=== PATIENT | male | born 1965 | race Caucasian/White ===

== ENCOUNTER 2017-10-16 18:22 | Inpatient (IN) | END 2017-11-05 16:15 | disposition home or self-care (01) | DRG 854 ==

== ENCOUNTER 2018-02-13 14:26 | Emergency (ER) | END 2018-02-13 19:52 | disposition home or self-care (01) ==

== ENCOUNTER 2018-03-13 17:44 | Inpatient (IN) | END 2018-03-18 18:57 | disposition home health service (06) | DRG 617 ==

== ENCOUNTER 2018-07-03 15:40 | Inpatient (IN) | payer OTHER ==
[~2018-07-03] VITALS: Ht 162.6 cm; Wt 76.1 kg
[~2018-07-03 15:40] MED LIST: LINA5TAB PO; OXYC-438 PO
[2018-07-03] MEDS ORDERED: SOD CHLORIDE 0.9% 500 ML IV STA (21:02)
[2018-07-03] MEDS ORDERED: KETOROLAC 15 MG INJ IV STA (21:02)
--- NOTE | 2018-07-03 21:02 | ERD ---
ER Documentation Chief Complaint Chief Complaint R FOOT DIABETIC ULCER HPI 52-year-old man with a long history of diabetic foot ulcers, foot osteomyelitis, status post left fifth and fourth toe amputation presents with increasing pain, swelling, redness to both feet and purulent malodorous discharge from the sole of the left foot. He denies using antibiotics recently, he has had fever times 2 days, denies cough or sore throat, no abdominal pain, no vomiting or diarrhea, no chest pain or shortness of breath. ROS All systems reviewed and are negative except as per history of present illness. Medications Home Meds Active Scripts Linagliptin (TRADJENTA) 5 Mg Tablet, 5 MG PO DAILY for 30 Days, TAB Prov:GINA SUTTON MD 03/18/18 Oxycodone HCl/Acetaminophen (Oxycodone-Acetaminophen 5-325) 1 Each Tablet, 1 TAB PO Q4H PRN for MODERATE PAIN LEVEL 4-6 for 10 Days, TAB Prov:GINA SUTTON MD 03/18/18 Allergies Allergies: Coded Allergies: No Known Allergy (Unverified , 03/13/18) PMhx/Soc Diabetic foot ulcers, status post left fifth and fourth toe amputations, osteomyelitis of the feet, peripheral vascular disease, peripheral neuropathy, hypertension, chronic anemia, chronic kidney disease, history of foot gangrene History of Surgery: Yes (L 4th AND 5th toe amputation) Anesthesia Reaction: No Hx Neurological Disorder: No Hx Respiratory Disorders: No Hx Cardiac Disorders: No Hx Psychiatric Problems: No Hx Miscellaneous Medical Probl: Yes (DM, diabetic foot ulcers) Hx Alcohol Use: Yes (Former alcohol use) Hx Substance Use: No Hx Tobacco Use: No Smoking Status: Never smoker FmHx Family History: diabetes Physical Exam Vitals Vital Signs Date Temp Pulse Resp B/P (MAP) Pulse Ox O2 O2 Flow FiO2 Time Delivery Rate 07/03/18 98.0 101 18 192/93 99 15:54 (126) Physical Exam Const: No acute distress, afebrile HEENT: No jaundice, no icterus, normocephalic atraumatic Resp: Clear to auscultation bilaterally Cardio: Tachycardic and regular, no murmurs Abd: Soft, non tender, non distended. Normal bowel sounds Skin: No petechiae or rashes Back: No midline or flank tenderness Ext: No cyanosis, dry gangrenous ulcer to the sole of the right foot with skin induration and erythema to the dorsal aspects of both feet. There is ma lodorous purulent discharge from the sole of the left foot Neur: Awake and alert x3, no focal deficits or facial asymmetry, pupils equal round reactive to light Psych: Normal Mood and Affect Result Diagram: 07/03/18211807/03/182118 Results 24 hrs Laboratory Tests Test 07/03/18 21:19 White Blood Count 8.7 10^3/ul Red Blood Count 2.71 10^6/ul Hemoglobin 8.7 g/dl Hematocrit 24.7 % Mean Corpuscular Volume 91.1 fl Mean Corpuscular Hemoglobin 32.1 pg Mean Corpuscular Hemoglobin Concent 35.2 g/dl Red Cell Distribution Width 12.2 % Platelet Count 186 10^3/UL Mean Platelet Volume 9.3 fl Immature Granulocytes % 0.300 % Neutrophils % 69.0 % Lymphocytes % 19.3 % Monocytes % 9.2 % Eosinophils % 2.0 % Basophils % 0.2 % Nucleated Red Blood Cells % 0.0 /100WBC Immature Granulocytes # 0.030 10^3/ul Neutrophils # 6.0 10^3/ul Lymphocytes # 1.7 10^3/ul Monocytes # 0.8 10^3/ul Eosinophils # 0.2 10^3/ul Basophils # 0.0 10^3/ul Nucleated Red Blood Cells # 0.0 10^3/ul Prothrombin Time 14.0 Sec Prothrombin Time Ratio 1.1 INR International Normalized Ratio 1.07 Activated Partial Thromboplast Time 45.7 Sec Sodium Level 139 mmol/L Potassium Level 4.4 mmol/L Chloride Level 104 mmol/L Carbon Dioxide Level 25 mmol/L Anion Gap 10 Blood Urea Nitrogen 32 mg/dl Creatinine 1.79 mg/dl Est Glomerular Filtrat Rate mL/min 40 mL/min Glucose Level 171 mg/dl Calcium Level 9.0 mg/dl Total Bilirubin 1.0 mg/dl Direct Bilirubin 0.00 mg/dl Indirect Bilirubin 1.0 mg/dl Aspartate Amino Transf (AST/SGOT) 30 IU/L Alanine Aminotransferase (ALT/SGPT) 28 IU/L Alkaline Phosphatase 82 IU/L Ammonia 20 umol/l C-Reactive Protein 16.4 mg/dl Total Protein 6.9 g/dl Albumin 3.5 g/dl Globulin 3.40 g/dl Albumin/Globulin Ratio 1.02 Lipase 31 U/L Ethyl Alcohol Level < 10.0 mg/dl Current Medications Medications Dose Sig/Bridger Start Time Status Last (Trade) Ordered Route PRN Stop Time Admin Dose Reason Admin Sodium 500 ml @ Q1H STAT 07/03/18 DC 07/03/18 Chloride 500 mls/hr IV 21:02 07/03/18 21:34 22:01 Ketorolac 15 mg ONCE STAT 07/03/18 DC 07/03/18 Tromethamine IV 21:02 07/03/18 21:34 (Toradol) 21:07 Cefepime HCl 50 ml @ ONCE ONCE 07/03/18 DC 07/03/18 100 mls/hr IVPB 21:30 07/03/18 21:35 21:59 Vancomycin 250 ml @ ONCE ONCE 07/03/18 07/03/18 HCl 125 mls/hr IVPB 21:30 07/03/18 22:16 23:29 Procedures/MDM IV line was established patient was placed on wood miller rhythm strip revealed a sinus tachycardia at 100 Bpm with upright P and T waves. Patient was afebrile, blood and wound cultures were ordered results are pending I will follow-up. I administered 1 L normal saline IV, Toradol 15 mg IV, cefepime 1 g IV and vancomycin 1 g IV One AP view of the chest performed, read by me reveals no acute infiltrates, normal mediastinum, sharp costophrenic and cardiac borders, no air under the diaphragm. Otherwise unremarkable chest x-ray. X-ray left foot 3V Interpreted by me: Bones: Amputations of the left fifth and fourth phalanx Joints: No dislocation Foreign body: Vascular calcification X-ray right foot 3V Interpreted by me: Bones: No fracture Joints: No dislocation Foreign body: Vascular calcification CBC reveals anemia with hemoglobin of 8.7, electrolytes revealed dehydration with a BUN/creatinine of 32/1.8, C-reactive protein elevated at 16, liver function tests unremarkable, ethanol level negative Patient has gangrene, cellulitis, and infected diabetic foot ulcers. He will be admitted to [facility] for continued IV antibiotics as well as infectious disease and surgical consultations although this will be deferred to admitting team. Departure Diagnosis: Primary Impression: Open wound of left foot Encounter type: initial encounter Qualified Codes: S91.302A - Unspecified open wound, left foot, initial encounter Additional Impressions: Gangrene of right foot Cellulitis of foot Osteomyelitis Osteomyelitis type: unspecified type Osteomyelitis location: foot Laterality: right Qualified Codes: M86.9 - Osteomyelitis, unspecified Anemia Anemia type: unspecified type Qualified Codes: D64.9 - Anemia, unspecified Condition: Fair MARCO ANTONIO GARCIA MD Jul 03, 2018 21:02
[2018-07-03] MEDS ORDERED: VANCOMYCIN 1 GM (PMX) 250 ML IVPB ONE (21:30)
[2018-07-03] MEDS ORDERED: CEFEPIME 1GM/50 ML (PMX) 50 ML IVPB ONE (21:30)
[2018-07-04 00:05] VITALS: BP 172/92; PULSE 88; RESP 18
[2018-07-04 00:50] VITALS: Ht 162.6 cm; Wt 76.1 kg
[2018-07-04] MEDS ORDERED: HYDROCODONE/APAP (5/325) TAB PO PRN (01:30)
[2018-07-04 01:59] VITALS: BP 179/95; PULSE 97; RESP 18
[2018-07-04] MEDS ORDERED: GLUCOSE GEL 15 GRAM TUBE BUCCAL PRN (02:00)
[2018-07-04] MEDS ORDERED: PENDING SANTYL ORDER FOR WOUND CARE XX PRN (02:00)
[2018-07-04] MEDS ORDERED: GLUCAGON 1 MG INJ IM PRN (02:00)
[2018-07-04] MEDS ORDERED: DEXTROSE 50% 50 ML SYRINGE IV PRN ×2 (02:00)
[2018-07-04] MEDS ORDERED: GLUCOSE GEL 15 GRAM TUBE PO PRN ×2 (02:00)
[2018-07-04] MEDS: PANTOPRAZOLE (EC) 40 MG TAB PO SCH (06:04)
[2018-07-04 06:32] VITALS: BP 133/74; PULSE 73; RESP 16
[2018-07-04 08:00] VITALS: BP 126/68; PULSE 76; RESP 18
[2018-07-04] MEDS: CEFTRIAXONE 1 GM/50 ML (PMX) 50 ML IVPB SCH (08:14)
[2018-07-04] MEDS: ENOXAPARIN 40 MG/0.4 ML SYG SC SCH (08:20)
[2018-07-04] MEDS: INSULIN ASPART [NOVOLOG] 3 ML PEN SC SCH ×4 (08:23→21:26)
--- NOTE | 2018-07-04 13:19 | HP ---
Date/Time of Note Date/Time of Note DATE: 07/04/18 TIME: 13:16 Assessment/Plan VTE Prophylaxis Risk score (from Ns)>0 risk: 2 SCD applied (from [facility] [place]): No SCD contraindicated: other Pharmacological prophylaxis: LMWH Lines/Catheters IV Catheter Type (from [facility]): Saline Lock Urinary Cath still in place: No Assessment/Plan Hospital Course 1. Left foot cellulitis. Discoloration of 2 and 3 toes. S/p amputation of the left fourth digit and transmetatarsal amputation of the fifth digit. 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 On Xray soft tissue swelling. Vascular ca lcification consistent with atherosclerotic disease. 2. Anemia 3. Overweight 4. DANIELLE, creatinine 1.97. Pt creatinine was 1.73 in [facility] February 2018 and then return to normal 5. DM type II with diabetic neuropathy 6. Hypertension 7. Right foot sole wound 8. Peripheral vascular disease. On Duplex US 09/2017 Monophasic wave forms in bilateral posterior tibial arteries and dorsalis pedis arteries consistent with a significant bilateral infrapopliteal stenosis. Assessment/Plan -DVT prophylaxis Lovenox -GI prophylaxis Protonix -iron supplement BID -MRI left foot -ID consult dr Wolfe. aware -Podiatry consult dr Betancur. knows -wound care -repeat arterial US -Dr Vazquez consult, aware -gentle hydration Result Diagram: 07/04/18 0546 07/04/18 0546 Results 24hrs Laboratory Tests Test 07/03/18 21:19 07/04/18 00:29 07/04/18 05:46 07/04/18 08:13 White Blood Count 8.7 # 6.5 # Red Blood Count 2.71 L 2.27 L Hemoglobin 8.7 L 7.4 L Hematocrit 24.7 L 21.2 L Mean Corpuscular Volume 91.1 93.4 Mean Corpuscular 32.1 32.6 Hemoglobin Mean Corpuscular 35.2 34.9 Hemoglobin Concent Red Cell Distribution 12.2 11.9 Width Platelet Count 186 157 Mean Platelet Volume 9.3 10.1 Immature Granulocytes % 0.300 0.500 H Neutrophils % 69.0 70.1 Lymphocytes % 19.3 17.7 Monocytes % 9.2 9.1 Eosinophils % 2.0 2.3 Basophils % 0.2 0.3 Nucleated Red Blood 0.0 0.0 Cells % Immature Granulocytes # 0.030 0.030 Neutrophils # 6.0 4.5 Lymphocytes # 1.7 1.2 Monocytes # 0.8 0.6 Eosinophils # 0.2 0.2 Basophils # 0.0 0.0 Nucleated Red Blood 0.0 0.0 Cells # Prothrombin Time 14.0 Prothrombin Time Ratio 1.1 INR International 1.07 Normalized Ratio Activated 45.7 H Partial Thromboplast Time Sodium Level 139 142 Potassium Level 4.4 4.5 Chloride Level 104 109 Carbon Dioxide Level 25 27 Anion Gap 10 6 Blood Urea Nitrogen 32 H 32 H Creatinine 1.79 H 1.97 H Est Glomerular Filtrat 40 L 36 L Rate mL/min Glucose Level 171 174 Calcium Level 9.0 8.6 Total Bilirubin 1.0 1.1 Direct Bilirubin 0.00 0.00 Indirect Bilirubin 1.0 1.1 Aspartate Amino 30 21 Transf (AST/SGOT) Alanine 28 18 Aminotransferase (ALT/SG PT) Alkaline Phosphatase 82 68 Ammonia 20 C-Reactive Protein 16.4 H Total Protein 6.9 6.1 Albumin 3.5 2.9 L Globulin 3.40 H 3.20 Albumin/Globulin Ratio 1.02 0.90 Lipase 31 Ethyl Alcohol Level < 10.0 H Bedside Glucose 137 177 Test 07/04/18 12:19 Bedside Glucose 236 H HPI/ROS Admit Date/Time Admit Date/Time Jul 03, 2018 at 22:10 Hx of Present Illness 52-year-old man with a long history of diabetic foot ulcers, foot osteomyelitis, status post left fifth and fourth toe amputation presents to ER with increasing pain, swelling, redness to both feet and purulent malodorous discharge from the sole of the left foot. He denies using antibiotics recently, he has had fever for 2 days. Pt reported that he seeng dr Betancur regularly and following with medicaions daily. He said he checks his BS and it is normal. On admission, vital signs were stable. The patient had left lower extremity edema with warmth, left foot with ulceration discoloration, foul smelling, some purulence on the skin of the right foot. The patient was started on IV vancomycin in ER. Foot x-ray was done that showed cellulitis and atherosclerotic changes. Surgical history: s/p L 4th AND 5th toe amputation ROS Constitutional: chills, febrile; No no complaints, No improved, No diaphoresis, No disoriented, No fatigue, No nausea, No poor po, No weight change, No other Respiratory: pain, cough; No no complaints, No pleuritic pain, No shortness of breath, No sputum, No wheezing, No other Cardiovascular: chest pain, edema; No no complaints, No lightheadedness, No orthopenea, No palpitations, No paroxysmal nocturnal dyspnea, No other Gastrointestinal: blood, constipation; No no complaints, No pain, No decreased appetite, No diarrhea, No flatus, No nausea, No passing stool, No vomiting, No other Genitourinary: bleeding, dysuria, flank pain; No no complaints, No discharge, No hematuria, No other Musculoskeletal: swelling (toes left foot) PMH/Family/Social Past Medical History Medical History: diabetes, hypertension Medications Current Medications Insulin Aspart (Novolog Insulin Pen) NOVOLOG *MODERATE* ALGORITHM WITH MEALS BEDTIME SC Last administered on 07/04/18 12:21; Admin Dose 6 UNIT; Start 07/04/18 at 08:00 Acetaminophen/ Hydrocodone Bitart ([place] (5/325)) 1 tab Q4H PRN PO MODERATE PAIN LEVEL 4-6; Start 07/04/18 at 01:30 Enoxaparin Sodium (Lovenox) 40 mg DAILY SC Last administered on 07/04/18 08:20; Admin Dose 40 MG; Start 07/04/18 at 09:00 Pantoprazole (Protonix Tab) 40 mg DAILY@06 PO Last administered on 07/04/18 06:04; Admin Dose 40 MG; Start 07/04/18 at 06:00 Acetaminophen (Tylenol Tab) 650 mg Q6H PRN PO MILD PAIN(1-3)OR ELEVATED TEMP; Start 07/04/18 at 01:30 Clonidine (Catapres) 0.1 mg TID PO Last administered on 07/04/18 12:20; Admin Dose 0.1 MG; Start 07/04/18 at 09:00 Clonidine (Catapres) 0.1 mg Q6H PRN PO ELEVATED BLOOD PRESSURE Last administered on 07/04/18 01:47; Admin Dose 0.1 MG; Start 07/04/18 at 01:30 Ceftriaxone Sodium 50 ml @ 100 mls/hr Q24H IVPB Last administered on 3/9/19at 08:14; Admin Dose 100 MLS/HR; Start 07/04/18 at 09:00 Miscellaneous Information 1 ea NOTE XX ; Start 07/04/18 at 02:00 Glucose (Glutose) 15 gm Q15M PRN PO DECREASED GLUCOSE; Start 07/04/18 at 02:00 Glucose (Glutose) 22.5 gm Q15M PRN PO DECREASED GLUCOSE; Start 07/04/18 at 02:00 Dextrose (D50w Syringe) 25 ml Q15M PRN IV DECREASED GLUCOSE; Start 07/04/18 at 02:00 Dextrose (D50w Syringe) 50 ml Q15M PRN IV DECREASED GLUCOSE; Start 07/04/18 at 02:00 Glucagon (Glucagen) 1 mg Q15M PRN IM DECREASED GLUCOSE; Start 07/04/18 at 02:00 Glucose (Glutose) 15 gm Q15M PRN BUCCAL DECREASED GLUCOSE; Start 07/04/18 at 02:00 Bisacodyl (Dulcolax) 10 mg BID PRN PO CONSTIPATION; Start 07/04/18 at 01:30 [facility]isc[facility] This patient mora... PRN PRN XX WOUND CARE; Start 07/04/18 at 02:00 Coded Allergies: No Known Allergy (Unverified , 07/04/18) Past Surgical History Past Surgical Hx: other (Yes (L 4th AND 5th toe amputation)) Family History Significant Family History: diabetes Social History Alcohol Use: none Smoking Status: Never smoker Drug Use: none Exam/Review of Systems Vital Signs Vitals Vital Signs Date Temp Pulse Resp B/P (MAP) Pulse Ox O2 O2 Flow FiO2 Time Delivery Rate 07/04/18 98.4 76 18 126/68 99 Room Air 08:00 (87) Intake and Output 07/03/18 07/03/18 07/04/18 1515:00 23:00 07:00 IntakeIntake Total 250 ml BalanceBalance 250 ml Exam Constitutional: alert, oriented ENMT: nl external ears & nose Neck: supple Respiratory: clear to auscultation Cardiovascular: regular rate and rhythm Gastrointestinal: soft Genitourinary - Male: CVA tenderness; No nl penis, No nl scrotum, No discharge, No other Musculoskeletal: swelling (left foot 4, 5 amputation, 2. 3 toes discoloration, foul smelling. right foot sle ulcer) Extremities: edema; No normal pulses, No calf tenderness, No cyanosis, No clubbing, No pitting pedal edema, No palpable cord, No tenderness, No other Neurological: CAUSTIC LOADER II-XII intact Skin: other (wounds) TEODORO RIDER Jul 04, 2018 13:19
[2018-07-04 14:00] VITALS: BP 137/78; PULSE 79; RESP 18
[2018-07-04] MEDS ORDERED: VANCOMYCIN IV PER PHARMACY XX SCH (14:00)
--- NOTE | 2018-07-04 14:11 | CONS ---
Assessment/Plan Assessment/Plan Assessment/Plan (Daily) Peripheral vascular disease Status post amputation left fourth and fifth toe Patient now with gangrene of the right foot Chronic renal failure with a creatinine of 1.9 Doppler ultrasound from September 2017 shows monophasic flows in the lower extremity Will continue antibiotic Repeat Doppler ultrasound Will need an angiogram when cleared by nephrology Consultation Date/Type/Reason Admit Date/Time Jul 03, 2018 at 22:10 Date of Consultation: Jul 04, 2018 Type of Consult Vascular surgery Reason for Consultation Peripheral vascular disease Date/Time of Note DATE: 07/04/18 TIME: 14:09 Hx of Present Illness 52-year-old male with a history of hypertension diabetes peripheral vascular disease chronic renal failure creatinine of 1.9 status post amputation of left fourth and fifth toes now being admitted because of gangrene of the right foot currently being treated with antibiotics ENT: no complaints Respiratory: no complaints Cardiovascular: no complaints Gastrointestinal: no complaints Genitourinary: no complaints Musculoskeletal: no complaints Skin: no complaints Neurologic: no complaints Past Medical History Medical History: diabetes, hypertension Home Meds Active Scripts Linagliptin (TRADJENTA) 5 Mg Tablet, 5 MG PO DAILY for 30 Days, TAB Prov:GINA SUTTON MD 03/18/18 Discontinued Scripts Oxycodone HCl/Acetaminophen (Oxycodone-Acetaminophen 5-325) 1 Each Tablet, 1 TAB PO Q4H PRN for MODERATE PAIN LEVEL 4-6 for 10 Days, TAB Prov:GINA SUTTON MD 03/18/18 Medications Current Medications Insulin Aspart (Novolog Insulin Pen) NOVOLOG *MODERATE* ALGORITHM WITH MEALS BEDTIME SC Last administered on 07/04/18at 12:21; Admin Dose 6 UNIT; Start at 08:00 Acetaminophen/ Hydrocodone Bitart ([place] (5/325)) 1 tab Q4H PRN PO MODERATE PAIN LEVEL 4-6; Start 07/04/18 at 01:30 Enoxaparin Sodium (Lovenox) 40 mg DAILY SC Last administered on 07/04/18at 08:20; Admin Dose 40 MG; Start 07/04/18 at 09:00 Pantoprazole (Protonix Tab) 40 mg DAILY@06 PO Last administered on 07/04/18at 06:04; Admin Dose 40 MG; Start 07/04/18 at 06:00 Acetaminophen (Tylenol Tab) 650 mg Q6H PRN PO MILD PAIN(1-3)OR ELEVATED TEMP; Start 07/04/18 at 01:30 Clonidine (Catapres) 0.1 mg TID PO Last administered on 07/04/18at 12:20; Admin Dose 0.1 MG; Start 07/04/18 at 09:00 Clonidine (Catapres) 0.1 mg Q6H PRN PO ELEVATED BLOOD PRESSURE Last administered on 07/04/18at 01:47; Admin Dose 0.1 MG; Start 07/04/18 at 01:30 Ceftriaxone Sodium 50 ml @ 100 mls/hr Q24H IVPB Last administered on 07/04/18at 08:14; Admin Dose 100 MLS/HR; Start 07/04/18 at 09:00 Miscellaneous Information 1 ea NOTE XX ; Start 07/04/18 at 02:00 Glucose (Glutose) 15 gm Q15M PRN PO DECREASED GLUCOSE; Start 07/04/18 at 02:00 Glucose (Glutose) 22.5 gm Q15M PRN PO DECREASED GLUCOSE; Start 07/04/18 at 02:00 Dextrose (D50w Syringe) 25 ml Q15M PRN IV DECREASED GLUCOSE; Start 07/04/18 at 02:00 Dextrose (D50w Syringe) 50 ml Q15M PRN IV DECREASED GLUCOSE; Start 07/04/18 at 02:00 Glucagon (Glucagen) 1 mg Q15M PRN IM DECREASED GLUCOSE; Start 07/04/18 at 02:00 Glucose (Glutose) 15 gm Q15M PRN BUCCAL DECREASED GLUCOSE; Start 07/04/18 at 02:00 Bisacodyl (Dulcolax) 10 mg BID PRN PO CONSTIPATION; Start 07/04/18 at 01:30 Miscellaneous Information [facility] This patient mora... PRN PRN XX WOUND CARE; Start 07/04/18 at 02:00 Vancomycin HCl (Vanco Iv Per Pharmacy) VANCOMYCIN PER PHARMACY PER PROTOCOL XX ; Start 07/04/18 at 14:00 Pentoxifylline (Trental) 400 mg TID PO ; Start 07/04/18 at 21:00 Sodium Chloride 1,000 ml @ 40 mls/hr Q24H IV ; Start 07/04/18 at 14:00 Linagliptin (Tradjenta) 5 mg DAILY PO ; Start 07/04/18 at 14:00 Ferric Sodium Gluconate Complex 125 mg/Sodium Chloride 110 ml @ 110 mls/hr DAILY@1300 IVPB ; Start 07/05/18 at 13:00; Stop 07/09/18 at 13:59 Allergies: Coded Allergies: No Known Allergy (Unverified , 07/04/18) Past Surgical History Past Surgical Hx: other (Yes (L 4th AND 5th toe amputation)) Social History Alcohol Use: none Smoking Status: Never smoker Drug Use: none Exam/Review of Systems Exam Vitals Vital Signs Date Temp Pulse Resp B/P (MAP) Pulse Ox O2 O2 Flow FiO2 Time Delivery Rate 07/04/18 98.4 76 18 126/68 99 Room Air 08:00 (87) Intake and Output 07/03/18 07/03/18 07/04/18 1515:00 23:00 07:00 IntakeIntake Total 250 ml BalanceBalance 250 ml Head: normocephalic, atraumatic Eyes: nl conjunctiva, EOMI, nl lids, nl sclera, PERRL ENMT: nl external ears & nose, nl lips & teeth, nl nasal mucosa & septum Neck: supple, non-tender Respiratory: clear to auscultation, normal air movement Cardiovascular: regular rate and rhythm, nl pulses Gastrointestinal: soft, nl liver, spleen, non-tender Musculoskeletal: nl extremities to inspection, nl gait and stance Additional Comments There is palpable femoral pulses bilaterally I cannot palpate popliteal or pedal pulses but the feet are warm down to the mid foot with capillary refill which is about 2-3 seconds there is gangrene of the distal right foot left fourth and f ifth toes are amputated 1+ edema in the feet bilaterally Results Result Diagram: 07/04/18 0546 07/04/18 0546 Results 24hrs Laboratory Tests Test 07/03/18 21:19 07/04/18 00:29 07/04/18 05:46 07/04/18 08:13 White Blood Count 8.7 # 6.5 # Red Blood Count 2.71 L 2.27 L Hemoglobin 8.7 L 7.4 L Hematocrit 24.7 L 21.2 L Mean Corpuscular Volume 91.1 93.4 Mean Corpuscular 32.1 32.6 Hemoglobin Mean Corpuscular 35.2 34.9 Hemoglobin Concent Red Cell Distribution 12.2 11.9 Width Platelet Count 186 157 Mean Platelet Volume 9.3 10.1 Immature Granulocytes % 0.300 0.500 H Neutrophils % 69.0 70.1 Lymphocytes % 19.3 17.7 Monocytes % 9.2 9.1 Eosinophils % 2.0 2.3 Basophils % 0.2 0.3 Nucleated Red Blood 0.0 0.0 Cells % Immature Granulocytes # 0.030 0.030 Neutrophils # 6.0 4.5 Lymphocytes # 1.7 1.2 Monocytes # 0.8 0.6 Eosinophils # 0.2 0.2 Basophils # 0.0 0.0 Nucleated Red Blood 0.0 0.0 Cells # Prothrombin Time 14.0 Prothrombin Time Ratio 1.1 INR International 1.07 Normalized Ratio Activated 45.7 H Partial Thromboplast Time Sodium Level 139 142 Potassium Level 4.4 4.5 Chloride Level 104 109 Carbon Dioxide Level 25 27 Anion Gap 10 6 Blood Urea Nitrogen 32 H 32 H Creatinine 1.79 H 1.97 H Est Glomerular Filtrat 40 L 36 L Rate mL/min Glucose Level 171 174 Calcium Level 9.0 8.6 Total Bilirubin 1.0 1.1 Direct Bilirubin 0.00 0.00 Indirect Bilirubin 1.0 1.1 Aspartate Amino 30 21 Transf (AST/SGOT) Alanine 28 18 Aminotransferase (ALT/SG PT) Alkaline Phosphatase 82 68 Ammonia 20 C-Reactive Protein 16.4 H Total Protein 6.9 6.1 Albumin 3.5 2.9 L Globulin 3.40 H 3.20 Albumin/Globulin Ratio 1.02 0.90 Lipase 31 Ethyl Alcohol Level < 10.0 H Bedside Glucose 137 177 Test 07/04/18 12:19 Bedside Glucose 236 H Medications Medication Current Medications Insulin Aspart (Novolog Insulin Pen) NOVOLOG *MODERATE* ALGORITHM WITH MEALS BEDTIME SC Last administered on 07/04/18at 12:21; Admin Dose 6 UNIT; Start 07/04/18 at 08:00 Acetaminophen/ Hydrocodone Bitart ([place] (5/325)) 1 tab Q4H PRN PO MODERATE PAIN LEVEL 4-6; Start 07/04/18 at 01:30 Enoxaparin Sodium (Lovenox) 40 mg DAILY SC Last administered on 07/04/18at 08:20; Admin Dose 40 MG; Start 07/04/18 at 09:00 Pantoprazole (Protonix Tab) 40 mg DAILY@06 PO Last administered on 07/04/18at 06:04; Admin Dose 40 MG; Start 07/04/18 at 06:00 Acetaminophen (Tylenol Tab) 650 mg Q6H PRN PO MILD PAIN(1-3)OR ELEVATED TEMP; Start 07/04/18 at 01:30 Clonidine (Catapres) 0.1 mg TID PO Last administered on 07/04/18at 12:20; Admin Dose 0.1 MG; Start 07/04/18 at 09:00 Clonidine (Catapres) 0.1 mg Q6H PRN PO ELEVATED BLOOD PRESSURE Last adminis tered on 07/04/18at 01:47; Admin Dose 0.1 MG; Start 07/04/18 at 01:30 Ceftriaxone Sodium 50 ml @ 100 mls/hr Q24H IVPB Last administered on 07/04/18at 08:14; Admin Dose 100 MLS/HR; Start 07/04/18 at 09:00 Miscellaneous Information 1 ea NOTE XX ; Start 07/04/18 at 02:00 Glucose (Glutose) 15 gm Q15M PRN PO DECREASED GLUCOSE; Start 07/04/18 at 02:00 Glucose (Glutose) 22.5 gm Q15M PRN PO DECREASED GLUCOSE; Start 07/04/18 at 02:00 Dextrose (D50w Syringe) 25 ml Q15M PRN IV DECREASED GLUCOSE; Start 07/04/18 at 02:00 Dextrose (D50w Syringe) 50 ml Q15M PRN IV DECREASED GLUCOSE; Start 07/04/18 at 02:00 Glucagon (Glucagen) 1 mg Q15M PRN IM DECREASED GLUCOSE; Start 07/04/18 at 02:00 Glucose (Glutose) 15 gm Q15M PRN BUCCAL DECREASED GLUCOSE; Start 07/04/18 at 02:00 Bisacodyl (Dulcolax) 10 mg BID PRN PO CONSTIPATION; Start 07/04/18 at 01:30 Miscellaneous Information ([facility] This patient mora... PRN PRN XX WOUND CARE; Start 07/04/18 at 02:00 Vancomycin HCl (Vanco Iv Per Pharmacy) VANCOMYCIN PER PHARMACY PER PROTOCOL XX ; Start 07/04/18 at 14:00 Pentoxifylline (Trental) 400 mg TID PO ; Start 07/04/18 at 21:00 Sodium Chloride 1,000 ml @ 40 mls/hr Q24H IV ; Start 07/04/18 at 14:00 Linagliptin (Tradjenta) 5 mg DAILY PO ; Start 07/04/18 at 14:00 Ferric Sodium Gluconate Complex 125 mg/Sodium Chloride 110 ml @ 110 mls/hr DAILY@1300 IVPB ; Start 07/05/18 at 13:00; Stop 07/09/18 at 13:59 DONTRELL RODRIGUEZ MD Jul 04, 2018 14:11
[2018-07-04] MEDS: LINAGLIPTIN 5 MG TABLET PO SCH (14:27)
[2018-07-04] MEDS: SOD CHLORIDE 0.9% 1,000 ML IV SCH (14:28)
[2018-07-04] MEDS ORDERED: VANCOMYCIN 1 GM 250 ML IVPB SCH (16:00)
--- NOTE | 2018-07-04 16:07 | PN ---
DATE: 07/04/2018 TYPE OF CONSULTATION: Infectious disease consultation. REQUESTING PHYSICIAN: Dr. Shelton. HISTORY OF PRESENT ILLNESS: This is a 52-year-old man with a history of diabetic foot ulcers, osteom yelitis, status post previously left fifth and fourth toes amputation. The patient was previously see n by our service back in April. He was seen by Dr. Betancur at that time and had amputated infected toe and was discharged home. The patient came with a temperature of 98, pulse 101, respirations 18, blood pressure 192/93, saturation 99% on room air. WBC 8.7, H and H 8.7 and 24.7, platelets 186, no shift, no bands. BUN 32, creatinine 1.79, glucose 1 71. DIAGNOSTICS: Chest x-ray on admission revealed mild cardiomegaly. X-ray of right foot revealed exte nsive vascular calcifications consistent with atherosclerotic disease. X-ray of left foot revealed s tatus post amputation of the left 4th digit and transmetatarsal amputation of 5th digit, soft tissue swelling, no evidence of periosteal reaction. The patient was started on IV Rocephin, status post vancomycin dose. PAST MEDICAL HISTORY: As per history of present illness significant for diabetes, diabetic neuropath y, hypertension. SOCIAL HISTORY: The patient came from home. He is not a smoker. PHYSICAL EXAMINATION: GENERAL: Well-nourished, well-developed 52-year-old man who is awake, in no distress. HEENT: Head atraumatic, normocephalic. NECK: Supple. CHEST: Rise symmetrical. Breath sounds clear. HEART: S1, S2. ABDOMEN: Soft, bowel tones present. EXTREMITIES: Left foot erythema, edema and pressure sores on his third, second toe, right foot with plantar necrotic skin breakdown. DIAGNOSTIC IMPRESSION: This is a 52-year-old man with the above-mentioned symptoms, admitted with erma lulitis of left foot, currently on appropriate antibiotic regimen. We will continue him on vancomyci n and Rocephin, await for podiatry evaluation and consider MRI of the foot. Discussed with Dr. Karen Wolfe. Dictated By: ROXANNA SOMERS [employer]ST[employer]ER for JARVIS HOFF/JEFFREY Conf#: [id number] DID#: [id number] CC: KEMAL AZAR MD;*[facility]*
[2018-07-04 19:41] VITALS: BP 115/64; PULSE 75; RESP 20
[2018-07-04] MEDS: PENTOXIFYLLINE (SR) 400 MG TAB PO SCH (21:28)
[2018-07-04] MEDS: ACETAMINOPHEN 325 MG TAB PO PRN (21:28)
[2018-07-05 01:17] VITALS: BP 133/75; PULSE 72; RESP 20
[2018-07-05] MEDS: PANTOPRAZOLE (EC) 40 MG TAB PO SCH (05:46)
[2018-07-05 07:50] VITALS: BP 112/59; PULSE 83; RESP 20
[2018-07-05] MEDS: PENTOXIFYLLINE (SR) 400 MG TAB PO SCH ×3 (08:24→21:27)
[2018-07-05] MEDS: LINAGLIPTIN 5 MG TABLET PO SCH (08:24)
[2018-07-05] MEDS: INSULIN ASPART [NOVOLOG] 3 ML PEN SC SCH ×4 (08:26→21:00)
[2018-07-05] MEDS: ENOXAPARIN 40 MG/0.4 ML SYG SC SCH (08:26)
[2018-07-05] MEDS: CEFTRIAXONE 1 GM/50 ML (PMX) 50 ML IVPB SCH (10:01)
--- NOTE | 2018-07-05 12:24 | CONS ---
Consultation Date/Type/Reason Admit Date/Time Jul 03, 2018 at 22:10 Initial Consult Date SUBJECTIVE: Pt is awake, alert, afebrile. No acute distress. VS: stable. T: 98.0 LABS: Reviewed. WBC- 6.0 MICROBIOLOGY: WOUND CULTURE Preliminary Organism 1 STAPHYLOCOCCUS AUREUS QUANTITY 2+ DIAGNOSTICS: Chest x-ray on admission revealed mild cardiomegaly. X-ray of rig ht foot revealed extensive vascular calcifications consistent with atherosclerotic disease. X-ray of left foot revealed status post amputation of the left 4th digit and transmetatarsal amputation of 5th digit, soft tissue swelling, no evidence of periosteal reaction. ANTBX: Vancomycin and Rocephin PHYSICAL EXAMINATION: GENERAL: Well-nourished, well-developed 52-year-old man who is awake, in no distress. HEENT: Head atraumatic, normocephalic. NECK: Supple. CHEST: Rise symmetrical. Breath sounds clear. HEART: S1, S2. ABDOMEN: Soft, bowel tones present. EXTREMITIES: Left foot erythema, edema and pressure sores on his third, second toe, right foot with plantar necrotic skin breakdown. ASSESSMENT: 1. Cellulitis of left foot 2. DM 2 3.DM foot ulcers with OM and Hx S/P left fifth and fourth toes amputation. 4. HTN 5. Anemia of CD Plan: Pt is stable. Pending Podiatry eval. Continue with wound care, pain management and current IV antbx. Final cultures are pending. Vascular recommendations noted. (Will need an angiogram when cleared by nephrology) Date/Time of Note DATE: 07/05/18 TIME: 12:16 Exam/Review of Systems Exam Vitals Vital Signs Date Temp Pulse Resp B/P (MAP) Pulse Ox O2 O2 Flow FiO2 Time Delivery Rate 07/05/18 98.0 83 20 112/59 94 07:50 (76) 07/04/18 Room Air 08:00 Intake and Output 07/04/18 07/04/18 07/05/18 1414:59 22:59 06:59 IntakeIntake Total 50 ml 520 ml BalanceBalance 50 ml 520 ml Results Result Diagram: 07/05/18 0538 07/05/18 0538 Results 24hrs Laboratory Tests Test 07/04/18 12:19 07/04/18 14:30 07/04/18 17:06 07/04/18 21:24 Bedside Glucose 236 H 226 H 192 243 H Test 07/05/18 01:54 07/05/18 05:38 07/05/18 08:22 Bedside Glucose 191 158 White Blood Count 6.0 Red Blood Count 2.38 L Hemoglobin 7.7 L Hematocrit 22.2 L Mean Corpuscular 93.3 Volume Mean Corpuscular 32.4 Hemoglobin Mean Corpuscular 34.7 Hemoglobin Concent Red Cell Distribution 11.9 Width Platelet Count 154 Mean Platelet Volume 9.7 Immature Granulocytes 0.500 H % Neutrophils % 69.3 Lymphocytes % 20.8 Monocytes % 6.8 Eosinophils % 2.3 Basophils % 0.3 Nucleated Red Blood 0.0 Cells % Immature Granulocytes 0.030 # Neutrophils # 4.2 Lymphocytes # 1.3 Monocytes # 0.4 Eosinophils # 0.1 Basophils # 0.0 Nucleated Red Blood 0.0 Cells # Sodium Level 141 Potassium Level 4.4 Chloride Level 107 Carbon Dioxide Level 27 Anion Gap 7 Blood Urea Nitrogen 34 H Creatinine 2.07 H Est Glomerular 34 L Filtrat Rate mL/min Glucose Level 156 Hemoglobin A1c 6.4 H Calcium Level 8.8 Iron Level 20 L Total Iron Binding 212 L Capacity Percent Iron 9 L Saturation Medications Medication Current Medications Insulin Aspart (Novolog Insulin Pen) NOVOLOG *MODERATE* ALGORITHM WITH MEALS BEDTIME SC Last administered on 07/05/18at 08:26; Admin Dose 2 UNIT; Start 07/04/18 at 08:00 Acetaminophen/ Hydrocodone Bitart ([place] (5/325)) 1 tab Q4H PRN PO MODERATE PAIN LEVEL 4-6; Start 07/04/18 at 01:30 Enoxaparin Sodium (Lovenox) 40 mg DAILY SC Last administered on 07/05/18at 08:26; Admin Dose 40 MG; Start 07/04/18 at 09:00 Pantoprazole (Protonix Tab) 40 mg DAILY@06 PO Last administered on 07/05/18at 05:46; Admin Dose 40 MG; Start 07/04/18 at 06:00 Acetaminophen (Tylenol Tab) 650 mg Q6H PRN PO MILD PAIN(1-3)OR ELEVATED TEMP Last administered on 07/04/18at 21:28; Admin Dose 650 MG; Start 07/04/18 at 01:30 Clonidine (Catapres) 0.1 mg TID PO Last administered on 07/05/18at 08:24; Admin Dose 0.1 MG; Start 07/04/18 at 09:00 Clonidine (Catapres) 0.1 mg Q6H PRN PO ELEVATED BLOOD PRESSURE Last administered on 07/04/18at 01:47; Admin Dose 0.1 MG; Start 07/04/18 at 01:30 Ceftriaxone Sodium 50 ml @ 100 mls/hr Q24H IVPB Last administered on 07/05/18at 10:01; Admin Dose 100 MLS/HR; Start 07/04/18 at 09:00 Miscellaneous Information 1 ea NOTE XX ; Start 07/04/18 at 02:00 Glucose (Glutose) 15 gm Q15M PRN PO DECREASED GLUCOSE; Start 07/04/18 at 02:00 Glucose (Glutose) 22.5 gm Q15M PRN PO DECREASED GLUCOSE; Start 07/04/18 at 02:00 Dextrose (D50w Syringe) 25 ml Q15M PRN IV DECREASED GLUCOSE; Start 07/04/18 at 02:00 Dextrose (D50w Syringe) 50 ml Q15M PRN IV DECREASED GLUCOSE; Start 07/04/18 at 02:00 Glucagon (Glucagen) 1 mg Q15M PRN IM DECREASED GLUCOSE; Start 07/04/18 at 02:00 Glucose (Glutose) 15 gm Q15M PRN BUCCAL DECREASED GLUCOSE; Start 07/04/18 at 02: 00 Bisacodyl (Dulcolax) 10 mg BID PRN PO CONSTIPATION; Start 07/04/18 at 01:30 Miscellaneous Information (Pending [facility] Order For Wound Care) This patient mora... PRN PRN XX WOUND CARE; Start 07/04/18 at 02:00 Vancomycin HCl (Vanco Iv Per Pharmacy) VANCOMYCIN PER PHARMACY PER PROTOCOL XX ; Start 07/04/18 at 14:00 Pentoxifylline (Trental) 400 mg TID PO Last administered on 07/05/18at 08:24; Admin Dose 400 MG; Start 07/04/18 at 21:00 Sodium Chloride 1,000 ml @ 40 mls/hr Q24H IV Last administered on 07/04/18at 14:28; Admin Dose 40 MLS/HR; Start 07/04/18 at 14:00 Linagliptin (Tradjenta) 5 mg DAILY PO Last administered on 07/05/18at 08:24; Admin Dose 5 MG; Start 07/04/18 at 14:00 Ferric Sodium Gluconate Complex 125 mg/Sodium Chloride 110 ml @ 110 mls/hr DAILY@1300 IVPB ; Start 07/05/18 at 13:00; Stop 07/09/18 at 13:59 Vancomycin HCl 250 ml @ 125 mls/hr Q24H IVPB Last administered on 07/04/18at 16 :17; Admin Dose 125 MLS/HR; Start 07/04/18 at 16:00 MATIAS HASTINGS Jul 05, 2018 12:24
[2018-07-05 12:45] VITALS: BP 147/85; PULSE 71
[2018-07-05] MEDS: SOD FERRIC GLUC COMPLX 125 MG in SOD CHLORIDE 0.9% 100 ML IVPB SCH (12:46)
[2018-07-05 14:39] VITALS: BP 113/66; PULSE 69; RESP 18
--- NOTE | 2018-07-05 17:31 | PN ---
Date/Time of Note Date/Time of Note DATE: 07/05/18 TIME: 17:30 Assessment/Plan VTE Prophylaxis Risk score (from Ns)>0 risk: 2 [place] [facility] contraindicated: other Pharmacological prophylaxis: other Pharm contraindication: other Lines/Catheters IV Catheter Type (from [facility]): [place] Urinary Cath still in place: No Assessment/Plan Hospital Course 1. Left foot cellulitis. Discoloration of 2 and 3 toes. S/p amputation of the left fourth digit and transmetatarsal amputation of the fifth digit. 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 On Xray soft tissue swelling. Vascular calcification consistent with atherosclerotic disease. 2. Anemia 3. Overweight 4. DANIELLE, creatinine 1.97. Pt creatinine was 1.73 in [facility] February 2018 and then return to normal 5. DM type II with diabetic neuropathy 6. Hypertension 7. Right foot sole wound 8. Peripheral vascular disease. On Duplex US 09/2017 Monophasic wave forms in bilateral posterior tibial arteries and dorsalis pedis arteries consistent with a significant bilateral infrapopliteal stenosis. plan per id and vascular Result Diagram: 07/05/18 0538 07/05/18 0538 Results 24hrs Laboratory Tests Test 07/04/18 21:24 07/05/18 01:54 07/05/18 05:38 07/05/18 08:22 Bedside Glucose 243 H 191 158 White Blood Count 6.0 Red Blood Count 2.38 L Hemoglobin 7.7 L Hematocrit 22.2 L Mean Corpuscular 93.3 Volume Mean Corpuscular 32.4 Hemoglobin Mean Corpuscular 34.7 Hemoglobin Concent Red Cell 11.9 Distribution Width Platelet Count 154 Mean Platelet Volume 9.7 Immature 0.500 H Granulocytes % Neutrophils % 69.3 Lymphocytes % 20.8 Monocytes % 6.8 Eosinophils % 2.3 Basophils % 0.3 Nucleated Red Blood 0.0 Cells % Immature 0.030 Granulocytes # Neutrophils # 4.2 Lymphocytes # 1.3 Monocytes # 0.4 Eosinophils # 0.1 Basophils # 0.0 Nucleated Red Blood 0.0 Cells # Sodium Level 141 Potassium Level 4.4 Chloride Level 107 Carbon Dioxide Level 27 Anion Gap 7 Blood Urea Nitrogen 34 H Creatinine 2.07 H Est Glomerular 34 L Filtrat Rate mL/min Glucose Level 156 Hemoglobin A1c 6.4 H Calcium Level 8.8 Iron Level 20 L Total Iron Binding 212 L Capacity Percent Iron 9 L Saturation Test 07/05/18 12:45 Bedside Glucose 216 Subjective 24 Hr Interval Summary Respiratory: no complaints Cardiovascular: no complaints Genitourinary: no complaints Musculoskeletal: bone/joint pain Exam/Review of Systems Exam Vitals Vital Signs Date Temp Pulse Resp B/P (MAP) Pulse Ox O2 O2 Flow FiO2 Time Delivery Rate 07/05/18 97.8 69 18 113/66 99 14:39 (82) 07/04/18 Room Air 08:00 Intake and Output 07/04/18 07/04/18 07/05/18 1515:00 23:00 07:00 IntakeIntake Total 50 ml 520 ml BalanceBalance 50 ml 520 ml Neck: supple Respiratory: clear to auscultation Cardiovascular: regular rate and rhythm Gastrointestinal: soft, bowel sounds (+) Extremities: edema (+) Skin: other (foot wound+) Results Results 24hrs Laboratory Tests Test 07/04/18 21:24 07/05/18 01:54 07/05/18 05:38 07/05/18 08:22 Bedside Glucose 243 H 191 158 White Blood Count 6.0 Red Blood Count 2.38 L Hemoglobin 7.7 L Hematocrit 22.2 L Mean Corpuscular 93.3 Volume Mean Corpuscular 32.4 Hemoglobin Mean Corpuscular 34.7 Hemoglobin Concent Red Cell 11.9 Distribution Width Platelet Count 154 Mean Platelet Volume 9.7 Immature 0.500 H Granulocytes % Neutrophils % 69.3 Lymphocytes % 20.8 Monocytes % 6.8 Eosinophils % 2.3 Basophils % 0.3 Nucleated Red Blood 0.0 Cells % Immature 0.030 Granulocytes # Neutrophils # 4.2 Lymphocytes # 1.3 Monocytes # 0.4 Eosinophils # 0.1 Basophils # 0.0 Nucleated Red Blood 0.0 Cells # Sodium Level 141 Potassium Level 4.4 Chloride Level 107 Carbon Dioxide Level 27 Anion Gap 7 Blood Urea Nitrogen 34 H Creatinine 2.07 H Est Glomerular 34 L Filtrat Rate mL/min Glucose Level 156 Hemoglobin A1c 6.4 H Calcium Level 8.8 Iron Level 20 L Total Iron Binding 212 L Capacity Percent Iron 9 L Saturation Test 07/05/18 12:45 Bedside Glucose 216 Medications Medication Current Medications Insulin Aspart (Novolog Insulin Pen) NOVOLOG *MODERATE* ALGORITHM WITH MEALS BEDTIME SC Last administered on 07/05/18at 17:17; Admin Dose 2 UNIT; Start 07/04/18 at 08:00 Acetaminophen/ Hydrocodone Bitart ([place] (5/325)) 1 tab Q4H PRN PO MODERATE PAIN LEVEL 4-6; Start 07/04/18 at 01:30 Enoxaparin Sodium (Lovenox) 40 mg DAILY SC Last administered on 07/05/18at 08:26; Admin Dose 40 MG; Start 07/04/18 at 09:00 Pantoprazole (Protonix Tab) 40 mg DAILY@06 PO Last administered on 07/05/18at 05:46; Admin Dose 40 MG; Start 07/04/18 at 06:00 Acetaminophen (Tylenol Tab) 650 mg Q6H PRN PO MILD PAIN(1-3)OR ELEVATED TEMP Last administered on 07/04/18at 21:28; Admin Dose 650 MG; Start 07/04/18 at 01:30 Clonidine (Catapres) 0.1 mg TID PO Last administered on 07/05/18at 12:52; Admin Dose 0.1 MG; Start 07/04/18 at 09:00 Clonidine (Catapres) 0.1 mg Q6H PRN PO ELEVATED BLOOD PRESSURE Last administered on 07/04/18at 01:47; Admin Dose 0.1 MG; Start 07/04/18 at 01:30 Ceftriaxone Sodium 50 ml @ 100 mls/hr Q24H IVPB Last administered on 07/05/18at 10:01; Admin Dose 100 MLS/HR; Start 07/04/18 at 09:00 Miscellaneous Information 1 ea NOTE XX ; Start 07/04/18 at 02:00 Glucose (Glutose) 15 gm Q15M PRN PO DECREASED GLUCOSE; Start 07/04/18 at 02:00 Glucose (Glutose) 22.5 gm Q15M PRN PO DECREASED GLUCOSE; Start 07/04/18 at 02:00 Dextrose (D50w Syringe) 25 ml Q15M PRN IV DECREASED GLUCOSE; Start 07/04/18 at 02:00 Dextrose (D50w Syringe) 50 ml Q15M PRN IV DECREASED GLUCOSE; Start 07/04/18 at 02:00 Glucagon (Glucagen) 1 mg Q15M PRN IM DECREASED GLUCOSE; Start 07/04/18 at 02:00 Glucose (Glutose) 15 gm Q15M PRN BUCCAL DECREASED GLUCOSE; Start 07/04/18 at 02:00 Bisacodyl (Dulcolax) 10 mg BID PRN PO CONSTIPATION; Start 07/04/18 at 01:30 Miscellaneous Information [facility] This patient mora... PRN PRN XX WOUND CARE; Start 07/04/18 at 02:00 Vancomycin HCl (Vanco Iv Per Pharmacy) VANCOMYCIN PER PHARMACY PER PROTOCOL XX ; Start 07/04/18 at 14:00 Pentoxifylline (Trental) 400 mg TID PO Last administered on 07/05/18at 12:52; Admin Dose 400 MG; Start 07/04/18 at 21:00 Sodium Chloride 1,000 ml @ 40 mls/hr Q24H IV Last administered on 07/04/18at 14:28; Admin Dose 40 MLS/HR; Start 07/04/18 at 14:00 Linagliptin (Tradjenta) 5 mg DAILY PO Last administered on 07/05/18at 08:24; Admin Dose 5 MG; Start 07/04/18 at 14:00 Ferric Sodium Gluconate Complex 125 mg/Sodium Chloride 110 ml @ 110 mls/hr DAILY@1300 IVPB Last administered on 07/05/18at 12:46; Admin Dose 110 MLS/HR; Start 07/05/18 at 13:00; Stop 07/09/18 at 13:59 Vancomycin HCl 250 ml @ 125 mls/hr Q24H IVPB ; Start 07/05/18 at 18:00 KEMAL AZAR MD Jul 05, 2018 17:31
[2018-07-05] MEDS: SOD CHLORIDE 0.9% 1,000 ML IV SCH (19:00)
[2018-07-05 20:05] VITALS: BP 143/81; PULSE 73; RESP 19
[2018-07-05] MEDS: VANCOMYCIN 1 GM 250 ML IVPB SCH (21:46)
[2018-07-06 02:41] VITALS: BP 156/88; PULSE 75; RESP 20
[2018-07-06] MEDS: PANTOPRAZOLE (EC) 40 MG TAB PO SCH (05:13)
[2018-07-06 07:20] VITALS: BP 167/83; PULSE 80; RESP 16
[2018-07-06] MEDS: PENTOXIFYLLINE (SR) 400 MG TAB PO SCH ×3 (08:21→20:42)
[2018-07-06] MEDS: LINAGLIPTIN 5 MG TABLET PO SCH (08:21)
[2018-07-06] MEDS: INSULIN ASPART [NOVOLOG] 3 ML PEN SC SCH ×4 (08:25→20:44)
[2018-07-06] MEDS: ENOXAPARIN 40 MG/0.4 ML SYG SC SCH (08:25)
[2018-07-06] MEDS: CEFTRIAXONE 1 GM/50 ML (PMX) 50 ML IVPB SCH (09:04)
[2018-07-06] MEDS: SOD FERRIC GLUC COMPLX 125 MG in SOD CHLORIDE 0.9% 100 ML IVPB SCH (13:42)
[2018-07-06] MEDS: SOD CHLORIDE 0.9% 1,000 ML IV SCH ×2 (14:00→18:48)
--- NOTE | 2018-07-06 14:30 | PN ---
Date/Time of Note Date/Time of Note DATE: 07/06/18 TIME: 14:25 Assessment/Plan VTE Prophylaxis Risk score (from Ns)>0 risk: 2 SCD applied (from Ns): No SCD contraindicated: low risk/ambulating Pharmacological prophylaxis: NA/contraindicated Pharm contraindication: low risk/ambulating Lines/Catheters IV C[facility]ter Type (from [facility]): Peripheral IV Urinary Cath still in place: No Assessment/Plan Hospital Course Hospital Course 1. Left foot cellulitis. Discoloration of 2 and 3 toes. S/p amputation of the left fourth digit and transmetatarsal amputation of the fifth digit. 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 On Xray soft tissue swelling. Vascular calcification consistent with atherosclerotic disease. 2. Anemia 3. Overweight 4. DANIELLE, creatinine 1.97. Pt creatinine was 1.73 in [facility] February 2018 and then return to normal. Peaked due to its and is 1.69 today 5. DM type II with diabetic neuropathy 6. Hypertension 7. Right foot sole wound 8. Peripheral vascular disease. On Duplex US 09/2017 Monophasic wave forms in bilateral posterior tibial arteries and dorsalis pedis arteries consistent with a significant bilateral infrapopliteal stenosis. Plan - MRI +Findings consistent with osteomyelitis at the fifth metatarsal amputation site. Findings consistent with osteomyelitis of the third toe distal, and probably middle and proximal phalanges. Findings likely representing osteomyelitis of the second toe distal phalanx. -Dr. Betancur was called for podiatry -In case patient needs an angiogram patient is high risk of contrast nephropathy given the creatinine is 1.69, peaked up to 2 yesterday, in case vascular really wants to go for angiogram will, talk to the patient and explained the risk of benefits of contrast nephropathy -Continue with Vanco and Rocephin -Continue with pentoxifylline -cw with IV iron - cw NS - GI prophylaxsis Result Diagram: 07/05/18 0538 07/06/18 0707 Results 24hrs Laboratory Tests Test 07/05/18 17:14 07/05/18 21:26 07/06/18 07:07 07/06/18 08:12 Bedside Glucose 164 160 163 Sodium Level 142 Potassium Level 4.2 Chloride Level 108 Carbon Dioxide Level 24 Anion Gap 10 Blood Urea Nitrogen 26 H Creatinine 1.69 H Est Glomerular 43 L Filtrat Rate mL/min Glucose Level 162 Calcium Level 8.9 Test 07/06/18 12:35 Bedside Glucose 206 Subjective 24 Hr Interval Summary Free Text/Dictation Pictures reviwed Spoke to amputation prevention currently a clinic and Dr. Betancur was called Exam/Review of Systems Exam Vitals Vital Signs Date Temp Pulse Resp B/P (MAP) Pulse Ox O2 O2 Flow FiO2 Time Delivery Rate 07/06/18 98.8 80 16 167/83 97 Room Air 07:20 (111) Intake and Output 07/05/18 07/05/18 07/06/18 1414:59 22:59 06:59 IntakeIntake Total 800 ml 650 ml BalanceBalance 800 ml 650 ml Exam GENERAL: Well-nourished, well-developed 52-year-old man who is awake, in no distress. HEENT: Head atraumatic, normocephalic. NECK: Supple. CHEST: Rise symmetrical. Breath sounds clear. HEART: S1, S2. ABDOMEN: Soft, bowel tones present. EXTREMITIES: Left foot erythema, edema and pressure sores on his third, second toe, right foot with plantar necrotic skin breakdown. Results Results 24hrs Laboratory Tests Test 07/05/18 17:14 07/05/18 21:26 07/06/18 07:07 07/06/18 08:12 Bedside Glucose 164 160 163 Sodium Level 142 Potassium Level 4.2 Chloride Level 108 Carbon Dioxide Level 24 Anion Gap 10 Blood Urea Nitrogen 26 H Creatinine 1.69 H Est Glomerular 43 L Filtrat Rate mL/min Glucose Level 162 Calcium Level 8.9 Test 07/06/18 12:35 Bedside Glucose 206 Medications Medication Current Medications Insulin Aspart (Novolog Insulin Pen) NOVOLOG *MODERATE* ALGORITHM WITH MEALS BEDTIME SC Last administered on 07/06/18at 12:38; Admin Dose 4 UNIT; Start 07/04/18 at 08:00 Acetaminophen/ Hydrocodone Bitart ([place] (5/325)) 1 tab Q4H PRN PO MODERATE PAIN LEVEL 4-6; Start 07/04/18 at 01:30 Enoxaparin Sodium (Lovenox) 40 mg DAILY SC Last administered on 07/06/18at 08:25; Admin Dose 40 MG; Start 07/04/18 at 09:00 Pantoprazole (Protonix Tab) 40 mg DAILY@06 PO Last administered on 07/06/18at 05:13; Admin Dose 40 MG; Start 07/04/18 at 06:00 Acetaminophen (Tylenol Tab) 650 mg Q6H PRN PO MILD PAIN(1-3)OR ELEVATED TEMP Last administered on 07/04/18at 21:28; Admin Dose 650 MG; Start 07/04/18 at 01:30 Clonidine (Catapres) 0.1 mg TID PO Last administered on 07/06/18at 12:11; Admin Dose 0.1 MG; Start 07/04/18 at 09:00 Clonidine (Catapres) 0.1 mg Q6H PRN PO ELEVATED BLOOD PRESSURE Last administered on 07/04/18at 01:47; Admin Dose 0.1 MG; Start 07/04/18 at 01:30 Ceftriaxone Sodium 50 ml @ 100 mls/hr Q24H IVPB Last administered on 07/06/18at 09:04; Admin Dose 100 MLS/HR; Start 07/04/18 at 09:00 Miscellaneous Information 1 ea NOTE XX ; Start 07/04/18 at 02:00 Glucose (Glutose) 15 gm Q15M PRN PO DECREASED GLUCOSE; Start 07/04/18 at 02:00 Glucose (Glutose) 22.5 gm Q15M PRN PO DECREASED GLUCOSE; Start 07/04/18 at 02:00 Dextrose (D50w Syringe) 25 ml Q15M PRN IV DECREASED GLUCOSE; Start 07/04/18 at 02:00 Dextrose (D50w Syringe) 50 ml Q15M PRN IV DECREASED GLUCOSE; Start 07/04/18 at 02:00 Glucagon (Glucagen) 1 mg Q15M PRN IM DECREASED GLUCOSE; Start 07/04/18 at 02:00 Glucose (Glutose) 15 gm Q15M PRN BUCCAL DECREASED GLUCOSE; Start 07/04/18 at 02:00 Bisacodyl (Dulcolax) 10 mg BID PRN PO CONSTIPATION; Start 07/04/18 at 01:30 Miscellaneous Information (Pending [facility] Order For Wound Care) This patient mora... PRN PRN XX WOUND CARE; Start 07/04/18 at 02:00 Vancomycin HCl (Vanco Iv Per Pharmacy) VANCOMYCIN PER PHARMACY PER PROTOCOL XX ; Start 07/04/18 at 14:00 Pentoxifylline (Trental) 400 mg TID PO Last administered on 07/06/18at 12:10; Admin Dose 400 MG; Start 07/04/18 at 21:00 Sodium Chloride 1,000 ml @ 40 mls/hr Q24H IV Last administered on 07/04/18at 14:28; Admin Dose 40 MLS/HR; Start 07/04/18 at 14:00 Linagliptin (Tradjenta) 5 mg DAILY PO Last administered on 07/06/18at 08:21; Admin Dose 5 MG; Start 07/04/18 at 14:00 Ferric Sodium Gluconate Complex 125 mg/Sodium Chloride 110 ml @ 110 mls/hr DAILY@1300 IVPB Last administered on 07/06/18at 13:42; Admin Dose 110 MLS/HR; Start 07/05/18 at 13:00; Stop 07/09/18 at 13:59 Vancomycin HCl 250 ml @ 125 mls/hr Q24H IVPB Last administered on 07/05/18at 21 :46; Admin Dose 125 MLS/HR; Start 07/05/18 at 18:00 Miscellaneous Information (*Rx Drug Level Order Reminder*) ONCE ONCE XX ; Start 07/07/18 at 21:00; Stop 07/07/18 at 21:01 GINA SUTTON MD Jul 06, 2018 14:30
[2018-07-06 14:43] VITALS: BP 161/85; PULSE 76; RESP 16
--- NOTE | 2018-07-06 19:10 | PN ---
Date/Time of Note Date/Time of Note DATE: 07/06/18 TIME: 19:09 Assessment/Plan Lines/Catheters IV Catheter Type (from Nrsg): Peripheral IV Gibson in Place (from Nrsg): No Assessment/Plan Assessment/Plan Peripheral vascular disease Pancreas failure None to proceed with angiogram with possible angioplasty when renal status stabilizes Creatinine is come down from 1.9 to1.6 Subjective 24 Hr Interval Summary Constitutional: improved Pain Control: mild Exam/Review of Systems Vital Signs Vitals Vital Signs Date Temp Pulse Resp B/P (MAP) Pulse Ox O2 O2 Flow FiO2 Time Delivery Rate 07/06/18 98.1 76 16 161/85 99 Room Air 14:43 (110) Intake and Output 07/05/18 07/05/18 07/06/18 1515:00 23:00 07:00 IntakeIntake Total 800 ml 650 ml BalanceBalance 800 ml 650 ml Exam Eyes: nl conjunctiva, EOMI, nl lids, nl sclera ENMT: nl external ears & nose, nl lips & teeth, nl nasal mucosa & septum, mucosa pink and moist Neck: supple, non-tender Respiratory: clear to auscultation, normal air movement Cardiovascular: regular rate and rhythm, nl pulses Gastrointestinal: soft, nl liver, spleen, non-tender Musculoskeletal: nl extremities to inspection, nl gait and stance Additional Comments Bilateral heel ulcerations noted Results Result Diagram: 07/05/18 0538 07/06/18 0707 DONTRELL RODRIGUEZ MD Jul 06, 2018 19:10
[2018-07-06 19:33] VITALS: BP 142/82; PULSE 72; RESP 18
--- NOTE | 2018-07-06 19:59 | CONS ---
Assessment/Plan Assessment/Plan Hospital Course (Demo Recall) Alert feels good no fevers overnight vital signs stable. Left foot culture growing staph aureus preliminary Antimicrobials: Mita Bernard PHYSICAL EXAMINATION: GENERAL: Well-nourished, well-developed 52-year-old man who is awake, in no distress. HEENT: Head atraumatic, normocephalic. NECK: Supple. CHEST: Rise symmetrical. Breath sounds clear. HEART: S1, S2. ABDOMEN: Soft, bowel tones present. EXTREMITIES: Left foot erythema, edema and pressure sores on his third, second toe, right foot with plantar necrotic skin breakdown. Assessment: 1. Left foot cellulitis 2. Diabetes 3. Diabetic neuropathy 4. Hypertension 5. Peripheral vascular disease Plan: Patient remains stable, he is being seen by vascular surgery plan for angiogram and possible angioplasty, await for final cultures Consultation Date/Type/Reason Admit Date/Time Jul 03, 2018 at 22:10 Initial Consult Date 07/04/18 Type of Consult id Date/Time of Note DATE: 07/06/18 TIME: 19:57 Exam/Review of Systems Exam Vitals Vital Signs Date Temp Pulse Resp B/P (MAP) Pulse Ox O2 O2 Flow FiO2 Time Delivery Rate 07/06/18 98.7 72 18 142/82 97 19:33 (102) 07/06/18 Room Air 14:43 Intake and Output 07/05/18 07/05/18 07/06/18 1515:00 23:00 07:00 IntakeIntake Total 800 ml 650 ml BalanceBalance 800 ml 650 ml Results Result Diagram: 07/05/18 0538 07/06/18 0707 Results 24hrs Laboratory Tests Test 07/05/18 21:26 07/06/18 07:07 07/06/18 08:12 07/06/18 12:35 Bedside Glucose 160 163 206 Sodium Level 142 Potassium Level 4.2 Chloride Level 108 Carbon Dioxide Level 24 Anion Gap 10 Blood Urea Nitrogen 26 H Creatinine 1.69 H Est Glomerular 43 L Filtrat Rate mL/min Glucose Level 162 Calcium Level 8.9 Test 07/06/18 17:35 Bedside Glucose 197 Medications Medication Current Medications Insulin Aspart (Novolog Insulin Pen) NOVOLOG *MODERATE* ALGORITHM WITH MEALS BEDTIME SC Last administered on 07/06/18at 17:38; Admin Dose 4 UNIT; Start 07/04/18 at 08:00 Acetaminophen/ Hydrocodone Bitart ([place] (5/325)) 1 tab Q4H PRN PO MODERATE PAIN LEVEL 4-6; Start 07/04/18 at 01:30 Enoxaparin Sodium (Lovenox) 40 mg DAILY SC Last administered on 07/06/18at 08:25; Admin Dose 40 MG; Start 07/04/18 at 09:00 Pantoprazole (Protonix Tab) 40 mg DAILY@06 PO Last administered on 07/06/18at 05:13; Admin Dose 40 MG; Start 07/04/18 at 06:00 Acetaminophen (Tylenol Tab) 650 mg Q6H PRN PO MILD PAIN(1-3)OR ELEVATED TEMP Last administered on 07/04/18at 21:28; Admin Dose 650 MG; Start 07/04/18 at 01:30 Clonidine (Catapres) 0.1 mg TID PO Last administered on 07/06/18at 12:11; Admin Dose 0.1 MG; Start 07/04/18 at 09:00 Clonidine (Catapres) 0.1 mg Q6H PRN PO ELEVATED BLOOD PRESSURE Last administered on 07/04/18at 01:47; Admin Dose 0.1 MG; Start 07/04/18 at 01:30 Ceftriaxone Sodium 50 ml @ 100 mls/hr Q24H IVPB Last administered on 07/06/18at 09:04; Admin Dose 100 MLS/HR; Start 07/04/18 at 09:00 Miscellaneous Information 1 ea NOTE XX ; Start 07/04/18 at 02:00 Glucose (Glutose) 15 gm Q15M PRN PO DECREASED GLUCOSE; Start 07/04/18 at 02:00 Glucose (Glutose) 22.5 gm Q15M PRN PO DECREASED GLUCOSE; Start 07/04/18 at 02:00 Dextrose (D50w Syringe) 25 ml Q15M PRN IV DECREASED GLUCOSE; Start 07/04/18 at 02:00 Dextrose (D50w Syringe) 50 ml Q15M PRN IV DECREASED GLUCOSE; Start 07/04/18 at 02:00 Glucagon (Glucagen) 1 mg Q15M PRN IM DECREASED GLUCOSE; Start 07/04/18 at 02:00 Glucose (Glutose) 15 gm Q15M PRN BUCCAL DECREASED GLUCOSE; Start 07/04/18 at 02:00 Bisacodyl (Dulcolax) 10 mg BID PRN PO CONSTIPATION; Start 07/04/18 at 01:30 Miscellaneous Information (Pending Santyl Order For Wound Care) This patient mora... PRN PRN XX WOUND CARE; Start 07/04/18 at 02:00 Vancomycin HCl (Vanco Iv Per Pharmacy) VANCOMYCIN PER PHARMACY PER PROTOCOL XX ; Start 07/04/18 at 14:00 Pentoxifylline (Trental) 400 mg TID PO Last administered on 07/06/18at 12:10; Admin Dose 400 MG; Start 07/04/18 at 21:00 Sodium Chloride 1,000 ml @ 40 mls/hr Q24H IV Last administered on 07/06/18at 18:48; Admin Dose 40 MLS/HR; Start 07/04/18 at 14:00 Linagliptin (Tradjenta) 5 mg DAILY PO Last administered on 07/06/18at 08:21; Admin Dose 5 MG; Start 07/04/18 at 14:00 Ferric Sodium Gluconate Complex 125 mg/Sodium Chloride 110 ml @ 110 mls/hr DAILY@1300 IVPB Last administered on 07/06/18at 13:42; Admin Dose 110 MLS/HR; Start 07/05/18 at 13:00; Stop 07/09/18 at 13:59 Vancomycin HCl 250 ml @ 125 mls/hr Q24H IVPB Last administered on 07/05/18at 21:46; Admin Dose 125 MLS/HR; Start 07/05/18 at 18:00 Miscellaneous Information (*Rx Drug Level Order Reminder*) ONCE ONCE XX ; Start 07/07/18 at 21:00; Stop 07/07/18 at 21:01 ROXANNA SOMERS NP Jul 06, 2018 19:59
--- NOTE | 2018-07-06 21:05 | CONS ---
Assessment/Plan Assessment/Plan Problems: (1) Postop check (2) Anemia Status: Acute Qualifiers: Qualified Codes: D64.9 - Anemia, unspecified (3) Cellulitis of foot Status: Acute (4) Osteomyelitis Status: Acute Qualifiers: Qualified Codes: M86.9 - Osteomyelitis, unspecified (5) Open wound of left foot Qualifiers: Qualified Codes: S91.302A - Unspecified open wound, left foot, initial encounter (6) Gangrene of right foot Status: Acute (7) Diabetes, polyneuropathy (8) Peripheral vascular disease (9) Gangrene of left foot Assessment/Plan (Daily) Patient's vascular supply supply is not adequate and will require full evaluation by vascular surgery. Perhaps he may require angiography to determine extent of disease and possible stenting. Once the arterial supply is evaluated, I will evaluate his condition for possible surgical management which may include amputation of the left third toe and surgical debridement of the right foot. He may continue to deteriorate in the lower extremities secondary to significant peripheral vascular disease. Patient will be followed in house. Consultation Date/Type/Reason Admit Date/Time Jul 03, 2018 at 22:10 Date of Consultation: Jul 06, 2018 Type of Consult Foot and ankle surgery Reason for Consultation Evaluation of bilateral feet Date/Time of Note DATE: 07/06/18 TIME: 21:05 Hx of Present Illness Thank you very much for your kind consultation. She very well know this is a pleasant 52-year-old male patient with multiple medical problems including diabetes mellitus, peripheral vascular disease, hypertension who presented to the emergency room with multiple foot ulcerations. He is status post left fifth and fourth toe amputations. I was consulted for evaluation of his feet. Apparently his left third toe has become swollen and dark. Patient reports pain. He also complains of open wounds on his right foot. Denies fever and chills he reports no chest pain or shortness of breath. Constitutional: no complaints Eyes: no complaints ENT: no complaints Past Medical History As per HPI Medical History: diabetes, hypertension Home Meds Active Scripts Insulin Aspart* (Novolog Insulin Pen*) 100 Unit/Ml Soln, 0 UNIT SC AC MEALS AND BEDTIME for 30 Days Prov:TEODORO RIDER 07/19/18 Clonidine Hcl* (Catapres*) 0.2 Mg Tablet, 0.2 MG PO TID for 30 Days, TAB Prov:TEODORO RIDER 07/19/18 Amlodipine Besylate* (Amlodipine Besylate*) 5 Mg Tablet, 10 MG PO DAILY for 30 Days, TAB Prov:TEODORO RIEDR 07/19/18 Pentoxifylline* (Pentoxifylline*) 400 Mg Tablet.sa, 400 MG PO TID for 30 Days Prov:TEODORO RIDER 07/19/18 Ferrous Sulfate* (Ferrous Sulfate*) 325 Mg Tabec, 325 MG PO DAILY for 30 Days, TAB Prov:TEODORO RIDER 07/19/18 Ciprofloxacin Hcl* (Ciprofloxacin Hcl*) 500 Mg Tablet, 500 MG PO BID@18 for 42 Days, TAB Prov:TEODORO RIDER 07/19/18 Linagliptin (TRADJENTA) 5 Mg Tablet, 5 MG PO DAILY for 30 Days, TAB Prov:GINA SUTTON MD 03/18/18 Medications Current Medications Insulin Aspart (Novolog Insulin Pen) NOVOLOG *MODERATE* ALGORITHM WITH MEALS BEDTIME SC Last administered on 07/06/18at 20:44; Admin Dose 1 UNIT; Start 07/04/18 at 08:00 Acetaminophen/ Hydrocodone Bitart (Tonica (5/325)) 1 tab Q4H PRN PO MODERATE PAIN LEVEL 4-6; Start 07/04/18 at 01:30 Enoxaparin Sodium (Lovenox) 40 mg DAILY SC Last administered on 07/06/18at 08:25; Admin Dose 40 MG; Start 07/04/18 at 09:00 Pantoprazole (Protonix Tab) 40 mg DAILY@06 PO Last administered on 07/06/18at 05:13; Admin Dose 40 MG; Start 07/04/18 at 06:00 Acetaminophen (Tylenol Tab) 650 mg Q6H PRN PO MILD PAIN(1-3)OR ELEVATED TEMP Last administered on 07/04/18at 21:28; Admin Dose 650 MG; Start 07/04/18 at 01:30 Clonidine (Catapres) 0.1 mg TID PO Last administered on 07/06/18at 20:43; Admin Dose 0.1 MG; Start 07/04/18 at 09:00 Clonidine (Catapres) 0.1 mg Q6H PRN PO ELEVATED BLOOD PRESSURE Last administered on 07/04/18at 01:47; Admin Dose 0.1 MG; Start 07/04/18 at 01:30 Ceftriaxone Sodium 50 ml @ 100 mls/hr Q24H IVPB Last administered on 07/06/18at 09:04; Admin Dose 100 MLS/HR; Start 07/04/18 at 09:00 Miscellaneous Information 1 ea NOTE XX ; Start 07/04/18 at 02:00 Glucose (Glutose) 15 gm Q15M PRN PO DECREASED GLUCOSE; Start 07/04/18 at 02:00 Glucose (Glutose) 22.5 gm Q15M PRN PO DECREASED GLUCOSE; Start 07/04/18 at 02:00 Dextrose (D50w Syringe) 25 ml Q15M PRN IV DECREASED GLUCOSE; Start 07/04/18 at 02:00 Dextrose (D50w Syringe) 50 ml Q15M PRN IV DECREASED GLUCOSE; Start 07/04/18 at 02:00 Glucagon (Glucagen) 1 mg Q15M PRN IM DECREASED GLUCOSE; Start 07/04/18 at 02:00 Glucose (Glutose) 15 gm Q15M PRN BUCCAL DECREASED GLUCOSE; Start 07/04/18 at 02:00 Bisacodyl (Dulcolax) 10 mg BID PRN PO CONSTIPATION; Start 07/04/18 at 01:30 Miscellaneous Information (Pending [facility] Order For Wound Care) This patient mora... PRN PRN XX WOUND CARE; Start 07/04/18 at 02:00 Vancomycin HCl (Vanco Iv Per Pharmacy) VANCOMYCIN PER PHARMACY PER PROTOCOL XX ; Start 07/04/18 at 14:00 Pentoxifylline (Trental) 400 mg TID PO Last administered on 07/06/18at 20:42; Admin Dose 400 MG; Start 07/04/18 at 21:00 Sodium Chloride 1,000 ml @ 40 mls/hr Q24H IV Last administered on 07/06/18at 18:48; Admin Dose 40 MLS/HR; Start 07/04/18 at 14:00 Linagliptin (Tradjenta) 5 mg DAILY PO Last administered on 07/06/18at 08:21; Admin Dose 5 MG; Start 07/04/18 at 14:00 Ferric Sodium Gluconate Complex 125 mg/Sodium Chloride 110 ml @ 110 mls/hr DAILY@1300 IVPB Last administered on 07/06/18at 13:42; Admin Dose 110 MLS/HR; Start 07/05/18 at 13:00; Stop 07/09/18 at 13:59 Vancomycin HCl 250 ml @ 125 mls/hr Q24H IVPB Last administered on 07/05/18at 21:46; Admin Dose 125 MLS/HR; Start 07/05/18 at 18:00 Miscellaneous Information (*Rx Drug Level Order Reminder*) ONCE ONCE XX ; Start 07/07/18 at 21:00; Stop 07/07/18 at 21:01 Allergies: Coded Allergies: No Known Allergy (Unverified , 07/04/18) Past Surgical History As per HPI Past Surgical Hx: other (Yes (L 4th AND 5th toe amputation)) Social History Alcohol Use: none Smoking Status: Never smoker Drug Use: none Exam/Review of Systems Exam Vitals Vital Signs Date Temp Pulse Resp B/P (MAP) Pulse Ox O2 O2 Flow FiO2 Time Delivery Rate 07/06/18 98.7 72 18 142/82 97 19:33 (102) 07/06/18 Room Air 14:43 Intake and Output 07/05/18 07/05/18 07/06/18 1515:00 23:00 07:00 IntakeIntake Total 800 ml 650 ml BalanceBalance 800 ml 650 ml Exam Patient is in no acute distress laying supine in bed. Status post left fourth and fifth toe amputations. Left third toe is contracted with distal gangrene. Upon squeezing of the distal aspect of the third toe on the left foot there is significant amount. Drainage along with malodor. Patient has ulcerations on the plantar aspect of the right foot mainly in the ball of the foot from first MPJ to fifth MPJ. Necrosis present. Overall there is significant increase in temperature gradient bilateral lower extremity with the right side worse than the left. Results Result Diagram: 07/05/18 0538 07/06/18 0707 Results 24hrs Laboratory Tests Test 07/05/18 21:26 07/06/18 07:07 07/06/18 08:12 07/06/18 12:35 Bedside Glucose 160 163 206 Sodium Level 142 Potassium Level 4.2 Chloride Level 108 Carbon Dioxide Level 24 Anion Gap 10 Blood Urea Nitrogen 26 H Creatinine 1.69 H Est Glomerular 43 L Filtrat Rate mL/min Glucose Level 162 Calcium Level 8.9 Test 07/06/18 17:35 07/06/18 20:41 Bedside Glucose 197 206 Medications Medication Current Medications Insulin Aspart (Novolog Insulin Pen) NOVOLOG *MODERATE* ALGORITHM WITH MEALS BEDTIME SC Last administered on 07/06/18at 20:44; Admin Dose 1 UNIT; Start 07/04/18 at 08:00 Acetaminophen/ Hydrocodone Bitart (Tonica (5/325)) 1 tab Q4H PRN PO MODERATE PAIN LEVEL 4-6; Start 07/04/18 at 01:30 Enoxaparin Sodium (Lovenox) 40 mg DAILY SC Last administered on 07/06/18at 08:25; Admin Dose 40 MG; Start 07/04/18 at 09:00 Pantoprazole (Protonix Tab) 40 mg DAILY@06 PO Last administered on 07/06/18at 05:13; Admin Dose 40 MG; Start 07/04/18 at 06:00 Acetaminophen (Tylenol Tab) 650 mg Q6H PRN PO MILD PAIN(1-3)OR ELEVATED TEMP Last administered on 07/04/18at 21:28; Admin Dose 650 MG; Start 07/04/18 at 01:30 Clonidine (Catapres) 0.1 mg TID PO Last administered on 07/06/18at 20:43; Admin Dose 0.1 MG; Start 07/04/18 at 09:00 Clonidine (Catapres) 0.1 mg Q6H PRN PO ELEVATED BLOOD PRESSURE Last administered on 07/04/18at 01:47; Admin Dose 0.1 MG; Start 07/04/18 at 01:30 Ceftriaxone Sodium 50 ml @ 100 mls/hr Q24H IVPB Last administered on 07/06/18at 09:04; Admin Dose 100 MLS/HR; Start 07/04/18 at 09:00 Miscellaneous Information 1 ea NOTE XX ; Start 07/04/18 at 02:00 Glucose (Glutose) 15 gm Q15M PRN PO DECREASED GLUCOSE; Start 07/04/18 at 02:00 Glucose (Glutose) 22.5 gm Q15M PRN PO DECREASED GLUCOSE; Start 07/04/18 at 02:00 Dextrose (D50w Syringe) 25 ml Q15M PRN IV DECREASED GLUCOSE; Start 07/04/18 at 02:00 Dextrose (D50w Syringe) 50 ml Q15M PRN IV DECREASED GLUCOSE; Start 07/04/18 at 02:00 Glucagon (Glucagen) 1 mg Q15M PRN IM DECREASED GLUCOSE; Start 07/04/18 at 02:00 Glucose (Glutose) 15 gm Q15M PRN BUCCAL DECREASED GLUCOSE; Start 07/04/18 at 02:00 Bisacodyl (Dulcolax) 10 mg BID PRN PO CONSTIPATION; Start 07/04/18 at 01:30 Miscellaneous Information (Pending [facility] Order For Wound Care) This patient mora... PRN PRN XX WOUND CARE; Start 07/04/18 at 02:00 Vancomycin HCl (Vanco Iv Per Pharmacy) VANCOMYCIN PER PHARMACY PER PROTOCOL XX ; Start 07/04/18 at 14:00 Pentoxifylline (Trental) 400 mg TID PO Last administered on 07/06/18at 20:42; Admin Dose 400 MG; Start 07/04/18 at 21:00 Sodium Chloride 1,000 ml @ 40 mls/hr Q24H IV Last administered on 07/06/18at 18:48; Admin Dose 40 MLS/HR; Start 07/04/18 at 14:00 Linagliptin (Tradjenta) 5 mg DAILY PO Last administered on 07/06/18at 08:21; Admin Dose 5 MG; Start 07/04/18 at 14:00 Ferric Sodium Gluconate Complex 125 mg/Sodium Chloride 110 ml @ 110 mls/hr DAILY@1300 IVPB Last administered on 07/06/18at 13:42; Admin Dose 110 MLS/HR; Start 07/05/18 at 13:00; Stop 07/09/18 at 13:59 Vancomycin HCl 250 ml @ 125 mls/hr Q24H IVPB Last administered on 07/05/18at 21:46; Admin Dose 125 MLS/HR; Start 07/05/18 at 18:00 Miscellaneous Information (*Rx Drug Level Order Reminder*) ONCE ONCE XX ; Start 07/07/18 at 21:00; Stop 07/07/18 at 21:01 JOSE A HIGUERA DPM Jul 06, 2018 21:05
[2018-07-06] MEDS: VANCOMYCIN 1 GM 250 ML IVPB SCH (21:32)
[2018-07-07 02:00] VITALS: BP 154/79; PULSE 69; RESP 18
[2018-07-07] MEDS: PANTOPRAZOLE (EC) 40 MG TAB PO SCH (05:46)
[2018-07-07 07:15] VITALS: BP 161/86; PULSE 71; RESP 20
[2018-07-07] MEDS: CEFTRIAXONE 1 GM/50 ML (PMX) 50 ML IVPB SCH (08:30)
[2018-07-07] MEDS: LINAGLIPTIN 5 MG TABLET PO SCH (08:31)
[2018-07-07] MEDS: INSULIN ASPART [NOVOLOG] 3 ML PEN SC SCH ×4 (08:32→21:19)
[2018-07-07] MEDS: ENOXAPARIN 40 MG/0.4 ML SYG SC SCH (08:32)
[2018-07-07] MEDS: PENTOXIFYLLINE (SR) 400 MG TAB PO SCH ×3 (08:33→21:17)
[2018-07-07] MEDS: SOD FERRIC GLUC COMPLX 125 MG in SOD CHLORIDE 0.9% 100 ML IVPB SCH (13:05)
--- NOTE | 2018-07-07 13:47 | CONS ---
Assessment/Plan Assessment/Plan Hospital Course (Demo Recall) No acute events, looks comfortable, no fevers Antimicrobials: Shadiao Domenichinathan Micro: wound cx + HÉCTOR PHYSICAL EXAMINATION: GENERAL: Well-nourished, well-developed 52-year-old man who is awake, in no distress. HEENT: Head atraumatic, normocephalic. NECK: Supple. CHEST: Rise symmetrical. Breath sounds clear. HEART: S1, S2. ABDOMEN: Soft, bowel tones present. EXTREMITIES: Left foot erythema, edema and pressure sores on his third, second toe, right foot with plantar necrotic skin breakdown. Assessment: 1. Left foot cellulitis 2. Diabetes 3. Diabetic neuropathy 4. Hypertension 5. Peripheral vascular disease Plan: Patient remains stable, per vascular surgery plan for angiogram and possible angioplasty, rowena Fan Consultation Date/Type/Reason Admit Date/Time Jul 03, 2018 at 22:10 Initial Consult Date 07/04/18 Type of Consult id Date/Time of Note DATE: 07/07/18 TIME: 13:45 Exam/Review of Systems Exam Vitals Vital Signs Date Temp Pulse Resp B/P (MAP) Pulse Ox O2 O2 Flow FiO2 Time Delivery Rate 07/07/18 98.0 71 20 161/86 97 Room Air 07:15 (111) Intake and Output 07/06/18 07/06/18 07/07/18 1515:00 23:00 07:00 IntakeIntake Total 560 ml 1200 ml 800 ml BalanceBalance 560 ml 1200 ml 800 ml Results Result Diagram: 07/05/18 0538 07/07/18 0533 Results 24hrs Laboratory Tests Test 07/06/18 17:35 07/06/18 20:41 07/07/18 05:33 07/07/18 08:14 Bedside Glucose 197 206 156 Sodium Level 142 Potassium Level 4.2 Chloride Level 108 Carbon Dioxide Level 26 Anion Gap 8 Blood Urea Nitrogen 22 H Creatinine 1.57 H Est Glomerular 46 L Filtrat Rate mL/min Glucose Level 170 Calcium Level 8.8 Test 07/07/18 12:46 Bedside Glucose 199 Medications Medication Current Medications Insulin Aspart (Novolog Insulin Pen) NOVOLOG *MODERATE* ALGORITHM WITH MEALS BEDTIME SC Last administered on 07/07/18at 12:51; Admin Dose 4 UNIT; Start 07/04/18 at 08:00 Acetaminophen/ Hydrocodone Bitart (Dawn (5/325)) 1 tab Q4H PRN PO MODERATE PAIN LEVEL 4-6; Start 07/04/18 at 01:30 Enoxaparin Sodium (Lovenox) 40 mg DAILY SC Last administered on 07/07/18at 08:32; Admin Dose 40 MG; Start 07/04/18 at 09:00 Pantoprazole (Protonix Tab) 40 mg DAILY@06 PO Last administered on 07/07/18at 05:46; Admin Dose 40 MG; Start 07/04/18 at 06:00 Acetaminophen (Tylenol Tab) 650 mg Q6H PRN PO MILD PAIN(1-3)OR ELEVATED TEMP Last administered on 07/04/18at 21:28; Admin Dose 650 MG; Start 07/04/18 at 01:30 Clonidine (Catapres) 0.1 mg TID PO Last administered on 07/07/18at 13:13; Admin Dose 0.1 MG; Start 07/04/18 at 09:00 Clonidine (Catapres) 0.1 mg Q6H PRN PO ELEVATED BLOOD PRESSURE Last administered on 07/04/18at 01:47; Admin Dose 0.1 MG; Start 07/04/18 at 01:30 Ceftriaxone Sodium 50 ml @ 100 mls/hr Q24H IVPB Last administered on 07/07/18 08:30; Admin Dose 100 MLS/HR; Start 07/04/18 at 09:00 Miscellaneous Information 1 ea NOTE XX ; Start 07/04/18 at 02:00 Glucose (Glutose) 15 gm Q15M PRN PO DECREASED GLUCOSE; Start 07/04/18 at 02:00 Glucose (Glutose) 22.5 gm Q15M PRN PO DECREASED GLUCOSE; Start 07/04/18 at 02:00 Dextrose (D50w Syringe) 25 ml Q15M PRN IV DECREASED GLUCOSE; Start 07/04/18 at 02:00 Dextrose (D50w Syringe) 50 ml Q15M PRN IV DECREASED GLUCOSE; Start 07/04/18 at 02:00 Glucagon (Glucagen) 1 mg Q15M PRN IM DECREASED GLUCOSE; Start 07/04/18 at 02:00 Glucose (Glutose) 15 gm Q15M PRN BUCCAL DECREASED GLUCOSE; Start 07/04/18 at 02:00 Bisacodyl (Dulcolax) 10 mg BID PRN PO CONSTIPATION; Start 07/04/18 at 01:30 Miscellaneous Information (Pending Santyl Order For Wound Care) This patient mora... PRN PRN XX WOUND CARE; Start 07/04/18 at 02:00 Vancomycin HCl (Vanco Iv Per Pharmacy) VANCOMYCIN PER PHARMACY PER PROTOCOL XX ; Start 07/04/18 at 14:00 Pentoxifylline (Trental) 400 mg TID PO Last administered on 07/07/18at 13:13; Admin Dose 400 MG; Start 07/04/18 at 21:00 Sodium Chloride 1,000 ml @ 100 mls/hr Q10H IV Last administered on 07/06/18at 18:48; Admin Dose 40 MLS/HR; Start 07/04/18 at 14:00 Linagliptin (Tradjenta) 5 mg DAILY PO Last administered on 07/07/18at 08:31; Admin Dose 5 MG; Start 07/04/18 at 14:00 Ferric Sodium Gluconate Complex 125 mg/Sodium Chloride 110 ml @ 110 mls/hr DAILY@1300 IVPB Last administered on 07/07/18at 13:05; Admin Dose 110 MLS/HR; Start 07/05/18 at 13:00; Stop 07/09/18 at 13:59 Vancomycin HCl 250 ml @ 125 mls/hr Q24H IVPB Last administered on 07/06/18at 21:32; Admin Dose 125 MLS/HR; Start 07/05/18 at 18:00 Miscellaneous Information (*Rx Drug Level Order Reminder*) ONCE ONCE XX ; Start 07/07/18 at 21:00; Stop 07/07/18 at 21:01 ROXANNA SOMERS NP Jul 07, 2018 13:47
[2018-07-07 14:20] VITALS: BP 159/87; PULSE 68; RESP 18
--- NOTE | 2018-07-07 14:37 | PN ---
Date/Time of Note Date/Time of Note DATE: 07/07/18 TIME: 14:35 Assessment/Plan VTE Prophylaxis Risk score (from Nsg)>0 risk: 1 SCD applied (from Ns): No SCD contraindicated: low risk/ambulating Pharmacological prophylaxis: NA/contraindicated Pharm contraindication: low risk/ambulating Lines/Catheters IV C[facility]ter Type (from [facility]): Peripheral IV Urinary Cath still in place: No Assessment/Plan Hospital Course Hospital Course 1. Left foot cellulitis. Discoloration of 2 and 3 toes. S/p amputation of the left fourth digit and transmetatarsal amputation of the fifth digit. 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 On Xray soft tissue swelling. Vascular calcification consistent with atherosclerotic disease. 2. Anemia 3. Overweight 4. DANIELLE, creatinine 1.97. Pt creatinine was 1.73 in [facility] February 2018 and then return to normal. Peaked due to its and is 1.69 today> 1.57 5. DM type II with diabetic neuropathy 6. Hypertension 7. Right foot sole wound 8. Peripheral vascular disease. On Duplex US 09/2017 Monophasic wave forms in bilateral posterior tibial arteries and dorsalis pedis arteries consistent with a significant bilateral infrapopliteal stenosis. Plan - MRI +Findings consistent with osteomyelitis at the fifth metatarsal amputation site. Findings consistent with osteomyelitis of the third toe distal, and probably middle and proximal phalanges. Findings likely representing osteomyelitis of the second toe distal phalanx. -Dr. Betancur was called for podiatry -Should wait for 1 or 2 days until the creatinine gets normalized and then proceed with angiogram -dc Vanco and cw Rocephin -Continue with pentoxifylline -cw with IV iron - cw NS -Norvasc for blood pressures - GI prophylaxsis Result Diagram: 07/05/18 0538 07/07/18 0533 Results 24hrs Laboratory Tests Test 07/06/18 17:35 07/06/18 20:41 07/07/18 05:33 07/07/18 08:14 Bedside Glucose 197 206 156 Sodium Level 142 Potassium Level 4.2 Chloride Level 108 Carbon Dioxide Level 26 Anion Gap 8 Blood Urea Nitrogen 22 H Creatinine 1.57 H Est Glomerular 46 L Filtrat Rate mL/min Glucose Level 170 Calcium Level 8.8 Test 07/07/18 12:46 Bedside Glucose 199 Subjective 24 Hr Interval Summary Free Text/Dictation Patient feels okay sbp high Creatinine down to 1.5 Exam/Review of Systems Exam Vitals Vital Signs Date Temp Pulse Resp B/P (MAP) Pulse Ox O2 O2 Flow FiO2 Time Delivery Rate 07/07/18 98.0 71 20 161/86 97 Room Air 07:15 (111) Intake and Output 07/06/18 07/06/18 07/07/18 1515:00 23:00 07:00 IntakeIntake Total 560 ml 1200 ml 800 ml BalanceBalance 560 ml 1200 ml 800 ml Exam GENERAL: Well-nourished, well-developed who is awake, in no distress. HEENT: Head atraumatic, normocephalic. NECK: Supple. CHEST: Rise symmetrical. Breath sounds clear. HEART: S1, S2. ABDOMEN: Soft, bowel tones present. EXTREMITIES: Left foot erythema, edema and pressure sores on his third, second toe, right foot with plantar necrotic skin breakdown. Results Results 24hrs Laboratory Tests Test 07/06/18 17:35 07/06/18 20:41 07/07/18 05:33 07/07/18 08:14 Bedside Glucose 197 206 156 Sodium Level 142 Potassium Level 4.2 Chloride Level 108 Carbon Dioxide Level 26 Anion Gap 8 Blood Urea Nitrogen 22 H Creatinine 1.57 H Est Glomerular 46 L Filtrat Rate mL/min Glucose Level 170 Calcium Level 8.8 Test 07/07/18 12:46 Bedside Glucose 199 Medications Medication Current Medications Insulin Aspart (Novolog Insulin Pen) NOVOLOG *MODERATE* ALGORITHM WITH MEALS BEDTIME SC Last administered on 07/07/18at 12:51; Admin Dose 4 UNIT; Start 07/04/18 at 08:00 Acetaminophen/ Hydrocodone Bitart ([place] (5/325)) 1 tab Q4H PRN PO MODERATE PA IN LEVEL 4-6; Start 07/04/18 at 01:30 Enoxaparin Sodium (Lovenox) 40 mg DAILY SC Last administered on 07/07/18at 08:32; Admin Dose 40 MG; Start 07/04/18 at 09:00 Pantoprazole (Protonix Tab) 40 mg DAILY@06 PO Last administered on 07/07/18at 05:46; Admin Dose 40 MG; Start 07/04/18 at 06:00 Acetaminophen (Tylenol Tab) 650 mg Q6H PRN PO MILD PAIN(1-3)OR ELEVATED TEMP Last administered on 07/04/18 21:28; Admin Dose 650 MG; Start 07/04/18 at 01:30 Clonidine (Catapres) 0.1 mg TID PO Last administered on 07/07/18 13:13; Admin Dose 0.1 MG; Start 07/04/18 at 09:00 Clonidine (Catapres) 0.1 mg Q6H PRN PO ELEVATED BLOOD PRESSURE Last administered on 07/04/18at 01:47; Admin Dose 0.1 MG; Start 07/04/18 at 01:30 Ceftriaxone Sodium 50 ml @ 100 mls/hr Q24H IVPB Last administered on 07/07/18 08:30; Admin Dose 100 MLS/HR; Start 07/04/18 at 09:00 Miscellaneous Information 1 ea NOTE XX ; Start 07/04/18 at 02:00 Glucose (Glutose) 15 gm Q15M PRN PO DECREASED GLUCOSE; Start 07/04/18 at 02:00 Glucose (Glutose) 22.5 gm Q15M PRN PO DECREASED GLUCOSE; Start 07/04/18 at 02:00 Dextrose (D50w Syringe) 25 ml Q15M PRN IV DECREASED GLUCOSE; Start 07/04/18 at 02:00 Dextrose (D50w Syringe) 50 ml Q15M PRN IV DECREASED GLUCOSE; Start 07/04/18 at 02:00 Glucagon (Glucagen) 1 mg Q15M PRN IM DECREASED GLUCOSE; Start 07/04/18 at 02:00 Glucose (Glutose) 15 gm Q15M PRN BUCCAL DECREASED GLUCOSE; Start 07/04/18 at 02:00 Bisacodyl (Dulcolax) 10 mg BID PRN PO CONSTIPATION; Start 07/04/18 at 01:30 Miscellaneous Information (Pending [facility] Order For Wound Care) This patient mora... PRN PRN XX WOUND CARE; Start 07/04/18 at 02:00 Pentoxifylline (Trental) 400 mg TID PO Last administered on 07/07/18 13:13; Admin Dose 400 MG; Start 07/04/18 at 21:00 Sodium Chloride 1,000 ml @ 100 mls/hr Q10H IV Last administered on 07/06/18at 18:48; Admin Dose 40 MLS/HR; Start 07/04/18 at 14:00 Linagliptin (Tradjenta) 5 mg DAILY PO Last administered on 07/07/18at 08:31; Admin Dose 5 MG; Start 07/04/18 at 14:00 Ferric Sodium Gluconate Complex 125 mg/Sodium Chloride 110 ml @ 110 mls/hr DAILY@1300 IVPB Last administered on 07/07/18at 13:05; Admin Dose 110 MLS/HR; Start 07/05/18 at 13:00; Stop 07/09/18 at 13:59 GINA SUTTON MD Jul 07, 2018 14:37
--- NOTE | 2018-07-07 15:13 | PN ---
Date/Time of Note Date/Time of Note DATE: 07/07/18 TIME: 15:12 Assessment/Plan Lines/Catheters IV Catheter Type (from Nrsg): Peripheral IV Gibson in Place (from Nrsg): No Assessment/Plan Assessment/Plan Lower extremity peripheral vascular disease Lateral heel ulcers Renal failure Cr 1.57 Plan for angiogram when cleared by nephrology Subjective 24 Hr Interval Summary Constitutional: improved Pain Control: mild Exam/Review of Systems Vital Signs Vitals Vital Signs Date Temp Pulse Resp B/P (MAP) Pulse Ox O2 O2 Flow FiO2 Time Delivery Rate 07/07/18 98.0 71 20 161/86 97 Room Air 07:15 (111) Intake and Output 07/06/18 07/06/18 07/07/18 1515:00 23:00 07:00 IntakeIntake Total 560 ml 1200 ml 800 ml BalanceBalance 560 ml 1200 ml 800 ml Exam Eyes: nl conjunctiva, EOMI, nl lids, nl sclera ENMT: nl external ears & nose, nl lips & teeth, nl nasal mucosa & septum, mucosa pink and moist Neck: supple, non-tender Respiratory: clear to auscultation, normal air movement Cardiovascular: regular rate and rhythm, nl pulses Gastrointestinal: soft, nl liver, spleen, non-tender Musculoskeletal: nl extremities to inspection, nl gait and stance Results Result Diagram: 07/05/18 0538 07/07/18 0533 DONTRELL RODRIGUEZ MD Jul 07, 2018 15:13
[2018-07-07] MEDS: AMLODIPINE 5 MG TAB PO SCH ×2 (17:31→21:16)
[2018-07-07] MEDS: SOD CHLORIDE 0.9% 1,000 ML IV SCH (17:36)
[2018-07-07 20:27] VITALS: BP 141/82; PULSE 72; RESP 18
[2018-07-08 01:55] VITALS: BP 132/77; PULSE 73; RESP 18
[2018-07-08] MEDS: SOD CHLORIDE 0.9% 1,000 ML IV SCH ×3 (02:49→20:00)
[2018-07-08] MEDS: PANTOPRAZOLE (EC) 40 MG TAB PO SCH (05:59)
[2018-07-08 08:05] VITALS: BP 129/73; PULSE 74; RESP 18
[2018-07-08] MEDS: LINAGLIPTIN 5 MG TABLET PO SCH (08:05)
[2018-07-08] MEDS: PENTOXIFYLLINE (SR) 400 MG TAB PO SCH ×3 (08:05→20:21)
[2018-07-08] MEDS: INSULIN ASPART [NOVOLOG] 3 ML PEN SC SCH ×4 (08:07→20:19)
[2018-07-08] MEDS: ENOXAPARIN 40 MG/0.4 ML SYG SC SCH (08:07)
[2018-07-08] MEDS: AMLODIPINE 5 MG TAB PO SCH ×2 (08:11→20:21)
[2018-07-08] MEDS: CEFTRIAXONE 1 GM/50 ML (PMX) 50 ML IVPB SCH (08:47)
--- NOTE | 2018-07-08 09:31 | PN ---
Date/Time of Note Date/Time of Note DATE: 07/08/18 TIME: 09:30 Assessment/Plan Lines/Catheters IV Catheter Type (from Nrsg): Peripheral IV Gibson in Place (from Nrsg): No Subjective 24 Hr Interval Summary Constitutional: improved Pain Control: mild Exam/Review of Systems Vital Signs Vitals Vital Signs Date Temp Pulse Resp B/P (MAP) Pulse Ox O2 O2 Flow FiO2 Time Delivery Rate 07/08/18 99.3 74 18 129/73 97 Room Air 08:05 (91) Intake and Output 07/07/18 07/07/18 07/08/18 1414:59 22:59 06:59 IntakeIntake Total 640 ml 990 ml 1200 ml BalanceBalance 640 ml 990 ml 1200 ml Exam Eyes: nl conjunctiva, EOMI, nl lids, nl sclera ENMT: nl external ears & nose, nl lips & teeth, nl nasal mucosa & septum, mucosa pink and moist Neck: supple, non-tender Respiratory: clear to auscultation, normal air movement Cardiovascular: regular rate and rhythm, nl pulses Gastrointestinal: soft, nl liver, spleen, non-tender Musculoskeletal: nl extremities to inspection, nl gait and stance Results Result Diagram: 07/05/18 0538 07/08/18 0542 DONTRELL RODRIGUEZ MD Jul 08, 2018 09:31
--- NOTE | 2018-07-08 11:42 | PN ---
Date/Time of Note Date/Time of Note DATE: 07/08/18 TIME: 11:38 Assessment/Plan VTE Prophylaxis Risk score (from Ns)>0 risk: 2 SCD applied (from Ns): No SCD contraindicated: low risk/ambulating Pharmacological prophylaxis: NA/contraindicated, LMWH Pharm contraindication: low risk/ambulating Lines/Catheters IV [facility] Peripheral IV Urinary Cath still in place: No Assessment/Plan Hospital Course Hospital Course 1. Left foot cellulitis. Discoloration of 2 and 3 toes. S/p amputation of the left fourth digit and transmetatarsal amputation of the fifth digit. 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 On Xray soft tissue swelling. Vascular calcification consistent with atherosclerotic disease. Also noted to have right sole of the foot blackish discoloration 2. Anemia 3. Overweight 4. DANIELLE, creatinine 1.97. Pt creatinine was 1.[address] [facility] February 2018 and then return to normal. Peaked due to its and is 1.69 today> 1.57 5. DM type II with diabetic neuropathy 6. Hypertension 7. Right foot sole wound 8. Peripheral vascular disease. On Duplex US 09/2017 Monophasic wave forms in bilateral posterior tibial arteries and dorsalis pedis arteries consistent with a significant bilateral infrapopliteal stenosis. Plan - MRI +Findings consistent with osteomyelitis at the fifth metatarsal amputation site. Findings consistent with osteomyelitis of the third toe distal, and probably middle and proximal phalanges. Findings likely representing osteomyelitis of the second toe distal phalanx. -Should wait for 1 or 2 days until the creatinine gets normalized and then proceed with angiogram talk to Dr. Jono Dhaliwal creatinine is stable from yesterday - cw Rocephin -We will also likely need amputation of the third toe per podiatry -Continue with pentoxifylline -cwWith clonidine and Norvasc for blood pressure -cw with IV iron - cw NS -Check urine analysis - hold nephrotoxic agents strict I's and O's - GI prophylaxsis Result Diagram: 07/05/18 0538 07/08/18 0542 Results 24hrs Laboratory Tests Test 07/07/18 12:46 07/07/18 17:29 07/07/18 21:14 07/08/18 05:42 Bedside Glucose 199 153 210 Sodium Level 142 Potassium Level 4.4 Chloride Level 109 Carbon Dioxide Level 26 Anion Gap 7 Blood Urea Nitrogen 21 H Creatinine 1.57 H Est Glomerular 46 L Filtrat Rate mL/min Glucose Level 165 Calcium Level 8.7 Test 07/08/18 08:05 Bedside Glucose 159 Subjective 24 Hr Interval Summary Free Text/Dictation wounds Reviewed Exam/Review of Systems Exam Vitals Vital Signs Date Temp Pulse Resp B/P (MAP) Pulse Ox O2 O2 Flow FiO2 Time Delivery Rate 07/08/18 99.3 74 18 129/73 97 Room Air 08:05 (91) Intake and Output 07/07/18 07/07/18 07/08/18 1515:00 23:00 07:00 IntakeIntake Total 640 ml 990 ml 1200 ml BalanceBalance 640 ml 990 ml 1200 ml Exam GENERAL: Well-nourished, well-developed who is awake, in no distress. HEENT: Head atraumatic, normocephalic. NECK: Supple. CHEST: Rise symmetrical. Breath sounds clear. HEART: S1, S2. ABDOMEN: Soft, bowel tones present. EXTREMITIES: Left foot erythema, edema and pressure sores on his third, second toe, right foot with plantar necrotic skin break Right sole has blackish discoloration near on fourth and fifth metatarsal Results Results 24hrs Laboratory Tests Test 07/07/18 12:46 07/07/18 17:29 07/07/18 21:14 07/08/18 05:42 Bedside Glucose 199 153 210 Sodium Level 142 Potassium Level 4.4 Chloride Level 109 Carbon Dioxide Level 26 Anion Gap 7 Blood Urea Nitrogen 21 H Creatinine 1.57 H Est Glomerular 46 L Filtrat Rate mL/min Glucose Level 165 Calcium Level 8.7 Test 07/08/18 08:05 Bedside Glucose 159 Medications Medication Current Medications Insulin Aspart (Novolog Insulin Pen) NOVOLOG *MODERATE* ALGORITHM WITH MEALS B EDTIME SC Last administered on 07/08/18at 08:07; Admin Dose 2 UNIT; Start 07/04/18 at 08:00 Acetaminophen/ Hydrocodone Bitart ([place] (5/325)) 1 tab Q4H PRN PO MODERATE PAIN LEVEL 4-6; Start 07/04/18 at 01:30 Enoxaparin Sodium (Lovenox) 40 mg DAILY SC Last administered on 07/08/18at 08:07; Admin Dose 40 MG; Start 07/04/18 at 09:00 Pantoprazole (Protonix Tab) 40 mg DAILY@06 PO Last administered on 07/08/18 05:59; Admin Dose 40 MG; Start 07/04/18 at 06:00 Acetaminophen (Tylenol Tab) 650 mg Q6H PRN PO MILD PAIN(1-3)OR ELEVATED TEMP Last administered on 07/04/18 21:28; Admin Dose 650 MG; Start 07/04/18 at 01:30 Clonidine (Catapres) 0.1 mg TID PO Last administered on 07/08/18 08:12; Admin Dose 0.1 MG; Start 07/04/18 at 09:00 Clonidine (Catapres) 0.1 mg Q6H PRN PO ELEVATED BLOOD PRESSURE Last ad ministered on 07/04/18 01:47; Admin Dose 0.1 MG; Start 07/04/18 at 01:30 Ceftriaxone Sodium 50 ml @ 100 mls/hr Q24H IVPB Last administered on 07/08/18 08:47; Admin Dose 100 MLS/HR; Start 07/04/18 at 09:00 Miscellaneous Information 1 ea NOTE XX ; Start 07/04/18 at 02:00 Glucose (Glutose) 15 gm Q15M PRN PO DECREASED GLUCOSE; Start 07/04/18 at 02:00 Glucose (Glutose) 22.5 gm Q15M PRN PO DECREASED GLUCOSE; Start 07/04/18 at 02:00 Dextrose (D50w Syringe) 25 ml Q15M PRN IV DECREASED GLUCOSE; Start 07/04/18 at 02:00 Dextrose (D50w Syringe) 50 ml Q15M PRN IV DECREASED GLUCOSE; Start 07/04/18 at 02:00 Glucagon (Glucagen) 1 mg Q15M PRN IM DECREASED GLUCOSE; Start 07/04/18 at 02:00 Glucose (Glutose) 15 gm Q15M PRN BUCCAL DECREASED GLUCOSE; Start 07/04/18 at 02:00 Bisacodyl (Dulcolax) 10 mg BID PRN PO CONSTIPATION; Start 07/04/18 at 01:30 [facility]iscellaneous [facility] This patient mora... PRN PRN XX WOUND CARE; Start 07/04/18 at 02:00 Pentoxifylline (Trental) 400 mg TID PO Last administered on 07/08/18 08:05; Admin Dose 400 MG; Start 07/04/18 at 21:00 Sodium Chloride 1,000 ml @ 100 mls/hr Q10H IV Last administered on 07/08/18 02:49; Admin Dose 100 MLS/HR; Start 07/04/18 at 14:00 Linagliptin (Tradjenta) 5 mg DAILY PO Last administered on 07/08/18 08:05; Ad min Dose 5 MG; Start 07/04/18 at 14:00 Ferric Sodium Gluconate Complex 125 mg/Sodium Chloride 110 ml @ 110 mls/hr DAILY@1300 IVPB Last administered on 07/07/18 13:05; Admin Dose 110 MLS/HR; Start 07/05/18 at 13:00; Stop 07/09/18 at 13:59 Amlodipine Besylate (Norvasc) 5 mg BID PO Last administered on 07/08/18 08:11; Admin Dose 5 MG; Start 07/07/18 at 15:00 GINA SUTTON MD Jul 08, 2018 11:42
[2018-07-08] MEDS: SOD FERRIC GLUC COMPLX 125 MG in SOD CHLORIDE 0.9% 100 ML IVPB SCH (13:10)
--- NOTE | 2018-07-08 13:42 | CONS ---
Assessment/Plan Assessment/Plan Hospital Course (Demo Recall) No acute events overnight patient looks comfortable no fevers no CBC today. BUN 21 creatinine 1.57 Antimicrobials: Rocephin Micro: wound cx + HÉCTOR PHYSICAL EXAMINATION: GENERAL: Well-nourished, well-developed 52-year-old man who is awake, in no distress. HEENT: Head atraumatic, normocephalic. NECK: Supple. CHEST: Rise symmetrical. Breath sounds clear. HEART: S1, S2. ABDOMEN: Soft, bowel tones present. EXTREMITIES: Left foot erythema, edema and pressure sores on his third, second toe, right foot with plantar necrotic skin breakdown. Assessment: 1. Left foot HÉCTOR cellulitis 2. Diabetes 3. Diabetic neuropathy 4. Hypertension 5. Peripheral vascular disease Plan: Patient remains stable, continue antibiotics, plan for angiogram and possible angioplasty Consultation Date/Type/Reason Admit Date/Time Jul 03, 2018 at 22:10 Initial Consult Date 07/04/18 Type of Consult id Date/Time of Note DATE: 07/08/18 TIME: 13:41 Exam/Review of Systems Exam Vitals Vital Signs Date Temp Pulse Resp B/P (MAP) Pulse Ox O2 O2 Flow FiO2 Time Delivery Rate 07/08/18 99.3 74 18 129/73 97 Room Air 08:05 (91) Intake and Output 07/07/18 07/07/18 07/08/18 1515:00 23:00 07:00 IntakeIntake Total 640 ml 990 ml 1200 ml BalanceBalance 640 ml 990 ml 1200 ml Results Result Diagram: 07/05/18 0538 07/08/18 0542 Results 24hrs Laboratory Tests Test 07/07/18 17:29 07/07/18 21:14 07/08/18 05:42 07/08/18 08:05 Bedside Glucose 153 210 159 Sodium Level 142 Potassium Level 4.4 Chloride Level 109 Carbon Dioxide Level 26 Anion Gap 7 Blood Urea Nitrogen 21 H Creatinine 1.57 H Est Glomerular 46 L Filtrat Rate mL/min Glucose Level 165 Calcium Level 8.7 Test 07/08/18 12:08 Bedside Glucose 216 Medications Medication Current Medications Insulin Aspart (Novolog Insulin Pen) NOVOLOG *MODERATE* ALGORITHM WITH MEALS BEDTIME SC Last administered on 07/08/18at 12:12; Admin Dose 4 UNIT; Start 07/04/18 at 08:00 Acetaminophen/ Hydrocodone Bitart ([place] (5/325)) 1 tab Q4H PRN PO MODERATE PAIN LEVEL 4-6; Start 07/04/18 at 01:30 Pantoprazole (Protonix Tab) 40 mg DAILY@06 PO Last administered on 07/08/18at 05:59; Admin Dose 40 MG; Start 07/04/18 at 06:00 Acetaminophen (Tylenol Tab) 650 mg Q6H PRN PO MILD PAIN(1-3)OR ELEVATED TEMP Last administered on 07/04/18at 21:28; Admin Dose 650 MG; Start 07/04/18 at 01:30 Clonidine (Catapres) 0.1 mg TID PO Last administered on 07/08/18 12:10; Admin Dose 0.1 MG; Start 07/04/18 at 09:00 Clonidine (Catapres) 0.1 mg Q6H PRN PO ELEVATED BLOOD PRESSURE Last adminis tered on 07/04/18at 01:47; Admin Dose 0.1 MG; Start 07/04/18 at 01:30 Ceftriaxone Sodium 50 ml @ 100 mls/hr Q24H IVPB Last administered on 07/08/18 08:47; Admin Dose 100 MLS/HR; Start 07/04/18 at 09:00 Miscellaneous Information 1 ea NOTE XX ; Start 07/04/18 at 02:00 Glucose (Glutose) 15 gm Q15M PRN PO DECREASED GLUCOSE; Start 07/04/18 at 02:00 Glucose (Glutose) 22.5 gm Q15M PRN PO DECREASED GLUCOSE; Start 07/04/18 at 02:00 Dextrose (D50w Syringe) 25 ml Q15M PRN IV DECREASED GLUCOSE; Start 07/04/18 at 02:00 Dextrose (D50w Syringe) 50 ml Q15M PRN IV DECREASED GLUCOSE; Start 07/04/18 at 02:00 Glucagon (Glucagen) 1 mg Q15M PRN IM DECREASED GLUCOSE; Start 07/04/18 at 02:00 Glucose (Glutose) 15 gm Q15M PRN BUCCAL DECREASED GLUCOSE; Start 07/04/18 at 02:00 Bisacodyl (Dulcolax) 10 mg BID PRN PO CONSTIPATION; Start 07/04/18 at 01:30 Miscellaneous Information (Pending [facility] Order For Wound Care) This patient mora... PRN PRN XX WOUND CARE; Start 07/04/18 at 02:00 Pentoxifylline (Trental) 400 mg TID PO Last administered on 07/08/18at 12:10; Admin Dose 400 MG; Start 07/04/18 at 21:00 Sodium Chloride 1,000 ml @ 100 mls/hr Q10H IV Last administered on 07/08/18 12:09; Admin Dose 100 MLS/HR; Start 07/04/18 at 14:00 Linagliptin (Tradjenta) 5 mg DAILY PO Last administered on 07/08/18 08:05; Admin Dose 5 MG; Start 07/04/18 at 14:00 Ferric Sodium Gluconate Complex 125 mg/Sodium Chloride 110 ml @ 110 mls/hr DAILY@1300 IVPB Last administered on 07/08/18at 13:10; Admin Dose 110 MLS/HR; Start 07/05/18 at 13:00; Stop 07/09/18 at 13:59 Amlodipine Besylate (Norvasc) 5 mg BID PO Last administered on 07/08/18at 08:11; Admin Dose 5 MG; Start 07/07/18 at 15:00 Enoxaparin Sodium (Lovenox) 30 mg DAILY SC ; Start 07/09/18 at 09:00 ROXANNA SOMERS NP Jul 08, 2018 13:42
[2018-07-08 14:00] VITALS: BP 130/72; PULSE 73; RESP 17
[2018-07-08 19:47] VITALS: BP 136/80; PULSE 73; RESP 20
--- NOTE | 2018-07-08 23:50 | PN ---
Date/Time of Note Date/Time of Note DATE: 07/08/18 TIME: 23:50 Assessment/Plan Lines/Catheters IV Catheter Type (from [facility]): Peripheral IV Gibson in Place (from [facility]): No Assessment/Plan Problems: (1) Anemia Status: Acute Qualifiers: Anemia type: unspecified type Qualified Codes: D64.9 - Anemia, unspecified (2) Cellulitis of foot Status: Acute (3) Osteomyelitis Status: Acute Qualifiers: Osteomyelitis type: unspecified type Osteomyelitis location: foot Laterality: right Qualified Codes: M86.9 - Osteomyelitis, unspecified (4) Open wound of left foot Qualifiers: Encounter type: initial encounter Qualified Codes: S91.302A - Unspecified open wound, left foot, initial encounter (5) Gangrene of right foot Status: Acute (6) Diabetes, polyneuropathy (7) Peripheral vascular disease (8) Gangrene of left foot (9) Postop check Assessment/Plan Continue current management. Follow up with vascular surgery. Patient will be followed in-house. Subjective 24 Hr Interval Summary Patient was seen at bedside. Patient is in no acute distress. Denies overnight adverse events. Denies fever, chills, nausea or vomiting. Denies recent trauma. Constitutional: no complaints Pain Control: well controlled Exam/Review of Systems Vital Signs Vitals Vital Signs Date Temp Pulse Resp B/P (MAP) Pulse Ox O2 O2 Flow FiO2 Time Delivery Rate 07/23/18 98.3 66 18 127/82 97 20:00 (97) 07/23/18 Room Air 12:44 07/23/18 4.0 12:34 Intake and Output 07/23/18 07/23/18 07/24/18 1515:00 23:00 07:00 IntakeIntake Total 1000 ml 935 ml OutputOutput Total 602 ml BalanceBalance 398 ml 935 ml Exam Free Text/Dictation Patient is a supine in bed in no acute distress. Open wound right foot with more necrosis of the metatarsophalangeal joint. Left foot is status post fourth and fifth ray amputation with the third toe gangrenous and filled with pus at the distal aspect. Malodor present. No other changes noted on examination. Results Result Diagram: 07/22/18 0710 07/22/18 0710 JOSE A HIGUERA DPM Jul 08, 2018 23:50
[2018-07-09 02:00] VITALS: BP 139/79; PULSE 72; RESP 18
[2018-07-09] MEDS: SOD CHLORIDE 0.9% 1,000 ML IV SCH ×3 (02:15→23:28)
[2018-07-09] MEDS: PANTOPRAZOLE (EC) 40 MG TAB PO SCH (06:12)
[2018-07-09 07:35] VITALS: BP 150/81; PULSE 75; RESP 16
[2018-07-09] MEDS: CEFTRIAXONE 1 GM/50 ML (PMX) 50 ML IVPB SCH (08:19)
[2018-07-09] MEDS: LINAGLIPTIN 5 MG TABLET PO SCH (08:19)
[2018-07-09] MEDS: PENTOXIFYLLINE (SR) 400 MG TAB PO SCH ×3 (08:19→21:19)
[2018-07-09] MEDS: AMLODIPINE 5 MG TAB PO SCH ×2 (08:21→21:20)
[2018-07-09] MEDS: INSULIN ASPART [NOVOLOG] 3 ML PEN SC SCH ×4 (08:22→23:32)
[2018-07-09] MEDS: ENOXAPARIN 30 MG/0.3 ML SYG SC SCH (08:23)
[2018-07-09] MEDS: SOD FERRIC GLUC COMPLX 125 MG in SOD CHLORIDE 0.9% 100 ML IVPB SCH (12:09)
[2018-07-09 14:30] VITALS: BP 135/78; PULSE 73; RESP 18
--- NOTE | 2018-07-09 14:35 | PN ---
Date/Time of Note Date/Time of Note DATE: 07/09/18 TIME: 14:33 Assessment/Plan VTE Prophylaxis Risk score (from Ns)>0 risk: 2 [place]CD applied [place] [facility] [place] SCD contraindicated: low risk/ambulating Pharmacological prophylaxis: NA/contraindicated Pharm contraindication: low risk/ambulating Lines/Catheters IV C[facility]ter Type (from [facility]): Peripheral IV Urinary Cath still in place: No Assessment/Plan Hospital Course Hospital Course 1. Left foot cellulitis. Discoloration of 2 and 3 toes. S/p amputation of the left fourth digit and transmetatarsal amputation of the fifth digit. 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 On Xray soft tissue swelling. Vascular calcification consistent with atherosclerotic disease. Also noted to have right sole of the foot blackish discoloration 2. Anemia 3. Overweight 4. DANIELLE, creatinine 1.97. Pt creatinine was 1.73 in [facility] February 2018 and then return to normal. Peaked due to its and is 1.69 today> 1.57 5. DM type II with diabetic neuropathy 6. Hypertension 7. Right foot sole wound 8. Peripheral vascular disease. On Duplex US 09/2017 Monophasic wave forms in bilateral posterior tibial arteries and dorsalis pedis arteries consistent with a significant bilateral infrapopliteal stenosis. Plan - MRI +Findings consistent with osteomyelitis at the fifth metatarsal amputation site. Findings consistent with osteomyelitis of the third toe distal, and probably middle and proximal phalanges. Findings likely representing osteomyelitis of the second toe distal phalanx. -Should wait for 1 or 2 days until the creatinine gets normalized and then proceed with angiogram talk to Dr. Jono Dhaliwal creatinine is going down - cw Rocephin -We will also likely need amputation of the third toe per podiatry -Continue with pentoxifylline -cwWith clonidine and Norvasc for blood pressure -cw with IV iron - cw NS - hold nephrotoxic agents strict I's and O's - GI prophylaxsis Result Diagram: 07/05/18 0538 07/09/18 1017 Results 24hrs Laboratory Tests Test 07/08/18 17:08 07/08/18 20:17 07/09/18 04:10 07/09/18 07:50 Bedside Glucose 229 H 195 170 153 Test 07/09/18 10:17 07/09/18 11:57 Sodium Level 142 Potassium Level 4.3 Chloride Level 110 Carbon Dioxide Level 25 Anion Gap 7 Blood Urea Nitrogen 19 Creatinine 1.42 H Est Glomerular 52 L Filtrat Rate mL/min Glucose Level 211 Calcium Level 8.7 Bedside Glucose 224 H Subjective 24 Hr Interval Summary Free Text/Dictation Good spirits SBP 130s-150s creatinine trending down to 1.4 Exam/Review of Systems Exam Vitals Vital Signs Date Temp Pulse Resp B/P (MAP) Pulse Ox O2 O2 Flow FiO2 Time Delivery Rate 07/09/18 98.2 75 16 150/81 97 Room Air 07:35 (104) Intake and Output 07/08/18 07/08/18 07/09/18 1515:00 23:00 07:00 IntakeIntake Total 1630 ml 380 ml 950 ml BalanceBalance 1630 ml 380 ml 950 ml Exam GENERAL: Well-nourished, well-developed who is awake, in no distress. HEENT: Head atraumatic, normocephalic. NECK: Supple. CHEST: Rise symmetrical. Breath sounds clear. HEART: S1, S2. ABDOMEN: Soft, bowel tones present. EXTREMITIES: Left foot erythema, edema and pressure sores on his third, second toe, right foot with plantar necrotic skin break Right sole has blackish discoloration near on fourth and fifth metatarsal Results Results 24hrs Laboratory Tests Test 07/08/18 17:08 07/08/18 20:17 07/09/18 04:10 07/09/18 07:50 Bedside Glucose 229 H 195 170 153 Test 07/09/18 10:17 07/09/18 11:57 Sodium Level 142 Potassium Level 4.3 Chloride Level 110 Carbon Dioxide Level 25 Anion Gap 7 Blood Urea Nitrogen 19 Creatinine 1.42 H Est Glomerular 52 L Filtrat Rate mL/min Glucose Level 211 Calcium Level 8.7 Bedside Glucose 224 H Medications Medication Current Medications Insulin Aspart (Novolog Insulin Pen) NOVOLOG *MODERATE* ALGORITHM WITH MEALS BEDTIME SC Last administered on 07/09/18at 12:05; Admin Dose 6 UNIT; Start 07/04/18 at 08:00 Acetaminophen/ Hydrocodone Bitart ([place] (5/325)) 1 tab Q4H PRN PO MODERATE PAIN LEVEL 4-6; Start 07/04/18 at 01:30 Pantoprazole (Protonix Tab) 40 mg DAILY@06 PO Last administered on 07/09/18at 06:12; Admin Dose 40 MG; Start 07/04/18 at 06:00 Acetaminophen (Tylenol Tab) 650 mg Q6H PRN PO MILD PAIN(1-3)OR ELEVATED TEMP Last administered on 07/04/18at 21:28; Admin Dose 650 MG; Start 07/04/18 at 01:30 Clonidine (Catapres) 0.1 mg TID PO Last administered on 07/09/18at 12:38; Admin Dose 0.1 MG; Start 07/04/18 at 09:00 Clonidine (Catapres) 0.1 mg Q6H PRN PO ELEVATED BLOOD PRESSURE Last administered on 07/04/18at 01:47; Admin Dose 0.1 MG; Start 07/04/18 at 01:30 Ceftriaxone Sodium 50 ml @ 100 mls/hr Q24H IVPB Last administered on 07/09/18at 08:19; Admin Dose 100 MLS/HR; Start 07/04/18 at 09:00 Miscellaneous Information 1 ea NOTE XX ; Start 07/04/18 at 02:00 Glucose (Glutose) 15 gm Q15M PRN PO DECREASED GLUCOSE; Start 07/04/18 at 02:00 Glucose (Glutose) 22.5 gm Q15M PRN PO DECREASED GLUCOSE; Start 07/04/18 at 02:00 Dextrose (D50w Syringe) 25 ml Q15M PRN IV DECREASED GLUCOSE; Start 07/04/18 at 02:00 Dextrose (D50w Syringe) 50 ml Q15M PRN IV DECREASED GLUCOSE; Start 07/04/18 at 02:00 Glucagon (Glucagen) 1 mg Q15M PRN IM DECREASED GLUCOSE; Start 07/04/18 at 02:00 Glucose (Glutose) 15 gm Q15M PRN BUCCAL DECREASED GLUCOSE; Start 07/04/18 at 02:00 Bisacodyl (Dulcolax) 10 mg BID PRN PO CONSTIPATION; Start 07/04/18 at 01:30 Miscellaneous Information (Pending [facility] Order For Wound Care) This patient mora... PRN PRN XX WOUND CARE; Start 07/04/18 at 02:00 Pentoxifylline (Trental) 400 mg TID PO Last administered on 07/09/18at 12:35; Admin Dose 400 MG; Start 07/04/18 at 21:00 Sodium Chloride 1,000 ml @ 100 mls/hr Q10H IV Last administered on 07/09/18at 12:42; Admin Dose 100 MLS/HR; Start 07/04/18 at 14:00 Linagliptin (Tradjenta) 5 mg DAILY PO Last administered on 07/09/18at 08:19; Admin Dose 5 MG; Start 07/04/18 at 14:00 Amlodipine Besylate (Norvasc) 5 mg BID PO Last administered on 07/09/18at 08:21; Admin Dose 5 MG; Start 07/07/18 at 15:00 Enoxaparin Sodium (Lovenox) 30 mg DAILY SC Last administered on 07/09/18at 08:23; Admin Dose 30 MG; Start 07/09/18 at 09:00 GINA SUTTON MD Jul 09, 2018 14:35
--- NOTE | 2018-07-09 16:43 | CONS ---
Assessment/Plan Assessment/Plan Hospital Course (Demo Recall) No acute events overnight patient looks comfortable no fevers Antimicrobials: Rocephin Micro: wound cx + HÉCTOR PHYSICAL EXAMINATION: GENERAL: Well-nourished, well-developed 52-year-old man who is awake, in no distress. HEENT: Head atraumatic, normocephalic. NECK: Supple. CHEST: Rise symmetrical. Breath sounds clear. HEART: S1, S2. ABDOMEN: Soft, bowel tones present. EXTREMITIES: Left foot erythema, edema and pressure sores on his third, second toe, right foot with plantar necrotic skin breakdown. Assessment: 1. Left foot HÉCTOR cellulitis 2. Diabetes 3. Diabetic neuropathy 4. Hypertension 5. Peripheral vascular disease Plan: Patient remains stable, continue antibiotics, pending angiogram with possible angioplasty Consultation Date/Type/Reason Admit Date/Time Jul 03, 2018 at 22:10 Initial Consult Date 07/04/18 Type of Consult id Date/Time of Note DATE: 07/09/18 TIME: 16:42 Exam/Review of Systems Exam Vitals Vital Signs Date Temp Pulse Resp B/P (MAP) Pulse Ox O2 O2 Flow FiO2 Time Delivery Rate 07/09/18 98.4 73 18 135/78 98 Room Air 14:30 (97) Intake and Output 07/08/18 07/08/18 07/09/18 1515:00 23:00 07:00 IntakeIntake Total 1630 ml 380 ml 950 ml BalanceBalance 1630 ml 380 ml 950 ml Results Result Diagram: 07/05/18 0538 07/09/18 1017 Results 24hrs Laboratory Tests Test 07/08/18 17:08 07/08/18 20:17 07/09/18 04:10 07/09/18 07:50 Bedside Glucose 229 H 195 170 153 Test 07/09/18 10:17 07/09/18 11:57 Sodium Level 142 Potassium Level 4.3 Chloride Level 110 Carbon Dioxide Level 25 Anion Gap 7 Blood Urea Nitrogen 19 Creatinine 1.42 H Est Glomerular 52 L Filtrat Rate mL/min Glucose Level 211 Calcium Level 8.7 Bedside Glucose 224 H Medications Medication Current Medications Insulin Aspart (Novolog Insulin Pen) NOVOLOG *MODERATE* ALGORITHM WITH MEALS BE DTIME SC Last administered on 07/09/18at 12:05; Admin Dose 6 UNIT; Start 07/04/18 at 08:00 Acetaminophen/ Hydrocodone Bitart ([place] (5/325)) 1 tab Q4H PRN PO MODERATE PAIN LEVEL 4-6; Start 07/04/18 at 01:30 Pantoprazole (Protonix Tab) 40 mg DAILY@06 PO Last administered on 07/09/18at 06:12; Admin Dose 40 MG; Start 07/04/18 at 06:00 Acetaminophen (Tylenol Tab) 650 mg Q6H PRN PO MILD PAIN(1-3)OR ELEVATED TEMP Last administered on 07/04/18at 21:28; Admin Dose 650 MG; Start 07/04/18 at 01:30 Clonidine (Catapres) 0.1 mg TID PO Last administered on 07/09/18at 12:38; Admin Dose 0.1 MG; Start 07/04/18 at 09:00 Clonidine (Catapres) 0.1 mg Q6H PRN PO ELEVATED BLOOD PRESSURE Last administered on 07/04/18at 01:47; Admin Dose 0.1 MG; Start 07/04/18 at 01:30 Ceftriaxone Sodium 50 ml @ 100 mls/hr Q24H IVPB Last administered on 07/09/18at 08:19; Admin Dose 100 MLS/HR; Start 07/04/18 at 09:00 Miscellaneous Information 1 ea NOTE XX ; Start 07/04/18 at 02:00 Glucose (Glutose) 15 gm Q15M PRN PO DECREASED GLUCOSE; Start 07/04/18 at 02:00 Glucose (Glutose) 22.5 gm Q15M PRN PO DECREASED GLUCOSE; Start 07/04/18 at 02:00 Dextrose (D50w Syringe) 25 ml Q15M PRN IV DECREASED GLUCOSE; Start 07/04/18 at 02:00 Dextrose (D50w Syringe) 50 ml Q15M PRN IV DECREASED GLUCOSE; Start 07/04/18 at 02:00 Glucagon (Glucagen) 1 mg Q15M PRN IM DECREASED GLUCOSE; Start 07/04/18 at 02:00 Glucose (Glutose) 15 gm Q15M PRN BUCCAL DECREASED GLUCOSE; Start 07/04/18 at 02:00 Bisacodyl (Dulcolax) 10 mg BID PRN PO CONSTIPATION; Start 07/04/18 at 01:30 Miscellaneous Information (Pending [facility] Order For Wound Care) This patient mora... PRN PRN XX WOUND CARE; Start 07/04/18 at 02:00 Pentoxifylline (Trental) 400 mg TID PO Last administered on 07/09/18 12:35; Admin Dose 400 MG; Start 07/04/18 at 21:00 Sodium Chloride 1,000 ml @ 100 mls/hr Q10H IV Last administered on 07/09/18 12:42; Admin Dose 100 MLS/HR; Start 07/04/18 at 14:00 Linagliptin (Tradjenta) 5 mg DAILY PO Last administered on 07/09/18 08:19; Admin Dose 5 MG; Start 07/04/18 at 14:00 Amlodipine Besylate (Norvasc) 5 mg BID PO Last administered on 07/09/18 08:21; Admin Dose 5 MG; Start 07/07/18 at 15:00 Enoxaparin Sodium (Lovenox) 30 mg DAILY SC Last administered on 07/09/18 08:23; Admin Dose 30 MG; Start 07/09/18 at 09:00 ROXANNA SOMERS NP Jul 09, 2018 16:43
[2018-07-09 20:23] VITALS: BP 144/79; PULSE 79; RESP 20
[2018-07-10 03:03] VITALS: BP 120/75; PULSE 78
[2018-07-10] MEDS: PANTOPRAZOLE (EC) 40 MG TAB PO SCH (05:27)
[2018-07-10 07:30] VITALS: BP 164/88; PULSE 82; RESP 18
[2018-07-10] MEDS: CEFTRIAXONE 1 GM/50 ML (PMX) 50 ML IVPB SCH (08:55)
[2018-07-10] MEDS: ENOXAPARIN 30 MG/0.3 ML SYG SC SCH (08:57)
[2018-07-10] MEDS: INSULIN ASPART [NOVOLOG] 3 ML PEN SC SCH ×4 (08:58→21:00)
[2018-07-10] MEDS: LINAGLIPTIN 5 MG TABLET PO SCH (08:58)
[2018-07-10] MEDS: AMLODIPINE 5 MG TAB PO SCH ×2 (08:59→21:11)
[2018-07-10] MEDS: PENTOXIFYLLINE (SR) 400 MG TAB PO SCH ×3 (09:00→21:11)
[2018-07-10] MEDS: SOD CHLORIDE 0.9% 1,000 ML IV SCH ×3 (09:01→19:29)
--- NOTE | 2018-07-10 10:59 | PN ---
Date/Time of Note Date/Time of Note DATE: 07/10/18 TIME: 10:53 Assessment/Plan VTE Prophylaxis Risk score (from Nsg)>0 risk: 3 SCD applied (from Ns): No SCD contraindicated: low risk/ambulating Pharmacological prophylaxis: LMWH Lines/Catheters IV Catheter Type (from Nrs): Peripheral IV Urinary Cath still in place: No Assessment/Plan Hospital Course 1. Left foot cellulitis. Discoloration of 2 and 3 toes. S/p amputation of the left fourth digit and transmetatarsal amputation of the fifth digit. 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 On Xray soft tissue swelling. Vascular calcification consistent with atherosclerotic disease. Healing fracture at the base of the second metatarsal. 2. Anemia 3. Overweight 4. DANIELLE, creatinine 1.36 today from 1.97 on hospitalization. Pt creatinine was 1.73 in [facility] February 2018 and then return to normal 5. DM type II with diabetic neuropathy 6. Hypertension 7. Right foot sole wound 8. Peripheral vascular disease. On Duplex US 09/2017 Monophasic wave forms in bilateral posterior tibial arteries and dorsalis pedis arteries consistent with a significant bilateral infrapopliteal stenosis. 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 - MRI +Findings consistent with osteomyelitis at the fifth metatarsal amputation site. Findings consistent with osteomyelitis of the third toe distal, and probably middle and proximal phalanges. Findings likely representing osteomy elitis of the second toe distal phalanx. -Should wait for 1 or 2 days until the creatinine gets normalized and then proceed with angiogram - talk to Dr. De La Rosa -creatinine is going down - cw Rocephin -wound care -We will also likely need amputation of the third toe per podiatry -Continue with pentoxifylline -cw clonidine and Norvasc for blood pressure - IV iron 5/5 given -c/w NS 100 ml/hour - hold nephrotoxic agents strict I's and O's - GI prophylaxis pROTONIX po Result Diagram: 07/10/18 0454 Results 24hrs Laboratory Tests Test 07/09/18 11:57 07/09/18 16:51 07/09/18 21:16 07/10/18 04:54 Bedside Glucose 224 H 130 187 Sodium Level 141 Potassium Level 4.0 Chloride Level 110 Carbon Dioxide Level 25 Anion Gap 6 Blood Urea Nitrogen 18 Creatinine 1.36 H Est Glomerular 55 L Filtrat Rate mL/min Glucose Level 152 Calcium Level 8.7 Test 07/10/18 08:05 Bedside Glucose 152 Subjective 24 Hr Interval Summary Musculoskeletal: bone/joint pain Exam/Review of Systems Exam Vitals Vital Signs Date Temp Pulse Resp B/P (MAP) Pulse Ox O2 O2 Flow FiO2 Time Delivery Rate 07/10/18 97.6 82 18 164/88 97 Room Air 07:30 (113) Intake and Output 07/09/18 07/09/18 07/10/18 1414:59 22:59 06:59 IntakeIntake Total 1050 ml 960 ml 1080 ml BalanceBalance 1050 ml 960 ml 1080 ml Constitutional: alert, oriented Respiratory: clear to auscultation Cardiovascular: regular rate and rhythm Gastrointestinal: soft Musculoskeletal: other (left foot toes wounds, wet gangrene of toes, right foot sole wound) Results Results 24hrs Laboratory Tests Test 07/09/18 11:57 07/09/18 16:51 07/09/18 21:16 07/10/18 04:54 Bedside Glucose 224 H 130 187 Sodium Level 141 Potassium Level 4.0 Chloride Level 110 Carbon Dioxide Level 25 Anion Gap 6 Blood Urea Nitrogen 18 Creatinine 1.36 H Est Glomerular 55 L Filtrat Rate mL/min Glucose Level 152 Calcium Level 8.7 Test 07/10/18 08:05 Bedside Glucose 152 Medications Medication Current Medications Insulin Aspart (Novolog Insulin Pen) NOVOLOG *MODERATE* ALGORITHM WITH MEALS BEDTIME SC Last administered on 07/10/18at 08:58; Admin Dose 2 UNIT; Start 07/04/18 at 08:00 Acetaminophen/ Hydrocodone Bitart ([place] (5/325)) 1 tab Q4H PRN PO MODERATE PAIN LEVEL 4-6; Start 07/04/18 at 01:30 Pantoprazole (Protonix Tab) 40 mg DAILY@06 PO Last administered on 07/10/18at 05:27; Admin Dose 40 MG; Start 07/04/18 at 06:00 Acetaminophen (Tylenol Tab) 650 mg Q6H PRN PO MILD PAIN(1-3)OR ELEVATED TEMP Last administered on 07/04/18at 21:28; Admin Dose 650 MG; Start 07/04/18 at 01:30 Clonidine (Catapres) 0.1 mg TID PO Last administered on 07/10/18at 08:59; Admin Dose 0.1 MG; Start 07/04/18 at 09:00 Clonidine (Catapres) 0.1 mg Q6H PRN PO ELEVATED BLOOD PRESSURE Last administered on 07/04/18at 01:47; Admin Dose 0.1 MG; Start 07/04/18 at 01:30 Ceftriaxone Sodium 50 ml @ 100 mls/hr Q24H IVPB Last administered on 07/10/18at 08:55; Admin Dose 100 MLS/HR; Start 07/04/18 at 09:00 Miscellaneous Information 1 ea NOTE XX ; Start 07/04/18 at 02:00 Glucose (Glutose) 15 gm Q15M PRN PO DECREASED GLUCOSE; Start 07/04/18 at 02:00 Glucose (Glutose) 22.5 gm Q15M PRN PO DECREASED GLUCOSE; Start 07/04/18 at 02:00 Dextrose (D50w Syringe) 25 ml Q15M PRN IV DECREASED GLUCOSE; Start 07/04/18 at 02:00 Dextrose (D50w Syringe) 50 ml Q15M PRN IV DECREASED GLUCOSE; Start 07/04/18 at 02:00 Glucagon (Glucagen) 1 mg Q15M PRN IM DECREASED GLUCOSE; Start 07/04/18 at 02:00 Glucose (Glutose) 15 gm Q15M PRN BUCCAL DECREASED GLUCOSE; Start 07/04/18 at 02:00 Bisacodyl (Dulcolax) 10 mg BID PRN PO CONSTIPATION; Start 07/04/18 at 01:30 Miscellaneous Information (Pending [facility] Order For Wound Care) This patient mora... PRN PRN XX WOUND CARE; Start 07/04/18 at 02:00 Pentoxifylline (Trental) 400 mg TID PO Last administered on 07/10/18at 09:00; Admin Dose 400 MG; Start 07/04/18 at 21:00 Sodium Chloride 1,000 ml @ 100 mls/hr Q10H IV Last administered on 07/10/18at 09:01; Admin Dose 100 MLS/HR; Start 07/04/18 at 14:00 Linagliptin (Tradjenta) 5 mg DAILY PO Last administered on 07/10/18at 08:58; Admin Dose 5 MG; Start 07/04/18 at 14:00 Amlodipine Besylate (Norvasc) 5 mg BID PO Last administered on 07/10/18at 08:59; Admin Dose 5 MG; Start 07/07/18 at 15:00 Enoxaparin Sodium (Lovenox) 30 mg DAILY SC Last administered on 07/10/18at 08:57; Admin Dose 30 MG; Start 07/09/18 at 09:00 TEODORO RIDER Jul 10, 2018 10:59
[2018-07-10 14:07] VITALS: BP 142/77; PULSE 79
[2018-07-10] MEDS: ZINC SULFATE 220 MG CAP NGT SCH (14:09)
--- NOTE | 2018-07-10 15:15 | CONS ---
Assessment/Plan Assessment/Plan Hospital Course (Demo Recall) No acute events overnight patient is alert, feels good Antimicrobials: Rocephin Micro: wound cx + HÉCTOR PHYSICAL EXAMINATION: GENERAL: Well-nourished, well-developed 52-year-old man who is awake, in no distress. HEENT: Head atraumatic, normocephalic. NECK: Supple. CHEST: Rise symmetrical. Breath sounds clear. HEART: S1, S2. ABDOMEN: Soft, bowel tones present. EXTREMITIES: Left foot erythema, edema and pressure sores on his third, second toe, right foot with plantar necrotic skin breakdown. Assessment: 1. Left foot HÉCTOR cellulitis 2. Diabetes 3. Diabetic neuropathy 4. Hypertension 5. Peripheral vascular disease Plan: Patient remains stable, continue antibiotics, pending angiogram with possible angioplasty, poss toe amputation Consultation Date/Type/Reason Admit Date/Time Jul 03, 2018 at 22:10 Initial Consult Date 07/04/18 Type of Consult id Date/Time of Note DATE: 07/10/18 TIME: 15:13 Exam/Review of Systems Exam Vitals Vital Signs Date Temp Pulse Resp B/P (MAP) Pulse Ox O2 O2 Flow FiO2 Time Delivery Rate 07/10/18 79 142/77 14:07 (98) 07/10/18 97.6 18 97 Room Air 07:30 Intake and Output 07/09/18 07/09/18 07/10/18 1515:00 23:00 07:00 IntakeIntake Total 1050 ml 960 ml 1080 ml BalanceBalance 1050 ml 960 ml 1080 ml Results Result Diagram: 07/10/18 0454 Results 24hrs Laboratory Tests Test 07/09/18 16:51 07/09/18 21:16 07/10/18 04:54 07/10/18 08:05 Bedside Glucose 130 187 152 Sodium Level 141 Potassium Level 4.0 Chloride Level 110 Carbon Dioxide Level 25 Anion Gap 6 Blood Urea Nitrogen 18 Creatinine 1.36 H Est Glomerular 55 L Filtrat Rate mL/min Glucose Level 152 Calcium Level 8.7 Test 07/10/18 12:17 Bedside Glucose 203 Medications Medication Current Medications Insulin Aspart (Novolog Insulin Pen) NOVOLOG *MODERATE* ALGORITHM WITH MEALS BEDTIME SC Last administered on 07/10/18at 12:34; Admin Dose 4 UNIT; Start 07/04/18 at 08:00 Acetaminophen/ Hydrocodone Bitart ([place] (5/325)) 1 tab Q4H PRN PO MODERATE PAIN LEVEL 4-6; Start 07/04/18 at 01:30 Pantoprazole (Protonix Tab) 40 mg DAILY@06 PO Last administered on 07/10/18at 05:27; Admin Dose 40 MG; Start 07/04/18 at 06:00 Acetaminophen (Tylenol Tab) 650 mg Q6H PRN PO MILD PAIN(1-3)OR ELEVATED TEMP Last administered on 07/04/18at 21:28; Admin Dose 650 MG; Start 07/04/18 at 01:30 Clonidine (Catapres) 0.1 mg TID PO Last administered on 07/10/18at 14:10; Admin Dose 0.1 MG; Start 07/04/18 at 09:00 Clonidine (Catapres) 0.1 mg Q6H PRN PO ELEVATED BLOOD PRESSURE Last administered on 07/04/18at 01:47; Admin Dose 0.1 MG; Start 07/04/18 at 01:30 Ceftriaxone Sodium 50 ml @ 100 mls/hr Q24H IVPB Last administered on 07/10/18at 08:55; Admin Dose 100 MLS/HR; Start 07/04/18 at 09:00 Miscellaneous Information 1 ea NOTE XX ; Start 07/04/18 at 02:00 Glucose (Glutose) 15 gm Q15M PRN PO DECREASED GLUCOSE; Start 07/04/18 at 02:00 Glucose (Glutose) 22.5 gm Q15M PRN PO DECREASED GLUCOSE; Start 07/04/18 at 02:00 Dextrose (D50w Syringe) 25 ml Q15M PRN IV DECREASED GLUCOSE; Start 07/04/18 at 02:00 Dextrose (D50w Syringe) 50 ml Q15M PRN IV DECREASED GLUCOSE; Start 07/04/18 at 0 2:00 Glucagon (Glucagen) 1 mg Q15M PRN IM DECREASED GLUCOSE; Start 07/04/18 at 02:00 Glucose (Glutose) 15 gm Q15M PRN BUCCAL DECREASED GLUCOSE; Start 07/04/18 at 02:00 Bisacodyl (Dulcolax) 10 mg BID PRN PO CONSTIPATION; Start 07/04/18 at 01:30 Miscellaneous Information (Pending [facility] Order For Wound Care) This patient mora... PRN PRN XX WOUND CARE; Start 07/04/18 at 02:00 Pentoxifylline (Trental) 400 mg TID PO Last administered on 07/10/18 14:09; Admin Dose 400 MG; Start 07/04/18 at 21:00 Sodium Chloride 1,000 ml @ 100 mls/hr Q10H IV Last administered on 07/10/18 09:01; Admin Dose 100 MLS/HR; Start 07/04/18 at 14:00 Linagliptin (Tradjenta) 5 mg DAILY PO Last administered on 07/10/18 08:58; Admin Dose 5 MG; Start 07/04/18 at 14:00 Amlodipine Besylate (Norvasc) 5 mg BID PO Last administered on 07/10/18 08:59; Admin Dose 5 MG; Start 07/07/18 at 15:00 Enoxaparin Sodium (Lovenox) 30 mg DAILY SC Last administered on 07/10/18 08:57; Admin Dose 30 MG; Start 07/09/18 at 09:00 Zinc Sulfate (Zinc Sulfate) 220 mg DAILY NGT Last administered on 07/10/18 14:09; Admin Dose 220 MG; Start 07/10/18 at 13:30 ROXANNA SOMERS NP Jul 10, 2018 15:15
[2018-07-10 20:40] VITALS: BP 141/78; PULSE 81; RESP 18
--- NOTE | 2018-07-10 21:02 | PN ---
Date/Time of Note Date/Time of Note DATE: 07/10/18 TIME: 21:01 Assessment/Plan Lines/Catheters IV Catheter Type (from Nrsg): Peripheral IV Gibson in Place (from Nrsg): No Assessment/Plan Assessment/Plan Peripheral vascular disease Renal failure Creatinine level stabilizing Plan for an angiogram possible angioplasty on Friday Subjective 24 Hr Interval Summary Constitutional: improved Pain Control: mild Exam/Review of Systems Vital Signs Vitals Vital Signs Date Temp Pulse Resp B/P (MAP) Pulse Ox O2 O2 Flow FiO2 Time Delivery Rate 07/10/18 99.0 81 18 141/78 96 20:40 (99) 07/10/18 Room Air 07:30 Intake and Output 07/09/18 07/09/18 07/10/18 1515:00 23:00 07:00 IntakeIntake Total 1050 ml 960 ml 1080 ml BalanceBalance 1050 ml 960 ml 1080 ml Exam Eyes: nl conjunctiva, EOMI, nl lids, nl sclera ENMT: nl external ears & nose, nl lips & teeth, nl nasal mucosa & septum, mucosa pink and moist Neck: supple, non-tender Respiratory: clear to auscultation, normal air movement Cardiovascular: regular rate and rhythm, nl pulses Gastrointestinal: soft, nl liver, spleen, non-tender Musculoskeletal: nl extremities to inspection, nl gait and stance Results Result Diagram: 07/10/18 0454 DONTRELL RODRIGUEZ MD Jul 10, 2018 21:02
[2018-07-11 02:00] VITALS: BP 129/64; PULSE 74; RESP 18
[2018-07-11] MEDS: PANTOPRAZOLE (EC) 40 MG TAB PO SCH (05:46)
[2018-07-11] MEDS: SOD CHLORIDE 0.9% 1,000 ML IV SCH ×3 (05:48→17:32)
[2018-07-11] MEDS: INSULIN ASPART [NOVOLOG] 3 ML PEN SC SCH ×4 (08:00→20:34)
[2018-07-11 08:50] VITALS: BP 149/82; PULSE 77
[2018-07-11] MEDS: CEFTRIAXONE 1 GM/50 ML (PMX) 50 ML IVPB SCH (09:01)
[2018-07-11] MEDS: AMLODIPINE 5 MG TAB PO SCH ×2 (09:02→20:34)
[2018-07-11] MEDS: LINAGLIPTIN 5 MG TABLET PO SCH (09:02)
[2018-07-11] MEDS: ZINC SULFATE 220 MG CAP NGT SCH (09:02)
[2018-07-11] MEDS: PENTOXIFYLLINE (SR) 400 MG TAB PO SCH ×3 (09:02→20:33)
[2018-07-11] MEDS: ENOXAPARIN 30 MG/0.3 ML SYG SC SCH (09:06)
--- NOTE | 2018-07-11 09:40 | PN ---
Date/Time of Note Date/Time of Note DATE: 07/11/18 TIME: 09:35 Assessment/Plan VTE Prophylaxis Risk score (from Nsg)>0 risk: 2 SCD applied (from Ns): No SCD contraindicated: low risk/ambulating Pharmacological prophylaxis: LMWH Lines/Catheters IV Catheter Type (from Nrs): Peripheral IV Urinary Cath still in place: No Assessment/Plan Hospital Course 1. Left foot cellulitis. Discoloration of 2 and 3 toes. S/p amputation of the left fourth digit and transmetatarsal amputation of the fifth digit. 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 On Xray soft tissue swelling. Vascular calcification consistent with atherosclerotic disease. Healing fracture at the base of the second metatarsal. 2. Anemia 3. Overweight 4. DANIELLE, creatinine 1.40 today from 1.97 on hospitalization. Pt creatinine was 1.73 in [facility] February 2018 and then return to normal 5. DM type II with diabetic neuropathy 6. Hypertension 7. Right foot sole wound 8. Peripheral vascular disease. On Duplex US 09/2017 Monophasic wave forms in bilateral posterior tibial arteries and dorsalis pedis arteries consistent with a significant bilateral infrapopliteal stenosis. Assessment/Plan -FeSo4 BID for [place] -pt might need a PICC line for mcc a.b after arteriogram. - MRI +Findings consistent with osteomyelitis at the fifth metatarsal amputation site. Findings consistent with osteomyelitis of the third toe distal, and probably middle and proximal phalanges. Findings likely representing osteomyelitis of the second toe distal phalanx. -angiogram possible angioplasty on Friday - cw Rocephin -wound care -We will also likely need amputation of the third toe per podiatry -Continue with pentoxifylline -cw clonidine and Norvasc for blood pressure -c/w NS 100 ml/hour - hold nephrotoxic agents - strict I's and O's - GI prophylaxis protonix PO Result Diagram: 07/11/18 0437 07/11/18436 Results 24hrs Laboratory Tests Test 07/10/18 12:17 07/10/18 17:09 07/10/18 21:08 07/11/18 04:37 Bedside Glucose 203 153 166 White Blood Count 8.0 # Red Blood Count 2.42 L Hemoglobin 7.7 L Hematocrit 22.2 L Mean Corpuscular 91.7 Volume Mean Corpuscular 31.8 Hemoglobin Mean Corpuscular 34.7 Hemoglobin Concent Red Cell 11.9 Distribution Width Platelet Count 263 # Mean Platelet Volume 9.5 Immature 0.900 H Granulocytes % Neutrophils % 71.2 Lymphocytes % 17.2 Monocytes % 7.5 Eosinophils % 2.8 Basophils % 0.4 Nucleated Red Blood 0.0 Cells % Immature 0.070 H Granulocytes # Neutrophils # 5.7 Lymphocytes # 1.4 Monocytes # 0.6 Eosinophils # 0.2 Basophils # 0.0 Nucleated Red Blood 0.0 Cells # Sodium Level 142 Potassium Level 4.0 Chloride Level 111 H Carbon Dioxide Level 24 Anion Gap 7 Blood Urea Nitrogen 19 Creatinine 1.40 H Est Glomerular 53 L Filtrat Rate mL/min Glucose Level 129 Calcium Level 8.7 Test 07/11/18 08:08 Bedside Glucose 121 Subjective 24 Hr Interval Summary Constitutional: no complaints, improved Musculoskeletal: bone/joint pain (while walking ) Exam/Review of Systems Exam Vitals Vital Signs Date Temp Pulse Resp B/P (MAP) Pulse Ox O2 O2 Flow FiO2 Time Delivery Rate 07/11/18 98.6 77 149/82 96 Room Air 08:50 (104) 07/11/18 18 02:00 Intake and Output 07/10/18 07/10/18 07/11/18 1515:00 23:00 07:00 IntakeIntake Total 750 ml 1200 ml 1840 ml BalanceBalance 750 ml 1200 ml 1840 ml Constitutional: alert, oriented Head: normocephalic Respiratory: clear to auscultation Cardiovascular: regular rate and rhythm Gastrointestinal: soft Musculoskeletal: swelling (ankles bilaterally), other (bilateral wounds) Results Results 24hrs Laboratory Tests Test 07/10/18 12:17 07/10/18 17:09 07/10/18 21:08 07/11/18 04:37 Bedside Glucose 203 153 166 White Blood Count 8.0 # Red Blood Count 2.42 L Hemoglobin 7.7 L Hematocrit 22.2 L Mean Corpuscular 91.7 Volume Mean Corpuscular 31.8 Hemoglobin Mean Corpuscular 34.7 Hemoglobin Concent Red Cell 11.9 Distribution Width Platelet Count 263 # Mean Platelet Volume 9.5 Immature 0.900 H Granulocytes % Neutrophils % 71.2 Lymphocytes % 17.2 Monocytes % 7.5 Eosinophils % 2.8 Basophils % 0.4 Nucleated Red Blood 0.0 Cells % Immature 0.070 H Granulocytes # Neutrophils # 5.7 Lymphocytes # 1.4 Monocytes # 0.6 Eosinophils # 0.2 Basophils # 0.0 Nucleated Red Blood 0.0 Cells # Sodium Level 142 Potassium Level 4.0 Chloride Level 111 H Carbon Dioxide Level 24 Anion Gap 7 Blood Urea Nitrogen 19 Creatinine 1.40 H Est Glomerular 53 L Filtrat Rate mL/min Glucose Level 129 Calcium Level 8.7 Test 07/11/18 08:08 Bedside Glucose 121 Medications Medication Current Medications Insulin Aspart (Novolog Insulin Pen) NOVOLOG *MODERATE* ALGORITHM WITH MEALS BEDTIME SC Last administered on 07/10/18 17:39; Admin Dose 2 UNIT; Start 07/04/18 at 08:00 Acetaminophen/ Hydrocodone Bitart ([place] (5/325)) 1 tab Q4H PRN PO MODERATE PAIN LEVEL 4-6; Start 07/04/18 at 01:30 Pantoprazole (Protonix Tab) 40 mg DAILY@06 PO Last administered on 07/11/18at 05:46; Admin Dose 40 MG; Start 07/04/18 at 06:00 Acetaminophen (Tylenol Tab) 650 mg Q6H PRN PO MILD PAIN(1-3)OR ELEVATED TEMP Last administered on 07/04/18at 21:28; Admin Dose 650 MG; Start 07/04/18 at 01:30 Clonidine (Catapres) 0.1 mg TID PO Last administered on 07/11/18at 09:02; Admin Dose 0.1 MG; Start 07/04/18 at 09:00 Clonidine (Catapres) 0.1 mg Q6H PRN PO ELEVATED BLOOD PRESSURE Last administered on 07/04/18at 01:47; Admin Dose 0.1 MG; Start 07/04/18 at 01:30 Ceftriaxone Sodium 50 ml @ 100 mls/hr Q24H IVPB Last administered on 07/11/18at 09:01; Admin Dose 100 MLS/HR; Start 07/04/18 at 09:00 Miscellaneous Information 1 ea NOTE XX ; Start 07/04/18 at 02:00 Glucose (Glutose) 15 gm Q15M PRN PO DECREASED GLUCOSE; Start 07/04/18 at 02:00 Glucose (Glutose) 22.5 gm Q15M PRN PO DECREASED GLUCOSE; Start 07/04/18 at 02:00 Dextrose (D50w Syringe) 25 ml Q15M PRN IV DECREASED GLUCOSE; Start 07/04/18 at 02:00 Dextrose (D50w Syringe) 50 ml Q15M PRN IV DECREASED GLUCOSE; Start 07/04/18 at 02:00 Glucagon (Glucagen) 1 mg Q15M PRN IM DECREASED GLUCOSE; Start 07/04/18 at 02:00 Glucose (Glutose) 15 gm Q15M PRN BUCCAL DECREASED GLUCOSE; Start 07/04/18 at 02:00 Bisacodyl (Dulcolax) 10 mg BID PRN PO CONSTIPATION; Start 07/04/18 at 01:30 Miscellaneous Information (Pending Santyl Order For Wound Care) This patient mora... PRN PRN XX WOUND CARE; Start 07/04/18 at 02:00 Pentoxifylline (Trental) 400 mg TID PO Last administered on 07/11/18 09:02; Admin Dose 400 MG; Start 07/04/18 at 21:00 Sodium Chloride 1,000 ml @ 100 mls/hr Q10H IV Last administered on 07/11/18 05:48; Admin Dose 100 MLS/HR; Start 07/04/18 at 14:00 Linagliptin (Tradjenta) 5 mg DAILY PO Last administered on 07/11/18 09:02; Admin Dose 5 MG; Start 07/04/18 at 14:00 Amlodipine Besylate (Norvasc) 5 mg BID PO Last administered on 07/11/18 09:02; Admin Dose 5 MG; Start 07/07/18 at 15:00 Enoxaparin Sodium (Lovenox) 30 mg DAILY SC Last administered on 07/11/18 09:06; Admin Dose 30 MG; Start 07/09/18 at 09:00 Zinc Sulfate (Zinc Sulfate) 220 mg DAILY NGT Last administered on 07/11/18 09:02; Admin Dose 220 MG; Start 07/10/18 at 13:30 TEODORO RIDER 16, 2019 09:40
[2018-07-11] MEDS: FERROUS SULFATE (EC) 325 MG TAB PO SCH (11:52)
--- NOTE | 2018-07-11 12:44 | PN ---
Date/Time of Note Date/Time of Note DATE: 07/11/18 TIME: 12:43 Assessment/Plan Lines/Catheters IV Catheter Type (from Nrsg): Peripheral IV Gibson in Place (from Nrsg): No Assessment/Plan Assessment/Plan Peripheral vascular disease Renal failure Creatinine level stabilizing 1.4 Plan for an angiogram possible angioplasty on Friday Subjective 24 Hr Interval Summary Constitutional: improved Pain Control: mild Exam/Review of Systems Vital Signs Vitals Vital Signs Date Temp Pulse Resp B/P (MAP) Pulse Ox O2 O2 Flow FiO2 Time Delivery Rate 07/11/18 98.6 77 149/82 96 Room Air 08:50 (104) 07/11/18 18 02:00 Intake and Output 07/10/18 07/10/18 07/11/18 1515:00 23:00 07:00 IntakeIntake Total 750 ml 1200 ml 1840 ml BalanceBalance 750 ml 1200 ml 1840 ml Exam Eyes: nl conjunctiva, EOMI, nl lids, nl sclera ENMT: nl external ears & nose, nl lips & teeth, nl nasal mucosa & septum, mucosa pink and moist Neck: supple, non-tender Respiratory: clear to auscultation, normal air movement Cardiovascular: regular rate and rhythm, nl pulses Gastrointestinal: soft, nl liver, spleen, non-tender Results Result Diagram: 07/11/18 0437 07/11/18 0437 DONTRELL RODRIGUEZ MD Jul 11, 2018 12:44
[2018-07-11 14:00] VITALS: BP 157/92; PULSE 77; RESP 18
--- NOTE | 2018-07-11 16:15 | CONS ---
Assessment/Plan Assessment/Plan Hospital Course (Demo Recall) ID PROGRESS NOTE CURRENT ABX: DAY # CEFTRIAXONE 07/11/1843607/11/18436 24H INTERVAL SUMMARY * Napping, opens eyes, no c/o, VSS, NAD, no fevers, chart reviewed MICRO/OTHER * 07/04/18 wound cx: WOUND CULTURE Final Organism 1 STAPHYLOCOCCUS AUREUS QUANTITY 2+ S AUREUS M.I.C. RX --------- --- CEFAZOLIN S CIPROFLOXACIN <=0.5 S CLINDAMYCIN <=0.25 S DOXYCYCLINE S ERYTHROMYCIN <=0.25 S LEVOFLOXACIN 0.25 S OXACILLIN 0.5 S PENICILLIN-G >=0.5 R RIFAMPIN <=0.5 S VANCOMYCIN <=0.5 S TRIMETHOPRIM/SULFAMETHOXAZOLE <=10 S PHYSICAL EXAMINATION: GENERAL: VSS HEENT: AT, NC, anicteric NECK: Supple, CHEST: Equal chest rise bilaterally, without dyspnea on observation HEART: Pulse RRR ABDOMEN: Soft / NT EXTREMITIES: Warm, dry / LEFT FOOT DSG C/D/I SKIN: No rash, no diaphoresis ID ASSESSMENT 52 yo M admit with: 1. Left foot HÉCTOR cellulitis 2. Diabetes 3. Diabetic neuropathy 4. Hypertension 5. Peripheral vascular disease ABX ALLERGIES: None to ABX INVASIVES: PIV CURRENT ABX: DAY # CEFTRIAXONE ID RECOMMENDATIONS/PLAN: 1. Continue current ABX 2. Pending angiogram with possible angioplasty, poss toe amputation Consultation Date/Type/Reason Admit Date/Time Jul 03, 2018 at 22:10 Initial Consult Date 07/04/18 Date/Time of Note DATE: 07/11/18 TIME: 16:15 Exam/Review of Systems Exam Vitals Vital Signs Date Temp Pulse Resp B/P (MAP) Pulse Ox O2 O2 Flow FiO2 Time Delivery Rate 07/11/18 98.6 77 149/82 96 Room Air 08:50 (104) 07/11/18 18 02:00 Intake and Output 07/10/18 07/10/18 07/11/18 1515:00 23:00 07:00 IntakeIntake Total 750 ml 1200 ml 1840 ml BalanceBalance 750 ml 1200 ml 1840 ml Results Result Diagram: 3/16/19 0437 07/11/18 0437 Results 24hrs Laboratory Tests Test 07/10/18 17:09 07/10/18 21:08 07/11/18 04:37 07/11/18 08:08 Bedside Glucose 153 166 121 White Blood Count 8.0 # Red Blood Count 2.42 L Hemoglobin 7.7 L Hematocrit 22.2 L Mean Corpuscular 91.7 Volume Mean Corpuscular 31.8 Hemoglobin Mean Corpuscular 34.7 Hemoglobin Concent Red Cell 11.9 Distribution Width Platelet Count 263 # Mean Platelet Volume 9.5 Immature 0.900 H Granulocytes % Neutrophils % 71.2 Lymphocytes % 17.2 Monocytes % 7.5 Eosinophils % 2.8 Basophils % 0.4 Nucleated Red Blood 0.0 Cells % Immature 0.070 H Granulocytes # Neutrophils # 5.7 Lymphocytes # 1.4 Monocytes # 0.6 Eosinophils # 0.2 Basophils # 0.0 Nucleated Red Blood 0.0 Cells # Sodium Level 142 Potassium Level 4.0 Chloride Level 111 H Carbon Dioxide Level 24 Anion Gap 7 Blood Urea Nitrogen 19 Creatinine 1.40 H Est Glomerular 53 L Filtrat Rate mL/min Glucose Level 129 Calcium Level 8.7 Test 07/11/18 12:16 Bedside Glucose 206 Medications Medication Current Medications Insulin Aspart (Novolog Insulin Pen) NOVOLOG *MODERATE* ALGORITHM WITH MEALS BEDTIME SC Last administered on 07/11/18at 12:20; Admin Dose 4 UNIT; Start 07/04/18 at 08:00 Acetaminophen/ Hydrocodone Bitart ([place] (5/325)) 1 tab Q4H PRN PO MODERATE PAIN LEVEL 4-6; Start 07/04/18 at 01:30 Pantoprazole (Protonix Tab) 40 mg DAILY@06 PO Last administered on 07/11/18at 05:46; Admin Dose 40 MG; Start 07/04/18 at 06:00 Acetaminophen (Tylenol Tab) 650 mg Q6H PRN PO MILD PAIN(1-3)OR ELEVATED TEMP Last administered on 07/04/18at 21:28; Admin Dose 650 MG; Start 07/04/18 at 01:30 Clonidine (Catapres) 0.1 mg TID PO Last administered on 07/11/18at 13:39; Admin Dose 0.1 MG; Start 07/04/18 at 09:00 Clonidine (Catapres) 0.1 mg Q6H PRN PO ELEVATED BLOOD PRESSURE Last administered on 07/04/18at 01:47; Admin Dose 0.1 MG; Start 07/04/18 at 01:30 Ceftriaxone Sodium 50 ml @ 100 mls/hr Q24H IVPB Last administered on 07/11/18 09:01; Admin Dose 100 MLS/HR; Start 07/04/18 at 09:00 Miscellaneous Information 1 ea NOTE XX ; Start 07/04/18 at 02:00 Glucose (Glutose) 15 gm Q15M PRN PO DECREASED GLUCOSE; Start 07/04/18 at 02:00 Glucose (Glutose) 22.5 gm Q15M PRN PO DECREASED GLUCOSE; Start 07/04/18 at 02:00 Dextrose (D50w Syringe) 25 ml Q15M PRN IV DECREASED GLUCOSE; Start 07/04/18 at 02:00 Dextrose (D50w Syringe) 50 ml Q15M PRN IV DECREASED GLUCOSE; Start 07/04/18 at 02:00 Glucagon (Glucagen) 1 mg Q15M PRN IM DECREASED GLUCOSE; Start 07/04/18 at 02:00 Glucose (Glutose) 15 gm Q15M PRN BUCCAL DECREASED GLUCOSE; Start 07/04/18 at 02:00 Bisacodyl (Dulcolax) 10 mg BID PRN PO CONSTIPATION; Start 07/04/18 at 01:30 [facility]isc[facility] This patient mora... PRN PRN XX WOUND CARE; Start 07/04/18 at 02:00 Pentoxifylline (Trental) 400 mg TID PO Last administered on 07/11/18at 13:39; Admin Dose 400 MG; Start 07/04/18 at 21:00 Sodium Chloride 1,000 ml @ 100 mls/hr Q10H IV Last administered on 07/11/18at 05:48; Admin Dose 100 MLS/HR; Start 07/04/18 at 14:00 Linagliptin (Tradjenta) 5 mg DAILY PO Last administered on 07/11/18 09:02; Admin Dose 5 MG; Start 07/04/18 at 14:00 Amlodipine Besylate (Norvasc) 5 mg BID PO Last administered on 07/11/18 09:02; Admin Dose 5 MG; Start 07/07/18 at 15:00 Enoxaparin Sodium (Lovenox) 30 mg DAILY SC Last administered on 07/11/18at 09:06; Admin Dose 30 MG; Start 07/09/18 at 09:00 Zinc Sulfate (Zinc Sulfate) 220 mg DAILY NGT Last administered on 07/11/18at 09:02; Admin Dose 220 MG; Start 07/10/18 at 13:30 Ferrous Sulfate (Ferrous Sulfate (Ec)) 325 mg DAILY PO Last administered on 07/11/18at 11:52; Admin Dose 325 MG; Start 07/11/18 at 10:00 MAIA CURRY NP Jul 11, 2018 16:15
[2018-07-11 20:00] VITALS: BP 113/66; PULSE 75; RESP 19
[2018-07-12 02:00] VITALS: BP 118/62; PULSE 75; RESP 18
[2018-07-12] MEDS: SOD CHLORIDE 0.9% 1,000 ML IV SCH ×2 (03:29→17:37)
[2018-07-12] MEDS: PANTOPRAZOLE (EC) 40 MG TAB PO SCH (06:25)
[2018-07-12] MEDS: INSULIN ASPART [NOVOLOG] 3 ML PEN SC SCH ×4 (07:58→20:52)
[2018-07-12 08:34] VITALS: BP 157/85; RESP 18
[2018-07-12] MEDS: ENOXAPARIN 30 MG/0.3 ML SYG SC SCH (09:00)
[2018-07-12] MEDS: PENTOXIFYLLINE (SR) 400 MG TAB PO SCH ×3 (09:24→20:52)
[2018-07-12] MEDS: ZINC SULFATE 220 MG CAP NGT SCH (09:24)
[2018-07-12] MEDS: LINAGLIPTIN 5 MG TABLET PO SCH (09:25)
[2018-07-12] MEDS: FERROUS SULFATE (EC) 325 MG TAB PO SCH (09:25)
[2018-07-12] MEDS: CEFTRIAXONE 1 GM/50 ML (PMX) 50 ML IVPB SCH (09:25)
[2018-07-12] MEDS: AMLODIPINE 5 MG TAB PO SCH ×2 (09:25→20:52)
[2018-07-12 15:21] VITALS: BP 148/81; PULSE 81; RESP 17
[2018-07-12] MEDS: FUROSEMIDE 20 MG INJ IV SCH (17:33)
--- NOTE | 2018-07-12 18:20 | PN ---
Date/Time of Note Date/Time of Note DATE: 07/12/18 TIME: 18:19 Assessment/Plan VTE Prophylaxis Risk score (from Ns)>0 risk: 2 SCD applied (from [facility]): No SCD contraindicated: other Pharmacological prophylaxis: other Pharm contraindication: other Lines/Catheters IV Catheter Type (from [facility]): Peripheral IV Urinary Cath still in place: No Assessment/Plan Hospital Course 1. Left foot cellulitis. Discoloration of 2 and 3 toes. S/p amputation of the left fourth digit and transmetatarsal amputation of the fifth digit. 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 On Xray soft tissue swelling. Vascular calcification consistent with atherosclerotic disease. 2. Anemia 3. Overweight 4. DANIELLE, creatinine 5. DM type II with diabetic neuropathy 6. Hypertension 7. Right foot sole wound 8. Peripheral vascular disease. On Duplex US 09/2017 Monophasic wave forms in bilateral posterior tibial arteries and dorsalis pedis arteries consistent with a significant bilateral infrapopliteal stenosis. plan per id and vascular lasix Result Diagram: 07/12/18 0430 07/12/18 0430 Results 24hrs Laboratory Tests Test 07/11/18 20:32 07/12/18 04:30 07/12/18 07:58 07/12/18 12:30 Bedside Glucose 180 138 202 White Blood Count 6.9 Red Blood Count 1.98 L Hemoglobin 6.4 *L Hematocrit 18.3 L Mean Corpuscular 92.4 Volume Mean Corpuscular 32.3 Hemoglobin Mean Corpuscular 35.0 Hemoglobin Concent Red Cell 12.1 Distribution Width Platelet Count 236 Mean Platelet Volume 9.7 Immature 0.900 H Granulocytes % Neutrophils % 70.4 Segmented 78 H Neutrophils % (Manual) Band Neutrophils % 1 (Manual) Lymphocytes % 19.0 Lymphocytes % 18 (Manual) Monocytes % 7.1 Monocytes % (Manual) 2 Eosinophils % 2.3 Eosinophils % 1 (Manual) Basophils % 0.3 Nucleated Red Blood 0.0 Cells % Immature 0.060 H Granulocytes # Neutrophils # 4.9 Neutrophils # 5.4 (Manual) Band Neutrophils # 0.0 Lymphocytes (Manual) 1.2 Lymphocytes # 1.3 Monocytes # 0.5 Monocytes # (Manual) 0.1 L Eosinophils # 0.2 Basophils # 0.0 Nucleated Red Blood 0.0 Cells # Platelet Estimate NORMAL Polychromasia 2+ Poikilocytosis 1+ Anisocytosis 1+ Microcytosis 1+ Sodium Level 140 Potassium Level 3.9 Chloride Level 111 H Carbon Dioxide Level 23 Anion Gap 6 Blood Urea Nitrogen 17 Creatinine 1.32 H Est Glomerular 57 L Filtrat Rate mL/min Glucose Level 140 Calcium Level 8.2 L Test 07/12/18 17:35 Bedside Glucose 182 Subjective 24 Hr Interval Summary Subjective hx not possible: other (no gi bleed,leg edema+) Cardiovascular: no complaints Gastrointestinal: no complaints Genitourinary: no complaints Musculoskeletal: no complaints Exam/Review of Systems Exam Vitals Vital Signs Date Temp Pulse Resp B/P (MAP) Pulse Ox O2 O2 Flow FiO2 Time Delivery Rate 07/12/18 98.5 81 17 148/81 95 Room Air 15:21 (103) Intake and Output 07/11/18 07/11/18 07/12/18 1515:00 23:00 07:00 IntakeIntake Total 970 ml 1320 ml 1430 ml OutputOutput Total 600 ml BalanceBalance 370 ml 1320 ml 1430 ml Neck: supple Respiratory: clear to auscultation Cardiovascular: regular rate and rhythm, diastolic murmur Musculoskeletal: nl extremities to inspection Results Results 24hrs Laboratory Tests Test 07/11/18 20:32 07/12/18 04:30 07/12/18 07:58 07/12/18 12:30 Bedside Glucose 180 138 202 White Blood Count 6.9 Red Blood Count 1.98 L Hemoglobin 6.4 *L Hematocrit 18.3 L Mean Corpuscular 92.4 Volume Mean Corpuscular 32.3 Hemoglobin Mean Corpuscular 35.0 Hemoglobin Concent Red Cell 12.1 Distribution Width Platelet Count 236 Mean Platelet Volume 9.7 Immature 0.900 H Granulocytes % Neutrophils % 70.4 Segmented 78 H Neutrophils % (Manual) Band Neutrophils % 1 (Manual) Lymphocytes % 19.0 Lymphocytes % 18 (Manual) Monocytes % 7.1 Monocytes % (Manual) 2 Eosinophils % 2.3 Eosinophils % 1 (Manual) Basophils % 0.3 Nucleated Red Blood 0.0 Cells % Immature 0.060 H Granulocytes # Neutrophils # 4.9 Neutrophils # 5.4 (Manual) Band Neutrophils # 0.0 Lymphocytes (Manual) 1.2 Lymphocytes # 1.3 Monocytes # 0.5 Monocytes # (Manual) 0.1 L Eosinophils # 0.2 Basophils # 0.0 Nucleated Red Blood 0.0 Cells # Platelet Estimate NORMAL Polychromasia 2+ Poikilocytosis 1+ Anisocytosis 1+ Microcytosis 1+ Sodium Level 140 Potassium Level 3.9 Chloride Level 111 H Carbon Dioxide Level 23 Anion Gap 6 Blood Urea Nitrogen 17 Creatinine 1.32 H Est Glomerular 57 L Filtrat Rate mL/min Glucose Level 140 Calcium Level 8.2 L Test 07/12/18 17:35 Bedside Glucose 182 Medications Medication Current Medications Insulin Aspart (Novolog Insulin Pen) NOVOLOG *MODERATE* ALGORITHM WITH MEALS BEDTIME SC Last administered on 07/12/18at 17:42; Admin Dose 4 UNIT; Start 07/04/18 at 08:00 Acetaminophen/ Hydrocodone Bitart ([place] (5/325)) 1 tab Q4H PRN PO MODERATE PAIN LEVEL 4-6; Start 07/04/18 at 01:30 Pantoprazole (Protonix Tab) 40 mg DAILY@06 PO Last administered on 07/12/18at 06:25; Admin Dose 40 MG; Start 07/04/18 at 06:00 Acetaminophen (Tylenol Tab) 650 mg Q6H PRN PO MILD PAIN(1-3)OR ELEVATED TEMP Last administered on 07/04/18at 21:28; Admin Dose 650 MG; Start 07/04/18 at 01:30 Clonidine (Catapres) 0.1 mg TID PO Last administered on 07/12/18at 12:32; Admin Dose 0.1 MG; Start 07/04/18 at 09:00 Clonidine (Catapres) 0.1 mg Q6H PRN PO ELEVATED BLOOD PRESSURE Last administered on 07/04/18at 01:47; Admin Dose 0.1 MG; Start 07/04/18 at 01:30 Ceftriaxone Sodium 50 ml @ 100 mls/hr Q24H IVPB Last administered on 07/12/18at 09:25; Admin Dose 100 MLS/HR; Start 07/04/18 at 09:00 Miscellaneous Information 1 ea NOTE XX ; Start 07/04/18 at 02:00 Glucose (Glutose) 15 gm Q15M PRN PO DECREASED GLUCOSE; Start 07/04/18 at 02:00 Glucose (Glutose) 22.5 gm Q15M PRN PO DECREASED GLUCOSE; Start 07/04/18 at 02:00 Dextrose (D50w Syringe) 25 ml Q15M PRN IV DECREASED GLUCOSE; Start 07/04/18 at 02:00 Dextrose (D50w Syringe) 50 ml Q15M PRN IV DECREASED GLUCOSE; Start 07/04/18 at 02:00 Glucagon (Glucagen) 1 mg Q15M PRN IM DECREASED GLUCOSE; Start 07/04/18 at 02:00 Glucose (Glutose) 15 gm Q15M PRN BUCCAL DECREASED GLUCOSE; Start 07/04/18 at 02:00 Bisacodyl (Dulcolax) 10 mg BID PRN PO CONSTIPATION; Start 07/04/18 at 01:30 Miscellaneous Information (Pending Santyl Order For Wound Care) This patient mora... PRN PRN XX WOUND CARE; Start 07/04/18 at 02:00 Pentoxifylline (Trental) 400 mg TID PO Last administered on 07/12/18at 12:30; Admin Dose 400 MG; Start 07/04/18 at 21:00 Sodium Chloride 1,000 ml @ 25 mls/hr Q24H IV Last administered on 07/12/18at 17:37; Admin Dose 25 MLS/HR; Start 07/04/18 at 14:00 Linagliptin (Tradjenta) 5 mg DAILY PO Last administered on 07/12/18 09:25; Admin Dose 5 MG; Start 07/04/18 at 14:00 Amlodipine Besylate (Norvasc) 5 mg BID PO Last administered on 07/12/18 09:25; Admin Dose 5 MG; Start 07/07/18 at 15:00 Enoxaparin Sodium (Lovenox) 30 mg DAILY SC Last administered on 07/11/18 09:06; Admin Dose 30 MG; Start 07/09/18 at 09:00 Zinc Sulfate (Zinc Sulfate) 220 mg DAILY NGT Last administered on 07/12/18 09:24; Admin Dose 220 MG; Start 07/10/18 at 13:30 Ferrous Sulfate (Ferrous Sulfate (Ec)) 325 mg DAILY PO Last administered on 07/12/18 09:25; Admin Dose 325 MG; Start 07/11/18 at 10:00 Furosemide (Lasix) 20 mg BID DIURETICS IV Last administered on 07/12/18 17:33; Admin Dose 20 MG; Start 07/12/18 at 18:00 KEMAL AZAR MD Jul 12, 2018 18:20
--- NOTE | 2018-07-12 19:29 | PN ---
Date/Time of Note Date/Time of Note DATE: 07/12/18 TIME: 19:28 Assessment/Plan Lines/Catheters IV Catheter Type (from Nrsg): Peripheral IV Gibson in Place (from Nrsg): No Assessment/Plan Assessment/Plan Peripheral vascular disease Renal failure Creatinine level stabilizing 1.32 Plan for an angiogram angioplasty on Friday Subjective 24 Hr Interval Summary Constitutional: improved Pain Control: mild Exam/Review of Systems Vital Signs Vitals Vital Signs Date Temp Pulse Resp B/P (MAP) Pulse Ox O2 O2 Flow FiO2 Time Delivery Rate 07/12/18 98.5 81 17 148/81 95 Room Air 15:21 (103) Intake and Output 07/11/18 07/11/18 07/12/18 1515:00 23:00 07:00 IntakeIntake Total 970 ml 1320 ml 1430 ml OutputOutput Total 600 ml BalanceBalance 370 ml 1320 ml 1430 ml Exam Eyes: nl conjunctiva, EOMI, nl lids, nl sclera ENMT: nl external ears & nose, nl lips & teeth, nl nasal mucosa & septum, mucosa pink and moist Neck: supple, non-tender Respiratory: clear to auscultation, normal air movement Cardiovascular: regular rate and rhythm, nl pulses Gastrointestinal: soft, nl liver, spleen, non-tender Results Result Diagram: 07/12/1842907/12/18429 DONTRELL RODRIGUEZ MD Jul 12, 2018 19:29
[2018-07-12 20:00] VITALS: BP 147/81; PULSE 77; RESP 19
[2018-07-13] VITALS (16 sets, daily range): BP systolic 142–177; BP diastolic 73–99; PULSE 80–121; RESP 17–21
[2018-07-13] MEDS: PANTOPRAZOLE (EC) 40 MG TAB PO SCH (05:00)
[2018-07-13] MEDS: FUROSEMIDE 20 MG INJ IV SCH (05:13)
[2018-07-13] MEDS: ZINC SULFATE 220 MG CAP NGT SCH (08:12)
[2018-07-13] MEDS: FERROUS SULFATE (EC) 325 MG TAB PO SCH (08:12)
[2018-07-13] MEDS: LINAGLIPTIN 5 MG TABLET PO SCH (08:12)
[2018-07-13] MEDS: AMLODIPINE 5 MG TAB PO SCH ×2 (08:12→21:38)
[2018-07-13] MEDS: PENTOXIFYLLINE (SR) 400 MG TAB PO SCH ×3 (08:12→22:37)
[2018-07-13] MEDS: ENOXAPARIN 30 MG/0.3 ML SYG SC SCH (08:13)
[2018-07-13] MEDS: CEFTRIAXONE 1 GM/50 ML (PMX) 50 ML IVPB SCH (08:42)
[2018-07-13] MEDS: INSULIN ASPART [NOVOLOG] 3 ML PEN SC SCH ×4 (08:44→21:00)
--- NOTE | 2018-07-13 13:27 | CONS ---
Assessment/Plan Assessment/Plan Hospital Course (Demo Recall) No acute events overnight patient is alert, feels good Antimicrobials: Rocephin Micro: wound cx + HÉCTOR PHYSICAL EXAMINATION: GENERAL: Well-nourished, well-developed 52-year-old man who is awake, in no distress. HEENT: Head atraumatic, normocephalic. NECK: Supple. CHEST: Rise symmetrical. Breath sounds clear. HEART: S1, S2. ABDOMEN: Soft, bowel tones present. EXTREMITIES: Left foot erythema, edema and pressure sores on his third, second toe, right foot with plantar necrotic skin breakdown. Assessment: 1. Left foot HÉCTOR cellulitis 2. Diabetes 3. Diabetic neuropathy 4. Hypertension 5. Peripheral vascular disease Plan: Patient remains stable, continue antibiotics, pending angiogram with possible angioplasty, poss toe amputation Consultation Date/Type/Reason Admit Date/Time Jul 03, 2018 at 22:10 Initial Consult Date 07/04/18 Type of Consult id Date/Time of Note DATE: 07/13/18 TIME: 13:27 Exam/Review of Systems Exam Vitals Vital Signs Date Temp Pulse Resp B/P (MAP) Pulse Ox O2 O2 Flow FiO2 Time Delivery Rate 07/13/18 88 152/73 11:00 (99) 07/13/18 98.2 17 93 Room Air 08:24 Intake and Output 07/12/18 07/12/18 07/13/18 1414:59 22:59 06:59 IntakeIntake Total 550 ml 1050 ml 200 ml OutputOutput Total 300 ml BalanceBalance 550 ml 750 ml 200 ml Results Result Diagram: 07/12/18 0430 07/13/18 0557 Results 24hrs Laboratory Tests Test 07/12/18 17:35 07/12/18 20:50 07/13/18 05:57 07/13/18 07:36 Bedside Glucose 182 122 Sodium Level 142 Potassium Level 3.8 Chloride Level 106 Carbon Dioxide 26 Level Anion Gap 10 Blood Urea 18 Nitrogen Creatinine 1.51 H Est Glomerular 49 L Filtrat Rate mL/min Glucose Level 128 Calcium Level 8.9 Lab Scanned BLOOD TRANSFUSIO Report N Test 07/13/18 08:43 07/13/18 12:56 Bedside Glucose 123 123 Medications Medication Current Medications Acetaminophen/ Hydrocodone Bitart ([place] (5/325)) 1 tab Q4H PRN PO MODERATE PA IN LEVEL 4-6; Start 07/04/18 at 01:30 Pantoprazole (Protonix Tab) 40 mg DAILY@06 PO Last administered on 07/12/18at 06:25; Admin Dose 40 MG; Start 07/04/18 at 06:00 Acetaminophen (Tylenol Tab) 650 mg Q6H PRN PO MILD PAIN(1-3)OR ELEVATED TEMP Last administered on 07/04/18at 21:28; Admin Dose 650 MG; Start 07/04/18 at 01:30 Clonidine (Catapres) 0.1 mg TID PO Last administered on 07/12/18at 20:52; Admin Dose 0.1 MG; Start 07/04/18 at 09:00 Clonidine (Catapres) 0.1 mg Q6H PRN PO ELEVATED BLOOD PRESSURE Last administered on 07/04/18at 01:47; Admin Dose 0.1 MG; Start 07/04/18 at 01:30 Ceftriaxone Sodium 50 ml @ 100 mls/hr Q24H IVPB Last administered on 07/13/18at 08:42; Admin Dose 100 MLS/HR; Start 07/04/18 at 09:00 Miscellaneous Information 1 ea NOTE XX ; Start 07/04/18 at 02:00 Glucose (Glutose) 15 gm Q15M PRN PO DECREASED GLUCOSE; Start 07/04/18 at 02:00 Glucose (Glutose) 22.5 gm Q15M PRN PO DECREASED GLUCOSE; Start 07/04/18 at 02:00 Dextrose (D50w Syringe) 25 ml Q15M PRN IV DECREASED GLUCOSE; Start 07/04/18 at 02:00 Dextrose (D50w Syringe) 50 ml Q15M PRN IV DECREASED GLUCOSE; Start 07/04/18 at 02:00 Glucagon (Glucagen) 1 mg Q15M PRN IM DECREASED GLUCOSE; Start 07/04/18 at 02:00 Glucose (Glutose) 15 gm Q15M PRN BUCCAL DECREASED GLUCOSE; Start 07/04/18 at 02:00 Bisacodyl (Dulcolax) 10 mg BID PRN PO CONSTIPATION; Start 07/04/18 at 01:30 Miscellaneous Information (Pending [facility] Order For Wound Care) This patient mora... PRN PRN XX WOUND CARE; Start 07/04/18 at 02:00 Pentoxifylline (Trental) 400 mg TID PO Last administered on 07/12/18 20:52; Admin Dose 400 MG; Start 07/04/18 at 21:00 Linagliptin (Tradjenta) 5 mg DAILY PO Last administered on 07/12/18 09:25; Admin Dose 5 MG; Start 07/04/18 at 14:00 Amlodipine Besylate (Norvasc) 5 mg BID PO Last administered on 07/12/18 20:52; Admin Dose 5 MG; Start 07/07/18 at 15:00 Enoxaparin Sodium (Lovenox) 30 mg DAILY SC Last administered on 07/11/18 09:06; Admin Dose 30 MG; Start 07/09/18 at 09:00 Zinc Sulfate (Zinc Sulfate) 220 mg DAILY NGT Last administered on 07/12/18 09:24; Admin Dose 220 MG; Start 07/10/18 at 13:30 Ferrous Sulfate (Ferrous Sulfate (Ec)) 325 mg DAILY PO Last administered on 07/12/18 09:25; Admin Dose 325 MG; Start 07/11/18 at 10:00 Insulin Aspart (Novolog Insulin Pen) NOVOLOG *MODERATE* ALGORITHM Q4 SC ; Start 07/13/18 at 09:00 ROXANNA SOMERS NP Jul 13, 2018 13:27
--- NOTE | 2018-07-13 13:27 | PN ---
Date/Time of Note Date/Time of Note DATE: 07/13/18 TIME: 13:24 Assessment/Plan VTE Prophylaxis Risk score (from Nsg)>0 risk: 4 SCD applied (from Ns): No SCD contraindicated: low risk/ambulating Pharmacological prophylaxis: NA/contraindicated Pharm contraindication: low risk/ambulating Lines/Catheters IV [facility]from [facility] Peripheral IV Urinary Cath still in place: No Assessment/Plan Hospital Course Hospital Course 1. Left foot cellulitis. Discoloration of 2 and 3 toes. S/p amputation of the left fourth digit and transmetatarsal amputation of the fifth digit. 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 On Xray soft tissue swelling. Vascular calcification consistent with atherosclerotic disease. Also noted to have right sole of the foot blackish discoloration 2. Anemia 3. Overweight 4. DANIELLE, creatinine 1.97. Pt creatinine was 1.73 in [facility] February 2018 and then return to normal. Cr had been improving 5. DM type II with diabetic neuropathy 6. Hypertension 7. Right foot sole wound 8. Peripheral vascular disease. On Duplex US 09/2017 Monophasic wave forms in bilateral posterior tibial arteries and dorsalis pedis arteries consistent with a significant bilateral infrapopliteal stenosis. 9 Anemia Plan - MRI +Findings consistent with osteomyelitis at the fifth metatarsal amputation site. Findings consistent with osteomyelitis of the third toe distal, and probably middle and proximal phalanges. Findings likely representing osteomyelitis of the second toe distal phalanx. - aortogram today -Then will determine with Dr. Coronado for possible surgery -Hold Lasix in order to prevent contrast nephropathy - cw Rocephin -Continue with pentoxifylline -cwWith clonidine and Norvasc for blood pressure -cw with IV iron - hold nephrotoxic agents strict I's and O's - recheck Hb - mucomist - GI prophylaxsis Result Diagram: 07/12/18 0430 07/13/18 0557 Results 24hrs Laboratory Tests Test 07/12/18 17:35 07/12/18 20:50 07/13/18 05:57 07/13/18 07:36 Bedside Glucose 182 122 Sodium Level 142 Potassium Level 3.8 Chloride Level 106 Carbon Dioxide 26 Level Anion Gap 10 Blood Urea 18 Nitrogen Creatinine 1.51 H Est Glomerular 49 L Filtrat Rate mL/min Glucose Level 128 Calcium Level 8.9 Lab Scanned BLOOD TRANSFUSIO Report N Test 07/13/18 08:43 07/13/18 12:56 Bedside Glucose 123 123 Subjective 24 Hr Interval Summary Free Text/Dictation Going for angiogram today with Dr. Jono Dhaliwal Exam/Review of Systems Exam Vitals Vital Signs Date Temp Pulse Resp B/P (MAP) Pulse Ox O2 O2 Flow FiO2 Time Delivery Rate 07/13/18 88 152/73 11:00 (99) 07/13/18 98.2 17 93 Room Air 08:24 Intake and Output 07/12/18 07/12/18 07/13/18 1515:00 23:00 07:00 IntakeIntake Total 550 ml 1050 ml 200 ml OutputOutput Total 300 ml BalanceBalance 550 ml 750 ml 200 ml Exam Neck: supple Respiratory: clear to auscultation Cardiovascular: regular rate and rhythm, diastolic murmur Musculoskeletal: nl extremities to inspection XTREMITIES: Left foot erythema, edema and pressure sores on his third, second toe, right foot with plantar necrotic skin break Right sole has blackish discoloration near on fourth and fifth metatarsal Results Results 24hrs Laboratory Tests Test 07/12/18 17:35 07/12/18 20:50 07/13/18 05:57 07/13/18 07:36 Bedside Glucose 182 122 Sodium Level 142 Potassium Level 3.8 Chloride Level 106 Carbon Dioxide 26 Level Anion Gap 10 Blood Urea 18 Nitrogen Creatinine 1.51 H Est Glomerular 49 L Filtrat Rate mL/min Glucose Level 128 Calcium Level 8.9 Lab Scanned BLOOD TRANSFUSIO Report N Test 07/13/18 08:43 07/13/18 12:56 Bedside Glucose 123 123 Medications Medication Current Medications Acetaminophen/ Hydrocodone Bitart ([place] (5/325)) 1 tab Q4H PRN PO MODERATE PAIN LEVEL 4-6; Start 07/04/18 at 01:30 Pantoprazole (Protonix Tab) 40 mg DAILY@06 PO Last administered on 07/12/18at 06 :25; Admin Dose 40 MG; Start 07/04/18 at 06:00 Acetaminophen (Tylenol Tab) 650 mg Q6H PRN PO MILD PAIN(1-3)OR ELEVATED TEMP Last administered on 07/04/18at 21:28; Admin Dose 650 MG; Start 07/04/18 at 01:30 Clonidine (Catapres) 0.1 mg TID PO Last administered on 07/12/18at 20:52; Admin Dose 0.1 MG; Start 07/04/18 at 09:00 Clonidine (Catapres) 0.1 mg Q6H PRN PO ELEVATED BLOOD PRESSURE Last administered on 07/04/18at 01:47; Admin Dose 0.1 MG; Start 07/04/18 at 01:30 Ceftriaxone Sodium 50 ml @ 100 mls/hr Q24H IVPB Last administered on 07/13/18at 08:42; Admin Dose 100 MLS/HR; Start 07/04/18 at 09:00 Miscellaneous Information 1 ea NOTE XX ; Start 07/04/18 at 02:00 Glucose (Glutose) 15 gm Q15M PRN PO DECREASED GLUCOSE; Start 07/04/18 at 02:00 Glucose (Glutose) 22.5 gm Q15M PRN PO DECREASED GLUCOSE; Start 07/04/18 at 02:00 Dextrose (D50w Syringe) 25 ml Q15M PRN IV DECREASED GLUCOSE; Start 07/04/18 at 0 2:00 Dextrose (D50w Syringe) 50 ml Q15M PRN IV DECREASED GLUCOSE; Start 07/04/18 at 02:00 Glucagon (Glucagen) 1 mg Q15M PRN IM DECREASED GLUCOSE; Start 07/04/18 at 02:00 Glucose (Glutose) 15 gm Q15M PRN BUCCAL DECREASED GLUCOSE; Start 07/04/18 at 02:00 Bisacodyl (Dulcolax) 10 mg BID PRN PO CONSTIPATION; Start 07/04/18 at 01:30 Miscellaneous Information (Pending [facility] Order For Wound Care) This patient mora... PRN PRN XX WOUND CARE; Start 07/04/18 at 02:00 Pentoxifylline (Trental) 400 mg TID PO Last administered on 07/12/18at 20:52; Admin Dose 400 MG; Start 07/04/18 at 21:00 Sodium Chloride 1,000 ml @ 25 mls/hr Q24H IV Last administered on 07/12/18at 17:37; Admin Dose 25 MLS/HR; Start 07/04/18 at 14:00 Linagliptin (Tradjenta) 5 mg DAILY PO Last administered on 07/12/18at 09:25; Admin Dose 5 MG; Start 07/04/18 at 14:00 Amlodipine Besylate (Norvasc) 5 mg BID PO Last administered on 07/12/18at 20:52; Admin Dose 5 MG; Start 07/07/18 at 15:00 Enoxaparin Sodium (Lovenox) 30 mg DAILY SC Last administered on 07/11/18at 09:06; Admin Dose 30 MG; Start 07/09/18 at 09:00 Zinc Sulfate (Zinc Sulfate) 220 mg DAILY NGT Last administered on 07/12/18at 09:24; Admin Dose 220 MG; Start 07/10/18 at 13:30 Ferrous Sulfate (Ferrous Sulfate (Ec)) 325 mg DAILY PO Last administered on 07/12/18at 09:25; Admin Dose 325 MG; Start 07/11/18 at 10:00 Furosemide (Lasix) 20 mg BID DIURETICS IV Last administered on 07/13/18at 05:13; Admin Dose 20 MG; Start 07/12/18 at 18:00 Insulin Aspart (Novolog Insulin Pen) NOVOLOG *MODERATE* ALGORITHM Q4 SC ; Start 07/13/18 at 09:00 GINA SUTTON MD Jul 13, 2018 13:27
[2018-07-13] MEDS ORDERED: LIDOCAINE 1% (MDV) 20 ML INJ ONE (15:07)
[2018-07-13] MEDS ORDERED: IODIXANOL LOCM 100 ML BTL ONE ×2 (15:07)
[2018-07-13] MEDS ORDERED: hydrALAzine 20 MG INJ ONE ×2 (15:08→16:55)
--- NOTE | 2018-07-13 15:15 | OPR ---
Date/Time of Note Date/Time of Note DATE: 07/13/18 TIME: 15:09 Operative Report Procedure Date: Jul 13, 2018 Preoperative Diagnosis Peripheral vascular disease Foot ulceration Postoperative Diagnosis Same Operation/Procedure Performed Abdominal aortogram Third order degree angiogram left lower extremity Ultrasound guidance into the central artery Fluoroscopy Moderate sedation 1 hour Surgeon see signature line [employer] Machine Tender None Anesthesia Type: other Estimated Blood Loss: none Transfusion none Specimen None Grafts/Implants none Complications none Pt Condition Post Procedure: stable Disposition: PACU Procedure Description Sent was placed in supine position prepped and draped in usual sterile fashion timeout was called and I started Percent lidocaine was used throughout the operation for local anesthesia Under ultrasonic guidance access was gained in the right common femoral artery guidewire was advanced through without any difficulties [employer] 035 wire was advanced followed by a short 5 Sinhala sheath followed by a rim catheter into the abdominal aorta aortogram was done with runoff The catheter was passed from the right to left and a third order degree angiogram was done by parking the catheter in the left popliteal artery Ending Abdominal aorta normal Bilateral common iliac arteries normal Bilateral internal iliac arteries normal Bilateral external iliac arteries normal Bilateral common femoral arteries normal Bilateral profunda normal Bilateral superficial femoral arteries normal with a patent stent Bilateral popliteal arteries normal Patient had bilateral anterior tibial artery subtotal occlusions Lateral peroneal arteries were patent proximally about 2 mm distally about 1 mm with minimal disease Bilateral posterior tibial arteries were patent and large vessels about [address] to the ankle and into the midfoot with good brisk flow At this time the procedure was terminated patient will be continued to get local wound care and antibiotics since the peripheral vascular disease is minimal at this time DONTRELL RODRIGUEZ MD Jul 13, 2018 15:15
[2018-07-13] MEDS ORDERED: hydrALAzine 20 MG INJ IV ONE (16:45)
[2018-07-13] MEDS: ACETYLCYSTEINE 600 MG CAP PO SCH (21:38)
[2018-07-14] VITALS (11 sets, daily range): BP systolic 116–156; BP diastolic 68–84; PULSE 76–102; RESP 17–18
[2018-07-14] MEDS: INSULIN ASPART [NOVOLOG] 3 ML PEN SC SCH ×6 (00:23→20:13)
[2018-07-14] MEDS: ACETAMINOPHEN 325 MG TAB PO PRN (03:51)
[2018-07-14] MEDS: PANTOPRAZOLE (EC) 40 MG TAB PO SCH (06:19)
[2018-07-14] MEDS: PENTOXIFYLLINE (SR) 400 MG TAB PO SCH ×3 (08:54→20:07)
[2018-07-14] MEDS: FERROUS SULFATE (EC) 325 MG TAB PO SCH (08:54)
[2018-07-14] MEDS: ZINC SULFATE 220 MG CAP NGT SCH (08:54)
[2018-07-14] MEDS: CEFTRIAXONE 1 GM/50 ML (PMX) 50 ML IVPB SCH (08:54)
[2018-07-14] MEDS: ACETYLCYSTEINE 600 MG CAP PO SCH ×2 (08:54→20:07)
[2018-07-14] MEDS: LINAGLIPTIN 5 MG TABLET PO SCH (08:54)
[2018-07-14] MEDS: AMLODIPINE 5 MG TAB PO SCH ×2 (08:57→20:07)
[2018-07-14] MEDS: ENOXAPARIN 30 MG/0.3 ML SYG SC SCH (09:01)
--- NOTE | 2018-07-14 11:39 | PN ---
Date/Time of Note Date/Time of Note DATE: 07/14/18 TIME: 11:37 Assessment/Plan VTE Prophylaxis Risk score (from Ns)>0 risk: 2 SCD applied (from Ns): No SCD contraindicated: low risk/ambulating Pharmacological prophylaxis: NA/contraindicated Pharm contraindication: low risk/ambulating Lines/Catheters IV [facility] Type (from [facility] [place] Urinary Cath still in place: No Assessment/Plan Hospital Course Hospital Course 1. Left foot cellulitis. Discoloration of 2 and 3 toes. S/p amputation of the left fourth digit and transmetatarsal amputation of the fifth digit. 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 On Xray soft tissue swelling. Vascular calcification consistent with atherosclerotic disease. Also noted to have right sole of the foot blackish discoloration 2. Anemia 3. Overweight 4. DANIELLE, creatinine 1.97. Pt creatinine was 1.73 in [facility] February 2018 and then return to normal. Cr had been improving, and Cr is 1.5 5. DM type II with diabetic neuropathy 6. Hypertension 7. Right foot sole wound 8. Peripheral vascular disease. On Duplex US 09/2017 Monophasic wave forms in bilateral posterior tibial arteries and dorsalis pedis arteries consistent with a significant bilateral infrapopliteal stenosis. 9 Anemia Plan - MRI +Findings consistent with osteomyelitis at the fifth metatarsal amputation site. Findings consistent with osteomyelitis of the third toe distal, and probably middle and proximal phalanges. Findings likely representing osteomyelitis of the second toe distal phalanx. - s/p aortogram peripheral vascular disease -Talk to Dr. Betancur will get OR time -Hold Lasix in order to prevent contrast nephropathy - cw Rocephin - Monitor fevers -Continue with pentoxifylline -cwWith clonidine and Norvasc for blood pressure -cw with IV iron - hold nephrotoxic agents strict I's and O's - mucomist total 2 days - GI prophylaxsis transfer to med surg Result Diagram: 07/14/18 0722 07/14/18 0722 Results 24hrs Laboratory Tests Test 07/13/18 12:56 07/13/18 13:19 07/13/18 19:17 07/13/18 21:06 Bedside Glucose 123 106 167 White Blood Count 8.7 # Red Blood Count 3.49 #L Hemoglobin 10.9 #L Hematocrit 30.9 #L Mean Corpuscular 88.5 Volume Mean Corpuscular 31.2 Hemoglobin Mean Corpuscular 35.3 Hemoglobin Concen t Red Cell 13.0 Distribution Width Platelet Count 333 # Mean Platelet 9.3 Volume Immature 1.300 H Granulocytes % Neutrophils % 75.2 Lymphocytes % 15.2 Monocytes % 5.9 Eosinophils % 2.1 Basophils % 0.3 Nucleated Red 0.0 Blood Cells % Immature 0.110 H Granulocytes # Neutrophils # 6.6 Lymphocytes # 1.3 Monocytes # 0.5 Eosinophils # 0.2 Basophils # 0.0 Nucleated Red 0.0 Blood Cells # Test 07/14/18 00:16 07/14/18 06:17 07/14/18 07:22 07/14/18 07:25 Bedside Glucose 218 142 White Blood Count 8.6 Red Blood Count 2.97 L Hemoglobin 9.3 L Hematocrit 26.7 L Mean Corpuscular 89.9 Volume Mean Corpuscular 31.3 Hemoglobin Mean Corpuscular 34.8 Hemoglobin Concen t Red Cell 13.0 Distribution Width Platelet Count 291 Mean Platelet 9.1 Volume Immature 0.900 H Granulocytes % Neutrophils % 74.3 Lymphocytes % 16.0 Monocytes % 7.0 Eosinophils % 1.4 Basophils % 0.4 Nucleated Red 0.0 Blood Cells % Immature 0.080 H Granulocytes # Neutrophils # 6.4 Lymphocytes # 1.4 Monocytes # 0.6 Eosinophils # 0.1 Basophils # 0.0 Nucleated Red 0.0 Blood Cells # Sodium Level 140 Potassium Level 3.5 Chloride Level 107 Carbon Dioxide 26 Level Anion Gap 7 Blood Urea 23 H Nitrogen Creatinine 1.51 H Est Glomerular 49 L Filtrat Rate mL/min Glucose Level 143 Calcium Level 8.3 L Phosphorus Level 4.2 Magnesium Level 1.7 Lab Scanned BLOOD TRANSFUSIO Report N Test 07/14/18 07:56 Bedside Glucose 134 Subjective 24 Hr Interval Summary Free Text/Dictation Status post angiogram aortogram yesterday with mild peripheral vascular disease, per notes no intervention done 101 fevers Exam/Review of Systems Exam Vitals Vital Signs Date Temp Pulse Resp B/P (MAP) Pulse Ox O2 O2 Flow FiO2 Time Delivery Rate 07/14/18 76 08:12 07/14/18 99.0 18 143/74 95 07:25 (97) 07/14/18 Room Air 03:40 Intake and Output 07/13/18 07/13/1807/14/19 1515:00 23:00 07:00 IntakeIntake Total 500 ml BalanceBalance 500 ml Exam Neck: supple Respiratory: clear to auscultation Cardiovascular: regular rate and rhythm, diastolic murmur Musculoskeletal: nl extremities to inspection XTREMITIES: Left foot erythema, edema and pressure sores on his third, second toe, right foot with plantar necrotic skin break Right sole has blackish discoloration near on fourth and fifth metatarsal Results Results 24hrs Laboratory Tests Test 07/13/18 12:56 07/13/18 13:19 07/13/18 19:17 07/13/18 21:06 Bedside Glucose 123 106 167 White Blood Count 8.7 # Red Blood Count 3.49 #L Hemoglobin 10.9 #L Hematocrit 30.9 #L Mean Corpuscular 88.5 Volume Mean Corpuscular 31.2 Hemoglobin Mean Corpuscular 35.3 Hemoglobin Concen t Red Cell 13.0 Distribution Width Platelet Count 333 # Mean Platelet 9.3 Volume Immature 1.300 H Granulocytes % Neutrophils % 75.2 Lymphocytes % 15.2 Monocytes % 5.9 Eosinophils % 2.1 Basophils % 0.3 Nucleated Red 0.0 Blood Cells % Immature 0.110 H Granulocytes # Neutrophils # 6.6 Lymphocytes # 1.3 Monocytes # 0.5 Eosinophils # 0.2 Basophils # 0.0 Nucleated Red 0.0 Blood Cells # Test 07/14/18 00:16 07/14/18 06:17 07/14/18 07:22 07/14/18 07:25 Bedside Glucose 218 142 White Blood Count 8.6 Red Blood Count 2.97 L Hemoglobin 9.3 L Hematocrit 26.7 L Mean Corpuscular 89.9 Volume Mean Corpuscular 31.3 Hemoglobin Mean Corpuscular 34.8 Hemoglobin Concen t Red Cell 13.0 Distribution Width Platelet Count 291 Mean Platelet 9.1 Volume Immature 0.900 H Granulocytes % Neutrophils % 74.3 Lymphocytes % 16.0 Monocytes % 7.0 Eosinophils % 1.4 Basophils % 0.4 Nucleated Red 0.0 Blood Cells % Immature 0.080 H Granulocytes # Neutrophils # 6.4 Lymphocytes # 1.4 Monocytes # 0.6 Eosinophils # 0.1 Basophils # 0.0 Nucleated Red 0.0 Blood Cells # Sodium Level 140 Potassium Level 3.5 Chloride Level 107 Carbon Dioxide 26 Level Anion Gap 7 Blood Urea 23 H Nitrogen Creatinine 1.51 H Est Glomerular 49 L Filtrat Rate mL/min Glucose Level 143 Calcium Level 8.3 L Phosphorus Level 4.2 Magnesium Level 1.7 Lab Scanned BLOOD TRANSFUSIO Report N Test 07/14/18 07:56 Bedside Glucose 134 Medications Medication Current Medications Acetaminophen/ Hydrocodone Bitart ([place] (5/325)) 1 tab Q4H PRN PO MODERATE P AIN LEVEL 4-6; Start 07/04/18 at 01:30 Pantoprazole (Protonix Tab) 40 mg DAILY@06 PO Last administered on 07/14/18at 06:19; Admin Dose 40 MG; Start 07/04/18 at 06:00 Acetaminophen (Tylenol Tab) 650 mg Q6H PRN PO MILD PAIN(1-3)OR ELEVATED TEMP Last administered on 07/14/18at 03:51; Admin Dose 650 MG; Start 07/04/18 at 01:30 Clonidine (Catapres) 0.1 mg TID PO Last administered on 07/14/18at 08:54; Admin Dose 0.1 MG; Start 07/04/18 at 09:00 Clonidine (Catapres) 0.1 mg Q6H PRN PO ELEVATED BLOOD PRESSURE Last administered on 07/04/18at 01:47; Admin Dose 0.1 MG; Start 07/04/18 at 01:30 Ceftriaxone Sodium 50 ml @ 100 mls/hr Q24H IVPB Last administered on 07/14/18 08:54; Admin Dose 100 MLS/HR; Start 07/04/18 at 09:00 Miscellaneous Information 1 ea NOTE XX ; Start 07/04/18 at 02:00 Glucose (Glutose) 15 gm Q15M PRN PO DECREASED GLUCOSE; Start 07/04/18 at 02:00 Glucose (Glutose) 22.5 gm Q15M PRN PO DECREASED GLUCOSE; Start 07/04/18 at 02:00 Dextrose (D50w Syringe) 25 ml Q15M PRN IV DECREASED GLUCOSE; Start 07/04/18 at 02:00 Dextrose (D50w Syringe) 50 ml Q15M PRN IV DECREASED GLUCOSE; Start 07/04/18 at 02:00 Glucagon (Glucagen) 1 mg Q15M PRN IM DECREASED GLUCOSE; Start 07/04/18 at 02:00 Glucose (Glutose) 15 gm Q15M PRN BUCCAL DECREASED GLUCOSE; Start 07/04/18 at 02:00 Bisacodyl (Dulcolax) 10 mg BID PRN PO CONSTIPATION; Start 07/04/18 at 01:30 Miscellaneous Information (Pending [facility] Order For Wound Care) This patient mora... PRN PRN XX WOUND CARE; Start 07/04/18 at 02:00 Pentoxifylline (Trental) 400 mg TID PO Last administered on 07/14/18 08:54; Admin Dose 400 MG; Start 07/04/18 at 21:00 Linagliptin (Tradjenta) 5 mg DAILY PO Last administered on 07/14/18 08:54; Admin Dose 5 MG; Start 07/04/18 at 14:00 Amlodipine Besylate (Norvasc) 5 mg BID PO Last administered on 07/14/18 08:57; Admin Dose 5 MG; Start 07/07/18 at 15:00 Enoxaparin Sodium (Lovenox) 30 mg DAILY SC Last administered on 07/14/18 09:01; Admin Dose 30 MG; Start 07/09/18 at 09:00 Zinc Sulfate (Zinc Sulfate) 220 mg DAILY NGT Last administered on 07/14/18 08:54; Admin Dose 220 MG; Start 07/10/18 at 13:30 Ferrous Sulfate (Ferrous Sulfate (Ec)) 325 mg DAILY PO Last administered on 07/14/18 08:54; Admin Dose 325 MG; Start 07/11/18 at 10:00 Insulin Aspart (Novolog Insulin Pen) NOVOLOG *MODERATE* ALGORITHM Q4 SC Last administered on 07/14/18 00:23; Admin Dose 1 UNIT; Start 07/13/18 at 09:00 Acetylcysteine (Nac) 1,200 mg BID PO Last administered on 07/14/18 08:54; Admin Dose 1,200 MG; Start 07/13/18 at 21:00 GINA SUTTON MD Jul 14, 2018 11:39
--- NOTE | 2018-07-14 15:01 | CONS ---
Assessment/Plan Assessment/Plan Hospital Course (Demo Recall) No acute events overnight patient is alert, feels good Antimicrobials: Rocephin Micro: wound cx + HÉCTOR PHYSICAL EXAMINATION: GENERAL: Well-nourished, well-developed 52-year-old man who is awake, in no distress. HEENT: Head atraumatic, normocephalic. NECK: Supple. CHEST: Rise symmetrical. Breath sounds clear. HEART: S1, S2. ABDOMEN: Soft, bowel tones present. EXTREMITIES: Left foot erythema, edema and pressure sores on his third, second toe, right foot with plantar necrotic skin breakdown. Assessment: 1. Left foot HÉCTOR cellulitis/osteomyelitis per MRI 2. Diabetes 3. Diabetic neuropathy 4. Hypertension 5. Peripheral vascular disease Plan: Patient remains stable, status post angiogram, vascular recommendations noted, continue antibiotics, low podiatry recommendations, poss toe amputation Consultation Date/Type/Reason Admit Date/Time Jul 03, 2018 at 22:10 Initial Consult Date 07/04/18 Type of Consult id Date/Time of Note DATE: 07/14/18 TIME: 14:59 Exam/Review of Systems Exam Vitals Vital Signs Date Temp Pulse Resp B/P (MAP) Pulse Ox O2 O2 Flow FiO2 Time Delivery Rate 07/14/18 84 12:06 07/14/18 98.4 17 117/69 98 11:36 (85) 07/14/18 Room Air 03:40 Intake and Output 07/13/18 07/13/18 07/14/18 1515:00 23:00 07:00 IntakeIntake Total 500 ml BalanceBalance 500 ml Results Result Diagram: 07/14/1822 07/14/18 0722 Results 24hrs Laboratory Tests Test 07/13/18 19:17 07/13/18 21:06 07/14/18 00:16 07/14/18 06:17 Bedside Glucose 106 167 218 142 Test 07/14/18 07:22 07/14/18 07:25 07/14/18 07:56 07/14/18 12:02 White Blood Count 8.6 Red Blood Count 2.97 L Hemoglobin 9.3 L Hematocrit 26.7 L Mean Corpuscular 89.9 Volume Mean Corpuscular 31.3 Hemoglobin Mean Corpuscular 34.8 Hemoglobin Concen t Red Cell 13.0 Distribution Width Platelet Count 291 Mean Platelet 9.1 Volume Immature 0.900 H Granulocytes % Neutrophils % 74.3 Lymphocytes % 16.0 Monocytes % 7.0 Eosinophils % 1.4 Basophils % 0.4 Nucleated Red 0.0 Blood Cells % Immature 0.080 H Granulocytes # Neutrophils # 6.4 Lymphocytes # 1.4 Monocytes # 0.6 Eosinophils # 0.1 Basophils # 0.0 Nucleated Red 0.0 Blood Cells # Sodium Level 140 Potassium Level 3.5 Chloride Level 107 Carbon Dioxide 26 Level Anion Gap 7 Blood Urea 23 H Nitrogen Creatinine 1.51 H Est Glomerular 49 L Filtrat Rate mL/min Glucose Level 143 Calcium Level 8.3 L Phosphorus Level 4.2 Magnesium Level 1.7 Lab Scanned BLOOD TRANSFUSIO Report N Bedside Glucose 134 212 Medications Medication Current Medications Acetaminophen/ Hydrocodone Bitart ([place] (5/325)) 1 tab Q4H PRN PO MODERATE PAIN LEVEL 4-6; Start 07/04/18 at 01:30 Pantoprazole (Protonix Tab) 40 mg DAILY@06 PO Last administered on 07/14/18at 06:19; Admin Dose 40 MG; Start 07/04/18 at 06:00 Acetaminophen (Tylenol Tab) 650 mg Q6H PRN PO MILD PAIN(1-3)OR ELEVATED TEMP Last administered on 07/14/18at 03:51; Admin Dose 650 MG; Start 07/04/18 at 01:30 Clonidine (Catapres) 0.1 mg TID PO Last administered on 07/14/18at 12:10; Admin Dose 0.1 MG; Start 07/04/18 at 09:00 Clonidine (Catapres) 0.1 mg Q6H PRN PO ELEVATED BLOOD PRESSURE Last administered on 07/04/18at 01:47; Admin Dose 0.1 MG; Start 07/04/18 at 01:30 Ceftriaxone Sodium 50 ml @ 100 mls/hr Q24H IVPB Last administered on 07/14/18at 08:54; Admin Dose 100 MLS/HR; Start 07/04/18 at 09:00 Miscellaneous Information 1 ea NOTE XX ; Start 07/04/18 at 02:00 Glucose (Glutose) 15 gm Q15M PRN PO DECREASED GLUCOSE; Start 07/04/18 at 02:00 Glucose (Glutose) 22.5 gm Q15M PRN PO DECREASED GLUCOSE; Start 07/04/18 at 02:00 Dextrose (D50w Syringe) 25 ml Q15M PRN IV DECREASED GLUCOSE; Start 07/04/18 at 02:00 Dextrose (D50w Syringe) 50 ml Q15M PRN IV DECREASED GLUCOSE; Start 07/04/18 at 02:00 Glucagon (Glucagen) 1 mg Q15M PRN IM DECREASED GLUCOSE; Start 07/04/18 at 02:00 Glucose (Glutose) 15 gm Q15M PRN BUCCAL DECREASED GLUCOSE; Start 07/04/18 at 02:00 Bisacodyl (Dulcolax) 10 mg BID PRN PO CONSTIPATION; Start 07/04/18 at 01:30 [facility] This patient mora... PRN PRN XX WOUND CARE; Start 07/04/18 at 02:00 Pentoxifylline (Trental) 400 mg TID PO Last administered on 07/14/18 12:10; Admin Dose 400 MG; Start 07/04/18 at 21:00 Linagliptin (Tradjenta) 5 mg DAILY PO Last administered on 07/14/18 08:54; Admin Dose 5 MG; Start 07/04/18 at 14:00 Amlodipine Besylate (Norvasc) 5 mg BID PO Last administered on 07/14/18 08:57; Admin Dose 5 MG; Start 07/07/18 at 15:00 Enoxaparin Sodium (Lovenox) 30 mg DAILY SC Last administered on 07/14/18 09:01; Admin Dose 30 MG; Start 07/09/18 at 09:00 Zinc Sulfate (Zinc Sulfate) 220 mg DAILY NGT Last administered on 07/14/18 08:54; Admin Dose 220 MG; Start 07/10/18 at 13:30 Ferrous Sulfate (Ferrous Sulfate (Ec)) 325 mg DAILY PO Last administered on 07/14/18 08:54; Admin Dose 325 MG; Start 07/11/18 at 10:00 Insulin Aspart (Novolog Insulin Pen) NOVOLOG *MODERATE* ALGORITHM Q4 SC Last administered on 07/14/18 12:07; Admin Dose 4 UNIT; Start 07/13/18 at 09:00 Acetylcysteine (Nac) 1,200 mg BID PO Last administered on 07/14/18 08:54; Admin Dose 1,200 MG; Start 07/13/18 at 21:00 ROXANNA SOMERS NP Jul 14, 2018 15:01
--- NOTE | 2018-07-14 18:23 | PN ---
Date/Time of Note Date/Time of Note DATE: 07/14/18 TIME: 18:17 Assessment/Plan Lines/Catheters IV Catheter Type (from [facility]): Saline Lock [facility] in Place (from [facility]): No Assessment/Plan Problems: (1) Diabetes, polyneuropathy (2) Peripheral vascular disease (3) Gangrene of left foot (4) Anemia Status: Acute Qualifiers: Anemia type: unspecified type Qualified Codes: D64.9 - Anemia, unspecified (5) Cellulitis of foot Status: Acute (6) Osteomyelitis Status: Acute Qualifiers: Osteomyelitis type: unspecified type Osteomyelitis location: foot Laterality: right Qualified Codes: M86.9 - Osteomyelitis, unspecified (7) Open wound of left foot Qualifiers: Encounter type: initial encounter Qualified Codes: S91.302A - Unspecified open wound, left foot, initial encounter (8) Gangrene of right foot Status: Acute Assessment/Plan Plan: Procedures: Patient to be scheduled for surgery for both feet with surgical debridement of right foot open wounds and amputation of left third toe. Surgery is planned for . Weightbearing: Nonweightbearing bilateral feet. Wound Care: Continue silver alginate on the right foot with Betadine painted on the skin and daily dressing changes. Continue just Betadine paint on the left foot with daily dressing changes. Patient will be followed in-house. Subjective 24 Hr Interval Summary Patient was seen at bedside. Patient is in no acute distress. Denies overnight adverse events. Denies fever, chills, nausea or vomiting. Denies recent trau ma. Exam/Review of Systems Vital Signs Vitals Vital Signs Date Temp Pulse Resp B/P (MAP) Pulse Ox O2 O2 Flow FiO2 Time Delivery Rate 07/14/18 77 16:09 07/14/18 98.0 18 131/77 98 15:39 (95) 07/14/18 Room Air 03:40 Intake and Output 07/13/18 07/13/18 07/14/18 1515:00 23:00 07:00 IntakeIntake Total 500 ml BalanceBalance 500 ml Exam Free Text/Dictation RIGHT FOOT: open wound plantar 1st MPJ -- necrotic with (+) malodor; no pus; no erythema; no tenderness open wound plantar 5th MPJ -- necrotic with (+) malodor; no pus; no erythema; no tenderness DP and PT pulses weak; CFT is delayed and TG is increased; there is edema of the right foot and ankle noted LEFT FOOT: s/p 5th and 4th ray amputations in the past; healed with no sign of infection third toe gangrene noted with (+) malodor; non tender to exam; contracted second toe seems viable at this time DP and PT pulses are weak; CFT is delayed and TG is normal; minimal edema present Labs reviewed. Results Result Diagram: 07/14/18 0722 07/14/18 0722 JOSE A HIGUERA DPM Jul 14, 2018 18:23
[2018-07-15] VITALS (7 sets, daily range): BP systolic 133–155; BP diastolic 70–90; PULSE 75–85; RESP 16–18
[2018-07-15] MEDS: INSULIN ASPART [NOVOLOG] 3 ML PEN SC SCH ×6 (00:49→20:37)
[2018-07-15] MEDS: PANTOPRAZOLE (EC) 40 MG TAB PO SCH (05:30)
[2018-07-15] MEDS: CEFTRIAXONE 1 GM/50 ML (PMX) 50 ML IVPB SCH (08:37)
[2018-07-15] MEDS: ZINC SULFATE 220 MG CAP NGT SCH (08:38)
[2018-07-15] MEDS: ACETYLCYSTEINE 600 MG CAP PO SCH (08:38)
[2018-07-15] MEDS: FERROUS SULFATE (EC) 325 MG TAB PO SCH (08:38)
[2018-07-15] MEDS: LINAGLIPTIN 5 MG TABLET PO SCH (08:39)
[2018-07-15] MEDS: AMLODIPINE 5 MG TAB PO SCH ×2 (08:39→20:32)
[2018-07-15] MEDS: PENTOXIFYLLINE (SR) 400 MG TAB PO SCH ×3 (08:39→20:33)
[2018-07-15] MEDS: ENOXAPARIN 30 MG/0.3 ML SYG SC SCH (08:45)
--- NOTE | 2018-07-15 10:18 | PN ---
Date/Time of Note Date/Time of Note DATE: 07/15/18 TIME: 10:17 Assessment/Plan VTE Prophylaxis Risk score (from Ns)>0 risk: 5 SCD applied (from Ns): No SCD contraindicated: low risk/ambulating Pharmacological prophylaxis: NA/contraindicated Pharm contraindication: low risk/ambulating Lines/Catheters [facility]from [facility] Saline Lock Urinary Cath still in place: No Assessment/Plan Hospital Course Hospital Course 1. Left foot cellulitis. Discoloration of 2 and 3 toes. S/p amputation of the left fourth digit and transmetatarsal amputation of the fifth digit. 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 On Xray soft tissue swelling. Vascular calcification consistent with atherosclerotic disease. Also noted to have right sole of the foot blackish discoloration 2. Anemia 3. Overweight 4. DANIELLE, creatinine 1.97. Pt creatinine was 1.73 in [facility] February 2018 and then return to normal. Cr had been improving, and Cr is 1.5 5. DM type II with diabetic neuropathy 6. Hypertension 7. Right foot sole wound 8. Peripheral vascular disease. On Duplex US 09/2017 Monophasic wave forms in bilateral posterior tibial arteries and dorsalis pedis arteries consistent with a significant bilateral infrapopliteal stenosis. 9 Anemia Plan - MRI +Findings consistent with osteomyelitis at the fifth metatarsal amputation site. Findings consistent with osteomyelitis of the third toe distal, and probably middle and proximal phalanges. Findings likely representing osteomyelitis of the second toe distal phalanx. - s/p aortogram peripheral vascular disease -OR tmw per Dr Betancur -Hold Lasix in order to prevent contrast nephropathy - cw Rocephin - Monitor fevers -Continue with pentoxifylline -cwWith clonidine and Norvasc for blood pressure -cw with IV iron - hold nephrotoxic agents strict I's and O' - GI prophylaxsis transfer to med surg Result Diagram: 07/15/18 0559 07/15/18 0559 Results 24hrs Laboratory Tests Test 07/14/18 12:02 07/14/18 17:41 07/14/18 20:06 07/15/18 00:45 Bedside Glucose 212 220 227 H 153 Test 07/15/18 05:29 07/15/18 05:59 07/15/18 07:43 Bedside Glucose 138 133 White Blood Count 9.1 Red Blood Count 2.90 L Hemoglobin 9.2 L Hematocrit 26.1 L Mean Corpuscular 90.0 Volume Mean Corpuscular 31.7 Hemoglobin Mean Corpuscular 35.2 Hemoglobin Concent Red Cell 12.7 Distribution Width Platelet Count 278 Mean Platelet Volume 9.4 Immature 0.500 H Granulocytes % Neutrophils % 76.2 Lymphocytes % 15.1 Monocytes % 6.7 Eosinophils % 1.4 Basophils % 0.1 Nucleated Red Blood 0.0 Cells % Immature 0.050 H Granulocytes # Neutrophils # 6.9 Lymphocytes # 1.4 Monocytes # 0.6 Eosinophils # 0.1 Basophils # 0.0 Nucleated Red Blood 0.0 Cells # Sodium Level 140 Potassium Level 3.7 Chloride Level 106 Carbon Dioxide Level 25 Anion Gap 9 Blood Urea Nitrogen 21 H Creatinine 1.51 H Est Glomerular 49 L Filtrat Rate mL/min Glucose Level 138 Calcium Level 8.5 Phosphorus Level 3.4 Magnesium Level 1.9 Subjective 24 Hr Interval Summary Free Text/Dictation Surgery per Dr. Coronado scheduled tomorrow patient denies any complaints Exam/Review of Systems Exam Vitals Vital Signs Date Temp Pulse Resp B/P (MAP) Pulse Ox O2 O2 Flow FiO2 Time Delivery Rate 07/15/18 98.0 76 18 145/80 99 Room Air 07:16 (101) Intake and Output 07/14/18 07/14/18 07/15/18 1515:00 23:00 07:00 IntakeIntake Total 1200 ml 450 ml BalanceBalance 1200 ml 450 ml Exam Neck: supple Respiratory: clear to auscultation Cardiovascular: regular rate and rhythm, diastolic murmur Musculoskeletal: nl extremities to inspection XTREMITIES: Left foot erythema, edema and pressure sores on his third, second toe, right foot with plantar necrotic skin break Right sole has blackish discoloration near on fourth and fifth metatarsal Results Results 24hrs Laboratory Tests Test 07/14/18 12:02 07/14/18 17:41 07/14/18 20:06 07/15/18 00:45 Bedside Glucose 212 220 227 H 153 Test 07/15/18 05:29 07/15/18 05:59 07/15/18 07:43 Bedside Glucose 138 133 White Blood Count 9.1 Red Blood Count 2.90 L Hemoglobin 9.2 L Hematocrit 26.1 L Mean Corpuscular 90.0 Volume Mean Corpuscular 31.7 Hemoglobin Mean Corpuscular 35.2 Hemoglobin Concent Red Cell 12.7 Distribution Width Platelet Count 278 Mean Platelet Volume 9.4 Immature 0.500 H Granulocytes % Neutrophils % 76.2 Lymphocytes % 15.1 Monocytes % 6.7 Eosinophils % 1.4 Basophils % 0.1 Nucleated Red Blood 0.0 Cells % Immature 0.050 H Granulocytes # Neutrophils # 6.9 Lymphocytes # 1.4 Monocytes # 0.6 Eosinophils # 0.1 Basophils # 0.0 Nucleated Red Blood 0.0 Cells # Sodium Level 140 Potassium Level 3.7 Chloride Level 106 Carbon Dioxide Level 25 Anion Gap 9 Blood Urea Nitrogen 21 H Creatinine 1.51 H Est Glomerular 49 L Filtrat Rate mL/min Glucose Level 138 Calcium Level 8.5 Phosphorus Level 3.4 Magnesium Level 1.9 Medications Medication Current Medications Acetaminophen/ Hydrocodone Bitart ([place] (5/325)) 1 tab Q4H PRN PO MODERATE PAIN LEVEL 4-6; Start 07/04/18 at 01:30 Pantoprazole (Protonix Tab) 40 mg DAILY@06 PO Last administered on 07/15/18at 05:30; Admin Dose 40 MG; Start 07/04/18 at 06:00 Acetaminophen (Tylenol Tab) 650 mg Q6H PRN PO MILD PAIN(1-3)OR ELEVATED TEMP Last administered on 07/14/18at 03:51; Admin Dose 650 MG; Start 07/04/18 at 01:30 Clonidine (Catapres) 0.1 mg TID PO Last administered on 07/15/18at 08:39; Admin Dose 0.1 MG; Start 07/04/18 at 09:00 Clonidine (Catapres) 0.1 mg Q6H PRN PO ELEVATED BLOOD PRESSURE Last administered on 07/04/18at 01:47; Admin Dose 0.1 MG; Start 07/04/18 at 01:30 Ceftriaxone Sodium 50 ml @ 100 mls/hr Q24H IVPB Last administered on 07/15/18at 08:37; Admin Dose 100 MLS/HR; Start 07/04/18 at 09:00 Miscellaneous Information 1 ea NOTE XX ; Start 07/04/18 at 02:00 Glucose (Glutose) 15 gm Q15M PRN PO DECREASED GLUCOSE; Start 07/04/18 at 02:00 Glucose (Glutose) 22.5 gm Q15M PRN PO DECREASED GLUCOSE; Start 07/04/18 at 02:00 Dextrose (D50w Syringe) 25 ml Q15M PRN IV DECREASED GLUCOSE; Start 07/04/18 at 02:00 Dextrose (D50w Syringe) 50 ml Q15M PRN IV DECREASED GLUCOSE; Start 07/04/18 at 02:00 Glucagon (Glucagen) 1 mg Q15M PRN IM DECREASED GLUCOSE; Start 07/04/18 at 02:00 Glucose (Glutose) 15 gm Q15M PRN BUCCAL DECREASED GLUCOSE; Start 07/04/18 at 02:00 Bisacodyl (Dulcolax) 10 mg BID PRN PO CONSTIPATION; Start 07/04/18 at 01:30 Miscellaneous Information (Pending [facility] Order For Wound Care) This patient mora... PRN PRN XX WOUND CARE; Start 07/04/18 at 02:00 Pentoxifylline (Trental) 400 mg TID PO Last administered on 07/15/18 08:39; Admin Dose 400 MG; Start 07/04/18 at 21:00 Linagliptin (Tradjenta) 5 mg DAILY PO Last administered on 07/15/18 08:39; Admin Dose 5 MG; Start 07/04/18 at 14:00 Amlodipine Besylate (Norvasc) 5 mg BID PO Last administered on 07/15/18at 08:39; Admin Dose 5 MG; Start 07/07/18 at 15:00 Enoxaparin Sodium (Lovenox) 30 mg DAILY SC Last administered on 07/15/18at 08:45; Admin Dose 30 MG; Start 07/09/18 at 09:00 Zinc Sulfate (Zinc Sulfate) 220 mg DAILY NGT Last administered on 07/15/18 08:38; Admin Dose 220 MG; Start 07/10/18 at 13:30 Ferrous Sulfate (Ferrous Sulfate (Ec)) 325 mg DAILY PO Last administered on 07/15/18 08:38; Admin Dose 325 MG; Start 07/11/18 at 10:00 Acetylcysteine (Nac) 1,200 mg BID PO Last administered on 07/15/18at 08:38; Admin Dose 1,200 MG; Start 07/13/18 at 21:00 Insulin Aspart (Novolog Insulin Pen) NOVOLOG *MODERATE* ALGORITHM AC MEALS AND BEDTIME SC ; Start 07/15/18 at 11:20 GINA SUTTON MD Jul 15, 2018 10:18
--- NOTE | 2018-07-15 10:50 | CONS ---
Assessment/Plan Assessment/Plan Hospital Course (Demo Recall) No acute events overnight, looks comfortable Antimicrobials: Rocephin Micro: wound cx + HÉCTOR PHYSICAL EXAMINATION: GENERAL: Well-nourished, well-developed 52-year-old man who is awake, in no distress. HEENT: Head atraumatic, normocephalic. NECK: Supple. CHEST: Rise symmetrical. Breath sounds clear. HEART: S1, S2. ABDOMEN: Soft, bowel tones present. EXTREMITIES: Left foot erythema, edema and pressure sores on his third, second toe, right foot with plantar necrotic skin breakdown. Assessment: 1. Left foot HÉCTOR cellulitis/osteomyelitis per MRI 2. Diabetes 3. Diabetic neuropathy 4. Hypertension 5. Peripheral vascular disease, status post angiogram Plan: Patient remains stable, continue antibiotics, podiatry rec-s noted==> pending debridement with infected toe amputation Consultation Date/Type/Reason Admit Date/Time Jul 03, 2018 at 22:10 Initial Consult Date 07/04/18 Type of Consult id Date/Time of Note DATE: 07/15/18 TIME: 10:49 Exam/Review of Systems Exam Vitals Vital Signs Date Temp Pulse Resp B/P (MAP) Pulse Ox O2 O2 Flow FiO2 Time Delivery Rate 07/15/18 98.0 76 18 145/80 99 Room Air 07:16 (101) Intake and Output 07/14/18 07/14/18 07/15/18 1515:00 23:00 07:00 IntakeIntake Total 1200 ml 450 ml BalanceBalance 1200 ml 450 ml Results Result Diagram: 07/15/18 0559 07/15/18 0559 Results 24hrs Laboratory Tests Test 07/14/18 12:02 07/14/18 17:41 07/14/18 20:06 07/15/18 00:45 Bedside Glucose 212 220 227 H 153 Test 07/15/18 05:29 07/15/18 05:59 07/15/18 07:43 Bedside Glucose 138 133 White Blood Count 9.1 Red Blood Count 2.90 L Hemoglobin 9.2 L Hematocrit 26.1 L Mean Corpuscular 90.0 Volume Mean Corpuscular 31.7 Hemoglobin Mean Corpuscular 35.2 Hemoglobin Concent Red Cell 12.7 Distribution Width Platelet Count 278 Mean Platelet Volume 9.4 Immature 0.500 H Granulocytes % Neutrophils % 76.2 Lymphocytes % 15.1 Monocytes % 6.7 Eosinophils % 1.4 Basophils % 0.1 Nucleated Red Blood 0.0 Cells % Immature 0.050 H Granulocytes # Neutrophils # 6.9 Lymphocytes # 1.4 Monocytes # 0.6 Eosinophils # 0.1 Basophils # 0.0 Nucleated Red Blood 0.0 Cells # Sodium Level 140 Potassium Level 3.7 Chloride Level 106 Carbon Dioxide Level 25 Anion Gap 9 Blood Urea Nitrogen 21 H Creatinine 1.51 H Est Glomerular 49 L Filtrat Rate mL/min Glucose Level 138 Calcium Level 8.5 Phosphorus Level 3.4 Magnesium Level 1.9 Medications Medication Current Medications Acetaminophen/ Hydrocodone Bitart ([place] (5/325)) 1 tab Q4H PRN PO MODERATE PAIN LEVEL 4-6; Start 07/04/18 at 01:30 Pantoprazole (Protonix Tab) 40 mg DAILY@06 PO Last administered on 07/15/18at 05:30; Admin Dose 40 MG; Start 07/04/18 at 06:00 Acetaminophen (Tylenol Tab) 650 mg Q6H PRN PO MILD PAIN(1-3)OR ELEVATED TEMP Last administered on 07/14/18at 03:51; Admin Dose 650 MG; Start 07/04/18 at 01:30 Clonidine (Catapres) 0.1 mg TID PO Last administered on 07/15/18at 08:39; Admin Dose 0.1 MG; Start 07/04/18 at 09:00 Clonidine (Catapres) 0.1 mg Q6H PRN PO ELEVATED BLOOD PRESSURE Last administered on 07/04/18at 01:47; Admin Dose 0.1 MG; Start 07/04/18 at 01:30 Ceftriaxone Sodium 50 ml @ 100 mls/hr Q24H IVPB Last administered on 07/15/18at 08:37; Admin Dose 100 MLS/HR; Start 07/04/18 at 09:00 Miscellaneous Information 1 ea NOTE XX ; Start 07/04/18 at 02:00 Glucose (Glutose) 15 gm Q15M PRN PO DECREASED GLUCOSE; Start 07/04/18 at 02:00 Glucose (Glutose) 22.5 gm Q15M PRN PO DECREASED GLUCOSE; Start 07/04/18 at 02:00 Dextrose (D50w Syringe) 25 ml Q15M PRN IV DECREASED GLUCOSE; Start 07/04/18 at 02:00 Dextrose (D50w Syringe) 50 ml Q15M PRN IV DECREASED GLUCOSE; Start 07/04/18 at 02:00 Glucagon (Glucagen) 1 mg Q15M PRN IM DECREASED GLUCOSE; Start 07/04/18 at 02:00 Glucose (Glutose) 15 gm Q15M PRN BUCCAL DECREASED GLUCOSE; Start 07/04/18 at 02:00 Bisacodyl (Dulcolax) 10 mg BID PRN PO CONSTIPATION; Start 07/04/18 at 01:30 Miscellaneous Information (Pending [facility] Order For Wound Care) This patient mora... PRN PRN XX WOUND CARE; Start 07/04/18 at 02:00 Pentoxifylline (Trental) 400 mg TID PO Last administered on 07/15/18at 08:39; Admin Dose 400 MG; Start 07/04/18 at 21:00 Linagliptin (Tradjenta) 5 mg DAILY PO Last administered on 07/15/18at 08:39; Admin Dose 5 MG; Start 07/04/18 at 14:00 Amlodipine Besylate (Norvasc) 5 mg BID PO Last administered on 07/15/18at 08:39; Admin Dose 5 MG; Start 07/07/18 at 15:00 Enoxaparin Sodium (Lovenox) 30 mg DAILY SC Last administered on 07/15/18at 08:45; Admin Dose 30 MG; Start 07/09/18 at 09:00 Zinc Sulfate (Zinc Sulfate) 220 mg DAILY NGT Last administered on 07/15/18at 08:38; Admin Dose 220 MG; Start 07/10/18 at 13:30 Ferrous Sulfate (Ferrous Sulfate (Ec)) 325 mg DAILY PO Last administered on 07/15/18at 08:38; Admin Dose 325 MG; Start 07/11/18 at 10:00 Insulin Aspart (Novolog Insulin Pen) NOVOLOG *MODERATE* ALGORITHM AC MEALS AND BEDTIME SC ; Start 07/15/18 at 11:20 ROXANNA SOMERS NP Jul 15, 2018 10:50
[2018-07-16] VITALS (16 sets, daily range): BP systolic 128–177; BP diastolic 67–98; PULSE 66–98; RESP 14–24
[2018-07-16] MEDS: PANTOPRAZOLE (EC) 40 MG TAB PO SCH (06:33)
[2018-07-16] MEDS ORDERED: CEFAZOLIN 1 GM INJ ONE (07:00)
[2018-07-16] MEDS: INSULIN ASPART [NOVOLOG] 3 ML PEN SC SCH ×4 (08:30→22:30)
[2018-07-16] MEDS: FERROUS SULFATE (EC) 325 MG TAB PO SCH (08:30)
[2018-07-16] MEDS: LINAGLIPTIN 5 MG TABLET PO SCH (08:30)
[2018-07-16] MEDS: AMLODIPINE 5 MG TAB PO SCH ×2 (08:31→21:00)
[2018-07-16] MEDS: PENTOXIFYLLINE (SR) 400 MG TAB PO SCH ×3 (08:31→21:00)
[2018-07-16] MEDS: ZINC SULFATE 220 MG CAP NGT SCH (08:32)
[2018-07-16] MEDS: ENOXAPARIN 30 MG/0.3 ML SYG SC SCH (09:00)
[2018-07-16] MEDS: CEFTRIAXONE 1 GM/50 ML (PMX) 50 ML IVPB SCH (09:42)
[2018-07-16] MEDS: DEXTROSE 5%-0.45% NACL 1,000 ML IV SCH (11:23)
--- NOTE | 2018-07-16 13:59 | CONS ---
Assessment/Plan Assessment/Plan Hospital Course (Demo Recall) No acute events overnight, looks comfortable Antimicrobials: Rocephin Micro: wound cx + HÉCTOR PHYSICAL EXAMINATION: GENERAL: Well-nourished, well-developed 52-year-old man who is awake, in no distress. HEENT: Head atraumatic, normocephalic. NECK: Supple. CHEST: Rise symmetrical. Breath sounds clear. HEART: S1, S2. ABDOMEN: Soft, bowel tones present. EXTREMITIES: Left foot erythema, edema and pressure sores on his third, second toe, right foot with plantar necrotic skin breakdown. Assessment: 1. Left foot HÉCTOR cellulitis/osteomyelitis per MRI 2. Diabetes 3. Diabetic neuropathy 4. Hypertension 5. Peripheral vascular disease, status post angiogram Plan: Patient remains stable, continue antibiotics, pending debridement, poss infected toe amputation. Consultation Date/Type/Reason Admit Date/Time Jul 03, 2018 at 22:10 Initial Consult Date 07/04/18 Type of Consult id Date/Time of Note DATE: 07/16/18 TIME: 13:59 Exam/Review of Systems Exam Vitals Vital Signs Date Temp Pulse Resp B/P (MAP) Pulse Ox O2 O2 Flow FiO2 Time Delivery Rate 07/16/18 69 16 128/73 12:05 (91) 07/16/18 99.4 96 Room Air 07:20 Intake and Output 07/15/18 07/15/18 07/16/18 1515:00 23:00 07:00 IntakeIntake Total 50 ml 840 ml 120 ml BalanceBalance 50 ml 840 ml 120 ml Results Result Diagram: 07/15/18 0559 07/16/18 0708 Results 24hrs Laboratory Tests Test 07/15/18 17:24 07/15/18 20:29 07/16/18 02:08 07/16/18 07:08 Bedside Glucose 195 193 205 Sodium Level 140 Potassium Level 3.8 Chloride Level 107 Carbon Dioxide Level 28 Anion Gap 5 Blood Urea Nitrogen 20 Creatinine 1.50 H Est Glomerular 49 L Filtrat Rate mL/min Glucose Level 161 Calcium Level 8.7 Test 07/16/18 08:27 07/16/18 11:55 Bedside Glucose 160 248 H Medications Medication Current Medications Acetaminophen/ Hydrocodone Bitart ([place] (5/325)) 1 tab Q4H PRN PO MODERATE PAIN LEVEL 4-6; Start 07/04/18 at 01:30 Pantoprazole (Protonix Tab) 40 mg DAILY@06 PO Last administered on 07/16/18at 06:33; Admin Dose 40 MG; Start 07/04/18 at 06:00 Acetaminophen (Tylenol Tab) 650 mg Q6H PRN PO MILD PAIN(1-3)OR ELEVATED TEMP Last administered on 07/14/18at 03:51; Admin Dose 650 MG; Start 07/04/18 at 01:30 Clonidine (Catapres) 0.1 mg TID PO Last administered on 07/16/18at 08:32; Admin Dose 0.1 MG; Start 07/04/18 at 09:00 Clonidine (Catapres) 0.1 mg Q6H PRN PO ELEVATED BLOOD PRESSURE Last administered on 07/04/18at 01:47; Admin Dose 0.1 MG; Start 07/04/18 at 01:30 Ceftriaxone Sodium 50 ml @ 100 mls/hr Q24H IVPB Last administered on 07/16/18at 09:42; Admin Dose 100 MLS/HR; Start 07/04/18 at 09:00 Miscellaneous Information 1 ea NOTE XX ; Start 07/04/18 at 02:00 Glucose (Glutose) 15 gm Q15M PRN PO DECREASED GLUCOSE; Start 07/04/18 at 02:00 Glucose (Glutose) 22.5 gm Q15M PRN PO DECREASED GLUCOSE; Start 07/04/18 at 02:00 Dextrose (D50w Syringe) 25 ml Q15M PRN IV DECREASED GLUCOSE; Start 07/04/18 at 02:00 Dextrose (D50w Syringe) 50 ml Q15M PRN IV DECREASED GLUCOSE; Start 07/04/18 at 02:00 Glucagon (Glucagen) 1 mg Q15M PRN IM DECREASED GLUCOSE; Start 07/04/18 at 02:00 Glucose (Glutose) 15 gm Q15M PRN BUCCAL DECREASED GLUCOSE; Start 07/04/18 at 02:00 Bisacodyl (Dulcolax) 10 mg BID PRN PO CONSTIPATION; Start 07/04/18 at 01:30 Miscellaneous Information (Pending Santyl Order For Wound Care) This patient mora... PRN PRN XX WOUND CARE; Start 07/04/18 at 02:00 Pentoxifylline (Trental) 400 mg TID PO Last administered on 07/16/18 08:31; Admin Dose 400 MG; Start 07/04/18 at 21:00 Linagliptin (Tradjenta) 5 mg DAILY PO Last administered on 07/16/18 08:30; Admin Dose 5 MG; Start 07/04/18 at 14:00 Amlodipine Besylate (Norvasc) 5 mg BID PO Last administered on 07/16/18 08:31; Admin Dose 5 MG; Start 07/07/18 at 15:00 Enoxaparin Sodium (Lovenox) 30 mg DAILY SC Last administered on 07/15/18 08:45; Admin Dose 30 MG; Start 07/09/18 at 09:00 Zinc Sulfate (Zinc Sulfate) 220 mg DAILY NGT Last administered on 07/16/18 08:32; Admin Dose 220 MG; Start 07/10/18 at 13:30 Ferrous Sulfate (Ferrous Sulfate (Ec)) 325 mg DAILY PO Last administered on 07/16/18 08:30; Admin Dose 325 MG; Start 07/11/18 at 10:00 Insulin Aspart (Novolog Insulin Pen) NOVOLOG *MODERATE* ALGORITHM AC MEALS AND BEDTIME SC Last administered on 07/16/18 12:00; Admin Dose 6 UNIT; Start 07/15/18 at 11:20 Dextrose/Sodium Chloride 1,000 ml @ 50 mls/hr Q20H IV Last administered on 07/16/18 11:23; Admin Dose 50 MLS/HR; Start 07/16/18 at 11:30 ROXANNA SOMERS NP Jul 16, 2018 13:59
--- NOTE | 2018-07-16 15:00 | PN ---
Date/Time of Note Date/Time of Note DATE: 07/16/18 TIME: 14:59 Assessment/Plan VTE Prophylaxis Risk score (from Ns)>0 risk: 3 SCD applied (from Ns): No SCD contraindicated: low risk/ambulating Pharmacological prophylaxis: NA/contraindicated Pharm contraindication: low risk/ambulating Lines/Catheters IV [facility]from [facility] Saline Lock Urinary Cath still in place: No Assessment/Plan Hospital Course Hospital Course 1. Left foot cellulitis. Discoloration of 2 and 3 toes. S/p amputation of the left fourth digit and transmetatarsal amputation of the fifth digit. 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 On Xray soft tissue swelling. Vascular calcification consistent with atherosclerotic disease. Also noted to have right sole of the foot blackish discoloration 2. Anemia 3. Overweight 4. DANIELLE, creatinine 1.97. Pt creatinine was 1.73 in [facility] February 2018 and then return to normal. Cr had been improving, and Cr is 1.5 5. DM type II with diabetic neuropathy 6. Hypertension 7. Right foot sole wound 8. Peripheral vascular disease. On Duplex US 09/2017 Monophasic wave forms in bilateral posterior tibial arteries and dorsalis pedis arteries consistent with a significant bilateral infrapopliteal stenosis. 9 Anemia Plan - MRI +Findings consistent with osteomyelitis at the fifth metatarsal amputation site. Findings consistent with osteomyelitis of the third toe distal, and probably middle and proximal phalanges. Findings likely representing osteomyelitis of the second toe distal phalanx. - s/p aortogram peripheral vascular disease -OR today per Dr Betancur -Hold Lasix in order to prevent contrast nephropathy - cw Rocephin - Monitor fevers -Continue with pentoxifylline -cwWith clonidine and Norvasc for blood pressure -cw with IV iron - hold nephrotoxic agents strict I's and O' - GI prophylaxsis Result Diagram: 07/15/18 0559 07/16/18 0708 Results 24hrs Laboratory Tests Test 07/15/18 17:24 07/15/18 20:29 07/16/18 02:08 07/16/18 07:08 Bedside Glucose 195 193 205 Sodium Level 140 Potassium Level 3.8 Chloride Level 107 Carbon Dioxide Level 28 Anion Gap 5 Blood Urea Nitrogen 20 Creatinine 1.50 H Est Glomerular 49 L Filtrat Rate mL/min Glucose Level 161 Calcium Level 8.7 Test 07/16/18 08:27 07/16/18 11:55 Bedside Glucose 160 248 H Subjective 24 Hr Interval Summary Free Text/Dictation Surgery today. Exam/Review of Systems Exam Vitals Vital Signs Date Temp Pulse Resp B/P (MAP) Pulse Ox O2 O2 Flow FiO2 Time Delivery Rate 07/16/18 98.1 75 16 148/84 97 Room Air 14:00 (105) Intake and Output 07/15/18 07/15/18 07/16/18 1515:00 23:00 07:00 IntakeIntake Total 50 ml 840 ml 120 ml BalanceBalance 50 ml 840 ml 120 ml Exam Neck: supple Respiratory: clear to auscultation Cardiovascular: regular rate and rhythm, diastolic murmur Musculoskeletal: nl extremities to inspection XTREMITIES: Left foot erythema, edema and pressure sores on his third, second toe, right foot with plantar necrotic skin break Right sole has blackish discoloration near on fourth and fifth metatarsal Results Results 24hrs Laboratory Tests Test 07/15/18 17:24 07/15/18 20:29 07/16/18 02:08 07/16/18 07:08 Bedside Glucose 195 193 205 Sodium Level 140 Potassium Level 3.8 Chloride Level 107 Carbon Dioxide Level 28 Anion Gap 5 Blood Urea Nitrogen 20 Creatinine 1.50 H Est Glomerular 49 L Filtrat Rate mL/min Glucose Level 161 Calcium Level 8.7 Test 07/16/18 08:27 07/16/18 11:55 Bedside Glucose 160 248 H Medications Medication Current Medications Acetaminophen/ Hydrocodone Bitart ([place] (5/325)) 1 tab Q4H PRN PO MODERATE PAIN LEVEL 4-6; Start 07/04/18 at 01:30 Pantoprazole (Protonix Tab) 40 mg DAILY@06 PO Last administered on 07/16/18at 06:33; Admin Dose 40 MG; Start 07/04/18 at 06:00 Acetaminophen (Tylenol Tab) 650 mg Q6H PRN PO MILD PAIN(1-3)OR ELEVATED TEMP Last administered on 07/14/18at 03:51; Admin Dose 650 MG; Start 07/04/18 at 01:30 Clonidine (Catapres) 0.1 mg TID PO Last administered on 07/16/18at 08:32; Admin Dose 0.1 MG; Start 07/04/18 at 09:00 Clonidine (Catapres) 0.1 mg Q6H PRN PO ELEVATED BLOOD PRESSURE Last administered on 07/04/18at 01:47; Admin Dose 0.1 MG; Start 07/04/18 at 01:30 Ceftriaxone Sodium 50 ml @ 100 mls/hr Q24H IVPB Last administered on 07/16/18at 09:42; Admin Dose 100 MLS/HR; Start 07/04/18 at 09:00 Miscellaneous Information 1 ea NOTE XX ; Start 07/04/18 at 02:00 Glucose (Glutose) 15 gm Q15M PRN PO DECREASED GLUCOSE; Start 07/04/18 at 02:00 Glucose (Glutose) 22.5 gm Q15M PRN PO DECREASED GLUCOSE; Start 07/04/18 at 02:00 Dextrose (D50w Syringe) 25 ml Q15M PRN IV DECREASED GLUCOSE; Start 07/04/18 at 02:00 Dextrose (D50w Syringe) 50 ml Q15M PRN IV DECREASED GLUCOSE; Start 07/04/18 at 02:00 Glucagon (Glucagen) 1 mg Q15M PRN IM DECREASED GLUCOSE; Start 07/04/18 at 02:00 Glucose (Glutose) 15 gm Q15M PRN BUCCAL DECREASED GLUCOSE; Start 07/04/18 at 02:00 Bisacodyl (Dulcolax) 10 mg BID PRN PO CONSTIPATION; Start 07/04/18 at 01:30 [facility] This patient mora... PRN PRN XX WOUND CARE; Start 07/04/18 at 02:00 Pentoxifylline (Trental) 400 mg TID PO Last administered on 07/16/18at 08:31; Admin Dose 400 MG; Start 07/04/18 at 21:00 Linagliptin (Tradjenta) 5 mg DAILY PO Last administered on 07/16/18at 08:30; Admin Dose 5 MG; Start 07/04/18 at 14:00 Amlodipine Besylate (Norvasc) 5 mg BID PO Last administered on 07/16/18at 08:31; Admin Dose 5 MG; Start 07/07/18 at 15:00 Enoxaparin Sodium (Lovenox) 30 mg DAILY SC Last administered on 07/15/18at 08:45; Admin Dose 30 MG; Start 07/09/18 at 09:00 Zinc Sulfate (Zinc Sulfate) 220 mg DAILY NGT Last administered on 07/16/18at 08:32; Admin Dose 220 MG; Start 07/10/18 at 13:30 Ferrous Sulfate (Ferrous Sulfate (Ec)) 325 mg DAILY PO Last administered on 07/16/18 08:30; Admin Dose 325 MG; Start 07/11/18 at 10:00 Insulin Aspart (Novolog Insulin Pen) NOVOLOG *MODERATE* ALGORITHM AC MEALS AND BEDTIME SC Last administered on 07/16/18at 12:00; Admin Dose 6 UNIT; Start 07/15/18 at 11:20 Dextrose/Sodium Chloride 1,000 ml @ 50 mls/hr Q20H IV Last administered on 07/16/18at 11:23; Admin Dose 50 MLS/HR; Start 07/16/18 at 11:30 GINA SUTTON MD Jul 16, 2018 15:00
--- NOTE | 2018-07-16 20:06 | PREAC ---
Date/Time of Note Date/Time of Note DATE: 07/16/18 TIME: 20:05 Anesthesia Eval and Record Evaluation Time Pre-Procedure Interview DATE: 07/16/18 TIME: 20:05 Age 52 Sex male NPO: 8 hrs Preoperative diagnosis LEFT FOOT GANGRENE Planned procedure LEFT 3RD TOE AMPUTATION Past Medical History Past Medical History: Includes Cardio: HTN Endo: Diabetes Surgery & Anesthesia Issues No known issue Meds Anticoagulation: Yes Beta Saide within 24 hr: Yes Active Scripts Linagliptin (TRADJENTA) 5 Mg Tablet, 5 MG PO DAILY for 30 Days, TAB Prov:GINA SUTTON MD 03/18/18 Current Medications Acetaminophen/ Hydrocodone Bitart ([place] (5/325)) 1 tab Q4H PRN PO MODERATE PAIN LEVEL 4-6; Start 07/04/18 at 01:30 Pantoprazole (Protonix Tab) 40 mg DAILY@06 PO Last administered on 07/16/18at 06:33; Admin Dose 40 MG; Start 07/04/18 at 06:00 Acetaminophen (Tylenol Tab) 650 mg Q6H PRN PO MILD PAIN(1-3)OR ELEVATED TEMP Last administered on 07/14/18at 03:51; Admin Dose 650 MG; Start 07/04/18 at 01:30 Clonidine (Catapres) 0.1 mg TID PO Last administered on 07/16/18at 08:32; Admin Dose 0.1 MG; Start 07/04/18 at 09:00 Clonidine (Catapres) 0.1 mg Q6H PRN PO ELEVATED BLOOD PRESSURE Last administered on 07/04/18at 01:47; Admin Dose 0.1 MG; Start 07/04/18 at 01:30 Ceftriaxone Sodium 50 ml @ 100 mls/hr Q24H IVPB Last administered on 07/16/18at 09:42; Admin Dose 100 MLS/HR; Start 07/04/18 at 09:00 Miscellaneous Information 1 ea NOTE XX ; Start 07/04/18 at 02:00 Glucose (Glutose) 15 gm Q15M PRN PO DECREASED GLUCOSE; Start 07/04/18 at 02:00 Glucose (Glutose) 22.5 gm Q15M PRN PO DECREASED GLUCOSE; Start 07/04/18 at 02:00 Dextrose (D50w Syringe) 25 ml Q15M PRN IV DECREASED GLUCOSE; Start 07/04/18 at 02:00 Dextrose (D50w Syringe) 50 ml Q15M PRN IV DECREASED GLUCOSE; Start 07/04/18 at 02:00 Glucagon (Glucagen) 1 mg Q15M PRN IM DECREASED GLUCOSE; Start 07/04/18 at 02:00 Glucose (Glutose) 15 gm Q15M PRN BUCCAL DECREASED GLUCOSE; Start 07/04/18 at 02:00 Bisacodyl (Dulcolax) 10 mg BID PRN PO CONSTIPATION; Start 07/04/18 at 01:30 Miscellaneous Information (Pending Santyl Order For Wound Care) This patient mora... PRN PRN XX WOUND CARE; Start 07/04/18 at 02:00 Pentoxifylline (Trental) 400 mg TID PO Last administered on 07/16/18 08:31; Admin Dose 400 MG; Start 07/04/18 at 21:00 Linagliptin (Tradjenta) 5 mg DAILY PO Last administered on 07/16/18 08:30; Admin Dose 5 MG; Start 07/04/18 at 14:00 Amlodipine Besylate (Norvasc) 5 mg BID PO Last administered on 07/16/18 08:31; Admin Dose 5 MG; Start 07/07/18 at 15:00 Enoxaparin Sodium (Lovenox) 30 mg DAILY SC Last administered on 07/15/18at 08:45; Admin Dose 30 MG; Start 07/09/18 at 09:00 Zinc Sulfate (Zinc Sulfate) 220 mg DAILY NGT Last administered on 07/16/18 08:32; Admin Dose 220 MG; Start 07/10/18 at 13:30 Ferrous Sulfate (Ferrous Sulfate (Ec)) 325 mg DAILY PO Last administered on 07/16/18 08:30; Admin Dose 325 MG; Start 07/11/18 at 10:00 Insulin Aspart (Novolog Insulin Pen) NOVOLOG *MODERATE* ALGORITHM AC MEALS AND BEDTIME SC Last administered on 07/16/18 17:12; Admin Dose 2 UNIT; Start 07/15/18 at 11:20 Dextrose/Sodium Chloride 1,000 ml @ 50 mls/hr Q20H IV Last administered on 07/16/18at 11:23; Admin Dose 50 MLS/HR; Start 07/16/18 at 11:30 Meds reviewed: Yes Allergies Coded Allergies: No Known Allergy (Unverified , 07/04/18) Allergies Reviewed: Yes Labs/Studies Labs Reviewed: Reviewed by anesthesiologist Result Diagram: 07/15/18 0559 07/16/18 0708 Laboratory Tests 07/16/18 07:08 test: N/A Pre-procedure Exam Last vitals Vital Signs Date Temp Pulse Resp B/P (MAP) Pulse Ox O2 O2 Flow FiO2 Time Delivery Rate 07/16/18 98.1 75 16 148/84 97 Room Air 14:00 (105) Airway: Adequate mouth opening, Adequate thyromental dist Mallampati: Mallampati II Teeth: Abnormal (UPPER PARTIAL DENTURE, SEVERAL MISSING TEETH) Lung: Normal Heart: Normal ASA Physical Status ASA physical status: 3 Emergency: None Planned Anesthetic General/MAC: MAC Planned Pain Management Parenteral pain med Pre-operative Attestations Prior to commencing anesthesia and surgery, the patient was re-evaluated, there was verification of: *The patient's identity *The results of appropriate recent lab work and preoperative vital signs *The above evaluation not changing prior to induction *Anesthetic plan, risk benefits, alternative and complications discussed with patient/family; questions answered; patient/family understands, accepts and wishes to proceed. Micky Mckeon M.D. Jul 16, 2018 20:06
[2018-07-16] MEDS ORDERED: LABETALOL HCL 20MG INJ IV PRN (20:30)
[2018-07-16] MEDS ORDERED: EPHEDrine SULFATE 50 MG/5 ML SYG IV PRN (20:30)
[2018-07-16] MEDS ORDERED: DIPHENHYDRAMINE 50 MG INJ IV PRN (20:30)
[2018-07-16] MEDS ORDERED: MEPERIDINE 25 MG INJ IV PRN (20:30)
[2018-07-16] MEDS ORDERED: hydrALAzine 20 MG INJ IV PRN (20:30)
[2018-07-16] MEDS ORDERED: TRIMETHOBENZAMIDE 100 MG/ML VIAL IM PRN (20:30)
[2018-07-16] MEDS ORDERED: OXYCODONE/ACETAMINOPHEN (5/325) TAB PO PRN ×2 (20:30)
[2018-07-16] MEDS ORDERED: HYDROmorphONE 1 MG/5 ML IV SYRINGE IV PRN ×3 (20:30)
[2018-07-16] MEDS ORDERED: IPRATROPIUM (NEB) 0.5 MG/2.5 ML AMP HHN PRN (20:30)
[2018-07-16] MEDS ORDERED: FENTAnyl 50 MCG/ML VIAL IV PRN ×3 (20:30)
[2018-07-16] MEDS ORDERED: MIDAZOLAM 1 MG/ML 2 ML INJ IV PRN (20:30)
[2018-07-16] MEDS ORDERED: ONDANSETRON 4 MG INJ IV PRN (20:30)
[2018-07-16] MEDS ORDERED: ALBUTEROL 0.083% (NEB) 2.5 MG/3 ML AMP HHN PRN (20:30)
[2018-07-16] MEDS ORDERED: POLYMYXIN B 500000 UNIT INJ ONE (20:41)
[2018-07-16] MEDS ORDERED: BUPIVACAINE 0.5% (SDV) 30 ML INJ ONE (20:56)
[2018-07-16] MEDS ORDERED: LIDOCAINE 2% (MDV) 20 ML INJ ONE (20:56)
[2018-07-16] MEDS ORDERED: hydrALAzine 20 MG INJ ONE (21:02)
--- NOTE | 2018-07-16 21:39 | PAC ---
Date/Time of Note Date/Time of Note DATE: 07/16/18 TIME: 21:39 Post-Anesthesia Notes Post-Anesthesia Note Last documented vital signs Vital Signs Date Temp Pulse Resp B/P (MAP) Pulse Ox O2 O2 Flow FiO2 Time Delivery Rate 07/16/18 98.1 75 16 148/84 97 Room Air 14:00 (105) Activity: WNL Respiratory function: WNL Cardiovascular function: WNL Mental status: Baseline Pain reasonably controlled: Yes Hydration appropriate: Yes Nausea/Vomiting absent: Yes Micky Mckeon M.D. Jul 16, 2018 21:39
--- NOTE | 2018-07-16 21:43 | OPR ---
Date/Time of Note Date/Time of Note DATE: 07/16/18 TIME: 21:35 Operative Report Procedure Date: Jul 16, 2018 Preoperative Diagnosis Necrotic open wound of the right foot Gangrene left third toe Status post amputation of left fourth and fifth toes in the past Peripheral vascular disease Diabetes mellitus Peripheral neuropathy Postoperative Diagnosis Necrotic open wound of the right foot Gangrene left third toe Status post amputation of left fourth and fifth toes in the past Peripheral vascular disease Diabetes mellitus Peripheral neuropathy Operation/Procedure Performed 1. Amputation of the left third toe 2. Excisional debridement right foot necrotic open wound measuring 5 x 3 cm to the level of subcutaneous tissue Surgeon see signature line Photoengraver Apprentice None Anesthesia Type: MAC Estimated Blood Loss: minimal Transfusion none Specimen Left third toe Grafts/Implants none Complications none Pt Condition Post Procedure: stable Disposition: PACU Indications This is a pleasant 52-year-old male patient who has been suffering with necrotic open wound of the right foot with malodor, worsening while in the hospital along with gangrenous changes to the left third toe requiring amputation. Patient has had previous amputation of the left fourth and fifth toe secondary to gangrenous changes and has been recently hospitalized for infection in both feet. Patient has had peripheral vascular disease and has undergone lower extremity arterial intervention. Risks and complications of this type of surgery was discussed with patient in great detail. Risks and complications discussed include, but are not limited to, postoperative infection, postoperative pain, chronic pain and disability, hardware failure, failure of surgery to correct the problem, need for additional surgical procedures, deep venous thrombosis, gait disturbance, problems with shoegear, limitation of activities, limb loss and loss of life. Patient understands the discussion and agrees to the procedure. An informed consent was obtained, signed and placed in the chart. No guarantee or warrantee was given or implied as to the outcome of the procedure either in verbal or written form. Procedure Description The patient was seen in the preoperative unit. The proposed surgery was discussed with patient in great detail. Risks and complications of this type of surgery was discussed with patient in great detail. Opportunity was given to patient to ask questions and all questions were answered. The patient acknowledges understanding of the discussion. An informed consent was then obtained, signed and placed in the chart. Patient was taken to the operating room and was placed on the operating table in the supine position. All bony prominences were padded properly. A timeout was called by the circulating nurse. Everyone in the operating room was agreeable to the timeout. The patient was then placed under IV sedation by the anesthesio logist. I injected the left and right foot with 20 cc of one-to-one mixture of 2% lidocaine plain and 0.5% Marcaine plain. Bilateral feet were scrubbed, prepped, and draped in the usual aseptic manner. No tourniquet was used. Procedure #1: Amputation left third toe Attention was directed to the left third toe. A fishmouth incision was made using a #15 blade down to the proximal phalanx. Bleeders were cauterized as necessary using electrocautery. The toe was dissected to the level of the metatarsophalangeal joint and disarticulated from the joint and passed to the back table. Bleeders were cauterized as needed. Copious amounts of sterile normal saline was used to irrigate the wound and the wound was closed primarily using 2-0 nylon in simple suture technique. Procedure #2: Excisional debridement of open wound of the right foot measuring 5 x 3 cm to the level of bleeding subcutaneous tissue Attention was next directed to the right foot. I used a #15 blade to debride the necrotic tissue to bleeding subcutaneous tissue. Next, a Versajet was utilized to do fine debridement. Sterile dressing was applied to both the right and left feet. The patient tolerated the procedure and anesthesia well. He was transferred to the recovery room with vital signs stable vascular status intact to the remaining left foot and the right foot. The patient will be sent back to the floor after postoperative monitoring. Postoperative orders written. Patient will be followed in-house. Prognosis is guarded. He may require further proximal amputation. He may be having further necrosis secondary to peripheral vascular disease which is progressing. JOSE A HIGUERA DPM Jul 16, 2018 21:43
--- NOTE | 2018-07-16 21:43 | PN ---
Date/Time of Note Date/Time of Note DATE: 07/16/18 TIME: 21:43 Assessment/Plan Lines/Catheters IV C[facility] Type (from [facility]): Saline Lock [place] in Place (from [facility]): No Assessment/Plan Problems: (1) Osteomyelitis Status: Acute Qualifiers: Osteomyelitis type: unspecified type Osteomyelitis location: foot Laterality: right Qualified Codes: M86.9 - Osteomyelitis, unspecified (2) Open wound of left foot Qualifiers: Encounter type: initial encounter Qualified Codes: S91.302A - Unspecified open wound, left foot, initial encounter (3) Gangrene of right foot Status: Acute (4) Diabetes, polyneuropathy (5) Peripheral vascular disease (6) Gangrene of left foot Assessment/Plan Patient is scheduled for surgical debridement of the right foot and amputation of the left third toe today. Subjective 24 Hr Interval Summary Patient was seen at bedside. Patient is in no acute distress. Denies overnight adverse events. Denies fever, chills, nausea or vomiting. Denies recent trauma. Pain Control: well controlled Exam/Review of Systems Vital Signs Vitals Vital Signs Date Temp Pulse Resp B/P (MAP) Pulse Ox O2 O2 Flow FiO2 Time Delivery Rate 07/23/18 98.3 66 18 127/82 97 20:00 (97) 07/23/18 Room Air 12:44 07/23/18 4.0 12:34 Intake and Output 07/23/18 07/23/18 07/24/18 1515:00 23:00 07:00 IntakeIntake Total 1000 ml 935 ml OutputOutput Total 602 ml BalanceBalance 398 ml 935 ml Exam Free Text/Dictation NO major changes noted on exam today. Results Result Diagram: 07/22/18 0710 07/22/18 0710 JOSE A HIGUERA DPM Jul 16, 2018 21:43
[2018-07-17 02:00] VITALS: BP 150/88; PULSE 83; RESP 18
[2018-07-17] MEDS: PANTOPRAZOLE (EC) 40 MG TAB PO SCH (07:22)
[2018-07-17] MEDS: DEXTROSE 5%-0.45% NACL 1,000 ML IV SCH (07:30)
[2018-07-17 08:00] VITALS: BP 153/85; PULSE 79; RESP 18
[2018-07-17] MEDS: ACETAMINOPHEN 325 MG TAB PO PRN (08:46)
[2018-07-17] MEDS: LINAGLIPTIN 5 MG TABLET PO SCH (08:48)
[2018-07-17] MEDS: AMLODIPINE 5 MG TAB PO SCH ×2 (08:48→20:16)
[2018-07-17] MEDS: FERROUS SULFATE (EC) 325 MG TAB PO SCH (08:48)
[2018-07-17] MEDS: PENTOXIFYLLINE (SR) 400 MG TAB PO SCH ×3 (08:48→20:16)
[2018-07-17] MEDS: INSULIN ASPART [NOVOLOG] 3 ML PEN SC SCH ×5 (08:51→20:17)
[2018-07-17] MEDS: ENOXAPARIN 30 MG/0.3 ML SYG SC SCH (08:53)
[2018-07-17] MEDS: ZINC SULFATE 220 MG CAP NGT SCH (08:55)
--- NOTE | 2018-07-17 10:23 | PN ---
Date/Time of Note Date/Time of Note DATE: 07/17/18 TIME: 10:22 Assessment/Plan VTE Prophylaxis Risk score (from Ns)>0 risk: 3 SCD applied (from Ns): No SCD contraindicated: other Pharmacological prophylaxis: LMWH Lines/Catheters IV Catheter Type (from [facility]): Peripheral IV Urinary Cath still in place: No Assessment/Plan Hospital Course 1. Left foot cellulitis. Discoloration of 2 and 3 toes. S/p amputation of the left fourth digit and transmetatarsal amputation of the fifth digit. 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 On Xray soft tissue swelling. Vascular calcification consistent with atherosclerotic disease. Healing fracture at the base of the second metatarsal. S/p amputation of the left third toe with excisional debridement right foot necrotic open wound measuring 5 x 3 cm to the level of subcutaneous tissue by dr Betancur 07/16/2018 2. Anemia 3. Overweight 4. DANIELLE, creatinine 1.42 today from 1.97 on hospitalization. Pt creatinine was 1.73 in [facility] February 2018 and then return to normal 5. DM type II with diabetic neuropathy 6. Hypertension 7. Right foot sole wound 8. Peripheral vascular disease. On Duplex US 09/2017 Monophasic wave forms in b ilateral posterior tibial arteries and dorsalis pedis arteries consistent with a significant bilateral infrapopliteal stenosis. S/p abdominal aortogram and third order degree angiogram left lower extremity by dr De La Rosa 07/13/2018 Assessment/Plan -wound care -febrile today - s/p aortogram peripheral vascular disease -Hold Lasix in order to prevent contrast nephropathy - cw Rocephin - Monitor fevers -Continue with pentoxifylline -cw clonidine and Norvasc for blood pressure -cw with IV iron - hold nephrotoxic agents -strict I's and O' - GI prophylaxis Protonix Result Diagram: 07/17/18 0747 07/17/18 0747 Results 24hrs Laboratory Tests Test 07/16/18 11:55 07/16/18 17:09 07/16/18 22:22 07/17/18 07:47 Bedside Glucose 248 H 176 136 White Blood Count 6.8 # Red Blood Count 2.90 L Hemoglobin 9.0 L Hematocrit 25.9 L Mean Corpuscular 89.3 Volume Mean Corpuscular 31.0 Hemoglobin Mean Corpuscular 34.7 Hemoglobin Concent Red Cell 12.1 Distribution Width Platelet Count 251 Mean Platelet Volume 9.5 Immature 0.400 Granulocytes % Neutrophils % 72.3 Lymphocytes % 19.0 Monocytes % 6.7 Eosinophils % 1.2 Basophils % 0.4 Nucleated Red Blood 0.0 Cells % Immature 0.030 Granulocytes # Neutrophils # 4.9 Lymphocytes # 1.3 Monocytes # 0.5 Eosinophils # 0.1 Basophils # 0.0 Nucleated Red Blood 0.0 Cells # Sodium Level 141 Potassium Level 3.9 Chloride Level 104 Carbon Dioxide Level 29 Anion Gap 8 Blood Urea Nitrogen 17 Creatinine 1.42 H Est Glomerular 52 L Filtrat Rate mL/min Glucose Level 162 Calcium Level 8.6 Phosphorus Level 4.2 Magnesium Level 1.9 Test 07/17/18 08:23 Bedside Glucose 167 Subjective 24 Hr Interval Summary Constitutional: no complaints Exam/Review of Systems Exam Vitals Vital Signs Date Temp Pulse Resp B/P (MAP) Pulse Ox O2 O2 Flow FiO2 Time Delivery Rate 07/17/18 100.2 08:46 07/17/18 79 18 153/85 96 08:00 (107) 07/16/18 Room Air 22:24 07/16/18 2.0 21:54 Intake and Output 07/16/18 07/16/18 07/17/18 1414:59 22:59 06:59 IntakeIntake Total 760 ml 750 ml OutputOutput Total 2 ml BalanceBalance 758 ml 750 ml Constitutional: alert, oriented Psych: no complaints Head: normocephalic Eyes: nl conjunctiva Neck: supple Gastrointestinal: soft Musculoskeletal: swelling (left foot 2 nd toe), other (right foot wound and left foot amputation 3-5 toes) Results Results 24hrs Laboratory Tests Test 07/16/18 11:55 07/16/18 17:09 07/16/18 22:22 07/17/18 07:47 Bedside Glucose 248 H 176 136 White Blood Count 6.8 # Red Blood Count 2.90 L Hemoglobin 9.0 L Hematocrit 25.9 L Mean Corpuscular 89.3 Volume Mean Corpuscular 31.0 Hemoglobin Mean Corpuscular 34.7 Hemoglobin Concent Red Cell 12.1 Distribution Width Platelet Count 251 Mean Platelet Volume 9.5 Immature 0.400 Granulocytes % Neutrophils % 72.3 Lymphocytes % 19.0 Monocytes % 6.7 Eosinophils % 1.2 Basophils % 0.4 Nucleated Red Blood 0.0 Cells % Immature 0.030 Granulocytes # Neutrophils # 4.9 Lymphocytes # 1.3 Monocytes # 0.5 Eosinophils # 0.1 Basophils # 0.0 Nucleated Red Blood 0.0 Cells # Sodium Level 141 Potassium Level 3.9 Chloride Level 104 Carbon Dioxide Level 29 Anion Gap 8 Blood Urea Nitrogen 17 Creatinine 1.42 H Est Glomerular 52 L Filtrat Rate mL/min Glucose Level 162 Calcium Level 8.6 Phosphorus Level 4.2 Magnesium Level 1.9 Test 07/17/18 08:23 Bedside Glucose 167 Medications Medication Current Medications Acetaminophen/ Hydrocodone Bitart ([place] (5/325)) 1 tab Q4H PRN PO MODERATE PAIN LEVEL 4-6; Start 07/04/18 at 01:30 Pantoprazole (Protonix Tab) 40 mg DAILY@06 PO Last administered on 07/17/18at 07:22; Admin Dose 40 MG; Start 07/04/18 at 06:00 Acetaminophen (Tylenol Tab) 650 mg Q6H PRN PO MILD PAIN(1-3)OR ELEVATED TEMP Last administered on 07/17/18at 08:46; Admin Dose 650 MG; Start 07/04/18 at 01:30 Clonidine (Catapres) 0.1 mg TID PO Last administered on 07/17/18at 08:48; Admin Dose 0.1 MG; Start 07/04/18 at 09:00 Clonidine (Catapres) 0.1 mg Q6H PRN PO ELEVATED BLOOD PRESSURE Last administered on 07/04/18at 01:47; Admin Dose 0.1 MG; Start 07/04/18 at 01:30 Ceftriaxone Sodium 50 ml @ 100 mls/hr Q24H IVPB Last administered on 07/16/18at 09:42; Admin Dose 100 MLS/HR; Start 07/04/18 at 09:00 Miscellaneous Information 1 ea NOTE XX ; Start 07/04/18 at 02:00 Glucose (Glutose) 15 gm Q15M PRN PO DECREASED GLUCOSE; Start 07/04/18 at 02:00 Glucose (Glutose) 22.5 gm Q15M PRN PO DECREASED GLUCOSE; Start 07/04/18 at 02:00 Dextrose (D50w Syringe) 25 ml Q15M PRN IV DECREASED GLUCOSE; Start 07/04/18 at 02:00 Dextrose (D50w Syringe) 50 ml Q15M PRN IV DECREASED GLUCOSE; Start 07/04/18 at 02:00 Glucagon (Glucagen) 1 mg Q15M PRN IM DECREASED GLUCOSE; Start 07/04/18 at 02:00 Glucose (Glutose) 15 gm Q15M PRN BUCCAL DECREASED GLUCOSE; Start 07/04/18 at 02:00 Bisacodyl (Dulcolax) 10 mg BID PRN PO CONSTIPATION; Start 07/04/18 at 01:30 Miscellaneous Information (Pending Santyl Order For Wound Care) This patient mora... PRN PRN XX WOUND CARE; Start 07/04/18 at 02:00 Pentoxifylline (Trental) 400 mg TID PO Last administered on 07/17/18 08:48; Admin Dose 400 MG; Start 07/04/18 at 21:00 Linagliptin (Tradjenta) 5 mg DAILY PO Last administered on 07/17/18 08:48; Admin Dose 5 MG; Start 07/04/18 at 14:00 Amlodipine Besylate (Norvasc) 5 mg BID PO Last administered on 07/17/18 08:48; Admin Dose 5 MG; Start 07/07/18 at 15:00 Enoxaparin Sodium (Lovenox) 30 mg DAILY SC Last administered on 07/17/18 08:53; Admin Dose 30 MG; Start 07/09/18 at 09:00 Zinc Sulfate (Zinc Sulfate) 220 mg DAILY NGT Last administered on 07/17/18 08:55; Admin Dose 220 MG; Start 07/10/18 at 13:30 Ferrous Sulfate (Ferrous Sulfate (Ec)) 325 mg DAILY PO Last administered on 07/17/18 08:48; Admin Dose 325 MG; Start 07/11/18 at 10:00 Insulin Aspart (Novolog Insulin Pen) NOVOLOG *MODERATE* ALGORITHM AC MEALS AND BEDTIME SC Last administered on 07/17/18 08:51; Admin Dose 2 UNIT; Start 07/15/18 at 11:20 Dextrose/Sodium Chloride 1,000 ml @ 50 mls/hr Q20H IV Last administered on 07/16/18 11:23; Admin Dose 50 MLS/HR; Start 07/16/18 at 11:30 TEODORO RIDER Jul 17, 2018 10:23
[2018-07-17] MEDS: CEFTRIAXONE 1 GM/50 ML (PMX) 50 ML IVPB SCH (10:44)
--- NOTE | 2018-07-17 11:01 | CONS ---
Assessment/Plan Assessment/Plan Hospital Course (Demo Recall) No acute events, looks comfortable Antimicrobials: Rocephin Micro: wound cx + HÉCTOR PHYSICAL EXAMINATION: GENERAL: Well-nourished, well-developed 52-year-old man who is awake, in no distress. HEENT: Head atraumatic, normocephalic. NECK: Supple. CHEST: Rise symmetrical. Breath sounds clear. HEART: S1, S2. ABDOMEN: Soft, bowel tones present. EXTREMITIES: Left foot erythema, edema and pressure sores on his third, second toe, right foot with plantar necrotic skin breakdown. Assessment: 1. Left foot HÉCTOR cellulitis/osteomyelitis ==>s/p amputation of the left third toe and debridement 07/16/18 2. Diabetes 3. Diabetic neuropathy 4. Hypertension 5. Peripheral vascular disease, status post angiogram Plan: Patient remains stable, continue antibiotics, will dw podiatry if he needs to continue treatment for OM Consultation Date/Type/Reason Admit Date/Time Jul 03, 2018 at 22:10 Initial Consult Date 07/04/18 Type of Consult id Date/Time of Note DATE: 07/17/18 TIME: 10:59 Exam/Review of Systems Exam Vitals Vital Signs Date Temp Pulse Resp B/P (MAP) Pulse Ox O2 O2 Flow FiO2 Time Delivery Rate 07/17/18 98.7 09:31 07/17/18 79 18 153/85 96 08:00 (107) 07/16/18 Room Air 22:24 07/16/18 2.0 21:54 Intake and Output 07/16/18 07/16/18 07/17/18 1515:00 23:00 07:00 IntakeIntake Total 760 ml 750 ml OutputOutput Total 2 ml BalanceBalance 758 ml 750 ml Results Result Diagram: 07/17/18 0747 07/17/18 0747 Results 24hrs Laboratory Tests Test 07/16/18 11:55 07/16/18 17:09 07/16/18 22:22 07/17/18 07:47 Bedside Glucose 248 H 176 136 White Blood Count 6.8 # Red Blood Count 2.90 L Hemoglobin 9.0 L Hematocrit 25.9 L Mean Corpuscular 89.3 Volume Mean Corpuscular 31.0 Hemoglobin Mean Corpuscular 34.7 Hemoglobin Concent Red Cell 12.1 Distribution Width Platelet Count 251 Mean Platelet Volume 9.5 Immature 0.400 Granulocytes % Neutrophils % 72.3 Lymphocytes % 19.0 Monocytes % 6.7 Eosinophils % 1.2 Basophils % 0.4 Nucleated Red Blood 0.0 Cells % Immature 0.030 Granulocytes # Neutrophils # 4.9 Lymphocytes # 1.3 Monocytes # 0.5 Eosinophils # 0.1 Basophils # 0.0 Nucleated Red Blood 0.0 Cells # Sodium Level 141 Potassium Level 3.9 Chloride Level 104 Carbon Dioxide Level 29 Anion Gap 8 Blood Urea Nitrogen 17 Creatinine 1.42 H Est Glomerular 52 L Filtrat Rate mL/min Glucose Level 162 Calcium Level 8.6 Phosphorus Level 4.2 Magnesium Level 1.9 Test 07/17/18 08:23 Bedside Glucose 167 Medications Medication Current Medications Acetaminophen/ Hydrocodone Bitart ([place] (5/325)) 1 tab Q4H PRN PO MODERATE PAIN LEVEL 4-6; Start 07/04/18 at 01:30 Pantoprazole (Protonix Tab) 40 mg DAILY@06 PO Last administered on 07/17/18at 07:22; Admin Dose 40 MG; Start 07/04/18 at 06:00 Acetaminophen (Tylenol Tab) 650 mg Q6H PRN PO MILD PAIN(1-3)OR ELEVATED TEMP Last administered on 07/17/18at 08:46; Admin Dose 650 MG; Start 07/04/18 at 01:30 Clonidine (Catapres) 0.1 mg Q6H PRN PO ELEVATED BLOOD PRESSURE Last administered on 07/04/18at 01:47; Admin Dose 0.1 MG; Start 07/04/18 at 01:30 Ceftriaxone Sodium 50 ml @ 100 mls/hr Q24H IVPB Last administered on 07/17/18at 10:44; Admin Dose 100 MLS/HR; Start 07/04/18 at 09:00 Miscellaneous Information 1 ea NOTE XX ; Start 07/04/18 at 02:00 Glucose (Glutose) 15 gm Q15M PRN PO DECREASED GLUCOSE; Start 07/04/18 at 02:00 Glucose (Glutose) 22.5 gm Q15M PRN PO DECREASED GLUCOSE; Start 07/04/18 at 02:00 Dextrose (D50w Syringe) 25 ml Q15M PRN IV DECREASED GLUCOSE; Start 07/04/18 at 02:00 Dextrose (D50w Syringe) 50 ml Q15M PRN IV DECREASED GLUCOSE; Start 07/04/18 at 02:00 Glucagon (Glucagen) 1 mg Q15M PRN IM DECREASED GLUCOSE; Start 07/04/18 at 02:00 Glucose (Glutose) 15 gm Q15M PRN BUCCAL DECREASED GLUCOSE; Start 07/04/18 at 02:00 Bisacodyl (Dulcolax) 10 mg BID PRN PO CONSTIPATION; Start 07/04/18 at 01:30 [facility]isc[facility] This patient mora... PRN PRN XX WOUND CARE; Start 07/04/18 at 02:00 Pentoxifylline (Trental) 400 mg TID PO Last administered on 07/17/18 08:48; Admin Dose 400 MG; Start 07/04/18 at 21:00 Linagliptin (Tradjenta) 5 mg DAILY PO Last administered on 07/17/18 08:48; Admin Dose 5 MG; Start 07/04/18 at 14:00 Amlodipine Besylate (Norvasc) 5 mg BID PO Last administered on 07/17/18 08:48; Admin Dose 5 MG; Start 07/07/18 at 15:00 Enoxaparin Sodium (Lovenox) 30 mg DAILY SC Last administered on 07/17/18 08:53; Admin Dose 30 MG; Start 07/09/18 at 09:00 Ferrous Sulfate (Ferrous Sulfate (Ec)) 325 mg DAILY PO Last administered on 07/17/18 08:48; Admin Dose 325 MG; Start 07/11/18 at 10:00 Insulin Aspart (Novolog Insulin Pen) NOVOLOG *MODERATE* ALGORITHM AC MEALS AND BEDTIME SC Last administered on 07/17/18 08:51; Admin Dose 2 UNIT; Start 07/15/18 at 11:20 Dextrose/Sodium Chloride 1,000 ml @ 50 mls/hr Q20H IV Last administered on 07/16/18 11:23; Admin Dose 50 MLS/HR; Start 07/16/18 at 11:30 Zinc Sulfate (Zinc Sulfate) 220 mg DAILY PO ; Start 07/18/18 at 09:00 Clonidine (Catapres) 0.2 mg TID PO ; Start 07/17/18 at 13:00 ROXANNA SOMERS NP Jul 17, 2018 11:00
[2018-07-17 14:00] VITALS: BP 113/65; PULSE 71; RESP 18
[2018-07-17] MEDS: COLLAGENASE 5 GM (UD JAR) TOP SCH (18:12)
[2018-07-17 19:40] VITALS: BP 150/53; PULSE 81; RESP 20
[2018-07-18 02:12] VITALS: BP 140/80; PULSE 72; RESP 18
[2018-07-18] MEDS: PANTOPRAZOLE (EC) 40 MG TAB PO SCH (05:29)
[2018-07-18 08:06] VITALS: BP 143/79; PULSE 71; RESP 19
[2018-07-18] MEDS: ENOXAPARIN 30 MG/0.3 ML SYG SC SCH (09:05)
[2018-07-18] MEDS: INSULIN ASPART [NOVOLOG] 3 ML PEN SC SCH ×4 (09:05→20:12)
[2018-07-18] MEDS: CEFTRIAXONE 1 GM/50 ML (PMX) 50 ML IVPB SCH (09:09)
[2018-07-18] MEDS: AMLODIPINE 5 MG TAB PO SCH ×2 (09:09→20:13)
[2018-07-18] MEDS: COLLAGENASE 5 GM (UD JAR) TOP SCH (09:09)
[2018-07-18] MEDS: FERROUS SULFATE (EC) 325 MG TAB PO SCH (09:09)
[2018-07-18] MEDS: ZINC SULFATE 220 MG CAP PO SCH (09:10)
[2018-07-18] MEDS: LINAGLIPTIN 5 MG TABLET PO SCH (09:10)
[2018-07-18] MEDS: PENTOXIFYLLINE (SR) 400 MG TAB PO SCH ×3 (09:15→20:13)
--- NOTE | 2018-07-18 13:15 | PN ---
Date/Time of Note Date/Time of Note DATE: 07/18/18 TIME: 13:13 Assessment/Plan VTE Prophylaxis Risk score (from Ns)>0 risk: 2 SCD applied (from Ns): No SCD contraindicated: other Pharmacological prophylaxis: LMWH Lines/Catheters IV C[facility]ter Type (from [facility] [place] Urinary Cath still in place: No Assessment/Plan Hospital Course 1. Left foot cellulitis. Discoloration of 2 and 3 toes. S/p amputation of the left fourth digit and transmetatarsal amputation of the fifth digit. 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 On Xray soft tissue swelling. Vascular c alcification consistent with atherosclerotic disease. Healing fracture at the base of the second metatarsal. S/p amputation of the left third toe with excisional debridement right foot necrotic open wound measuring 5 x 3 cm to the level of subcutaneous tissue by dr Betancur 07/16/2018 2. Anemia 3. Overweight 4. DANIELLE, creatinine 1.5 today from 1.97 on hospitalization. Pt creatinine was 1.73 in [facility] February 2018 and then return to normal 5. DM type II with diabetic neuropathy 6. Hypertension 7. Right foot sole wound, s/p debridement 8. Peripheral vascular disease. On Duplex US 09/2017 Monophasic wave forms in bilateral posterior tibial arteries and dorsalis pedis arteries consistent with a significant bilateral infrapopliteal stenosis. S/p abdominal aortogram and third order degree angiogram left lower extremity by dr De La Rosa 07/13/2018 Assessment/Plan -wound care creatinine 1.5 goes up today -c/w Rocephine - s/p aortogram peripheral vascular disease -Hold Lasix in order to prevent contrast nephropathy - cw Rocephin - Monitor fevers -Continue with pentoxifylline -cw clonidine and Norvasc for blood pressure -cw with IV iron - hold nephrotoxic agents -strict I's and O' - GI prophylaxis Protonix Result Diagram: 07/18/18 0810 07/18/18 0810 Results 24hrs Laboratory Tests Test 07/17/18 17:08 07/17/18 20:14 07/18/18 08:09 07/18/18 08:10 Bedside Glucose 142 141 161 White Blood Count 8.2 # Red Blood Count 2.92 L Hemoglobin 9.0 L Hematocrit 26.2 L Mean Corpuscular 89.7 Volume Mean Corpuscular 30.8 Hemoglobin Mean Corpuscular 34.4 Hemoglobin Concent Red Cell 12.2 Distribution Width Platelet Count 250 Mean Platelet Volume 9.4 Immature 0.400 Granulocytes % Neutrophils % 78.2 H Lymphocytes % 13.6 L Monocytes % 5.9 Eosinophils % 1.5 Basophils % 0.4 Nucleated Red Blood 0.0 Cells % Immature 0.030 Granulocytes # Neutrophils # 6.4 Lymphocytes # 1.1 Monocytes # 0.5 Eosinophils # 0.1 Basophils # 0.0 Nucleated Red Blood 0.0 Cells # Sodium Level 140 Potassium Level 4.2 Chloride Level 105 Carbon Dioxide Level 26 Anion Gap 9 Blood Urea Nitrogen 19 Creatinine 1.53 H Est Glomerular 48 L Filtrat Rate mL/min Glucose Level 162 Calcium Level 8.7 Test 07/18/18 12:27 Bedside Glucose 246 H Exam/Review of Systems Exam Vitals Vital Signs Date Temp Pulse Resp B/P (MAP) Pulse Ox O2 O2 Flow FiO2 Time Delivery Rate 07/18/18 99.1 71 19 143/79 98 08:06 (100) 07/18/18 Room Air 02:12 07/16/18 2.0 21:54 Intake and Output 07/17/18 07/17/18 07/18/18 1515:00 23:00 07:00 IntakeIntake Total 690 ml 400 ml 450 ml OutputOutput Total 500 ml 450 ml 900 ml BalanceBalance 190 ml -50 ml -450 ml Constitutional: alert, oriented Psych: no complaints Neck: supple Respiratory: clear to auscultation Cardiovascular: regular rate and rhythm Gastrointestinal: soft Musculoskeletal: other (bilateral surgical dressig on both feet) Results Results 24hrs Laboratory Tests Test 07/17/18 17:08 07/17/18 20:14 07/18/18 08:09 07/18/18 08:10 Bedside Glucose 142 141 161 White Blood Count 8.2 # Red Blood Count 2.92 L Hemoglobin 9.0 L Hematocrit 26.2 L Mean Corpuscular 89.7 Volume Mean Corpuscular 30.8 Hemoglobin Mean Corpuscular 34.4 Hemoglobin Concent Red Cell 12.2 Distribution Width Platelet Count 250 Mean Platelet Volume 9.4 Immature 0.400 Granulocytes % Neutrophils % 78.2 H Lymphocytes % 13.6 L Monocytes % 5.9 Eosinophils % 1.5 Basophils % 0.4 Nucleated Red Blood 0.0 Cells % Immature 0.030 Granulocytes # Neutrophils # 6.4 Lymphocytes # 1.1 Monocytes # 0.5 Eosinophils # 0.1 Basophils # 0.0 Nucleated Red Blood 0.0 Cells # Sodium Level 140 Potassium Level 4.2 Chloride Level 105 Carbon Dioxide Level 26 Anion Gap 9 Blood Urea Nitrogen 19 Creatinine 1.53 H Est Glomerular 48 L Filtrat Rate mL/min Glucose Level 162 Calcium Level 8.7 Test 07/18/18 12:27 Bedside Glucose 246 H Medications Medication Current Medications Acetaminophen/ Hydrocodone Bitart ([place] (5/325)) 1 tab Q4H PRN PO MODERATE PAIN LEVEL 4-6; Start 07/04/18 at 01:30 Pantoprazole (Protonix Tab) 40 mg DAILY@06 PO Last administered on 07/18/18at 05:29; Admin Dose 40 MG; Start 07/04/18 at 06:00 Acetaminophen (Tylenol Tab) 650 mg Q6H PRN PO MILD PAIN(1-3)OR ELEVATED TEMP Last administered on 07/17/18at 08:46; Admin Dose 650 MG; Start 07/04/18 at 01:30 Clonidine (Catapres) 0.1 mg Q6H PRN PO ELEVATED BLOOD PRESSURE Last administered on 07/04/18at 01:47; Admin Dose 0.1 MG; Start 07/04/18 at 01:30 Ceftriaxone Sodium 50 ml @ 100 mls/hr Q24H IVPB Last administered on 07/18/18at 09:09; Admin Dose 100 MLS/HR; Start 07/04/18 at 09:00 Miscellaneous Information 1 ea NOTE XX ; Start 07/04/18 at 02:00 Glucose (Glutose) 15 gm Q15M PRN PO DECREASED GLUCOSE; Start 07/04/18 at 02:00 Glucose (Glutose) 22.5 gm Q15M PRN PO DECREASED GLUCOSE; Start 07/04/18 at 02:00 Dextrose (D50w Syringe) 25 ml Q15M PRN IV DECREASED GLUCOSE; Start 07/04/18 at 02:00 Dextrose (D50w Syringe) 50 ml Q15M PRN IV DECREASED GLUCOSE; Start 07/04/18 at 02:00 Glucagon (Glucagen) 1 mg Q15M PRN IM DECREASED GLUCOSE; Start 07/04/18 at 02:00 Glucose (Glutose) 15 gm Q15M PRN BUCCAL DECREASED GLUCOSE; Start 07/04/18 at 02:00 Bisacodyl (Dulcolax) 10 mg BID PRN PO CONSTIPATION; Start 07/04/18 at 01:30 Miscellaneous Information (Pending Santyl Order For Wound Care) This patient mora... PRN PRN XX WOUND CARE; Start 07/04/18 at 02:00 Pentoxifylline (Trental) 400 mg TID PO Last administered on 07/18/18 12:26; Admin Dose 400 MG; Start 07/04/18 at 21:00 Linagliptin (Tradjenta) 5 mg DAILY PO Last administered on 07/18/18 09:10; Admin Dose 5 MG; Start 07/04/18 at 14:00 Amlodipine Besylate (Norvasc) 5 mg BID PO Last administered on 07/18/18 09:09; Admin Dose 5 MG; Start 07/07/18 at 15:00 Enoxaparin Sodium (Lovenox) 30 mg DAILY SC Last administered on 07/18/18 09:05; Admin Dose 30 MG; Start 07/09/18 at 09:00 Ferrous Sulfate (Ferrous Sulfate (Ec)) 325 mg DAILY PO Last administered on 07/18/18 09:09; Admin Dose 325 MG; Start 07/11/18 at 10:00 Insulin Aspart (Novolog Insulin Pen) NOVOLOG *MODERATE* ALGORITHM AC MEALS AND BEDTIME SC Last administered on 07/18/18 12:35; Admin Dose 6 UNIT; Start 07/15/18 at 11:20 Zinc Sulfate (Zinc Sulfate) 220 mg DAILY PO Last administered on 07/18/18 09:10; Admin Dose 220 MG; Start 07/18/18 at 09:00 Clonidine (Catapres) 0.2 mg TID PO Last administered on 07/18/18 12:26; Admin Dose 0.2 MG; Start 07/17/18 at 13:00 Collagenase (Santyl) 1 applic DAILY TOP Last administered on 07/18/18 09:09; Admin Dose 1 APPLIC; Start 07/17/18 at 17:30 TEODORO RIDER 23, 2019 13:15
[2018-07-18 14:26] VITALS: BP 132/79; PULSE 65; RESP 18
--- NOTE | 2018-07-18 15:22 | CONS ---
Assessment/Plan Assessment/Plan Hospital Course (Demo Recall) No acute events, looks comfortable Antimicrobials: Rocephin Micro: wound cx + HÉCTOR PHYSICAL EXAMINATION: GENERAL: Well-nourished, well-developed 52-year-old man who is awake, in no distress. HEENT: Head atraumatic, normocephalic. NECK: Supple. CHEST: Rise symmetrical. Breath sounds clear. HEART: S1, S2. ABDOMEN: Soft, bowel tones present. EXTREMITIES: Left foot erythema, edema and pressure sores on his third, second toe, right foot with plantar necrotic skin breakdown. Assessment: 1. Left foot HÉCTOR cellulitis/osteomyelitis ==>s/p amputation of the left third toe and debridement 07/16/18 2. Diabetes 3. Diabetic neuropathy 4. Hypertension 5. Peripheral vascular disease, status post angiogram Plan: Patient remains stable, per discussion with podiatry patient needs to continue antibiotics for 6 weeks, wound culture was susceptible to fluoroquinolones, anticipate discharge on oral ciprofloxacin Consultation Date/Type/Reason Admit Date/Time Jul 03, 2018 at 22:10 Initial Consult Date 07/04/18 Type of Consult id Date/Time of Note DATE: 07/18/18 TIME: 15:20 Exam/Review of Systems Exam Vitals Vital Signs Date Temp Pulse Resp B/P (MAP) Pulse Ox O2 O2 Flow FiO2 Time Delivery Rate 07/18/18 97.5 65 18 132/79 98 14:26 (96) 07/18/18 Room Air 02:12 07/16/18 2.0 21:54 Intake and Output 07/17/18 07/17/18 07/18/18 1515:00 23:00 07:00 IntakeIntake Total 690 ml 400 ml 450 ml OutputOutput Total 500 ml 450 ml 900 ml BalanceBalance 190 ml -50 ml -450 ml Results Result Diagram: 07/18/18 0810 07/18/18 0810 Results 24hrs Laboratory Tests Test 07/17/18 17:08 07/17/18 20:14 07/18/18 08:09 07/18/18 08:10 Bedside Glucose 142 141 161 White Blood Count 8.2 # Red Blood Count 2.92 L Hemoglobin 9.0 L Hematocrit 26.2 L Mean Corpuscular 89.7 Volume Mean Corpuscular 30.8 Hemoglobin Mean Corpuscular 34.4 Hemoglobin Concent Red Cell 12.2 Distribution Width Platelet Count 250 Mean Platelet Volume 9.4 Immature 0.400 Granulocytes % Neutrophils % 78.2 H Lymphocytes % 13.6 L Monocytes % 5.9 Eosinophils % 1.5 Basophils % 0.4 Nucleated Red Blood 0.0 Cells % Immature 0.030 Granulocytes # Neutrophils # 6.4 Lymphocytes # 1.1 Monocytes # 0.5 Eosinophils # 0.1 Basophils # 0.0 Nucleated Red Blood 0.0 Cells # Sodium Level 140 Potassium Level 4.2 Chloride Level 105 Carbon Dioxide Level 26 Anion Gap 9 Blood Urea Nitrogen 19 Creatinine 1.53 H Est Glomerular 48 L Filtrat Rate mL/min Glucose Level 162 Calcium Level 8.7 Test 07/18/18 12:27 Bedside Glucose 246 H Medications Medication Current Medications Acetaminophen/ Hydrocodone Bitart ([place] (5/325)) 1 tab Q4H PRN PO MODERATE PAIN LEVEL 4-6; Start 07/04/18 at 01:30 Pantoprazole (Protonix Tab) 40 mg DAILY@06 PO Last administered on 07/18/18at 05:29; Admin Dose 40 MG; Start 07/04/18 at 06:00 Acetaminophen (Tylenol Tab) 650 mg Q6H PRN PO MILD PAIN(1-3)OR ELEVATED TEMP Last administered on 07/17/18at 08:46; Admin Dose 650 MG; Start 07/04/18 at 01:30 Clonidine (Catapres) 0.1 mg Q6H PRN PO ELEVATED BLOOD PRESSURE Last administered on 07/04/18at 01:47; Admin Dose 0.1 MG; Start 07/04/18 at 01:30 Ceftriaxone Sodium 50 ml @ 100 mls/hr Q24H IVPB Last administered on 07/18/18at 09:09; Admin Dose 100 MLS/HR; Start 07/04/18 at 09:00 Miscellaneous Information 1 ea NOTE XX ; Start 07/04/18 at 02:00 Glucose (Glutose) 15 gm Q15M PRN PO DECREASED GLUCOSE; Start 07/04/18 at 02:00 Glucose (Glutose) 22.5 gm Q15M PRN PO DECREASED GLUCOSE; Start 07/04/18 at 02:00 Dextrose (D50w Syringe) 25 ml Q15M PRN IV DECREASED GLUCOSE; Start 07/04/18 at 02:00 Dextrose (D50w Syringe) 50 ml Q15M PRN IV DECREASED GLUCOSE; Start 07/04/18 at 02:00 Glucagon (Glucagen) 1 mg Q15M PRN IM DECREASED GLUCOSE; Start 07/04/18 at 02:00 Glucose (Glutose) 15 gm Q15M PRN BUCCAL DECREASED GLUCOSE; Start 07/04/18 at 02:00 Bisacodyl (Dulcolax) 10 mg BID PRN PO CONSTIPATION; Start 07/04/18 at 01:30 Miscellaneous Information (Pending Santyl Order For Wound Care) This patient mora. .. PRN PRN XX WOUND CARE; Start 07/04/18 at 02:00 Pentoxifylline (Trental) 400 mg TID PO Last administered on 07/18/18 12:26; Admin Dose 400 MG; Start 07/04/18 at 21:00 Linagliptin (Tradjenta) 5 mg DAILY PO Last administered on 07/18/18 09:10; Admin Dose 5 MG; Start 07/04/18 at 14:00 Amlodipine Besylate (Norvasc) 5 mg BID PO Last administered on 07/18/18 09:09; Admin Dose 5 MG; Start 07/07/18 at 15:00 Enoxaparin Sodium (Lovenox) 30 mg DAILY SC Last administered on 07/18/18 09:05; Admin Dose 30 MG; Start 07/09/18 at 09:00 Ferrous Sulfate (Ferrous Sulfate (Ec)) 325 mg DAILY PO Last administered on 07/18/18 09:09; Admin Dose 325 MG; Start 07/11/18 at 10:00 Insulin Aspart (Novolog Insulin Pen) NOVOLOG *MODERATE* ALGORITHM AC MEALS AND BEDTIME SC Last administered on 07/18/18 12:35; Admin Dose 6 UNIT; Start 07/15/18 at 11:20 Zinc Sulfate (Zinc Sulfate) 220 mg DAILY PO Last administered on 07/18/18 09:10; Admin Dose 220 MG; Start 07/18/18 at 09:00 Clonidine (Catapres) 0.2 mg TID PO Last administered on 07/18/18 12:26; Admin Dose 0.2 MG; Start 07/17/18 at 13:00 Collagenase (Santyl) 1 applic DAILY TOP Last administered on 07/18/18 09:09; Admin Dose 1 APPLIC; Start 07/17/18 at 17:30 Mineral Oil (Mineral Oil) 30 ml DAILY PO ; Start 07/18/18 at 14:30 ROXANNA SOMERS NP Jul 18, 2018 15:22
[2018-07-18] MEDS: CIPROFLOXACIN 500 MG TAB PO SCH (17:05)
[2018-07-18] MEDS: MINERAL OIL 30ML CUP PO SCH (17:06)
[2018-07-18 19:51] VITALS: BP 156/91; PULSE 70; RESP 18
[2018-07-19 01:38] VITALS: BP 153/82; PULSE 74; RESP 18
[2018-07-19] MEDS: CIPROFLOXACIN 500 MG TAB PO SCH ×2 (05:57→17:04)
[2018-07-19] MEDS: PANTOPRAZOLE (EC) 40 MG TAB PO SCH (05:57)
[2018-07-19] MEDS: MINERAL OIL 30ML CUP PO SCH (08:17)
[2018-07-19] MEDS: LINAGLIPTIN 5 MG TABLET PO SCH (08:18)
[2018-07-19] MEDS: FERROUS SULFATE (EC) 325 MG TAB PO SCH (08:18)
[2018-07-19] MEDS: ZINC SULFATE 220 MG CAP PO SCH (08:18)
[2018-07-19] MEDS: COLLAGENASE 5 GM (UD JAR) TOP SCH (08:18)
[2018-07-19] MEDS: PENTOXIFYLLINE (SR) 400 MG TAB PO SCH ×3 (08:18→21:02)
[2018-07-19] MEDS: AMLODIPINE 5 MG TAB PO SCH ×2 (08:18→21:01)
[2018-07-19 08:19] VITALS: BP 141/85; PULSE 72; RESP 17
[2018-07-19] MEDS: ENOXAPARIN 30 MG/0.3 ML SYG SC SCH (08:22)
[2018-07-19] MEDS: INSULIN ASPART [NOVOLOG] 3 ML PEN SC SCH ×4 (08:24→21:01)
[2018-07-19] MEDS ORDERED: PENT400T9 PO (09:18)
[2018-07-19] MEDS ORDERED: CIPR500T4 PO (09:18)
[2018-07-19] MEDS ORDERED: CLON0.2T12 PO (09:18)
[2018-07-19] MEDS ORDERED: FER325 PO (09:18)
[2018-07-19] MEDS ORDERED: AMLO-145 PO (09:18)
--- NOTE | 2018-07-19 09:23 | PDOCDIS ---
Discharge Instructions CONDITION [id number] Patient Condition: [id number] Stable ACTIVITY: [id number] Activity Restrictions: [id number] Slowly Increase Activity Rest between Activity Avoid heavy lifting No Weight Bearing (left foot) [id number] Activity Restrictions Comment: Hrird9m walker FOLLOW UP/APPOINTMENTS Follow-up Plan Dr Betancur 1 week PCP for insulin injection supply 1 week REFERRALS Other Referrals [facility] nursing right foot dressing changes per hospital clean normal apply Santyl cream, put [place] and apply kerlix and Kiet Wrap, left foot keep dressing intact, no dressing changes TEODORO RIDER Jul 19, 2018 09:23
[2018-07-19] MEDS ORDERED: NOVO3I SC (09:24)
--- NOTE | 2018-07-19 09:25 | DS ---
Date/Time of Note Date/Time of Note DATE: 07/19/18 TIME: 09:25 Discharge Summary Admission/Discharge Info Admit Date/Time Jul 03, 2018 at 22:10 Discharge Date/Time Patient Condition: Stable Hx of Present Illness 52-year-old man with a long history of diabetic foot ulcers, foot osteomyelitis, status post left fifth and fourth toe amputation presents to ER with increasing pain, swelling, redness to both feet and purulent malodorous discharge from the sole of the left foot. He denies using antibiotics recently, he has had fever for 2 days. Pt reported that he seeng dr Betancur regularly and following with medicaions daily. He said he checks his BS and it is normal. On admission, vital signs were stable. The patient had left lower extremity edema with warmth, left foot with ulceration discoloration, foul smelling, some purulence on the skin of the right foot. The patient was started on IV vancomycin in ER. Foot x-ray was done that showed cellulitis and atherosclerotic changes. Surgical history: s/p L 4th AND 5th toe amputation Hospital Course 1. Left foot cellulitis. Discoloration of 2 and 3 toes. S/p amputation of the left fourth digit and transmetatarsal amputation of the fifth digit. 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 On Xray soft tissue swelling. Vascular calcification consistent with atherosclerotic disease. Healing fracture at the base of the second metatarsal. S/p amputation of the left third toe with excisional debridement right foot necrotic open wound measuring 5 x 3 cm to the level of subcutaneous tissue by dr Betancur 07/16/2018 2. Anemia 3. Overweight 4. DANIELLE, creatinine 1.5 today from 1.97 on hospitalization. Pt creatinine was 1.73 in [facility] February 2018 and then return to normal 5. DM type II with diabetic neuropathy 6. Hypertension 7. Right foot sole wound, s/p debridement 8. Peripheral vascular disease. On Duplex US 09/2017 Monophasic wave forms in bilateral posterior tibial arteries and dorsalis pedis arteries consistent with a significant bilateral infrapopliteal stenosis. S/p abdominal aortogram and third order degree angiogram left lower extremity by dr De La Rosa 07/13/2018 Home Meds Active Scripts Insulin Aspart* (Novolog Insulin Pen*) 100 Unit/Ml Soln, 0 UNIT SC AC MEALS AND BEDTIME for 30 Days Prov:TEODORO RIDER 07/19/18 Clonidine Hcl* (Catapres*) 0.2 Mg Tablet, 0.2 MG PO TID for 30 Days, TAB Prov:TEODORO RIDER 07/19/18 Amlodipine Besylate* (Amlodipine Besylate*) 5 Mg Tablet, 10 MG PO DAILY for 30 Days, TAB Prov:TERESO,TEODORO 07/19/18 Pentoxifylline* (Pentoxifylline*) 400 Mg Tablet.sa, 400 MG PO TID for 30 Days Prov:TEODORO RIDER 07/19/18 Ferrous Sulfate* (Ferrous Sulfate*) 325 Mg Tabec, 325 MG PO DAILY for 30 Days, TAB Prov:TEODORO RIDER 07/19/18 Ciprofloxacin Hcl* (Ciprofloxacin Hcl*) 500 Mg Tablet, 500 MG PO BID@18 for 42 Days, TAB Prov:TEODORO RIDER 07/19/18 Linagliptin (TRADJENTA) 5 Mg Tablet, 5 MG PO DAILY for 30 Days, TAB Prov:GINA SUTTON MD 03/18/18 Follow-up Plan Dr Betancur 1 week PCP for insulin injection supply 1 week Primary Care Provider Not On Staff Doctor Time spent on discharge: < 30 minutes Pending Labs Laboratory Tests Test 07/18/18 12:27 07/18/18 17:05 07/18/18 20:12 07/19/18 08:15 Bedside 246 164 142 157 Glucose mg/dL (70-220) mg/dL (70-220) mg/dL (70-220) mg/dL (70-220) Test 07/19/18 08:16 White Blood 7.6 Count 10^3/ul (4.8-10 .8) Red Blood 3.04 Count 10^6/ul (4.70-6 .10) Hemoglobin 9.4 g/dl (14.0-18.0 ) Hematocrit 27.2 % (42.0-52.0) Mean 89.5 Corpuscular fl (82.0-101.0) Volume Mean 30.9 Corpuscular pg (29.0-33.0) Hemoglobin Mean 34.6 Corpuscular g/dl (32.0-37.0 Hemoglobin Conc ) ent Red Cell 12.0 Distribution % (11.5-14.5) Width Platelet Count 245 10^3/UL (140-41 5) Mean Platelet 9.5 Volume fl (7.4-10.4) Immature 0.400 Granulocytes % % (0.001-0.429) Neutrophils % 78.0 % (39.0-77.0) Lymphocytes % 13.4 % (15.0-51.0) Monocytes % 6.1 % (0.0-11.0) Eosinophils % 1.7 % (0.0-7.0) Basophils % 0.4 % (0.0-2.0) Nucleated Red 0.0 Blood Cells % /100WBC (0.0-0. 0) Immature 0.030 Granulocytes # 10^3/ul (0.0-0. 031) Neutrophils # 5.9 10^3/ul (1.6-7. 5) Lymphocytes # 1.0 10^3/ul (0.8-2. 9) Monocytes # 0.5 10^3/ul (0.3-0. 9) Eosinophils # 0.1 10^3/ul (0.0-0. 5) Basophils # 0.0 10^3/ul (0.0-0. 1) Nucleated Red 0.0 Blood Cells # 10^3/ul (0.0-0. 0) Sodium Level 140 mmol/L (135-144 ) Potassium 4.2 Level mmol/L (3.5-5.1 ) Chloride Level 102 mmol/L (97-110) Carbon Dioxide 26 Level mmol/L (21-31) Anion Gap 12 (5-13) Blood Urea 21 mg/dl (7-20) Nitrogen Creatinine 1.48 mg/dl (0.61-1.2 4) Est Glomerular 50 mL/min (>60) Filtrat Rate mL/min Glucose Level 160 mg/dl (70-220) Calcium Level 8.9 mg/dl (8.4-10.2 ) TEODORO RIDER 24, 2019 09:25
[2018-07-19] MEDS ORDERED: BISACODYL 10 MG SUPP PR ONE (09:30)
--- NOTE | 2018-07-19 12:08 | CONS ---
Consultation Date/Type/Reason Admit Date/Time Jul 03, 2018 at 22:10 Initial Consult Date SUBJECTIVE: Pt is awake, alert, afebrile. No acute distress. VS: stable. T: 98.6 LABS: Reviewed. WBC- 7.6 Micro: wound cx + HÉCTOR ANTBX: Rocephin PHYSICAL EXAMINATION: GENERAL: Well-nourished, well-developed 52-year-old man who is awake, in no distress. HEENT: Head atraumatic, normocephalic. NECK: Supple. CHEST: Rise symmetrical. Breath sounds clear. HEART: S1, S2. ABDOMEN: Soft, bowel tones present. EXTREMITIES: Left foot erythema, edema and pressure sores on his third, second toe, right foot with plantar necrotic skin breakdown. ASSESSMENT: 1. Cellulitis of left foot 2. DM 2 3.DM foot ulcers with OM and Hx S/P left fifth and fourth toes amputation. 4. HTN 5. Anemia of CD Plan: Pt is stable. Podiatry following. Local wound care and pain management. Ok to D/C on Po Cipro x 6weeks. Date/Time of Note DATE: 07/19/18 TIME: 12:06 Exam/Review of Systems Exam Vitals Vital Signs Date Temp Pulse Resp B/P (MAP) Pulse Ox O2 O2 Flow FiO2 Time Delivery Rate 07/19/18 98.6 72 17 141/85 95 08:19 (103) 07/18/18 Room Air 02:12 07/16/18 2.0 21:54 Intake and Output 07/18/18 07/18/18 07/19/18 1515:00 23:00 07:00 IntakeIntake Total 350 ml 720 ml OutputOutput Total 750 ml 1200 ml BalanceBalance 350 ml -30 ml -1200 ml Results Result Diagram: 07/19/18 0816 07/19/18 0816 Results 24hrs Laboratory Tests Test 07/18/18 12:27 07/18/18 17:05 07/18/18 20:12 07/19/18 08:15 Bedside Glucose 246 H 164 142 157 Test 07/19/18 08:16 White Blood Count 7.6 Red Blood Count 3.04 L Hemoglobin 9.4 L Hematocrit 27.2 L Mean Corpuscular 89.5 Volume Mean Corpuscular 30.9 Hemoglobin Mean Corpuscular 34.6 Hemoglobin Concent Red Cell 12.0 Distribution Width Platelet Count 245 Mean Platelet Volume 9.5 Immature 0.400 Granulocytes % Neutrophils % 78.0 H Lymphocytes % 13.4 L Monocytes % 6.1 Eosinophils % 1.7 Basophils % 0.4 Nucleated Red Blood 0.0 Cells % Immature 0.030 Granulocytes # Neutrophils # 5.9 Lymphocytes # 1.0 Monocytes # 0.5 Eosinophils # 0.1 Basophils # 0.0 Nucleated Red Blood 0.0 Cells # Sodium Level 140 Potassium Level 4.2 Chloride Level 102 Carbon Dioxide Level 26 Anion Gap 12 Blood Urea Nitrogen 21 H Creatinine 1.48 H Est Glomerular 50 L Filtrat Rate mL/min Glucose Level 160 Calcium Level 8.9 Medications Medication Current Medications Acetaminophen/ Hydrocodone Bitart ([place] (5/325)) 1 tab Q4H PRN PO MODERATE PAIN LEVEL 4-6; Start 07/04/18 at 01:30 Pantoprazole (Protonix Tab) 40 mg DAILY@06 PO Last administered on 07/19/18at 05:57; Admin Dose 40 MG; Start 07/04/18 at 06:00 Acetaminophen (Tylenol Tab) 650 mg Q6H PRN PO MILD PAIN(1-3)OR ELEVATED TEMP Last administered on 07/17/18at 08:46; Admin Dose 650 MG; Start 07/04/18 at 01:30 Clonidine (Catapres) 0.1 mg Q6H PRN PO ELEVATED BLOOD PRESSURE Last administered on 07/04/18at 01:47; Admin Dose 0.1 MG; Start 07/04/18 at 01:30 Miscellaneous Information 1 ea NOTE XX ; Start 07/04/18 at 02:00 Glucose (Glutose) 15 gm Q15M PRN PO DECREASED GLUCOSE; Start 07/04/18 at 02:00 Glucose (Glutose) 22.5 gm Q15M PRN PO DECREASED GLUCOSE; Start 07/04/18 at 02:00 Dextrose (D50w Syringe) 25 ml Q15M PRN IV DECREASED GLUCOSE; Start 07/04/18 at 02:00 Dextrose (D50w Syringe) 50 ml Q15M PRN IV DECREASED GLUCOSE; Start 07/04/18 at 02:00 Glucagon (Glucagen) 1 mg Q15M PRN IM DECREASED GLUCOSE; Start 07/04/18 at 02:00 Glucose (Glutose) 15 gm Q15M PRN BUCCAL DECREASED GLUCOSE; Start 07/04/18 at 02:00 Bisacodyl (Dulcolax) 10 mg BID PRN PO CONSTIPATION; Start 07/04/18 at 01:30 Miscellaneous Information (Pending Santyl Order For Wound Care) This patient mora... PRN PRN XX WOUND CARE; Start 07/04/18 at 02:00 Pentoxifylline (Trental) 400 mg TID PO Last administered on 07/19/18 08:18; Admin Dose 400 MG; Start 07/04/18 at 21:00 Linagliptin (Tradjenta) 5 mg DAILY PO Last administered on 07/19/18 08:18; Admin Dose 5 MG; Start 07/04/18 at 14:00 Amlodipine Besylate (Norvasc) 5 mg BID PO Last administered on 07/19/18 08:18; Admin Dose 5 MG; Start 07/07/18 at 15:00 Enoxaparin Sodium (Lovenox) 30 mg DAILY SC Last administered on 07/19/18 08:22; Admin Dose 30 MG; Start 07/09/18 at 09:00 Ferrous Sulfate (Ferrous Sulfate (Ec)) 325 mg DAILY PO Last administered on 07/19/18 08:18; Admin Dose 325 MG; Start 07/11/18 at 10:00 Insulin Aspart (Novolog Insulin Pen) NOVOLOG *MODERATE* ALGORITHM AC MEALS AND BEDTIME SC Last administered on 07/19/18 08:24; Admin Dose 2 UNIT; Start 07/15/18 at 11:20 Zinc Sulfate (Zinc Sulfate) 220 mg DAILY PO Last administered on 07/19/18 08:18; Admin Dose 220 MG; Start 07/18/18 at 09:00 Clonidine (Catapres) 0.2 mg TID PO Last administered on 07/19/18 08:19; Admin Dose 0.2 MG; Start 07/17/18 at 13:00 Collagenase (Santyl) 1 applic DAILY TOP Last administered on 07/19/18 08:18; Admin Dose 1 APPLIC; Start 07/17/18 at 17:30 Mineral Oil (Mineral Oil) 30 ml DAILY PO Last administered on 07/19/18 08:17; Admin Dose 30 ML; Start 07/18/18 at 14:30 Ciprofloxacin (Cipro) 500 mg BID@06,18 PO Last administered on 07/19/18at 05:57; Admin Dose 500 MG; Start 07/18/18 at 18:00 MATIAS HASTINGS Jul 19, 2018 12:08
[2018-07-19 14:28] VITALS: BP 136/79; PULSE 65; RESP 16
[2018-07-19 20:17] VITALS: BP 135/80; PULSE 68; RESP 18
[2018-07-20 02:11] VITALS: BP 142/81; PULSE 69; RESP 18
[2018-07-20] MEDS: PANTOPRAZOLE (EC) 40 MG TAB PO SCH (06:28)
[2018-07-20] MEDS: CIPROFLOXACIN 500 MG TAB PO SCH ×2 (06:28→17:00)
[2018-07-20 08:01] VITALS: BP 129/76; PULSE 67; RESP 18
[2018-07-20] MEDS: INSULIN ASPART [NOVOLOG] 3 ML PEN SC SCH ×4 (08:19→20:46)
[2018-07-20] MEDS: FERROUS SULFATE (EC) 325 MG TAB PO SCH (08:20)
[2018-07-20] MEDS: COLLAGENASE 5 GM (UD JAR) TOP SCH (08:21)
[2018-07-20] MEDS: LINAGLIPTIN 5 MG TABLET PO SCH (08:21)
[2018-07-20] MEDS: AMLODIPINE 5 MG TAB PO SCH ×2 (08:21→20:43)
[2018-07-20] MEDS: ZINC SULFATE 220 MG CAP PO SCH (08:21)
[2018-07-20] MEDS: ENOXAPARIN 30 MG/0.3 ML SYG SC SCH (08:23)
[2018-07-20] MEDS: PENTOXIFYLLINE (SR) 400 MG TAB PO SCH ×3 (08:23→20:43)
[2018-07-20] MEDS: MINERAL OIL 30ML CUP PO SCH (08:24)
--- NOTE | 2018-07-20 13:32 | PN ---
Date/Time of Note Date/Time of Note DATE: 07/20/18 TIME: 13:28 Assessment/Plan VTE Prophylaxis Risk score (from Ns)>0 risk: 5 SCD applied (from Nsg): Yes Pharmacological prophylaxis: NA/contraindicated Pharm contraindication: low risk/ambulating Lines/Catheters IV Catheter Type (from Nrsg): Saline Lock Urinary Cath still in place: No Assessment/Plan Hospital Course Hospital Course 1. Left foot cellulitis. Discoloration of 2 and 3 toes. S/p amputation of the left fourth digit and transmetatarsal amputation of the fifth digit. 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 On Xray soft tissue swelling. Vascular calcification consistent with atherosclerotic disease. Also noted to have right sole of the foot blackish discolorationAmputation of the left third toe . Excisional debridement right foot necrotic open wound measuring 5 x 3 cm to the level of subcutaneous tissue 2. Anemia 3. Overweight 4. DANIELLE, creatinine 1.97. Pt creatinine was 1.73 in [facility] February 2018 and then return to normal. Cr had been improving, and Cr is 1.5 5. DM type II with diabetic neuropathy 6. Hypertension 7. Right foot sole wound 8. Peripheral vascular disease. On Duplex US 09/2017 Monophasic wave forms in bilateral posterior tibial arteries and dorsalis pedis arteries consistent with a significant bilateral infrapopliteal stenosis. 9 Anemia Plan - MRI +Findings consistent with osteomyelitis at the fifth metatarsal amputation site. Findings consistent with osteomyelitis of the third toe distal, and probably middle and proximal phalanges. Findings likely representing osteomyelitis of the second toe distal phalanx. -spoke TO Dr Betancur abut rt leg wound per him ischemic> he will contact Dr Chou -Hold Lasix in order to prevent contrast nephropathy - cw cipro - Monitor fevers -Continue with pentoxifylline -cwWith clonidine and Norvasc for blood pressure -cw with IV iron - hold nephrotoxic agents strict I's and O' - GI prophylaxsis Result Diagram: 07/19/18 0816 07/19/18 0816 Results 24hrs Laboratory Tests Test 07/19/18 17:05 07/19/18 20:53 07/20/18 02:12 07/20/18 08:17 Bedside Glucose 229 H 188 187 193 Test 07/20/18 12:29 Bedside Glucose 282 H Subjective 24 Hr Interval Summary Free Text/Dictation Pt was seen and examined rt foot examined Exam/Review of Systems Exam Vitals Vital Signs Date Temp Pulse Resp B/P (MAP) Pulse Ox O2 O2 Flow FiO2 Time Delivery Rate 07/20/18 98.1 67 18 129/76 98 08:01 (93) 07/18/18 Room Air 02:12 07/16/18 2.0 21:54 Intake and Output 07/19/18 07/19/18 07/20/18 1515:00 23:00 07:00 IntakeIntake Total 240 ml BalanceBalance 240 ml Exam Constitutional: alert, oriented Psych: no complaints Neck: supple Respiratory: clear to auscultation Cardiovascular: regular rate and rhythm Gastrointestinal: soft Musculoskeletal: rt foot gangrenous area bottom foot 2rd toe ischemic Results Results 24hrs Laboratory Tests Test 07/19/18 17:05 07/19/18 20:53 07/20/18 02:12 07/20/18 08:17 Bedside Glucose 229 H 188 187 193 Test 07/20/18 12:29 Bedside Glucose 282 H Medications Medication Current Medications Acetaminophen/ Hydrocodone Bitart ([place] (5/325)) 1 tab Q4H PRN PO MODERATE PAIN LEVEL 4-6; Start 07/04/18 at 01:30 Pantoprazole (Protonix Tab) 40 mg DAILY@06 PO Last administered on 07/20/18at 06:28; Admin Dose 40 MG; Start 07/04/18 at 06:00 Acetaminophen (Tylenol Tab) 650 mg Q6H PRN PO MILD PAIN(1-3)OR ELEVATED TEMP Last administered on 07/17/18at 08:46; Admin Dose 650 MG; Start 07/04/18 at 01:30 Clonidine (Catapres) 0.1 mg Q6H PRN PO ELEVATED BLOOD PRESSURE Last administered on 07/04/18at 01:47; Admin Dose 0.1 MG; Start 07/04/18 at 01:30 Miscellaneous Information 1 ea NOTE XX ; Start 07/04/18 at 02:00 Glucose (Glutose) 15 gm Q15M PRN PO DECREASED GLUCOSE; Start 07/04/18 at 02:00 Glucose (Glutose) 22.5 gm Q15M PRN PO DECREASED GLUCOSE; Start 07/04/18 at 02:00 Dextrose (D50w Syringe) 25 ml Q15M PRN IV DECREASED GLUCOSE; Start 07/04/18 at 02:00 Dextrose (D50w Syringe) 50 ml Q15M PRN IV DECREASED GLUCOSE; Start 07/04/18 at 02:00 Glucagon (Glucagen) 1 mg Q15M PRN IM DECREASED GLUCOSE; Start 07/04/18 at 02:00 Glucose (Glutose) 15 gm Q15M PRN BUCCAL DECREASED GLUCOSE; Start 07/04/18 at 02:00 Bisacodyl (Dulcolax) 10 mg BID PRN PO CONSTIPATION; Start 07/04/18 at 01:30 Miscellaneous Information (Pending Santyl Order For Wound Care) This patient mora... PRN PRN XX WOUND CARE; Start 07/04/18 at 02:00 Pentoxifylline (Trental) 400 mg TID PO Last administered on 07/20/18 12:30; Admin Dose 400 MG; Start 07/04/18 at 21:00 Linagliptin (Tradjenta) 5 mg DAILY PO Last administered on 07/20/18 08:21; Admin Dose 5 MG; Start 07/04/18 at 14:00 Amlodipine Besylate (Norvasc) 5 mg BID PO Last administered on 07/20/18 08:21; Admin Dose 5 MG; Start 07/07/18 at 15:00 Enoxaparin Sodium (Lovenox) 30 mg DAILY SC Last administered on 07/20/18 08:23; Admin Dose 30 MG; Start 07/09/18 at 09:00 Ferrous Sulfate (Ferrous Sulfate (Ec)) 325 mg DAILY PO Last administered on 07/20/18 08:20; Admin Dose 325 MG; Start 07/11/18 at 10:00 Insulin Aspart (Novolog Insulin Pen) NOVOLOG *MODERATE* ALGORITHM AC MEALS AND BEDTIME SC Last administered on 07/20/18 12:38; Admin Dose 8 UNIT; Start 07/15/18 at 11:20 Zinc Sulfate (Zinc Sulfate) 220 mg DAILY PO Last administered on 07/20/18 08:21; Admin Dose 220 MG; Start 07/18/18 at 09:00 Clonidine (Catapres) 0.2 mg TID PO Last administered on 07/20/18 12:30; Admin Dose 0.2 MG; Start 07/17/18 at 13:00 Collagenase (Santyl) 1 applic DAILY TOP Last administered on 07/20/18at 08:21; Admin Dose 1 APPLIC; Start 07/17/18 at 17:30 Mineral Oil (Mineral Oil) 30 ml DAILY PO Last administered on 07/20/18at 08:24; Admin Dose 30 ML; Start 07/18/18 at 14:30 Ciprofloxacin (Cipro) 500 mg BID@06,18 PO Last administered on 07/20/18 06:28; Admin Dose 500 MG; Start 07/18/18 at 18:00 GINA SUTTON MD Jul 20, 2018 13:32
[2018-07-20 14:00] VITALS: BP 125/76; PULSE 63; RESP 18
--- NOTE | 2018-07-20 14:01 | CONS ---
Assessment/Plan Assessment/Plan Hospital Course (Demo Recall) No acute events, looks comfortable Antimicrobials: Cipro Micro: wound cx + HÉCTOR PHYSICAL EXAMINATION: GENERAL: Well-nourished, well-developed 52-year-old man who is awake, in no distress. HEENT: Head atraumatic, normocephalic. NECK: Supple. CHEST: Rise symmetrical. Breath sounds clear. HEART: S1, S2. ABDOMEN: Soft, bowel tones present. EXTREMITIES: Left foot erythema, edema and pressure sores on his third, second toe, right foot with plantar necrotic skin breakdown. Assessment: 1. Left foot HÉCTOR cellulitis/osteomyelitis ==>s/p amputation of the left third toe and debridement 07/16/18 2. Diabetes 3. Diabetic neuropathy 4. Hypertension 5. Peripheral vascular disease, status post angiogram Plan: Patient remains stable, pending dc, last dose abx August 28 Consultation Date/Type/Reason Admit Date/Time Jul 03, 2018 at 22:10 Initial Consult Date 07/04/18 Type of Consult id Date/Time of Note DATE: 07/20/18 TIME: 14:00 Exam/Review of Systems Exam Vitals Vital Signs Date Temp Pulse Resp B/P (MAP) Pulse Ox O2 O2 Flow FiO2 Time Delivery Rate 07/20/18 98.1 67 18 129/76 98 08:01 (93) 07/18/18 Room Air 02:12 07/16/18 2.0 21:54 Intake and Output 07/19/18 07/19/18 07/20/18 1414:59 22:59 06:59 IntakeIntake Total 240 ml BalanceBalance 240 ml Results Result Diagram: 07/19/18 0816 07/19/18 0816 Results 24hrs Laboratory Tests Test 07/19/18 17:05 07/19/18 20:53 07/20/18 02:12 07/20/18 08:17 Bedside Glucose 229 H 188 187 193 Test 07/20/18 12:29 Bedside Glucose 282 H Medications Medication Current Medications Acetaminophen/ Hydrocodone Bitart ([place] (5/325)) 1 tab Q4H PRN PO MODERATE PAIN LEVEL 4-6; Start 07/04/18 at 01:30 Pantoprazole (Protonix Tab) 40 mg DAILY@06 PO Last administered on 07/20/18at 06:28; Admin Dose 40 MG; Start 07/04/18 at 06:00 Acetaminophen (Tylenol Tab) 650 mg Q6H PRN PO MILD PAIN(1-3)OR ELEVATED TEMP Last administered on 07/17/18at 08:46; Admin Dose 650 MG; Start 07/04/18 at 01:30 Clonidine (Catapres) 0.1 mg Q6H PRN PO ELEVATED BLOOD PRESSURE Last administered on 07/04/18at 01:47; Admin Dose 0.1 MG; Start 07/04/18 at 01:30 Miscellaneous Information 1 ea NOTE XX ; Start 07/04/18 at 02:00 Glucose (Glutose) 15 gm Q15M PRN PO DECREASED GLUCOSE; Start 07/04/18 at 02:00 Glucose (Glutose) 22.5 gm Q15M PRN PO DECREASED GLUCOSE; Start 07/04/18 at 02:00 Dextrose (D50w Syringe) 25 ml Q15M PRN IV DECREASED GLUCOSE; Start 07/04/18 at 02:00 Dextrose (D50w Syringe) 50 ml Q15M PRN IV DECREASED GLUCOSE; Start 07/04/18 at 02:00 Glucagon (Glucagen) 1 mg Q15M PRN IM DECREASED GLUCOSE; Start 07/04/18 at 02:00 Glucose (Glutose) 15 gm Q15M PRN BUCCAL DECREASED GLUCOSE; Start 07/04/18 at 02:00 Bisacodyl (Dulcolax) 10 mg BID PRN PO CONSTIPATION; Start 07/04/18 at 01:30 Miscellaneous Information (Pending [facility] Order For Wound Care) This patient mora... PRN PRN XX WOUND CARE; Start 07/04/18 at 02:00 Pentoxifylline (Trental) 400 mg TID PO Last administered on 07/20/18at 12:30; Admin Dose 400 MG; Start 07/04/18 at 21:00 Linagliptin (Tradjenta) 5 mg DAILY PO Last administered on 07/20/18 08:21; Admin Dose 5 MG; Start 07/04/18 at 14:00 Amlodipine Besylate (Norvasc) 5 mg BID PO Last administered on 07/20/18 08:21; Admin Dose 5 MG; Start 07/07/18 at 15:00 Enoxaparin Sodium (Lovenox) 30 mg DAILY SC Last administered on 07/20/18 08:23; Admin Dose 30 MG; Start 07/09/18 at 09:00 Ferrous Sulfate (Ferrous Sulfate (Ec)) 325 mg DAILY PO Last administered on 07/20/18 08:20; Admin Dose 325 MG; Start 07/11/18 at 10:00 Insulin Aspart (Novolog Insulin Pen) NOVOLOG *MODERATE* ALGORITHM AC MEALS AND BEDTIME SC Last administered on 07/20/18 12:38; Admin Dose 8 UNIT; Start 07/15/18 at 11:20 Zinc Sulfate (Zinc Sulfate) 220 mg DAILY PO Last administered on 07/20/18 08:21; Admin Dose 220 MG; Start 07/18/18 at 09:00 Clonidine (Catapres) 0.2 mg TID PO Last administered on 07/20/18 12:30; Admin Dose 0.2 MG; Start 07/17/18 at 13:00 Collagenase (Santyl) 1 applic DAILY TOP Last administered on 07/20/18 08:21; Admin Dose 1 APPLIC; Start 07/17/18 at 17:30 Mineral Oil (Mineral Oil) 30 ml DAILY PO Last administered on 07/20/18 08:24; Admin Dose 30 ML; Start 07/18/18 at 14:30 Ciprofloxacin (Cipro) 500 mg BID@,18 PO Last administered on 07/20/18 06:28; Admin Dose 500 MG; Start 07/18/18 at 18:00 RXOANNA SOMERS NP Jul 20, 2018 14:01
[2018-07-20 20:03] VITALS: BP 139/79; PULSE 66; RESP 16
[2018-07-21 02:24] VITALS: BP 147/83; PULSE 70; RESP 18
[2018-07-21] MEDS: PANTOPRAZOLE (EC) 40 MG TAB PO SCH (06:16)
[2018-07-21] MEDS: CIPROFLOXACIN 500 MG TAB PO SCH ×2 (06:16→17:49)
[2018-07-21 07:00] VITALS: BP 143/76; PULSE 70; RESP 16
[2018-07-21] MEDS: PENTOXIFYLLINE (SR) 400 MG TAB PO SCH ×3 (08:18→20:50)
[2018-07-21] MEDS: FERROUS SULFATE (EC) 325 MG TAB PO SCH (08:19)
[2018-07-21] MEDS: AMLODIPINE 5 MG TAB PO SCH ×2 (08:19→20:51)
[2018-07-21] MEDS: ZINC SULFATE 220 MG CAP PO SCH (08:19)
[2018-07-21] MEDS: ENOXAPARIN 30 MG/0.3 ML SYG SC SCH (08:24)
[2018-07-21] MEDS: LINAGLIPTIN 5 MG TABLET PO SCH (08:25)
[2018-07-21] MEDS: INSULIN ASPART [NOVOLOG] 3 ML PEN SC SCH ×5 (08:25→20:47)
[2018-07-21] MEDS: COLLAGENASE 5 GM (UD JAR) TOP SCH (08:25)
[2018-07-21] MEDS: MINERAL OIL 30ML CUP PO SCH (09:36)
[2018-07-21 12:45] VITALS: BP 142/85; PULSE 67; RESP 20
--- NOTE | 2018-07-21 13:16 | CONS ---
Assessment/Plan Assessment/Plan Hospital Course (Demo Recall) No acute events, looks comfortable Antimicrobials: Cipro Micro: wound cx + HÉCTOR PHYSICAL EXAMINATION: GENERAL: Well-nourished, well-developed 52-year-old man who is awake, in no distress. HEENT: Head atraumatic, normocephalic. NECK: Supple. CHEST: Rise symmetrical. Breath sounds clear. HEART: S1, S2. ABDOMEN: Soft, bowel tones present. EXTREMITIES: Left foot erythema, edema and pressure sores on his third, second toe, right foot with plantar necrotic skin breakdown. Assessment: 1. Left foot HÉCTOR cellulitis/osteomyelitis ==>s/p amputation of the left third toe and debridement 07/16/18 2. Diabetes 3. Diabetic neuropathy 4. Hypertension 5. Peripheral vascular disease, status post angiogram Plan: Patient remains stable, pending dc arrangements, last dose abx August 28 Consultation Date/Type/Reason Admit Date/Time Jul 03, 2018 at 22:10 Initial Consult Date 07/04/18 Type of Consult id Date/Time of Note DATE: 07/21/18 TIME: 13:16 Exam/Review of Systems Exam Vitals Vital Signs Date Temp Pulse Resp B/P (MAP) Pulse Ox O2 O2 Flow FiO2 Time Delivery Rate 07/21/18 99.6 67 20 142/85 96 Room Air 12:45 (104) Intake and Output 07/20/18 07/20/18 07/21/18 1515:00 23:00 07:00 IntakeIntake Total 400 ml 360 ml OutputOutput Total 200 ml 200 ml 1000 ml BalanceBalance 200 ml 160 ml -1000 ml Results Result Diagram: 07/19/18 0816 07/21/18 0602 Results 24hrs Laboratory Tests Test 07/20/18 17:02 07/20/18 20:41 07/21/18 02:12 07/21/18 06:02 Bedside Glucose 195 191 212 Sodium Level 138 Potassium Level 4.0 Chloride Level 101 Carbon Dioxide Level 27 Anion Gap 10 Blood Urea Nitrogen 25 H Creatinine 1.55 H Est Glomerular 47 L Filtrat Rate mL/min Glucose Level 203 Calcium Level 8.8 Test 07/21/18 08:23 07/21/18 12:46 Bedside Glucose 206 248 H Medications Medication Current Medications Acetaminophen/ Hydrocodone Bitart ([place] (5/325)) 1 tab Q4H PRN PO MODERATE PAIN LEVEL 4-6; Start 07/04/18 at 01:30 Pantoprazole (Protonix Tab) 40 mg DAILY@06 PO Last administered on 07/21/18at 06 :16; Admin Dose 40 MG; Start 07/04/18 at 06:00 Acetaminophen (Tylenol Tab) 650 mg Q6H PRN PO MILD PAIN(1-3)OR ELEVATED TEMP Last administered on 07/17/18at 08:46; Admin Dose 650 MG; Start 07/04/18 at 01:30 Clonidine (Catapres) 0.1 mg Q6H PRN PO ELEVATED BLOOD PRESSURE Last administered on 07/04/18at 01:47; Admin Dose 0.1 MG; Start 07/04/18 at 01:30 Miscellaneous Information 1 ea NOTE XX ; Start 07/04/18 at 02:00 Glucose (Glutose) 15 gm Q15M PRN PO DECREASED GLUCOSE; Start 07/04/18 at 02:00 Glucose (Glutose) 22.5 gm Q15M PRN PO DECREASED GLUCOSE; Start 07/04/18 at 02:00 Dextrose (D50w Syringe) 25 ml Q15M PRN IV DECREASED GLUCOSE; Start 07/04/18 at 02:00 Dextrose (D50w Syringe) 50 ml Q15M PRN IV DECREASED GLUCOSE; Start 07/04/18 at 02:00 Glucagon (Glucagen) 1 mg Q15M PRN IM DECREASED GLUCOSE; Start 07/04/18 at 02:00 Glucose (Glutose) 15 gm Q15M PRN BUCCAL DECREASED GLUCOSE; Start 07/04/18 at 02 :00 Bisacodyl (Dulcolax) 10 mg BID PRN PO CONSTIPATION; Start 07/04/18 at 01:30 Miscellaneous Information (Pending Santyl Order For Wound Care) This patient mora... PRN PRN XX WOUND CARE; Start 07/04/18 at 02:00 Pentoxifylline (Trental) 400 mg TID PO Last administered on 07/21/18at 12:50; Admin Dose 400 MG; Start 07/04/18 at 21:00 Linagliptin (Tradjenta) 5 mg DAILY PO Last administered on 07/21/18at 08:25; Admin Dose 5 MG; Start 07/04/18 at 14:00 Amlodipine Besylate (Norvasc) 5 mg BID PO Last administered on 07/21/18 08:19; Admin Dose 5 MG; Start 07/07/18 at 15:00 Enoxaparin Sodium (Lovenox) 30 mg DAILY SC Last administered on 07/21/18 08:24; Admin Dose 30 MG; Start 07/09/18 at 09:00 Ferrous Sulfate (Ferrous Sulfate (Ec)) 325 mg DAILY PO Last administered on 07/21/18 08:19; Admin Dose 325 MG; Start 07/11/18 at 10:00 Insulin Aspart (Novolog Insulin Pen) NOVOLOG *MODERATE* ALGORITHM AC MEALS AND BEDTIME SC Last administered on 07/21/18 12:52; Admin Dose 6 UNIT; Start 07/15/18 at 11:20 Zinc Sulfate (Zinc Sulfate) 220 mg DAILY PO Last administered on 07/21/18 08:19; Admin Dose 220 MG; Start 07/18/18 at 09:00 Clonidine (Catapres) 0.2 mg TID PO Last administered on 07/21/18 12:50; Admin Dose 0.2 MG; Start 07/17/18 at 13:00 Collagenase (Santyl) 1 applic DAILY TOP Last administered on 07/21/18 08:25; Admin Dose 1 APPLIC; Start 07/17/18 at 17:30 Mineral Oil (Mineral Oil) 30 ml DAILY PO Last administered on 07/21/18 09:36; Admin Dose 30 ML; Start 07/18/18 at 14:30 Ciprofloxacin (Cipro) 500 mg BID@,18 PO Last administered on 07/21/18 06:16; Admin Dose 500 MG; Start 07/18/18 at 18:00 ROXANNA SOMERS NP Jul 21, 2018 13:16
[2018-07-21 14:21] VITALS: BP 122/72; PULSE 63; RESP 16
--- NOTE | 2018-07-21 15:45 | PN ---
Date/Time of Note Date/Time of Note DATE: 07/21/18 TIME: 15:41 Assessment/Plan VTE Prophylaxis Risk score (from Nsg)>0 risk: 3 SCD applied (from Nsg): No SCD contraindicated: low risk/ambulating Pharmacological prophylaxis: NA/contraindicated Pharm contraindication: low risk/ambulating Lines/Catheters IV [facility]from [facility] [place] Urinary Cath still in place: No Assessment/Plan Hospital Course Hospital Course 1. Left foot cellulitis. Discoloration of 2 and 3 toes. S/p amputation of the left fourth digit and transmetatarsal amputation of the fifth digit. 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 On Xray soft tissue swelling. Vascular calcification consistent with atherosclerotic disease. Also noted to have right sole of the foot blackish discolorationAmputation of the left third toe . Excisional debridement right foot necrotic open wound measuring 5 x 3 cm to the level of subcutaneous tissue 2. Anemia 3. Overweight 4. DANIELLE, creatinine 1.97. Pt creatinine was 1.73 in [facility] February 2018 and then return to normal. Cr had been improving, and Cr is 1.5 5. DM type II with diabetic neuropathy 6. Hypertension 7. Right foot sole wound 8. Peripheral vascular disease. On Duplex US 09/2017 Monophasic wave forms in bilateral posterior tibial arteries and dorsalis pedis arteries consistent with a significant bilateral infrapopliteal stenosis. 9 Anemia Plan - MRI +Findings consistent with osteomyelitis at the fifth metatarsal amputation site. Findings consistent with osteomyelitis of the third toe distal, and probably middle and proximal phalanges. Findings likely representing osteomyelitis of the second toe distal phalanx. -spoke TO Dr Betancur abut rt leg wound per him ischemic> he will contact Dr Perez> per Dr Perez will go angiogram on > Spoke to patient> he agreed to proceed, expplained him risks of worsening kidney disease - add gentle iv fluids - monitor low grade fevers -Hold Lasix in order to prevent contrast nephropathy - cw cipro - add lantus and mealtime insulin - Monitor fevers -Continue with pentoxifylline -cwWith clonidine and Norvasc for blood pressure -cw with IV iron - hold nephrotoxic agents strict I's and O' - GI prophylaxsis Result Diagram: 07/19/18 0816 07/21/18 0602 Results 24hrs Laboratory Tests Test 07/20/18 17:02 07/20/18 20:41 07/21/18 02:12 07/21/18 06:02 Bedside Glucose 195 191 212 Sodium Level 138 Potassium Level 4.0 Chloride Level 101 Carbon Dioxide Level 27 Anion Gap 10 Blood Urea Nitrogen 25 H Creatinine 1.55 H Est Glomerular 47 L Filtrat Rate mL/min Glucose Level 203 Calcium Level 8.8 Test 07/21/18 08:23 07/21/18 12:46 Bedside Glucose 206 248 H Subjective 24 Hr Interval Summary Free Text/Dictation Discussed with patient abut possibility of going angiogram again per Dr perez due to possibility of PVD on rt as per Dr Betancur recs> pt agreed Exam/Review of Systems Exam Vitals Vital Signs Date Temp Pulse Resp B/P (MAP) Pulse Ox O2 O2 Flow FiO2 Time Delivery Rate 07/21/18 98.3 63 16 122/72 99 Room Air 14:21 (89) Intake and Output 07/20/18 07/20/18 07/21/18 1515:00 23:00 07:00 IntakeIntake Total 400 ml 360 ml OutputOutput Total 200 ml 200 ml 1000 ml BalanceBalance 200 ml 160 ml -1000 ml Exam Constitutional: alert, oriented Psych: no complaints Neck: supple Respiratory: clear to auscultation Cardiovascular: regular rate and rhythm Gastrointestinal: soft Musculoskeletal: rt foot gangrenous area bottom foot 2rd toe ischemic Results Results 24hrs Laboratory Tests Test 07/20/18 17:02 07/20/18 20:41 07/21/18 02:12 07/21/18 06:02 Bedside Glucose 195 191 212 Sodium Level 138 Potassium Level 4.0 Chloride Level 101 Carbon Dioxide Level 27 Anion Gap 10 Blood Urea Nitrogen 25 H Creatinine 1.55 H Est Glomerular 47 L Filtrat Rate mL/min Glucose Level 203 Calcium Level 8.8 Test 07/21/18 08:23 07/21/18 12:46 Bedside Glucose 206 248 H Medications Medication Current Medications Acetaminophen/ Hydrocodone Bitart ([place] (5/325)) 1 tab Q4H PRN PO MODERATE PAIN LEVEL 4-6; Start 07/04/18 at 01:30 Pantoprazole (Protonix Tab) 40 mg DAILY@06 PO Last administered on 07/21/18at 06:16; Admin Dose 40 MG; Start 07/04/18 at 06:00 Acetaminophen (Tylenol Tab) 650 mg Q6H PRN PO MILD PAIN(1-3)OR ELEVATED TEMP Last administered on 07/17/18at 08:46; Admin Dose 650 MG; Start 07/04/18 at 01:30 Clonidine (Catapres) 0.1 mg Q6H PRN PO ELEVATED BLOOD PRESSURE Last administered on 07/04/18at 01:47; Admin Dose 0.1 MG; Start 07/04/18 at 01:30 Miscellaneous Information 1 ea NOTE XX ; Start 07/04/18 at 02:00 Glucose (Glutose) 15 gm Q15M PRN PO DECREASED GLUCOSE; Start 07/04/18 at 02:00 Glucose (Glutose) 22.5 gm Q15M PRN PO DECREASED GLUCOSE; Start 07/04/18 at 02:00 Dextrose (D50w Syringe) 25 ml Q15M PRN IV DECREASED GLUCOSE; Start 07/04/18 at 02:00 Dextrose (D50w Syringe) 50 ml Q15M PRN IV DECREASED GLUCOSE; Start 07/04/18 at 02:00 Glucagon (Glucagen) 1 mg Q15M PRN IM DECREASED GLUCOSE; Start 07/04/18 at 02:00 Glucose (Glutose) 15 gm Q15M PRN BUCCAL DECREASED GLUCOSE; Start 07/04/18 at 02:00 Bisacodyl (Dulcolax) 10 mg BID PRN PO CONSTIPATION; Start 07/04/18 at 01:30 Miscellaneous Information (Pending Santyl Order For Wound Care) This patient mora... PRN PRN XX WOUND CARE; Start 07/04/18 at 02:00 Pentoxifylline (Trental) 400 mg TID PO Last administered on 07/21/18at 12:50; Admin Dose 400 MG; Start 07/04/18 at 21:00 Linagliptin (Tradjenta) 5 mg DAILY PO Last administered on 07/21/18at 08:25; Admin Dose 5 MG; Start 07/04/18 at 14:00 Amlodipine Besylate (Norvasc) 5 mg BID PO Last administered on 07/21/18at 08:19; Admin Dose 5 MG; Start 07/07/18 at 15:00 Enoxaparin Sodium (Lovenox) 30 mg DAILY SC Last administered on 07/21/18at 08:24; Admin Dose 30 MG; Start 07/09/18 at 09:00 Ferrous Sulfate (Ferrous Sulfate (Ec)) 325 mg DAILY PO Last administered on 08:19; Admin Dose 325 MG; Start 07/11/18 at 10:00 Insulin Aspart (Novolog Insulin Pen) NOVOLOG *MODERATE* ALGORITHM AC MEALS AND BEDTIME SC Last administered on 07/21/18 12:52; Admin Dose 6 UNIT; Start 07/15/18 at 11:20 Zinc Sulfate (Zinc Sulfate) 220 mg DAILY PO Last administered on 07/21/18 08:19; Admin Dose 220 MG; Start 07/18/18 at 09:00 Clonidine (Catapres) 0.2 mg TID PO Last administered on 07/21/18at 12:50; Admin Dose 0.2 MG; Start 07/17/18 at 13:00 Collagenase (Santyl) 1 applic DAILY TOP Last administered on 07/21/18 08:25; Admin Dose 1 APPLIC; Start 07/17/18 at 17:30 Mineral Oil (Mineral Oil) 30 ml DAILY PO Last administered on 07/21/18at 09:36; Admin Dose 30 ML; Start 07/18/18 at 14:30 Ciprofloxacin (Cipro) 500 mg BID@06,18 PO Last administered on 07/21/18 06:16; Admin Dose 500 MG; Start 07/18/18 at 18:00 Insulin Glargine (Lantus) 10 units DAILY@2000 SC ; Start 07/21/18 at 20:00; Status GINA HORTA MD Jul 21, 2018 15:45
[2018-07-21] MEDS: SOD CHLORIDE 0.9% 1,000 ML IV SCH (16:42)
[2018-07-21 19:46] VITALS: BP 120/74; PULSE 64; RESP 17
[2018-07-21] MEDS: INSULIN GLARGINE [LANTus] (100 UNITS/ML) SYG SC SCH (20:49)
[2018-07-22 01:48] VITALS: BP 146/82; PULSE 68; RESP 19
[2018-07-22] MEDS ORDERED: ACCU-CHEK XX SCH (02:00)
[2018-07-22] MEDS: PANTOPRAZOLE (EC) 40 MG TAB PO SCH (06:34)
[2018-07-22] MEDS: CIPROFLOXACIN 500 MG TAB PO SCH (06:34)
[2018-07-22 07:56] VITALS: BP 153/83; PULSE 66; RESP 18
[2018-07-22] MEDS: FERROUS SULFATE (EC) 325 MG TAB PO SCH (08:42)
[2018-07-22] MEDS: LINAGLIPTIN 5 MG TABLET PO SCH (08:43)
[2018-07-22] MEDS: ZINC SULFATE 220 MG CAP PO SCH (08:43)
[2018-07-22] MEDS: PENTOXIFYLLINE (SR) 400 MG TAB PO SCH ×3 (08:43→21:33)
[2018-07-22] MEDS: AMLODIPINE 5 MG TAB PO SCH ×2 (08:44→21:33)
[2018-07-22] MEDS: COLLAGENASE 5 GM (UD JAR) TOP SCH (08:44)
[2018-07-22] MEDS: MINERAL OIL 30ML CUP PO SCH (08:44)
[2018-07-22] MEDS: ENOXAPARIN 30 MG/0.3 ML SYG SC SCH (08:45)
[2018-07-22] MEDS: INSULIN ASPART [NOVOLOG] 3 ML PEN SC SCH ×7 (08:46→21:39)
[2018-07-22] MEDS ORDERED: CEFTRIAXONE 1 GM/50 ML (PMX) 50 ML IVPB SCH (10:00)
[2018-07-22] MEDS: SOD CHLORIDE 0.9% 1,000 ML IV SCH (11:36)
--- NOTE | 2018-07-22 12:14 | PN ---
Date/Time of Note Date/Time of Note DATE: 07/22/18 TIME: 12:12 Assessment/Plan VTE Prophylaxis Risk score (from Nsg)>0 risk: 4 SCD applied (from Ns): No SCD contraindicated: low risk/ambulating Pharmacological prophylaxis: NA/contraindicated Pharm contraindication: low risk/ambulating Lines/Catheters IV Catheter Type (from [facility]): [place] [facility] Urinary Cath still in place: No Assessment/Plan Hospital Course Hospital Course 1. Left foot cellulitis. Discoloration of 2 and 3 toes. S/p amputation of the left fourth digit and transmetatarsal amputation of the fifth digit. 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 On Xray soft tissue swelling. Vascular calcification consistent with atherosclerotic disease. Also noted to have right sole of the foot blackish discolorationAmputation of the left third toe . Excisional debridement right foot necrotic open wound measuring 5 x 3 cm to the level of subcutaneous tissue 2. Anemia 3. Overweight 4. DANIELLE, creatinine 1.97. Pt creatinine was 1.73 in [facility] February 2018 and then return to normal. Cr had been improving, and Cr is 1.5 5. DM type II with diabetic neuropathy 6. Hypertension 7. Right foot sole wound 8. Peripheral vascular disease. On Duplex US 09/2017 Monophasic wave forms in bilateral posterior tibial arteries and dorsalis pedis arteries consistent with a significant bilateral infrapopliteal stenosis. 9 Anemia Plan - MRI +Findings consistent with osteomyelitis at the fifth metatarsal amputation site. Findings consistent with osteomyelitis of the third toe distal, and probably middle and proximal phalanges. Findings likely representing osteomyelitis of the second toe distal phalanx. -spoke TO Dr Betancur abut rt leg wound per him ischemic> he will contact Dr Chou> per Dr Chou will go angiogram on > Spoke to patient> he agreed to proceed, expplained him risks of worsening kidney disease - add gentle iv fluids - mucomist - angiogram tmw -Hold Lasix in order to prevent contrast nephropathy - change cipro tp rocephin due to rising Cr - cw lantus and mealtime insulin - Monitor fevers -Continue with pentoxifylline -cwWith clonidine and Norvasc for blood pressure - hold nephrotoxic agents strict I's and O' - GI prophylaxsis Result Diagram: 07/22/18 0710 07/22/18 0710 Results 24hrs Laboratory Tests Test 07/21/18 12:46 07/21/18 17:45 07/21/18 20:46 07/22/18 07:10 Bedside Glucose 248 H 181 153 White Blood Count 8.4 Red Blood Count 3.08 L Hemoglobin 9.5 L Hematocrit 27.2 L Mean Corpuscular 88.3 Volume Mean Corpuscular 30.8 Hemoglobin Mean Corpuscular 34.9 Hemoglobin Concent Red Cell 11.9 Distribution Width Platelet Count 263 Mean Platelet Volume 9.9 Immature 0.400 Granulocytes % Neutrophils % 75.8 Lymphocytes % 14.5 L Monocytes % 7.5 Eosinophils % 1.4 Basophils % 0.4 Nucleated Red Blood 0.0 Cells % Immature 0.030 Granulocytes # Neutrophils # 6.4 Lymphocytes # 1.2 Monocytes # 0.6 Eosinophils # 0.1 Basophils # 0.0 Nucleated Red Blood 0.0 Cells # Sodium Level 139 Potassium Level 4.2 Chloride Level 105 Carbon Dioxide Level 26 Anion Gap 8 Blood Urea Nitrogen 22 H Creatinine 1.59 H Est Glomerular 46 L Filtrat Rate mL/min Glucose Level 149 # Calcium Level 8.9 Phosphorus Level 3.8 Magnesium Level 1.9 Test 07/22/18 08:23 Bedside Glucose 147 Subjective 24 Hr Interval Summary Free Text/Dictation had spoken to Dr Chou > angiogram tmw Exam/Review of Systems Exam Vitals Vital Signs Date Temp Pulse Resp B/P (MAP) Pulse Ox O2 O2 Flow FiO2 Time Delivery Rate 07/22/18 98.1 66 18 153/83 98 07:56 (106) 07/21/18 Room Air 14:21 Intake and Output 07/21/18 07/21/18 07/22/18 1515:00 23:00 07:00 IntakeIntake Total 700 ml BalanceBalance 700 ml Exam Exam Constitutional: alert, oriented Psych: no complaints Neck: supple Respiratory: clear to auscultation Cardiovascular: regular rate and rhythm Gastrointestinal: soft Musculoskeletal: rt foot gangrenous area bottom foot left foot s/p amputation of left 3rd toe Results Results 24hrs Laboratory Tests Test 07/21/18 12:46 07/21/18 17:45 07/21/18 20:46 07/22/18 07:10 Bedside Glucose 248 H 181 153 White Blood Count 8.4 Red Blood Count 3.08 L Hemoglobin 9.5 L Hematocrit 27.2 L Mean Corpuscular 88.3 Volume Mean Corpuscular 30.8 Hemoglobin Mean Corpuscular 34.9 Hemoglobin Concent Red Cell 11.9 Distribution Width Platelet Count 263 Mean Platelet Volume 9.9 Immature 0.400 Granulocytes % Neutrophils % 75.8 Lymphocytes % 14.5 L Monocytes % 7.5 Eosinophils % 1.4 Basophils % 0.4 Nucleated Red Blood 0.0 Cells % Immature 0.030 Granulocytes # Neutrophils # 6.4 Lymphocytes # 1.2 Monocytes # 0.6 Eosinophils # 0.1 Basophils # 0.0 Nucleated Red Blood 0.0 Cells # Sodium Level 139 Potassium Level 4.2 Chloride Level 105 Carbon Dioxide Level 26 Anion Gap 8 Blood Urea Nitrogen 22 H Creatinine 1.59 H Est Glomerular 46 L Filtrat Rate mL/min Glucose Level 149 # Calcium Level 8.9 Phosphorus Level 3.8 Magnesium Level 1.9 Test 07/22/18 08:23 Bedside Glucose 147 Medications Medication Current Medications Acetaminophen/ Hydrocodone Bitart ([place] (5/325)) 1 tab Q4H PRN PO MODERATE PAIN LEVEL 4-6; Start 07/04/18 at 01:30 Pantoprazole (Protonix Tab) 40 mg DAILY@06 PO Last administered on 07/22/18at 06:34; Admin Dose 40 MG; Start 07/04/18 at 06:00 Acetaminophen (Tylenol Tab) 650 mg Q6H PRN PO MILD PAIN(1-3)OR ELEVATED TEMP Last administered on 07/17/18at 08:46; Admin Dose 650 MG; Start 07/04/18 at 01:30 Clonidine (Catapres) 0.1 mg Q6H PRN PO ELEVATED BLOOD PRESSURE Last administered on 07/04/18at 01:47; Admin Dose 0.1 MG; Start 07/04/18 at 01:30 Miscellaneous Information 1 ea NOTE XX ; Start 07/04/18 at 02:00 Glucose (Glutose) 15 gm Q15M PRN PO DECREASED GLUCOSE; Start 07/04/18 at 02:00 Glucose (Glutose) 22.5 gm Q15M PRN PO DECREASED GLUCOSE; Start 07/04/18 at 02:00 Dextrose (D50w Syringe) 25 ml Q15M PRN IV DECREASED GLUCOSE; Start 07/04/18 at 02:00 Dextrose (D50w Syringe) 50 ml Q15M PRN IV DECREASED GLUCOSE; Start 07/04/18 at 02:00 Glucagon (Glucagen) 1 mg Q15M PRN IM DECREASED GLUCOSE; Start 07/04/18 at 02:00 Glucose (Glutose) 15 gm Q15M PRN BUCCAL DECREASED GLUCOSE; Start 07/04/18 at 02:00 Bisacodyl (Dulcolax) 10 mg BID PRN PO CONSTIPATION; Start 07/04/18 at 01:30 Miscellaneous Information (Pending Santyl Order For Wound Care) This patient mora... PRN PRN XX WOUND CARE; Start 07/04/18 at 02:00 Pentoxifylline (Trental) 400 mg TID PO Last administered on 07/22/18 08:43; Admin Dose 400 MG; Start 07/04/18 at 21:00 Linagliptin (Tradjenta) 5 mg DAILY PO Last administered on 07/22/18 08:43; Admin Dose 5 MG; Start 07/04/18 at 14:00 Amlodipine Besylate (Norvasc) 5 mg BID PO Last administered on 07/22/18 08:44; Admin Dose 5 MG; Start 07/07/18 at 15:00 Enoxaparin Sodium (Lovenox) 30 mg DAILY SC Last administered on 07/22/18 08:45; Admin Dose 30 MG; Start 07/09/18 at 09:00 Ferrous Sulfate (Ferrous Sulfate (Ec)) 325 mg DAILY PO Last administered on 07/22/18 08:42; Admin Dose 325 MG; Start 07/11/18 at 10:00 Insulin Aspart (Novolog Insulin Pen) NOVOLOG *MODERATE* ALGORITHM AC MEALS AND BEDTIME SC Last administered on 07/22/18 08:46; Admin Dose 2 UNIT; Start 07/15/18 at 11:20 Zinc Sulfate (Zinc Sulfate) 220 mg DAILY PO Last administered on 07/22/18 08:43; Admin Dose 220 MG; Start 07/18/18 at 09:00 Clonidine (Catapres) 0.2 mg TID PO Last administered on 07/22/18 08:44; Admin Dose 0.2 MG; Start 07/17/18 at 13:00 Collagenase (Santyl) 1 applic DAILY TOP Last administered on 07/22/18 08:44; Admin Dose 1 APPLIC; Start 07/17/18 at 17:30 Mineral Oil (Mineral Oil) 30 ml DAILY PO Last administered on 07/22/18 08:44; Admin Dose 30 ML; Start 07/18/18 at 14:30 Insulin Glargine (Lantus) 10 units DAILY@2000 SC Last administered on 07/21/18 20:49; Admin Dose 10 UNITS; Start 07/21/18 at 20:00 Diagnostic Test (Pha) (Accu-Chek) 1 ea 02 XX ; Start 07/22/18 at 02:00 Insulin Aspart (Novolog Insulin Pen) 3 unit WITH MEALS SC Last administered on 07/22/18 08:47; Admin Dose 3 UNIT; Start 07/21/18 at 18:00 Sodium Chloride 1,000 ml @ 50 mls/hr Q20H IV Last administered on 07/22/18 11:36; Admin Dose 50 MLS/HR; Start 07/21/18 at 16:00 Ceftriaxone Sodium 50 ml @ 100 mls/hr Q24H IVPB Last administered on 07/22/18 11:36; Admin Dose 100 MLS/HR; Start 07/22/18 at 10:00 Acetylcysteine (Nac) 1,200 mg BID PO ; Start 07/22/18 at 12:30; Status GINA HORTA MD Jul 22, 2018 12:14
[2018-07-22] MEDS: ACETYLCYSTEINE 600 MG CAP PO SCH ×2 (12:40→21:40)
[2018-07-22 14:00] VITALS: BP 118/74; PULSE 61; RESP 18
--- NOTE | 2018-07-22 15:32 | CONS ---
Assessment/Plan Assessment/Plan Hospital Course (Demo Recall) Low grade fevers, + foul odor from B feet dsg Antimicrobials: Cipro Micro: wound cx + HÉCTOR PHYSICAL EXAMINATION: GENERAL: Well-nourished, well-developed 52-year-old man who is awake, in no d istress. HEENT: Head atraumatic, normocephalic. NECK: Supple. CHEST: Rise symmetrical. Breath sounds clear. HEART: S1, S2. ABDOMEN: Soft, bowel tones present. EXTREMITIES: Left foot erythema, edema and pressure sores on his third, second toe, right foot with plantar necrotic skin breakdown. Assessment: 1. Left foot HÉCTOR cellulitis/osteomyelitis ==>s/p amputation of the left third toe and debridement 07/16/18 2. Diabetes 3. Diabetic neuropathy 4. Hypertension 5. Peripheral vascular disease, status post angiogram Plan: Clinically unchanged, low grade fevers and + smell from his wounds, will start Vanco and Zosyn, await for dsg change per podiatry, repeat cx's prn l BEVERLY RN Consultation Date/Type/Reason Admit Date/Time Jul 03, 2018 at 22:10 Initial Consult Date 07/04/18 Type of Consult id Date/Time of Note DATE: 07/22/18 TIME: 15:30 Exam/Review of Systems Exam Vitals Vital Signs Date Temp Pulse Resp B/P (MAP) Pulse Ox O2 O2 Flow FiO2 Time Delivery Rate 07/22/18 98.9 61 18 118/74 98 14:00 (89) 07/21/18 Room Air 14:21 Intake and Output 07/21/18 07/21/18 07/22/18 1515:00 23:00 07:00 IntakeIntake Total 700 ml BalanceBalance 700 ml Results Result Diagram: 07/22/18 0710 07/22/18 0710 Results 24hrs Laboratory Tests Test 07/21/18 17:45 07/21/18 20:46 07/22/18 07:10 07/22/18 08:23 Bedside Glucose 181 153 147 White Blood Count 8.4 Red Blood Count 3.08 L Hemoglobin 9.5 L Hematocrit 27.2 L Mean Corpuscular 88.3 Volume Mean Corpuscular 30.8 Hemoglobin Mean Corpuscular 34.9 Hemoglobin Concent Red Cell 11.9 Distribution Width Platelet Count 263 Mean Platelet Volume 9.9 Immature 0.400 Granulocytes % Neutrophils % 75.8 Lymphocytes % 14.5 L Monocytes % 7.5 Eosinophils % 1.4 Basophils % 0.4 Nucleated Red Blood 0.0 Cells % Immature 0.030 Granulocytes # Neutrophils # 6.4 Lymphocytes # 1.2 Monocytes # 0.6 Eosinophils # 0.1 Basophils # 0.0 Nucleated Red Blood 0.0 Cells # Sodium Level 139 Potassium Level 4.2 Chloride Level 105 Carbon Dioxide Level 26 Anion Gap 8 Blood Urea Nitrogen 22 H Creatinine 1.59 H Est Glomerular 46 L Filtrat Rate mL/min Glucose Level 149 # Calcium Level 8.9 Phosphorus Level 3.8 Magnesium Level 1.9 Test 07/22/18 12:38 Bedside Glucose 208 Medications Medication Current Medications Acetaminophen/ Hydrocodone Bitart ([place] (5/325)) 1 tab Q4H PRN PO MODERATE PAIN LEVEL 4-6; Start 07/04/18 at 01:30 Pantoprazole (Protonix Tab) 40 mg DAILY@06 PO Last administered on 07/22/18at 06:34; Admin Dose 40 MG; Start 07/04/18 at 06:00 Acetaminophen (Tylenol Tab) 650 mg Q6H PRN PO MILD PAIN(1-3)OR ELEVATED TEMP Last administered on 07/17/18at 08:46; Admin Dose 650 MG; Start 07/04/18 at 01:30 Clonidine (Catapres) 0.1 mg Q6H PRN PO ELEVATED BLOOD PRESSURE Last administered on 07/04/18at 01:47; Admin Dose 0.1 MG; Start 07/04/18 at 01:30 Miscellaneous Information 1 ea NOTE XX ; Start 07/04/18 at 02:00 Glucose (Glutose) 15 gm Q15M PRN PO DECREASED GLUCOSE; Start 07/04/18 at 02:00 Glucose (Glutose) 22.5 gm Q15M PRN PO DECREASED GLUCOSE; Start 07/04/18 at 02:00 Dextrose (D50w Syringe) 25 ml Q15M PRN IV DECREASED GLUCOSE; Start 07/04/18 at 02:00 Dextrose (D50w Syringe) 50 ml Q15M PRN IV DECREASED GLUCOSE; Start 07/04/18 at 02:00 Glucagon (Glucagen) 1 mg Q15M PRN IM DECREASED GLUCOSE; Start 07/04/18 at 02:00 Glucose (Glutose) 15 gm Q15M PRN BUCCAL DECREASED GLUCOSE; Start 07/04/18 at 02:00 Bisacodyl (Dulcolax) 10 mg BID PRN PO CONSTIPATION; Start 07/04/18 at 01:30 Miscellaneous Information (Pending Santyl Order For Wound Care) This patient mora... PRN PRN XX WOUND CARE; Start 07/04/18 at 02:00 Pentoxifylline (Trental) 400 mg TID PO Last administered on 07/22/18 12:39; Admin Dose 400 MG; Start 07/04/18 at 21:00 Linagliptin (Tradjenta) 5 mg DAILY PO Last administered on 07/22/18 08:43; Admin Dose 5 MG; Start 07/04/18 at 14:00 Amlodipine Besylate (Norvasc) 5 mg BID PO Last administered on 07/22/18 08:44; Admin Dose 5 MG; Start 07/07/18 at 15:00 Enoxaparin Sodium (Lovenox) 30 mg DAILY SC Last administered on 07/22/18 08:45; Admin Dose 30 MG; Start 07/09/18 at 09:00 Ferrous Sulfate (Ferrous Sulfate (Ec)) 325 mg DAILY PO Last administered on 06/27 08:42; Admin Dose 325 MG; Start 07/11/18 at 10:00 Insulin Aspart (Novolog Insulin Pen) NOVOLOG *MODERATE* ALGORITHM AC MEALS AND BEDTIME SC Last administered on 07/22/18 12:45; Admin Dose 4 UNIT; Start 07/15/18 at 11:20 Zinc Sulfate (Zinc Sulfate) 220 mg DAILY PO Last administered on 07/22/18 08:43; Admin Dose 220 MG; Start 07/18/18 at 09:00 Clonidine (Catapres) 0.2 mg TID PO Last administered on 07/22/18 12:43; Admin Dose 0.2 MG; Start 07/17/18 at 13:00 Collagenase (Santyl) 1 applic DAILY TOP Last administered on 07/22/18 08:44; Admin Dose 1 APPLIC; Start 07/17/18 at 17:30 Mineral Oil (Mineral Oil) 30 ml DAILY PO Last administered on 07/22/18 08:44; Admin Dose 30 ML; Start 07/18/18 at 14:30 Insulin Glargine (Lantus) 10 units DAILY@2000 SC Last administered on 07/21/18at 20:49; Admin Dose 10 UNITS; Start 07/21/18 at 20:00 Diagnostic Test (Pha) (Accu-Chek) 1 ea 02 XX ; Start 07/22/18 at 02:00 Insulin Aspart (Novolog Insulin Pen) 3 unit WITH MEALS SC Last administered on 07/22/18at 12:46; Admin Dose 3 UNIT; Start 07/21/18 at 18:00 Sodium Chloride 1,000 ml @ 50 mls/hr Q20H IV Last administered on 07/22/18 11:36; Admin Dose 50 MLS/HR; Start 07/21/18 at 16:00 Ceftriaxone Sodium 50 ml @ 100 mls/hr Q24H IVPB Last administered on 07/22/18at 11:36; Admin Dose 100 MLS/HR; Start 07/22/18 at 10:00 Acetylcysteine (Nac) 1,200 mg BID PO Last administered on 07/22/18at 12:40; Admin Dose 1,200 MG; Start 07/22/18 at 12:30 ROXANNA SOMERS NP Jul 22, 2018 15:32
[2018-07-22] MEDS ORDERED: VANCOMYCIN IV PER PHARMACY XX SCH (16:00)
[2018-07-22] MEDS: PIPER-TAZO 3.375 GM IV (PMX) 100 ML IVPB SCH ×2 (16:15→21:28)
[2018-07-22] MEDS ORDERED: VANCOMYCIN HCL 1.5 GM in SOD CHLORIDE 0.9% 250 ML IVPB SCH (17:30)
[2018-07-22 19:52] VITALS: BP 126/72; PULSE 65; RESP 20
[2018-07-22] MEDS: INSULIN GLARGINE [LANTus] (100 UNITS/ML) SYG SC SCH (21:40)
[2018-07-23] VITALS (11 sets, daily range): BP systolic 119–138; BP diastolic 73–82; PULSE 62–66; RESP 16–20
[2018-07-23] MEDS ORDERED: DEXTROSE 5% 1,000 ML IV SCH
[2018-07-23] MEDS: INSULIN ASPART [NOVOLOG] 3 ML PEN SC SCH ×9 (01:20→20:42)
[2018-07-23] MEDS ORDERED: ACCU-CHEK XX SCH (02:00)
[2018-07-23] MEDS: PANTOPRAZOLE (EC) 40 MG TAB PO SCH (05:10)
[2018-07-23] MEDS: PIPER-TAZO 3.375 GM IV (PMX) 100 ML IVPB SCH ×2 (05:13→14:41)
[2018-07-23] MEDS: VANCOMYCIN 750 MG (PMX) 250 ML IVPB SCH ×2 (06:07→17:55)
[2018-07-23] MEDS: FERROUS SULFATE (EC) 325 MG TAB PO SCH (08:33)
[2018-07-23] MEDS: ACETYLCYSTEINE 600 MG CAP PO SCH ×2 (08:33→20:27)
[2018-07-23] MEDS: ZINC SULFATE 220 MG CAP PO SCH (08:33)
[2018-07-23] MEDS: PENTOXIFYLLINE (SR) 400 MG TAB PO SCH ×3 (08:33→20:27)
[2018-07-23] MEDS: MINERAL OIL 30ML CUP PO SCH (08:33)
[2018-07-23] MEDS: LINAGLIPTIN 5 MG TABLET PO SCH (08:33)
[2018-07-23] MEDS: COLLAGENASE 5 GM (UD JAR) TOP SCH (08:34)
[2018-07-23] MEDS: AMLODIPINE 5 MG TAB PO SCH ×2 (08:34→20:27)
[2018-07-23] MEDS: ENOXAPARIN 30 MG/0.3 ML SYG SC SCH (08:39)
[2018-07-23] MEDS ORDERED: MIDAZOLAM 1 MG/ML 2 ML INJ ONE (09:46)
[2018-07-23] MEDS ORDERED: PROPOFOL 20 ML ONE (09:46)
[2018-07-23] MEDS ORDERED: FENTAnyl 50 MCG/ML VIAL ONE (09:46)
[2018-07-23] MEDS ORDERED: METOCLOPRAMIDE 10 MG INJ ONE (09:47)
--- NOTE | 2018-07-23 10:15 | PREAC ---
Date/Time of Note Date/Time of Note DATE: 07/23/18 TIME: 10:12 Anesthesia Eval and Record Evaluation Time Pre-Procedure Interview DATE: 07/23/18 TIME: 10:12 Age 52 Sex male NPO: 8 hrs Preoperative diagnosis Lower extremity PVD Planned procedure LE angiogram Past Medical History Past Medical History: Includes Cardio: HTN, OR, CHF, Other (PAD, PVD) Endo: Diabetes Pulm: Smoking Hx Neuro: Peripheral neuropathy Renal: DANIELLE, CKD Hepatic: Alcohol abuse Heme: Anemia Recreational drugs: Other Surgery & Anesthesia Issues No known issue Meds Anticoagulation: No Beta Sadie within 24 hr: No Reason Beta Sadie not given: Pt. not on B-Sadie Active Scripts Insulin Aspart* (Novolog Insulin Pen*) 100 Unit/Ml Soln, 0 UNIT SC AC MEALS AND BEDTIME for 30 Days Prov:TEODORO RIDER 07/19/18 Clonidine Hcl* (Catapres*) 0.2 Mg Tablet, 0.2 MG PO TID for 30 Days, TAB Prov:TEODORO RIDER 07/19/18 Amlodipine Besylate* (Amlodipine Besylate*) 5 Mg Tablet, 10 MG PO DAILY for 30 Days, TAB Prov:TEODORO RIDER 07/19/18 Pentoxifylline* (Pentoxifylline*) 400 Mg Tablet.sa, 400 MG PO TID for 30 Days Prov:TEODORO RIDER 07/19/18 Ferrous Sulfate* (Ferrous Sulfate*) 325 Mg Tabec, 325 MG PO DAILY for 30 Days, TAB Prov:TEODORO RIDER 07/19/18 Ciprofloxacin Hcl* (Ciprofloxacin Hcl*) 500 Mg Tablet, 500 MG PO BID@ for 42 Days, TAB Prov:TEODORO RIDER 07/19/18 Linagliptin (TRADJENTA) 5 Mg Tablet, 5 MG PO DAILY for 30 Days, TAB Prov:GINA SUTTON MD 03/18/18 Current Medications Acetaminophen/ Hydrocodone Bitart ([place] (5/325)) 1 tab Q4H PRN PO MODERATE PAIN LEVEL 4-6; Start 07/04/18 at 01:30 Pantoprazole (Protonix Tab) 40 mg DAILY@06 PO Last administered on 07/22/18at 06:34; Admin Dose 40 MG; Start 07/04/18 at 06:00 Acetaminophen (Tylenol Tab) 650 mg Q6H PRN PO MILD PAIN(1-3)OR ELEVATED TEMP Last administered on 07/17/18at 08:46; Admin Dose 650 MG; Start 07/04/18 at 01:30 Clonidine (Catapres) 0.1 mg Q6H PRN PO ELEVATED BLOOD PRESSURE Last administered on 07/04/18at 01:47; Admin Dose 0.1 MG; Start 07/04/18 at 01:30 Miscellaneous Information 1 ea NOTE XX ; Start 07/04/18 at 02:00 Glucose (Glutose) 15 gm Q15M PRN PO DECREASED GLUCOSE; Start 07/04/18 at 02:00 Glucose (Glutose) 22.5 gm Q15M PRN PO DECREASED GLUCOSE; Start 07/04/18 at 02:00 Dextrose (D50w Syringe) 25 ml Q15M PRN IV DECREASED GLUCOSE; Start 07/04/18 at 02:00 Dextrose (D50w Syringe) 50 ml Q15M PRN IV DECREASED GLUCOSE; Start 07/04/18 at 02:00 Glucagon (Glucagen) 1 mg Q15M PRN IM DECREASED GLUCOSE; Start 07/04/18 at 02:00 Glucose (Glutose) 15 gm Q15M PRN BUCCAL DECREASED GLUCOSE; Start 07/04/18 at 02:00 Bisacodyl (Dulcolax) 10 mg BID PRN PO CONSTIPATION; Start 07/04/18 at 01:30 Miscellaneous Information (Pending [facility] Order For Wound Care) This patient mora... PRN PRN XX WOUND CARE; Start 07/04/18 at 02:00 Pentoxifylline (Trental) 400 mg TID PO Last administered on 07/23/18at 08:33; Admin Dose 400 MG; Start 07/04/18 at 21:00 Linagliptin (Tradjenta) 5 mg DAILY PO Last administered on 07/23/18 08:33; Admin Dose 5 MG; Start 07/04/18 at 14:00 Amlodipine Besylate (Norvasc) 5 mg BID PO Last administered on 07/23/18at 08:34; Admin Dose 5 MG; Start 07/07/18 at 15:00 Enoxaparin Sodium (Lovenox) 30 mg DAILY SC Last administered on 07/22/18 08:45; Admin Dose 30 MG; Start 07/09/18 at 09:00 Ferrous Sulfate (Ferrous Sulfate (Ec)) 325 mg DAILY PO Last administered on 07/23/18 08:33; Admin Dose 325 MG; Start 07/11/18 at 10:00 Zinc Sulfate (Zinc Sulfate) 220 mg DAILY PO Last administered on 07/23/18 08:33; Admin Dose 220 MG; Start 07/18/18 at 09:00 Clonidine (Catapres) 0.2 mg TID PO Last administered on 07/23/18 08:33; Admin Dose 0.2 MG; Start 07/17/18 at 13:00 Collagenase (Santyl) 1 applic DAILY TOP Last administered on 07/23/18 08:34; Admin Dose 1 APPLIC; Start 07/17/18 at 17:30 Mineral Oil (Mineral Oil) 30 ml DAILY PO Last administered on 07/23/18 08:33; Admin Dose 30 ML; Start 07/18/18 at 14:30 Insulin Glargine (Lantus) 10 units DAILY@2000 SC Last administered on 07/22/18 21:40; Admin Dose 10 UNITS; Start 07/21/18 at 20:00 Insulin Aspart (Novolog Insulin Pen) 3 unit WITH MEALS SC Last administered on 07/22/18 17:18; Admin Dose 3 UNIT; Start 07/21/18 at 18:00 Acetylcysteine (Nac) 1,200 mg BID PO Last administered on 07/23/18 08:33; Admin Dose 1,200 MG; Start 07/22/18 at 12:30 Vancomycin HCl (Vanco Iv Per Pharmacy) VANCOMYCIN PER PHARMACY PER PROTOCOL XX ; Start 07/22/18 at 16:00 Piperacillin Sod/ Tazobactam Sod 100 ml @ 200 mls/hr Q8 IVPB Last administered on 07/23/18 05:13; Admin Dose 200 MLS/HR; Start 07/22/18 at 16:00 Vancomycin/Sodium Chloride 250 ml @ 125 mls/hr Q12H IVPB Last administered on 07/23/18 06:07; Admin Dose 125 MLS/HR; Start 07/23/18 at 06:00 Dextrose 1,000 ml @ 20 mls/hr Q24H IV Last administered on 07/23/18 00:50; Admin Dose 20 MLS/HR; Start 07/23/18 at 00:00 Insulin Aspart (Novolog Insulin Pen) NOVOLOG *MODERATE* ALGORI... Q4 SC Last administered on 07/23/18at 08:37; Admin Dose 2 UNIT; Start 07/23/18 at 01:00 Meds reviewed: Yes Allergies Coded Allergies: No Known Allergy (Unverified , 07/04/18) Allergies Reviewed: Yes Labs/Studies Labs Reviewed: Reviewed by anesthesiologist Result Diagram: 07/22/18 0710 07/22/18 0710 test: N/A Pre-procedure Exam Last vitals Vital Signs Date Temp Pulse Resp B/P (MAP) Pulse Ox O2 O2 Flow FiO2 Time Delivery Rate 07/23/18 98.0 64 17 124/73 98 07:59 (90) 07/23/18 Room Air 01:34 Airway: Adequate mouth opening, Adequate thyromental dist Mallampati: Mallampati III Teeth: Abnormal (poor dentition) Lung: Normal Heart: Normal ASA Physical Status ASA physical status: 3 Emergency: None Planned Anesthetic General/MAC: LMA Planned Pain Management Parenteral pain med, Local by surgeon Pre-operative Attestations Prior to commencing anesthesia and surgery, the patient was re-evaluated, there was verification of: *The patient's identity *The results of appropriate recent lab work and preoperative vital signs *The above evaluation not changing prior to induction *Anesthetic plan, risk benefits, alternative and complications discussed with patient/family; questions answered; patient/family understands, accepts and wishes to proceed. [employer] Report Developer used (me) TODD BOWMAN MD Jul 23, 2018 10:15
[2018-07-23] MEDS ORDERED: LEVALBUTEROL (NEB) 1.25 MG/0.5 ML AMP HHN PRN (10:30)
[2018-07-23] MEDS ORDERED: LABETALOL HCL 20MG INJ IV PRN (10:30)
[2018-07-23] MEDS ORDERED: ONDANSETRON 4 MG INJ IV PRN (10:30)
[2018-07-23] MEDS ORDERED: DIPHENHYDRAMINE 50 MG INJ IV PRN (10:30)
[2018-07-23] MEDS ORDERED: MIDAZOLAM 1 MG/ML 2 ML INJ IV PRN (10:30)
[2018-07-23] MEDS ORDERED: LORAZEPAM 2 MG INJ IV PRN (10:30)
[2018-07-23] MEDS ORDERED: hydrALAzine 20 MG INJ IV PRN (10:30)
[2018-07-23] MEDS ORDERED: FENTAnyl 50 MCG/ML VIAL IV PRN (10:30)
[2018-07-23] MEDS ORDERED: HYDROmorphONE 1 MG/5 ML IV SYRINGE IV PRN ×2 (10:30)
[2018-07-23] MEDS ORDERED: IPRATROPIUM (NEB) 0.5 MG/2.5 ML AMP HHN PRN (10:30)
[2018-07-23] MEDS ORDERED: IOHEXOL 300MG/ML 30 ML BTL ONE (10:31)
[2018-07-23] MEDS ORDERED: LIDOCAINE 1% (MPF) 30 ML INJ ONE (10:39)
[2018-07-23] MEDS ORDERED: HEPARIN 1000 UNITS/ML 10 ML INJ ONE (10:39)
--- NOTE | 2018-07-23 11:57 | CONS ---
Assessment/Plan Assessment/Plan Hospital Course (Demo Recall) No events, looks comfortable, afebrile Antimicrobials: Zosyn Vanco Micro: wound cx + HÉCTOR PHYSICAL EXAMINATION: GENERAL: Well-nourished, well-developed middle aged man who is awake, in no distress. HEENT: Head atraumatic, normocephalic. NECK: Supple. CHEST: Rise symmetrical. Breath sounds clear. HEART: S1, S2. ABDOMEN: Soft, bowel tones present. EXTREMITIES: Left foot erythema, edema and pressure sores on his third, second toe, right foot with plantar necrotic skin breakdown. Assessment: 1. Left foot HÉCTOR cellulitis/osteomyelitis ==>s/p amputation of the left third toe and debridement 07/16/18, poss ongoing infection 2. Diabetes 3. Diabetic neuropathy 4. Hypertension 5. Peripheral vascular disease, status post angiogram Plan: Clinically unchanged, started on Vanco and Zosyn 07/22 for fevers and foul odor of his wounds, continue present care, f/u podiatry rec-s, pending angiogram Consultation Date/Type/Reason Admit Date/Time Jul 03, 2018 at 22:10 Initial Consult Date 07/04/18 Type of Consult id Date/Time of Note DATE: 07/23/18 TIME: 11:54 Exam/Review of Systems Exam Vitals Vital Signs Date Temp Pulse Resp B/P (MAP) Pulse Ox O2 O2 Flow FiO2 Time Delivery Rate 07/23/18 98.0 64 17 124/73 98 07:59 (90) 07/23/18 Room Air 01:34 Intake and Output 07/22/18 07/22/18 07/23/18 1515:00 23:00 07:00 IntakeIntake Total 990 ml 1050 ml 200.33 ml OutputOutput Total 800 ml 800 ml BalanceBalance 990 ml 250 ml -599.67 ml Results Result Diagram: 07/22/18 0710 07/22/18 0710 Results 24hrs Laboratory Tests Test 07/22/18 12:38 07/22/18 17:06 07/22/18 21:31 07/23/18 01:17 Bedside Glucose 208 149 209 263 H Test 07/23/18 05:14 07/23/18 08:31 Bedside Glucose 209 171 Medications Medication Current Medications Acetaminophen/ Hydrocodone Bitart ([place] (5/325)) 1 tab Q4H PRN PO MODERATE PAIN LEVEL 4-6; Start 07/04/18 at 01:30 Pantoprazole (Protonix Tab) 40 mg DAILY@06 PO Last administered on 07/22/18at 06:34; Admin Dose 40 MG; Start 07/04/18 at 06:00 Acetaminophen (Tylenol Tab) 650 mg Q6H PRN PO MILD PAIN(1-3)OR ELEVATED TEMP Last administered on 07/17/18at 08:46; Admin Dose 650 MG; Start 07/04/18 at 01:30 Clonidine (Catapres) 0.1 mg Q6H PRN PO ELEVATED BLOOD PRESSURE Last administered on 07/04/18at 01:47; Admin Dose 0.1 MG; Start 07/04/18 at 01:30 Miscellaneous Information 1 ea NOTE XX ; Start 07/04/18 at 02:00 Glucose (Glutose) 15 gm Q15M PRN PO DECREASED GLUCOSE; Start 07/04/18 at 02:00 Glucose (Glutose) 22.5 gm Q15M PRN PO DECREASED GLUCOSE; Start 07/04/18 at 02:00 Dextrose (D50w Syringe) 25 ml Q15M PRN IV DECREASED GLUCOSE; Start 07/04/18 at 02:00 Dextrose (D50w Syringe) 50 ml Q15M PRN IV DECREASED GLUCOSE; Start 07/04/18 at 02:00 Glucagon (Glucagen) 1 mg Q15M PRN IM DECREASED GLUCOSE; Start 07/04/18 at 02:00 Glucose (Glutose) 15 gm Q15M PRN BUCCAL DECREASED GLUCOSE; Start 07/04/18 at 02:00 Bisacodyl (Dulcolax) 10 mg BID PRN PO CONSTIPATION; Start 07/04/18 at 01:30 Miscellaneous Information (Pending Santyl Order For Wound Care) This patient mora... PRN PRN XX WOUND CARE; Start 07/04/18 at 02:00 Pentoxifylline (Trental) 400 mg TID PO Last administered on 07/23/18at 08:33; Admin Dose 400 MG; Start 07/04/18 at 21:00 Linagliptin (Tradjenta) 5 mg DAILY PO Last administered on 07/23/18at 08:33; Admin Dose 5 MG; Start 07/04/18 at 14:00 Amlodipine Besylate (Norvasc) 5 mg BID PO Last administered on 07/23/18 08:34; Admin Dose 5 MG; Start 07/07/18 at 15:00 Enoxaparin Sodium (Lovenox) 30 mg DAILY SC Last administered on 07/22/18 08:45; Admin Dose 30 MG; Start 07/09/18 at 09:00 Ferrous Sulfate (Ferrous Sulfate (Ec)) 325 mg DAILY PO Last administered on 07/23/18 08:33; Admin Dose 325 MG; Start 07/11/18 at 10:00 Zinc Sulfate (Zinc Sulfate) 220 mg DAILY PO Last administered on 07/23/18 08:33; Admin Dose 220 MG; Start 07/18/18 at 09:00 Clonidine (Catapres) 0.2 mg TID PO Last administered on 07/23/18 08:33; Admin Dose 0.2 MG; Start 07/17/18 at 13:00 Collagenase (Santyl) 1 applic DAILY TOP Last administered on 07/23/18 08:34; Admin Dose 1 APPLIC; Start 07/17/18 at 17:30 Mineral Oil (Mineral Oil) 30 ml DAILY PO Last administered on 07/23/18 08:33; Admin Dose 30 ML; Start 07/18/18 at 14:30 Insulin Glargine (Lantus) 10 units DAILY@2000 SC Last administered on 07/22/18 21:40; Admin Dose 10 UNITS; Start 07/21/18 at 20:00 Insulin Aspart (Novolog Insulin Pen) 3 unit WITH MEALS SC Last administered on 07/22/18 17:18; Admin Dose 3 UNIT; Start 07/21/18 at 18:00 Acetylcysteine (Nac) 1,200 mg BID PO Last administered on 07/23/18 08:33; Admin Dose 1,200 MG; Start 07/22/18 at 12:30 Vancomycin HCl (Vanco Iv Per Pharmacy) VANCOMYCIN PER PHARMACY PER PROTOCOL XX ; Start 07/22/18 at 16:00 Piperacillin Sod/ Tazobactam Sod 100 ml @ 200 mls/hr Q8 IVPB Last administered on 07/23/18 05:13; Admin Dose 200 MLS/HR; Start 07/22/18 at 16:00 Vancomycin/Sodium Chloride 250 ml @ 125 mls/hr Q12H IVPB Last administered on 07/23/18at 06:07; Admin Dose 125 MLS/HR; Start 07/23/18 at 06:00 Dextrose 1,000 ml @ 20 mls/hr Q24H IV Last administered on 07/23/18at 00:50; Admin Dose 20 MLS/HR; Start 07/23/18 at 00:00 Insulin Aspart (Novolog Insulin Pen) NOVOLOG *MODERATE* ALGORI... Q4 SC Last administered on 07/23/18at 08:37; Admin Dose 2 UNIT; Start 07/23/18 at 01:00 Hydromorphone HCl (Dilaudid) 0.2 mg PACU PRN IV MILD PAIN 1-3; Start 07/23/18 at 10:30; Stop 07/23/18 at 16:00 Hydromorphone HCl (Dilaudid) 0.4 mg PACU PRN IV MOD PAIN 4-6; Start 07/23/18 at 10:30; Stop 07/23/18 at 16:00 Fentanyl (Sublimaze) 25 mcg PACU ORDER PRN IV MILD PAIN 1-3; Start 07/23/18 at 10:30; Stop 07/23/18 at 16:00 Ondansetron HCl (Zofran Inj) 4 mg PACU ORDER PRN IV NAUSEA/VOMITING; Start 07/23/18 at 10:30; Stop 07/23/18 at 16:00 Labetalol HCl (Labetalol) 5 mg PACU ORDER PRN IV HIGH BLOOD PRESSURE; Start 07/23/18 at 10:30; Stop 07/23/18 at 16:00 Hydralazine HCl (Apresoline) 5 mg PACU ORDER PRN IV HIGH BLOOD PRESSURE; Start 07/23/18 at 10:30; Stop 07/23/18 at 16:00 Levalbuterol (Xopenex Neb) 1.25 mg PACU ORDER PRN HHN .WHEEZING; Start 07/23/18 at 10:30; Stop 07/23/18 at 16:00 Ipratropium [place] (Atrovent 0.02% (Neb)) 0.5 mg PACU ORDER PRN HHN .WHEEZING; Start 07/23/18 at 10:30; Stop 07/23/18 at 16:00 Diphenhydramine HCl (Benadryl) 25 mg PACU ORDER PRN IV .PRURITUS; Start 07/23/18 at 10:30; Stop 07/23/18 at 16:00 Lorazepam (Ativan) 1 mg PACU ORDER PRN IV .ANXIETY; Start 07/23/18 at 10:30; Stop 07/23/18 at 16:00 Midazolam HCl (Versed) 0.5 mg PACU ORDER PRN IV .ANXIETY; Start 07/23/18 at 10:30; Stop 07/23/18 at 16:00 ROXANNA SOMERS NP Jul 23, 2018 11:57
--- NOTE | 2018-07-23 12:13 | PAC ---
Date/Time of Note Date/Time of Note DATE: 07/23/18 TIME: 12:12 Post-Anesthesia Notes Post-Anesthesia Note Last documented vital signs Vital Signs Date Temp Pulse Resp B/P (MAP) Pulse Ox O2 O2 Flow FiO2 Time Delivery Rate 07/23/18 98.8 12:08 07/23/18 64 17 124/73 98 07:59 (90) 07/23/18 Room Air 01:34 Activity: WNL Respiratory function: WNL Cardiovascular function: WNL Mental status: Baseline Pain reasonably controlled: Yes Hydration appropriate: Yes Nausea/Vomiting absent: Yes TODD BOWMAN MD Jul 23, 2018 12:13
--- NOTE | 2018-07-23 12:37 | OPR ---
Date/Time of Note Date/Time of Note DATE: 07/23/18 TIME: 12:33 Operative Report Procedure Date: Jul 23, 2018 Preoperative Diagnosis Peripheral vascular disease Postoperative Diagnosis Vascular disease Operation/Procedure Performed Lower extremity angiogram Interpretation supervision of the angiogram Guidance into the central artery Syncope Surgeon signature line Manager Interface None Anesthesia Type: MAC Estimated Blood Loss: minimal Transfusion none Specimen None Grafts/Implants none Complications none Pt Condition Post Procedure: stable Disposition: PACU Procedure Description Placed in the supine position prepped and draped in usual sterile fashion timeout was called Plan guidance access was gained antegrade right common femoral artery Sheath was advanced over a [email or web address] wire A short 4 Stateless sheath was advanced from the femoral artery down to the popliteal artery Right lower extremity angiogram was done The patient had an angiogram that showed the right femoral system and the popliteal system was patent in the proximal posterior tibial artery was also patent however the tibial artery and peroneal arteries were occluded with no distal target I injected into the catheter and got selective angiograms of the right lower extremity from the popliteal down Additional supervision of the angiogram revealed right popliteal artery patent right peroneal and anterior tibial artery 100% occluded right posterior tibial artery patent proximally down to the ankle where it stopped and there were no targets for revascularization in the foot All hardware was removed appropriate pressure dressing was applied DONTRELL RODRIGUEZ MD Jul 23, 2018 12:37
--- NOTE | 2018-07-23 15:37 | PN ---
Date/Time of Note Date/Time of Note DATE: 07/23/18 TIME: 15:35 Assessment/Plan VTE Prophylaxis Risk score (from Nsg)>0 risk: 3 SCD applied (from Ns): No SCD contraindicated: low risk/ambulating Pharmacological prophylaxis: NA/contraindicated Pharm contraindication: low risk/ambulating Lines/Catheters IV [facility]ter Type (from [facility] Peripheral IV Urinary Cath still in place: No Assessment/Plan Hospital Course Hospital Course 1. Left foot cellulitis. Discoloration of 2 and 3 toes. S/p amputation of the left fourth digit and transmetatarsal amputation of the fifth digit. 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 On Xray soft tissue swelling. Vascular calcification consistent with atherosclerotic disease. Also noted to have right sole of the foot blackish discolorationAmputation of the left third toe . Excisional debridement right foot necrotic open wound measuring 5 x 3 cm to the level of subcutaneous tissue 2. Anemia 3. Overweight 4. DANIELLE, creatinine 1.97. Pt creatinine was 1.73 in [facility] February 2018 and then return to normal. Cr had been improving, and Cr is 1.5 5. DM type II with diabetic neuropathy 6. Hypertension 7. Right foot sole wound 8. Peripheral vascular disease. On Duplex US 09/2017 Monophasic wave forms in bilateral posterior tibial arteries and dorsalis pedis arteries consistent with a significant bilateral infrapopliteal stenosis. 9 Anemia Plan - MRI +Findings consistent with osteomyelitis at the fifth metatarsal amputation site. Findings consistent with osteomyelitis of the third toe distal, and probably middle and proximal phalanges. Findings likely representing osteomyelitis of the second toe distal phalanx. -Per Dr. Chou patient will need likely BKA of the right lower extremity patient has peripheral vascular disease on the right lower extremity that cannot be revascularized Dr. Betancur was reconsulted again - add gentle iv fluids -cw with the vancomycin switch his Zosyn to cefepime due to renal toxicity especially when the patient had contrast today -Hold Lasix in order to prevent contrast nephropathy - cw lantus and mealtime insulin -Continue with pentoxifylline -cwWith clonidine and Norvasc for blood pressure - hold nephrotoxic agents strict I's and O' - GI prophylaxsis Result Diagram: 07/22/18 0710 07/22/18 0710 Results 24hrs Laboratory Tests Test 07/22/18 17:06 07/22/18 21:31 07/23/18 01:17 07/23/18 05:14 Bedside Glucose 149 209 263 H 209 Test 07/23/18 08:31 07/23/18 14:40 Bedside Glucose 171 148 Subjective 24 Hr Interval Summary Free Text/Dictation S/P Angiogram today that showed the right femoral system and the popliteal system was patent in the proximal posterior tibial artery was also patent however the tibial artery and peroneal arteries were occluded with no distal target Additional supervision of the angiogram revealed right popliteal artery patent right peroneal and anterior tibial artery 100% occluded right posterior tibial artery patent proximally down to the ankle where it stopped and there were no targets for revascularization in the foot Exam/Review of Systems Exam Vitals Vital Signs Date Temp Pulse Resp B/P (MAP) Pulse Ox O2 O2 Flow FiO2 Time Delivery Rate 07/23/18 62 17 119/74 97 Room Air 12:44 (89) 07/23/18 4.0 12:34 07/23/18 98.8 12:09 Intake and Output 07/22/18 07/22/18 07/23/18 1414:59 22:59 06:59 IntakeIntake Total 990 ml 1050 ml 200.33 ml OutputOutput Total 800 ml 800 ml BalanceBalance 990 ml 250 ml -599.67 ml Exam xam Constitutional: alert, oriented Psych: no complaints Neck: supple Respiratory: clear to auscultation Cardiovascular: regular rate and rhythm Gastrointestinal: soft Musculoskeletal: rt foot gangrenous area bottom foot left foot s/p amputation of left 3rd toe Results Results 24hrs Laboratory Tests Test 07/22/18 17:06 07/22/18 21:31 07/23/18 01:17 07/23/18 05:14 Bedside Glucose 149 209 263 H 209 Test 07/23/18 08:31 07/23/18 14:40 Bedside Glucose 171 148 Medications Medication Current Medications Acetaminophen/ Hydrocodone Bitart ([place] (5/325)) 1 tab Q4H PRN PO MODERATE PAIN LEVEL 4-6; Start 07/04/18 at 01:30 Pantoprazole (Protonix Tab) 40 mg DAILY@06 PO Last administered on 07/22/18at 06:34; Admin Dose 40 MG; Start 07/04/18 at 06:00 Acetaminophen (Tylenol Tab) 650 mg Q6H PRN PO MILD PAIN(1-3)OR ELEVATED TEMP Last administered on 07/17/18 08:46; Admin Dose 650 MG; Start 07/04/18 at 01:30 Clonidine (Catapres) 0.1 mg Q6H PRN PO ELEVATED BLOOD PRESSURE Last administered on 07/04/18 01:47; Admin Dose 0.1 MG; Start 07/04/18 at 01:30 Miscellaneous Information 1 ea NOTE XX ; Start 07/04/18 at 02:00 Glucose (Glutose) 15 gm Q15M PRN PO DECREASED GLUCOSE; Start 07/04/18 at 02:00 Glucose (Glutose) 22.5 gm Q15M PRN PO DECREASED GLUCOSE; Start 07/04/18 at 02:00 Dextrose (D50w Syringe) 25 ml Q15M PRN IV DECREASED GLUCOSE; Start 07/04/18 at 02:00 Dextrose (D50w Syringe) 50 ml Q15M PRN IV DECREASED GLUCOSE; Start 07/04/18 at 02:00 Glucagon (Glucagen) 1 mg Q15M PRN IM DECREASED GLUCOSE; Start 07/04/18 at 02:00 Glucose (Glutose) 15 gm Q15M PRN BUCCAL DECREASED GLUCOSE; Start 07/04/18 at 02:00 Bisacodyl (Dulcolax) 10 mg BID PRN PO CONSTIPATION; Start 07/04/18 at 01:30 [facility] This patient moar... PRN PRN XX WOUND CARE; Start 07/04/18 at 02:00 Pentoxifylline (Trental) 400 mg TID PO Last administered on 07/23/18at 14:42; Admin Dose 400 MG; Start 07/04/18 at 21:00 Linagliptin (Tradjenta) 5 mg DAILY PO Last administered on 07/23/18 08:33; Admin Dose 5 MG; Start 07/04/18 at 14:00 Amlodipine Besylate (Norvasc) 5 mg BID PO Last administered on 07/23/18 08:34; Admin Dose 5 MG; Start 07/07/18 at 15:00 Enoxaparin Sodium (Lovenox) 30 mg DAILY SC Last administered on 07/22/18at 08:45; Admin Dose 30 MG; Start 07/09/18 at 09:00 Ferrous Sulfate (Ferrous Sulfate (Ec)) 325 mg DAILY PO Last administered on 07/23/18 08:33; Admin Dose 325 MG; Start 07/11/18 at 10:00 Zinc Sulfate (Zinc Sulfate) 220 mg DAILY PO Last administered on 07/23/18 08:33; Admin Dose 220 MG; Start 07/18/18 at 09:00 Clonidine (Catapres) 0.2 mg TID PO Last administered on 07/23/18 14:43; Admin Dose 0.2 MG; Start 07/17/18 at 13:00 Collagenase (Santyl) 1 applic DAILY TOP Last administered on 07/23/18 08:34; Admin Dose 1 APPLIC; Start 07/17/18 at 17:30 Mineral Oil (Mineral Oil) 30 ml DAILY PO Last administered on 07/23/18 08:33; Admin Dose 30 ML; Start 07/18/18 at 14:30 Insulin Glargine (Lantus) 10 units DAILY@2000 SC Last administered on 07/22/18 21:40; Admin Dose 10 UNITS; Start 07/21/18 at 20:00 Insulin Aspart (Novolog Insulin Pen) 3 unit WITH MEALS SC Last administered on 07/23/18 14:51; Admin Dose 3 UNIT; Start 07/21/18 at 18:00 Acetylcysteine (Nac) 1,200 mg BID PO Last administered on 07/23/18 08:33; Admin Dose 1,200 MG; Start 07/22/18 at 12:30 Vancomycin HCl (Vanco Iv Per Pharmacy) VANCOMYCIN PER PHARMACY PER PROTOCOL XX ; Start 07/22/18 at 16:00 Vancomycin/Sodium Chloride 250 ml @ 125 mls/hr Q12H IVPB Last administered on 07/23/18 06:07; Admin Dose 125 MLS/HR; Start 07/23/18 at 06:00 Insulin Aspart (Novolog Insulin Pen) NOVOLOG *MODERATE* ALGORI... Q4 SC Last administered on 07/23/18 15:03; Admin Dose 2 UNIT; Start 07/23/18 at 01:00 Hydromorphone HCl (Dilaudid) 0.2 mg PACU PRN IV MILD PAIN 1-3; Start 07/23/18 at 10:30; Stop 07/23/18 at 16:00 Hydromorphone HCl (Dilaudid) 0.4 mg PACU PRN IV MOD PAIN 4-6; Start 07/23/18 at 10:30; Stop 07/23/18 at 16:00 Fentanyl (Sublimaze) 25 mcg PACU ORDER PRN IV MILD PAIN 1-3; Start 07/23/18 at 10:30; Stop 07/23/18 at 16:00 Ondansetron HCl (Zofran Inj) 4 mg PACU ORDER PRN IV NAUSEA/VOMITING; Start 07/23/18 at 10:30; Stop 07/23/18 at 16:00 Labetalol HCl (Labetalol) 5 mg PACU ORDER PRN IV HIGH BLOOD PRESSURE; Start 07/23/18 at 10:30; Stop 07/23/18 at 16:00 Hydralazine HCl (Apresoline) 5 mg PACU ORDER PRN IV HIGH BLOOD PRESSURE; Start 07/23/18 at 10:30; Stop 07/23/18 at 16:00 Levalbuterol (Xopenex Neb) 1.25 mg PACU ORDER PRN HHN .WHEEZING; Start 07/23/18 at 10:30; Stop 07/23/18 at 16:00 Ipratropium [place] (Atrovent 0.02% (Neb)) 0.5 mg PACU ORDER PRN HHN .WHEEZING; Start 07/23/18 at 10:30; Stop 07/23/18 at 16:00 Diphenhydramine HCl (Benadryl) 25 mg PACU ORDER PRN IV .PRURITUS; Start 07/23/18 at 10:30; Stop 07/23/18 at 16:00 Lorazepam (Ativan) 1 mg PACU ORDER PRN IV .ANXIETY; Start 07/23/18 at 10:30; St op 07/23/18 at 16:00 Midazolam HCl (Versed) 0.5 mg PACU ORDER PRN IV .ANXIETY; Start 07/23/18 at 10:3 0; Stop 07/23/18 at 16:00 Sodium Chloride 1,000 ml @ 70 mls/hr [id number] IV ; Start 07/23/18 at 16:00; Status UNV Cefepime HCl 50 ml @ 100 mls/hr Q12 IVPB ; Start 07/23/18 at 21:00; Status UNV GINA SUTTON MD Jul 23, 2018 15:37
[2018-07-23] MEDS: SOD CHLORIDE 0.9% 1,000 ML IV SCH (16:26)
[2018-07-23] MEDS: INSULIN GLARGINE [LANTus] (100 UNITS/ML) SYG SC SCH (20:43)
[2018-07-23] MEDS: CEFEPIME 1GM/50 ML (PMX) 50 ML IVPB SCH (20:44)
[2018-07-24 02:00] VITALS: BP 142/84; PULSE 74; RESP 17
[2018-07-24] MEDS: ACCU-CHEK XX SCH (02:00)
[2018-07-24] MEDS: SOD CHLORIDE 0.9% 1,000 ML IV SCH ×2 (03:13→17:31)
[2018-07-24] MEDS: VANCOMYCIN 750 MG (PMX) 250 ML IVPB SCH ×2 (06:50→18:52)
[2018-07-24] MEDS: PANTOPRAZOLE (EC) 40 MG TAB PO SCH (06:50)
[2018-07-24 08:00] VITALS: BP 137/73; PULSE 71; RESP 18
[2018-07-24] MEDS: INSULIN ASPART [NOVOLOG] 3 ML PEN SC SCH ×7 (08:00→21:51)
[2018-07-24] MEDS: MINERAL OIL 30ML CUP PO SCH (08:13)
[2018-07-24] MEDS: ACETYLCYSTEINE 600 MG CAP PO SCH (08:15)
[2018-07-24] MEDS: BISACODYL (EC) 5 MG TAB PO PRN (08:15)
[2018-07-24] MEDS: LINAGLIPTIN 5 MG TABLET PO SCH (08:16)
[2018-07-24] MEDS: PENTOXIFYLLINE (SR) 400 MG TAB PO SCH ×3 (08:16→21:51)
[2018-07-24] MEDS: ZINC SULFATE 220 MG CAP PO SCH (08:16)
[2018-07-24] MEDS: FERROUS SULFATE (EC) 325 MG TAB PO SCH (08:17)
[2018-07-24] MEDS: AMLODIPINE 5 MG TAB PO SCH ×2 (08:20→21:52)
[2018-07-24] MEDS: CEFEPIME 1GM/50 ML (PMX) 50 ML IVPB SCH ×2 (09:25→21:53)
[2018-07-24] MEDS: ENOXAPARIN 30 MG/0.3 ML SYG SC SCH (09:26)
[2018-07-24] MEDS: COLLAGENASE 5 GM (UD JAR) TOP SCH (11:14)
--- NOTE | 2018-07-24 12:08 | CONS ---
Assessment/Plan Assessment/Plan Hospital Course (Demo Recall) No events, afebrile Antimicrobials: Cefepime Vanco Micro: wound cx + HÉCTOR PHYSICAL EXAMINATION: GENERAL: Well-nourished, well-developed middle aged man who is awake, in no distress. HEENT: Head atraumatic, normocephalic. NECK: Supple. CHEST: Rise symmetrical. Breath sounds clear. HEART: S1, S2. ABDOMEN: Soft, bowel tones present. EXTREMITIES: Left foot erythema, edema and pressure sores on his third, second toe, right foot with plantar necrotic skin breakdown. Assessment: 1. Left foot HÉCTOR cellulitis/osteomyelitis ==>s/p amputation of the left third toe and debridement 07/16/18, poss ongoing infection 2. Diabetes 3. Diabetic neuropathy 4. Hypertension 5. Peripheral vascular disease, status post angiogram 07/23/18 Plan: Stable, continue present care, wound care per podiatry rec-s Consultation Date/Type/Reason Admit Date/Time Jul 03, 2018 at 22:10 Initial Consult Date 07/04/18 Type of Consult id Date/Time of Note DATE: 07/24/18 TIME: 12:06 Exam/Review of Systems Exam Vitals Vital Signs Date Temp Pulse Resp B/P (MAP) Pulse Ox O2 O2 Flow FiO2 Time Delivery Rate 07/24/18 99.4 71 18 137/73 91 Room Air 08:00 (94) 07/23/18 4.0 12:34 Intake and Output 07/23/18 07/23/18 07/24/18 1515:00 23:00 07:00 IntakeIntake Total 1000 ml 1235 ml 1155.16 ml OutputOutput Total 602 ml BalanceBalance 398 ml 1235 ml 1155.16 ml Results Result Diagram: 07/22/18 0710 07/24/18 0519 Results 24hrs Laboratory Tests Test 07/23/18 14:40 07/23/18 17:59 07/23/18 20:30 07/24/18 01:54 Bedside Glucose 148 161 208 130 Test 07/24/18 05:19 07/24/18 08:12 Sodium Level 140 Potassium Level 4.1 Chloride Level 105 Carbon Dioxide Level 26 Anion Gap 9 Blood Urea Nitrogen 19 Creatinine 1.50 H Est Glomerular 49 L Filtrat Rate mL/min Glucose Level 120 Calcium Level 8.6 Vancomycin Level 15.8 Trough Bedside Glucose 130 Medications Medication Current Medications Acetaminophen/ Hydrocodone Bitart ([place] (5/325)) 1 tab Q4H PRN PO MODERATE PAIN LEVEL 4-6; Start 07/04/18 at 01:30 Pantoprazole (Protonix Tab) 40 mg DAILY@06 PO Last administered on 07/24/18at 06:50; Admin Dose 40 MG; Start 07/04/18 at 06:00 Acetaminophen (Tylenol Tab) 650 mg Q6H PRN PO MILD PAIN(1-3)OR ELEVATED TEMP Last administered on 07/17/18at 08:46; Admin Dose 650 MG; Start 07/04/18 at 01:30 Clonidine (Catapres) 0.1 mg Q6H PRN PO ELEVATED BLOOD PRESSURE Last administered on 07/04/18at 01:47; Admin Dose 0.1 MG; Start 07/04/18 at 01:30 Miscellaneous Information 1 ea NOTE XX ; Start 07/04/18 at 02:00 Glucose (Glutose) 15 gm Q15M PRN PO DECREASED GLUCOSE; Start 07/04/18 at 02:00 Glucose (Glutose) 22.5 gm Q15M PRN PO DECREASED GLUCOSE; Start 07/04/18 at 02:00 Dextrose (D50w Syringe) 25 ml Q15M PRN IV DECREASED GLUCOSE; Start 07/04/18 at 02:00 Dextrose (D50w Syringe) 50 ml Q15M PRN IV DECREASED GLUCOSE; Start 07/04/18 at 02:00 Glucagon (Glucagen) 1 mg Q15M PRN IM DECREASED GLUCOSE; Start 07/04/18 at 02:00 Glucose (Glutose) 15 gm Q15M PRN BUCCAL DECREASED GLUCOSE; Start 07/04/18 at 02:00 Bisacodyl (Dulcolax) 10 mg BID PRN PO CONSTIPATION Last administered on 07/24/18at 08:15; Admin Dose 10 MG; Start 07/04/18 at 01:30 Miscellaneous Information (Pending [facility] Order For Wound Care) This patient mora. .. PRN PRN XX WOUND CARE; Start 07/04/18 at 02:00 Pentoxifylline (Trental) 400 mg TID PO Last administered on 07/24/18at 08:16; Admin Dose 400 MG; Start 07/04/18 at 21:00 Linagliptin (Tradjenta) 5 mg DAILY PO Last administered on 07/24/18 08:16; Admin Dose 5 MG; Start 07/04/18 at 14:00 Amlodipine Besylate (Norvasc) 5 mg BID PO Last administered on 07/24/18 08:20; Admin Dose 5 MG; Start 07/07/18 at 15:00 Enoxaparin Sodium (Lovenox) 30 mg DAILY SC Last administered on 07/24/18 09:26; Admin Dose 30 MG; Start 07/09/18 at 09:00 Ferrous Sulfate (Ferrous Sulfate (Ec)) 325 mg DAILY PO Last administered on 07/24/18 08:17; Admin Dose 325 MG; Start 07/11/18 at 10:00 Zinc Sulfate (Zinc Sulfate) 220 mg DAILY PO Last administered on 07/24/18 08:16; Admin Dose 220 MG; Start 07/18/18 at 09:00 Clonidine (Catapres) 0.2 mg TID PO Last administered on 07/24/18 08:20; Admin Dose 0.2 MG; Start 07/17/18 at 13:00 Collagenase (Santyl) 1 applic DAILY TOP Last administered on 07/24/18 11:14; Admin Dose 1 APPLIC; Start 07/17/18 at 17:30 Mineral Oil (Mineral Oil) 30 ml DAILY PO Last administered on 07/24/18 08:13; Admin Dose 30 ML; Start 07/18/18 at 14:30 Insulin Glargine (Lantus) 10 units DAILY@2000 SC Last administered on 07/23/18 20:43; Admin Dose 10 UNITS; Start 07/21/18 at 20:00 Insulin Aspart (Novolog Insulin Pen) 3 unit WITH MEALS SC Last administered on 07/24/18 08:25; Admin Dose 3 UNIT; Start 07/21/18 at 18:00 Acetylcysteine (Nac) 1,200 mg BID PO Last administered on 07/24/18 08:15; Admin Dose 1,200 MG; Start 07/22/18 at 12:30 Vancomycin HCl (Vanco Iv Per Pharmacy) VANCOMYCIN PER PHARMACY PER PROTOCOL XX ; Start 07/22/18 at 16:00 Vancomycin/Sodium Chloride 250 ml @ 125 mls/hr Q12H IVPB Last administered on 3/29/19at 06:50; Admin Dose 125 MLS/HR; Start 07/23/18 at 06:00 Sodium Chloride 1,000 ml @ 70 mls/hr [id number] IV Last administered on 07/24/18at 03:13; Admin Dose 70 MLS/HR; Start 07/23/18 at 16:00 Cefepime HCl 50 ml @ 100 mls/hr Q12 IVPB Last administered on 07/24/18at 09:25; Admin Dose 100 MLS/HR; Start 07/23/18 at 21:00 Diagnostic Test (Pha) (Accu-Chek) 1 ea 02 XX ; Start 07/24/18 at 02:00 Insulin Aspart (Novolog Insulin Pen) NOVOLOG *MODERATE* ALGORITHM WITH MEALS BEDTIME SC Last administered on 07/23/18at 20:42; Admin Dose 1 UNIT; Start 07/23/18 at 21:00 ROXANNA SOMERS NP Jul 24, 2018 12:07
[2018-07-24 12:18] VITALS: BP 142/74; PULSE 72; RESP 16
[2018-07-24] MEDS ORDERED: LIDOCAINE 1% (MPF) 5 ML VIAL SC ONE (14:00)
--- NOTE | 2018-07-24 14:27 | PN ---
TEODORO RIDER 07/24/18 1339: Date/Time of Note Date/Time of Note DATE: 07/24/18 TIME: 13:29 Assessment/Plan VTE Prophylaxis Risk score (from Nsg)>0 risk: 5 SCD applied (from Nsg): Yes Pharmacological prophylaxis: LMWH Lines/Catheters IV Catheter Type (from Nrs): Peripheral IV Urinary Cath still in place: No Assessment/Plan Hospital Course 1. Left foot cellulitis. Discoloration of 2 and 3 toes. S/p amputation of the left fourth digit and transmetatarsal amputation of the fifth digit. 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 On Xray soft tissue swelling. Vascular calci fication consistent with atherosclerotic disease. Healing fracture at the base of the second metatarsal. S/p amputation of the left third toe with excisional debridement right foot necrotic open wound measuring 5 x 3 cm to the level of subcutaneous tissue by dr Betancur 07/16/2018 2. Anemia 3. Overweight 4. DANIELLE, creatinine 1.5 today from 1.97 on hospitalization. Pt creatinine was 1.73 in [facility] February 2018 and then return to normal 5. DM type II with diabetic neuropathy 6. Hypertension 7. Right foot sole wound, s/p debridement 8. Peripheral vascular disease. On Duplex US 09/2017 Monophasic wave forms in bilateral posterior tibial arteries and dorsalis pedis arteries consistent with a significant bilateral infrapopliteal stenosis. S/p abdominal aortogram and third order degree angiogram left lower extremity by dr De La Rosa 07/13/2018 Assessment/Plan -spoke to patinet in his Language about necessity of amputation right foot and might be upper -invite family tomorrow to answer questions -PICC line -home health preparation with 6 weeks IV -Dr. Betancur was reconsulted again will see pt again in clinic - c/w gentle iv fluids -cw with the vancomycin/ cefepime -Hold Lasix in order to prevent contrast nephropathy - cw lantus and mealtime insulin -Continue with pentoxifylline -cw clonidine and Norvasc for blood pressure - hold nephrotoxic agents -strict I's and O' - GI prophylaxis Result Diagram: 07/22/18 0710 07/24/18 0519 Results 24hrs Laboratory Tests Test 07/23/18 14:40 07/23/18 17:59 07/23/18 20:30 07/24/18 01:54 Bedside Glucose 148 161 208 130 Test 07/24/18 05:19 07/24/18 08:12 07/24/18 12:21 Sodium Level 140 Potassium Level 4.1 Chloride Level 105 Carbon Dioxide Level 26 Anion Gap 9 Blood Urea Nitrogen 19 Creatinine 1.50 H Est Glomerular 49 L Filtrat Rate mL/min Glucose Level 120 Calcium Level 8.6 Vancomycin Level 15.8 Trough Bedside Glucose 130 128 Subjective 24 Hr Interval Summary Cardiovascular: no complaints Genitourinary: no complaints Musculoskeletal: other (do not feel his feet) Exam/Review of Systems Exam Vitals Vital Signs Date Temp Pulse Resp B/P (MAP) Pulse Ox O2 O2 Flow FiO2 Time Delivery Rate 07/24/18 98.8 72 16 142/74 96 Room Air 12:18 (96) 07/23/18 4.0 12:34 Intake and Output 07/23/18 07/23/18 07/24/18 1515:00 23:00 07:00 IntakeIntake Total 1000 ml 1235 ml 1155.16 ml OutputOutput Total 602 ml BalanceBalance 398 ml 1235 ml 1155.16 ml Neck: supple Respiratory: clear to auscultation, normal air movement Cardiovascular: regular rate and rhythm Gastrointestinal: soft Musculoskeletal: other (both feet with surgical dressing, fowl smell from right foot, left foot clean wound) Results Result Diagram: 07/22/18 0710 07/24/18 05 Results 24hrs Laboratory Tests Test 07/23/18 14:40 07/23/18 17:59 07/23/18 20:30 07/24/18 01:54 Bedside Glucose 148 161 208 130 Test 07/24/18 05:19 07/24/18 08:12 07/24/18 12:21 Sodium Level 140 Potassium Level 4.1 Chloride Level 105 Carbon Dioxide Level 26 Anion Gap 9 Blood Urea Nitrogen 19 Creatinine 1.50 H Est Glomerular 49 L Filtrat Rate mL/min Glucose Level 120 Calcium Level 8.6 Vancomycin Level 15.8 Trough Bedside Glucose 130 128 Medications Medication Current Medications Acetaminophen/ Hydrocodone Bitart ([place] (5/325)) 1 tab Q4H PRN PO MODERATE PAIN LEVEL 4-6; Start 07/04/18 at 01:30 Pantoprazole (Protonix Tab) 40 mg DAILY@06 PO Last administered on 07/24/18 06:50; Admin Dose 40 MG; Start 07/04/18 at 06:00 Acetaminophen (Tylenol Tab) 650 mg Q6H PRN PO MILD PAIN(1-3)OR ELEVATED TEMP Last administered on 07/17/18 08:46; Admin Dose 650 MG; Start 07/04/18 at 01:30 Clonidine (Catapres) 0.1 mg Q6H PRN PO ELEVATED BLOOD PRESSURE Last administered on 07/04/18 01:47; Admin Dose 0.1 MG; Start 07/04/18 at 01:30 Miscellaneous Information 1 ea NOTE XX ; Start 07/04/18 at 02:00 Glucose (Glutose) 15 gm Q15M PRN PO DECREASED GLUCOSE; Start 07/04/18 at 02:00 Glucose (Glutose) 22.5 gm Q15M PRN PO DECREASED GLUCOSE; Start 07/04/18 at 02:00 Dextrose (D50w Syringe) 25 ml Q15M PRN IV DECREASED GLUCOSE; Start 07/04/18 at 02:00 Dextrose (D50w Syringe) 50 ml Q15M PRN IV DECREASED GLUCOSE; Start 07/04/18 at 02:00 Glucagon (Glucagen) 1 mg Q15M PRN IM DECREASED GLUCOSE; Start 07/04/18 at 02:00 Glucose (Glutose) 15 gm Q15M PRN BUCCAL DECREASED GLUCOSE; Start 07/04/18 at 02:00 Bisacodyl (Dulcolax) 10 mg BID PRN PO CONSTIPATION Last administered on 07/24/18 08:15; Admin Dose 10 MG; Start 07/04/18 at 01:30 Miscellaneous Information (Pending [facility] Order For Wound Care) This patient mora... PRN PRN XX WOUND CARE; Start 07/04/18 at 02:00 Pentoxifylline (Trental) 400 mg TID PO Last administered on 07/24/18 12:19; Admin Dose 400 MG; Start 07/04/18 at 21:00 Linagliptin (Tradjenta) 5 mg DAILY PO Last administered on 07/24/18 08:16; Admin Dose 5 MG; Start 07/04/18 at 14:00 Amlodipine Besylate (Norvasc) 5 mg BID PO Last administered on 07/24/18 08:20; Admin Dose 5 MG; Start 07/07/18 at 15:00 Enoxaparin Sodium (Lovenox) 30 mg DAILY SC Last administered on 07/24/18 09:26; Admin Dose 30 MG; Start 07/09/18 at 09:00 Ferrous Sulfate (Ferrous Sulfate (Ec)) 325 mg DAILY PO Last administered on 07/24/18 08:17; Admin Dose 325 MG; Start 07/11/18 at 10:00 Zinc Sulfate (Zinc Sulfate) 220 mg DAILY PO Last administered on 07/24/18 08:16; Admin Dose 220 MG; Start 07/18/18 at 09:00 Clonidine (Catapres) 0.2 mg TID PO Last administered on 07/24/18 12:20; Admin Dose 0.2 MG; Start 07/17/18 at 13:00 Collagenase (Santyl) 1 applic DAILY TOP Last administered on 07/24/18 11:14; Admin Dose 1 APPLIC; Start 07/17/18 at 17:30 Mineral Oil (Mineral Oil) 30 ml DAILY PO Last administered on 07/24/18 08:13; Admin Dose 30 ML; Start 07/18/18 at 14:30 Insulin Glargine (Lantus) 10 units DAILY@2000 SC Last administered on 07/23/18 20:43; Admin Dose 10 UNITS; Start 07/21/18 at 20:00 Insulin Aspart (Novolog Insulin Pen) 3 unit WITH MEALS SC Last administered on 07/24/18 12:24; Admin Dose 3 UNIT; Start 07/21/18 at 18:00 Acetylcysteine (Nac) 1,200 mg BID PO Last administered on 07/24/18 08:15; Admin Dose 1,200 MG; Start 07/22/18 at 12:30 Vancomycin HCl (Vanco Iv Per Pharmacy) VANCOMYCIN PER PHARMACY PER PROTOCOL XX ; Start 07/22/18 at 16:00 Vancomycin/Sodium Chloride 250 ml @ 125 mls/hr Q12H IVPB Last administered on 07/24/18 06:50; Admin Dose 125 MLS/HR; Start 07/23/18 at 06:00 Sodium Chloride 1,000 ml @ 70 mls/hr [id number] IV Last administered on 07/24/18 03:13; Admin Dose 70 MLS/HR; Start 07/23/18 at 16:00 Cefepime HCl 50 ml @ 100 mls/hr Q12 IVPB Last administered on 07/24/18at 09:25; Admin Dose 100 MLS/HR; Start 07/23/18 at 21:00 Diagnostic Test (Pha) (Accu-Chek) 1 ea 02 XX ; Start 07/24/18 at 02:00 Insulin Aspart (Novolog Insulin Pen) NOVOLOG *MODERATE* ALGORITHM WITH MEALS BEDTIME SC Last administered on 07/23/18at 20:42; Admin Dose 1 UNIT; Start 07/23/18 at 21:00 GINA SUTTON MD 07/24/18 1534: Assessment/Plan Assessment/Plan Assessment/Plan seen adn examined with [employer] SUPERVISOR pt will need amputation per Dr betancur not planned currently per him dc home with iv abx Result Diagram: 07/22/18 0710 07/24/18 0519 TEODORO RIDER Jul 24, 2018 13:39 GINA SUTTON MD Jul 24, 2018 15:34
[2018-07-24] MEDS ORDERED: MINERAL OIL 133 ML ENEMA PR ONE (16:00)
--- NOTE | 2018-07-24 19:53 | PN ---
Date/Time of Note Date/Time of Note DATE: 07/24/18 TIME: 19:49 Assessment/Plan Lines/Catheters IV Catheter Type (from Nrs): Peripheral IV Gibson in Place (from Nrs): No Assessment/Plan Problems: (1) Ischemia of right lower extremity Comment: At this time, I would like patient to continue and demarcate the gangrenous changes. He might be able to get away with a transmetatarsal amputation although it may need to be an open TMA followed by skin grafting at a later time. If this fails, patient will benefit from below-knee amputation. If his foot gets infected, a below-knee amputation would be more appropriate. Continue IV antibiotics and continue to monitor patient. He may be discharged home and followed up in the clinic. (2) Acquired absence of other left toe(s) (3) Gangrene of right foot Status: Acute (4) Peripheral vascular disease (5) Postop check Comment: Left foot is healing well and sutures are intact with no wound dehiscence. (6) Diabetes, polyneuropathy Subjective 24 Hr Interval Summary Patient was seen and examined at bedside. Patient is status post lower extremity angiography on bilateral lower extremity with repeat angiography of the right lower leg. Apparently it was determined that the blood flow stops somewhere around the ankle joint and then there is no blood flow to the foot. There is a concern about gangrenous changes that are happening on the right foot. Patient reports no pain in both feet. He denies fever and chills and reports no other issues. Constitutional: no complaints Pain Control: well controlled Exam/Review of Systems Vital Signs Vitals Vital Signs Date Temp Pulse Resp B/P (MAP) Pulse Ox O2 O2 Flow FiO2 Time Delivery Rate 07/24/18 98.8 72 16 142/74 96 Room Air 12:18 (96) 07/23/18 4.0 12:34 Intake and Output 07/23/18 07/23/18 07/24/18 1515:00 23:00 07:00 IntakeIntake Total 1000 ml 1235 ml 1155.16 ml OutputOutput Total 602 ml BalanceBalance 398 ml 1235 ml 1155.16 ml Exam Free Text/Dictation Patient is in no acute distress laying supine in bed. Bandages were present on both feet. Both were removed for examination. Right foot: Gangrenous changes noted to the second, third and fourth toes and to the plantar metatarsophalangeal joints. There is no full demarcation of gangrene as of yet. There is mild malodor present. There is no pus and no act juancarlos drainage of any kind. There is discoloration of skin going from the toes and ending up somewhere in the distal foot. Dorsalis pedis and posterior tibial pulse is not palpable on the right lower extremity. Temperature gradient is increased. Left foot: Status post amputation of third toe during this hospitalization and status post previous temptation of the fourth and fifth toes and a previous hospitalization. Open wound present on the lateral foot, dry and improved. Dorsalis pedis and posterior tibial pulses 1+. The second toe seems to be viable although with significant dry skin. The hallux also is viable. Labs reviewed. Imaging reviewed. Results Result Diagram: 07/22/18 0710 07/24/18 0519 JOSE A HIGUERA DPM Jul 24, 2018 19:53
[2018-07-24 20:11] VITALS: BP 146/81; PULSE 76; RESP 18
[2018-07-24] MEDS: INSULIN GLARGINE [LANTus] (100 UNITS/ML) SYG SC SCH (21:50)
[2018-07-25 02:07] VITALS: BP 138/75; PULSE 75; RESP 18
[2018-07-25] MEDS: ACCU-CHEK XX SCH (02:21)
[2018-07-25] MEDS: PANTOPRAZOLE (EC) 40 MG TAB PO SCH (05:31)
[2018-07-25] MEDS: VANCOMYCIN 750 MG (PMX) 250 ML IVPB SCH (05:32)
[2018-07-25 08:00] VITALS: BP 143/77; PULSE 75; RESP 18
[2018-07-25] MEDS: INSULIN ASPART [NOVOLOG] 3 ML PEN SC SCH ×6 (08:00→17:05)
[2018-07-25] MEDS: FERROUS SULFATE (EC) 325 MG TAB PO SCH (08:20)
[2018-07-25] MEDS: LINAGLIPTIN 5 MG TABLET PO SCH (08:21)
[2018-07-25] MEDS: AMLODIPINE 5 MG TAB PO SCH (08:23)
[2018-07-25] MEDS: PENTOXIFYLLINE (SR) 400 MG TAB PO SCH ×2 (08:23→13:34)
[2018-07-25] MEDS: ZINC SULFATE 220 MG CAP PO SCH (08:23)
[2018-07-25] MEDS: ENOXAPARIN 30 MG/0.3 ML SYG SC SCH (08:26)
[2018-07-25] MEDS: MINERAL OIL 30ML CUP PO SCH (08:32)
[2018-07-25] MEDS: CEFEPIME 1GM/50 ML (PMX) 50 ML IVPB SCH (08:33)
[2018-07-25] MEDS: BISACODYL (EC) 5 MG TAB PO PRN ×2 (08:56→17:18)
[2018-07-25] MEDS ORDERED: COLLAGENASE 5 GM (UD JAR) TOP SCH (09:00)
[2018-07-25] MEDS ORDERED: SODIUM HYPOCHLORITE (1/40) 1 APPLIC BTL IRR SCH (09:00)
--- NOTE | 2018-07-25 10:03 | PN ---
Date/Time of Note Date/Time of Note DATE: 07/25/18 TIME: 10:01 Assessment/Plan VTE Prophylaxis Risk score (from Nsg)>0 risk: 6 SCD applied (from Ns): No SCD contraindicated: other Pharmacological prophylaxis: LMWH Lines/Catheters IV Catheter Type (from Nrs): Peripheral IV Urinary Cath still in place: No Assessment/Plan Hospital Course 1. Left foot cellulitis. Discoloration of 2 and 3 toes. S/p amputation of the left fourth digit and transmetatarsal amputation of the fifth digit. 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 On Xray soft tissue swelling. Vascular calcification consistent with atherosclerotic disease. Healing fracture at the base of the second metatarsal. S/p amputation of the left third toe with excisional debridement right foot necrotic open wound measuring 5 x 3 cm to the level of subcutaneous tissue by dr Betancur 07/16/2018 2. Anemia 3. Overweight 4. DANIELLE, creatinine 1.5 today from 1.97 on hospitalization. Pt creatinine was 1.73 in [facility] February 2018 and then return to normal 5. DM type II with diabetic neuropathy 6. Hypertension 7. Right foot sole wound, s/p debridement 8. Peripheral vascular disease. On Duplex US 09/2017 Monophasic wave forms in bilateral posterior tibial arteries and dorsalis pedis arteries consistent with a significant bilateral infrapopliteal stenosis. S/p abdominal aortogram and third order degree angiogram left lower extremity by dr De La Rosa 07/13/2018 Assessment/Plan -spoke to pt in his Language about necessity of amputation right foot and might be upper -invite family to answer questions -home health working on -PICC line -home health preparation with 6 weeks IV - c/w gentle iv fluids -cw with the vancomycin/ cefepime - cw lantus and mealtime insulin -Continue with pentoxifylline -cw clonidine and Norvasc for blood pressure - hold nephrotoxic agents -strict I's and O' - GI prophylaxis Result Diagram: 07/22/18 0710 07/24/18 0519 Results 24hrs Laboratory Tests Test 07/24/18 12:21 07/24/18 17:23 07/24/18 21:42 07/25/18 02:16 Bedside Glucose 128 132 181 158 Test 07/25/18 08:19 07/25/18 09:53 Bedside Glucose 132 124 Subjective 24 Hr Interval Summary Gastrointestinal: no complaints Skin: skin lesions (both feet) Exam/Review of Systems Exam Vitals Vital Signs Date Temp Pulse Resp B/P (MAP) Pulse Ox O2 O2 Flow FiO2 Time Delivery Rate 07/25/18 98.7 75 18 143/77 98 08:00 (99) 07/24/18 Room Air 12:18 07/23/18 4.0 12:34 Intake and Output 07/24/18 07/24/18 07/25/18 1515:00 23:00 07:00 IntakeIntake Total 1060 ml 2724.84 ml 400 ml OutputOutput Total 950 ml 1300 ml BalanceBalance 110 ml 1424.84 ml 400 ml Constitutional: alert, oriented Psych: no complaints Eyes: nl conjunctiva Respiratory: clear to auscultation Cardiovascular: regular rate and rhythm Gastrointestinal: soft Genitourinary - Male: CVA tenderness; No nl penis, No nl scrotum, No discharge, No other Musculoskeletal: other (bilateral wounds on both feet) Results Results 24hrs Laboratory Tests Test 07/24/18 12:21 07/24/18 17:23 07/24/18 21:42 07/25/18 02:16 Bedside Glucose 128 132 181 158 Test 07/25/18 08:19 07/25/18 09:53 Bedside Glucose 132 124 Medications Medication Current Medications Acetaminophen/ Hydrocodone Bitart ([place] (5/325)) 1 tab Q4H PRN PO MODERATE PAIN LEVEL 4-6; Start 07/04/18 at 01:30 Pantoprazole (Protonix Tab) 40 mg DAILY@06 PO Last administered on 07/25/18at 05:31; Admin Dose 40 MG; Start 07/04/18 at 06:00 Acetaminophen (Tylenol Tab) 650 mg Q6H PRN PO MILD PAIN(1-3)OR ELEVATED TEMP Last administered on 07/17/18at 08:46; Admin Dose 650 MG; Start 07/04/18 at 01:30 Clonidine (Catapres) 0.1 mg Q6H PRN PO ELEVATED BLOOD PRESSURE Last administered on 07/04/18at 01:47; Admin Dose 0.1 MG; Start 07/04/18 at 01:30 Miscellaneous Information 1 ea NOTE XX ; Start 07/04/18 at 02:00 Glucose (Glutose) 15 gm Q15M PRN PO DECREASED GLUCOSE; Start 07/04/18 at 02:00 Glucose (Glutose) 22.5 gm Q15M PRN PO DECREASED GLUCOSE; Start 07/04/18 at 02:00 Dextrose (D50w Syringe) 25 ml Q15M PRN IV DECREASED GLUCOSE; Start 07/04/18 at 02:00 Dextrose (D50w Syringe) 50 ml Q15M PRN IV DECREASED GLUCOSE; Start 07/04/18 at 02:00 Glucagon (Glucagen) 1 mg Q15M PRN IM DECREASED GLUCOSE; Start 07/04/18 at 02:00 Glucose (Glutose) 15 gm Q15M PRN BUCCAL DECREASED GLUCOSE; Start 07/04/18 at 02:00 Bisacodyl (Dulcolax) 10 mg BID PRN PO CONSTIPATION Last administered on 07/25/18 08:56; Admin Dose 10 MG; Start 07/04/18 at 01:30 Miscellaneous Information (Pending Santyl Order For Wound Care) This patient mora... PRN PRN XX WOUND CARE; Start 07/04/18 at 02:00 Pentoxifylline (Trental) 400 mg TID PO Last administered on 07/25/18 08:23; Admin Dose 400 MG; Start 07/04/18 at 21:00 Linagliptin (Tradjenta) 5 mg DAILY PO Last administered on 07/25/18 08:21; Admin Dose 5 MG; Start 07/04/18 at 14:00 Amlodipine Besylate (Norvasc) 5 mg BID PO Last administered on 07/25/18 08:23; Admin Dose 5 MG; Start 07/07/18 at 15:00 Enoxaparin Sodium (Lovenox) 30 mg DAILY SC Last administered on 07/25/18 08:26; Admin Dose 30 MG; Start 07/09/18 at 09:00 Ferrous Sulfate (Ferrous Sulfate (Ec)) 325 mg DAILY PO Last administered on 06/28 08:20; Admin Dose 325 MG; Start 07/11/18 at 10:00 Zinc Sulfate (Zinc Sulfate) 220 mg DAILY PO Last administered on 07/25/18 08:23; Admin Dose 220 MG; Start 07/18/18 at 09:00 Clonidine (Catapres) 0.2 mg TID PO Last administered on 07/25/18 08:23; Admin Dose 0.2 MG; Start 07/17/18 at 13:00 Mineral Oil (Mineral Oil) 30 ml DAILY PO Last administered on 07/24/18 08:13; Admin Dose 30 ML; Start 07/18/18 at 14:30 Insulin Glargine (Lantus) 10 units DAILY@2000 SC Last administered on 07/24/18 21:50; Admin Dose 10 UNITS; Start 07/21/18 at 20:00 Insulin Aspart (Novolog Insulin Pen) 3 unit WITH MEALS SC Last administered on 07/25/18 09:56; Admin Dose 3 UNIT; Start 07/21/18 at 18:00 Vancomycin HCl (Vanco Iv Per Pharmacy) VANCOMYCIN PER PHARMACY PER PROTOCOL XX ; Start 07/22/18 at 16:00 Vancomycin/Sodium Chloride 250 ml @ 125 mls/hr Q12H IVPB Last administered on 07/25/18 05:32; Admin Dose 125 MLS/HR; Start 07/23/18 at 06:00 Sodium Chloride 1,000 ml @ 70 mls/hr [id number] IV Last administered on 07/24/18 17:31; Admin Dose 70 MLS/HR; Start 07/23/18 at 16:00 Cefepime HCl 50 ml @ 100 mls/hr Q12 IVPB Last administered on 07/25/18 08:33; Admin Dose 100 MLS/HR; Start 07/23/18 at 21:00 Diagnostic Test (Pha) (Accu-Chek) 1 ea 02 XX Last administered on 07/25/18 02:21; Admin Dose 1 EA; Start 07/24/18 at 02:00 Insulin Aspart (Novolog Insulin Pen) NOVOLOG *MODERATE* ALGORITHM WITH MEALS BEDTIME SC Last administered on 07/24/18 21:51; Admin Dose 1 UNIT; Start 07/23/18 at 21:00 Collagenase (Santyl) 2 applic DAILY TOP Last administered on 07/25/18 08:28; Admin Dose 2 APPLIC; Start 07/25/18 at 09:00 Sodium Hypochlorite (Dakin'S (Dilute 40)) 1 applic DAILY IRR Last admi nistered on 07/25/18 08:28; Admin Dose 1 APPLIC; Start 07/25/18 at 09:00 TEODORO RIDER Jul 25, 2018 10:03
[2018-07-25] MEDS: SOD CHLORIDE 0.9% 1,000 ML IV SCH (10:54)
--- NOTE | 2018-07-25 13:19 | CONS ---
Assessment/Plan Assessment/Plan Hospital Course (Demo Recall) ID PROGRESS NOTE CURRENT ABX: DAY # Vanco IV + Cefepime 07/22/18 0710 07/24/18 0519 24H INTERVAL SUMMARY * Napping, opens eyes, no c/o, VSS, NAD, no fevers, chart reviewed MICRO/OTHER * 07/04/18 wound cx: WOUND CULTURE Final Organism 1 STAPHYLOCOCCUS AUREUS QUANTITY 2+ S AUREUS M.I.C. RX --------- --- CEFAZOLIN S CIPROFLOXACIN <=0.5 S CLINDAMYCIN <=0.25 S DOXYCYCLINE S ERYTHROMYCIN <=0.25 S LEVOFLOXACIN 0.25 S OXACILLIN 0.5 S PENICILLIN-G >=0.5 R RIFAMPIN <=0.5 S VANCOMYCIN <=0.5 S TRIMETHOPRIM/SULFAMETHOXAZOLE <=10 S PHYSICAL EXAMINATION: GENERAL: VSS HEENT: AT, NC, anicteric NECK: Supple, CHEST: Equal chest rise bilaterally, without dyspnea on observation HEART: Pulse RRR ABDOMEN: Soft / NT EXTREMITIES: Warm, dry / LEFT FOOT DSG C/D/I RIGHT FOOT GANGRENOUS CHANGES NOTES SKIN: No rash, no diaphoresis ID ASSESSMENT 52 yo M admit with: 1. Left foot HÉCTOR cellulitis/osteomyelitis ==>s/p amputation of the left third toe and debridement 07/16/18, poss ongoing infection 2. Ischemic Right foot gangrenous changes 3. Diabetes w/Diabetic neuropathy 4. Hypertension 5. Peripheral vascular disease, status post angiogram 07/23/18 6. Anemia ABX ALLERGIES: None to ABX INVASIVES: PIV CURRENT ABX: DAY # Vanco IV + Cefepime ID RECOMMENDATIONS/PLAN: 1. Continue current ABX 2. DC PLANNING -- anticipate DC home on current IV ABX to complete minimum of 6 weeks . Consultation Date/Type/Reason Admit Date/Time Jul 03, 2018 at 22:10 Initial Consult Date 07/04/18 Date/Time of Note DATE: 07/25/18 TIME: 13:18 Exam/Review of Systems Exam Vitals Vital Signs Date Temp Pulse Resp B/P (MAP) Pulse Ox O2 O2 Flow FiO2 Time Delivery Rate 07/25/18 98.7 75 18 143/77 98 08:00 (99) 07/24/18 Room Air 12:18 07/23/18 4.0 12:34 Intake and Output 07/24/18 07/24/18 07/25/18 1515:00 23:00 07:00 IntakeIntake Total 1060 ml 2724.84 ml 400 ml OutputOutput Total 950 ml 1300 ml BalanceBalance 110 ml 1424.84 ml 400 ml Results Result Diagram: 07/22/18 0710 07/24/18 0519 Results 24hrs Laboratory Tests Test 07/24/18 17:23 07/24/18 21:42 07/25/18 02:16 07/25/18 08:19 Bedside Glucose 132 181 158 132 Test 07/25/18 09:53 Bedside Glucose 124 Medications Medication Current Medications Acetaminophen/ Hydrocodone Bitart ([place] (5/325)) 1 tab Q4H PRN PO MODERATE PAIN LEVEL 4-6; Start 07/04/18 at 01:30 Pantoprazole (Protonix Tab) 40 mg DAILY@06 PO Last administered on 07/25/18at 05:31; Admin Dose 40 MG; Start 07/04/18 at 06:00 Acetaminophen (Tylenol Tab) 650 mg Q6H PRN PO MILD PAIN(1-3)OR ELEVATED TEMP Last administered on 07/17/18at 08:46; Admin Dose 650 MG; Start 07/04/18 at 01:30 Clonidine (Catapres) 0.1 mg Q6H PRN PO ELEVATED BLOOD PRESSURE Last administered on 07/04/18at 01:47; Admin Dose 0.1 MG; Start 07/04/18 at 01:30 Miscellaneous Information 1 ea NOTE XX ; Start 07/04/18 at 02:00 Glucose (Glutose) 15 gm Q15M PRN PO DECREASED GLUCOSE; Start 07/04/18 at 02:00 Glucose (Glutose) 22.5 gm Q15M PRN PO DECREASED GLUCOSE; Start 07/04/18 at 02:00 Dextrose (D50w Syringe) 25 ml Q15M PRN IV DECREASED GLUCOSE; Start 07/04/18 at 02:00 Dextrose (D50w Syringe) 50 ml Q15M PRN IV DECREASED GLUCOSE; Start 07/04/18 at 02:00 Glucagon (Glucagen) 1 mg Q15M PRN IM DECREASED GLUCOSE; Start 07/04/18 at 02:00 Glucose (Glutose) 15 gm Q15M PRN BUCCAL DECREASED GLUCOSE; Start 07/04/18 at 02:00 Bisacodyl (Dulcolax) 10 mg BID PRN PO CONSTIPATION Last administered on 07/25/18 08:56; Admin Dose 10 MG; Start 07/04/18 at 01:30 Miscellaneous Information (Pending Santyl Order For Wound Care) This patient mora... PRN PRN XX WOUND CARE; Start 07/04/18 at 02:00 Pentoxifylline (Trental) 400 mg TID PO Last administered on 07/25/18 08:23; Admin Dose 400 MG; Start 07/04/18 at 21:00 Linagliptin (Tradjenta) 5 mg DAILY PO Last administered on 07/25/18 08:21; Admin Dose 5 MG; Start 07/04/18 at 14:00 Amlodipine Besylate (Norvasc) 5 mg BID PO Last administered on 07/25/18 08:23; Admin Dose 5 MG; Start 07/07/18 at 15:00 Enoxaparin Sodium (Lovenox) 30 mg DAILY SC Last administered on 07/25/18 08:26; Admin Dose 30 MG; Start 07/09/18 at 09:00 Ferrous Sulfate (Ferrous Sulfate (Ec)) 325 mg DAILY PO Last administered on 07/25/18 08:20; Admin Dose 325 MG; Start 07/11/18 at 10:00 Zinc Sulfate (Zinc Sulfate) 220 mg DAILY PO Last administered on 07/25/18 08:23; Admin Dose 220 MG; Start 07/18/18 at 09:00 Clonidine (Catapres) 0.2 mg TID PO Last administered on 07/25/18 08:23; Admin Dose 0.2 MG; Start 07/17/18 at 13:00 Mineral Oil (Mineral Oil) 30 ml DAILY PO Last administered on 07/24/18 08:13; Admin Dose 30 ML; Start 07/18/18 at 14:30 Insulin Glargine (Lantus) 10 units DAILY@2000 SC Last administered on 07/24/18 21:50; Admin Dose 10 UNITS; Start 07/21/18 at 20:00 Insulin Aspart (Novolog Insulin Pen) 3 unit WITH MEALS SC Last administered on 07/25/18 09:56; Admin Dose 3 UNIT; Start 07/21/18 at 18:00 Vancomycin HCl (Vanco Iv Per Pharmacy) VANCOMYCIN PER PHARMACY PER PROTOCOL XX ; Start 07/22/18 at 16:00 Vancomycin/Sodium Chloride 250 ml @ 125 mls/hr Q12H IVPB Last administered on 07/25/18 05:32; Admin Dose 125 MLS/HR; Start 07/23/18 at 06:00 Sodium Chloride 1,000 ml @ 70 mls/hr [id number] IV Last administered on 07/24/18 17:31; Admin Dose 70 MLS/HR; Start 07/23/18 at 16:00 Cefepime HCl 50 ml @ 100 mls/hr Q12 IVPB Last administered on 07/25/18 08:33; Admin Dose 100 MLS/HR; Start 07/23/18 at 21:00 Diagnostic Test (Pha) (Accu-Chek) 1 ea 02 XX Last administered on 07/25/18 02:21; Admin Dose 1 EA; Start 07/24/18 at 02:00 Insulin Aspart (Novolog Insulin Pen) NOVOLOG *MODERATE* ALGORITHM WITH MEALS BEDTIME SC Last administered on 07/24/18 21:51; Admin Dose 1 UNIT; Start 07/23/18 at 21:00 Collagenase (Santyl) 2 applic DAILY TOP Last administered on 07/25/18 08:28; Admin Dose 2 APPLIC; Start 07/25/18 at 09:00 Sodium Hypochlorite (Dakin'S (Dilute 1/40)) 1 applic DAILY IRR Last administer ed on 07/25/18 08:28; Admin Dose 1 APPLIC; Start 07/25/18 at 09:00 MAIA CURRY NP Jul 25, 2018 13:19
[2018-07-25 14:00] VITALS: BP 143/78; PULSE 81; RESP 18
== END 2018-07-25 18:55 | disposition home health service (06) | DRG 256 ==
LOC: E/R 15:40 → 5EC 22:10 → PP2 07-08 22:06 → TEL 07-13 17:05 → 5EC 07-15 18:24
PROVIDERS: ADMIT Internal Medicine Nephrology; ATTEND Internal Medicine Nephrology
PROC: B41DYZZ Fluoroscopy of Aorta and Bilateral Lower Extremity Arteries using Other Contrast (ICD-10-PCS; 2018-07-13)
PROC: 0JBQ0ZZ Excision of Right Foot Subcutaneous Tissue and Fascia, Open Approach (ICD-10-PCS; 2018-07-16)
PROC: 0Y6U0Z0 Detachment at Left 3rd Toe, Complete, Open Approach (ICD-10-PCS; principal; 2018-07-16 19:30)
PROC: B41FYZZ Fluoroscopy of Right Lower Extremity Arteries using Other Contrast (ICD-10-PCS; 2018-07-23)
PROC: 02H633Z Insertion of Infusion Device into Right Atrium, Percutaneous Approach (ICD-10-PCS; 2018-07-25)
DX: E11.52 Type 2 diabetes mellitus with diabetic peripheral angiopathy with gangrene (principal); L03.116 Cellulitis of left lower limb; N17.9 Acute kidney failure, unspecified; I70.92 Chronic total occlusion of artery of the extremities; M86.172 Other acute osteomyelitis, left ankle and foot; E11.40 Type 2 diabetes mellitus with diabetic neuropathy, unspecified; E11.621 Type 2 diabetes mellitus with foot ulcer; E11.22 Type 2 diabetes mellitus with diabetic chronic kidney disease; I12.9 Hypertensive chronic kidney disease with stage 1 through stage 4 chronic kidney disease, or unspecified chronic kidney disease; E66.3 Overweight; N18.9 Chronic kidney disease, unspecified; L97.529 Non-pressure chronic ulcer of other part of left foot with unspecified severity; I70.201 Unspecified atherosclerosis of native arteries of extremities, right leg; E11.69 Type 2 diabetes mellitus with other specified complication; L97.519 Non-pressure chronic ulcer of other part of right foot with unspecified severity; D63.1 Anemia in chronic kidney disease; B95.61 Methicillin susceptible Staphylococcus aureus infection as the cause of diseases classified elsewhere; Z68.28 Body mass index [BMI] 28.0-28.9, adult; Z89.422 Acquired absence of other left toe(s)
CPT/HCPCS: 36246; 36415; 36430; 36569; 71045; 73590; 73630; 73718; 75630; 76937; 80048; 80053; 80202; 80307; 81001; 82140; 82962; 83036; 83540; 83690; 83735; 84100; 85025; 85610; 85730; 86140; 86850; 86900; 86901; 86920; 87040; 87070; 88305; 88311; 96374; 96375; 97162; C1725; C1887; C1894; J0360; J0690; J0692; J0696; J1644; J1650; J1815; J1885; J1940; J2250; J2543; J2765; J2916; J3010; J3370; J7030; J7040; J7042; J7050; J7070; P9016; Q9967

== ENCOUNTER 2018-08-23 19:41 | Inpatient (IN) | payer OTHER ==
[~2018-08-23] VITALS: Ht 162.6 cm; Wt 67.9 kg
[~2018-08-23 19:41] MED LIST changes: +AMLO-145 PO; +CIPR500T4 PO; +CLON0.2T12 PO; +FER325 PO; +NOVO3I SC; -OXYC-438 PO; +PENT400T9 PO
[2018-08-23] MEDS ORDERED: PIPER-TAZO 3.375 GM IV (PMX) 100 ML IVPB STA (20:02)
[2018-08-23] MEDS ORDERED: VANCOMYCIN 1 GM (PMX) 250 ML IVPB STA (20:02)
[2018-08-23] MEDS ORDERED: SODIUM CHLORIDE 0.9% 1L BAG IV* STA (20:26)
[2018-08-23] MEDS ORDERED: ACETAMINOPHEN 325 MG TAB PO ONE (20:30)
[2018-08-23] MEDS ORDERED: CLINDAMYCIN 900 MG/D5W (PMX) 50 ML IVPB SCH (21:00)
[2018-08-23] MEDS ORDERED: ONDANSETRON 4 MG INJ IV PRN (21:30)
[2018-08-23] MEDS ORDERED: ACETAMINOPHEN 325 MG TAB PO PRN (21:30)
--- NOTE | 2018-08-23 22:27 | ERD ---
ER Documentation Chief Complaint Chief Complaint right foot wound HPI Patient is a 52-year-old male with diabetes and hypertension who presents with a foul-smelling wound to the right foot. The patient has fevers as well. The symptoms started yesterday. He said that he is taking antibiotics. He has a PICC line in his right upper extremity. Upon review of old medical records the patient has multiple visits to the ER with admissions. He does not remember the name of his primary doctor but his business education instructor is Dr. Betancur. ROS All systems reviewed and are negative except as per history of present illness. Medications Home Meds Active Scripts Insulin Aspart* (Novolog Insulin Pen*) 100 Unit/Ml Soln, 0 UNIT SC AC MEALS AND BEDTIME for 30 Days Prov:TEODORO RIDER 07/19/18 Clonidine Hcl* (Catapres*) 0.2 Mg Tablet, 0.2 MG PO TID for 30 Days, TAB Prov:TEODORO RIDER 07/19/18 Amlodipine Besylate* (Amlodipine Besylate*) 5 Mg Tablet, 10 MG PO DAILY for 30 Days, TAB Prov:TEODORO RIDER 07/19/18 Pentoxifylline* (Pentoxifylline*) 400 Mg Tablet.sa, 400 MG PO TID for 30 Days Prov:TEODORO RIDER 07/19/18 Ferrous Sulfate* (Ferrous Sulfate*) 325 Mg Tabec, 325 MG PO DAILY for 30 Days, TAB Prov:TEODORO RIDER 07/19/18 Ciprofloxacin Hcl* (Ciprofloxacin Hcl*) 500 Mg Tablet, 500 MG PO BID@,18 for 42 Days, TAB Prov:TEODORO RIDER 07/19/18 Linagliptin (TRADJENTA) 5 Mg Tablet, 5 MG PO DAILY for 30 Days, TAB Prov:GINA SUTTON MD 03/18/18 Allergies Allergies: Coded Allergies: No Known Allergy (Unverified , 07/04/18) PMhx/Soc History of Surgery: Yes (L foot toe amputations) Anesthesia Reaction: No Hx Neurological Disorder: No Hx Respiratory Disorders: No Hx Cardiac Disorders: No Hx Psychiatric Problems: No Hx Miscellaneous Medical Probl: Yes (DM) Hx Alcohol Use: Yes (per patient, last one was 2016) Hx Substance Use: No Hx Tobacco Use: No Smoking Status: Never smoker FmHx Family History: diabetes Physical Exam Vitals Vital Signs Date Temp Pulse Resp B/P (MAP) Pulse Ox O2 O2 Flow FiO2 Time Delivery Rate 08/23/18 116 21:49 08/23/18 99.8 128 20 147/87 100 Room Air 21:00 (107) 08/23/18 102.2 20:26 08/23/18 102.2 119 24 110/68 97 20:03 (82) Physical Exam Const: Mild distress Head: Atraumatic Eyes: Normal Conjunctiva ENT: Normal External Ears, Nose and Mouth. Neck: Full range of motion. No meningismus. Resp: Clear to auscultation bilaterally Cardio: Regular rate and rhythm, no murmurs Abd: Soft, non tender, non distended. Normal bowel sounds Skin: Necrotic and gangrenous skin to the right foot from approximately mid foot to the tips of the toes which is leaking and foul-smelling Back: No midline or flank tenderness Ext: Swelling to the right foot with gas gangrene Neur: Awake and alert Psych: Normal Mood and Affect Result Diagram: 08/23/18201108/23/18 2012 Results 24 hrs Laboratory Tests Test 08/23/18 20:12 08/23/18 20:18 08/23/18 20:19 08/23/18 22:07 White Blood Count 28.0 10^3/ul Red Blood Count 2.44 10^6/ul Hemoglobin 7.3 g/dl Hematocrit 21.6 % Mean Corpuscular 88.5 fl Volume Mean Corpuscular 29.9 pg Hemoglobin Mean Corpuscular 33.8 g/dl Hemoglobin Concent Red Cell 12.2 % Distribution Width Platelet Count 345 10^3/UL Mean Platelet 9.1 fl Volume Immature 4.100 % Granulocytes % Neutrophils % % Segmented 90 % Neutrophils % (Manual) Band Neutrophils % 6 % (Manual) Lymphocytes % % Lymphocytes % 2 % (Manual) Monocytes % % Monocytes % 2 % (Manual) Eosinophils % % Basophils % % Nucleated Red Blood 0.0 /100WBC Cells % Immature 1.140 10^3/ul Granulocytes # Neutrophils # 10^3/ul Neutrophils # 25.6 10^3/ul (Manual) Band Neutrophils # 1.6 10^3/ul Lymphocytes 0.5 10^3/ul (Manual) Lymphocytes # 10^3/ul Monocytes # 10^3/ul Monocytes # 0.5 10^3/ul (Manual) Eosinophils # 10^3/ul Basophils # 10^3/ul Nucleated Red Blood 10^3/ul Cells # Pathologist YES Review (Hematology) Platelet Estimate NORMAL Hypochromasia 1+ Prothrombin Time 15.5 Sec Prothrombin Time 1.2 Ratio INR International 1.22 Normalized Ratio Activated 39.4 Sec Partial Thromboplas t Time Sodium Level 132 mmol/L Potassium Level 4.5 mmol/L Chloride Level 97 mmol/L Carbon Dioxide 24 mmol/L Level Anion Gap 11 Blood Urea Nitrogen 36 mg/dl Creatinine 1.92 mg/dl Est Glomerular 37 mL/min Filtrat Rate mL/min Glucose Level 245 mg/dl Calcium Level 8.5 mg/dl Total Bilirubin 0.6 mg/dl Direct Bilirubin 0.00 mg/dl Indirect Bilirubin 0.6 mg/dl Aspartate Amino 59 IU/L Transf (AST/SGOT) Alanine 32 IU/L Aminotransferase (A LT/SGPT) Alkaline 257 IU/L Phosphatase Troponin I < 0.012 ng/ml Total Protein 7.0 g/dl Albumin 3.1 g/dl Globulin 3.90 g/dl Albumin/Globulin 0.79 Ratio Ammonia < 9 umol/l POC Venous Lactate 2.2 mmol/L 1.8 mmol/L Current Medications Medications Dose Sig/Bridger Start Time Status Last (Trade) Ordered Route PRN Stop Time Admin Dose Reason Admin Vancomycin 250 ml @ ONCE STAT 08/23/18 DC 08/23/18 HCl 125 mls/hr IVPB 20:02 20:52 08/23/18 22:01 Piperacillin 100 ml @ ONCE STAT 08/23/18 DC 08/23/18 Sod/ 200 mls/hr IVPB 20:02 20:25 Tazobactam 08/23/18 20:31 Sod 650 mg ONCE ONCE 08/23/18 DC 08/23/18 Acetaminophen PO 20:30 20:26 (Tylenol 08/23/18 20:31 Tab) Sodium 2,010 ml BOLUS OVER 2 08/23/18 DC 08/23/18 Chloride HOURS STAT 20:26 20:51 (NS) IV* 08/23/18 20:27 Clindamycin 50 ml @ 50 ONCE IVPB 08/23/18 DC HCl/ mls/hr 21:00 Dextrose 08/23/18 21:59 Ondansetron 4 mg BRIDGE ORDER 08/23/18 HCl (Zofran PRN IV 21:30 Inj) NAUSEA/VOMITI 08/24/18 21:29 NG 650 mg ER BRIDGE 08/23/18 Acetaminophen PRN PO 21:30 (Tylenol .MILD PAIN 08/24/18 21:29 Tab) 1-3 OR TEMP Procedures/MDM X-ray of the chest read by radiology. X-ray of the right foot read by radiology shows gas gangrene. EKG read by me: Rate/Rhythm: Sinus tachycardia Intervals: Normal Impression: Tachycardia without ischemia Sepsis Documentation: Patient's infectious symptoms have not stabilized and the patient is at risk of rapid decompensation. The patient will be admitted for careful hydration, antibiotic therapy, and infectious source control. SEVERE SEPSIS CRITERIA: Infectious source: Gas gangrene of the right foot End organ damage indicated by: Lactate greater than 2 SEPSIS MANAGEMENT Time of recognition of sepsis: 2019. Time of recognition of severe sepsis: 2019. Time of recognition of septic shock: No septic shock at this time. 3 HOUR BUNDLE Blood cultures x 2 before broad-spectrum antibiotics: Yes 30 ml/kg NS bolus completed Initial lactate 2.2 Repeat lactate 1.8 SEPTIC SHOCK ASSESSMENT: No lactic acid > 4.0 No persistent hypotension (SBP < 90 or 40 mmHg drop, MAP < 65) despite 30 mL/kg IV fluid bolus VOLUME REASSESSMENT FOR SEPTIC SHOCK: No septic shock at this time PERSISTENT HYPOTENSION TREATMENT: Comfort care no Central line: PICC line in the right upper extremity Vasopressor started not required I considered further perfusion assessment with CVP measurement, SCVO2, bedside ultrasound volume assessment, passive leg raise, trial of further fluid bolus. And proceeded with 30 ml/kg fluid bolus of NSS, broad spectrum antibiotics, and admission. The patient will be admitted to the care of Dr. Rankin as he has [facility] insurance. I have reached out to Dr. Betancur who is on vacation and he has asked me to reach out to Dr. Morgan who is covering for him. I reached out to Dr. Morgan on [employer] as well as Dr. Rankin. The patient will likely need amputation of the foot. Vancomycin, Zosyn, and clindamycin were given for empiric treatment. CRITICAL CARE Critical care time 35 minutes Emergent fluid management while maintaining close respiratory support. Provision of immediate and broad-spectrum antibiotic therapy. Simultaneous assessment for possible sources in order to direct targeted therapy. Consideration for invasive and chemical support to prevent cardiopulmonary collapse. Critical care time is independent of procedures performed. Departure Diagnosis: Primary Impression: Gas gangrene Additional Impressions: Severe sepsis Wound, open, foot Encounter type: initial encounter Laterality: right Qualified Codes: S91.301A - Unspecified open wound, right foot, initial encounter Condition: Serious CHU PIMENTEL MD Aug 23, 2018 22:27
[2018-08-23 23:25] VITALS: BP 99/59; PULSE 89; RESP 18
[2018-08-23 23:30] VITALS: Ht 162.6 cm; Wt 67.9 kg
[2018-08-24] VITALS (18 sets, daily range): BP systolic 72–129; BP diastolic 47–77; PULSE 67–111; RESP 14–25
[2018-08-24] MEDS ORDERED: GLUCAGON 1 MG INJ IM PRN (02:30)
[2018-08-24] MEDS ORDERED: GLUCOSE GEL 15 GRAM TUBE PO PRN ×2 (02:30)
[2018-08-24] MEDS ORDERED: DEXTROSE 50% 50 ML SYRINGE IV PRN ×2 (02:30)
[2018-08-24] MEDS ORDERED: GLUCOSE GEL 15 GRAM TUBE BUCCAL PRN (02:30)
[2018-08-24] MEDS ORDERED: ONDANSETRON 4 MG INJ IV PRN (03:00)
[2018-08-24] MEDS ORDERED: PENDING SANTYL ORDER FOR WOUND CARE XX PRN (03:00)
[2018-08-24] MEDS ORDERED: ALTEPLASE (CATHFLO) 2 MG INJ CATHETER ONE (03:00)
[2018-08-24] MEDS ORDERED: ZOSYN PER PHARMACY XX SCH (03:00)
[2018-08-24] MEDS ORDERED: VANCOMYCIN IV PER PHARMACY XX SCH ×2 (03:00→05:00)
[2018-08-24] MEDS ORDERED: HYDROCODONE/APAP (5/325) TAB PO PRN (03:00)
[2018-08-24] MEDS: PANTOPRAZOLE (EC) 40 MG TAB PO SCH (05:18)
[2018-08-24] MEDS: SOD CHLORIDE 0.9% 1,000 ML IV SCH ×4 (05:19→21:33)
[2018-08-24] MEDS: INSULIN ASPART [NOVOLOG] 3 ML PEN SC SCH ×4 (08:25→22:14)
[2018-08-24] MEDS: LINAGLIPTIN 5 MG TABLET PO SCH (08:26)
[2018-08-24] MEDS: FERROUS SULFATE (EC) 325 MG TAB PO SCH (08:26)
[2018-08-24] MEDS: COLLAGENASE 5 GM (UD JAR) TOP SCH (08:27)
[2018-08-24] MEDS: PENTOXIFYLLINE (SR) 400 MG TAB PO SCH ×3 (08:29→22:09)
[2018-08-24] MEDS ORDERED: COLLAGENASE 5 GM (UD JAR) TOP PRN (09:00)
[2018-08-24] MEDS ORDERED: AMLODIPINE 5 MG TAB PO SCH (09:00)
[2018-08-24] MEDS: VANCOMYCIN 1 GM 250 ML IVPB SCH (12:12)
[2018-08-24] MEDS: ACETAMINOPHEN 325 MG TAB PO PRN (14:48)
--- NOTE | 2018-08-24 16:41 | QN ---
Documentation Comment SEEN AND EXAMINED GINA SUTTON MD Aug 24, 2018 16:41
[2018-08-24] MEDS ORDERED: ACETAMINOPHEN 1000MG/100ML IV 100 ML IVPB PRN (17:00)
[2018-08-24] MEDS ORDERED: SOD CHLORIDE 0.9% 500 ML IV ONE ×3 (17:00→22:30)
[2018-08-24] MEDS ORDERED: PIPER-TAZO 3.375 GM IV (PMX) 100 ML IVPB SCH (17:00)
[2018-08-24] MEDS ORDERED: DIPHENHYDRAMINE 50 MG INJ IV ONE (17:00)
--- NOTE | 2018-08-24 17:21 | CONS ---
DATE OF ADMISSION: 08/23/2018 DATE OF CONSULTATION: 08/23/2018 TYPE OF CONSULTATION: Infectious disease. REASON FOR CONSULTATION: Antibiotic management. HISTORY OF PRESENT ILLNESS: Robert Ruvalcaba is a 52-year-old male who comes in with a history of diabetes and hypertension and presents with foul smelling wound of the right foot. The pa cinthyant complains of fevers as well. His symptoms started the day prior to admission yesterday and he is on antibiotics. He has a PICC line in his right upper extremity. His transportation attendant is Dr. Higuera. His primary doctor is Dr. Shelton. The patient has a history of left foot toe amputation. The patien t no longer drinks. His last drink was in 2017. SOCIAL HISTORY: He does not smoke or abuse drugs. ALLERGIES: NONE TO PENICILLIN, SULFA OR FOODS. MEDICATIONS: Per chart. REVIEW OF SYSTEMS: As per HPI. HOSPITAL COURSE: The patient has a temperature of 102.2. His white count is 28,000, H and H 7.3 and 21.6, platelet count 345,000. BUN and creatinine is 36/1.92. He has 90% neutrophils, 6% bands, so he has certainly a left shift. His x-ray of the foot shows extensive soft tissue gas and edema throu ghout the foot and ankle concerning for severe soft tissue infection, no necrotizing fasciitis, no ac chasity osseous abnormalities of the right foot, atherosclerotic vascular calcifications. The patient wa s begun on vancomycin. He received clindamycin and Zosyn. He is currently on vancomycin and Zosyn a s far as I can see, although the Zosyn may have been a one-time order. He has blood cultures, urine cultures, stool culture, MRSA screen all pending. PHYSICAL EXAMINATION: VITAL SIGNS: T-max is 102.2. SKIN: Without generalized rash. HEENT: Within normal limits. NECK: Supple. LYMPH NODES: None palpable. CHEST: Decreased breath sounds at the bases. HEART: Without murmur or gallop. ABDOMEN: Soft, nontender without organosplenomegaly or masses. EXTREMITIES: He has necrotic gangrenous skin of the right foot for approximately the mid foot to the tip of the toes which is foul smelling and leaking. He has swelling of the right foot with gas in t he tissue. RECTAL AND GENITAL: Deferred. NEUROLOGICAL: No focal neurological abnormality. IMPRESSION AND PLAN: The patient should be seen by Dr. Higuera, his transportation attendant, as soon as possible. He has probably been seen already. He is on vancomycin, Zosyn and clindamycin and he is currently I believe on vancomycin and Zosyn, but I will check on that. It is possible that he will need amputat ion of the foot. I will dictate my findings to Dr. Azar, Dr. Shelton and Dr. Higuera. Dictated By: JARVIS TREJO MD, JD/NTS Conf#: [id number] DID#: [id number] CC: JOSE A HIGUERA DPM; KEMAL AZAR MD;*[facility]*
[2018-08-24] MEDS ORDERED: INSULIN ASPART [NOVOLOG] 3 ML PEN SC SCH ×2 (17:35→21:00)
--- NOTE | 2018-08-24 17:38 | HP ---
DATE OF ADMISSION: 08/23/2018 REASON FOR ADMISSION: Fevers. HISTORY OF PRESENTING ILLNESS: This is a 52-year-old male with a past medical history of diabetes type 2, hypertension, hyperlipidemia, history of left foot gangrene stab amputation of the left 3rd, 4th and 5th toe, history of recent admission from 07/03/2018 until 07/25/2018 secondary to right foot wound. At that time, patient was seen by Dr. De La Rosa and Dr. Higuera. The patient had excision of the wounds, also had amputation of the left 4th toe. The patient was seen by ID. The patient had a PICC line placed and was discharged home with IV vancomycin and cefepime. According to the patient, he had been receiving IV vancomycin and cefepime at home every day. Also, home health nurse was coming to evaluate him. According to him, he does not know what medications he has been taking at home. He was also seen by Dr. Higuera last week and was told that if the IV antibiotics do not work, he will need amputation. The patient started noticing foul smelling of the wounds on the right lower extremity, was also having fevers at home that made him come to the emergency department. On arrival to ED, vital signs show temperature of 102.2, heart rate 119, respirations 24, blood pressure initial 110/68, saturating 97%. White count 28.0, hemoglobin 7.3, BUN of 36, creatinine 1.92, sodium 132. The patient received Zosyn, vancomycin and clindamycin were given and the patient was admitted for further treatment. PAST MEDICAL HISTORY: 1. Noncompliant. 2. History of left foot cellulitis, status post amputation of the left 3rd, 4th and 5th toes. 3. Chronic anemia. 4. CKD. 5. Diabetes with complication of diabetic neuropathy, nephropathy. 6. Hypertension. 7. Peripheral vascular disease. ALLERGIES: NONE. MEDICATIONS TAKING AT HOME: 1. Ciprofloxacin. 2. Iron. 3. Pentoxifylline. 4. Amlodipine. 5. Clonidine 0.2 t.i.d. 6. Tradjenta. SOCIAL HISTORY: Denies any history of smoking, alcohol or any drug use. Lives with his at home. REVIEW OF SYSTEMS: The patient complains of some blurry vision of the right eye. Has been having bilateral lower extremity wounds with right wound with foul smelling discharge, fevers at home and sometimes cough. Denied any abdominal pain, nausea, vomiting, diarrhea. Denied any headache, any focal neurological deficit. VITAL SIGNS: Initial temperature of 102.2, heart rate was 119. General: Pt awake alert and oriented Neck:supple Lungs; clear abdomen: soft, non tender CVS: Regular rate and rthym Ext left foot s/p 3,4 5 th toe amputation, rt foot and rt ankle diffuse gangrenous changes , foul smelling,malodorous LABORATORY DATA: White count was 28.0, hemoglobin 7.3, platelet count 345. Sodium 134, BUN of 36, creatinine 1.84. DIAGNOSTIC DATA: The patient also had chest x-ray that showed no radiographic evidence of acute pulmonary evidence. He had a foot x-ray that shows extensive soft tissue gas and edema to right foot and ankle concerning for soft tissue infection, necrotizing fasciitis, no acute abnormality, atherosclerotic vascular calcifications. ASSESSMENT AND PLAN: 1. This is a 52-year-old male with sepsis secondary to right foot infection with possible soft tissue infection, necrotizing fasciitis (?). 2. Diabetes. 3. Acute kidney injury on chronic kidney disease. 4. Hyponatremia. 5. Hypotension, likely secondary to #1. 6. Right lower extremity foul smelling wounds. 7. Anemia, likely anemia of chronic disease. 8. Leukocytosis. 9 Sepsis due to #1 PLAN: At this period of time, the patient is admitted to med/surg. The patient will be started on vancomycin, Zosyn and clindamycin. ID consultation has been arranged. Podiatry consultation has been arranged. The patient will likely need below-knee amputation. We will also give 1 unit of blood. Hold blood pressure medicines. The patient will be on aggressive IV fluids. Rest of the treatment will depend on the patient's hospitalization course. Dictated By: GINA SCOTT/JEFFREY Conf#: [id number] DID#: [id number] CC: JOSE A HIGUERA DPM; KEMAL AZAR MD;*EndCC* MTDD
[2018-08-24] MEDS ORDERED: CLINDAMYCIN 300 MG/D5W (PMX) 50 ML IVPB SCH (18:00)
--- NOTE | 2018-08-24 18:43 | EN ---
Date/Time of Note Date/Time of Note DATE: 08/24/18 TIME: 18:38 Event Note Medicine Medicine Event Note Rapid response called around 18:13 for hypotension. Briefly, this is a 52 yo man with diabetes who is being treated outpatient for diabetic foot ulcer with osteomyelitis. He was admitted yesterday for failure to improve. The patient was found to be anemic this morning so blood transfusion was ordered. During a blood pressure check during the transfusion blood pressure was 70s/50s (MAP 56) and rapid response called. On my initial exam the patient was in Trendelenburg position. He is a thin man, awake, alert, answering questions appropriately in [place]. Denies any symptoms including dizziness, headache, chest pain/pressure/palpitations, itchiness, fever or chills. Pulse 80s, satting well on room air. Heart and lungs clear to auscultation. Blood pressure was repeated twice without significant change (70s/50s, MAP high 50s). Plan: - I do not suspect transfusion reaction, severe sepsis, ACS or pulmonary embolism. The patient had received his usual norvasc and clonidine earlier in the day. He does appear dehydrated but is appropriately getting crystalloid and colloid fluids. - No further workup needed. Patient had labs this morning already and has no signs or symptoms requiring further eval. - Plan to transfer to telemetry for closer monitoring. JOSE MORILLO MD Aug 24, 2018 18:43
[2018-08-24] MEDS ORDERED: INSULIN GLARGINE [LANTus] (100 UNITS/ML) SYG SC SCH (20:00)
[2018-08-24] MEDS: PIPER-TAZO 3.375 GM IV (PMX) 100 ML IVPB SCH (20:35)
[2018-08-24] MEDS ORDERED: MEROPENEM 500MG/50 ML (PMX) 50 ML IVPB SCH (21:00)
[2018-08-24] MEDS: DAKINS 0.0125%(1/40) 473 ML SOLUTION TP SCH (22:24)
[2018-08-24] MEDS ORDERED: NORepinephrine 8MG/250 ML (PMX 250 ML IV SCH (22:30)
[2018-08-25] VITALS (45 sets, daily range): BP systolic 95–159; BP diastolic 59–102; PULSE 71–118; RESP 10–28
[2018-08-25] MEDS: ACCU-CHEK XX SCH (01:41)
[2018-08-25] MEDS: PANTOPRAZOLE (EC) 40 MG TAB PO SCH (05:15)
[2018-08-25] MEDS: PIPER-TAZO 3.375 GM IV (PMX) 100 ML IVPB SCH ×3 (05:16→20:18)
[2018-08-25] MEDS: SOD CHLORIDE 0.9% 1,000 ML IV SCH ×3 (05:18→20:17)
[2018-08-25] MEDS ORDERED: CIPROFLOXACIN 500 MG TAB PO SCH (06:00)
[2018-08-25] MEDS: FERROUS SULFATE (EC) 325 MG TAB PO SCH (08:04)
[2018-08-25] MEDS: PENTOXIFYLLINE (SR) 400 MG TAB PO SCH ×3 (08:04→20:12)
[2018-08-25] MEDS: LINAGLIPTIN 5 MG TABLET PO SCH (08:04)
[2018-08-25] MEDS: DAKINS 0.0125%(1/40) 473 ML SOLUTION TP SCH ×2 (08:05→20:16)
[2018-08-25] MEDS: INSULIN ASPART [NOVOLOG] 3 ML PEN SC SCH ×6 (08:07→20:11)
[2018-08-25] MEDS: COLLAGENASE 5 GM (UD JAR) TOP SCH (08:11)
--- NOTE | 2018-08-25 09:38 | CONS ---
Assessment/Plan Assessment/Plan Assessment/Plan (Daily) 52 yo male with PVD and right foot gangrene. - I reviewed patient's records and x-rays. - Patient's right foot does not seem to be salvageable at this time and patient would mostly likely need a more proximal leg amputation. - Patient is currently being followed by Dr. De La Rosa. Thank you for allowing me to see this patient. Consultation Date/Type/Reason Admit Date/Time Aug 23, 2018 at 21:27 Date/Time of Note DATE: 08/25/18 TIME: 09:27 Hx of Present Illness Patient is a 52 yo male with PVD seen today for right foot gangrene per the consult on [facility]. Patient is seen by Dr. Betancur regularly. Patient is also followed by vascular surgeon Dr. De La Rosa as well. Patient presented to ED for further foul smell of his right foot. I had spoken to Dr. Betancur and he was going to see the patient yesterday. I am assuming patient has been seen, however, patient was evaluated today given I do not see a note on the system and a consult was placed for me. Past Medical History Home Meds Active Scripts Insulin Aspart* (Novolog Insulin Pen*) 100 Unit/Ml Soln, 0 UNIT SC AC MEALS AND BEDTIME for 30 Days Prov:TEODORO RIDER 07/19/18 Clonidine Hcl* (Catapres*) 0.2 Mg Tablet, 0.2 MG PO TID for 30 Days, TAB Prov:TEODORO RIDER 07/19/18 Amlodipine Besylate* (Amlodipine Besylate*) 5 Mg Tablet, 10 MG PO DAILY for 30 Days, TAB Prov:TEODORO RIDER 07/19/18 Pentoxifylline* (Pentoxifylline*) 400 Mg Tablet.sa, 400 MG PO TID for 30 Days Prov:TEODORO RIDER 07/19/18 Ferrous Sulfate* (Ferrous Sulfate*) 325 Mg Tabec, 325 MG PO DAILY for 30 Days, TAB Prov:TEODORO RIDER 07/19/18 Ciprofloxacin Hcl* (Ciprofloxacin Hcl*) 500 Mg Tablet, 500 MG PO BID@06,18 for 42 Days, TAB Prov:TEODORO RIDER 07/19/18 Linagliptin (TRADJENTA) 5 Mg Tablet, 5 MG PO DAILY for 30 Days, TAB Prov:GINA SUTTON MD 03/18/18 Medications Current Medications Ferrous Sulfate (Ferrous Sulfate (Ec)) 325 mg DAILY PO Last administered on 08/25/18at 08:04; Admin Dose 325 MG; Start 08/24/18 at 09:00 Linagliptin (Tradjenta) 5 mg DAILY PO Last administered on 08/25/18at 08:04; Admin Dose 5 MG; Start 08/24/18 at 09:00 Pentoxifylline (Trental) 400 mg TID PO Last administered on 08/25/18at 08:04; Admin Dose 400 MG; Start 08/24/18 at 09:00 Miscellaneous Information 1 ea NOTE XX ; Start 08/24/18 at 02:30 Glucose (Glutose) 15 gm Q15M PRN PO DECREASED GLUCOSE; Start 08/24/18 at 02:30 Glucose (Glutose) 22.5 gm Q15M PRN PO DECREASED GLUCOSE; Start 08/24/18 at 02:30 Dextrose (D50w Syringe) 25 ml Q15M PRN IV DECREASED GLUCOSE; Start 08/24/18 at 02:30 Dextrose (D50w Syringe) 50 ml Q15M PRN IV DECREASED GLUCOSE; Start 08/24/18 at 02:30 Glucagon (Glucagen) 1 mg Q15M PRN IM DECREASED GLUCOSE; Start 08/24/18 at 02:30 Glucose (Glutose) 15 gm Q15M PRN BUCCAL DECREASED GLUCOSE; Start 08/24/18 at 02:30 Sodium Chloride 1,000 ml @ 125 mls/hr Q8H IV Last administered on 08/25/18at 05:18; Admin Dose 125 MLS/HR; Start 08/24/18 at 03:00 Pantoprazole (Protonix Tab) 40 mg DAILY@06 PO Last administered on 08/25/18at 05:15; Admin Dose 40 MG; Start 08/24/18 at 06:00 Acetaminophen (Tylenol Tab) 650 mg Q6H PRN PO MILD PAIN(1-3)OR ELEVATED TEMP Last administered on 08/24/18at 14:48; Admin Dose 650 MG; Start 08/24/18 at 03:00 Ondansetron HCl (Zofran Inj) 4 mg Q6H PRN IV NAUSEA AND/OR VOMITING Last administered on 08/25/18 09:10; Admin Dose 4 MG; Start 08/24/18 at 03:00 Miscellaneous Information (* Miscellaneous Pharmacy Order) Zosyn per pharmacy ONCE XX ; Start 08/24/18 at 03:00 Acetaminophen/ Hydrocodone Bitart ([place] (5/325)) 1 tab Q6H PRN PO MODERATE PAIN LEVEL 4-6; Start 08/24/18 at 03:00 Miscellaneous Information (Pending Santyl Order For Wound Care) This patient mora... PRN PRN XX WOUND CARE; Start 08/24/18 at 03:00 Collagenase (Santyl) 1 applic DAILY TOP Last administered on 08/25/18 08:11; Admin Dose 1 APPLIC; Start 08/24/18 at 09:00 Collagenase (Santyl) 1 applic DAILY PRN TOP PRN; Start 08/24/18 at 09:00 Vancomycin HCl (Vanco Iv Per Pharmacy) VANCOMYCIN PER PHARMACY PER PROTOCOL XX ; Start 08/24/18 at 05:00 Vancomycin HCl 250 ml @ 125 mls/hr Q24H IVPB Last administered on 08/24/18 12:12; Admin Dose 125 MLS/HR; Start 08/24/18 at 13:00 Insulin Aspart (Novolog Insulin Pen) NOVOLOG *MILD* ALGORITHM WITH MEALS BEDTIME SC Last administered on 08/25/18 08:07; Admin Dose 1 UNIT; Start 08/24/18 at 08:00 Acetaminophen 100 ml @ 400 mls/hr Q6H PRN IVPB feb Last administered on 08/24/18 16:54; Admin Dose 400 MLS/HR; Start 08/24/18 at 17:00; Stop 08/25/18 at 16:59 Insulin Glargine (Lantus) 10 units DAILY@2000 SC Last administered on 08/24/18 22:13; Admin Dose 10 UNITS; Start 08/24/18 at 20:00 Diagnostic Test (Pha) (Accu-Chek) 1 ea XX Last administered on 08/25/18 01:41; Admin Dose 1 EA; Start 08/25/18 at 02:00 Sodium Hypochlorite (Dakins Diluted ()) 1 applic BID TP Last administered on 08/25/18 08:05; Admin Dose 1 APPLIC; Start 08/24/18 at 21:00 Piperacillin Sod/ Tazobactam Sod 100 ml @ 200 mls/hr Q8 IVPB Last administered on 08/25/18at 05:16; Admin Dose 200 MLS/HR; Start 08/24/18 at 20:30 Norepinephrine 250 ml @ 1.875 mls/ hr TITRATE IV Last administered on 08/24/18at 23:25; Admin Dose 3.75 MLS/HR; Start 08/24/18 at 22:30 Allergies: Coded Allergies: No Known Allergy (Unverified , 07/04/18) Past Surgical History Past Surgical Hx: other Social History Smoking Status: Former smoker Exam/Review of Systems Exam Vitals Vital Signs Date Temp Pulse Resp B/P (MAP) Pulse Ox O2 O2 Flow FiO2 Time Delivery Rate 08/25/18 98.1 107 25 137/83 98 Room Air 09:00 (101) Intake and Output 08/24/18 08/24/18 08/25/18 1515:00 23:00 07:00 IntakeIntake Total 250 ml 2830 ml 1667.740 ml OutputOutput Total 200 ml 0 ml BalanceBalance 250 ml 2630 ml 1667.740 ml Exam Non palpable pulses for right foot. Protective sensation diminished. There is gangrene of right foot across midfoot, mostly dry through out the digits and midfoot area. Results Result Diagram: 08/25/18 0430 08/25/18 0430 Results 24hrs Laboratory Tests Test 08/24/18 12:00 08/24/18 17:13 08/24/18 22:11 08/25/18 01:39 Bedside Glucose 189 209 274 H 204 Test 08/25/18 04:30 08/25/18 05:15 08/25/18 07:30 White Blood Count 28.3 H Red Blood Count 2.26 L Hemoglobin 6.7 *L Hematocrit 19.8 L Mean Corpuscular 87.6 Volume Mean Corpuscular 29.6 Hemoglobin Mean Corpuscular 33.8 Hemoglobin Concen t Red Cell 13.1 Distribution Width Platelet Count 281 Mean Platelet 9.7 Volume Immature 2.200 H Granulocytes % Neutrophils % Segmented 86 H Neutrophils % (Manual) Band Neutrophils 6 H % (Manual) Lymphocytes % Lymphocytes % 7 L (Manual) Monocytes % Monocytes % 1 (Manual) Eosinophils % Basophils % Nucleated Red 0.0 Blood Cells % Immature 0.620 H Granulocytes # Neutrophils # Neutrophils # 24.8 H (Manual) Band Neutrophils 1.6 H # Lymphocytes 1.9 (Manual) Lymphocytes # Monocytes # Monocytes # 0.2 L (Manual) Eosinophils # Basophils # Nucleated Red Blood Cells # Platelet Estimate NORMAL Polychromasia 1+ Poikilocytosis 1+ Target Cells 1+ Sodium Level 135 Potassium Level 3.8 Chloride Level 109 Carbon Dioxide 19 L Level Anion Gap 7 Blood Urea 37 H Nitrogen Creatinine 1.99 H Est Glomerular 35 L Filtrat Rate mL/min Glucose Level 174 Calcium Level 7.6 L Phosphorus Level 3.3 Magnesium Level 1.9 Lab Scanned BLOOD TRANSFUSIO Report N Bedside Glucose 164 Medications Medication Current Medications Ferrous Sulfate (Ferrous Sulfate (Ec)) 325 mg DAILY PO Last administered on 08/25/18at 08:04; Admin Dose 325 MG; Start 08/24/18 at 09:00 Linagliptin (Tradjenta) 5 mg DAILY PO Last administered on 08/25/18at 08:04; Admin Dose 5 MG; Start 08/24/18 at 09:00 Pentoxifylline (Trental) 400 mg TID PO Last administered on 08/25/18at 08:04; Admin Dose 400 MG; Start 08/24/18 at 09:00 Miscellaneous Information 1 ea NOTE XX ; Start 08/24/18 at 02:30 Glucose (Glutose) 15 gm Q15M PRN PO DECREASED GLUCOSE; Start 08/24/18 at 02:30 Glucose (Glutose) 22.5 gm Q15M PRN PO DECREASED GLUCOSE; Start 08/24/18 at 02:30 Dextrose (D50w Syringe) 25 ml Q15M PRN IV DECREASED GLUCOSE; Start 08/24/18 at 02:30 Dextrose (D50w Syringe) 50 ml Q15M PRN IV DECREASED GLUCOSE; Start 08/24/18 at 02:30 Glucagon (Glucagen) 1 mg Q15M PRN IM DECREASED GLUCOSE; Start 08/24/18 at 02:30 Glucose (Glutose) 15 gm Q15M PRN BUCCAL DECREASED GLUCOSE; Start 08/24/18 at 02:30 Sodium Chloride 1,000 ml @ 125 mls/hr Q8H IV Last administered on 08/25/18at 05:18; Admin Dose 125 MLS/HR; Start 08/24/18 at 03:00 Pantoprazole (Protonix Tab) 40 mg DAILY@06 PO Last administered on 08/25/18at 05:15; Admin Dose 40 MG; Start 08/24/18 at 06:00 Acetaminophen (Tylenol Tab) 650 mg Q6H PRN PO MILD PAIN(1-3)OR ELEVATED TEMP Last administered on 08/24/18at 14:48; Admin Dose 650 MG; Start 08/24/18 at 03:00 Ondansetron HCl (Zofran Inj) 4 mg Q6H PRN IV NAUSEA AND/OR VOMITING Last administered on 08/25/18 09:10; Admin Dose 4 MG; Start 08/24/18 at 03:00 Miscellaneous Information (* Miscellaneous Pharmacy Order) Zosyn per pharmacy ONCE XX ; Start 08/24/18 at 03:00 Acetaminophen/ Hydrocodone Bitart ([place] (5/325)) 1 tab Q6H PRN PO MODERATE PAIN LEVEL 4-6; Start 08/24/18 at 03:00 Miscellaneous Information (Pending Santyl Order For Wound Care) This patient mora... PRN PRN XX WOUND CARE; Start 08/24/18 at 03:00 Collagenase (Santyl) 1 applic DAILY TOP Last administered on 08/25/18at 08:11; Admin Dose 1 APPLIC; Start 08/24/18 at 09:00 Collagenase (Santyl) 1 applic DAILY PRN TOP PRN; Start 08/24/18 at 09:00 Vancomycin HCl (Vanco Iv Per Pharmacy) VANCOMYCIN PER PHARMACY PER PROTOCOL XX ; Start 08/24/18 at 05:00 Vancomycin HCl 250 ml @ 125 mls/hr Q24H IVPB Last administered on 08/24/18at 12:12; Admin Dose 125 MLS/HR; Start 08/24/18 at 13:00 Insulin Aspart (Novolog Insulin Pen) NOVOLOG *MILD* ALGORITHM WITH MEALS BEDTIME SC Last administered on 08/25/18 08:07; Admin Dose 1 UNIT; Start 08/24/18 at 08:00 Acetaminophen 100 ml @ 400 mls/hr Q6H PRN IVPB feb Last administered on 08/24/18at 16:54; Admin Dose 400 MLS/HR; Start 08/24/18 at 17:00; Stop 08/25/18 at 16:59 Insulin Glargine (Lantus) 10 units DAILY@2000 SC Last administered on 08/24/18at 22:13; Admin Dose 10 UNITS; Start 08/24/18 at 20:00 Diagnostic Test (Pha) (Accu-Chek) 1 ea 02 XX Last administered on 08/25/18 01 :41; Admin Dose 1 EA; Start 08/25/18 at 02:00 Sodium Hypochlorite (Dakins Diluted ()) 1 applic BID TP Last administered on 08/25/18at 08:05; Admin Dose 1 APPLIC; Start 08/24/18 at 21:00 Piperacillin Sod/ Tazobactam Sod 100 ml @ 200 mls/hr Q8 IVPB Last administered on 08/25/18 05:16; Admin Dose 200 MLS/HR; Start 08/24/18 at 20:30 Norepinephrine 250 ml @ 1.875 mls/ hr TITRATE IV Last administered on 08/24/18at 23:25; Admin Dose 3.75 MLS/HR; Start 08/24/18 at 22:30 NAPOLEON PAULINO DPBreezy Aug 25, 2018 09:38
--- NOTE | 2018-08-25 10:47 | PN ---
Date/Time of Note Date/Time of Note DATE: 08/25/18 TIME: 10:39 Assessment/Plan VTE Prophylaxis Risk score (from [facility])>0 risk: 7 SCD applied (from [facility]): No SCD contraindicated: low risk/ambulating Pharmacological prophylaxis: NA/contraindicated Pharm contraindication: low risk/ambulating Lines/Catheters IV [facility]ter Type (from [facility]): PICC Line Central line still needed: Yes Urinary Cath still in place: No Assessment/Plan Assessment/Plan SESSMENT AND PLAN: 52-year-old male with 1 septic shock secondary to right foot infection with possible soft tissue infection, necrotizing fasciitis (?). Now with gram-negative bacteremia 2. Diabetes. 3. Acute kidney injury on chronic kidney disease. 4. Hyponatremia. 5. Hypotension, likely secondary to #1. 6. Right lower extremity foul smelling wounds. 7. Anemia, likely anemia of chronic disease, no blood loss no history of GI bleeding 8 Leukocytosis Plan -2 units of blood today - off pressors - cw vancomycin/zosyn - left message for dr perez for AMPUTATION POLO - FU ID recs - NS at 125 cc/hr - hold bp meds - gi/dvt PROPHYLAXSIS Result Diagram: 08/25/18 0430 08/25/18 0430 Results 24hrs Laboratory Tests Test 08/24/18 12:00 08/24/18 17:13 08/24/18 22:11 08/25/18 01:39 Bedside Glucose 189 209 274 H 204 Test 08/25/18 04:30 08/25/18 05:15 08/25/18 07:30 White Blood Count 28.3 H Red Blood Count 2.26 L Hemoglobin 6.7 *L Hematocrit 19.8 L Mean Corpuscular 87.6 Volume Mean Corpuscular 29.6 Hemoglobin Mean Corpuscular 33.8 Hemoglobin Concen t Red Cell 13.1 Distribution Width Platelet Count 281 Mean Platelet 9.7 Volume Immature 2.200 H Granulocytes % Neutrophils % Segmented 86 H Neutrophils % (Manual) Band Neutrophils 6 H % (Manual) Lymphocytes % Lymphocytes % 7 L (Manual) Monocytes % Monocytes % 1 (Manual) Eosinophils % Basophils % Nucleated Red 0.0 Blood Cells % Immature 0.620 H Granulocytes # Neutrophils # Neutrophils # 24.8 H (Manual) Band Neutrophils 1.6 H # Lymphocytes 1.9 (Manual) Lymphocytes # Monocytes # Monocytes # 0.2 L (Manual) Eosinophils # Basophils # Nucleated Red Blood Cells # Platelet Estimate NORMAL Polychromasia 1+ Poikilocytosis 1+ Target Cells 1+ Sodium Level 135 Potassium Level 3.8 Chloride Level 109 Carbon Dioxide 19 L Level Anion Gap 7 Blood Urea 37 H Nitrogen Creatinine 1.99 H Est Glomerular 35 L Filtrat Rate mL/min Glucose Level 174 Calcium Level 7.6 L Phosphorus Level 3.3 Magnesium Level 1.9 Lab Scanned BLOOD TRANSFUSIO Report N Bedside Glucose 164 Subjective 24 Hr Interval Summary Free Text/Dictation Patient became night and was transferred to ICU he had received bolus and was on IV fluids with NS Systolic blood pressure was in 70s was started on levo fed however currently blood pressure is much improved and is off levo fed White blood cell count is 28 and hemoglobin 6.7 Exam/Review of Systems Exam Vitals Vital Signs Date Temp Pulse Resp B/P (MAP) Pulse Ox O2 O2 Flow FiO2 Time Delivery Rate 08/25/18 98.1 107 25 137/83 98 Room Air 09:00 (101) Intake and Output 08/24/18 08/24/18 08/25/18 1515:00 23:00 07:00 IntakeIntake Total 250 ml 2830 ml 1667.740 ml OutputOutput Total 200 ml 0 ml BalanceBalance 250 ml 2630 ml 1667.740 ml Exam ext sensitive gangrenous changes of the right foot Results Results 24hrs Laboratory Tests Test 08/24/18 12:00 08/24/18 17:13 08/24/18 22:11 08/25/18 01:39 Bedside Glucose 189 209 274 H 204 Test 08/25/18 04:30 08/25/18 05:15 08/25/18 07:30 White Blood Count 28.3 H Red Blood Count 2.26 L Hemoglobin 6.7 *L Hematocrit 19.8 L Mean Corpuscular 87.6 Volume Mean Corpuscular 29.6 Hemoglobin Mean Corpuscular 33.8 Hemoglobin Concen t Red Cell 13.1 Distribution Width Platelet Count 281 Mean Platelet 9.7 Volume Immature 2.200 H Granulocytes % Neutrophils % Segmented 86 H Neutrophils % (Manual) Band Neutrophils 6 H % (Manual) Lymphocytes % Lymphocytes % 7 L (Manual) Monocytes % Monocytes % 1 (Manual) Eosinophils % Basophils % Nucleated Red 0.0 Blood Cells % Immature 0.620 H Granulocytes # Neutrophils # Neutrophils # 24.8 H (Manual) Band Neutrophils 1.6 H # Lymphocytes 1.9 (Manual) Lymphocytes # Monocytes # Monocytes # 0.2 L (Manual) Eosinophils # Basophils # Nucleated Red Blood Cells # Platelet Estimate NORMAL Polychromasia 1+ Poikilocytosis 1+ Target Cells 1+ Sodium Level 135 Potassium Level 3.8 Chloride Level 109 Carbon Dioxide 19 L Level Anion Gap 7 Blood Urea 37 H Nitrogen Creatinine 1.99 H Est Glomerular 35 L Filtrat Rate mL/min Glucose Level 174 Calcium Level 7.6 L Phosphorus Level 3.3 Magnesium Level 1.9 Lab Scanned BLOOD TRANSFUSIO Report N Bedside Glucose 164 Medications Medication Current Medications Ferrous Sulfate (Ferrous Sulfate (Ec)) 325 mg DAILY PO Last administered on 08/25/18at 08:04; Admin Dose 325 MG; Start 08/24/18 at 09:00 Linagliptin (Tradjenta) 5 mg DAILY PO Last administered on 08/25/18at 08:04; Admin Dose 5 MG; Start 08/24/18 at 09:00 Pentoxifylline (Trental) 400 mg TID PO Last administered on 08/25/18at 08:04; Admin Dose 400 MG; Start 08/24/18 at 09:00 Miscellaneous Information 1 ea NOTE XX ; Start 08/24/18 at 02:30 Glucose (Glutose) 15 gm Q15M PRN PO DECREASED GLUCOSE; Start 08/24/18 at 02:30 Glucose (Glutose) 22.5 gm Q15M PRN PO DECREASED GLUCOSE; Start 08/24/18 at 02:30 Dextrose (D50w Syringe) 25 ml Q15M PRN IV DECREASED GLUCOSE; Start 08/24/18 at 02:30 Dextrose (D50w Syringe) 50 ml Q15M PRN IV DECREASED GLUCOSE; Start 08/24/18 at 02:30 Glucagon (Glucagen) 1 mg Q15M PRN IM DECREASED GLUCOSE; Start 08/24/18 at 02:30 Glucose (Glutose) 15 gm Q15M PRN BUCCAL DECREASED GLUCOSE; Start 08/24/18 at 02:30 Sodium Chloride 1,000 ml @ 125 mls/hr Q8H IV Last administered on 08/25/18at 05:18; Admin Dose 125 MLS/HR; Start 08/24/18 at 03:00 Pantoprazole (Protonix Tab) 40 mg DAILY@06 PO Last administered on 08/25/18 05:15; Admin Dose 40 MG; Start 08/24/18 at 06:00 Acetaminophen (Tylenol Tab) 650 mg Q6H PRN PO MILD PAIN(1-3)OR ELEVATED TEMP Last administered on 08/24/18 14:48; Admin Dose 650 MG; Start 08/24/18 at 03:00 Ondansetron HCl (Zofran Inj) 4 mg Q6H PRN IV NAUSEA AND/OR VOMITING Last administered on 08/25/18 09:10; Admin Dose 4 MG; Start 08/24/18 at 03:00 Miscellaneous Information (* Miscellaneous Pharmacy Order) Zosyn per pharmacy ONCE XX ; Start 08/24/18 at 03:00 Acetaminophen/ Hydrocodone Bitart ([place] (5/325)) 1 tab Q6H PRN PO MODERATE PAIN LEVEL 4-6; Start 08/24/18 at 03:00 Miscellaneous Information (Pending Santyl Order For Wound Care) This patient mora... PRN PRN XX WOUND CARE; Start 08/24/18 at 03:00 Collagenase (Santyl) 1 applic DAILY TOP Last administered on 08/25/18 08:11; Admin Dose 1 APPLIC; Start 08/24/18 at 09:00 Collagenase (Santyl) 1 applic DAILY PRN TOP PRN; Start 08/24/18 at 09:00 Vancomycin HCl (Vanco Iv Per Pharmacy) VANCOMYCIN PER PHARMACY PER PROTOCOL XX ; Start 08/24/18 at 05:00 Vancomycin HCl 250 ml @ 125 mls/hr Q24H IVPB Last administered on 08/24/18 12:12; Admin Dose 125 MLS/HR; Start 08/24/18 at 13:00 Insulin Aspart (Novolog Insulin Pen) NOVOLOG *MILD* ALGORITHM WITH MEALS BEDTIME SC Last administered on 08/25/18 08:07; Admin Dose 1 UNIT; Start 08/24/18 at 08:00 Acetaminophen 100 ml @ 400 mls/hr Q6H PRN IVPB feb Last administered on 08/24/18 16:54; Admin Dose 400 MLS/HR; Start 08/24/18 at 17:00; Stop 08/25/18 at 16:59 Diagnostic Test (Pha) (Accu-Chek) 1 ea 02 XX Last administered on 08/25/18at 01:41; Admin Dose 1 EA; Start 08/25/18 at 02:00 Sodium Hypochlorite (Dakins Diluted ()) 1 applic BID TP Last administered on 08/25/18at 08:05; Admin Dose 1 APPLIC; Start 08/24/18 at 21:00 Piperacillin Sod/ Tazobactam Sod 100 ml @ 200 mls/hr Q8 IVPB Last administered on 08/25/18at 05:16; Admin Dose 200 MLS/HR; Start 08/24/18 at 20:30 Norepinephrine 250 ml @ 1.875 mls/ hr TITRATE IV Last administered on 08/24/18at 23:25; Admin Dose 3.75 MLS/HR; Start 08/24/18 at 22:30 Insulin Glargine (Lantus) 18 units DAILY@2000 SC ; Start 08/25/18 at 20:00 Miscellaneous Information (* Miscellaneous Pharmacy Order) Discontinue current oral sulfonylur... ONCE ONCE XX ; Start 08/25/18 at 11:00; Stop 08/25/18 at 11:01; Status UNV Diagnostic Test (Pha) (Accu-Chek) 1 ea XX ; Start 08/26/18 at 02:00; Status UNV Insulin Aspart (Novolog Insulin Pen) 3 unit WITH MEALS SC ; Start 08/25/18 at 11:30; Status UNV Miscellaneous Information (* Miscellaneous Pharmacy Order) HYPOGLYCEMIA PROTOCOL w... ONCE ONCE XX ; Start 08/25/18 at 11:00; Stop 08/25/18 at 11:01; Status UNV Miscellaneous Information (* Miscellaneous Pharmacy Order) Discontinue all previ... ONCE ONCE XX ; Start 08/25/18 at 11:00; Stop 08/25/18 at 11:01; Status UNV GINA SUTTON MD Aug 25, 2018 10:47
--- NOTE | 2018-08-25 11:06 | CONS ---
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 peripheral vascular disease no good targets for revascularization his foot is not salvageable at the present time Agree with the need for right below-knee amputation discussed with the patient at length all questions answered Consultation Date/Type/Reason Admit Date/Time Aug 23, 2018 at 21:27 Date of Consultation: Aug 25, 2018 Type of Consult Gangrene right leg Vascular surgery Reason for Consultation Gangrene right leg Date/Time of Note DATE: 08/25/18 TIME: 11:02 Hx of Present Illness This is a 52-year-old male with a history of hypertension diabetes peripheral vascular disease gangrene of the right foot patient has been previously seen had an angiogram which showed patent posterior tibial artery runoff to the foot however patient had severe distal peripheral vascular disease with no targets for revascularization patient has had an gangrene of the right toes which is now progressed to gangrene of the right foot that involves the proximal right foot which is not salvageable patient has also been noncompliant has been receiving antibiotics he has had a temperature of 102 and he is also anemic with a h emoglobin of 6 Past Medical History Home Meds Active Scripts Insulin Aspart* (Novolog Insulin Pen*) 100 Unit/Ml Soln, 0 UNIT SC AC MEALS AND BEDTIME for 30 Days Prov:TEODORO RIDER 07/19/18 Clonidine Hcl* (Catapres*) 0.2 Mg Tablet, 0.2 MG PO TID for 30 Days, TAB Prov:TEODORO RIDER 07/19/18 Amlodipine Besylate* (Amlodipine Besylate*) 5 Mg Tablet, 10 MG PO DAILY for 30 Days, TAB Prov:TEODORO RIDER 07/19/18 Pentoxifylline* (Pentoxifylline*) 400 Mg Tablet.sa, 400 MG PO TID for 30 Days Prov:TEODORO RIDER 07/19/18 Ferrous Sulfate* (Ferrous Sulfate*) 325 Mg Tabec, 325 MG PO DAILY for 30 Days, TAB Prov:TEODORO RIDER 07/19/18 Ciprofloxacin Hcl* (Ciprofloxacin Hcl*) 500 Mg Tablet, 500 MG PO BID@06,18 for 42 Days, TAB Prov:TEODORO RIDER 07/19/18 Linagliptin (TRADJENTA) 5 Mg Tablet, 5 MG PO DAILY for 30 Days, TAB Prov:GINA SUTTON MD 03/18/18 Medications Current Medications Ferrous Sulfate (Ferrous Sulfate (Ec)) 325 mg DAILY PO Last administered on 08/25/18at 08:04; Admin Dose 325 MG; Start 08/24/18 at 09:00 Linagliptin (Tradjenta) 5 mg DAILY PO Last administered on 08/25/18at 08:04; Admin Dose 5 MG; Start 08/24/18 at 09:00 Pentoxifylline (Trental) 400 mg TID PO Last administered on 08/25/18at 08:04; Admin Dose 400 MG; Start 08/24/18 at 09:00 Miscellaneous Information 1 ea NOTE XX ; Start 08/24/18 at 02:30 Glucose (Glutose) 15 gm Q15M PRN PO DECREASED GLUCOSE; Start 08/24/18 at 02:30 Glucose (Glutose) 22.5 gm Q15M PRN PO DECREASED GLUCOSE; Start 08/24/18 at 02:30 Dextrose (D50w Syringe) 25 ml Q15M PRN IV DECREASED GLUCOSE; Start 08/24/18 at 02:30 Dextrose (D50w Syringe) 50 ml Q15M PRN IV DECREASED GLUCOSE; Start 08/24/18 at 02:30 Glucagon (Glucagen) 1 mg Q15M PRN IM DECREASED GLUCOSE; Start 08/24/18 at 02:30 Glucose (Glutose) 15 gm Q15M PRN BUCCAL DECREASED GLUCOSE; Start 08/24/18 at 02:30 Sodium Chloride 1,000 ml @ 125 mls/hr Q8H IV Last administered on 08/25/18at 05:18; Admin Dose 125 MLS/HR; Start 08/24/18 at 03:00 Pantoprazole (Protonix Tab) 40 mg DAILY@06 PO Last administered on 08/25/18at 05:15; Admin Dose 40 MG; Start 08/24/18 at 06:00 Acetaminophen (Tylenol Tab) 650 mg Q6H PRN PO MILD PAIN(1-3)OR ELEVATED TEMP Last administered on 08/24/18at 14:48; Admin Dose 650 MG; Start 08/24/18 at 03:00 Ondansetron HCl (Zofran Inj) 4 mg Q6H PRN IV NAUSEA AND/OR VOMITING Last administered on 08/25/18 09:10; Admin Dose 4 MG; Start 08/24/18 at 03:00 Miscellaneous Information (* Miscellaneous Pharmacy Order) Zosyn per pharmacy ONCE XX ; Start 08/24/18 at 03:00 Acetaminophen/ Hydrocodone Bitart ([place] (5/325)) 1 tab Q6H PRN PO MODERATE PAIN LEVEL 4-6; Start 08/24/18 at 03:00 Miscellaneous Information (Pending Santyl Order For Wound Care) This patient mora... PRN PRN XX WOUND CARE; Start 08/24/18 at 03:00 Collagenase (Santyl) 1 applic DAILY TOP Last administered on 08/25/18 08:11; Admin Dose 1 APPLIC; Start 08/24/18 at 09:00 Collagenase (Santyl) 1 applic DAILY PRN TOP PRN; Start 08/24/18 at 09:00 Vancomycin HCl (Vanco Iv Per Pharmacy) VANCOMYCIN PER PHARMACY PER PROTOCOL XX ; Start 08/24/18 at 05:00 Vancomycin HCl 250 ml @ 125 mls/hr Q24H IVPB Last administered on 08/24/18at 12:12; Admin Dose 125 MLS/HR; Start 08/24/18 at 13:00 Insulin Aspart (Novolog Insulin Pen) NOVOLOG *MILD* ALGORITHM WITH MEALS BEDTIME SC Last administered on 08/25/18 08:07; Admin Dose 1 UNIT; Start 08/24/18 at 08:00 Acetaminophen 100 ml @ 400 mls/hr Q6H PRN IVPB feb Last administered on 08/24/18 16:54; Admin Dose 400 MLS/HR; Start 08/24/18 at 17:00; Stop 08/25/18 at 16:59 Diagnostic Test (Pha) (Accu-Chek) 1 ea 02 XX Last administered on 08/25/18 01:41; Admin Dose 1 EA; Start 08/25/18 at 02:00 Sodium Hypochlorite (Dakins Diluted ()) 1 applic BID TP Last administered on 08/25/18 08:05; Admin Dose 1 APPLIC; Start 08/24/18 at 21:00 Piperacillin Sod/ Tazobactam Sod 100 ml @ 200 mls/hr Q8 IVPB Last administered on 4/30/19at 05:16; Admin Dose 200 MLS/HR; Start 08/24/18 at 20:30 Norepinephrine 250 ml @ 1.875 mls/ hr TITRATE IV Last administered on 08/24/18at 23:25; Admin Dose 3.75 MLS/HR; Start 08/24/18 at 22:30 Insulin Glargine (Lantus) 18 units DAILY@2000 SC ; Start 08/25/18 at 20:00 Diagnostic Test (Pha) (Accu-Chek) 1 ea 02 XX ; Start 08/26/18 at 02:00 Insulin Aspart (Novolog Insulin Pen) 3 unit WITH MEALS SC ; Start 08/25/18 at 11:30 Allergies: Coded Allergies: No Known Allergy (Unverified , 07/04/18) Past Surgical History Past Surgical Hx: other Social History Smoking Status: Former smoker Exam/Review of Systems Exam Vitals Vital Signs Date Temp Pulse Resp B/P (MAP) Pulse Ox O2 O2 Flow FiO2 Time Delivery Rate 08/25/18 98.1 107 25 137/83 98 Room Air 09:00 (101) Intake and Output 08/24/18 08/24/18 08/25/18 1515:00 23:00 07:00 IntakeIntake Total 250 ml 2830 ml 1667.740 ml OutputOutput Total 200 ml 0 ml BalanceBalance 250 ml 2630 ml 1667.740 ml Eyes: nl conjunctiva, EOMI, nl lids, nl sclera, PERRL ENMT: nl external ears & nose, nl lips & teeth, nl nasal mucosa & septum Neck: supple, non-tender Respiratory: clear to auscultation, normal air movement Cardiovascular: regular rate and rhythm, nl pulses Gastrointestinal: soft, nl liver, spleen, non-tender Additional Comments There is palpable bilateral femoral pulses bilateral popliteal pulses the pedal pulses cannot be palpated secondary to edema and wounds on the foot there is gangrene of the right foot involving most of the right foot up to the ankle Results Result Diagram: 08/25/18 0430 08/25/18 0430 Results 24hrs Laboratory Tests Test 08/24/18 12:00 08/24/18 17:13 08/24/18 22:11 08/25/18 01:39 Bedside Glucose 189 209 274 H 204 Test 08/25/18 04:30 08/25/18 05:15 08/25/18 07:30 White Blood Count 28.3 H Red Blood Count 2.26 L Hemoglobin 6.7 *L Hematocrit 19.8 L Mean Corpuscular 87.6 Volume Mean Corpuscular 29.6 Hemoglobin Mean Corpuscular 33.8 Hemoglobin Concen t Red Cell 13.1 Distribution Width Platelet Count 281 Mean Platelet 9.7 Volume Immature 2.200 H Granulocytes % Neutrophils % Segmented 86 H Neutrophils % (Manual) Band Neutrophils 6 H % (Manual) Lymphocytes % Lymphocytes % 7 L (Manual) Monocytes % Monocytes % 1 (Manual) Eosinophils % Basophils % Nucleated Red 0.0 Blood Cells % Immature 0.620 H Granulocytes # Neutrophils # Neutrophils # 24.8 H (Manual) Band Neutrophils 1.6 H # Lymphocytes 1.9 (Manual) Lymphocytes # Monocytes # Monocytes # 0.2 L (Manual) Eosinophils # Basophils # Nucleated Red Blood Cells # Platelet Estimate NORMAL Polychromasia 1+ Poikilocytosis 1+ Target Cells 1+ Sodium Level 135 Potassium Level 3.8 Chloride Level 109 Carbon Dioxide 19 L Level Anion Gap 7 Blood Urea 37 H Nitrogen Creatinine 1.99 H Est Glomerular 35 L Filtrat Rate mL/min Glucose Level 174 Calcium Level 7.6 L Phosphorus Level 3.3 Magnesium Level 1.9 Lab Scanned BLOOD TRANSFUSIO Report N Bedside Glucose 164 Medications Medication Current Medications Ferrous Sulfate (Ferrous Sulfate (Ec)) 325 mg DAILY PO Last administered on 08/25/18at 08:04; Admin Dose 325 MG; Start 08/24/18 at 09:00 Linagliptin (Tradjenta) 5 mg DAILY PO Last administered on 08/25/18at 08:04; Admin Dose 5 MG; Start 08/24/18 at 09:00 Pentoxifylline (Trental) 400 mg TID PO Last administered on 08/25/18at 08:04; Admin Dose 400 MG; Start 08/24/18 at 09:00 Miscellaneous Information 1 ea NOTE XX ; Start 08/24/18 at 02:30 Glucose (Glutose) 15 gm Q15M PRN PO DECREASED GLUCOSE; Start 08/24/18 at 02:30 Glucose (Glutose) 22.5 gm Q15M PRN PO DECREASED GLUCOSE; Start 08/24/18 at 02:30 Dextrose (D50w Syringe) 25 ml Q15M PRN IV DECREASED GLUCOSE; Start 08/24/18 at 02:30 Dextrose (D50w Syringe) 50 ml Q15M PRN IV DECREASED GLUCOSE; Start 08/24/18 at 02:30 Glucagon (Glucagen) 1 mg Q15M PRN IM DECREASED GLUCOSE; Start 08/24/18 at 02:30 Glucose (Glutose) 15 gm Q15M PRN BUCCAL DECREASED GLUCOSE; Start 08/24/18 at 02:30 Sodium Chloride 1,000 ml @ 125 mls/hr Q8H IV Last administered on 08/25/18at 05:18; Admin Dose 125 MLS/HR; Start 08/24/18 at 03:00 Pantoprazole (Protonix Tab) 40 mg DAILY@06 PO Last administered on 08/25/18at 05:15; Admin Dose 40 MG; Start 08/24/18 at 06:00 Acetaminophen (Tylenol Tab) 650 mg Q6H PRN PO MILD PAIN(1-3)OR ELEVATED TEMP Last administered on 08/24/18at 14:48; Admin Dose 650 MG; Start 08/24/18 at 03:00 Ondansetron HCl (Zofran Inj) 4 mg Q6H PRN IV NAUSEA AND/OR VOMITING Last administered on 08/25/18at 09:10; Admin Dose 4 MG; Start 08/24/18 at 03:00 Miscellaneous Information (* Miscellaneous Pharmacy Order) Zosyn per pharmacy ONCE XX ; Start 08/24/18 at 03:00 Acetaminophen/ Hydrocodone Bitart ([place] (5/325)) 1 tab Q6H PRN PO MODERATE PAIN LEVEL 4-6; Start 08/24/18 at 03:00 Miscellaneous Information (Pending Santyl Order For Wound Care) This patient mora... PRN PRN XX WOUND CARE; Start 08/24/18 at 03:00 Collagenase (Santyl) 1 applic DAILY TOP Last administered on 08/25/18at 08:11; Admin Dose 1 APPLIC; Start 08/24/18 at 09:00 Collagenase (Santyl) 1 applic DAILY PRN TOP PRN; Start 08/24/18 at 09:00 Vancomycin HCl (Vanco Iv Per Pharmacy) VANCOMYCIN PER PHARMACY PER PROTOCOL XX ; Start 08/24/18 at 05:00 Vancomycin HCl 250 ml @ 125 mls/hr Q24H IVPB Last administered on 08/24/18 12:12; Admin Dose 125 MLS/HR; Start 08/24/18 at 13:00 Insulin Aspart (Novolog Insulin Pen) NOVOLOG *MILD* ALGORITHM WITH MEALS BEDTIME SC Last administered on 08/25/18 08:07; Admin Dose 1 UNIT; Start 08/24/18 at 08:00 Acetaminophen 100 ml @ 400 mls/hr Q6H PRN IVPB feb Last administered on 08/24/18 16:54; Admin Dose 400 MLS/HR; Start 08/24/18 at 17:00; Stop 08/25/18 at 16:59 Diagnostic Test (Pha) (Accu-Chek) 1 ea 02 XX Last administered on 08/25/18 01:41; Admin Dose 1 EA; Start 08/25/18 at 02:00 Sodium Hypochlorite (Dakins Diluted ()) 1 applic BID TP Last administered on 08/25/18 08:05; Admin Dose 1 APPLIC; Start 08/24/18 at 21:00 Piperacillin Sod/ Tazobactam Sod 100 ml @ 200 mls/hr Q8 IVPB Last administered on 08/25/18 05:16; Admin Dose 200 MLS/HR; Start 08/24/18 at 20:30 Norepinephrine 250 ml @ 1.875 mls/ hr TITRATE IV Last administered on 08/24/18 23:25; Admin Dose 3.75 MLS/HR; Start 08/24/18 at 22:30 Insulin Glargine (Lantus) 18 units DAILY@2000 SC ; Start 08/25/18 at 20:00 Diagnostic Test (Pha) (Accu-Chek) 1 ea 02 XX ; Start 08/26/18 at 02:00 Insulin Aspart (Novolog Insulin Pen) 3 unit WITH MEALS SC ; Start 08/25/18 at 11:30 DONTRELL RODRIGUEZ MD Aug 25, 2018 11:06
[2018-08-25] MEDS: VANCOMYCIN 1 GM 250 ML IVPB SCH (12:10)
--- NOTE | 2018-08-25 14:41 | CONS ---
Assessment/Plan Assessment/Plan Hospital Course (Demo Recall) Patient is alert complaining of nausea is in no distress afebrile status post hypotensive episode yesterday for which she was transferred to ICU. WBC 28.3 H&H 6.7 and 19.8 platelets 281 neutrophils 86 BUN 37 creatinine 1.99 Microbiology: Blood culture on admission grew gram-negative rods and enterococcus species Chest x-ray reveals no radiographic evidence of acute cardiopulmonary process Indwelling's: Right upper extremity PICC line Antimicrobials: Zosyn, vancomycin Physical examination: This is a well-developed well-nourished middle-aged male who is alert in no distress. Head atraumatic normocephalic sclera nonicteric. Neck is supple. Chest rise symmetrical, breath sounds clear. Heart: S1-S2. Abdomen soft bowel sounds present. Extremities with bilateral lower extremity dressings present with purulent drainage and foul order also patient has gangrene all stools Assessment: 1. Severe sepsis, present on admission 2. Bilateral lower extremity's gangrene/osteomyelitis 3. Peripheral arterial disease 4. Diabetes 5. Acute kidney injury 6. Anemia Plan: Patient is clinically stable, on appropriate antibiotic regimen, pending final cultures, he is being followed by vascular team his right foot does not seem to be salvageable, pending below-knee amputation, continue management of his left lower extremity per podiatry recommendations Consultation Date/Type/Reason Admit Date/Time Aug 23, 2018 at 21:27 Initial Consult Date 08/25/18 Type of Consult id Date/Time of Note DATE: 08/25/18 TIME: 14:40 Exam/Review of Systems Exam Vitals Vital Signs Date Temp Pulse Resp B/P (MAP) Pulse Ox O2 O2 Flow FiO2 Time Delivery Rate 08/25/18 142/89 99 14:00 (106) 08/25/18 96 22 13:00 08/25/18 98.0 Room Air 12:00 Intake and Output 08/24/18 08/24/18 08/25/18 1515:00 23:00 07:00 IntakeIntake Total 250 ml 2830 ml 1667.740 ml OutputOutput Total 200 ml 0 ml BalanceBalance 250 ml 2630 ml 1667.740 ml Results Result Diagram: 08/25/18 0430 08/25/18 0430 Results 24hrs Laboratory Tests Test 08/24/18 17:13 08/24/18 22:11 08/25/18 01:39 08/25/18 04:30 Bedside Glucose 209 274 H 204 White Blood Count 28.3 H Red Blood Count 2.26 L Hemoglobin 6.7 *L Hematocrit 19.8 L Mean Corpuscular 87.6 Volume Mean Corpuscular 29.6 Hemoglobin Mean Corpuscular 33.8 Hemoglobin Concen t Red Cell 13.1 Distribution Width Platelet Count 281 Mean Platelet 9.7 Volume Immature 2.200 H Granulocytes % Neutrophils % Segmented 86 H Neutrophils % (Manual) Band Neutrophils 6 H % (Manual) Lymphocytes % Lymphocytes % 7 L (Manual) Monocytes % Monocytes % 1 (Manual) Eosinophils % Basophils % Nucleated Red 0.0 Blood Cells % Immature 0.620 H Granulocytes # Neutrophils # Neutrophils # 24.8 H (Manual) Band Neutrophils 1.6 H # Lymphocytes 1.9 (Manual) Lymphocytes # Monocytes # Monocytes # 0.2 L (Manual) Eosinophils # Basophils # Nucleated Red Blood Cells # Platelet Estimate NORMAL Polychromasia 1+ Poikilocytosis 1+ Target Cells 1+ Sodium Level 135 Potassium Level 3.8 Chloride Level 109 Carbon Dioxide 19 L Level Anion Gap 7 Blood Urea 37 H Nitrogen Creatinine 1.99 H Est Glomerular 35 L Filtrat Rate mL/min Glucose Level 174 Calcium Level 7.6 L Phosphorus Level 3.3 Magnesium Level 1.9 Test 08/25/18 05:15 08/25/18 07:30 08/25/18 11:26 Lab Scanned BLOOD TRANSFUSIO Report N Bedside Glucose 164 161 Medications Medication Current Medications Ferrous Sulfate (Ferrous Sulfate (Ec)) 325 mg DAILY PO Last administered on 08/25/18at 08:04; Admin Dose 325 MG; Start 08/24/18 at 09:00 Linagliptin (Tradjenta) 5 mg DAILY PO Last administered on 08/25/18at 08:04; Admin Dose 5 MG; Start 08/24/18 at 09:00 Pentoxifylline (Trental) 400 mg TID PO Last administered on 08/25/18at 12:09; Admin Dose 400 MG; Start 08/24/18 at 09:00 Miscellaneous Information 1 ea NOTE XX ; Start 08/24/18 at 02:30 Glucose (Glutose) 15 gm Q15M PRN PO DECREASED GLUCOSE; Start 08/24/18 at 02:30 Glucose (Glutose) 22.5 gm Q15M PRN PO DECREASED GLUCOSE; Start 08/24/18 at 02:30 Dextrose (D50w Syringe) 25 ml Q15M PRN IV DECREASED GLUCOSE; Start 08/24/18 at 02:30 Dextrose (D50w Syringe) 50 ml Q15M PRN IV DECREASED GLUCOSE; Start 08/24/18 at 02:30 Glucagon (Glucagen) 1 mg Q15M PRN IM DECREASED GLUCOSE; Start 08/24/18 at 02:30 Glucose (Glutose) 15 gm Q15M PRN BUCCAL DECREASED GLUCOSE; Start 08/24/18 at 02:30 Sodium Chloride 1,000 ml @ 125 mls/hr Q8H IV Last administered on 08/25/18at 12:10; Admin Dose 125 MLS/HR; Start 08/24/18 at 03:00 Pantoprazole (Protonix Tab) 40 mg DAILY@06 PO Last administered on 08/25/18at 05:15; Admin Dose 40 MG; Start 08/24/18 at 06:00 Acetaminophen (Tylenol Tab) 650 mg Q6H PRN PO MILD PAIN(1-3)OR ELEVATED TEMP Last administered on 08/24/18at 14:48; Admin Dose 650 MG; Start 08/24/18 at 03:00 Ondansetron HCl (Zofran Inj) 4 mg Q6H PRN IV NAUSEA AND/OR VOMITING Last administered on 08/25/18at 09:10; Admin Dose 4 MG; Start 08/24/18 at 03:00 Miscellaneous Information (* Miscellaneous Pharmacy Order) Zosyn per pharmacy ONCE XX ; Start 08/24/18 at 03:00 Acetaminophen/ Hydrocodone Bitart ([place] (5/325)) 1 tab Q6H PRN PO MODERATE PAIN LEVEL 4-6; Start 08/24/18 at 03:00 Miscellaneous Information (Pending Santyl Order For Wound Care) This patient mora... PRN PRN XX WOUND CARE; Start 08/24/18 at 03:00 Collagenase (Santyl) 1 applic DAILY TOP Last administered on 08/25/18at 08:11; Admin Dose 1 APPLIC; Start 08/24/18 at 09:00 Collagenase (Santyl) 1 applic DAILY PRN TOP PRN; Start 08/24/18 at 09:00 Vancomycin HCl (Vanco Iv Per Pharmacy) VANCOMYCIN PER PHARMACY PER PROTOCOL XX ; Start 08/24/18 at 05:00 Vancomycin HCl 250 ml @ 125 mls/hr Q24H IVPB Last administered on 08/25/18 12:10; Admin Dose 125 MLS/HR; Start 08/24/18 at 13:00 Insulin Aspart (Novolog Insulin Pen) NOVOLOG *MILD* ALGORITHM WITH MEALS BEDTIME SC Last administered on 08/25/18 11:28; Admin Dose 1 UNIT; Start 08/24/18 at 08:00 Acetaminophen 100 ml @ 400 mls/hr Q6H PRN IVPB feb Last administered on 08/24/18 16:54; Admin Dose 400 MLS/HR; Start 08/24/18 at 17:00; Stop 08/25/18 at 16:59 Diagnostic Test (Pha) (Accu-Chek) 1 ea 02 XX Last administered on 08/25/18 01:41; Admin Dose 1 EA; Start 08/25/18 at 02:00 Sodium Hypochlorite (Dakins Diluted ()) 1 applic BID TP Last administered on 08/25/18 08:05; Admin Dose 1 APPLIC; Start 08/24/18 at 21:00 Piperacillin Sod/ Tazobactam Sod 100 ml @ 200 mls/hr Q8 IVPB Last administered on 08/25/18 13:48; Admin Dose 200 MLS/HR; Start 08/24/18 at 20:30 Norepinephrine 250 ml @ 1.875 mls/ hr TITRATE IV Last administered on 08/24/18 23:25; Admin Dose 3.75 MLS/HR; Start 08/24/18 at 22:30 Insulin Glargine (Lantus) 18 units DAILY@2000 SC ; Start 08/25/18 at 20:00 Diagnostic Test (Pha) (Accu-Chek) 1 ea 02 XX ; Start 08/26/18 at 02:00 Insulin Aspart (Novolog Insulin Pen) 3 unit WITH MEALS SC Last administered on 08/25/18 11:29; Admin Dose 3 UNIT; Start 08/25/18 at 11:30 Miscellaneous Information (*Rx Drug Level Order Reminder*) VANCO TR 08/26 AT 1100 1100 ONCE XX ; Start 08/26/18 at 11:00; Stop 08/26/18 at 11:01 ROXANNA SOMERS NP Aug 25, 2018 14:41
[2018-08-25] MEDS: INSULIN GLARGINE [LANTus] (100 UNITS/ML) SYG SC SCH (20:14)
[2018-08-26] VITALS (21 sets, daily range): BP systolic 116–152; BP diastolic 72–93; PULSE 96–112; RESP 18–29
[2018-08-26] MEDS: ACCU-CHEK XX SCH ×2 (02:00)
[2018-08-26] MEDS: PIPER-TAZO 3.375 GM IV (PMX) 100 ML IVPB SCH ×3 (05:35→21:06)
[2018-08-26] MEDS: PANTOPRAZOLE (EC) 40 MG TAB PO SCH (05:36)
[2018-08-26] MEDS ORDERED: ROCURONIUM 50 MG INJ ONE (07:00)
[2018-08-26] MEDS: INSULIN ASPART [NOVOLOG] 3 ML PEN SC SCH ×7 (07:35→20:00)
[2018-08-26] MEDS: SOD CHLORIDE 0.9% 1,000 ML IV SCH ×3 (08:16→17:53)
[2018-08-26] MEDS: PENTOXIFYLLINE (SR) 400 MG TAB PO SCH ×3 (08:18→19:55)
[2018-08-26] MEDS: FERROUS SULFATE (EC) 325 MG TAB PO SCH (08:18)
[2018-08-26] MEDS: LINAGLIPTIN 5 MG TABLET PO SCH (08:18)
[2018-08-26] MEDS: DAKINS 0.0125%(1/40) 473 ML SOLUTION TP SCH ×2 (08:19→21:06)
[2018-08-26] MEDS: COLLAGENASE 5 GM (UD JAR) TOP SCH (08:21)
--- NOTE | 2018-08-26 09:14 | PN ---
Date/Time of Note Date/Time of Note DATE: 08/26/18 TIME: 09:14 Assessment/Plan VTE Prophylaxis [place] [facility] [place] risk: 6 SCD applied [place] [facility] [place] No SCD contraindicated: low risk/ambulating Pharmacological prophylaxis: NA/contraindicated Pharm contraindication: low risk/ambulating Lines/Catheters IV Catheter Type (from [facility]): PICC Line Central line still needed: Yes Urinary Cath still in place: No Assessment/Plan Assessment/Plan 52-year-old male with 1 septic shock secondary to right foot infection with possible soft tissue infection, necrotizing fasciitis (?). Now with gram-negative bacteremia + 2. Diabetes. 3. Acute kidney injury on chronic kidney disease. 4. Hyponatremia. 5. Hypotension, likely secondary to #1. 6. Right lower extremity foul smelling wounds. 7. Anemia, likely anemia of chronic disease, no blood loss no history of GI bleeding 8 Leukocytosis Plan -SP 2 units of blood yesterday - off pressors - cw vancomyci - bka today - FU ID recs - NS at 125 cc/hr - hold bp meds - gi/dvt PROPHYLAXSIS Result Diagram: 08/26/18 0330 08/26/18 0330 Results 24hrs Laboratory Tests Test 08/25/18 11:26 08/25/18 16:48 08/25/18 20:06 08/26/18 01:35 Bedside Glucose 161 128 153 153 Test 08/26/18 03:30 08/26/18 05:00 08/26/18 08:11 White Blood Count 33.7 H Red Blood Count 3.41 #L Hemoglobin 10.0 #L Hematocrit 29.5 #L Mean Corpuscular 86.5 Volume Mean Corpuscular 29.3 Hemoglobin Mean Corpuscular 33.9 Hemoglobin Concen t Red Cell 14.0 Distribution Width Platelet Count 339 # Mean Platelet 10.0 Volume Immature 2.000 H Granulocytes % Neutrophils % Segmented 81 H Neutrophils % (Manual) Band Neutrophils 8 H % (Manual) Lymphocytes % Lymphocytes % 5 L (Manual) Reactive 2 H Lymphocytes % (Manual) Monocytes % Monocytes % 4 (Manual) Eosinophils % Basophils % Nucleated Red 0.0 Blood Cells % Immature 0.690 H Granulocytes # Neutrophils # Neutrophils # 28.2 H (Manual) Band Neutrophils 2.6 H # Lymphocytes 1.6 (Manual) Lymphocytes # Reactive 0.6 H Lymphocytes # Monocytes # Monocytes # 1.3 H (Manual) Eosinophils # Basophils # Nucleated Red Blood Cells # Platelet Estimate NORMAL Polychromasia 1+ Poikilocytosis 3+ Sodium Level 138 Potassium Level 3.5 Chloride Level 110 Carbon Dioxide 17 L Level Anion Gap 11 Blood Urea 31 H Nitrogen Creatinine 1.83 H Est Glomerular 39 L Filtrat Rate mL/min Glucose Level 98 # Calcium Level 8.2 L Phosphorus Level 3.4 Magnesium Level 2.0 Lab Scanned BLOOD TRANSFUSION Report Bedside Glucose 87 Subjective 24 Hr Interval Summary Free Text/Dictation off pressors hb 10 bka today Exam/Review of Systems Exam Vitals Vital Signs Date Temp Pulse Resp B/P (MAP) Pulse Ox O2 O2 Flow FiO2 Time Delivery Rate 08/26/18 97 08:00 08/26/18 22 130/75 94 Room Air 06:00 (93) 08/26/18 99.4 04:00 Intake and Output 08/25/18 08/25/18 08/26/18 1515:00 23:00 07:00 IntakeIntake Total 1500 ml 1610 ml 1275 ml OutputOutput Total 400 ml 750 ml 350 ml BalanceBalance 1100 ml 860 ml 925 ml Exam Exam awake,alert extensive gangrenous changes of the right foot Results Results 24hrs Laboratory Tests Test 08/25/18 11:26 08/25/18 16:48 08/25/18 20:06 08/26/18 01:35 Bedside Glucose 161 128 153 153 Test 08/26/18 03:30 08/26/18 05:00 08/26/18 08:11 White Blood Count 33.7 H Red Blood Count 3.41 #L Hemoglobin 10.0 #L Hematocrit 29.5 #L Mean Corpuscular 86.5 Volume Mean Corpuscular 29.3 Hemoglobin Mean Corpuscular 33.9 Hemoglobin Concen t Red Cell 14.0 Distribution Width Platelet Count 339 # Mean Platelet 10.0 Volume Immature 2.000 H Granulocytes % Neutrophils % Segmented 81 H Neutrophils % (Manual) Band Neutrophils 8 H % (Manual) Lymphocytes % Lymphocytes % 5 L (Manual) Reactive 2 H Lymphocytes % (Manual) Monocytes % Monocytes % 4 (Manual) Eosinophils % Basophils % Nucleated Red 0.0 Blood Cells % Immature 0.690 H Granulocytes # Neutrophils # Neutrophils # 28.2 H (Manual) Band Neutrophils 2.6 H # Lymphocytes 1.6 (Manual) Lymphocytes # Reactive 0.6 H Lymphocytes # Monocytes # Monocytes # 1.3 H (Manual) Eosinophils # Basophils # Nucleated Red Blood Cells # Platelet Estimate NORMAL Polychromasia 1+ Poikilocytosis 3+ Sodium Level 138 Potassium Level 3.5 Chloride Level 110 Carbon Dioxide 17 L Level Anion Gap 11 Blood Urea 31 H Nitrogen Creatinine 1.83 H Est Glomerular 39 L Filtrat Rate mL/min Glucose Level 98 # Calcium Level 8.2 L Phosphorus Level 3.4 Magnesium Level 2.0 Lab Scanned BLOOD TRANSFUSION Report Bedside Glucose 87 Medications Medication Current Medications Ferrous Sulfate (Ferrous Sulfate (Ec)) 325 mg DAILY PO Last administered on 08/25/18at 08:04; Admin Dose 325 MG; Start 08/24/18 at 09:00 Linagliptin (Tradjenta) 5 mg DAILY PO Last administered on 08/25/18at 08:04; Admin Dose 5 MG; Start 08/24/18 at 09:00 Pentoxifylline (Trental) 400 mg TID PO Last administered on 08/25/18at 20:12; Admin Dose 400 MG; Start 08/24/18 at 09:00 Miscellaneous Information 1 ea NOTE XX ; Start 08/24/18 at 02:30 Glucose (Glutose) 15 gm Q15M PRN PO DECREASED GLUCOSE; Start 08/24/18 at 02:30 Glucose (Glutose) 22.5 gm Q15M PRN PO DECREASED GLUCOSE; Start 08/24/18 at 02:30 Dextrose (D50w Syringe) 25 ml Q15M PRN IV DECREASED GLUCOSE; Start 08/24/18 at 02:30 Dextrose (D50w Syringe) 50 ml Q15M PRN IV DECREASED GLUCOSE; Start 08/24/18 at 02:30 Glucagon (Glucagen) 1 mg Q15M PRN IM DECREASED GLUCOSE; Start 08/24/18 at 02:30 Glucose (Glutose) 15 gm Q15M PRN BUCCAL DECREASED GLUCOSE; Start 08/24/18 at 02:30 Sodium Chloride 1,000 ml @ 125 mls/hr Q8H IV Last administered on 08/26/18at 08:16; Admin Dose 125 MLS/HR; Start 08/24/18 at 03:00 Pantoprazole (Protonix Tab) 40 mg DAILY@06 PO Last administered on 08/26/18at 05:36; Admin Dose 40 MG; Start 08/24/18 at 06:00 Acetaminophen (Tylenol Tab) 650 mg Q6H PRN PO MILD PAIN(1-3)OR ELEVATED TEMP Last administered on 08/24/18 14:48; Admin Dose 650 MG; Start 08/24/18 at 03:00 Ondansetron HCl (Zofran Inj) 4 mg Q6H PRN IV NAUSEA AND/OR VOMITING Last administered on 08/25/18 09:10; Admin Dose 4 MG; Start 08/24/18 at 03:00 Miscellaneous Information (* Miscellaneous Pharmacy Order) Zosyn per pharmacy ONCE XX ; Start 08/24/18 at 03:00 Acetaminophen/ Hydrocodone Bitart ([place] (5/325)) 1 tab Q6H PRN PO MODERATE PAIN LEVEL 4-6; Start 08/24/18 at 03:00 Miscellaneous Information (Pending Santyl Order For Wound Care) This patient mora... PRN PRN XX WOUND CARE; Start 08/24/18 at 03:00 Collagenase (Santyl) 1 applic DAILY TOP Last administered on 08/26/18 08:21; Admin Dose 1 APPLIC; Start 08/24/18 at 09:00 Collagenase (Santyl) 1 applic DAILY PRN TOP PRN; Start 08/24/18 at 09:00 Vancomycin HCl (Vanco Iv Per Pharmacy) VANCOMYCIN PER PHARMACY PER PROTOCOL XX ; Start 08/24/18 at 05:00 Vancomycin HCl 250 ml @ 125 mls/hr Q24H IVPB Last administered on 08/25/18 12:10; Admin Dose 125 MLS/HR; Start 08/24/18 at 13:00 Insulin Aspart (Novolog Insulin Pen) NOVOLOG *MILD* ALGORITHM WITH MEALS BEDTIME SC Last administered on 08/25/18 11:28; Admin Dose 1 UNIT; Start 08/24/18 at 08:00 Diagnostic Test (Pha) (Accu-Chek) 1 ea 02 XX Last administered on 08/25/18 01:41; Admin Dose 1 EA; Start 08/25/18 at 02:00 Sodium Hypochlorite (Dakins Diluted ()) 1 applic BID TP Last administered on 08/26/18 08:19; Admin Dose 1 APPLIC; Start 08/24/18 at 21:00 Piperacillin Sod/ Tazobactam Sod 100 ml @ 200 mls/hr Q8 IVPB Last administered on 08/26/18at 05:35; Admin Dose 200 MLS/HR; Start 08/24/18 at 20:30 Norepinephrine 250 ml @ 1.875 mls/ hr TITRATE IV Last administered on 08/24/18at 23:25; Admin Dose 3.75 MLS/HR; Start 08/24/18 at 22:30 Insulin Glargine (Lantus) 18 units DAILY@2000 SC Last administered on 08/25/18at 20:14; Admin Dose 18 UNITS; Start 08/25/18 at 20:00 Diagnostic Test (Pha) (Accu-Chek) 1 ea 02 XX ; Start 08/26/18 at 02:00 Insulin Aspart (Novolog Insulin Pen) 3 unit WITH MEALS SC Last administered on 08/25/18at 11:29; Admin Dose 3 UNIT; Start 08/25/18 at 11:30 Miscellaneous Information (*Rx Drug Level Order Reminder*) CAROLYN TR 08/26 AT 1100 1100 ONCE XX ; Start 08/26/18 at 11:00; Stop 08/26/18 at 11:01 GINA SUTTON MD August 26, 2018 09:14
--- NOTE | 2018-08-26 13:37 | CONS ---
Assessment/Plan Assessment/Plan Hospital Course (Demo Recall) No acute changes overnight. Patient is sleeping, looks comfortable, T-max 99.8. BUN 31 creatinine 1.83 WBC 33.7 H&H 10 and 29.5 platelets 339 bands 8 Microbiology: Blood culture on admission grew VRE susceptible to ampicillin and gram-negative rods, repeat blood cultures and wound cultures pending Indwelling's: Right upper extremity PICC line Antimicrobials: Zosyn, vancomycin Physical examination: This is a well-developed well-nourished middle-aged male who is in no distress. Head atraumatic normocephalic sclera nonicteric. Neck is supple. Chest rise symmetrical, breath sounds clear. Heart: S1-S2. Abdomen soft bowel sounds present. Extremities with bilateral lower extremity dressings present with purulent drainage and foul order also patient has gangrene all stools Assessment: 1. Severe sepsis, present on admission 2. Bilateral lower extremity's gangrene/osteomyelitis 3. Peripheral arterial disease 4. Diabetes 5. Acute kidney injury 6. Anemia Plan: Patient is clinically stable, continue antibiotics follow repeat blood cultures and wound culture, scheduled for right lower extremity amputation this afternoon Consultation Date/Type/Reason Admit Date/Time Aug 23, 2018 at 21:27 Initial Consult Date 08/25/18 Type of Consult id Date/Time of Note DATE: 08/26/18 TIME: 13:35 Exam/Review of Systems Exam Vitals Vital Signs Date Temp Pulse Resp B/P (MAP) Pulse Ox O2 O2 Flow FiO2 Time Delivery Rate 08/26/18 99 22 140/87 99 Room Air 10:00 (104) 08/26/18 99.8 08:00 Intake and Output 08/25/18 08/25/18 08/26/18 1515:00 23:00 07:00 IntakeIntake Total 1500 ml 1610 ml 1400 ml OutputOutput Total 400 ml 750 ml 350 ml BalanceBalance 1100 ml 860 ml 1050 ml Results Result Diagram: 08/26/18 0330 08/26/18 0330 Results 24hrs Laboratory Tests Test 08/25/18 16:48 08/25/18 20:06 08/26/18 01:35 08/26/18 03:30 Bedside Glucose 128 153 153 White Blood Count 33.7 H Red Blood Count 3.41 #L Hemoglobin 10.0 #L Hematocrit 29.5 #L Mean Corpuscular 86.5 Volume Mean Corpuscular 29.3 Hemoglobin Mean Corpuscular 33.9 Hemoglobin Concent Red Cell 14.0 Distribution Width Platelet Count 339 # Mean Platelet 10.0 Volume Immature 2.000 H Granulocytes % Neutrophils % Segmented 81 H Neutrophils % (Manual) Band Neutrophils % 8 H (Manual) Lymphocytes % Lymphocytes % 5 L (Manual) Reactive 2 H Lymphocytes % (Manual) Monocytes % Monocytes % 4 (Manual) Eosinophils % Basophils % Nucleated Red 0.0 Blood Cells % Immature 0.690 H Granulocytes # Neutrophils # Neutrophils # 28.2 H (Manual) Band Neutrophils # 2.6 H Lymphocytes 1.6 (Manual) Lymphocytes # Reactive 0.6 H Lymphocytes # Monocytes # Monocytes # 1.3 H (Manual) Eosinophils # Basophils # Nucleated Red Blood Cells # Platelet Estimate NORMAL Polychromasia 1+ Poikilocytosis 3+ Sodium Level 138 Potassium Level 3.5 Chloride Level 110 Carbon Dioxide 17 L Level Anion Gap 11 Blood Urea 31 H Nitrogen Creatinine 1.83 H Est Glomerular 39 L Filtrat Rate mL/min Glucose Level 98 # Calcium Level 8.2 L Phosphorus Level 3.4 Magnesium Level 2.0 Test 08/26/18 05:00 08/26/18 08:11 08/26/18 12:13 08/26/18 13:32 Lab Scanned BLOOD TRANSFUSION Report Bedside Glucose 87 87 Vancomycin Level 20.0 Trough Medications Medication Current Medications Ferrous Sulfate (Ferrous Sulfate (Ec)) 325 mg DAILY PO Last administered on 08/25/18at 08:04; Admin Dose 325 MG; Start 08/24/18 at 09:00 Linagliptin (Tradjenta) 5 mg DAILY PO Last administered on 08/25/18at 08:04; Admin Dose 5 MG; Start 08/24/18 at 09:00 Pentoxifylline (Trental) 400 mg TID PO Last administered on 08/25/18at 20:12; Admin Dose 400 MG; Start 08/24/18 at 09:00 Miscellaneous Information 1 ea NOTE XX ; Start 08/24/18 at 02:30 Glucose (Glutose) 15 gm Q15M PRN PO DECREASED GLUCOSE; Start 08/24/18 at 02:30 Glucose (Glutose) 22.5 gm Q15M PRN PO DECREASED GLUCOSE; Start 08/24/18 at 02:30 Dextrose (D50w Syringe) 25 ml Q15M PRN IV DECREASED GLUCOSE; Start 08/24/18 at 02:30 Dextrose (D50w Syringe) 50 ml Q15M PRN IV DECREASED GLUCOSE; Start 08/24/18 at 02:30 Glucagon (Glucagen) 1 mg Q15M PRN IM DECREASED GLUCOSE; Start 08/24/18 at 02:30 Glucose (Glutose) 15 gm Q15M PRN BUCCAL DECREASED GLUCOSE; Start 08/24/18 at 02:30 Sodium Chloride 1,000 ml @ 125 mls/hr Q8H IV Last administered on 08/26/18at 08:16; Admin Dose 125 MLS/HR; Start 08/24/18 at 03:00 Pantoprazole (Protonix Tab) 40 mg DAILY@06 PO Last administered on 08/26/18at 05:36; Admin Dose 40 MG; Start 08/24/18 at 06:00 Acetaminophen (Tylenol Tab) 650 mg Q6H PRN PO MILD PAIN(1-3)OR ELEVATED TEMP Last administered on 08/24/18at 14:48; Admin Dose 650 MG; Start 08/24/18 at 03:00 Ondansetron HCl (Zofran Inj) 4 mg Q6H PRN IV NAUSEA AND/OR VOMITING Last administered on 08/25/18at 09:10; Admin Dose 4 MG; Start 08/24/18 at 03:00 Miscellaneous Information (* Miscellaneous Pharmacy Order) Zosyn per pharmacy ONCE XX ; Start 08/24/18 at 03:00 Acetaminophen/ Hydrocodone Bitart ([place] (5/325)) 1 tab Q6H PRN PO MODERATE PAIN LEVEL 4-6; Start 08/24/18 at 03:00 Miscellaneous Information (Pending Santyl Order For Wound Care) This patient mora... PRN PRN XX WOUND CARE; Start 08/24/18 at 03:00 Collagenase (Santyl) 1 applic DAILY TOP Last administered on 08/26/18at 08:21; Admin Dose 1 APPLIC; Start 08/24/18 at 09:00 Collagenase (Santyl) 1 applic DAILY PRN TOP PRN; Start 08/24/18 at 09:00 Vancomycin HCl (Vanco Iv Per Pharmacy) VANCOMYCIN PER PHARMACY PER PROTOCOL XX ; Start 08/24/18 at 05:00 Insulin Aspart (Novolog Insulin Pen) NOVOLOG *MILD* ALGORITHM WITH MEALS BEDTIME SC Last administered on 08/25/18 11:28; Admin Dose 1 UNIT; Start 08/24/18 at 08:00 Diagnostic Test (Pha) (Accu-Chek) 1 ea 02 XX Last administered on 08/25/18at 01:41; Admin Dose 1 EA; Start 08/25/18 at 02:00 Sodium Hypochlorite (Dakins Diluted ()) 1 applic BID TP Last administered on 08/26/18 08:19; Admin Dose 1 APPLIC; Start 08/24/18 at 21:00 Piperacillin Sod/ Tazobactam Sod 100 ml @ 200 mls/hr Q8 IVPB Last administered on 08/26/18 05:35; Admin Dose 200 MLS/HR; Start 08/24/18 at 20:30 Norepinephrine 250 ml @ 1.875 mls/ hr TITRATE IV Last administered on 08/24/18at 23:25; Admin Dose 3.75 MLS/HR; Start 08/24/18 at 22:30 Insulin Glargine (Lantus) 18 units DAILY@2000 SC Last administered on 08/25/18 20:14; Admin Dose 18 UNITS; Start 08/25/18 at 20:00 Diagnostic Test (Pha) (Accu-Chek) 1 ea XX ; Start 08/26/18 at 02:00 Insulin Aspart (Novolog Insulin Pen) 3 unit WITH MEALS SC Last administered on 08/25/18 11:29; Admin Dose 3 UNIT; Start 08/25/18 at 11:30 ROXANNA SOMERS NP August 26, 2018 13:37
--- NOTE | 2018-08-26 19:50 | HPN ---
Date/Time of Note Date/Time of Note DATE: 08/26/18 TIME: 19:50 Interval H&P Admission Note Pt. seen H&P reviewed: No system changes DONTRELL RODRIGUEZ MD August 26, 2018 19:50
[2018-08-26] MEDS: DEXTROSE 5%-0.45% NACL 1,000 ML IV SCH (19:52)
[2018-08-26] MEDS: INSULIN GLARGINE [LANTus] (100 UNITS/ML) SYG SC SCH (19:59)
[2018-08-26] MEDS: ACETAMINOPHEN 325 MG TAB PO PRN (21:09)
--- NOTE | 2018-08-26 21:51 | PREAC ---
Date/Time of Note Date/Time of Note DATE: 08/26/18 TIME: 21:49 Anesthesia Eval and Record Evaluation Time Pre-Procedure Interview DATE: 08/26/18 TIME: 21:49 Age 52 Sex male NPO: 8 hrs Preoperative diagnosis right foot gangrene Planned procedure right below knee amputation Past Medical History Past Medical History: Includes Cardio: HTN, Dyslipidemia Endo: Diabetes Neuro: Peripheral neuropathy Renal: DANIELLE, CKD Heme: Anemia Infection(s): Other (sepsis) Surgery & Anesthesia Issues No known issue Meds Anticoagulation: No Beta Sadie within 24 hr: No Reason Beta Sadie not given: Pt. not on B-Sadie Active Scripts Insulin Aspart* (Novolog Insulin Pen*) 100 Unit/Ml Soln, 0 UNIT SC AC MEALS AND BEDTIME for 30 Days Prov:TEODORO RIDER 07/19/18 Clonidine Hcl* (Catapres*) 0.2 Mg Tablet, 0.2 MG PO TID for 30 Days, TAB Prov:TEODORO RIDER 07/19/18 Amlodipine Besylate* (Amlodipine Besylate*) 5 Mg Tablet, 10 MG PO DAILY for 30 Days, TAB Prov:TEODORO RIDER 07/19/18 Pentoxifylline* (Pentoxifylline*) 400 Mg Tablet.sa, 400 MG PO TID for 30 Days Prov:TEODORO RIDER 07/19/18 Ferrous Sulfate* (Ferrous Sulfate*) 325 Mg Tabec, 325 MG PO DAILY for 30 Days, TAB Prov:TEODORO RIDER 07/19/18 Ciprofloxacin Hcl* (Ciprofloxacin Hcl*) 500 Mg Tablet, 500 MG PO BID@18 for 42 Days, TAB Prov:TEODORO RIDER 07/19/18 Linagliptin (TRADJENTA) 5 Mg Tablet, 5 MG PO DAILY for 30 Days, TAB Prov:GINA SUTTON MD 03/18/18 Current Medications Ferrous Sulfate (Ferrous Sulfate (Ec)) 325 mg DAILY PO Last administered on 08/25/18at 08:04; Admin Dose 325 MG; Start 08/24/18 at 09:00 Linagliptin (Tradjenta) 5 mg DAILY PO Last administered on 08/25/18at 08:04; Admin Dose 5 MG; Start 08/24/18 at 09:00 Pentoxifylline (Trental) 400 mg TID PO Last administered on 08/26/18at 19:55; Admin Dose 400 MG; Start 08/24/18 at 09:00 Miscellaneous Information 1 ea NOTE XX ; Start 08/24/18 at 02:30 Glucose (Glutose) 15 gm Q15M PRN PO DECREASED GLUCOSE; Start 08/24/18 at 02:30 Glucose (Glutose) 22.5 gm Q15M PRN PO DECREASED GLUCOSE; Start 08/24/18 at 02:30 Dextrose (D50w Syringe) 25 ml Q15M PRN IV DECREASED GLUCOSE; Start 08/24/18 at 02:30 Dextrose (D50w Syringe) 50 ml Q15M PRN IV DECREASED GLUCOSE; Start 08/24/18 at 02:30 Glucagon (Glucagen) 1 mg Q15M PRN IM DECREASED GLUCOSE; Start 08/24/18 at 02:30 Glucose (Glutose) 15 gm Q15M PRN BUCCAL DECREASED GLUCOSE; Start 08/24/18 at 02:30 Pantoprazole (Protonix Tab) 40 mg DAILY@06 PO Last administered on 08/26/18at 05:36; Admin Dose 40 MG; Start 08/24/18 at 06:00 Acetaminophen (Tylenol Tab) 650 mg Q6H PRN PO MILD PAIN(1-3)OR ELEVATED TEMP Last administered on 08/26/18at 21:09; Admin Dose 650 MG; Start 08/24/18 at 03:00 Ondansetron HCl (Zofran Inj) 4 mg Q6H PRN IV NAUSEA AND/OR VOMITING Last administered on 08/25/18at 09:10; Admin Dose 4 MG; Start 08/24/18 at 03:00 Miscellaneous Information (* Miscellaneous Pharmacy Order) Zosyn per pharmacy ONCE XX ; Start 08/24/18 at 03:00 Acetaminophen/ Hydrocodone Bitart ([place] (5/325)) 1 tab Q6H PRN PO MODERATE PAIN LEVEL 4-6; Start 08/24/18 at 03:00 Miscellaneous Information (Pending Santyl Order For Wound Care) This patient mora... PRN PRN XX WOUND CARE; Start 08/24/18 at 03:00 Collagenase (Santyl) 1 applic DAILY TOP Last administered on 08/26/18at 08:21; Admin Dose 1 APPLIC; Start 08/24/18 at 09:00 Collagenase (Santyl) 1 applic DAILY PRN TOP PRN; Start 08/24/18 at 09:00 Vancomycin HCl (Vanco Iv Per Pharmacy) VANCOMYCIN PER PHARMACY PER PROTOCOL XX ; Start 08/24/18 at 05:00 Insulin Aspart (Novolog Insulin Pen) NOVOLOG *MILD* ALGORITHM WITH MEALS BEDTIME SC Last administered on 08/25/18 11:28; Admin Dose 1 UNIT; Start 08/24/18 at 08:00 Diagnostic Test (Pha) (Accu-Chek) 1 ea 02 XX Last administered on 08/25/18 01:41; Admin Dose 1 EA; Start 08/25/18 at 02:00 Sodium Hypochlorite (Dakins Diluted ()) 1 applic BID TP Last administered on 08/26/18 21:06; Admin Dose 1 APPLIC; Start 08/24/18 at 21:00 Piperacillin Sod/ Tazobactam Sod 100 ml @ 200 mls/hr Q8 IVPB Last administered on 08/26/18 21:06; Admin Dose 200 MLS/HR; Start 08/24/18 at 20:30 Norepinephrine 250 ml @ 1.875 mls/ hr TITRATE IV Last administered on 08/24/18 23:25; Admin Dose 3.75 MLS/HR; Start 08/24/18 at 22:30 Insulin Glargine (Lantus) 18 units DAILY@2000 SC Last administered on 08/26/18 19:59; Admin Dose 18 UNITS; Start 08/25/18 at 20:00 Diagnostic Test (Pha) (Accu-Chek) 1 ea 02 XX ; Start 08/26/18 at 02:00 Insulin Aspart (Novolog Insulin Pen) 3 unit WITH MEALS SC Last administered on 08/25/18 11:29; Admin Dose 3 UNIT; Start 08/25/18 at 11:30 Vancomycin HCl 1.5 gm/Sodium Chloride 250 ml @ 83.333 mls/ hr Q48H IVPB ; Start 08/27/18 at 12:00 Dextrose/Sodium Chloride 1,000 ml @ 70 mls/hr [id number] IV Last administered on 08/26/18at 19:52; Admin Dose 70 MLS/HR; Start 08/26/18 at 19:30 Meds reviewed: Yes Allergies Coded Allergies: No Known Allergy (Unverified , 07/04/18) Allergies Reviewed: Yes Labs/Studies Labs Reviewed: Reviewed by anesthesiologist Result Diagram: 08/26/18 0330 08/26/18 0330 Laboratory Tests 08/26/18 03:30 test: N/A Studies: ECG, CXR Pre-procedure Exam Last vitals Vital Signs Date Temp Pulse Resp B/P (MAP) Pulse Ox O2 O2 Flow FiO2 Time Delivery Rate 08/26/18 100.1 21:09 08/26/18 106 26 141/80 99 Room Air 20:00 (100) Airway: Adequate mouth opening, Adequate thyromental dist Mallampati: Mallampati II Teeth: Normal Lung: Normal Heart: Normal ASA Physical Status ASA physical status: 3 Emergency: None Planned Anesthetic General/MAC: ETT Planned Pain Management Parenteral pain med Pre-operative Attestations Prior to commencing anesthesia and surgery, the patient was re-evaluated, there was verification of: *The patient's identity *The results of appropriate recent lab work and preoperative vital signs *The above evaluation not changing prior to induction *Anesthetic plan, risk benefits, alternative and complications discussed with patient/family; questions answered; patient/family understands, accepts and wishes to proceed. RHONA LOZA August 26, 2018 21:51
--- NOTE | 2018-08-26 22:12 | HPN ---
Date/Time of Note Date/Time of Note DATE: 08/26/18 TIME: 22:12 Interval H&P Admission Note Pt. seen H&P reviewed: No system changes DONTRELL RODRIGUEZ MD August 26, 2018 22:12
[2018-08-26] MEDS ORDERED: PROPOFOL 20 ML ONE (22:28)
[2018-08-26] MEDS ORDERED: POLYMYXIN/BACITRACIN 1L IRRIG IRR ONE (23:09)
[2018-08-26] MEDS ORDERED: LIDOCAINE 2% (SDV) 5 ML INJ ONE (23:15)
[2018-08-26] MEDS ORDERED: DEXAMETHASONE 4 MG/ML 5 ML INJ ONE (23:15)
[2018-08-26] MEDS ORDERED: SUGAMMADEX SODIUM 200 MG/2 ML VIAL IV ONE (23:29)
--- NOTE | 2018-08-26 23:33 | OPR ---
Date/Time of Note Date/Time of Note DATE: 08/26/18 TIME: 23:31 Operative Report Procedure Date: August 26, 2018 Preoperative Diagnosis Gangrene of the right foot Postoperative Diagnosis Same Operation/Procedure Performed Right below-knee amputation Surgeon see signature line Sap Pi Architect None Anesthesia Type: general Estimated Blood Loss: 50 - 100 ml's Transfusion none Specimen Right leg Grafts/Implants none Complications none Pt Condition Post Procedure: critical Disposition: PACU Indications 52-year-old male with a history of hypertension diabetes peripheral vascular disease gangrene of the right foot extending into the ankle who is undergoing a right below-knee amputation patient has had an angiogram which shows no revascularizable targets for bypass surgery Procedure Description Patient was placed in supine position per millimeters of fashion timeout was called antibiotics was given I made a rendered right below knee incision 10 cm below the right knee with a posterior flap incision was taken down to subtendinous tissue was broached which was then opened using electrocautery soleus and gastrocnemius muscles were incised using electrocautery the tibial arteries and veins were ligated using 2-0 Vicryl sutures the tibial bone and the fibular bone was transected 3 cm proximal to the skin incision using electric saw the specimen was removed the wound was irrigated using antibiotic solution the fascial layer of the right leg was reapproximated using 0 Vicryl suture in interrupted fashion the skin was stapled together appropriate dressings applied patient tolerated procedure DONTRELL RODRIGUEZ MD August 26, 2018 23:33
[2018-08-27] VITALS (14 sets, daily range): BP systolic 101–136; BP diastolic 69–89; PULSE 80–91; RESP 15–24
[2018-08-27] MEDS: ACCU-CHEK XX SCH ×2 (02:00)
[2018-08-27] MEDS: DEXTROSE 5%-0.45% NACL 1,000 ML IV SCH (02:09)
[2018-08-27] MEDS: PANTOPRAZOLE (EC) 40 MG TAB PO SCH (06:18)
[2018-08-27] MEDS: PIPER-TAZO 3.375 GM IV (PMX) 100 ML IVPB SCH ×3 (06:19→21:19)
[2018-08-27] MEDS: INSULIN ASPART [NOVOLOG] 3 ML PEN SC SCH ×7 (07:47→21:05)
[2018-08-27] MEDS: COLLAGENASE 5 GM (UD JAR) TOP SCH (08:26)
[2018-08-27] MEDS: DAKINS 0.0125%(1/40) 473 ML SOLUTION TP SCH ×2 (08:27→21:14)
[2018-08-27] MEDS: LINAGLIPTIN 5 MG TABLET PO SCH (08:27)
[2018-08-27] MEDS: FERROUS SULFATE (EC) 325 MG TAB PO SCH (08:27)
[2018-08-27] MEDS: PENTOXIFYLLINE (SR) 400 MG TAB PO SCH ×3 (08:27→21:02)
--- NOTE | 2018-08-27 09:09 | PN ---
Date/Time of Note Date/Time of Note DATE: 08/27/18 TIME: 09:08 Assessment/Plan VTE Prophylaxis Risk score (from [facility] [place])>0 risk: 7 SCD applied (from [facility] [place]): No SCD contraindicated: low risk/ambulating Pharmacological prophylaxis: NA/contraindicated Pharm contraindication: low risk/ambulating Lines/Catheters IV Catheter Type (from [facility]): PICC Line Central line still needed: Yes Urinary Cath still in place: No Assessment/Plan Assessment/Plan 52-year-old male with 1 septic shock secondary to right foot infection with possible soft tissue infection, necrotizing fasciitis (?). Now with gram-negative bacteremia + sp Rt BKA on 08/26/18 2. Diabetes. 3. Acute kidney injury on chronic kidney disease. 4. Hyponatremia. 5. Hypotension, likely secondary to #1. 6. Right lower extremity foul smelling wounds. 7. Anemia, likely anemia of chronic disease, no blood loss no history of GI bleeding 8 Leukocytosis 9 Metabolic acidosis Plan -SP 2 units of blood yesterday> HB 7.7 - off pressors, transfer med surg - cw vancomycin/zosyn WBC trending down - FU ID recs - cw NS - Repeat H/H - CW Lantus/ meatime insulin - hold bp meds - gi/dvt PROPHYLAXSIS Result Diagram: 08/27/18 0500 08/27/18 0500 Results 24hrs Laboratory Tests Test 08/26/18 12:13 08/26/18 13:32 08/26/18 17:52 08/26/18 19:57 Vancomycin Level Trough 20.0 Bedside Glucose 87 71 121 Test 08/27/18 02:12 08/27/18 05:00 08/27/18 07:42 Bedside Glucose 119 210 White Blood Count 23.5 #H Red Blood Count 2.60 #L Hemoglobin 7.7 #L Hematocrit 22.9 #L Mean Corpuscular Volume 88.1 Mean Corpuscular 29.6 Hemoglobin Mean Corpuscular 33.6 Hemoglobin Concent Red Cell Distribution 14.3 Width Platelet Count 292 Mean Platelet Volume 9.4 Immature Granulocytes % 2.100 H Neutrophils % Segmented Neutrophils 95 H % (Manual) Band Neutrophils % 4 (Manual) Lymphocytes % Lymphocytes % (Manual) 1 L Monocytes % Eosinophils % Basophils % Nucleated Red Blood 0.0 Cells % Immature Granulocytes # 0.490 H Neutrophils # Neutrophils # (Manual) 22.5 H Band Neutrophils # 0.9 H Lymphocytes (Manual) 0.2 L Lymphocytes # Monocytes # Eosinophils # Basophils # Nucleated Red Blood Cells # Platelet Estimate NORMAL Poikilocytosis 2+ Sodium Level 138 Potassium Level 4.0 Chloride Level 113 H Carbon Dioxide Level 17 L Anion Gap 8 Blood Urea Nitrogen 30 H Creatinine 1.90 H Est Glomerular Filtrat 37 L Rate mL/min Glucose Level 180 Calcium Level 7.7 L Total Bilirubin 0.3 Direct Bilirubin 0.00 Indirect Bilirubin 0.3 Aspartate Amino 23 Transf (AST/SGOT) Alanine 22 Aminotransferase (ALT/SG PT) Alkaline Phosphatase 153 H Total Protein 5.3 L Albumin 2.1 L Globulin 3.20 Albumin/Globulin Ratio 0.65 Subjective 24 Hr Interval Summary Free Text/Dictation s/p RT BKA off pressors Exam/Review of Systems Exam Vitals Vital Signs Date Temp Pulse Resp B/P (MAP) Pulse Ox O2 O2 Flow FiO2 Time Delivery Rate 08/27/18 97.2 91 15 115/85 99 Room Air 08:00 (95) Intake and Output 08/26/18 08/26/18 08/27/18 1515:00 23:00 07:00 IntakeIntake Total 1000.00 ml 677 ml 1880 ml OutputOutput Total 650 ml 700 ml 350 ml BalanceBalance 350.00 ml -23 ml 1530 ml Exam awake,alert rt bka Results Results 24hrs Laboratory Tests Test 08/26/18 12:13 08/26/18 13:32 08/26/18 17:52 08/26/18 19:57 Vancomycin Level Trough 20.0 Bedside Glucose 87 71 121 Test 08/27/18 02:12 08/27/18 05:00 08/27/18 07:42 Bedside Glucose 119 210 White Blood Count 23.5 #H Red Blood Count 2.60 #L Hemoglobin 7.7 #L Hematocrit 22.9 #L Mean Corpuscular Volume 88.1 Mean Corpuscular 29.6 Hemoglobin Mean Corpuscular 33.6 Hemoglobin Concent Red Cell Distribution 14.3 Width Platelet Count 292 Mean Platelet Volume 9.4 Immature Granulocytes % 2.100 H Neutrophils % Segmented Neutrophils 95 H % (Manual) Band Neutrophils % 4 (Manual) Lymphocytes % Lymphocytes % (Manual) 1 L Monocytes % Eosinophils % Basophils % Nucleated Red Blood 0.0 Cells % Immature Granulocytes # 0.490 H Neutrophils # Neutrophils # (Manual) 22.5 H Band Neutrophils # 0.9 H Lymphocytes (Manual) 0.2 L Lymphocytes # Monocytes # Eosinophils # Basophils # Nucleated Red Blood Cells # Platelet Estimate NORMAL Poikilocytosis 2+ Sodium Level 138 Potassium Level 4.0 Chloride Level 113 H Carbon Dioxide Level 17 L Anion Gap 8 Blood Urea Nitrogen 30 H Creatinine 1.90 H Est Glomerular Filtrat 37 L Rate mL/min Glucose Level 180 Calcium Level 7.7 L Total Bilirubin 0.3 Direct Bilirubin 0.00 Indirect Bilirubin 0.3 Aspartate Amino 23 Transf (AST/SGOT) Alanine 22 Aminotransferase (ALT/SG PT) Alkaline Phosphatase 153 H Total Protein 5.3 L Albumin 2.1 L Globulin 3.20 Albumin/Globulin Ratio 0.65 Medications Medication Current Medications Ferrous Sulfate (Ferrous Sulfate (Ec)) 325 mg DAILY PO Last administered on 08/27/18at 08:27; Admin Dose 325 MG; Start 08/24/18 at 09:00 Linagliptin (Tradjenta) 5 mg DAILY PO Last administered on 08/27/18at 08:27; Admin Dose 5 MG; Start 08/24/18 at 09:00 Pentoxifylline (Trental) 400 mg TID PO Last administered on 08/27/18at 08:27; Admin Dose 400 MG; Start 08/24/18 at 09:00 Miscellaneous Information 1 ea NOTE XX ; Start 08/24/18 at 02:30 Glucose (Glutose) 15 gm Q15M PRN PO DECREASED GLUCOSE; Start 08/24/18 at 02:30 Glucose (Glutose) 22.5 gm Q15M PRN PO DECREASED GLUCOSE; Start 08/24/18 at 02:30 Dextrose (D50w Syringe) 25 ml Q15M PRN IV DECREASED GLUCOSE; Start 08/24/18 at 02:30 Dextrose (D50w Syringe) 50 ml Q15M PRN IV DECREASED GLUCOSE; Start 08/24/18 at 02:30 Glucagon (Glucagen) 1 mg Q15M PRN IM DECREASED GLUCOSE; Start 08/24/18 at 02:30 Glucose (Glutose) 15 gm Q15M PRN BUCCAL DECREASED GLUCOSE; Start 08/24/18 at 02:30 Pantoprazole (Protonix Tab) 40 mg DAILY@06 PO Last administered on 08/27/18at 06:18; Admin Dose 40 MG; Start 08/24/18 at 06:00 Acetaminophen (Tylenol Tab) 650 mg Q6H PRN PO MILD PAIN(1-3)OR ELEVATED TEMP Last administered on 08/26/18 21:09; Admin Dose 650 MG; Start 08/24/18 at 03:00 Ondansetron HCl (Zofran Inj) 4 mg Q6H PRN IV NAUSEA AND/OR VOMITING Last administered on 08/25/18 09:10; Admin Dose 4 MG; Start 08/24/18 at 03:00 Miscellaneous Information (* Miscellaneous Pharmacy Order) Zosyn per pharmacy ONCE XX ; Start 08/24/18 at 03:00 Acetaminophen/ Hydrocodone Bitart ([place] (5/325)) 1 tab Q6H PRN PO MODERATE PAIN LEVEL 4-6 Last administered on 08/27/18 06:18; Admin Dose 1 TAB; Start 08/24/18 at 03:00 Miscellaneous Information (Pending Santyl Order For Wound Care) This patient mora... PRN PRN XX WOUND CARE; Start 08/24/18 at 03:00 Collagenase (Santyl) 1 applic DAILY TOP Last administered on 08/27/18 08:26; Admin Dose 1 APPLIC; Start 08/24/18 at 09:00 Collagenase (Santyl) 1 applic DAILY PRN TOP PRN; Start 08/24/18 at 09:00 Vancomycin HCl (Vanco Iv Per Pharmacy) VANCOMYCIN PER PHARMACY PER PROTOCOL XX ; Start 08/24/18 at 05:00 Insulin Aspart (Novolog Insulin Pen) NOVOLOG *MILD* ALGORITHM WITH MEALS BEDTIME SC Last administered on 08/27/18 07:47; Admin Dose 2 UNIT; Start 08/24/18 at 08:00 Diagnostic Test (Pha) (Accu-Chek) 1 ea 02 XX Last administered on 08/25/18 01:41; Admin Dose 1 EA; Start 08/25/18 at 02:00 Sodium Hypochlorite (Dakins Diluted ()) 1 applic BID TP Last administered on 08/27/18 08:27; Admin Dose 1 APPLIC; Start 08/24/18 at 21:00 Piperacillin Sod/ Tazobactam Sod 100 ml @ 200 mls/hr Q8 IVPB Last administered on 08/27/18 06:19; Admin Dose 200 MLS/HR; Start 08/24/18 at 20:30 Norepinephrine 250 ml @ 1.875 mls/ hr TITRATE IV Last administered on 08/24/18at 23:25; Admin Dose 3.75 MLS/HR; Start 08/24/18 at 22:30 Insulin Glargine (Lantus) 18 units DAILY@2000 SC Last administered on 08/26/18at 19:59; Admin Dose 18 UNITS; Start 08/25/18 at 20:00 Diagnostic Test (Pha) (Accu-Chek) 1 ea 02 XX ; Start 08/26/18 at 02:00 Insulin Aspart (Novolog Insulin Pen) 3 unit WITH MEALS SC Last administered on 08/27/18at 07:48; Admin Dose 3 UNIT; Start 08/25/18 at 11:30 Vancomycin HCl 1.5 gm/Sodium Chloride 250 ml @ 83.333 mls/ hr Q48H IVPB ; Start 08/27/18 at 12:00 Dextrose/Sodium Chloride 1,000 ml @ 70 mls/hr [id number] IV Last administered on 08/27/18at 02:09; Admin Dose 70 MLS/HR; Start 08/26/18 at 19:30 GINA SUTTON MD August 27, 2018 09:09
[2018-08-27] MEDS ORDERED: VANCOMYCIN HCL 1.5 GM in SOD CHLORIDE 0.9% 250 ML IVPB SCH (12:00)
--- NOTE | 2018-08-27 14:38 | CONS ---
Assessment/Plan Assessment/Plan Hospital Course (Demo Recall) No acute changes overnight. Patient is status post right below-knee amputation yesterday he is alert in no distress and afebrile. Microbiology: Blood culture on admission grew VRE susceptible to ampicillin and gram-negative rods, repeat blood cultures and wound cultures pending Indwelling's: Right upper extremity PICC line Antimicrobials: Zosyn, vancomycin Physical examination: This is a well-developed well-nourished middle-aged male who is in no distress. Head atraumatic normocephalic sclera nonicteric. Neck is supple. Chest rise symmetrical, breath sounds clear. Heart: S1-S2. Abdomen soft bowel sounds present. Extremities with bilateral lower extremity dressings present with purulent drainage and foul order also patient has gangrene all stools Assessment: 1. Severe sepsis, present on admission 2. Bilateral lower extremity's gangrene/osteomyelitis 3. Peripheral arterial disease 4. Diabetes 5. Acute kidney injury 6. Anemia Plan: Clinically stable, repeat bld cx neg, continue antibiotics, follow final cultures. Pt will likely required skilled nursing IV abx Consultation Date/Type/Reason Admit Date/Time Aug 23, 2018 at 21:27 Initial Consult Date 08/25/18 Type of Consult id Date/Time of Note DATE: 08/27/18 TIME: 14:34 Exam/Review of Systems Exam Vitals Vital Signs Date Temp Pulse Resp B/P (MAP) Pulse Ox O2 O2 Flow FiO2 Time Delivery Rate 08/27/18 97.3 85 15 124/83 97 Room Air 14:16 (97) Intake and Output 08/26/18 08/26/18 08/27/18 1515:00 23:00 07:00 IntakeIntake Total 1000.00 ml 677 ml 1880 ml OutputOutput Total 650 ml 700 ml 350 ml BalanceBalance 350.00 ml -23 ml 1530 ml Results Result Diagram: 08/27/18 1158 08/27/18 0500 Results 24hrs Laboratory Tests Test 08/26/18 17:52 08/26/18 19:57 08/27/18 02:12 08/27/18 05:00 Bedside Glucose 71 121 119 White Blood Count 23.5 #H Red Blood Count 2.60 #L Hemoglobin 7.7 #L Hematocrit 22.9 #L Mean Corpuscular Volume 88.1 Mean Corpuscular 29.6 Hemoglobin Mean Corpuscular 33.6 Hemoglobin Concent Red Cell Distribution 14.3 Width Platelet Count 292 Mean Platelet Volume 9.4 Immature Granulocytes % 2.100 H Neutrophils % Segmented Neutrophils 95 H % (Manual) Band Neutrophils % 4 (Manual) Lymphocytes % Lymphocytes % (Manual) 1 L Monocytes % Eosinophils % Basophils % Nucleated Red Blood 0.0 Cells % Immature Granulocytes # 0.490 H Neutrophils # Neutrophils # (Manual) 22.5 H Band Neutrophils # 0.9 H Lymphocytes (Manual) 0.2 L Lymphocytes # Monocytes # Eosinophils # Basophils # Nucleated Red Blood Cells # Platelet Estimate NORMAL Poikilocytosis 2+ Sodium Level 138 Potassium Level 4.0 Chloride Level 113 H Carbon Dioxide Level 17 L Anion Gap 8 Blood Urea Nitrogen 30 H Creatinine 1.90 H Est Glomerular Filtrat 37 L Rate mL/min Glucose Level 180 Calcium Level 7.7 L Total Bilirubin 0.3 Direct Bilirubin 0.00 Indirect Bilirubin 0.3 Aspartate Amino 23 Transf (AST/SGOT) Alanine 22 Aminotransferase (ALT/SG PT) Alkaline Phosphatase 153 H Total Protein 5.3 L Albumin 2.1 L Globulin 3.20 Albumin/Globulin Ratio 0.65 Test 08/27/18 07:42 08/27/18 11:58 Bedside Glucose 210 Hemoglobin 7.9 L Hematocrit 23.8 L Medications Medication Current Medications Ferrous Sulfate (Ferrous Sulfate (Ec)) 325 mg DAILY PO Last administered on 08/27/18at 08:27; Admin Dose 325 MG; Start 08/24/18 at 09:00 Linagliptin (Tradjenta) 5 mg DAILY PO Last administered on 08/27/18at 08:27; Admin Dose 5 MG; Start 08/24/18 at 09:00 Pentoxifylline (Trental) 400 mg TID PO Last administered on 08/27/18at 13:17; Admin Dose 400 MG; Start 08/24/18 at 09:00 Miscellaneous Information 1 ea NOTE XX ; Start 08/24/18 at 02:30 Glucose (Glutose) 15 gm Q15M PRN PO DECREASED GLUCOSE; Start 08/24/18 at 02:30 Glucose (Glutose) 22.5 gm Q15M PRN PO DECREASED GLUCOSE; Start 08/24/18 at 02:30 Dextrose (D50w Syringe) 25 ml Q15M PRN IV DECREASED GLUCOSE; Start 08/24/18 at 02:30 Dextrose (D50w Syringe) 50 ml Q15M PRN IV DECREASED GLUCOSE; Start 08/24/18 at 02:30 Glucagon (Glucagen) 1 mg Q15M PRN IM DECREASED GLUCOSE; Start 08/24/18 at 02:30 Glucose (Glutose) 15 gm Q15M PRN BUCCAL DECREASED GLUCOSE; Start 08/24/18 at 02:30 Pantoprazole (Protonix Tab) 40 mg DAILY@06 PO Last administered on 08/27/18at 06:18; Admin Dose 40 MG; Start 08/24/18 at 06:00 Acetaminophen (Tylenol Tab) 650 mg Q6H PRN PO MILD PAIN(1-3)OR ELEVATED TEMP Last administered on 08/26/18at 21:09; Admin Dose 650 MG; Start 08/24/18 at 03:00 Ondansetron HCl (Zofran Inj) 4 mg Q6H PRN IV NAUSEA AND/OR VOMITING Last administered on 08/25/18at 09:10; Admin Dose 4 MG; Start 08/24/18 at 03:00 Miscellaneous Information (* Miscellaneous Pharmacy Order) Zosyn per pharmacy ONCE XX ; Start 08/24/18 at 03:00 Acetaminophen/ Hydrocodone Bitart ([place] (5/325)) 1 tab Q6H PRN PO MODERATE PAIN LEVEL 4-6 Last administered on 08/27/18at 06:18; Admin Dose 1 TAB; Start 08/24/18 at 03:00 Miscellaneous Information (Pending Santyl Order For Wound Care) This patient mora... PRN PRN XX WOUND CARE; Start 08/24/18 at 03:00 Collagenase (Santyl) 1 applic DAILY TOP Last administered on 08/27/18at 08:26; Admin Dose 1 APPLIC; Start 08/24/18 at 09:00 Collagenase (Santyl) 1 applic DAILY PRN TOP PRN; Start 08/24/18 at 09:00 Vancomycin HCl (Vanco Iv Per Pharmacy) VANCOMYCIN PER PHARMACY PER PROTOCOL XX ; Start 08/24/18 at 05:00 Insulin Aspart (Novolog Insulin Pen) NOVOLOG *MILD* ALGORITHM WITH MEALS BEDTIME SC Last administered on 08/27/18at 13:26; Admin Dose 3 UNIT; Start at 08:00 Diagnostic Test (Pha) (Accu-Chek) 1 ea 02 XX Last administered on 08/25/18at 01:41; Admin Dose 1 EA; Start 08/25/18 at 02:00 Sodium Hypochlorite (Dakins Diluted ()) 1 applic BID TP Last administered on 08/27/18at 08:27; Admin Dose 1 APPLIC; Start 08/24/18 at 21:00 Piperacillin Sod/ Tazobactam Sod 100 ml @ 200 mls/hr Q8 IVPB Last administered on 08/27/18at 13:17; Admin Dose 200 MLS/HR; Start 08/24/18 at 20:30 Insulin Glargine (Lantus) 18 units DAILY@2000 SC Last administered on 08/26/18 19:59; Admin Dose 18 UNITS; Start 08/25/18 at 20:00 Diagnostic Test (Pha) (Accu-Chek) 1 ea XX ; Start 08/26/18 at 02:00 Insulin Aspart (Novolog Insulin Pen) 3 unit WITH MEALS SC Last administered on 08/27/18at 13:22; Admin Dose 3 UNIT; Start 08/25/18 at 11:30 Vancomycin HCl 1.5 gm/Sodium Chloride 250 ml @ 83.333 mls/ hr Q48H IVPB ; Start 08/27/18 at 12:00 ROXANNA SOMERS NP August 27, 2018 14:38
--- NOTE | 2018-08-27 15:09 | PAC ---
Date/Time of Note Date/Time of Note DATE: 08/27/18 TIME: 15:09 Post-Anesthesia Notes Post-Anesthesia Note Last documented vital signs Vital Signs Date Temp Pulse Resp B/P (MAP) Pulse Ox O2 O2 Flow FiO2 Time Delivery Rate 08/27/18 97.3 85 15 124/83 97 Room Air 14:16 (97) Activity: WNL Respiratory function: WNL Cardiovascular function: WNL Mental status: Baseline Pain reasonably controlled: Yes Hydration appropriate: Yes Nausea/Vomiting absent: Yes RHONA LOZA August 27, 2018 15:09
[2018-08-27] MEDS: INSULIN GLARGINE [LANTus] (100 UNITS/ML) SYG SC SCH (21:04)
[2018-08-27] MEDS: ACETAMINOPHEN 325 MG TAB PO PRN (21:07)
[2018-08-28] MEDS: ACCU-CHEK XX SCH ×2 (02:00)
[2018-08-28 02:05] VITALS: BP 123/74; PULSE 76; RESP 18
[2018-08-28] MEDS: PIPER-TAZO 3.375 GM IV (PMX) 100 ML IVPB SCH ×2 (05:41→13:51)
[2018-08-28] MEDS: PANTOPRAZOLE (EC) 40 MG TAB PO SCH (05:41)
[2018-08-28] MEDS: INSULIN ASPART [NOVOLOG] 3 ML PEN SC SCH ×7 (07:58→21:00)
[2018-08-28 08:00] VITALS: BP 138/87; PULSE 79; RESP 18
[2018-08-28] MEDS: PENTOXIFYLLINE (SR) 400 MG TAB PO SCH ×3 (08:00→20:12)
[2018-08-28] MEDS: LINAGLIPTIN 5 MG TABLET PO SCH (08:00)
[2018-08-28] MEDS: FERROUS SULFATE (EC) 325 MG TAB PO SCH (08:00)
[2018-08-28] MEDS: COLLAGENASE 5 GM (UD JAR) TOP SCH (08:03)
[2018-08-28] MEDS: DAKINS 0.0125%(1/40) 473 ML SOLUTION TP SCH ×2 (08:03→21:00)
[2018-08-28] MEDS: POLYETHYLENE GLYCOL 17 GM PACKET PO PRN (08:57)
[2018-08-28] MEDS: SOD CHLORIDE 0.9% 1,000 ML IV SCH (08:58)
[2018-08-28 14:00] VITALS: BP 136/72; PULSE 84; RESP 20
--- NOTE | 2018-08-28 14:23 | CONS ---
Assessment/Plan Assessment/Plan Hospital Course (Demo Recall) No acute changes overnight. Patient is status post right below-knee amputation yesterday he is alert in no distress and afebrile. Microbiology: Blood culture on admission grew VRE susceptible to ampicillin and Bacteroides fragilis repeat blood cultures negative, left foot wound culture grew Corynebacterium, VRE, coag negative staph, yeast bacteroid fragilis Indwelling's: Right upper extremity PICC line Antimicrobials: Zosyn, vancomycin Physical examination: This is a well-developed well-nourished middle-aged male who is in no distress. Head atraumatic normocephalic sclera nonicteric. Neck is supple. Chest rise symmetrical, breath sounds clear. Hear t: S1-S2. Abdomen soft bowel sounds present. Extremities with bilateral lower extremity dressings present with purulent drainage and foul order also patient has gangrene all stools Assessment: 1. Severe sepsis, present on admission 2. Bilateral lower extremity's gangrene/osteomyelitis 3. Peripheral arterial disease 4. Diabetes 5. Acute kidney injury 6. Anemia Plan: Clinically stable, repeat bld cx neg, continue Zosyn and add fluconazole, discontinue vancomycin, anticipate dc on IV abx for 6 weeks==>IV Ampicillin, Vanco and po Diflucan vs Daptomycin IV and po Diflucan Consultation Date/Type/Reason Admit Date/Time Aug 23, 2018 at 21:27 Initial Consult Date 08/25/18 Type of Consult id Date/Time of Note DATE: 08/28/18 TIME: 14:21 Exam/Review of Systems Exam Vitals Vital Signs Date Temp Pulse Resp B/P (MAP) Pulse Ox O2 O2 Flow FiO2 Time Delivery Rate 08/28/18 98.8 79 18 138/87 96 08:00 (104) 08/27/18 Room Air 14:16 Intake and Output 08/27/18 08/27/18 08/28/18 1515:00 23:00 07:00 IntakeIntake Total 660 ml 590 ml 900 ml OutputOutput Total 300 ml 500 ml BalanceBalance 360 ml 590 ml 400 ml Results Result Diagram: 08/28/18 0727 08/28/18 0727 Results 24hrs Laboratory Tests Test 08/27/18 17:29 08/27/18 21:01 08/28/18 02:30 08/28/18 07:27 Bedside Glucose 237 H 291 H 236 H White Blood Count 20.7 H Red Blood Count 2.46 L Hemoglobin 7.3 L Hematocrit 21.6 L Mean Corpuscular Volume 87.8 Mean Corpuscular 29.7 Hemoglobin Mean Corpuscular 33.8 Hemoglobin Concent Red Cell Distribution 13.9 Width Platelet Count 312 Mean Platelet Volume 9.4 Immature Granulocytes % 2.900 H Neutrophils % 88.6 H Lymphocytes % 6.2 L Monocytes % 2.1 Eosinophils % 0.0 Basophils % 0.2 Nucleated Red Blood 0.0 Cells % Immature Granulocytes # 0.600 H Neutrophils # 18.4 H Lymphocytes # 1.3 Monocytes # 0.4 Eosinophils # 0.0 Basophils # 0.0 Nucleated Red Blood 0.0 Cells # Sodium Level 138 Potassium Level 4.0 Chloride Level 113 H Carbon Dioxide Level 16 L Anion Gap 9 Blood Urea Nitrogen 45 #H Creatinine 2.19 H Est Glomerular Filtrat 32 L Rate mL/min Glucose Level 217 Calcium Level 8.0 L Test 08/28/18 07:54 08/28/18 11:47 Bedside Glucose 231 H 229 H Medications Medication Current Medications Ferrous Sulfate (Ferrous Sulfate (Ec)) 325 mg DAILY PO Last administered on 08/28/18at 08:00; Admin Dose 325 MG; Start 08/24/18 at 09:00 Linagliptin (Tradjenta) 5 mg DAILY PO Last administered on 08/28/18at 08:00; Admin Dose 5 MG; Start 08/24/18 at 09:00 Pentoxifylline (Trental) 400 mg TID PO Last administered on 08/28/18at 13:51; Admin Dose 400 MG; Start 08/24/18 at 09:00 Miscellaneous Information 1 ea NOTE XX ; Start 08/24/18 at 02:30 Glucose (Glutose) 15 gm Q15M PRN PO DECREASED GLUCOSE; Start 08/24/18 at 02:30 Glucose (Glutose) 22.5 gm Q15M PRN PO DECREASED GLUCOSE; Start 08/24/18 at 02:30 Dextrose (D50w Syringe) 25 ml Q15M PRN IV DECREASED GLUCOSE; Start 08/24/18 at 02:30 Dextrose (D50w Syringe) 50 ml Q15M PRN IV DECREASED GLUCOSE; Start 08/24/18 at 02:30 Glucagon (Glucagen) 1 mg Q15M PRN IM DECREASED GLUCOSE; Start 08/24/18 at 02:30 Glucose (Glutose) 15 gm Q15M PRN BUCCAL DECREASED GLUCOSE; Start 08/24/18 at 02:30 Pantoprazole (Protonix Tab) 40 mg DAILY@06 PO Last administered on 08/28/18 05:41; Admin Dose 40 MG; Start 08/24/18 at 06:00 Acetaminophen (Tylenol Tab) 650 mg Q6H PRN PO MILD PAIN(1-3)OR ELEVATED TEMP Last administered on 08/27/18 21:07; Admin Dose 650 MG; Start 08/24/18 at 03:00 Ondansetron HCl (Zofran Inj) 4 mg Q6H PRN IV NAUSEA AND/OR VOMITING Last administered on 08/25/18 09:10; Admin Dose 4 MG; Start 08/24/18 at 03:00 Miscellaneous Information (* Miscellaneous Pharmacy Order) Zosyn per pharmacy ONCE XX ; Start 08/24/18 at 03:00 Acetaminophen/ Hydrocodone Bitart ([place] (5/325)) 1 tab Q6H PRN PO MODERATE PAIN LEVEL 4-6 Last administered on 08/27/18 06:18; Admin Dose 1 TAB; Start 08/24/18 at 03:00 Miscellaneous Information (Pending Santyl Order For Wound Care) This patient mora... PRN PRN XX WOUND CARE; Start 08/24/18 at 03:00 Collagenase (Santyl) 1 applic DAILY TOP Last administered on 08/27/18 08:26; A dmin Dose 1 APPLIC; Start 08/24/18 at 09:00 Collagenase (Santyl) 1 applic DAILY PRN TOP PRN; Start 08/24/18 at 09:00 Vancomycin HCl (Vanco Iv Per Pharmacy) VANCOMYCIN PER PHARMACY PER PROTOCOL XX ; Start 08/24/18 at 05:00 Insulin Aspart (Novolog Insulin Pen) NOVOLOG *MILD* ALGORITHM WITH MEALS BED TIME SC Last administered on 08/28/18 11:54; Admin Dose 3 UNIT; Start 08/24/18 at 08:00 Diagnostic Test (Pha) (Accu-Chek) 1 ea 02 XX Last administered on 08/25/18 01:41; Admin Dose 1 EA; Start 08/25/18 at 02:00 Sodium Hypochlorite (Dakins Diluted ()) 1 applic BID TP Last administered on 08/27/18at 21:14; Admin Dose 1 APPLIC; Start 08/24/18 at 21:00 Piperacillin Sod/ Tazobactam Sod 100 ml @ 200 mls/hr Q8 IVPB Last administered on 08/28/18at 13:51; Admin Dose 200 MLS/HR; Start 08/24/18 at 20:30 Diagnostic Test (Pha) (Accu-Chek) 1 ea 02 XX ; Start 08/26/18 at 02:00 Vancomycin HCl 1.5 gm/Sodium Chloride 250 ml @ 83.333 mls/ hr Q48H IVPB Last administered on 08/27/18at 14:44; Admin Dose 83.333 MLS/HR; Start 08/27/18 at 12:00 Docusate Sodium (Colace) 100 mg BID PRN PO CONSTIPATION; Start 08/28/18 at 09:00 Polyethylene Glycol (Miralax) 17 gm DAILY PRN PO CONSTIPATION Last administered on 08/28/18at 08:57; Admin Dose 17 GM; Start 08/28/18 at 09:00 Sodium Chloride 1,000 ml @ 70 mls/hr [id number] IV Last administered on 08/28/18at 08:58; Admin Dose 70 MLS/HR; Start 08/28/18 at 09:00 Insulin Aspart (Novolog Insulin Pen) 6 unit WITH MEALS SC ; Start 08/28/18 at 17:35 Insulin Glargine (Lantus) 24 units DAILY@2000 SC ; Start 08/28/18 at 20:00 ROXANNA SOMERS NP August 28, 2018 14:23
[2018-08-28] MEDS: FLUCONAZOLE 100 MG TAB PO SCH (14:45)
--- NOTE | 2018-08-28 15:42 | PN ---
DAPHNEYCARLYLeonidesTEODORO 08/28/18 1542: Date/Time of Note Date/Time of Note DATE: 08/28/18 TIME: 15:35 Assessment/Plan VTE Prophylaxis Risk score (from [facility] [place]0 risk: 5 SCD applied (from [facility] [place]): No SCD contraindicated: other Pharmacological prophylaxis: NA/contraindicated Pharm contraindication: surgical contra Lines/Catheters IV Catheter Type (from [facility]): PICC Line Central line still needed: Yes Urinary Cath still in place: No Assessment/Plan Hospital Course 1 septic shock secondary to right foot infection with possible soft tissue infection, necrotizing fasciitis (?). Now with gram-negative bacteremia + sp Rt BKA on 08/26/18 2. Diabetes. 3. Acute kidney injury on chronic kidney disease. 4. Hyponatremia. 5. Hypotension, likely secondary to #1. 6. Right lower extremity foul smelling wounds. 7. Anemia, likely anemia of chronic disease, no blood loss no history of GI bleeding 8 Leukocytosis 9 Metabolic acidosis Assessment/Plan - med surg -cr. is up -dose of lasix today -dr Estrella garibay surgeon - cw vancomycin/zosyn, - WBC trending down - FU ID recs - cw NS gentle - Repeat H/H - CW Lantus/ mealtime insulin - hold bp meds - gi prophylaxis is protonix -dvt PROPHYLAXIS , unable to tolerate, anemia. Result Diagram: 08/28/1872608/28/18726 Results 24hrs Laboratory Tests Test 08/27/18 17:29 08/27/18 21:01 08/28/18 02:30 08/28/18 07:27 Bedside Glucose 237 H 291 H 236 H White Blood Count 20.7 H Red Blood Count 2.46 L Hemoglobin 7.3 L Hematocrit 21.6 L Mean Corpuscular Volume 87.8 Mean Corpuscular 29.7 Hemoglobin Mean Corpuscular 33.8 Hemoglobin Concent Red Cell Distribution 13.9 Width Platelet Count 312 Mean Platelet Volume 9.4 Immature Granulocytes % 2.900 H Neutrophils % 88.6 H Lymphocytes % 6.2 L Monocytes % 2.1 Eosinophils % 0.0 Basophils % 0.2 Nucleated Red Blood 0.0 Cells % Immature Granulocytes # 0.600 H Neutrophils # 18.4 H Lymphocytes # 1.3 Monocytes # 0.4 Eosinophils # 0.0 Basophils # 0.0 Nucleated Red Blood 0.0 Cells # Sodium Level 138 Potassium Level 4.0 Chloride Level 113 H Carbon Dioxide Level 16 L Anion Gap 9 Blood Urea Nitrogen 45 #H Creatinine 2.19 H Est Glomerular Filtrat 32 L Rate mL/min Glucose Level 217 Calcium Level 8.0 L Test 08/28/18 07:54 08/28/18 11:47 Bedside Glucose 231 H 229 H Subjective 24 Hr Interval Summary Constitutional: no complaints Exam/Review of Systems Exam Vitals Vital Signs Date Temp Pulse Resp B/P (MAP) Pulse Ox O2 O2 Flow FiO2 Time Delivery Rate 08/28/18 98.8 84 20 136/72 96 14:00 (93) 08/27/18 Room Air 14:16 Intake and Output 08/27/18 08/27/18 08/28/18 1515:00 23:00 07:00 IntakeIntake Total 660 ml 590 ml 900 ml OutputOutput Total 300 ml 500 ml BalanceBalance 360 ml 590 ml 400 ml Constitutional: alert, oriented Neck: supple Respiratory: clear to auscultation Cardiovascular: regular rate and rhythm Gastrointestinal: soft Musculoskeletal: swelling (left foot, 1. 2 toe skin changes), other (right BKA, bulk dressing is on) Results Result Diagram: 08/28/1872608/28/18 07 Results 24hrs Laboratory Tests Test 08/27/18 17:29 08/27/18 21:01 08/28/18 02:30 08/28/18 07:27 Bedside Glucose 237 H 291 H 236 H White Blood Count 20.7 H Red Blood Count 2.46 L Hemoglobin 7.3 L Hematocrit 21.6 L Mean Corpuscular Volume 87.8 Mean Corpuscular 29.7 Hemoglobin Mean Corpuscular 33.8 Hemoglobin Concent Red Cell Distribution 13.9 Width Platelet Count 312 Mean Platelet Volume 9.4 Immature Granulocytes % 2.900 H Neutrophils % 88.6 H Lymphocytes % 6.2 L Monocytes % 2.1 Eosinophils % 0.0 Basophils % 0.2 Nucleated Red Blood 0.0 Cells % Immature Granulocytes # 0.600 H Neutrophils # 18.4 H Lymphocytes # 1.3 Monocytes # 0.4 Eosinophils # 0.0 Basophils # 0.0 Nucleated Red Blood 0.0 Cells # Sodium Level 138 Potassium Level 4.0 Chloride Level 113 H Carbon Dioxide Level 16 L Anion Gap 9 Blood Urea Nitrogen 45 #H Creatinine 2.19 H Est Glomerular Filtrat 32 L Rate mL/min Glucose Level 217 Calcium Level 8.0 L Test 08/28/18 07:54 08/28/18 11:47 Bedside Glucose 231 H 229 H Medications Medication Current Medications Ferrous Sulfate (Ferrous Sulfate (Ec)) 325 mg DAILY PO Last administered on 08/28/18 08:00; Admin Dose 325 MG; Start 08/24/18 at 09:00 Linagliptin (Tradjenta) 5 mg DAILY PO Last administered on 08/28/18 08:00; Admin Dose 5 MG; Start 08/24/18 at 09:00 Pentoxifylline (Trental) 400 mg TID PO Last administered on 08/28/18 13:51; Admin Dose 400 MG; Start 08/24/18 at 09:00 Miscellaneous Information 1 ea NOTE XX ; Start 08/24/18 at 02:30 Glucose (Glutose) 15 gm Q15M PRN PO DECREASED GLUCOSE; Start 08/24/18 at 02:30 Glucose (Glutose) 22.5 gm Q15M PRN PO DECREASED GLUCOSE; Start 08/24/18 at 02:30 Dextrose (D50w Syringe) 25 ml Q15M PRN IV DECREASED GLUCOSE; Start 08/24/18 at 02:30 Dextrose (D50w Syringe) 50 ml Q15M PRN IV DECREASED GLUCOSE; Start 08/24/18 at 02:30 Glucagon (Glucagen) 1 mg Q15M PRN IM DECREASED GLUCOSE; Start 08/24/18 at 02:30 Glucose (Glutose) 15 gm Q15M PRN BUCCAL DECREASED GLUCOSE; Start 08/24/18 at 02:30 Pantoprazole (Protonix Tab) 40 mg DAILY@06 PO Last administered on 08/28/18at 05:41; Admin Dose 40 MG; Start 08/24/18 at 06:00 Acetaminophen (Tylenol Tab) 650 mg Q6H PRN PO MILD PAIN(1-3)OR ELEVATED TEMP Last administered on 08/27/18at 21:07; Admin Dose 650 MG; Start 08/24/18 at 03:00 Ondansetron HCl (Zofran Inj) 4 mg Q6H PRN IV NAUSEA AND/OR VOMITING Last administered on 08/25/18at 09:10; Admin Dose 4 MG; Start 08/24/18 at 03:00 Miscellaneous Information (* Miscellaneous Pharmacy Order) Zosyn per pharmacy ONCE XX ; Start 08/24/18 at 03:00 Acetaminophen/ Hydrocodone Bitart ([place] (5/325)) 1 tab Q6H PRN PO MODERATE PAIN LEVEL 4-6 Last administered on 08/27/18 06:18; Admin Dose 1 TAB; Start 08/24/18 at 03:00 Miscellaneous Information (Pending Santyl Order For Wound Care) This patient mora... PRN PRN XX WOUND CARE; Start 08/24/18 at 03:00 Collagenase (Santyl) 1 applic DAILY TOP Last administered on 08/27/18 08:26; Admin Dose 1 APPLIC; Start 08/24/18 at 09:00 Collagenase (Santyl) 1 applic DAILY PRN TOP PRN; Start 08/24/18 at 09:00 Insulin Aspart (Novolog Insulin Pen) NOVOLOG *MILD* ALGORITHM WITH MEALS BEDTIME SC Last administered on 08/28/18 11:54; Admin Dose 3 UNIT; Start 08/24/18 at 08:00 Diagnostic Test (Pha) (Accu-Chek) 1 ea 02 XX Last administered on 08/25/18 01:41; Admin Dose 1 EA; Start 08/25/18 at 02:00 Sodium Hypochlorite (Dakins Diluted ()) 1 applic BID TP Last administered on 08/27/18 21:14; Admin Dose 1 APPLIC; Start 08/24/18 at 21:00 Piperacillin Sod/ Tazobactam Sod 100 ml @ 200 mls/hr Q8 IVPB Last administered on 08/28/18 13:51; Admin Dose 200 MLS/HR; Start 08/24/18 at 20:30 Diagnostic Test (Pha) (Accu-Chek) 1 ea 02 XX ; Start 08/26/18 at 02:00 Docusate Sodium (Colace) 100 mg BID PRN PO CONSTIPATION; Start 08/28/18 at 09:00 Polyethylene Glycol (Miralax) 17 gm DAILY PRN PO CONSTIPATION Last administered on 08/28/18 08:57; Admin Dose 17 GM; Start 08/28/18 at 09:00 Sodium Chloride 1,000 ml @ 70 mls/hr [id number] IV Last administered on 08/28/18at 08:58; Admin Dose 70 MLS/HR; Start 08/28/18 at 09:00 Insulin Aspart (Novolog Insulin Pen) 6 unit WITH MEALS SC ; Start 08/28/18 at 17:35 Insulin Glargine (Lantus) 24 units DAILY@2000 SC ; Start 08/28/18 at 20:00 Fluconazole (Diflucan) 100 mg DAILY PO Last administered on 08/28/18at 14:45; Admin Dose 100 MG; Start 08/28/18 at 14:30 GINA SUTTON MD 08/28/18 1807: Assessment/Plan Assessment/Plan Assessment/Plan pt orion nd examiend DANIELLE ? AIN meds, hold vanco, check UA, SPOKE TO PHARMACY TO adjust zosyn renal/bladder U/S Result Diagram: 08/28/18 0727 08/28/18 0727 TEODORO RIDER August 28, 2018 15:42 GINA SUTTON MD August 28, 2018 18:07
[2018-08-28] MEDS ORDERED: FUROSEMIDE 20 MG INJ IV ONE (16:00)
[2018-08-28 16:31] VITALS: BP 138/87
[2018-08-28 20:00] VITALS: BP 122/77; PULSE 86; RESP 18
[2018-08-28] MEDS: INSULIN GLARGINE [LANTus] (100 UNITS/ML) SYG SC SCH (20:10)
[2018-08-28] MEDS: DOCUSATE SODIUM 100 MG CAP PO PRN (21:21)
[2018-08-28] MEDS: PIPER-TAZO 2.25 GM (PMX) 50 ML IVPB SCH (21:21)
[2018-08-29 02:00] VITALS: BP 144/87; PULSE 85; RESP 18
[2018-08-29] MEDS: ACCU-CHEK XX SCH ×2 (02:00)
[2018-08-29] MEDS: PIPER-TAZO 2.25 GM (PMX) 50 ML IVPB SCH ×3 (05:46→21:42)
[2018-08-29] MEDS: PANTOPRAZOLE (EC) 40 MG TAB PO SCH (05:50)
[2018-08-29 07:20] VITALS: BP 153/95; PULSE 90; RESP 16
[2018-08-29] MEDS: INSULIN ASPART [NOVOLOG] 3 ML PEN SC SCH ×7 (07:35→21:00)
[2018-08-29] MEDS: PENTOXIFYLLINE (SR) 400 MG TAB PO SCH ×3 (08:58→21:42)
[2018-08-29] MEDS: LINAGLIPTIN 5 MG TABLET PO SCH (08:58)
[2018-08-29] MEDS: FERROUS SULFATE (EC) 325 MG TAB PO SCH (08:58)
[2018-08-29] MEDS: FLUCONAZOLE 100 MG TAB PO SCH (08:58)
[2018-08-29] MEDS: DAKINS 0.0125%(1/40) 473 ML SOLUTION TP SCH ×2 (09:00→21:00)
[2018-08-29] MEDS: COLLAGENASE 5 GM (UD JAR) TOP SCH (09:00)
[2018-08-29] MEDS: SOD CHLORIDE 0.9% 1,000 ML IV SCH (09:02)
--- NOTE | 2018-08-29 11:07 | CONS ---
Consultation Date/Type/Reason Admit Date/Time Aug 23, 2018 at 21:27 Initial Consult Date 08/25/18 Type of Consult SUBJECTIVE: Patient is he is awake, alert, afebrile. no acute events over night. S/P right below-knee amputation 08/27/18 VS: Stable T: 98.2 LABS: Reviewed. WBC-14.3 -Improving. Microbiology: Blood culture on admission grew VRE susceptible to ampicillin and Bacteroides fragilis repeat blood cultures negative, left foot wound culture grew Corynebacterium, VRE, coag negative staph, yeast bacteroid fragilis Lt foot Cx: GRAM STAIN Final EPITHELIAL CELLS 1+ GRAM POS COCCI IN CLUSTER 1+ GRAM POSITIVE RODS 1+ GRAM NEGATIVE RODS 1+ WOUND CULTURE Preliminary Organism 1 CORYNEBACTERIUM SPECIES QUANTITY 3+ Organism 2 VANCO RESISTANT ENTEROCOCCUS QUANTITY SCANT GROWTH . MULTI DRUG RESISTANT ORGANISM Organism 3 COAGULASE NEGATIVE STAPH QUANTITY SCANT GROWTH Organism 4 YEAST QUANTITY 1+ RE: CORYNEBACTERIUM SPECIES Clinical susceptibiltiy testing standard for this organism have not been established. However, this organism has demonstrated in vitro growth inhibition to the following chemotherapeutic agents listed as susceptible. Indwelling's: Right upper extremity PICC line Antimicrobials: Zosyn and Diflucan Physical examination: GEN: This is a well-developed well-nourished middle-aged male, who is in no distress. HENT: Head atraumatic normocephalic ;sclera nonicteric. Neck is supple. PULM: Chest rise symmetrical, breath sounds clear. Heart: S1-S2. Abdomen soft bowel sounds present. Extremities with bilateral lower extremity dressings present with purulent drainage and foul order also patient has gangrene all stools Assessment: 1. Severe sepsis, present on admission 2. Bilateral lower extremity's gangrene/osteomyelitis 3. Peripheral arterial disease 4. Diabetes 5. Acute kidney injury 6. Anemia Plan: Pt is stable. Continue Zosyn and fluconazole. Anticipate dc on IV abx for 6 weeks==>IV Ampicillin, Vanco and po Diflucan vs Daptomycin IV and po Diflucan. PICC line in place. Date/Time of Note DATE: 08/29/18 TIME: 11:02 Exam/Review of Systems Exam Vitals Vital Signs Date Temp Pulse Resp B/P (MAP) Pulse Ox O2 O2 Flow FiO2 Time Delivery Rate 08/29/18 98.2 90 16 153/95 98 Room Air 07:20 (114) Intake and Output 08/28/18 08/28/18 08/29/18 1515:00 23:00 07:00 IntakeIntake Total 690 ml 2520 ml 1550 ml OutputOutput Total 1200 ml 1645 ml 2280 ml BalanceBalance -510 ml 875 ml -730 ml Results Result Diagram: 08/29/18 0531 08/29/18 0531 Results 24hrs Laboratory Tests Test 08/28/18 11:47 08/28/18 15:50 08/28/18 17:10 08/28/18 20:05 Bedside Glucose 229 H 165 125 Urine Color YELLOW Urine Clarity SLIGHTLY CLOUDY A Urine pH 5.0 Urine Specific 1.016 [place] Urine Ketones NEGATIVE Urine Nitrite NEGATIVE Urine Bilirubin NEGATIVE Urine Urobilinogen NEGATIVE Urine Leukocyte NEGATIVE Esterase Urine Microscopic 0 RBC Urine Microscopic 2 WBC Urine Amorphous FEW A Crystals Urine Bacteria FEW A Urine Hemoglobin 3+ H Urine Glucose 1+ H Urine Total 2+ H Protein Test 08/28/18 21:28 08/29/18 05:31 08/29/18 08:04 Bedside Glucose 112 83 White Blood Count 14.3 #H Red Blood Count 2.56 L Hemoglobin 7.5 L Hematocrit 22.5 L Mean Corpuscular 87.9 Volume Mean Corpuscular 29.3 Hemoglobin Mean Corpuscular 33.3 Hemoglobin Concent Red Cell 13.8 Distribution Width Platelet Count 330 Mean Platelet 9.3 Volume Immature 3.800 H Granulocytes % Neutrophils % 77.3 H Lymphocytes % 13.7 L Monocytes % 4.8 Eosinophils % 0.3 Basophils % 0.1 Nucleated Red 0.0 Blood Cells % Immature 0.540 H Granulocytes # Neutrophils # 11.1 H Lymphocytes # 2.0 Monocytes # 0.7 Eosinophils # 0.1 Basophils # 0.0 Nucleated Red 0.0 Blood Cells # Sodium Level 140 Potassium Level 3.3 L Chloride Level 111 H Carbon Dioxide 20 L Level Anion Gap 9 Blood Urea 40 H Nitrogen Creatinine 2.08 H Est Glomerular 34 L Filtrat Rate mL/min Glucose Level 71 # Calcium Level 7.7 L Medications Medication Current Medications Ferrous Sulfate (Ferrous Sulfate (Ec)) 325 mg DAILY PO Last administered on 08/29/18at 08:58; Admin Dose 325 MG; Start 08/24/18 at 09:00 Linagliptin (Tradjenta) 5 mg DAILY PO Last administered on 08/29/18at 08:58; Admin Dose 5 MG; Start 08/24/18 at 09:00 Pentoxifylline (Trental) 400 mg TID PO Last administered on 08/29/18at 08:58; Admin Dose 400 MG; Start 08/24/18 at 09:00 Miscellaneous Information 1 ea NOTE XX ; Start 08/24/18 at 02:30 Glucose (Glutose) 15 gm Q15M PRN PO DECREASED GLUCOSE; Start 08/24/18 at 02:30 Glucose (Glutose) 22.5 gm Q15M PRN PO DECREASED GLUCOSE; Start 08/24/18 at 02:30 Dextrose (D50w Syringe) 25 ml Q15M PRN IV DECREASED GLUCOSE; Start 08/24/18 at 02:30 Dextrose (D50w Syringe) 50 ml Q15M PRN IV DECREASED GLUCOSE; Start 08/24/18 at 02:30 Glucagon (Glucagen) 1 mg Q15M PRN IM DECREASED GLUCOSE; Start 08/24/18 at 02:30 Glucose (Glutose) 15 gm Q15M PRN BUCCAL DECREASED GLUCOSE; Start 08/24/18 at 02:30 Pantoprazole (Protonix Tab) 40 mg DAILY@06 PO Last administered on 08/29/18at 05:50; Admin Dose 40 MG; Start 08/24/18 at 06:00 Acetaminophen (Tylenol Tab) 650 mg Q6H PRN PO MILD PAIN(1-3)OR ELEVATED TEMP Last administered on 08/27/18at 21:07; Admin Dose 650 MG; Start 08/24/18 at 03:00 Ondansetron HCl (Zofran Inj) 4 mg Q6H PRN IV NAUSEA AND/OR VOMITING Last administered on 08/25/18at 09:10; Admin Dose 4 MG; Start 08/24/18 at 03:00 Miscellaneous Information (* Miscellaneous Pharmacy Order) Zosyn per pharmacy ONCE XX ; Start 08/24/18 at 03:00 Acetaminophen/ Hydrocodone Bitart ([place] (5/325)) 1 tab Q6H PRN PO MODERATE PAIN LEVEL 4-6 Last administered on 08/27/18at 06:18; Admin Dose 1 TAB; Start 08/24/18 at 03:00 Miscellaneous Information (Pending Santyl Order For Wound Care) This patient omra... PRN PRN XX WOUND CARE; Start 08/24/18 at 03:00 Collagenase (Santyl) 1 applic DAILY TOP Last administered on 08/27/18 08:26; Admin Dose 1 APPLIC; Start 08/24/18 at 09:00 Collagenase (Santyl) 1 applic DAILY PRN TOP PRN; Start 08/24/18 at 09:00 Insulin Aspart (Novolog Insulin Pen) NOVOLOG *MILD* ALGORITHM WITH MEALS BEDTIME SC Last administered on 08/28/18 17:13; Admin Dose 1 UNIT; Start 08/24/18 at 08:00 Diagnostic Test (Pha) (Accu-Chek) 1 ea 02 XX Last administered on 08/25/18 01:41; Admin Dose 1 EA; Start 08/25/18 at 02:00 Sodium Hypochlorite (Dakins Diluted (/40)) 1 applic BID TP Last administered on 08/27/18 21:14; Admin Dose 1 APPLIC; Start 08/24/18 at 21:00 Diagnostic Test (Pha) (Accu-Chek) 1 ea 02 XX ; Start 08/26/18 at 02:00 Docusate Sodium (Colace) 100 mg BID PRN PO CONSTIPATION Last administered on 08/28/18 21:21; Admin Dose 100 MG; Start 08/28/18 at 09:00 Polyethylene Glycol (Miralax) 17 gm DAILY PRN PO CONSTIPATION Last administered on 08/28/18 08:57; Admin Dose 17 GM; Start 08/28/18 at 09:00 Sodium Chloride 1,000 ml @ 25 mls/hr Q24H IV Last administered on 08/29/18 0 9:02; Admin Dose 25 MLS/HR; Start 08/28/18 at 09:00 Insulin Aspart (Novolog Insulin Pen) 6 unit WITH MEALS SC Last administered on 08/28/18 17:12; Admin Dose 6 UNIT; Start 08/28/18 at 17:35 Insulin Glargine (Lantus) 24 units DAILY@2000 SC Last administered on 08/28/18 20:10; Admin Dose 24 UNITS; Start 08/28/18 at 20:00 Fluconazole (Diflucan) 100 mg DAILY PO Last administered on 5/4/19at 08:58; Ad min Dose 100 MG; Start 08/28/18 at 14:30 Piperacillin Sod/ Tazobactam Sod 50 ml @ 100 mls/hr Q8 IVPB Last administered on 08/29/18at 05:46; Admin Dose 100 MLS/HR; Start 08/28/18 at 22:00 MATIAS HASTINGS August 29, 2018 11:07
[2018-08-29] MEDS: POLYETHYLENE GLYCOL 17 GM PACKET PO PRN (12:38)
[2018-08-29] MEDS: DOCUSATE SODIUM 100 MG CAP PO PRN (12:38)
--- NOTE | 2018-08-29 14:05 | PN ---
Date/Time of Note Date/Time of Note DATE: 08/29/18 TIME: 14:02 Assessment/Plan VTE Prophylaxis Risk score (from [facility] [place])>0 risk: 7 SCD applied (from [facility] [place]): No SCD contraindicated: other Pharmacological prophylaxis: NA/contraindicated Pharm contraindication: bleeding Lines/Catheters IV Catheter Type (from [facility]): PICC Line Central line still needed: Yes Urinary Cath still in place: No Assessment/Plan Hospital Course 1 septic shock secondary to right foot infection with possible soft tissue infection, necrotizing fasciitis (?). Now with gram-negative bacteremia + sp Rt BKA on 08/26/18 2. Diabetes. 3. Acute kidney injury on chronic kidney disease. 4. Hyponatremia. 5. Hypotension, likely secondary to #1. 6. Right lower extremity foul smelling wounds. 7. Anemia, likely anemia of chronic disease, no blood loss no history of GI bleeding 8 Leukocytosis 9 Metabolic acidosis Assessment/Plan - med surg -cr. is down -bowel regime -dr De La Rosa vascular surgeon, communicated - cw vancomycin/zosyn, - WBC trending down - FU ID recs - cw NS gentle - Repeat H/H - CW Lantus/ mealtime insulin - restart bp meds - gi prophylaxis is protonix -dvt PROPHYLAXIS , unable to tolerate, anemia. Result Diagram: 08/29/1853008/29/18530 Results 24hrs Laboratory Tests Test 08/28/18 15:50 08/28/18 17:10 08/28/18 20:05 08/28/18 21:28 Urine Color YELLOW Urine Clarity SLIGHTLY CLOUDY A Urine pH 5.0 Urine Specific 1.016 [place] Urine Ketones NEGATIVE Urine Nitrite NEGATIVE Urine Bilirubin NEGATIVE Urine Urobilinogen NEGATIVE Urine Leukocyte NEGATIVE Esterase Urine Microscopic 0 RBC Urine Microscopic 2 WBC Urine Amorphous FEW A Crystals Urine Bacteria FEW A Urine Hemoglobin 3+ H Urine Glucose 1+ H Urine Total 2+ H Protein Bedside Glucose 165 125 112 Test 08/29/18 05:31 08/29/18 08:04 08/29/18 12:16 White Blood Count 14.3 #H Red Blood Count 2.56 L Hemoglobin 7.5 L Hematocrit 22.5 L Mean Corpuscular 87.9 Volume Mean Corpuscular 29.3 Hemoglobin Mean Corpuscular 33.3 Hemoglobin Concent Red Cell 13.8 Distribution Width Platelet Count 330 Mean Platelet 9.3 Volume Immature 3.800 H Granulocytes % Neutrophils % 77.3 H Lymphocytes % 13.7 L Monocytes % 4.8 Eosinophils % 0.3 Basophils % 0.1 Nucleated Red 0.0 Blood Cells % Immature 0.540 H Granulocytes # Neutrophils # 11.1 H Lymphocytes # 2.0 Monocytes # 0.7 Eosinophils # 0.1 Basophils # 0.0 Nucleated Red 0.0 Blood Cells # Sodium Level 140 Potassium Level 3.3 L Chloride Level 111 H Carbon Dioxide 20 L Level Anion Gap 9 Blood Urea 40 H Nitrogen Creatinine 2.08 H Est Glomerular 34 L Filtrat Rate mL/min Glucose Level 71 # Calcium Level 7.7 L Bedside Glucose 83 84 Subjective 24 Hr Interval Summary Gastrointestinal: constipation Exam/Review of Systems Exam Vitals Vital Signs Date Temp Pulse Resp B/P (MAP) Pulse Ox O2 O2 Flow FiO2 Time Delivery Rate 08/29/18 98.2 90 16 153/95 98 Room Air 07:20 (114) Intake and Output 08/28/18 08/28/18 08/29/18 1515:00 23:00 07:00 IntakeIntake Total 690 ml 2520 ml 1550 ml OutputOutput Total 1200 ml 1645 ml 2280 ml BalanceBalance -510 ml 875 ml -730 ml Constitutional: alert, oriented Psych: no complaints Neck: supple Respiratory: clear to auscultation Cardiovascular: regular rate and rhythm Gastrointestinal: soft Musculoskeletal: other (right BKA. left foot 1. II toes are disciolorated) Results Results 24hrs Laboratory Tests Test 08/28/18 15:50 08/28/18 17:10 08/28/18 20:05 08/28/18 21:28 Urine Color YELLOW Urine Clarity SLIGHTLY CLOUDY A Urine pH 5.0 Urine Specific 1.016 [place] Urine Ketones NEGATIVE Urine Nitrite NEGATIVE Urine Bilirubin NEGATIVE Urine Urobilinogen NEGATIVE Urine Leukocyte NEGATIVE Esterase Urine Microscopic 0 RBC Urine Microscopic 2 WBC Urine Amorphous FEW A Crystals Urine Bacteria FEW A Urine Hemoglobin 3+ H Urine Glucose 1+ H Urine Total 2+ H Protein Bedside Glucose 165 125 112 Test 08/29/18 05:31 08/29/18 08:04 08/29/18 12:16 White Blood Count 14.3 #H Red Blood Count 2.56 L Hemoglobin 7.5 L Hematocrit 22.5 L Mean Corpuscular 87.9 Volume Mean Corpuscular 29.3 Hemoglobin Mean Corpuscular 33.3 Hemoglobin Concent Red Cell 13.8 Distribution Width Platelet Count 330 Mean Platelet 9.3 Volume Immature 3.800 H Granulocytes % Neutrophils % 77.3 H Lymphocytes % 13.7 L Monocytes % 4.8 Eosinophils % 0.3 Basophils % 0.1 Nucleated Red 0.0 Blood Cells % Immature 0.540 H Granulocytes # Neutrophils # 11.1 H Lymphocytes # 2.0 Monocytes # 0.7 Eosinophils # 0.1 Basophils # 0.0 Nucleated Red 0.0 Blood Cells # Sodium Level 140 Potassium Level 3.3 L Chloride Level 111 H Carbon Dioxide 20 L Level Anion Gap 9 Blood Urea 40 H Nitrogen Creatinine 2.08 H Est Glomerular 34 L Filtrat Rate mL/min Glucose Level 71 # Calcium Level 7.7 L Bedside Glucose 83 84 Medications Medication Current Medications Ferrous Sulfate (Ferrous Sulfate (Ec)) 325 mg DAILY PO Last administered on 08/29/18at 08:58; Admin Dose 325 MG; Start 08/24/18 at 09:00 Linagliptin (Tradjenta) 5 mg DAILY PO Last administered on 08/29/18at 08:58; Admin Dose 5 MG; Start 08/24/18 at 09:00 Pentoxifylline (Trental) 400 mg TID PO Last administered on 08/29/18at 12:38; Ad min Dose 400 MG; Start 08/24/18 at 09:00 Miscellaneous Information 1 ea NOTE XX ; Start 08/24/18 at 02:30 Glucose (Glutose) 15 gm Q15M PRN PO DECREASED GLUCOSE; Start 08/24/18 at 02:30 Glucose (Glutose) 22.5 gm Q15M PRN PO DECREASED GLUCOSE; Start 08/24/18 at 02:30 Dextrose (D50w Syringe) 25 ml Q15M PRN IV DECREASED GLUCOSE; Start 08/24/18 at 02:30 Dextrose (D50w Syringe) 50 ml Q15M PRN IV DECREASED GLUCOSE; Start 08/24/18 at 02:30 Glucagon (Glucagen) 1 mg Q15M PRN IM DECREASED GLUCOSE; Start 08/24/18 at 02:30 Glucose (Glutose) 15 gm Q15M PRN BUCCAL DECREASED GLUCOSE; Start 08/24/18 at 0 2:30 Pantoprazole (Protonix Tab) 40 mg DAILY@06 PO Last administered on 08/29/18 05:50; Admin Dose 40 MG; Start 08/24/18 at 06:00 Acetaminophen (Tylenol Tab) 650 mg Q6H PRN PO MILD PAIN(1-3)OR ELEVATED TEMP Last administered on 08/27/18 21:07; Admin Dose 650 MG; Start 08/24/18 at 03:00 Ondansetron HCl (Zofran Inj) 4 mg Q6H PRN IV NAUSEA AND/OR VOMITING Last administered on 08/25/18 09:10; Admin Dose 4 MG; Start 08/24/18 at 03:00 Miscellaneous Information (* Miscellaneous Pharmacy Order) Zosyn per pharmacy ONCE XX ; Start 08/24/18 at 03:00 Acetaminophen/ Hydrocodone Bitart ([place] (5/325)) 1 tab Q6H PRN PO MODERATE PAIN LEVEL 4-6 Last administered on 08/27/18 06:18; Admin Dose 1 TAB; Start 08/24/18 at 03:00 Miscellaneous Information (Pending Santyl Order For Wound Care) This patient mora. .. PRN PRN XX WOUND CARE; Start 08/24/18 at 03:00 Collagenase (Santyl) 1 applic DAILY TOP Last administered on 08/27/18 08:26; Admin Dose 1 APPLIC; Start 08/24/18 at 09:00 Collagenase (Santyl) 1 applic DAILY PRN TOP PRN; Start 08/24/18 at 09:00 Insulin Aspart (Novolog Insulin Pen) NOVOLOG *MILD* ALGORITHM WITH MEALS BEDTIME SC Last administered on 08/28/18 17:13; Admin Dose 1 UNIT; Start 07/28 01/14 at 08:00 Diagnostic Test (Pha) (Accu-Chek) 1 ea 02 XX Last administered on 08/25/18 01:41; Admin Dose 1 EA; Start 08/25/18 at 02:00 Sodium Hypochlorite (Dakins Diluted ()) 1 applic BID TP Last administered on 08/27/18 21:14; Admin Dose 1 APPLIC; Start 08/24/18 at 21:00 Diagnostic Test (Pha) (Accu-Chek) 1 ea 02 XX ; Start 08/26/18 at 02:00 Docusate Sodium (Colace) 100 mg BID PRN PO CONSTIPATION Last administered on 08/29/18 12:38; Admin Dose 100 MG; Start 08/28/18 at 09:00 Polyethylene Glycol (Miralax) 17 gm DAILY PRN PO CONSTIPATION Last administered on 08/29/18 12:38; Admin Dose 17 GM; Start 08/28/18 at 09:00 Sodium Chloride 1,000 ml @ 25 mls/hr Q24H IV Last administered on 08/29/18 09:02; Admin Dose 25 MLS/HR; Start 08/28/18 at 09:00 Insulin Aspart (Novolog Insulin Pen) 6 unit WITH MEALS SC Last administered on 08/28/18 17:12; Admin Dose 6 UNIT; Start 08/28/18 at 17:35 Insulin Glargine (Lantus) 24 units DAILY@2000 SC Last administered on 08/28/18 20:10; Admin Dose 24 UNITS; Start 08/28/18 at 20:00 Fluconazole (Diflucan) 100 mg DAILY PO Last administered on 08/29/18 08:58; Admin Dose 100 MG; Start 08/28/18 at 14:30 Piperacillin Sod/ Tazobactam Sod 50 ml @ 100 mls/hr Q8 IVPB Last administered on 08/29/18 05:46; Admin Dose 100 MLS/HR; Start 08/28/18 at 22:00 TEODORO RIDER August 29, 2018 14:05
[2018-08-29] MEDS ORDERED: POLYETHYLENE GLYCOL 17 GM PACKET PO PRN (14:30)
[2018-08-29 15:00] VITALS: BP 150/85; PULSE 100; RESP 20
[2018-08-29] MEDS: AMLODIPINE 5 MG TAB PO SCH (15:46)
[2018-08-29 20:00] VITALS: BP 151/92; PULSE 95; RESP 18
[2018-08-29] MEDS: INSULIN GLARGINE [LANTus] (100 UNITS/ML) SYG SC SCH (21:51)
[2018-08-30 02:00] VITALS: BP 138/92; PULSE 87; RESP 18
[2018-08-30] MEDS: ACCU-CHEK XX SCH ×2 (02:00)
[2018-08-30] MEDS: PANTOPRAZOLE (EC) 40 MG TAB PO SCH (06:12)
[2018-08-30] MEDS: PIPER-TAZO 2.25 GM (PMX) 50 ML IVPB SCH (06:14)
[2018-08-30] MEDS: INSULIN ASPART [NOVOLOG] 3 ML PEN SC SCH ×5 (08:00→21:00)
[2018-08-30 08:05] VITALS: BP 157/96; PULSE 86; RESP 18
[2018-08-30] MEDS: SOD CHLORIDE 0.9% 1,000 ML IV SCH (08:39)
[2018-08-30] MEDS: PENTOXIFYLLINE (SR) 400 MG TAB PO SCH ×3 (08:56→21:04)
[2018-08-30] MEDS: FERROUS SULFATE (EC) 325 MG TAB PO SCH (08:57)
[2018-08-30] MEDS: FLUCONAZOLE 100 MG TAB PO SCH (08:57)
[2018-08-30] MEDS: AMLODIPINE 5 MG TAB PO SCH (08:58)
[2018-08-30] MEDS: LINAGLIPTIN 5 MG TABLET PO SCH (08:58)
[2018-08-30] MEDS: DAKINS 0.0125%(1/40) 473 ML SOLUTION TP SCH ×2 (09:00→21:00)
[2018-08-30] MEDS: COLLAGENASE 5 GM (UD JAR) TOP SCH (09:00)
--- NOTE | 2018-08-30 09:46 | CONS ---
Assessment/Plan Assessment/Plan Hospital Course (Demo Recall) Repeat MRI L foot revealed no OM. Will need to complete 2 weeks abx for VRE/Bacteroides bacteremia either with Zosyn or PO Zyvox and PO Flagyl===> last dose 09/07/18. Continue monitoring RLE stump and f/u podiatry rec-s Consultation Date/Type/Reason Admit Date/Time Aug 23, 2018 at 21:27 Initial Consult Date 08/25/18 Type of Consult id Date/Time of Note DATE: 08/30/18 TIME: 09:44 Exam/Review of Systems Exam Vitals Vital Signs Date Temp Pulse Resp B/P (MAP) Pulse Ox O2 O2 Flow FiO2 Time Delivery Rate 08/30/18 98.1 86 18 157/96 97 Room Air 08:05 (116) Intake and Output 08/29/18 08/29/18 08/30/18 1515:00 23:00 07:00 IntakeIntake Total 480 ml 600 ml 645 ml OutputOutput Total 875 ml 400 ml 1400 ml BalanceBalance -395 ml 200 ml -755 ml Results Result Diagram: 08/30/18 0533 08/30/18 0533 Results 24hrs Laboratory Tests Test 08/29/18 12:16 08/29/18 17:19 08/29/18 21:40 08/30/18 05:33 Bedside Glucose 84 91 95 White Blood Count 11.5 H Red Blood Count 2.58 L Hemoglobin 7.7 L Hematocrit 22.4 L Mean Corpuscular Volume 86.8 Mean Corpuscular 29.8 Hemoglobin Mean Corpuscular 34.4 Hemoglobin Concent Red Cell Distribution 13.3 Width Platelet Count 302 Mean Platelet Volume 9.1 Immature Granulocytes % 3.700 H Neutrophils % 76.5 Lymphocytes % 14.5 L Monocytes % 4.2 Eosinophils % 0.9 Basophils % 0.2 Nucleated Red Blood 0.0 Cells % Immature Granulocytes # 0.430 H Neutrophils # 8.8 H Lymphocytes # 1.7 Monocytes # 0.5 Eosinophils # 0.1 Basophils # 0.0 Nucleated Red Blood 0.0 Cells # Sodium Level 141 Potassium Level 3.5 Chloride Level 112 H Carbon Dioxide Level 22 Anion Gap 7 Blood Urea Nitrogen 31 H Creatinine 1.81 H Est Glomerular Filtrat 39 L Rate mL/min Glucose Level 76 Calcium Level 7.8 L Test 08/30/18 07:38 Bedside Glucose 73 Medications Medication Current Medications Ferrous Sulfate (Ferrous Sulfate (Ec)) 325 mg DAILY PO Last administered on 08/30/18 08:57; Admin Dose 325 MG; Start 08/24/18 at 09:00 Linagliptin (Tradjenta) 5 mg DAILY PO Last administered on 08/30/18 08:58; Admin Dose 5 MG; Start 08/24/18 at 09:00 Pentoxifylline (Trental) 400 mg TID PO Last administered on 08/30/18 08:56; Admin Dose 400 MG; Start 08/24/18 at 09:00 Miscellaneous Information 1 ea NOTE XX ; Start 08/24/18 at 02:30 Glucose (Glutose) 15 gm Q15M PRN PO DECREASED GLUCOSE; Start 08/24/18 at 02:30 Glucose (Glutose) 22.5 gm Q15M PRN PO DECREASED GLUCOSE; Start 08/24/18 at 02:30 Dextrose (D50w Syringe) 25 ml Q15M PRN IV DECREASED GLUCOSE; Start 08/24/18 at 02:30 Dextrose (D50w Syringe) 50 ml Q15M PRN IV DECREASED GLUCOSE; Start 08/24/18 at 02:30 Glucagon (Glucagen) 1 mg Q15M PRN IM DECREASED GLUCOSE; Start 08/24/18 at 02:30 Glucose (Glutose) 15 gm Q15M PRN BUCCAL DECREASED GLUCOSE; Start 08/24/18 at 02:30 Pantoprazole (Protonix Tab) 40 mg DAILY@06 PO Last administered on 08/30/18at 06:12; Admin Dose 40 MG; Start 08/24/18 at 06:00 Acetaminophen (Tylenol Tab) 650 mg Q6H PRN PO MILD PAIN(1-3)OR ELEVATED TEMP Last administered on 08/27/18at 21:07; Admin Dose 650 MG; Start 08/24/18 at 03:00 Ondansetron HCl (Zofran Inj) 4 mg Q6H PRN IV NAUSEA AND/OR VOMITING Last administered on 08/25/18at 09:10; Admin Dose 4 MG; Start 08/24/18 at 03:00 Miscellaneous Information (* Miscellaneous Pharmacy Order) Zosyn per pharmacy ONCE XX ; Start 08/24/18 at 03:00 Acetaminophen/ Hydrocodone Bitart ([place] (5/325)) 1 tab Q6H PRN PO MODERATE PAIN LEVEL 4-6 Last administered on 08/27/18 06:18; Admin Dose 1 TAB; Start 08/24/18 at 03:00 Miscellaneous Information (Pending Santyl Order For Wound Care) This patient mora... PRN PRN XX WOUND CARE; Start 08/24/18 at 03:00 Collagenase (Santyl) 1 applic DAILY TOP Last administered on 08/27/18 08:26; Admin Dose 1 APPLIC; Start 08/24/18 at 09:00 Collagenase (Santyl) 1 applic DAILY PRN TOP PRN; Start 08/24/18 at 09:00 Insulin Aspart (Novolog Insulin Pen) NOVOLOG *MILD* ALGORITHM WITH MEALS BEDTIME SC Last administered on 08/28/18 17:13; Admin Dose 1 UNIT; Start 08/24/18 at 08:00 Diagnostic Test (Pha) (Accu-Chek) 1 ea 02 XX Last administered on 08/25/18 01:41; Admin Dose 1 EA; Start 08/25/18 at 02:00 Sodium Hypochlorite (Dakins Diluted ()) 1 applic BID TP Last administered on 08/27/18 21:14; Admin Dose 1 APPLIC; Start 08/24/18 at 21:00 Diagnostic Test (Pha) (Accu-Chek) 1 ea 02 XX ; Start 08/26/18 at 02:00 Docusate Sodium (Colace) 100 mg BID PRN PO CONSTIPATION Last administered on 12:38; Admin Dose 100 MG; Start 08/28/18 at 09:00 Polyethylene Glycol (Miralax) 17 gm DAILY PRN PO CONSTIPATION Last administered on 08/29/18 12:38; Admin Dose 17 GM; Start 08/28/18 at 09:00 Sodium Chloride 1,000 ml @ 25 mls/hr Q24H IV Last administered on 08/29/18 09:02; Admin Dose 25 MLS/HR; Start 08/28/18 at 09:00 Insulin Aspart (Novolog Insulin Pen) 6 unit WITH MEALS SC Last administered on 08/28/18 17:12; Admin Dose 6 UNIT; Start 08/28/18 at 17:35 Insulin Glargine (Lantus) 24 units DAILY@2000 SC Last administered on 08/29/18 21:51; Admin Dose 24 UNITS; Start 08/28/18 at 20:00 Fluconazole (Diflucan) 100 mg DAILY PO Last administered on 08/30/18 08:57; Admin Dose 100 MG; Start 08/28/18 at 14:30 Piperacillin Sod/ Tazobactam Sod 50 ml @ 100 mls/hr Q8 IVPB Last administered on 08/30/18 06:14; Admin Dose 100 MLS/HR; Start 08/28/18 at 22:00 Polyethylene Glycol (Miralax) 17 gm DAILY PRN PO CONSTIPATION; Start 08/29/18 at 14:30 Amlodipine Besylate (Norvasc) 5 mg DAILY PO Last administered on 08/30/18 08:58; Admin Dose 5 MG; Start 08/29/18 at 14:30 ROXANNA SOMERS NP August 30, 2018 09:46
--- NOTE | 2018-08-30 11:22 | CONS ---
Consultation Date/Type/Reason Admit Date/Time Aug 23, 2018 at 21:27 Initial Consult Date 08/25/18 Type of Consult SUBJECTIVE: Patient is he is awake, alert, afebrile. No acute events over night. S/P right below-knee amputation 08/27/18 VS: Stable T: 98.1 LABS: Reviewed. WBC-11.5 -Improving. Repeat MRI of Left foot: IMPRESSION: 1. Status post amputation of the fifth ray to the level of the proximal diaphysis of the fifth metatarsal and status post third and fourth digits amputa tion at the level of the MTP joints. 2. Mild reactive marrow edema at the amputation margin of the fifth metatarsal without marrow infiltrative signal to suggest osteomyelitis at this time. 3. Stress-related/reactive edema at the base of the second metatarsal noted again. Degenerative changes as above. 4. Diffuse subcutaneous edema in the dorsum of the foot and remaining toes and diffuse muscle edema. Microbiology: Blood culture on admission grew VRE susceptible to ampicillin and Bacteroides fragilis repeat blood cultures negative, left foot wound culture grew Corynebacterium, VRE, coag negative staph, yeast bacteroid fragilis Lt foot Cx: GRAM STAIN Final EPITHELIAL CELLS 1+ GRAM POS COCCI IN CLUSTER 1+ GRAM POSITIVE RODS 1+ GRAM NEGATIVE RODS 1+ WOUND CULTURE Preliminary Organism 1 CORYNEBACTERIUM SPECIES QUANTITY 3+ Organism 2 VANCO RESISTANT ENTEROCOCCUS QUANTITY SCANT GROWTH . MULTI DRUG RESISTANT ORGANISM Organism 3 COAGULASE NEGATIVE STAPH QUANTITY SCANT GROWTH Organism 4 YEAST QUANTITY 1+ RE: CORYNEBACTERIUM SPECIES Clinical susceptibiltiy testing standard for this organism have not been established. However, this organism has demonstrated in vitro growth inhibition to the following chemotherapeutic agents listed as susceptible. Indwelling's: Right upper extremity PICC line Antimicrobials: Zosyn and Diflucan Physical examination: GEN: This is a well-developed well-nourished middle-aged male, who is in no distress. HENT: Head atraumatic normocephalic ;sclera nonicteric. Neck is supple. PULM: Chest rise symmetrical, breath sounds clear. Heart: S1-S2. Abdomen soft bowel sounds present. Extremities with bilateral lower extremity dressings present with purulent drainage and foul order also patient has gangrene all stools Assessment: 1. Severe sepsis, present on admission 2. Bilateral lower extremity's gangrene/osteomyelitis 3. Peripheral arterial disease 4. Diabetes 5. Acute kidney injury 6. Anemia Plan: Pt is stable. Repeat MRI L foot revealed no OM. Will need to complete 2 weeks abx for VRE/Bacteroides bacteremia either with Zosyn or PO Zyvox and PO Flagyl===> last dose 09/07/18. Continue monitoring RLE stump and f/u podiatry rec-s Date/Time of Note DATE: 08/30/18 TIME: 11:18 Exam/Review of Systems Exam Vitals Vital Signs Date Temp Pulse Resp B/P (MAP) Pulse Ox O2 O2 Flow FiO2 Time Delivery Rate 08/30/18 98.1 86 18 157/96 97 Room Air 08:05 (116) Intake and Output 08/29/18 08/29/18 08/30/18 1515:00 23:00 07:00 IntakeIntake Total 480 ml 600 ml 645 ml OutputOutput Total 875 ml 400 ml 1400 ml BalanceBalance -395 ml 200 ml -755 ml Results Result Diagram: 08/30/18 0533 08/30/18 0533 Results 24hrs Laboratory Tests Test 08/29/18 12:16 08/29/18 17:19 08/29/18 21:40 08/30/18 05:33 Bedside Glucose 84 91 95 White Blood Count 11.5 H Red Blood Count 2.58 L Hemoglobin 7.7 L Hematocrit 22.4 L Mean Corpuscular Volume 86.8 Mean Corpuscular 29.8 Hemoglobin Mean Corpuscular 34.4 Hemoglobin Concent Red Cell Distribution 13.3 Width Platelet Count 302 Mean Platelet Volume 9.1 Immature Granulocytes % 3.700 H Neutrophils % 76.5 Lymphocytes % 14.5 L Monocytes % 4.2 Eosinophils % 0.9 Basophils % 0.2 Nucleated Red Blood 0.0 Cells % Immature Granulocytes # 0.430 H Neutrophils # 8.8 H Lymphocytes # 1.7 Monocytes # 0.5 Eosinophils # 0.1 Basophils # 0.0 Nucleated Red Blood 0.0 Cells # Sodium Level 141 Potassium Level 3.5 Chloride Level 112 H Carbon Dioxide Level 22 Anion Gap 7 Blood Urea Nitrogen 31 H Creatinine 1.81 H Est Glomerular Filtrat 39 L Rate mL/min Glucose Level 76 Calcium Level 7.8 L Test 08/30/18 07:38 Bedside Glucose 73 Medications Medication Current Medications Ferrous Sulfate (Ferrous Sulfate (Ec)) 325 mg DAILY PO Last administered on 08/30/18 08:57; Admin Dose 325 MG; Start 08/24/18 at 09:00 Linagliptin (Tradjenta) 5 mg DAILY PO Last administered on 08/30/18 08:58; Admin Dose 5 MG; Start 08/24/18 at 09:00 Pentoxifylline (Trental) 400 mg TID PO Last administered on 08/30/18 08:56; Admin Dose 400 MG; Start 08/24/18 at 09:00 Miscellaneous Information 1 ea NOTE XX ; Start 08/24/18 at 02:30 Glucose (Glutose) 15 gm Q15M PRN PO DECREASED GLUCOSE; Start 08/24/18 at 02:30 Glucose (Glutose) 22.5 gm Q15M PRN PO DECREASED GLUCOSE; Start 08/24/18 at 02:30 Dextrose (D50w Syringe) 25 ml Q15M PRN IV DECREASED GLUCOSE; Start 08/24/18 at 02:30 Dextrose (D50w Syringe) 50 ml Q15M PRN IV DECREASED GLUCOSE; Start 08/24/18 at 02:30 Glucagon (Glucagen) 1 mg Q15M PRN IM DECREASED GLUCOSE; Start 08/24/18 at 02:30 Glucose (Glutose) 15 gm Q15M PRN BUCCAL DECREASED GLUCOSE; Start 08/24/18 at 02:30 Pantoprazole (Protonix Tab) 40 mg DAILY@06 PO Last administered on 08/30/18at 06:12; Admin Dose 40 MG; Start 08/24/18 at 06:00 Acetaminophen (Tylenol Tab) 650 mg Q6H PRN PO MILD PAIN(1-3)OR ELEVATED TEMP Last administered on 08/27/18at 21:07; Admin Dose 650 MG; Start 08/24/18 at 03:00 Ondansetron HCl (Zofran Inj) 4 mg Q6H PRN IV NAUSEA AND/OR VOMITING Last administered on 08/25/18at 09:10; Admin Dose 4 MG; Start 08/24/18 at 03:00 Miscellaneous Information (* Miscellaneous Pharmacy Order) Zosyn per pharmacy ONCE XX ; Start 08/24/18 at 03:00 Acetaminophen/ Hydrocodone Bitart ([place] (5/325)) 1 tab Q6H PRN PO MODERATE PAIN LEVEL 4-6 Last administered on 08/27/18 06:18; Admin Dose 1 TAB; Start 08/24/18 at 03:00 Miscellaneous Information (Pending Santyl Order For Wound Care) This patient mora... PRN PRN XX WOUND CARE; Start 08/24/18 at 03:00 Collagenase (Santyl) 1 applic DAILY TOP Last administered on 08/27/18 08:26; Admin Dose 1 APPLIC; Start 08/24/18 at 09:00 Collagenase (Santyl) 1 applic DAILY PRN TOP PRN; Start 08/24/18 at 09:00 Insulin Aspart (Novolog Insulin Pen) NOVOLOG *MILD* ALGORITHM WITH MEALS BEDTIME SC Last administered on 08/28/18 17:13; Admin Dose 1 UNIT; Start 08/24/18 at 08:00 Diagnostic Test (Pha) (Accu-Chek) 1 ea 02 XX Last administered on 08/25/18 01:41; Admin Dose 1 EA; Start 08/25/18 at 02:00 Sodium Hypochlorite (Dakins Diluted (40)) 1 applic BID TP Last administered on 08/27/18 21:14; Admin Dose 1 APPLIC; Start 08/24/18 at 21:00 Diagnostic Test (Pha) (Accu-Chek) 1 ea 02 XX ; Start 08/26/18 at 02:00 Docusate Sodium (Colace) 100 mg BID PRN PO CONSTIPATION Last administered on 08/29/18 12:38; Admin Dose 100 MG; Start 08/28/18 at 09:00 Polyethylene Glycol (Miralax) 17 gm DAILY PRN PO CONSTIPATION Last administered on 08/29/18 12:38; Admin Dose 17 GM; Start 08/28/18 at 09:00 Sodium Chloride 1,000 ml @ 25 mls/hr Q24H IV Last administered on 08/29/18 09:02; Admin Dose 25 MLS/HR; Start 08/28/18 at 09:00 Insulin Aspart (Novolog Insulin Pen) 6 unit WITH MEALS SC Last administered on 08/28/18 17:12; Admin Dose 6 UNIT; Start 08/28/18 at 17:35 Insulin Glargine (Lantus) 24 units DAILY@2000 SC Last administered on 08/29/18 21:51; Admin Dose 24 UNITS; Start 08/28/18 at 20:00 Fluconazole (Diflucan) 100 mg DAILY PO Last administered on 08/30/18 08:57; Admin Dose 100 MG; Start 08/28/18 at 14:30 Piperacillin Sod/ Tazobactam Sod 50 ml @ 100 mls/hr Q8 IVPB Last administered on 08/30/18 06:14; Admin Dose 100 MLS/HR; Start 08/28/18 at 22:00 Polyethylene Glycol (Miralax) 17 gm DAILY PRN PO CONSTIPATION; Start 08/29/18 at 14:30 Amlodipine Besylate (Norvasc) 5 mg DAILY PO Last administered on 08/30/18 08:58; Admin Dose 5 MG; Start 08/29/18 at 14:30 MATIAS HASTINGS August 30, 2018 11:22
--- NOTE | 2018-08-30 11:50 | PN ---
Date/Time of Note Date/Time of Note DATE: 08/30/18 TIME: 11:44 Assessment/Plan VTE Prophylaxis Risk score (from [facility] [place])>0 risk: 7 SCD applied (from [facility] [place]): No SCD contraindicated: other Pharmacological prophylaxis: NA/contraindicated Pharm contraindication: anticoag not tolerated Lines/Catheters IV Catheter Type (from [facility]): Peripheral IV Urinary Cath still in place: No Assessment/Plan Hospital Course 1 septic shock secondary to right foot infection with possible soft tissue infection, necrotizing fasciitis (?). Now with gram-negative bacteremia + sp Rt BKA on 08/26/18 2. Diabetes mellitus type II, controled. 3. Acute kidney injury on chronic kidney disease. 4. Hyponatremia, resolved. 5. Hypotension,resolved 6. Right BKA 7. Anemia, likely anemia of chronic disease, no blood loss no history of GI bleeding 8 Leukocytosis 9 hypocalcemia Assessment/Plan - med surg -cr. is down -bowel regime -lasix once today -dr De La Rosa vascular surgeon appreciated - cw vancomycin/zosyn, - WBC trending down - FU ID recs - cw NS gentle - Repeat H/H - CW Lantus/ -d.c mealtime due to low luis, low BS -c/w bp meds , Amp. 10 mg po - gi prophylaxis is Protonix -dvt PROPHYLAXIS , unable to tolerate, anemia. Result Diagram: 08/30/1833 08/30/18 0533 Results 24hrs Laboratory Tests Test 08/29/18 12:16 08/29/18 17:19 08/29/18 21:40 08/30/18 05:33 Bedside Glucose 84 91 95 White Blood Count 11.5 H Red Blood Count 2.58 L Hemoglobin 7.7 L Hematocrit 22.4 L Mean Corpuscular Volume 86.8 Mean Corpuscular 29.8 Hemoglobin Mean Corpuscular 34.4 Hemoglobin Concent Red Cell Distribution 13.3 Width Platelet Count 302 Mean Platelet Volume 9.1 Immature Granulocytes % 3.700 H Neutrophils % 76.5 Lymphocytes % 14.5 L Monocytes % 4.2 Eosinophils % 0.9 Basophils % 0.2 Nucleated Red Blood 0.0 Cells % Immature Granulocytes # 0.430 H Neutrophils # 8.8 H Lymphocytes # 1.7 Monocytes # 0.5 Eosinophils # 0.1 Basophils # 0.0 Nucleated Red Blood 0.0 Cells # Sodium Level 141 Potassium Level 3.5 Chloride Level 112 H Carbon Dioxide Level 22 Anion Gap 7 Blood Urea Nitrogen 31 H Creatinine 1.81 H Est Glomerular Filtrat 39 L Rate mL/min Glucose Level 76 Calcium Level 7.8 L Test 08/30/18 07:38 Bedside Glucose 73 Subjective 24 Hr Interval Summary Gastrointestinal: constipation (6 days) Exam/Review of Systems Exam Vitals Vital Signs Date Temp Pulse Resp B/P (MAP) Pulse Ox O2 O2 Flow FiO2 Time Delivery Rate 08/30/18 98.1 86 18 157/96 97 Room Air 08:05 (116) Intake and Output 08/29/18 08/29/18 08/30/18 1515:00 23:00 07:00 IntakeIntake Total 480 ml 600 ml 645 ml OutputOutput Total 875 ml 400 ml 1400 ml BalanceBalance -395 ml 200 ml -755 ml Constitutional: alert, oriented Cardiovascular: regular rate and rhythm Gastrointestinal: soft Musculoskeletal: muscle weakness, swelling (rBKA with dressing on) Results Results 24hrs Laboratory Tests Test 08/29/18 12:16 08/29/18 17:19 08/29/18 21:40 08/30/18 05:33 Bedside Glucose 84 91 95 White Blood Count 11.5 H Red Blood Count 2.58 L Hemoglobin 7.7 L Hematocrit 22.4 L Mean Corpuscular Volume 86.8 Mean Corpuscular 29.8 Hemoglobin Mean Corpuscular 34.4 Hemoglobin Concent Red Cell Distribution 13.3 Width Platelet Count 302 Mean Platelet Volume 9.1 Immature Granulocytes % 3.700 H Neutrophils % 76.5 Lymphocytes % 14.5 L Monocytes % 4.2 Eosinophils % 0.9 Basophils % 0.2 Nucleated Red Blood 0.0 Cells % Immature Granulocytes # 0.430 H Neutrophils # 8.8 H Lymphocytes # 1.7 Monocytes # 0.5 Eosinophils # 0.1 Basophils # 0.0 Nucleated Red Blood 0.0 Cells # Sodium Level 141 Potassium Level 3.5 Chloride Level 112 H Carbon Dioxide Level 22 Anion Gap 7 Blood Urea Nitrogen 31 H Creatinine 1.81 H Est Glomerular Filtrat 39 L Rate mL/min Glucose Level 76 Calcium Level 7.8 L Test 08/30/18 07:38 Bedside Glucose 73 Medications Medication Current Medications Ferrous Sulfate (Ferrous Sulfate (Ec)) 325 mg DAILY PO Last administered on 08/30/18at 08:57; Admin Dose 325 MG; Start 08/24/18 at 09:00 Linagliptin (Tradjenta) 5 mg DAILY PO Last administered on 08/30/18 08:58; Admin Dose 5 MG; Start 08/24/18 at 09:00 Pentoxifylline (Trental) 400 mg TID PO Last administered on 08/30/18 08:56; Admin Dose 400 MG; Start 08/24/18 at 09:00 Miscellaneous Information 1 ea NOTE XX ; Start 08/24/18 at 02:30 Glucose (Glutose) 15 gm Q15M PRN PO DECREASED GLUCOSE; Start 08/24/18 at 02:30 Glucose (Glutose) 22.5 gm Q15M PRN PO DECREASED GLUCOSE; Start 08/24/18 at 02:30 Dextrose (D50w Syringe) 25 ml Q15M PRN IV DECREASED GLUCOSE; Start 08/24/18 at 02:30 Dextrose (D50w Syringe) 50 ml Q15M PRN IV DECREASED GLUCOSE; Start 08/24/18 at 02:30 Glucagon (Glucagen) 1 mg Q15M PRN IM DECREASED GLUCOSE; Start 08/24/18 at 02:30 Glucose (Glutose) 15 gm Q15M PRN BUCCAL DECREASED GLUCOSE; Start 08/24/18 at 02:30 Pantoprazole (Protonix Tab) 40 mg DAILY@06 PO Last administered on 08/30/18 06:12; Admin Dose 40 MG; Start 08/24/18 at 06:00 Acetaminophen (Tylenol Tab) 650 mg Q6H PRN PO MILD PAIN(1-3)OR ELEVATED TEMP Last administered on 08/27/18 21:07; Admin Dose 650 MG; Start 08/24/18 at 03:00 Ondansetron HCl (Zofran Inj) 4 mg Q6H PRN IV NAUSEA AND/OR VOMITING Last administered on 08/25/18 09:10; Admin Dose 4 MG; Start 08/24/18 at 03:00 Miscellaneous Information (* Miscellaneous Pharmacy Order) Zosyn per pharmacy ON CE XX ; Start 08/24/18 at 03:00 Acetaminophen/ Hydrocodone Bitart ([place] (5/325)) 1 tab Q6H PRN PO MODERATE PAIN LEVEL 4-6 Last administered on 08/27/18 06:18; Admin Dose 1 TAB; Start 08/24/18 at 03:00 Miscellaneous Information (Pending Santyl Order For Wound Care) This patient mora... PRN PRN XX WOUND CARE; Start 08/24/18 at 03:00 Collagenase (Santyl) 1 applic DAILY TOP Last administered on 08/27/18 08:26; Admin Dose 1 APPLIC; Start 08/24/18 at 09:00 Collagenase (Santyl) 1 applic DAILY PRN TOP PRN; Start 08/24/18 at 09:00 Insulin Aspart (Novolog Insulin Pen) NOVOLOG *MILD* ALGORITHM WITH MEALS BEDTIME SC Last administered on 08/28/18 17:13; Admin Dose 1 UNIT; Start 08/24/18 at 08:00 Diagnostic Test (Pha) (Accu-Chek) 1 ea 02 XX Last administered on 08/25/18 01:41; Admin Dose 1 EA; Start 08/25/18 at 02:00 Sodium Hypochlorite (Dakins Diluted ()) 1 applic BID TP Last administered on 08/27/18 21:14; Admin Dose 1 APPLIC; Start 08/24/18 at 21:00 Diagnostic Test (Pha) (Accu-Chek) 1 ea 02 XX ; Start 08/26/18 at 02:00 Docusate Sodium (Colace) 100 mg BID PRN PO CONSTIPATION Last administered on 08/29/18 12:38; Admin Dose 100 MG; Start 08/28/18 at 09:00 Polyethylene Glycol (Miralax) 17 gm DAILY PRN PO CONSTIPATION Last administered on 08/29/18 12:38; Admin Dose 17 GM; Start 08/28/18 at 09:00 Sodium Chloride 1,000 ml @ 25 mls/hr Q24H IV Last administered on 08/29/18 09:02; Admin Dose 25 MLS/HR; Start 08/28/18 at 09:00 Insulin Aspart (Novolog Insulin Pen) 6 unit WITH MEALS SC Last administered on 08/28/18 17:12; Admin Dose 6 UNIT; Start 08/28/18 at 17:35 Insulin Glargine (Lantus) 24 units DAILY@2000 SC Last administered on 08/29/18 21:51; Admin Dose 24 UNITS; Start 08/28/18 at 20:00 Fluconazole (Diflucan) 100 mg DAILY PO Last administered on 08/30/18at 08:57; Admin Dose 100 MG; Start 08/28/18 at 14:30 Piperacillin Sod/ Tazobactam Sod 50 ml @ 100 mls/hr Q8 IVPB Last administered on 08/30/18at 06:14; Admin Dose 100 MLS/HR; Start 08/28/18 at 22:00 Polyethylene Glycol (Miralax) 17 gm DAILY PRN PO CONSTIPATION; Start 08/29/18 at 14:30 Amlodipine Besylate (Norvasc) 5 mg DAILY PO Last administered on 08/30/18at 08:58; Admin Dose 5 MG; Start 08/29/18 at 14:30 Magnesium Citrate (Citroma) 300 ml ONCE ONCE PO ; Start 08/30/18 at 12:00; Stop 08/30/18 at 12:01; Status TEODORO [facility] August 30, 2018 11:50
[2018-08-30] MEDS ORDERED: FUROSEMIDE 20 MG INJ IM ONE (12:15)
[2018-08-30] MEDS ORDERED: MAGNESIUM CITRATE 300 ML BTL PO ONE (12:30)
[2018-08-30] MEDS: CALCIUM CARBONATE 500 MG CHEW TAB PO SCH ×2 (13:04→19:05)
[2018-08-30 20:00] VITALS: BP 165/93; PULSE 99; RESP 18
[2018-08-30] MEDS ORDERED: PIPER-TAZO 3.375 GM IV (PMX) 100 ML ONE (20:50)
[2018-08-30] MEDS: PIPER-TAZO 3.375 GM IV (PMX) 100 ML IVPB SCH (21:05)
[2018-08-30] MEDS: INSULIN GLARGINE [LANTus] (100 UNITS/ML) SYG SC SCH (21:06)
[2018-08-31] VITALS (10 sets, daily range): BP systolic 137–168; BP diastolic 66–99; PULSE 92–99; RESP 18
[2018-08-31] MEDS: ACCU-CHEK XX SCH (02:00)
[2018-08-31] MEDS: PANTOPRAZOLE (EC) 40 MG TAB PO SCH (06:02)
[2018-08-31] MEDS: PIPER-TAZO 3.375 GM IV (PMX) 100 ML IVPB SCH ×3 (06:02→22:19)
[2018-08-31] MEDS ORDERED: POTASSIUM CHLORIDE (SR) 20 MEQ TAB PO ONE (07:30)
[2018-08-31] MEDS: INSULIN ASPART [NOVOLOG] 3 ML PEN SC SCH ×4 (08:00→20:44)
[2018-08-31] MEDS: PENTOXIFYLLINE (SR) 400 MG TAB PO SCH ×3 (08:12→20:44)
[2018-08-31] MEDS: FLUCONAZOLE 100 MG TAB PO SCH (08:12)
[2018-08-31] MEDS: LINAGLIPTIN 5 MG TABLET PO SCH (08:12)
[2018-08-31] MEDS: FERROUS SULFATE (EC) 325 MG TAB PO SCH (08:12)
[2018-08-31] MEDS: CALCIUM CARBONATE 500 MG CHEW TAB PO SCH ×3 (08:12→20:44)
[2018-08-31] MEDS: AMLODIPINE 10 MG TAB PO SCH (08:13)
[2018-08-31] MEDS: DAKINS 0.0125%(1/40) 473 ML SOLUTION TP SCH ×2 (08:14→20:45)
[2018-08-31] MEDS: COLLAGENASE 5 GM (UD JAR) TOP SCH (08:14)
[2018-08-31] MEDS: SOD CHLORIDE 0.9% 1,000 ML IV SCH (08:15)
--- NOTE | 2018-08-31 13:34 | CONS ---
Assessment/Plan Assessment/Plan Hospital Course (Demo Recall) No acute changes overnight. Patient is status post right below-knee amputation yesterday he is alert in no distress and afebrile. Microbiology: Blood culture on admission grew VRE susceptible to ampicillin and gram-negative rods, repeat blood cultures and wound cultures pending Indwelling's: Right upper extremity PICC line Antimicrobials: Zosyn Physical examination: This is a well-developed well-nourished middle-aged male who is in no distress. Head atraumatic normocephalic sclera nonicteric. Neck is supple. Chest rise symmetrical, breath sounds clear. Heart: S1-S2. Abdomen soft bowel sounds present. Extremities with bilateral lower extremity dressings present with purulent drainage and foul order also patient has gangrene all stools Assessment: 1. Severe sepsis, present on admission 2. Bilateral lower extremity's gangrene/osteomyelitis 3. Peripheral arterial disease 4. Diabetes 5. Acute kidney injury 6. Anemia Plan: Stable, repeat bld cx neg, repeat MRI L foot revealed no OM. Will need to complete 2 weeks abx for VRE/Bacteroides bacteremia either with Zosyn or PO Zyvox and PO Flagyl===> last dose 09/07/18. Continue monitoring RLE stump and f/u podiatry rec-s Consultation Date/Type/Reason Admit Date/Time Aug 23, 2018 at 21:27 Initial Consult Date 08/25/18 Type of Consult id Date/Time of Note DATE: 08/31/18 TIME: 13:33 Exam/Review of Systems Exam Vitals Vital Signs Date Temp Pulse Resp B/P (MAP) Pulse Ox O2 O2 Flow FiO2 Time Delivery Rate 08/31/18 98.4 98 18 168/99 99 Room Air 07:50 (122) Intake and Output 08/30/18 08/30/18 08/31/18 1515:00 23:00 07:00 IntakeIntake Total 600 ml 640 ml OutputOutput Total 1500 ml 900 ml BalanceBalance -900 ml -260 ml Results Result Diagram: 08/31/18 0426 08/31/18 0426 Results 24hrs Laboratory Tests Test 08/30/18 17:22 08/30/18 21:02 08/31/18 04:26 08/31/18 07:44 Bedside Glucose 138 140 97 White Blood Count 11.4 H Red Blood Count 2.30 L Hemoglobin 6.8 *L Hematocrit 20.4 L Mean Corpuscular Volume 88.7 Mean Corpuscular 29.6 Hemoglobin Mean Corpuscular 33.3 Hemoglobin Concent Red Cell Distribution 13.4 Width Platelet Count 279 Mean Platelet Volume 9.3 Immature Granulocytes % 2.200 H Neutrophils % 80.0 H Lymphocytes % 13.0 L Monocytes % 3.8 Eosinophils % 0.9 Basophils % 0.1 Nucleated Red Blood 0.0 Cells % Immature Granulocytes # 0.250 H Neutrophils # 9.2 H Lymphocytes # 1.5 Monocytes # 0.4 Eosinophils # 0.1 Basophils # 0.0 Nucleated Red Blood 0.0 Cells # Sodium Level 142 Potassium Level 2.8 *L Chloride Level 111 H Carbon Dioxide Level 24 Anion Gap 7 Blood Urea Nitrogen 27 H Creatinine 1.70 H Est Glomerular Filtrat 42 L Rate mL/min Glucose Level 58 #L Calcium Level 7.8 L Test 08/31/18 12:23 Bedside Glucose 81 Medications Medication Current Medications Ferrous Sulfate (Ferrous Sulfate (Ec)) 325 mg DAILY PO Last administered on 08/31/18at 08:12; Admin Dose 325 MG; Start 08/24/18 at 09:00 Linagliptin (Tradjenta) 5 mg DAILY PO Last administered on 08/31/18at 08:12; Admin Dose 5 MG; Start 08/24/18 at 09:00 Pentoxifylline (Trental) 400 mg TID PO Last administered on 08/31/18at 08:12; Admin Dose 400 MG; Start 08/24/18 at 09:00 Miscellaneous Information 1 ea NOTE XX ; Start 08/24/18 at 02:30 Glucose (Glutose) 15 gm Q15M PRN PO DECREASED GLUCOSE; Start 08/24/18 at 02:30 Glucose (Glutose) 22.5 gm Q15M PRN PO DECREASED GLUCOSE; Start 08/24/18 at 02:30 Dextrose (D50w Syringe) 25 ml Q15M PRN IV DECREASED GLUCOSE; Start 08/24/18 at 02:30 Dextrose (D50w Syringe) 50 ml Q15M PRN IV DECREASED GLUCOSE; Start 08/24/18 at 02:30 Glucagon (Glucagen) 1 mg Q15M PRN IM DECREASED GLUCOSE; Start 08/24/18 at 02:30 Glucose (Glutose) 15 gm Q15M PRN BUCCAL DECREASED GLUCOSE; Start 08/24/18 at 02:30 Pantoprazole (Protonix Tab) 40 mg DAILY@06 PO Last administered on 08/31/18 06:02; Admin Dose 40 MG; Start 08/24/18 at 06:00 Acetaminophen (Tylenol Tab) 650 mg Q6H PRN PO MILD PAIN(1-3)OR ELEVATED TEMP Last administered on 08/27/18 21:07; Admin Dose 650 MG; Start 08/24/18 at 03:00 Ondansetron HCl (Zofran Inj) 4 mg Q6H PRN IV NAUSEA AND/OR VOMITING Last administered on 08/25/18 09:10; Admin Dose 4 MG; Start 08/24/18 at 03:00 Miscellaneous Information (* Miscellaneous Pharmacy Order) Zosyn per pharmacy ONCE XX ; Start 08/24/18 at 03:00 Acetaminophen/ Hydrocodone Bitart ([place] (5/325)) 1 tab Q6H PRN PO MODERATE PAIN LEVEL 4-6 Last administered on 08/27/18 06:18; Admin Dose 1 TAB; Start 08/24/18 at 03:00 Miscellaneous Information (Pending Santyl Order For Wound Care) This patient mora... PRN PRN XX WOUND CARE; Start 08/24/18 at 03:00 Collagenase (Santyl) 1 applic DAILY TOP Last administered on 08/27/18 08:26; Admin Dose 1 APPLIC; Start 08/24/18 at 09:00 Collagenase (Santyl) 1 applic DAILY PRN TOP PRN; Start 08/24/18 at 09:00 Insulin Aspart (Novolog Insulin Pen) NOVOLOG *MILD* ALGORITHM WITH MEALS BEDTIME SC Last administered on 08/28/18 17:13; Admin Dose 1 UNIT; Start 08/24/18 at 08:00 Sodium Hypochlorite (Dakins Diluted ()) 1 applic BID TP Last administered on 08/27/18 21:14; Admin Dose 1 APPLIC; Start 08/24/18 at 21:00 Diagnostic Test (Pha) (Accu-Chek) 1 ea 02 XX ; Start 08/26/18 at 02:00 Docusate Sodium (Colace) 100 mg BID PRN PO CONSTIPATION Last administered on 08/29/18 12:38; Admin Dose 100 MG; Start 08/28/18 at 09:00 Sodium Chloride 1,000 ml @ 25 mls/hr Q24H IV Last administered on 08/31/18 08:15; Admin Dose 25 MLS/HR; Start 08/28/18 at 09:00 Insulin Glargine (Lantus) 24 units DAILY@2000 SC Last administered on 08/30/18 21:06; Admin Dose 24 UNITS; Start 08/28/18 at 20:00 Fluconazole (Diflucan) 100 mg DAILY PO Last administered on 08/31/18 08:12; Admin Dose 100 MG; Start 08/28/18 at 14:30 Polyethylene Glycol (Miralax) 17 gm DAILY PRN PO CONSTIPATION; Start 08/29/18 at 14:30 Amlodipine Besylate (Norvasc) 10 mg DAILY PO Last administered on 08/31/18 08:13; Admin Dose 10 MG; Start 08/31/18 at 09:00 Calcium Carbonate (Tums) 500 mg PC MEALS PO Last administered on 08/31/18 08:12; Admin Dose 500 MG; Start 08/30/18 at 13:00 Piperacillin Sod/ Tazobactam Sod 100 ml @ 200 mls/hr Q8 IVPB Last administered on 08/31/18 06:02; Admin Dose 200 MLS/HR; Start 08/30/18 at 22:00 ROXANNA SOMERS NP August 31, 2018 13:34
[2018-08-31] MEDS ORDERED: DIPHENHYDRAMINE 50 MG INJ IV ONE (14:00)
[2018-08-31] MEDS: ACETAMINOPHEN 325 MG TAB PO PRN (14:03)
--- NOTE | 2018-08-31 14:25 | PN ---
Date/Time of Note Date/Time of Note DATE: 08/31/18 TIME: 14:20 Assessment/Plan VTE Prophylaxis Risk score (from [facility] [place]0 risk: 8 SCD applied (from [facility] [place]): No SCD contraindicated: low risk/ambulating Pharmacological prophylaxis: NA/contraindicated Pharm contraindication: low risk/ambulating Lines/Catheters IV Catheter Type (from [facility] PICC Line Central line still needed: Yes Urinary Cath still in place: No Reason Cath still needed: urinary retention Assessment/Plan Hospital Course 1 septic shock secondary to right foot infection with possible soft tissue infection, necrotizing fasciitis (?). Now with gram-negative bacteremia + sp Rt BKA on 08/26/18 2. Diabetes mellitus type II, controled. 3. Acute kidney injury on chronic kidney disease. 4. Hyponatremia, resolved. 5. Hypotension,resolved 6. Right BKA 7. Anemia, likely anemia of chronic disease, no blood loss no history of GI bleeding 8 Leukocytosis 9 hypocalcemia 10 Hypokalemia Assessment/Plan - 1 unit PRBC - Anemia wup> might need epogen - Prosthesis - PT eval - repelete K - Dc fluids - pt will need SNIF placment sp BKA for iv abx, wound care - cw zosyn -cw lantus 24 and linagliptin -c/w bp meds - gi prophylaxis is Protonix -dvt PROPHYLAXIS , unable to tolerate, anemia. Result Diagram: 08/31/18 0426 08/31/18 0426 Results 24hrs Laboratory Tests Test 08/30/18 17:22 08/30/18 21:02 08/31/18 04:26 08/31/18 07:44 Bedside Glucose 138 140 97 White Blood Count 11.4 H Red Blood Count 2.30 L Hemoglobin 6.8 *L Hematocrit 20.4 L Mean Corpuscular Volume 88.7 Mean Corpuscular 29.6 Hemoglobin Mean Corpuscular 33.3 Hemoglobin Concent Red Cell Distribution 13.4 Width Platelet Count 279 Mean Platelet Volume 9.3 Immature Granulocytes % 2.200 H Neutrophils % 80.0 H Lymphocytes % 13.0 L Monocytes % 3.8 Eosinophils % 0.9 Basophils % 0.1 Nucleated Red Blood 0.0 Cells % Immature Granulocytes # 0.250 H Neutrophils # 9.2 H Lymphocytes # 1.5 Monocytes # 0.4 Eosinophils # 0.1 Basophils # 0.0 Nucleated Red Blood 0.0 Cells # Sodium Level 142 Potassium Level 2.8 *L Chloride Level 111 H Carbon Dioxide Level 24 Anion Gap 7 Blood Urea Nitrogen 27 H Creatinine 1.70 H Est Glomerular Filtrat 42 L Rate mL/min Glucose Level 58 #L Calcium Level 7.8 L Test 08/31/18 12:23 Bedside Glucose 81 Subjective 24 Hr Interval Summary Free Text/Dictation diarrhoea hb 6.8 today Exam/Review of Systems Exam Vitals Vital Signs Date Temp Pulse Resp B/P (MAP) Pulse Ox O2 O2 Flow FiO2 Time Delivery Rate 08/31/18 98.4 98 18 168/99 99 Room Air 07:50 (122) Intake and Output 08/30/18 08/30/18 08/31/18 1515:00 23:00 07:00 IntakeIntake Total 600 ml 640 ml OutputOutput Total 1500 ml 900 ml BalanceBalance -900 ml -260 ml Exam Constitutional: alert, oriented Cardiovascular: regular rate and rhythm Gastrointestinal: soft Musculoskeletal: muscle weakness, swelling (rBKA with clear sutures s/pamputation of 3,4 5 toes on left Results Results 24hrs Laboratory Tests Test 08/30/18 17:22 08/30/18 21:02 08/31/18 04:26 08/31/18 07:44 Bedside Glucose 138 140 97 White Blood Count 11.4 H Red Blood Count 2.30 L Hemoglobin 6.8 *L Hematocrit 20.4 L Mean Corpuscular Volume 88.7 Mean Corpuscular 29.6 Hemoglobin Mean Corpuscular 33.3 Hemoglobin Concent Red Cell Distribution 13.4 Width Platelet Count 279 Mean Platelet Volume 9.3 Immature Granulocytes % 2.200 H Neutrophils % 80.0 H Lymphocytes % 13.0 L Monocytes % 3.8 Eosinophils % 0.9 Basophils % 0.1 Nucleated Red Blood 0.0 Cells % Immature Granulocytes # 0.250 H Neutrophils # 9.2 H Lymphocytes # 1.5 Monocytes # 0.4 Eosinophils # 0.1 Basophils # 0.0 Nucleated Red Blood 0.0 Cells # Sodium Level 142 Potassium Level 2.8 *L Chloride Level 111 H Carbon Dioxide Level 24 Anion Gap 7 Blood Urea Nitrogen 27 H Creatinine 1.70 H Est Glomerular Filtrat 42 L Rate mL/min Glucose Level 58 #L Calcium Level 7.8 L Test 08/31/18 12:23 Bedside Glucose 81 Medications Medication Current Medications Ferrous Sulfate (Ferrous Sulfate (Ec)) 325 mg DAILY PO Last administered on 08/31/18at 08:12; Admin Dose 325 MG; Start 08/24/18 at 09:00 Linagliptin (Tradjenta) 5 mg DAILY PO Last administered on 08/31/18 08:12; Admin Dose 5 MG; Start 08/24/18 at 09:00 Pentoxifylline (Trental) 400 mg TID PO Last administered on 08/31/18at 13:50; Admin Dose 400 MG; Start 08/24/18 at 09:00 Miscellaneous Information 1 ea NOTE XX ; Start 08/24/18 at 02:30 Glucose (Glutose) 15 gm Q15M PRN PO DECREASED GLUCOSE; Start 08/24/18 at 02:30 Glucose (Glutose) 22.5 gm Q15M PRN PO DECREASED GLUCOSE; Start 08/24/18 at 02:30 Dextrose (D50w Syringe) 25 ml Q15M PRN IV DECREASED GLUCOSE; Start 08/24/18 at 02:30 Dextrose (D50w Syringe) 50 ml Q15M PRN IV DECREASED GLUCOSE; Start 08/24/18 at 02:30 Glucagon (Glucagen) 1 mg Q15M PRN IM DECREASED GLUCOSE; Start 08/24/18 at 02:30 Glucose (Glutose) 15 gm Q15M PRN BUCCAL DECREASED GLUCOSE; Start 08/24/18 at 02:30 Pantoprazole (Protonix Tab) 40 mg DAILY@06 PO Last administered on 08/31/18at 06:02; Admin Dose 40 MG; Start 08/24/18 at 06:00 Acetaminophen (Tylenol Tab) 650 mg Q6H PRN PO MILD PAIN(1-3)OR ELEVATED TEMP Last administered on 08/31/18at 14:03; Admin Dose 650 MG; Start 08/24/18 at 03:00 Ondansetron HCl (Zofran Inj) 4 mg Q6H PRN IV NAUSEA AND/OR VOMITING Last administered on 08/25/18at 09:10; Admin Dose 4 MG; Start 08/24/18 at 03:00 Miscellaneous Information (* Miscellaneous Pharmacy Order) Zosyn per pharmacy ONCE XX ; Start 08/24/18 at 03:00 Acetaminophen/ Hydrocodone Bitart ([place] (5/325)) 1 tab Q6H PRN PO MODERATE PAIN LEVEL 4-6 Last administered on 08/27/18 06:18; Admin Dose 1 TAB; Start 08/24/18 at 03:00 Miscellaneous Information (Pending Santyl Order For Wound Care) This patient mora... PRN PRN XX WOUND CARE; Start 08/24/18 at 03:00 Collagenase (Santyl) 1 applic DAILY TOP Last administered on 08/27/18 08:26; Admin Dose 1 APPLIC; Start 08/24/18 at 09:00 Collagenase (Santyl) 1 applic DAILY PRN TOP PRN; Start 08/24/18 at 09:00 Insulin Aspart (Novolog Insulin Pen) NOVOLOG *MILD* ALGORITHM WITH MEALS BEDTIME SC Last administered on 08/28/18 17:13; Admin Dose 1 UNIT; Start 08/24/18 at 08:00 Sodium Hypochlorite (Dakins Diluted (40)) 1 applic BID TP Last administered on 08/27/18 21:14; Admin Dose 1 APPLIC; Start 08/24/18 at 21:00 Diagnostic Test (Pha) (Accu-Chek) 1 ea 02 XX ; Start 08/26/18 at 02:00 Docusate Sodium (Colace) 100 mg BID PRN PO CONSTIPATION Last administered on 08/29/18 12:38; Admin Dose 100 MG; Start 08/28/18 at 09:00 Sodium Chloride 1,000 ml @ 25 mls/hr Q24H IV Last administered on 08/31/18 08:15; Admin Dose 25 MLS/HR; Start 08/28/18 at 09:00 Insulin Glargine (Lantus) 24 units DAILY@2000 SC Last administered on 08/30/18 21:06; Admin Dose 24 UNITS; Start 08/28/18 at 20:00 Fluconazole (Diflucan) 100 mg DAILY PO Last administered on 08/31/18 08:12; Admin Dose 100 MG; Start 08/28/18 at 14:30 Polyethylene Glycol (Miralax) 17 gm DAILY PRN PO CONSTIPATION; Start 08/29/18 at 14:30 Amlodipine Besylate (Norvasc) 10 mg DAILY PO Last administered on 08/31/18 08:13; Admin Dose 10 MG; Start 5/6/19 at 09:00 Calcium Carbonate (Tums) 500 mg PC MEALS PO Last administered on 08/31/18 13:50; Admin Dose 500 MG; Start 08/30/18 at 13:00 Piperacillin Sod/ Tazobactam Sod 100 ml @ 200 mls/hr Q8 IVPB Last administered on 08/31/18 13:50; Admin Dose 200 MLS/HR; Start 08/30/18 at 22:00 GINA SUTTON MD August 31, 2018 14:25
[2018-08-31] MEDS: INSULIN GLARGINE [LANTus] (100 UNITS/ML) SYG SC SCH (20:44)
[2018-09-01] MEDS: ACCU-CHEK XX SCH (02:00)
[2018-09-01 03:57] VITALS: BP 155/92; PULSE 90; RESP 20
[2018-09-01] MEDS: PIPER-TAZO 3.375 GM IV (PMX) 100 ML IVPB SCH ×3 (05:52→21:01)
[2018-09-01] MEDS: PANTOPRAZOLE (EC) 40 MG TAB PO SCH (05:52)
[2018-09-01 07:46] VITALS: BP 153/92; PULSE 94; RESP 16
[2018-09-01] MEDS: INSULIN ASPART [NOVOLOG] 3 ML PEN SC SCH ×4 (08:00→20:26)
[2018-09-01] MEDS: LINAGLIPTIN 5 MG TABLET PO SCH (09:23)
[2018-09-01] MEDS: CALCIUM CARBONATE 500 MG CHEW TAB PO SCH ×3 (09:23→17:57)
[2018-09-01] MEDS: AMLODIPINE 10 MG TAB PO SCH (09:23)
[2018-09-01] MEDS: PENTOXIFYLLINE (SR) 400 MG TAB PO SCH ×3 (09:23→20:26)
[2018-09-01] MEDS: FERROUS SULFATE (EC) 325 MG TAB PO SCH (09:24)
[2018-09-01] MEDS: COLLAGENASE 5 GM (UD JAR) TOP SCH (09:24)
[2018-09-01] MEDS: FLUCONAZOLE 100 MG TAB PO SCH (09:24)
[2018-09-01] MEDS: DAKINS 0.0125%(1/40) 473 ML SOLUTION TP SCH ×2 (09:24→21:01)
--- NOTE | 2018-09-01 12:10 | CONS ---
Assessment/Plan Assessment/Plan Hospital Course (Demo Recall) No acute events, looks comfortable, no fevers Microbiology: Blood culture on admission grew VRE susceptible to ampicillin and gram-negative rods, repeat blood cultures neg Indwelling's: Right upper extremity PICC line Antimicrobials: Zosyn Physical examination: This is a well-developed well-nourished middle-aged male who is in no distress. Head atraumatic normocephalic sclera nonicteric. Neck is supple. Chest rise symmetrical, breath sounds clear. Hea rt: S1-S2. Abdomen soft bowel sounds present. Extremities with bilateral lower extremity dressings present with purulent drainage and foul order also patient has gangrene all stools Assessment: 1. Severe sepsis, present on admission 2. Bilateral lower extremity's gangrene/osteomyelitis 3. Peripheral arterial disease 4. Diabetes 5. Acute kidney injury 6. Anemia Plan: Remains stable, repeat MRI L foot revealed no OM. Will need to complete 2 weeks abx for VRE/Bacteroides bacteremia either with Zosyn or PO Zyvox and PO Flagyl===> last dose 09/07/18. Continue monitoring RLE stump and f/u podiatry rec-s Consultation Date/Type/Reason Admit Date/Time Aug 23, 2018 at 21:27 Initial Consult Date 08/25/18 Type of Consult id Date/Time of Note DATE: 09/01/18 TIME: 12:09 Exam/Review of Systems Exam Vitals Vital Signs Date Temp Pulse Resp B/P (MAP) Pulse Ox O2 O2 Flow FiO2 Time Delivery Rate 09/01/18 99.4 94 16 153/92 96 07:46 (112) 08/31/18 Room Air 18:40 Intake and Output 08/31/18 08/31/18 09/01/18 1515:00 23:00 07:00 IntakeIntake Total 525 ml 420 ml OutputOutput Total 1200 ml 300 ml 800 ml BalanceBalance -675 ml 120 ml -800 ml Results Result Diagram: 09/01/18 0846 09/01/18 0846 Results 24hrs Laboratory Tests Test 08/31/18 12:23 08/31/18 17:00 08/31/18 18:20 08/31/18 20:42 Bedside Glucose 81 110 114 Stool Occult Blood NEGATIVE Test 09/01/18 08:45 09/01/18 08:46 Bedside Glucose 87 White Blood Count 12.1 H Red Blood Count 2.65 L Hemoglobin 7.7 L Hematocrit 23.5 L Mean Corpuscular Volume 88.7 Mean Corpuscular 29.1 Hemoglobin Mean Corpuscular 32.8 Hemoglobin Concent Red Cell Distribution 13.6 Width Platelet Count 273 Mean Platelet Volume 9.1 Immature Granulocytes % 1.700 H Neutrophils % 81.4 H Lymphocytes % 11.5 L Monocytes % 4.0 Eosinophils % 1.2 Basophils % 0.2 Nucleated Red Blood 0.0 Cells % Immature Granulocytes # 0.210 H Neutrophils # 9.8 H Lymphocytes # 1.4 Monocytes # 0.5 Eosinophils # 0.1 Basophils # 0.0 Nucleated Red Blood 0.0 Cells # Sodium Level 141 Potassium Level 3.4 L Chloride Level 111 H Carbon Dioxide Level 26 Anion Gap 4 L Blood Urea Nitrogen 22 H Creatinine 1.63 H Est Glomerular Filtrat 44 L Rate mL/min Glucose Level 78 Calcium Level 7.7 L Phosphorus Level 2.8 Magnesium Level 1.9 Medications Medication Current Medications Ferrous Sulfate (Ferrous Sulfate (Ec)) 325 mg DAILY PO Last administered on 09/01/18at 09:24; Admin Dose 325 MG; Start 08/24/18 at 09:00 Linagliptin (Tradjenta) 5 mg DAILY PO Last administered on 09/01/18at 09:23; Admin Dose 5 MG; Start 08/24/18 at 09:00 Pentoxifylline (Trental) 400 mg TID PO Last administered on 09/01/18at 09:23; Admin Dose 400 MG; Start 08/24/18 at 09:00 Miscellaneous Information 1 ea NOTE XX ; Start 08/24/18 at 02:30 Glucose (Glutose) 15 gm Q15M PRN PO DECREASED GLUCOSE; Start 08/24/18 at 02:30 Glucose (Glutose) 22.5 gm Q15M PRN PO DECREASED GLUCOSE; Start 08/24/18 at 02:30 Dextrose (D50w Syringe) 25 ml Q15M PRN IV DECREASED GLUCOSE; Start 08/24/18 at 02:30 Dextrose (D50w Syringe) 50 ml Q15M PRN IV DECREASED GLUCOSE; Start 08/24/18 at 02:30 Glucagon (Glucagen) 1 mg Q15M PRN IM DECREASED GLUCOSE; Start 08/24/18 at 02:30 Glucose (Glutose) 15 gm Q15M PRN BUCCAL DECREASED GLUCOSE; Start 08/24/18 at 02:30 Pantoprazole (Protonix Tab) 40 mg DAILY@06 PO Last administered on 09/01/18 05:52; Admin Dose 40 MG; Start 08/24/18 at 06:00 Acetaminophen (Tylenol Tab) 650 mg Q6H PRN PO MILD PAIN(1-3)OR ELEVATED TEMP Last administered on 08/31/18 14:03; Admin Dose 650 MG; Start 08/24/18 at 03:00 Ondansetron HCl (Zofran Inj) 4 mg Q6H PRN IV NAUSEA AND/OR VOMITING Last administered on 08/25/18 09:10; Admin Dose 4 MG; Start 08/24/18 at 03:00 Miscellaneous Information (* Miscellaneous Pharmacy Order) Zosyn per pharmacy ONCE XX ; Start 08/24/18 at 03:00 Acetaminophen/ Hydrocodone Bitart ([place] (5/325)) 1 tab Q6H PRN PO MODERATE PAIN LEVEL 4-6 Last administered on 08/27/18 06:18; Admin Dose 1 TAB; Start 08/24/18 at 03:00 Miscellaneous Information (Pending Santyl Order For Wound Care) This patient h a... PRN PRN XX WOUND CARE; Start 08/24/18 at 03:00 Collagenase (Santyl) 1 applic DAILY TOP Last administered on 09/01/18 09:24; Admin Dose 1 APPLIC; Start 08/24/18 at 09:00 Collagenase (Santyl) 1 applic DAILY PRN TOP PRN; Start 08/24/18 at 09:00 Insulin Aspart (Novolog Insulin Pen) NOVOLOG *MILD* ALGORITHM WITH MEALS BEDTIME SC Last administered on 08/28/18 17:13; Admin Dose 1 UNIT; Start at 08:00 Sodium Hypochlorite (Dakins Diluted ()) 1 applic BID TP Last administered on 09/01/18 09:24; Admin Dose 1 APPLIC; Start 08/24/18 at 21:00 Diagnostic Test (Pha) (Accu-Chek) 1 ea 02 XX ; Start 08/26/18 at 02:00 Docusate Sodium (Colace) 100 mg BID PRN PO CONSTIPATION Last administered on 08/29/18 12:38; Admin Dose 100 MG; Start 08/28/18 at 09:00 Insulin Glargine (Lantus) 24 units DAILY@2000 SC Last administered on 08/31/18 20:44; Admin Dose 24 UNITS; Start 08/28/18 at 20:00 Fluconazole (Diflucan) 100 mg DAILY PO Last administered on 09/01/18 09:24; Admin Dose 100 MG; Start 08/28/18 at 14:30 Polyethylene Glycol (Miralax) 17 gm DAILY PRN PO CONSTIPATION; Start 08/29/18 at 14:30 Amlodipine Besylate (Norvasc) 10 mg DAILY PO Last administered on 09/01/18 09:23; Admin Dose 10 MG; Start 08/31/18 at 09:00 Calcium Carbonate (Tums) 500 mg PC MEALS PO Last administered on 09/01/18 09:23; Admin Dose 500 MG; Start 08/30/18 at 13:00 Piperacillin Sod/ Tazobactam Sod 100 ml @ 200 mls/hr Q8 IVPB Last administered on 09/01/18 05:52; Admin Dose 200 MLS/HR; Start 08/30/18 at 22:00 ROXANNA SOMERS NP September 01, 2018 12:10
[2018-09-01] MEDS ORDERED: POTASSIUM CHLORIDE (SR) 20 MEQ TAB PO STA (13:30)
--- NOTE | 2018-09-01 13:32 | PN ---
Date/Time of Note Date/Time of Note DATE: 09/01/18 TIME: 13:32 Assessment/Plan VTE Prophylaxis Risk [place] (from [facility] [place] risk: 7 SCD applied (from [facility] [place] No SCD contraindicated: low risk/ambulating Pharmacological prophylaxis: NA/contraindicated Pharm contraindication: low risk/ambulating Lines/Catheters [facility] Type (from [facility] PICC Line Central line still needed: Yes Urinary Cath still in place: No Assessment/Plan Hospital Course 1 septic shock secondary to right foot infection with possible soft tissue infection, necrotizing fasciitis (?). Now with gram-negative bacteremia + sp Rt BKA on 08/26/18 2. Diabetes mellitus type II, controled. 3. Acute kidney injury on chronic kidney disease. 4. Hyponatremia, resolved. 5. Hypotension,resolved 6. Right BKA 7. Anemia, likely anemia of chronic disease, no blood loss no history of GI bleeding 8 Leukocytosis 9 hypocalcemia 10 Hypokalemia Assessment/Plan - epogen - Prosthesis? - PT eval - pt will need SNIF placment sp BKA for iv abx, wound care , spoke to CM working on it - cw zosyn -cw lantus 24 and linagliptin -c/w bp meds - gi prophylaxis is Protonix -dvt PROPHYLAXIS , unable to tolerate, anemia. Result Diagram: 09/01/18 0846 09/01/18 0846 Results 24hrs Laboratory Tests Test 08/31/18 17:00 08/31/18 18:20 08/31/18 20:42 09/01/18 08:45 Bedside Glucose 110 114 87 Stool Occult Blood NEGATIVE Test 09/01/18 08:46 09/01/18 12:32 White Blood Count 12.1 H Red Blood Count 2.65 L Hemoglobin 7.7 L Hematocrit 23.5 L Mean Corpuscular Volume 88.7 Mean Corpuscular 29.1 Hemoglobin Mean Corpuscular 32.8 Hemoglobin Concent Red Cell Distribution 13.6 Width Platelet Count 273 Mean Platelet Volume 9.1 Immature Granulocytes % 1.700 H Neutrophils % 81.4 H Lymphocytes % 11.5 L Monocytes % 4.0 Eosinophils % 1.2 Basophils % 0.2 Nucleated Red Blood 0.0 Cells % Immature Granulocytes # 0.210 H Neutrophils # 9.8 H Lymphocytes # 1.4 Monocytes # 0.5 Eosinophils # 0.1 Basophils # 0.0 Nucleated Red Blood 0.0 Cells # Sodium Level 141 Potassium Level 3.4 L Chloride Level 111 H Carbon Dioxide Level 26 Anion Gap 4 L Blood Urea Nitrogen 22 H Creatinine 1.63 H Est Glomerular Filtrat 44 L Rate mL/min Glucose Level 78 Calcium Level 7.7 L Phosphorus Level 2.8 Magnesium Level 1.9 Bedside Glucose 118 Subjective 24 Hr Interval Summary Free Text/Dictation denies any pain Exam/Review of Systems Exam Vitals Vital Signs Date Temp Pulse Resp B/P (MAP) Pulse Ox O2 O2 Flow FiO2 Time Delivery Rate 09/01/18 99.4 94 16 153/92 96 07:46 (112) 08/31/18 Room Air 18:40 Intake and Output 08/31/18 08/31/18 09/01/18 1515:00 23:00 07:00 IntakeIntake Total 525 ml 420 ml OutputOutput Total 1200 ml 300 ml 800 ml BalanceBalance -675 ml 120 ml -800 ml Exam Constitutional: alert, oriented Cardiovascular: regular rate and rhythm Gastrointestinal: soft Musculoskeletal: muscle weakness, swelling (rBKA with clear sutures s/pamputation of 3,4 5 toes on left Results Results 24hrs Laboratory Tests Test 08/31/18 17:00 08/31/18 18:20 08/31/18 20:42 09/01/18 08:45 Bedside Glucose 110 114 87 Stool Occult Blood NEGATIVE Test 09/01/18 08:46 09/01/18 12:32 White Blood Count 12.1 H Red Blood Count 2.65 L Hemoglobin 7.7 L Hematocrit 23.5 L Mean Corpuscular Volume 88.7 Mean Corpuscular 29.1 Hemoglobin Mean Corpuscular 32.8 Hemoglobin Concent Red Cell Distribution 13.6 Width Platelet Count 273 Mean Platelet Volume 9.1 Immature Granulocytes % 1.700 H Neutrophils % 81.4 H Lymphocytes % 11.5 L Monocytes % 4.0 Eosinophils % 1.2 Basophils % 0.2 Nucleated Red Blood 0.0 Cells % Immature Granulocytes # 0.210 H Neutrophils # 9.8 H Lymphocytes # 1.4 Monocytes # 0.5 Eosinophils # 0.1 Basophils # 0.0 Nucleated Red Blood 0.0 Cells # Sodium Level 141 Potassium Level 3.4 L Chloride Level 111 H Carbon Dioxide Level 26 Anion Gap 4 L Blood Urea Nitrogen 22 H Creatinine 1.63 H Est Glomerular Filtrat 44 L Rate mL/min Glucose Level 78 Calcium Level 7.7 L Phosphorus Level 2.8 Magnesium Level 1.9 Bedside Glucose 118 Medications Medication Current Medications Ferrous Sulfate (Ferrous Sulfate (Ec)) 325 mg DAILY PO Last administered on 09/01/18 09:24; Admin Dose 325 MG; Start 08/24/18 at 09:00 Linagliptin (Tradjenta) 5 mg DAILY PO Last administered on 09/01/18 09:23; Admin Dose 5 MG; Start 08/24/18 at 09:00 Pentoxifylline (Trental) 400 mg TID PO Last administered on 09/01/18 12:34; Admin Dose 400 MG; Start 08/24/18 at 09:00 Miscellaneous Information 1 ea NOTE XX ; Start 08/24/18 at 02:30 Glucose (Glutose) 15 gm Q15M PRN PO DECREASED GLUCOSE; Start 08/24/18 at 02:30 Glucose (Glutose) 22.5 gm Q15M PRN PO DECREASED GLUCOSE; Start 08/24/18 at 02:30 Dextrose (D50w Syringe) 25 ml Q15M PRN IV DECREASED GLUCOSE; Start 08/24/18 at 02:30 Dextrose (D50w Syringe) 50 ml Q15M PRN IV DECREASED GLUCOSE; Start 08/24/18 at 02:30 Glucagon (Glucagen) 1 mg Q15M PRN IM DECREASED GLUCOSE; Start 08/24/18 at 02:30 Glucose (Glutose) 15 gm Q15M PRN BUCCAL DECREASED GLUCOSE; Start 08/24/18 at 02:30 Pantoprazole (Protonix Tab) 40 mg DAILY@06 PO Last administered on 09/01/18at 05:52; Admin Dose 40 MG; Start 08/24/18 at 06:00 Acetaminophen (Tylenol Tab) 650 mg Q6H PRN PO MILD PAIN(1-3)OR ELEVATED TEMP Last administered on 08/31/18 14:03; Admin Dose 650 MG; Start 08/24/18 at 03:00 Ondansetron HCl (Zofran Inj) 4 mg Q6H PRN IV NAUSEA AND/OR VOMITING Last administered on 08/25/18at 09:10; Admin Dose 4 MG; Start 08/24/18 at 03:00 Miscellaneous Information (* Miscellaneous Pharmacy Order) Zosyn per pharmacy ONCE XX ; Start 08/24/18 at 03:00 Acetaminophen/ Hydrocodone Bitart ([place] (5/325)) 1 tab Q6H PRN PO MODERATE PAIN LEVEL 4-6 Last administered on 08/27/18 06:18; Admin Dose 1 TAB; Start 08/24/18 at 03:00 Miscellaneous Information (Pending Santyl Order For Wound Care) This patient mora... PRN PRN XX WOUND CARE; Start 08/24/18 at 03:00 Collagenase (Santyl) 1 applic DAILY TOP Last administered on 09/01/18 09:24; Admin Dose 1 APPLIC; Start 08/24/18 at 09:00 Collagenase (Santyl) 1 applic DAILY PRN TOP PRN; Start 08/24/18 at 09:00 Insulin Aspart (Novolog Insulin Pen) NOVOLOG *MILD* ALGORITHM WITH MEALS BE DTIME SC Last administered on 08/28/18 17:13; Admin Dose 1 UNIT; Start 08/24/18 at 08:00 Sodium Hypochlorite (Dakins Diluted (40)) 1 applic BID TP Last administered on 09/01/18 09:24; Admin Dose 1 APPLIC; Start 08/24/18 at 21:00 Diagnostic Test (Pha) (Accu-Chek) 1 ea 02 XX ; Start 08/26/18 at 02:00 Docusate Sodium (Colace) 100 mg BID PRN PO CONSTIPATION Last administered on 08/29/18 12:38; Admin Dose 100 MG; Start 08/28/18 at 09:00 Insulin Glargine (Lantus) 24 units DAILY@2000 SC Last administered on 08/31/18 20:44; Admin Dose 24 UNITS; Start 08/28/18 at 20:00 Fluconazole (Diflucan) 100 mg DAILY PO Last administered on 09/01/18 09:24; Admin Dose 100 MG; Start 08/28/18 at 14:30 Polyethylene Glycol (Miralax) 17 gm DAILY PRN PO CONSTIPATION; Start 08/29/18 at 14:30 Amlodipine Besylate (Norvasc) 10 mg DAILY PO Last administered on 09/01/18 09:23; Admin Dose 10 MG; Start 08/31/18 at 09:00 Calcium Carbonate (Tums) 500 mg PC MEALS PO Last administered on 09/01/18at 12:34; Admin Dose 500 MG; Start 08/30/18 at 13:00 Piperacillin Sod/ Tazobactam Sod 100 ml @ 200 mls/hr Q8 IVPB Last administered on 09/01/18at 05:52; Admin Dose 200 MLS/HR; Start 08/30/18 at 22:00 GINA SUTTON MD September 01, 2018 13:32
[2018-09-01] MEDS: METOPROLOL (XL) 25 MG TAB PO SCH (13:53)
[2018-09-01] MEDS ORDERED: EPOETIN ALFA-EPBX (NON-ESRD) 3,000 UNIT/ML VIAL SC ONE (14:00)
[2018-09-01 14:12] VITALS: BP 147/97; PULSE 97; RESP 16
[2018-09-01 20:00] VITALS: BP 144/87; PULSE 99; RESP 18
[2018-09-01] MEDS: INSULIN GLARGINE [LANTus] (100 UNITS/ML) SYG SC SCH (20:25)
[2018-09-02 02:00] VITALS: BP 149/93; PULSE 86; RESP 17
[2018-09-02] MEDS: ACCU-CHEK XX SCH (02:00)
[2018-09-02] MEDS: PIPER-TAZO 3.375 GM IV (PMX) 100 ML IVPB SCH ×3 (06:07→21:30)
[2018-09-02] MEDS: PANTOPRAZOLE (EC) 40 MG TAB PO SCH (06:07)
[2018-09-02 07:48] VITALS: BP 149/95; PULSE 86; RESP 16
[2018-09-02] MEDS: INSULIN ASPART [NOVOLOG] 3 ML PEN SC SCH ×4 (08:00→21:30)
[2018-09-02] MEDS: COLLAGENASE 5 GM (UD JAR) TOP SCH (08:17)
[2018-09-02] MEDS: AMLODIPINE 10 MG TAB PO SCH (08:17)
[2018-09-02] MEDS: CALCIUM CARBONATE 500 MG CHEW TAB PO SCH ×3 (08:17→20:00)
[2018-09-02] MEDS: LINAGLIPTIN 5 MG TABLET PO SCH (08:17)
[2018-09-02] MEDS: PENTOXIFYLLINE (SR) 400 MG TAB PO SCH ×3 (08:17→21:30)
[2018-09-02] MEDS: FLUCONAZOLE 100 MG TAB PO SCH (08:18)
[2018-09-02] MEDS: FERROUS SULFATE (EC) 325 MG TAB PO SCH (08:18)
[2018-09-02] MEDS: METOPROLOL (XL) 25 MG TAB PO SCH (08:18)
[2018-09-02] MEDS: DAKINS 0.0125%(1/40) 473 ML SOLUTION TP SCH ×2 (08:19→21:00)
--- NOTE | 2018-09-02 14:20 | CONS ---
Assessment/Plan Assessment/Plan Hospital Course (Demo Recall) No acute events, alert, feels good, no fevers Microbiology: Blood culture on admission grew VRE susceptible to ampicillin and gram-negative rods, repeat blood cultures neg Indwelling's: Right upper extremity PICC line Antimicrobials: Zosyn Physical examination: This is a well-developed well-nourished middle-aged male who is in no distress. Head atraumatic normocephalic sclera nonicteric. Neck is supple. Chest rise symmetrical, breath sounds clear. He art: S1-S2. Abdomen soft bowel sounds present. Extremities with bilateral lower extremity dressings present with purulent drainage and foul order also patient has gangrene all stools Assessment: 1. Severe sepsis, present on admission 2. Bilateral lower extremity's gangrene/osteomyelitis 3. Peripheral arterial disease 4. Diabetes 5. Acute kidney injury 6. Anemia Plan: Remains stable, repeat MRI L foot revealed no OM. Will need to complete 2 weeks abx for VRE/Bacteroides bacteremia either with Zosyn or PO Zyvox and PO Flagyl===> last dose 09/07/18. Continue monitoring RLE stump and f/u podiatry rec-s Consultation Date/Type/Reason Admit Date/Time Aug 23, 2018 at 21:27 Initial Consult Date 08/25/18 Type of Consult id Date/Time of Note DATE: 09/02/18 TIME: 14:20 Exam/Review of Systems Exam Vitals Vital Signs Date Temp Pulse Resp B/P (MAP) Pulse Ox O2 O2 Flow FiO2 Time Delivery Rate 09/02/18 98.6 86 16 149/95 95 07:48 (113) 08/31/18 Room Air 18:40 Intake and Output 09/01/18 09/01/18 09/02/18 1515:00 23:00 07:00 IntakeIntake Total 100 ml 900 ml OutputOutput Total 350 ml 700 ml BalanceBalance 100 ml 550 ml -700 ml Results Result Diagram: 09/02/18 0613 09/02/18 0613 Results 24hrs Laboratory Tests Test 09/01/18 17:44 09/01/18 20:24 09/02/18 06:13 09/02/18 08:14 Bedside Glucose 146 153 90 White Blood Count 12.6 H Red Blood Count 2.60 L Hemoglobin 7.7 L Hematocrit 22.9 L Mean Corpuscular Volume 88.1 Mean Corpuscular 29.6 Hemoglobin Mean Corpuscular 33.6 Hemoglobin Concent Red Cell Distribution 13.7 Width Platelet Count 273 Mean Platelet Volume 9.0 Immature Granulocytes % 1.400 H Neutrophils % 80.4 H Lymphocytes % 12.6 L Monocytes % 4.4 Eosinophils % 1.0 Basophils % 0.2 Nucleated Red Blood 0.0 Cells % Immature Granulocytes # 0.180 H Neutrophils # 10.2 H Lymphocytes # 1.6 Monocytes # 0.6 Eosinophils # 0.1 Basophils # 0.0 Nucleated Red Blood 0.0 Cells # Sodium Level 140 Potassium Level 3.6 Chloride Level 111 H Carbon Dioxide Level 25 Anion Gap 4 L Blood Urea Nitrogen 21 H Creatinine 1.69 H Est Glomerular Filtrat 43 L Rate mL/min Glucose Level 78 Calcium Level 7.7 L Test 09/02/18 12:11 Bedside Glucose 146 Medications Medication Current Medications Ferrous Sulfate (Ferrous Sulfate (Ec)) 325 mg DAILY PO Last administered on 09/02/18at 08:18; Admin Dose 325 MG; Start 08/24/18 at 09:00 Linagliptin (Tradjenta) 5 mg DAILY PO Last administered on 09/02/18at 08:17; Admin Dose 5 MG; Start 08/24/18 at 09:00 Pentoxifylline (Trental) 400 mg TID PO Last administered on 09/02/18at 12:17; Admin Dose 400 MG; Start 08/24/18 at 09:00 Miscellaneous Information 1 ea NOTE XX ; Start 08/24/18 at 02:30 Glucose (Glutose) 15 gm Q15M PRN PO DECREASED GLUCOSE; Start 08/24/18 at 02:30 Glucose (Glutose) 22.5 gm Q15M PRN PO DECREASED GLUCOSE; Start 08/24/18 at 02:30 Dextrose (D50w Syringe) 25 ml Q15M PRN IV DECREASED GLUCOSE; Start 08/24/18 at 02:30 Dextrose (D50w Syringe) 50 ml Q15M PRN IV DECREASED GLUCOSE; Start 08/24/18 at 02:30 Glucagon (Glucagen) 1 mg Q15M PRN IM DECREASED GLUCOSE; Start 08/24/18 at 02:30 Glucose (Glutose) 15 gm Q15M PRN BUCCAL DECREASED GLUCOSE; Start 08/24/18 at 02:30 Pantoprazole (Protonix Tab) 40 mg DAILY@06 PO Last administered on 09/02/18 06:07; Admin Dose 40 MG; Start 08/24/18 at 06:00 Acetaminophen (Tylenol Tab) 650 mg Q6H PRN PO MILD PAIN(1-3)OR ELEVATED TEMP Last administered on 08/31/18 14:03; Admin Dose 650 MG; Start 08/24/18 at 03:00 Ondansetron HCl (Zofran Inj) 4 mg Q6H PRN IV NAUSEA AND/OR VOMITING Last administered on 08/25/18 09:10; Admin Dose 4 MG; Start 08/24/18 at 03:00 Miscellaneous Information (* Miscellaneous Pharmacy Order) Zosyn per pharmacy ONCE XX ; Start 08/24/18 at 03:00 Acetaminophen/ Hydrocodone Bitart ([place] (5/325)) 1 tab Q6H PRN PO MODERATE PAIN LEVEL 4-6 Last administered on 08/27/18 06:18; Admin Dose 1 TAB; Start at 03:00 Miscellaneous Information (Pending Santyl Order For Wound Care) This patient mora... PRN PRN XX WOUND CARE; Start 08/24/18 at 03:00 Collagenase (Santyl) 1 applic DAILY TOP Last administered on 09/02/18 08:17; Admin Dose 1 APPLIC; Start 08/24/18 at 09:00 Collagenase (Santyl) 1 applic DAILY PRN TOP PRN; Start 08/24/18 at 09:00 Insulin Aspart (Novolog Insulin Pen) NOVOLOG *MILD* ALGORITHM WITH MEALS BEDTIME SC Last administered on 09/02/18 12:17; Admin Dose 1 UNIT; Start 08/24/18 at 08:00 Sodium Hypochlorite (Dakins Diluted (40)) 1 applic BID TP Last administered on 09/02/18 08:19; Admin Dose 1 APPLIC; Start 08/24/18 at 21:00 Diagnostic Test (Pha) (Accu-Chek) 1 ea 02 XX ; Start 08/26/18 at 02:00 Docusate Sodium (Colace) 100 mg BID PRN PO CONSTIPATION Last administered on 08/29/18 12:38; Admin Dose 100 MG; Start 08/28/18 at 09:00 Insulin Glargine (Lantus) 24 units DAILY@2000 SC Last administered on 09/01/18 20:25; Admin Dose 24 UNITS; Start 08/28/18 at 20:00 Fluconazole (Diflucan) 100 mg DAILY PO Last administered on 09/02/18 08:18; Admin Dose 100 MG; Start 08/28/18 at 14:30 Polyethylene Glycol (Miralax) 17 gm DAILY PRN PO CONSTIPATION; Start 08/29/18 at 14:30 Amlodipine Besylate (Norvasc) 10 mg DAILY PO Last administered on 09/02/18 08:17; Admin Dose 10 MG; Start 08/31/18 at 09:00 Calcium Carbonate (Tums) 500 mg PC MEALS PO Last administered on 09/02/18 08:17; Admin Dose 500 MG; Start 08/30/18 at 13:00 Piperacillin Sod/ Tazobactam Sod 100 ml @ 200 mls/hr Q8 IVPB Last administered on 09/02/18 13:56; Admin Dose 200 MLS/HR; Start 08/30/18 at 22:00 Metoprolol Succinate (Toprol Xl) 12.5 mg DAILY PO Last administered on 09/02/18 08:18; Admin Dose 12.5 MG; Start 09/01/18 at 14:00 ROXANNA SOMERS NP September 02, 2018 14:20
[2018-09-02 14:28] VITALS: BP 135/87; PULSE 90; RESP 16
--- NOTE | 2018-09-02 17:37 | PN ---
Date/Time of Note Date/Time of Note DATE: 09/02/18 TIME: 17:37 Assessment/Plan VTE Prophylaxis Risk score [place]from [facility] [place] risk: 6 SCD applied ([place] [facility] [place] No SCD contraindicated: low risk/ambulating Pharmacological prophylaxis: NA/contraindicated Pharm contraindication: low risk/ambulating Lines/Catheters IV Catheter Type (from [facility]): PICC Line Central line still needed: Yes Urinary Cath still in place: No Assessment/Plan Hospital Course 1 septic shock secondary to right foot infection with possible soft tissue infection, necrotizing fasciitis (?). Now with gram-negative bacteremia + sp Rt BKA on 08/26/18 2. Diabetes mellitus type II, controled. 3. Acute kidney injury on chronic kidney disease. 4. Hyponatremia, resolved. 5. Hypotension,resolved 6. Right BKA 7. Anemia, likely anemia of chronic disease, no blood loss no history of GI bleeding 8 Leukocytosis 9 hypocalcemia 10 Hypokalemia Assessment/Plan - epogen - Prosthesis? - PT eval - pt will need SNIF placment sp BKA for iv abx, wound care , spoke to CM working on it - cw zosyn -cw lantus 24 and linagliptin -c/w bp meds - gi prophylaxis is Protonix -dvt PROPHYLAXIS , unable to tolerate, anemia. Result Diagram: 09/02/1861209/02/18612 Results 24hrs Laboratory Tests Test 09/01/18 17:44 09/01/18 20:24 09/02/18 06:13 09/02/18 08:14 Bedside Glucose 146 153 90 White Blood Count 12.6 H Red Blood Count 2.60 L Hemoglobin 7.7 L Hematocrit 22.9 L Mean Corpuscular Volume 88.1 Mean Corpuscular 29.6 Hemoglobin Mean Corpuscular 33.6 Hemoglobin Concent Red Cell Distribution 13.7 Width Platelet Count 273 Mean Platelet Volume 9.0 Immature Granulocytes % 1.400 H Neutrophils % 80.4 H Lymphocytes % 12.6 L Monocytes % 4.4 Eosinophils % 1.0 Basophils % 0.2 Nucleated Red Blood 0.0 Cells % Immature Granulocytes # 0.180 H Neutrophils # 10.2 H Lymphocytes # 1.6 Monocytes # 0.6 Eosinophils # 0.1 Basophils # 0.0 Nucleated Red Blood 0.0 Cells # Sodium Level 140 Potassium Level 3.6 Chloride Level 111 H Carbon Dioxide Level 25 Anion Gap 4 L Blood Urea Nitrogen 21 H Creatinine 1.69 H Est Glomerular Filtrat 43 L Rate mL/min Glucose Level 78 Calcium Level 7.7 L Test 09/02/18 12:11 Bedside Glucose 146 Subjective 24 Hr Interval Summary Free Text/Dictation Pain is controlled Exam/Review of Systems Exam Vitals Vital Signs Date Temp Pulse Resp B/P (MAP) Pulse Ox O2 O2 Flow FiO2 Time Delivery Rate 09/02/18 98.6 90 16 135/87 97 14:28 (103) 08/31/18 Room Air 18:40 Intake and Output 09/01/18 09/01/18 09/02/18 1515:00 23:00 07:00 IntakeIntake Total 100 ml 900 ml 100 ml OutputOutput Total 350 ml 700 ml BalanceBalance 100 ml 550 ml -600 ml Exam Constitutional: alert, oriented Cardiovascular: regular rate and rhythm Gastrointestinal: soft Musculoskeletal: muscle weakness, swelling (rBKA with clear sutures s/p amputation of 3,4 5 toes on left Results Results 24hrs Laboratory Tests Test 09/01/18 17:44 09/01/18 20:24 09/02/18 06:13 09/02/18 08:14 Bedside Glucose 146 153 90 White Blood Count 12.6 H Red Blood Count 2.60 L Hemoglobin 7.7 L Hematocrit 22.9 L Mean Corpuscular Volume 88.1 Mean Corpuscular 29.6 Hemoglobin Mean Corpuscular 33.6 Hemoglobin Concent Red Cell Distribution 13.7 Width Platelet Count 273 Mean Platelet Volume 9.0 Immature Granulocytes % 1.400 H Neutrophils % 80.4 H Lymphocytes % 12.6 L Monocytes % 4.4 Eosinophils % 1.0 Basophils % 0.2 Nucleated Red Blood 0.0 Cells % Immature Granulocytes # 0.180 H Neutrophils # 10.2 H Lymphocytes # 1.6 Monocytes # 0.6 Eosinophils # 0.1 Basophils # 0.0 Nucleated Red Blood 0.0 Cells # Sodium Level 140 Potassium Level 3.6 Chloride Level 111 H Carbon Dioxide Level 25 Anion Gap 4 L Blood Urea Nitrogen 21 H Creatinine 1.69 H Est Glomerular Filtrat 43 L Rate mL/min Glucose Level 78 Calcium Level 7.7 L Test 09/02/18 12:11 Bedside Glucose 146 Medications Medication Current Medications Ferrous Sulfate (Ferrous Sulfate (Ec)) 325 mg DAILY PO Last administered on 09/02/18 08:18; Admin Dose 325 MG; Start 08/24/18 at 09:00 Linagliptin (Tradjenta) 5 mg DAILY PO Last administered on 09/02/18 08:17; Admin Dose 5 MG; Start 08/24/18 at 09:00 Pentoxifylline (Trental) 400 mg TID PO Last administered on 09/02/18 12:17; Admin Dose 400 MG; Start 08/24/18 at 09:00 Miscellaneous Information 1 ea NOTE XX ; Start 08/24/18 at 02:30 Glucose (Glutose) 15 gm Q15M PRN PO DECREASED GLUCOSE; Start 08/24/18 at 02:30 Glucose (Glutose) 22.5 gm Q15M PRN PO DECREASED GLUCOSE; Start 08/24/18 at 02:30 Dextrose (D50w Syringe) 25 ml Q15M PRN IV DECREASED GLUCOSE; Start 08/24/18 at 02:30 Dextrose (D50w Syringe) 50 ml Q15M PRN IV DECREASED GLUCOSE; Start 08/24/18 at 02:30 Glucagon (Glucagen) 1 mg Q15M PRN IM DECREASED GLUCOSE; Start 08/24/18 at 02:30 Glucose (Glutose) 15 gm Q15M PRN BUCCAL DECREASED GLUCOSE; Start 08/24/18 at 02:30 Pantoprazole (Protonix Tab) 40 mg DAILY@06 PO Last administered on 09/02/18 06:07; Admin Dose 40 MG; Start 08/24/18 at 06:00 Acetaminophen (Tylenol Tab) 650 mg Q6H PRN PO MILD PAIN(1-3)OR ELEVATED TEMP Last administered on 08/31/18 14:03; Admin Dose 650 MG; Start 08/24/18 at 03:00 Ondansetron HCl (Zofran Inj) 4 mg Q6H PRN IV NAUSEA AND/OR VOMITING Last administered on 08/25/18 09:10; Admin Dose 4 MG; Start 08/24/18 at 03:00 Miscellaneous Information (* Miscellaneous Pharmacy Order) Zosyn per pharmacy ONCE XX ; Start 08/24/18 at 03:00 Acetaminophen/ Hydrocodone Bitart ([place] (5/325)) 1 tab Q6H PRN PO MODERATE PAIN LEVEL 4-6 Last administered on 08/27/18 06:18; Admin Dose 1 TAB; Start 08/24/18 at 03:00 Miscellaneous Information (Pending Santyl Order For Wound Care) This patient mora... PRN PRN XX WOUND CARE; Start 08/24/18 at 03:00 Collagenase (Santyl) 1 applic DAILY TOP Last administered on 09/02/18 08:17; Admin Dose 1 APPLIC; Start 08/24/18 at 09:00 Collagenase (Santyl) 1 applic DAILY PRN TOP PRN; Start 08/24/18 at 09:00 Insulin Aspart (Novolog Insulin Pen) NOVOLOG *MILD* ALGORITHM WITH MEALS BE DTIME SC Last administered on 09/02/18 17:34; Admin Dose 1 UNIT; Start 08/24/18 at 08:00 Sodium Hypochlorite (Dakins Diluted (40)) 1 applic BID TP Last administered on 09/02/18 08:19; Admin Dose 1 APPLIC; Start 08/24/18 at 21:00 Diagnostic Test (Pha) (Accu-Chek) 1 ea 02 XX ; Start 08/26/18 at 02:00 Docusate Sodium (Colace) 100 mg BID PRN PO CONSTIPATION Last administered on 08/29/18 12:38; Admin Dose 100 MG; Start 08/28/18 at 09:00 Insulin Glargine (Lantus) 24 units DAILY@2000 SC Last administered on 09/01/18 20:25; Admin Dose 24 UNITS; Start 08/28/18 at 20:00 Fluconazole (Diflucan) 100 mg DAILY PO Last administered on 09/02/18 08:18; Admin Dose 100 MG; Start 08/28/18 at 14:30 Polyethylene Glycol (Miralax) 17 gm DAILY PRN PO CONSTIPATION; Start 08/29/18 at 14:30 Amlodipine Besylate (Norvasc) 10 mg DAILY PO Last administered on 09/02/18 08:17; Admin Dose 10 MG; Start 08/31/18 at 09:00 Calcium Carbonate (Tums) 500 mg PC MEALS PO Last administered on 09/02/18 08:17; Admin Dose 500 MG; Start 08/30/18 at 13:00 Piperacillin Sod/ Tazobactam Sod 100 ml @ 200 mls/hr Q8 IVPB Last administered on 5/8/19at 13:56; Admin Dose 200 MLS/HR; Start 08/30/18 at 22:00 Metoprolol Succinate (Toprol Xl) 12.5 mg DAILY PO Last administered on 09/02/18 08:18; Admin Dose 12.5 MG; Start 09/01/18 at 14:00 GINA SUTTON MD September 02, 2018 17:37
[2018-09-02 20:00] VITALS: BP 151/95; PULSE 97; RESP 17
[2018-09-02] MEDS: INSULIN GLARGINE [LANTus] (100 UNITS/ML) SYG SC SCH (21:29)
[2018-09-03] MEDS: ACCU-CHEK XX SCH ×2 (01:37→22:39)
[2018-09-03 02:00] VITALS: BP 149/91; PULSE 100; RESP 17
[2018-09-03] MEDS: PANTOPRAZOLE (EC) 40 MG TAB PO SCH (05:50)
[2018-09-03] MEDS: PIPER-TAZO 3.375 GM IV (PMX) 100 ML IVPB SCH ×3 (05:50→20:30)
[2018-09-03] MEDS: INSULIN ASPART [NOVOLOG] 3 ML PEN SC SCH ×4 (08:00→20:28)
[2018-09-03 08:09] VITALS: BP 152/93; PULSE 101; RESP 18
[2018-09-03] MEDS: CALCIUM CARBONATE 500 MG CHEW TAB PO SCH ×3 (08:10→20:27)
[2018-09-03] MEDS: FERROUS SULFATE (EC) 325 MG TAB PO SCH (08:10)
[2018-09-03] MEDS: AMLODIPINE 10 MG TAB PO SCH (08:11)
[2018-09-03] MEDS: LINAGLIPTIN 5 MG TABLET PO SCH (08:11)
[2018-09-03] MEDS: PENTOXIFYLLINE (SR) 400 MG TAB PO SCH ×3 (08:11→20:27)
[2018-09-03] MEDS: FLUCONAZOLE 100 MG TAB PO SCH (08:11)
[2018-09-03] MEDS: COLLAGENASE 5 GM (UD JAR) TOP SCH (08:12)
[2018-09-03] MEDS: METOPROLOL (XL) 25 MG TAB PO SCH (08:12)
[2018-09-03] MEDS: DAKINS 0.0125%(1/40) 473 ML SOLUTION TP SCH ×2 (08:12→20:30)
--- NOTE | 2018-09-03 11:49 | CONS ---
Assessment/Plan Assessment/Plan Hospital Course (Demo Recall) No acute events, no fevers Microbiology: Blood culture on admission grew VRE susceptible to ampicillin and gram-negative rods, repeat blood cultures neg Indwelling's: Right upper extremity PICC line Antimicrobials: Zosyn Physical examination: This is a well-developed well-nourished middle-aged male who is in no distress. Head atraumatic normocephalic sclera nonicteric. Neck is supple. Chest rise symmetrical, breath sounds clear. Heart: S1-S2. Abdomen soft bowel sounds present. Extremities with bilateral lower extremity dressings present with purulent drainage and foul order also patient has gangrene all stools Assessment: 1. Severe sepsis, present on admission 2. Bilateral lower extremity's gangrene/osteomyelitis 3. Peripheral arterial disease 4. Diabetes 5. Acute kidney injury 6. Anemia Plan: Remains stable, repeat MRI L foot revealed no OM. Will need to complete 2 weeks abx for VRE/Bacteroides bacteremia either with Zosyn or PO Zyvox and PO Flagyl===> last dose 09/07/18. Continue monitoring RLE stump and f/u podiatry rec-s Consultation Date/Type/Reason Admit Date/Time Aug 23, 2018 at 21:27 Initial Consult Date 08/25/18 Type of Consult id Date/Time of Note DATE: 09/03/18 TIME: 11:49 Exam/Review of Systems Exam Vitals Vital Signs Date Temp Pulse Resp B/P (MAP) Pulse Ox O2 O2 Flow FiO2 Time Delivery Rate 09/03/18 98.3 101 18 152/93 99 Room Air 08:09 (112) Intake and Output 09/02/18 09/02/18 09/03/18 1515:00 23:00 07:00 IntakeIntake Total 100 ml 1200 ml 100 ml OutputOutput Total 500 ml BalanceBalance 100 ml 700 ml 100 ml Results Result Diagram: 09/02/18 0613 09/02/18 0613 Results 24hrs Laboratory Tests Test 09/02/18 12:11 09/02/18 17:32 09/02/18 21:26 09/03/18 01:36 Bedside Glucose 146 161 246 H 104 Test 09/03/18 08:09 Bedside Glucose 93 Medications Medication Current Medications Ferrous Sulfate (Ferrous Sulfate (Ec)) 325 mg DAILY PO Last administered on 09/03/18 08:10; Admin Dose 325 MG; Start 08/24/18 at 09:00 Linagliptin (Tradjenta) 5 mg DAILY PO Last administered on 09/03/18 08:11; Admin Dose 5 MG; Start 08/24/18 at 09:00 Pentoxifylline (Trental) 400 mg TID PO Last administered on 09/03/18 08:11; Admin Dose 400 MG; Start 08/24/18 at 09:00 Miscellaneous Information 1 ea NOTE XX ; Start 08/24/18 at 02:30 Glucose (Glutose) 15 gm Q15M PRN PO DECREASED GLUCOSE; Start 08/24/18 at 02:30 Glucose (Glutose) 22.5 gm Q15M PRN PO DECREASED GLUCOSE; Start 08/24/18 at 02:30 Dextrose (D50w Syringe) 25 ml Q15M PRN IV DECREASED GLUCOSE; Start 08/24/18 at 02:30 Dextrose (D50w Syringe) 50 ml Q15M PRN IV DECREASED GLUCOSE; Start 08/24/18 at 02:30 Glucagon (Glucagen) 1 mg Q15M PRN IM DECREASED GLUCOSE; Start 08/24/18 at 02:30 Glucose (Glutose) 15 gm Q15M PRN BUCCAL DECREASED GLUCOSE; Start 08/24/18 at 02:30 Pantoprazole (Protonix Tab) 40 mg DAILY@06 PO Last administered on 09/03/18at 05:50; Admin Dose 40 MG; Start 08/24/18 at 06:00 Acetaminophen (Tylenol Tab) 650 mg Q6H PRN PO MILD PAIN(1-3)OR ELEVATED TEMP Last administered on 08/31/18at 14:03; Admin Dose 650 MG; Start 08/24/18 at 03:00 Ondansetron HCl (Zofran Inj) 4 mg Q6H PRN IV NAUSEA AND/OR VOMITING Last administered on 08/25/18 09:10; Admin Dose 4 MG; Start 08/24/18 at 03:00 Miscellaneous Information (* Miscellaneous Pharmacy Order) Zosyn per pharmacy ONCE XX ; Start 08/24/18 at 03:00 Acetaminophen/ Hydrocodone Bitart ([place] (5/325)) 1 tab Q6H PRN PO MODERATE PAIN LEVEL 4-6 Last administered on 08/27/18 06:18; Admin Dose 1 TAB; Start 08/24/18 at 03:00 Miscellaneous Information (Pending Santyl Order For Wound Care) This patient mora... PRN PRN XX WOUND CARE; Start 08/24/18 at 03:00 Collagenase (Santyl) 1 applic DAILY TOP Last administered on 09/03/18 08:12; Admin Dose 1 APPLIC; Start 08/24/18 at 09:00 Collagenase (Santyl) 1 applic DAILY PRN TOP PRN; Start 08/24/18 at 09:00 Insulin Aspart (Novolog Insulin Pen) NOVOLOG *MILD* ALGORITHM WITH MEALS BEDTIME SC Last administered on 09/02/18 21:30; Admin Dose 2 UNIT; Start 08/24/18 at 08:00 Sodium Hypochlorite (Dakins Diluted ()) 1 applic BID TP Last administered on 09/03/18 08:12; Admin Dose 1 APPLIC; Start 08/24/18 at 21:00 Diagnostic Test (Pha) (Accu-Chek) 1 ea 02 XX Last administered on 09/03/18 01:37; Admin Dose 1 EA; Start 08/26/18 at 02:00 Docusate Sodium (Colace) 100 mg BID PRN PO CONSTIPATION Last administered on 12:38; Admin Dose 100 MG; Start 08/28/18 at 09:00 Insulin Glargine (Lantus) 24 units DAILY@2000 SC Last administered on 09/02/18 21:29; Admin Dose 24 UNITS; Start 08/28/18 at 20:00 Fluconazole (Diflucan) 100 mg DAILY PO Last administered on 09/03/18 08:11; Admin Dose 100 MG; Start 08/28/18 at 14:30 Polyethylene Glycol (Miralax) 17 gm DAILY PRN PO CONSTIPATION; Start 08/29/18 at 14:30 Amlodipine Besylate (Norvasc) 10 mg DAILY PO Last administered on 09/03/18 08:11; Admin Dose 10 MG; Start 08/31/18 at 09:00 Calcium Carbonate (Tums) 500 mg PC MEALS PO Last administered on 09/03/18 08:10; Admin Dose 500 MG; Start 08/30/18 at 13:00 Piperacillin Sod/ Tazobactam Sod 100 ml @ 200 mls/hr Q8 IVPB Last administered on 09/03/18at 05:50; Admin Dose 200 MLS/HR; Start 08/30/18 at 22:00 Metoprolol Succinate (Toprol Xl) 12.5 mg DAILY PO Last administered on 09/03/18at 08:12; Admin Dose 12.5 MG; Start 09/01/18 at 14:00 ROXANNA SOMERS NP September 03, 2018 11:49
[2018-09-03 14:00] VITALS: BP 129/83; PULSE 91; RESP 18
--- NOTE | 2018-09-03 16:08 | PN ---
Date/Time of Note Date/Time of Note DATE: 09/03/18 TIME: 16:07 Assessment/Plan VTE Prophylaxis Risk score (from Ns)>0 risk: 6 SCD applied (from [facility] [place]): No SCD contraindicated: low risk/ambulating Pharmacological prophylaxis: NA/contraindicated Pharm contraindication: low risk/ambulating Lines/Catheters IV C[facility]ter Type (from [facility] PICC Line Central line still needed: Yes Urinary Cath still in place: No Assessment/Plan Hospital Course 1 septic shock secondary to right foot infection with possible soft tissue infection, necrotizing fasciitis (?). Now with gram-negative bacteremia + sp Rt BKA on 08/26/18 2. Diabetes mellitus type II, controled. 3. Acute kidney injury on chronic kidney disease. 4. Hyponatremia, resolved. 5. Hypotension,resolved 6. Right BKA 7. Anemia, likely anemia of chronic disease, no blood loss no history of GI bleeding 8 Leukocytosis 9 hypocalcemia 10 Hypokalemia Assessment/Plan - cw epogen - cw PT - pt will need SNIF placment sp BKA for iv abx, wound care , spoke to CM working on it however pt has co pay - cw zosyn -cw lantus 24 and linagliptin -c/w bp meds - gi prophylaxis is Protonix -dvt PROPHYLAXIS , unable to tolerate, anemia. dc planning waiting SNIF Result Diagram: 09/02/18 0613 09/02/18 0613 Results 24hrs Laboratory Tests Test 09/02/18 17:32 09/02/18 21:26 09/03/18 01:36 09/03/18 08:09 Bedside Glucose 161 246 H 104 93 Test 09/03/18 12:04 Bedside Glucose 127 Subjective 24 Hr Interval Summary Free Text/Dictation no complains Exam/Review of Systems Exam Vitals Vital Signs Date Temp Pulse Resp B/P (MAP) Pulse Ox O2 O2 Flow FiO2 Time Delivery Rate 09/03/18 98.0 91 18 129/83 99 Room Air 14:00 (98) Intake and Output 09/02/18 09/02/18 09/03/18 1515:00 23:00 07:00 IntakeIntake Total 100 ml 1200 ml 100 ml OutputOutput Total 500 ml BalanceBalance 100 ml 700 ml 100 ml Exam Constitutional: alert, oriented Cardiovascular: regular rate and rhythm Gastrointestinal: soft Musculoskeletal: muscle weakness, swelling (rBKA with clear sutures s/pamputation of 3,4 5 toes on left Results Results 24hrs Laboratory Tests Test 09/02/18 17:32 09/02/18 21:26 09/03/18 01:36 09/03/18 08:09 Bedside Glucose 161 246 H 104 93 Test 09/03/18 12:04 Bedside Glucose 127 Medications Medication Current Medications Ferrous Sulfate (Ferrous Sulfate (Ec)) 325 mg DAILY PO Last administered on 09/03/18at 08:10; Admin Dose 325 MG; Start 08/24/18 at 09:00 Linagliptin (Tradjenta) 5 mg DAILY PO Last administered on 09/03/18at 08:11; Admin Dose 5 MG; Start 08/24/18 at 09:00 Pentoxifylline (Trental) 400 mg TID PO Last administered on 09/03/18at 12:08; Admin Dose 400 MG; Start 08/24/18 at 09:00 Miscellaneous Information 1 ea NOTE XX ; Start 08/24/18 at 02:30 Glucose (Glutose) 15 gm Q15M PRN PO DECREASED GLUCOSE; Start 08/24/18 at 02:30 Glucose (Glutose) 22.5 gm Q15M PRN PO DECREASED GLUCOSE; Start 08/24/18 at 02:30 Dextrose (D50w Syringe) 25 ml Q15M PRN IV DECREASED GLUCOSE; Start 08/24/18 at 02:30 Dextrose (D50w Syringe) 50 ml Q15M PRN IV DECREASED GLUCOSE; Start 08/24/18 at 02:30 Glucagon (Glucagen) 1 mg Q15M PRN IM DECREASED GLUCOSE; Start 08/24/18 at 02:30 Glucose (Glutose) 15 gm Q15M PRN BUCCAL DECREASED GLUCOSE; Start 08/24/18 at 02:30 Pantoprazole (Protonix Tab) 40 mg DAILY@06 PO Last administered on 09/03/18at 05:50; Admin Dose 40 MG; Start 08/24/18 at 06:00 Acetaminophen (Tylenol Tab) 650 mg Q6H PRN PO MILD PAIN(1-3)OR ELEVATED TEMP Last administered on 08/31/18at 14:03; Admin Dose 650 MG; Start 08/24/18 at 03:00 Ondansetron HCl (Zofran Inj) 4 mg Q6H PRN IV NAUSEA AND/OR VOMITING Last administered on 08/25/18 09:10; Admin Dose 4 MG; Start 08/24/18 at 03:00 Miscellaneous Information (* Miscellaneous Pharmacy Order) Zosyn per pharmacy ONCE XX ; Start 08/24/18 at 03:00 Acetaminophen/ Hydrocodone Bitart ([place] (5/325)) 1 tab Q6H PRN PO MODERATE PAIN LEVEL 4-6 Last administered on 08/27/18 06:18; Admin Dose 1 TAB; Start 08/24/18 at 03:00 Miscellaneous Information (Pending Santyl Order For Wound Care) This patient mora... PRN PRN XX WOUND CARE; Start 08/24/18 at 03:00 Collagenase (Santyl) 1 applic DAILY TOP Last administered on 09/03/18 08:12; Admin Dose 1 APPLIC; Start 08/24/18 at 09:00 Collagenase (Santyl) 1 applic DAILY PRN TOP PRN; Start 08/24/18 at 09:00 Insulin Aspart (Novolog Insulin Pen) NOVOLOG *MILD* ALGORITHM WITH MEALS BEDTIME SC Last administered on 09/02/18 21:30; Admin Dose 2 UNIT; Start 08/24/18 at 08:00 Sodium Hypochlorite (Dakins Diluted (/40)) 1 applic BID TP Last administered on 09/03/18 08:12; Admin Dose 1 APPLIC; Start 08/24/18 at 21:00 Diagnostic Test (Pha) (Accu-Chek) 1 ea 02 XX Last administered on 09/03/18 01:37; Admin Dose 1 EA; Start 08/26/18 at 02:00 Docusate Sodium (Colace) 100 mg BID PRN PO CONSTIPATION Last administered on 08/29/18 12:38; Admin Dose 100 MG; Start 08/28/18 at 09:00 Insulin Glargine (Lantus) 24 units DAILY@2000 SC Last administered on 09/02/18 21:29; Admin Dose 24 UNITS; Start 08/28/18 at 20:00 Fluconazole (Diflucan) 100 mg DAILY PO Last administered on 09/03/18 08:11; Admin Dose 100 MG; Start 08/28/18 at 14:30 Polyethylene Glycol (Miralax) 17 gm DAILY PRN PO CONSTIPATION; Start 08/29/18 at 14:30 Amlodipine Besylate (Norvasc) 10 mg DAILY PO Last administered on 09/03/18at 08:11; Admin Dose 10 MG; Start 08/31/18 at 09:00 Calcium Carbonate (Tums) 500 mg PC MEALS PO Last administered on 09/03/18at 12:08; Admin Dose 500 MG; Start 08/30/18 at 13:00 Piperacillin Sod/ Tazobactam Sod 100 ml @ 200 mls/hr Q8 IVPB Last administered on 09/03/18at 13:40; Admin Dose 200 MLS/HR; Start 08/30/18 at 22:00 Metoprolol Succinate (Toprol Xl) 12.5 mg DAILY PO Last administered on 09/03/18at 08:12; Admin Dose 12.5 MG; Start 09/01/18 at 14:00 GINA SUTTON MD September 03, 2018 16:08
[2018-09-03 19:35] VITALS: BP 153/89; PULSE 99; RESP 18
[2018-09-03] MEDS: INSULIN GLARGINE [LANTus] (100 UNITS/ML) SYG SC SCH (20:35)
[2018-09-04 02:02] VITALS: BP 128/85; PULSE 89; RESP 17
[2018-09-04] MEDS: PANTOPRAZOLE (EC) 40 MG TAB PO SCH (05:24)
[2018-09-04] MEDS: PIPER-TAZO 3.375 GM IV (PMX) 100 ML IVPB SCH ×3 (05:24→21:14)
[2018-09-04 07:20] VITALS: BP 139/85; PULSE 98; RESP 16
[2018-09-04] MEDS: INSULIN ASPART [NOVOLOG] 3 ML PEN SC SCH ×4 (07:57→20:49)
[2018-09-04] MEDS: FLUCONAZOLE 100 MG TAB PO SCH (08:15)
[2018-09-04] MEDS: FERROUS SULFATE (EC) 325 MG TAB PO SCH (08:15)
[2018-09-04] MEDS: PENTOXIFYLLINE (SR) 400 MG TAB PO SCH ×4 (08:15→20:31)
[2018-09-04] MEDS: CALCIUM CARBONATE 500 MG CHEW TAB PO SCH ×4 (08:15→19:05)
[2018-09-04] MEDS: LINAGLIPTIN 5 MG TABLET PO SCH (08:15)
[2018-09-04] MEDS: AMLODIPINE 10 MG TAB PO SCH (08:18)
[2018-09-04] MEDS: METOPROLOL (XL) 25 MG TAB PO SCH (08:19)
[2018-09-04] MEDS: COLLAGENASE 5 GM (UD JAR) TOP SCH (08:23)
[2018-09-04] MEDS: DAKINS 0.0125%(1/40) 473 ML SOLUTION TP SCH ×2 (08:23→20:50)
[2018-09-04] MEDS ORDERED: POTASSIUM CHLORIDE (SR) 20 MEQ TAB PO STA (08:36)
[2018-09-04] MEDS: POTASSIUM CHLORIDE 100 ML IVPB SCH ×2 (11:55→15:27)
--- NOTE | 2018-09-04 12:06 | CONS ---
Assessment/Plan Assessment/Plan Hospital Course (Demo Recall) S/p emesis, looks comfortable, no fevers Microbiology: Blood culture on admission grew VRE susceptible to ampicillin and gram-negative rods, repeat blood cultures neg Indwelling's: Right upper extremity PICC line Antimicrobials: Zosyn Physical examination: This is a well-developed well-nourished middle-aged male who is in no distress. Head atraumatic normocephalic sclera nonicteric. Neck is supple. Chest rise symmetrical, breath sounds clear. Heart: S1-S2. Abdomen soft bowel sounds present. Extremities with bilateral lower extremity dressings present with purulent drainage and foul order also patient has gangrene all stools Assessment: 1. Severe sepsis, present on admission 2. Bilateral lower extremity's gangrene/osteomyelitis 3. Peripheral arterial disease 4. Diabetes 5. Acute kidney injury 6. Anemia Plan: Remains stable, repeat MRI L foot revealed no OM. Will need to complete 2 weeks abx for VRE/Bacteroides bacteremia either with Zosyn or PO Zyvox and PO Flagyl===> last dose 09/07/18. Continue monitoring RLE stump Consultation Date/Type/Reason Admit Date/Time Aug 23, 2018 at 21:27 Initial Consult Date 08/25/18 Type of Consult id Date/Time of Note DATE: 09/04/18 TIME: 12:06 Exam/Review of Systems Exam Vitals Vital Signs Date Temp Pulse Resp B/P (MAP) Pulse Ox O2 O2 Flow FiO2 Time Delivery Rate 09/04/18 98.2 98 16 139/85 98 Room Air 07:20 (103) Intake and Output 09/03/18 09/03/18 09/04/18 1515:00 23:00 07:00 IntakeIntake Total 500 ml 300 ml 100 ml OutputOutput Total 500 ml BalanceBalance 0 ml 300 ml 100 ml Results Result Diagram: 09/04/18 0546 09/04/18 0546 Results 24hrs Laboratory Tests Test 09/03/18 17:18 09/03/18 20:26 09/04/18 05:46 09/04/18 07:55 Bedside Glucose 111 111 89 White Blood Count 11.6 H Red Blood Count 2.45 L Hemoglobin 7.4 L Hematocrit 21.9 L Mean Corpuscular 89.4 Volume Mean Corpuscular 30.2 Hemoglobin Mean Corpuscular 33.8 Hemoglobin Concent Red Cell Distribution 13.8 Width Platelet Count 230 Mean Platelet Volume 9.0 Immature Granulocytes 0.900 H % Neutrophils % 80.7 H Lymphocytes % 11.7 L Monocytes % 5.5 Eosinophils % 0.9 Basophils % 0.3 Nucleated Red Blood 0.0 Cells % Immature Granulocytes 0.100 H # Neutrophils # 9.4 H Lymphocytes # 1.4 Monocytes # 0.6 Eosinophils # 0.1 Basophils # 0.0 Nucleated Red Blood 0.0 Cells # Sodium Level 139 Potassium Level 3.3 L Chloride Level 109 Carbon Dioxide Level 24 Anion Gap 6 Blood Urea Nitrogen 19 Creatinine 1.56 H Est Glomerular Filtrat 47 L Rate mL/min Glucose Level 68 #L Calcium Level 8.0 L Medications Medication Current Medications Ferrous Sulfate (Ferrous Sulfate (Ec)) 325 mg DAILY PO Last administered on 09/04/18at 08:15; Admin Dose 325 MG; Start 08/24/18 at 09:00 Linagliptin (Tradjenta) 5 mg DAILY PO Last administered on 09/04/18at 08:15; Admin Dose 5 MG; Start 08/24/18 at 09:00 Pentoxifylline (Trental) 400 mg TID PO Last administered on 09/04/18at 08:15; Admin Dose 400 MG; Start 08/24/18 at 09:00 Miscellaneous Information 1 ea NOTE XX ; Start 08/24/18 at 02:30 Glucose (Glutose) 15 gm Q15M PRN PO DECREASED GLUCOSE; Start 08/24/18 at 02:30 Glucose (Glutose) 22.5 gm Q15M PRN PO DECREASED GLUCOSE; Start 08/24/18 at 02:30 Dextrose (D50w Syringe) 25 ml Q15M PRN IV DECREASED GLUCOSE; Start 08/24/18 at 02:30 Dextrose (D50w Syringe) 50 ml Q15M PRN IV DECREASED GLUCOSE; Start 08/24/18 at 02:30 Glucagon (Glucagen) 1 mg Q15M PRN IM DECREASED GLUCOSE; Start 08/24/18 at 02:30 Glucose (Glutose) 15 gm Q15M PRN BUCCAL DECREASED GLUCOSE; Start 08/24/18 at 02:30 Pantoprazole (Protonix Tab) 40 mg DAILY@06 PO Last administered on 09/04/18at 05:24; Admin Dose 40 MG; Start 08/24/18 at 06:00 Acetaminophen (Tylenol Tab) 650 mg Q6H PRN PO MILD PAIN(1-3)OR ELEVATED TEMP Last administered on 08/31/18 14:03; Admin Dose 650 MG; Start 08/24/18 at 03:00 Ondansetron HCl (Zofran Inj) 4 mg Q6H PRN IV NAUSEA AND/OR VOMITING Last administered on 08/25/18 09:10; Admin Dose 4 MG; Start 08/24/18 at 03:00 Miscellaneous Information (* Miscellaneous Pharmacy Order) Zosyn per pharmacy ONCE XX ; Start 08/24/18 at 03:00 Acetaminophen/ Hydrocodone Bitart ([employer] (5/325)) 1 tab Q6H PRN PO MODERATE PAIN LEVEL 4-6 Last administered on 08/27/18 06:18; Admin Dose 1 TAB; Start at 03:00 Miscellaneous Information (Pending Santyl Order For Wound Care) This patient mora... PRN PRN XX WOUND CARE; Start 08/24/18 at 03:00 Collagenase (Santyl) 1 applic DAILY TOP Last administered on 09/03/18 08:12; Admin Dose 1 APPLIC; Start 08/24/18 at 09:00 Collagenase (Santyl) 1 applic DAILY PRN TOP PRN; Start 08/24/18 at 09:00 Insulin Aspart (Novolog Insulin Pen) NOVOLOG *MILD* ALGORITHM WITH MEALS BEDTIME SC Last administered on 09/02/18 21:30; Admin Dose 2 UNIT; Start 08/24/18 at 08:00 Sodium Hypochlorite (Dakins Diluted (40)) 1 applic BID TP Last administered on 09/03/18 08:12; Admin Dose 1 APPLIC; Start 08/24/18 at 21:00 Diagnostic Test (Pha) (Accu-Chek) 1 ea 02 XX Last administered on 09/03/18 01:37; Admin Dose 1 EA; Start 08/26/18 at 02:00 Docusate Sodium (Colace) 100 mg BID PRN PO CONSTIPATION Last administered on 08/29/18 12:38; Admin Dose 100 MG; Start 08/28/18 at 09:00 Fluconazole (Diflucan) 100 mg DAILY PO Last administered on 5/10/19at 08:15; Admin Dose 100 MG; Start 08/28/18 at 14:30 Polyethylene Glycol (Miralax) 17 gm DAILY PRN PO CONSTIPATION; Start 08/29/18 at 14:30 Amlodipine Besylate (Norvasc) 10 mg DAILY PO Last administered on 09/04/18at 08:18; Admin Dose 10 MG; Start 08/31/18 at 09:00 Calcium Carbonate (Tums) 500 mg PC MEALS PO Last administered on 09/03/18at 20:27; Admin Dose 500 MG; Start 08/30/18 at 13:00 Piperacillin Sod/ Tazobactam Sod 100 ml @ 200 mls/hr Q8 IVPB Last administered on 09/04/18 05:24; Admin Dose 200 MLS/HR; Start 08/30/18 at 22:00 Metoprolol Succinate (Toprol Xl) 12.5 mg DAILY PO Last administered on 09/04/18at 08:19; Admin Dose 12.5 MG; Start 09/01/18 at 14:00 Insulin Glargine (Lantus) 15 units DAILY@2000 SC ; Start 09/04/18 at 20:00 Potassium Chloride 100 ml @ 50 mls/hr Q2H IVPB Last administered on 09/04/18at 11:55; Admin Dose 50 MLS/HR; Start 09/04/18 at 11:00; Stop 09/04/18 at 14:59 ROXANNA SOMERS NP September 04, 2018 12:06
--- NOTE | 2018-09-04 13:09 | PN ---
Date/Time of Note Date/Time of Note DATE: 09/04/18 TIME: 13:07 Assessment/Plan VTE Pro[place]axis [place] [facility] [place]: 4 [place]CD [place] [facility] [place]CD contraindicated: bilateral amputee Pharmacological prophylaxis: NA/contraindicated Pharm contraindication: bleeding Lines/Catheters IV C[facility]ter Type (from [facility]): PICC Line Central line still needed: Yes Urinary Cath still in place: No Assessment/Plan Hospital Course 1 septic shock secondary to right foot infection with possible soft tissue infection, necrotizing fasciitis (?). Now with gram-negative bacteremia + sp Rt BKA on 08/26/18 2. Diabetes mellitus type II, controled. 3. Acute kidney injury on chronic kidney disease. 4. Hyponatremia, resolved. 5. Hypotension,resolved 6. Right BKA 7. Anemia, likely anemia of chronic disease, no blood loss no history of GI bleeding 8 Leukocytosis 9 hypocalcemia Assessment/Plan - cw epogen -keep open right BKA - cw PT - pt will need SNF placement sp BKA for iv abx, wound care , spoke to CM working on it however pt has co pay - cw zosyn -cw lantus 15 and linagliptin -c/w bp meds - GI prophylaxis is Protonix -dvt PROPHYLAXIS , unable to tolerate, anemia. Result Diagram: 09/04/1854509/04/18545 Results 24hrs Laboratory Tests Test 09/03/18 17:18 09/03/18 20:26 09/04/18 05:46 09/04/18 07:55 Bedside Glucose 111 111 89 White Blood Count 11.6 H Red Blood Count 2.45 L Hemoglobin 7.4 L Hematocrit 21.9 L Mean Corpuscular 89.4 Volume Mean Corpuscular 30.2 Hemoglobin Mean Corpuscular 33.8 Hemoglobin Concent Red Cell Distribution 13.8 Width Platelet Count 230 Mean Platelet Volume 9.0 Immature Granulocytes 0.900 H % Neutrophils % 80.7 H Lymphocytes % 11.7 L Monocytes % 5.5 Eosinophils % 0.9 Basophils % 0.3 Nucleated Red Blood 0.0 Cells % Immature Granulocytes 0.100 H # Neutrophils # 9.4 H Lymphocytes # 1.4 Monocytes # 0.6 Eosinophils # 0.1 Basophils # 0.0 Nucleated Red Blood 0.0 Cells # Sodium Level 139 Potassium Level 3.3 L Chloride Level 109 Carbon Dioxide Level 24 Anion Gap 6 Blood Urea Nitrogen 19 Creatinine 1.56 H Est Glomerular 47 L Filtrat Rate mL/min Glucose Level 68 #L Calcium Level 8.0 L Test 09/04/18 11:59 Bedside Glucose 111 Subjective 24 Hr Interval Summary Constitutional: no complaints Musculoskeletal: restricted range of motion Exam/Review of Systems Exam Vitals Vital Signs Date Temp Pulse Resp B/P (MAP) Pulse Ox O2 O2 Flow FiO2 Time Delivery Rate 09/04/18 98.2 98 16 139/85 98 Room Air 07:20 (103) Intake and Output 09/03/18 09/03/18 09/04/18 1515:00 23:00 07:00 IntakeIntake Total 500 ml 300 ml 100 ml OutputOutput Total 500 ml BalanceBalance 0 ml 300 ml 100 ml Constitutional: alert, oriented Neck: supple Respiratory: clear to auscultation Cardiovascular: regular rate and rhythm Gastrointestinal: soft Musculoskeletal: other (right BKA, delio, some purulent dc) Results Results 24hrs Laboratory Tests Test 09/03/18 17:18 09/03/18 20:26 09/04/18 05:46 09/04/18 07:55 Bedside Glucose 111 111 89 White Blood Count 11.6 H Red Blood Count 2.45 L Hemoglobin 7.4 L Hematocrit 21.9 L Mean Corpuscular 89.4 Volume Mean Corpuscular 30.2 Hemoglobin Mean Corpuscular 33.8 Hemoglobin Concent Red Cell Distribution 13.8 Width Platelet Count 230 Mean Platelet Volume 9.0 Immature Granulocytes 0.900 H % Neutrophils % 80.7 H Lymphocytes % 11.7 L Monocytes % 5.5 Eosinophils % 0.9 Basophils % 0.3 Nucleated Red Blood 0.0 Cells % Immature Granulocytes 0.100 H # Neutrophils # 9.4 H Lymphocytes # 1.4 Monocytes # 0.6 Eosinophils # 0.1 Basophils # 0.0 Nucleated Red Blood 0.0 Cells # Sodium Level 139 Potassium Level 3.3 L Chloride Level 109 Carbon Dioxide Level 24 Anion Gap 6 Blood Urea Nitrogen 19 Creatinine 1.56 H Est Glomerular 47 L Filtrat Rate mL/min Glucose Level 68 #L Calcium Level 8.0 L Test 09/04/18 11:59 Bedside Glucose 111 Medications Medication Current Medications Ferrous Sulfate (Ferrous Sulfate (Ec)) 325 mg DAILY PO Last administered on 09/04/18at 08:15; Admin Dose 325 MG; Start 08/24/18 at 09:00 Linagliptin (Tradjenta) 5 mg DAILY PO Last administered on 09/04/18at 08:15; Admin Dose 5 MG; Start 08/24/18 at 09:00 Pentoxifylline (Trental) 400 mg TID PO Last administered on 09/04/18at 08:15; Admin Dose 400 MG; Start 08/24/18 at 09:00 Miscellaneous Information 1 ea NOTE XX ; Start 08/24/18 at 02:30 Glucose (Glutose) 15 gm Q15M PRN PO DECREASED GLUCOSE; Start 08/24/18 at 02:30 Glucose (Glutose) 22.5 gm Q15M PRN PO DECREASED GLUCOSE; Start 08/24/18 at 02:30 Dextrose (D50w Syringe) 25 ml Q15M PRN IV DECREASED GLUCOSE; Start 08/24/18 at 02:30 Dextrose (D50w Syringe) 50 ml Q15M PRN IV DECREASED GLUCOSE; Start 08/24/18 at 02:30 Glucagon (Glucagen) 1 mg Q15M PRN IM DECREASED GLUCOSE; Start 08/24/18 at 02:30 Glucose (Glutose) 15 gm Q15M PRN BUCCAL DECREASED GLUCOSE; Start 08/24/18 at 02:30 Pantoprazole (Protonix Tab) 40 mg DAILY@06 PO Last administered on 09/04/18at 05:24; Admin Dose 40 MG; Start 08/24/18 at 06:00 Acetaminophen (Tylenol Tab) 650 mg Q6H PRN PO MILD PAIN(1-3)OR ELEVATED TEMP Last administered on 08/31/18at 14:03; Admin Dose 650 MG; Start 08/24/18 at 03:00 Ondansetron HCl (Zofran Inj) 4 mg Q6H PRN IV NAUSEA AND/OR VOMITING Last administered on 08/25/18 09:10; Admin Dose 4 MG; Start 08/24/18 at 03:00 Miscellaneous Information (* Miscellaneous Pharmacy Order) Zosyn per pharmacy ONCE XX ; Start 08/24/18 at 03:00 Acetaminophen/ Hydrocodone Bitart ([place] (5/325)) 1 tab Q6H PRN PO MODERATE PAIN LEVEL 4-6 Last administered on 08/27/18at 06:18; Admin Dose 1 TAB; Start 08/24/18 at 03:00 Miscellaneous Information (Pending Santyl Order For Wound Care) This patient mora... PRN PRN XX WOUND CARE; Start 08/24/18 at 03:00 Collagenase (Santyl) 1 applic DAILY TOP Last administered on 09/03/18 08:12; Admin Dose 1 APPLIC; Start 08/24/18 at 09:00 Collagenase (Santyl) 1 applic DAILY PRN TOP PRN; Start 08/24/18 at 09:00 Insulin Aspart (Novolog Insulin Pen) NOVOLOG *MILD* ALGORITHM WITH MEALS BEDTIME SC Last administered on 09/02/18 21:30; Admin Dose 2 UNIT; Start 08/24/18 at 08:00 Sodium Hypochlorite (Dakins Diluted ()) 1 applic BID TP Last administered on 09/03/18 08:12; Admin Dose 1 APPLIC; Start 08/24/18 at 21:00 Diagnostic Test (Pha) (Accu-Chek) 1 ea 02 XX Last administered on 09/03/18 01:37; Admin Dose 1 EA; Start 08/26/18 at 02:00 Docusate Sodium (Colace) 100 mg BID PRN PO CONSTIPATION Last administered on 08/29/18 12:38; Admin Dose 100 MG; Start 08/28/18 at 09:00 Fluconazole (Diflucan) 100 mg DAILY PO Last administered on 09/04/18 08:15; Admin Dose 100 MG; Start 08/28/18 at 14:30 Polyethylene Glycol (Miralax) 17 gm DAILY PRN PO CONSTIPATION; Start 08/29/18 at 14:30 Amlodipine Besylate (Norvasc) 10 mg DAILY PO Last administered on 09/04/18 08:18; Admin Dose 10 MG; Start 08/31/18 at 09:00 Calcium Carbonate (Tums) 500 mg PC MEALS PO Last administered on 09/03/18 20:27; Admin Dose 500 MG; Start 08/30/18 at 13:00 Piperacillin Sod/ Tazobactam Sod 100 ml @ 200 mls/hr Q8 IVPB Last administered on 09/04/18 05:24; Admin Dose 200 MLS/HR; Start 08/30/18 at 22:00 Metoprolol Succinate (Toprol Xl) 12.5 mg DAILY PO Last administered on 09/04/18at 08:19; Admin Dose 12.5 MG; Start 09/01/18 at 14:00 Insulin Glargine (Lantus) 15 units DAILY@2000 SC ; Start 09/04/18 at 20:00 Potassium Chloride 100 ml @ 50 mls/hr Q2H IVPB Last administered on 09/04/18at 11:55; Admin Dose 50 MLS/HR; Start 09/04/18 at 11:00; Stop 09/04/18 at 14:59 TEODORO RIDER September 04, 2018 13:09
[2018-09-04 14:25] VITALS: BP 144/90; PULSE 93; RESP 16
[2018-09-04 20:00] VITALS: BP 131/83; PULSE 95; RESP 18
[2018-09-04] MEDS: INSULIN GLARGINE [LANTus] (100 UNITS/ML) SYG SC SCH (20:33)
[2018-09-05 02:00] VITALS: BP 144/83; PULSE 94; RESP 18
[2018-09-05] MEDS: ACCU-CHEK XX SCH (02:00)
[2018-09-05] MEDS: PIPER-TAZO 3.375 GM IV (PMX) 100 ML IVPB SCH ×3 (05:34→22:47)
[2018-09-05] MEDS: PANTOPRAZOLE (EC) 40 MG TAB PO SCH (05:34)
[2018-09-05 07:20] VITALS: BP 145/86; PULSE 90; RESP 16
[2018-09-05] MEDS: INSULIN ASPART [NOVOLOG] 3 ML PEN SC SCH ×4 (07:58→21:00)
[2018-09-05] MEDS: AMLODIPINE 10 MG TAB PO SCH (08:25)
[2018-09-05] MEDS: FLUCONAZOLE 100 MG TAB PO SCH (08:25)
[2018-09-05] MEDS: FERROUS SULFATE (EC) 325 MG TAB PO SCH (08:25)
[2018-09-05] MEDS: METOPROLOL (XL) 25 MG TAB PO SCH (08:27)
[2018-09-05] MEDS: LINAGLIPTIN 5 MG TABLET PO SCH (08:27)
[2018-09-05] MEDS: PENTOXIFYLLINE (SR) 400 MG TAB PO SCH ×3 (08:27→21:04)
[2018-09-05] MEDS: CALCIUM CARBONATE 500 MG CHEW TAB PO SCH ×3 (08:27→21:04)
[2018-09-05] MEDS: DAKINS 0.0125%(1/40) 473 ML SOLUTION TP SCH ×2 (08:28→21:00)
[2018-09-05] MEDS: COLLAGENASE 5 GM (UD JAR) TOP SCH (08:28)
--- NOTE | 2018-09-05 11:20 | PN ---
Date/Time of Note Date/Time of Note DATE: 09/05/18 TIME: 11:20 Assessment/Plan VTE Prophylaxis [place] [facility] [place] risk: 4 SCD applied (from [facility] [place] No SCD contraindicated: bilateral amputee Pharmacological prophylaxis: NA/contraindicated Pharm contraindication: anticoag not tolerated Lines/Catheters IV Catheter Type (from [facility]): PICC Line Central line still needed: Yes Urinary Cath still in place: No Assessment/Plan Hospital Course 1 septic shock secondary to right foot infection with possible soft tissue infection, necrotizing fasciitis (?). Now with gram-negative bacteremia + sp Rt BKA on 08/26/18 2. Diabetes mellitus type II, controled. 3. Acute kidney injury on chronic kidney disease. 4. Hyponatremia, resolved. 5. Hypotension,resolved 6. Right BKA 7. Anemia, likely anemia of chronic disease, no blood loss no history of GI bleeding 8 Leukocytosis 9 hypocalcemia Assessment/Plan - cw Epogen -keep open right BKA - cw PT -c/w iron supplement - pt will need SNF placement sp BKA for iv abx, wound care, spoke to CM working on it however pt has co pay -pt can not be dc home - cw zosyn -cw lantus 15 and linagliptin -c/w bp meds - GI prophylaxis is Protonix -dvt PROPHYLAXIS , unable to tolerate, anemia. Result Diagram: 09/05/1842109/05/182 Results 24hrs Laboratory Tests Test 09/04/18 11:59 09/04/18 17:07 09/04/18 20:31 09/05/18 04:22 Bedside Glucose 111 92 99 White Blood Count 10.4 Red Blood Count 2.47 L Hemoglobin 7.5 L Hematocrit 21.9 L Mean Corpuscular 88.7 Volume Mean Corpuscular 30.4 Hemoglobin Mean Corpuscular 34.2 Hemoglobin Concent Red Cell 13.9 Distribution Width Platelet Count 258 Mean Platelet Volume 9.2 Immature 0.600 H Granulocytes % Neutrophils % 78.8 H Lymphocytes % 13.7 L Monocytes % 5.5 Eosinophils % 1.1 Basophils % 0.3 Nucleated Red Blood 0.0 Cells % Immature 0.060 H Granulocytes # Neutrophils # 8.2 H Lymphocytes # 1.4 Monocytes # 0.6 Eosinophils # 0.1 Basophils # 0.0 Nucleated Red Blood 0.0 Cells # Sodium Level 138 Potassium Level 4.1 Chloride Level 108 Carbon Dioxide Level 25 Anion Gap 5 Blood Urea Nitrogen 20 Creatinine 1.94 H Est Glomerular 36 L Filtrat Rate mL/min Glucose Level 70 Calcium Level 8.0 L Test 09/05/18 07:55 09/05/18 08:12 09/05/18 08:31 09/05/18 08:50 Bedside Glucose 56 L 61 L 74 98 Test 09/05/18 09:38 Bedside Glucose 95 Subjective 24 Hr Interval Summary Constitutional: no complaints ENT: no complaints Exam/Review of Systems Exam Vitals Vital Signs Date Temp Pulse Resp B/P (MAP) Pulse Ox O2 O2 Flow FiO2 Time Delivery Rate 09/05/18 97.9 90 16 145/86 98 Room Air 07:20 (105) Intake and Output 09/04/18 09/04/18 09/05/18 1515:00 23:00 07:00 IntakeIntake Total 340 ml 540 ml 580 ml OutputOutput Total 900 ml BalanceBalance 340 ml 540 ml -320 ml Constitutional: alert, oriented Respiratory: clear to auscultation Cardiovascular: regular rate and rhythm Gastrointestinal: soft Musculoskeletal: swelling (right bka), other (ledft foot amp 3-5 toes) Results Results 24hrs Laboratory Tests Test 09/04/18 11:59 09/04/18 17:07 09/04/18 20:31 09/05/18 04:22 Bedside Glucose 111 92 99 White Blood Count 10.4 Red Blood Count 2.47 L Hemoglobin 7.5 L Hematocrit 21.9 L Mean Corpuscular 88.7 Volume Mean Corpuscular 30.4 Hemoglobin Mean Corpuscular 34.2 Hemoglobin Concent Red Cell 13.9 Distribution Width Platelet Count 258 Mean Platelet Volume 9.2 Immature 0.600 H Granulocytes % Neutrophils % 78.8 H Lymphocytes % 13.7 L Monocytes % 5.5 Eosinophils % 1.1 Basophils % 0.3 Nucleated Red Blood 0.0 Cells % Immature 0.060 H Granulocytes # Neutrophils # 8.2 H Lymphocytes # 1.4 Monocytes # 0.6 Eosinophils # 0.1 Basophils # 0.0 Nucleated Red Blood 0.0 Cells # Sodium Level 138 Potassium Level 4.1 Chloride Level 108 Carbon Dioxide Level 25 Anion Gap 5 Blood Urea Nitrogen 20 Creatinine 1.94 H Est Glomerular 36 L Filtrat Rate mL/min Glucose Level 70 Calcium Level 8.0 L Test 09/05/18 07:55 09/05/18 08:12 09/05/18 08:31 09/05/18 08:50 Bedside Glucose 56 L 61 L 74 98 Test 09/05/18 09:38 Bedside Glucose 95 Medications Medication Current Medications Ferrous Sulfate (Ferrous Sulfate (Ec)) 325 mg DAILY PO Last administered on 09/05/18 08:25; Admin Dose 325 MG; Start 08/24/18 at 09:00 Linagliptin (Tradjenta) 5 mg DAILY PO Last administered on 09/05/18 08:27; Admin Dose 5 MG; Start 08/24/18 at 09:00 Pentoxifylline (Trental) 400 mg TID PO Last administered on 09/05/18 08:27; Admin Dose 400 MG; Start 08/24/18 at 09:00 Miscellaneous Information 1 ea NOTE XX ; Start 08/24/18 at 02:30 Glucose (Glutose) 15 gm Q15M PRN PO DECREASED GLUCOSE Last administered on 09/05/18at 07:57; Admin Dose 15 GM; Start 08/24/18 at 02:30 Glucose (Glutose) 22.5 gm Q15M PRN PO DECREASED GLUCOSE; Start 08/24/18 at 02:30 Dextrose (D50w Syringe) 25 ml Q15M PRN IV DECREASED GLUCOSE; Start 08/24/18 at 02:30 Dextrose (D50w Syringe) 50 ml Q15M PRN IV DECREASED GLUCOSE; Start 08/24/18 at 02:30 Glucagon (Glucagen) 1 mg Q15M PRN IM DECREASED GLUCOSE; Start 08/24/18 at 02:30 Glucose (Glutose) 15 gm Q15M PRN BUCCAL DECREASED GLUCOSE; Start 08/24/18 at 02:30 Pantoprazole (Protonix Tab) 40 mg DAILY@06 PO Last administered on 09/05/18 05:34; Admin Dose 40 MG; Start 08/24/18 at 06:00 Acetaminophen (Tylenol Tab) 650 mg Q6H PRN PO MILD PAIN(1-3)OR ELEVATED TEMP [place] [facility] administered on 08/31/18at 14:03; Admin Dose 650 MG; Start 08/24/18 at 03:00 Ondansetron HCl (Zofran Inj) 4 mg Q6H PRN IV NAUSEA AND/OR VOMITING Last administered on 08/25/18 09:10; Admin Dose 4 MG; Start 08/24/18 at 03:00 Miscellaneous Information (* Miscellaneous Pharmacy Order) Zosyn per pharmacy ONCE XX ; Start 08/24/18 at 03:00 Acetaminophen/ Hydrocodone Bitart ([place] (5/325)) 1 tab Q6H PRN PO MODERATE PAIN LEVEL 4-6 Last administered on 08/27/18 06:18; Admin Dose 1 TAB; Start 08/24/18 at 03:00 Miscellaneous Information (Pending Santyl Order For Wound Care) This patient mora... PRN PRN XX WOUND CARE; Start 08/24/18 at 03:00 Collagenase (Santyl) 1 applic DAILY TOP Last administered on 09/03/18 08:12; Admin Dose 1 APPLIC; Start 08/24/18 at 09:00 Collagenase (Santyl) 1 applic DAILY PRN TOP PRN; Start 08/24/18 at 09:00 Insulin Aspart (Novolog Insulin Pen) NOVOLOG *MILD* ALGORITHM WITH MEALS BEDTIME SC Last administered on 09/02/18 21:30; Admin Dose 2 UNIT; Start 08/24/18 at 08:00 Sodium Hypochlorite (Dakins Diluted (40)) 1 applic BID TP Last administered on 09/03/18 08:12; Admin Dose 1 APPLIC; Start 08/24/18 at 21:00 Diagnostic Test (Pha) (Accu-Chek) 1 ea 02 XX Last administered on 09/03/18 01:37; Admin Dose 1 EA; Start 08/26/18 at 02:00 Docusate Sodium (Colace) 100 mg BID PRN PO CONSTIPATION Last administered on 08/29/18 12:38; Admin Dose 100 MG; Start 08/28/18 at 09:00 Fluconazole (Diflucan) 100 mg DAILY PO Last administered on 09/05/18 08:25; Admin Dose 100 MG; Start 08/28/18 at 14:30 Polyethylene Glycol (Miralax) 17 gm DAILY PRN PO CONSTIPATION; Start 08/29/18 at 14:30 Amlodipine Besylate (Norvasc) 10 mg DAILY PO Last administered on 09/05/18 08:25; Admin Dose 10 MG; Start 08/31/18 at 09:00 Calcium Carbonate (Tums) 500 mg PC MEALS PO Last administered on 09/05/18 08:27; Admin Dose 500 MG; Start 08/30/18 at 13:00 Piperacillin Sod/ Tazobactam Sod 100 ml @ 200 mls/hr Q8 IVPB Last administered on 09/05/18 05:34; Admin Dose 200 MLS/HR; Start 08/30/18 at 22:00 Metoprolol Succinate (Toprol Xl) 12.5 mg DAILY PO Last administered on 09/05/18at 08:27; Admin Dose 12.5 MG; Start 09/01/18 at 14:00 Insulin Glargine (Lantus) 15 units DAILY@2000 SC Last administered on 09/04/18 20:33; Admin Dose 15 UNITS; Start 09/04/18 at 20:00 TEODORO RIDER September 05, 2018 11:20
[2018-09-05] MEDS ORDERED: EPOETIN ALFA-EPBX (ESRD) 4,000 UNIT/ML VIAL SC ONE (12:00)
[2018-09-05 14:03] VITALS: BP 137/87; PULSE 103; RESP 18
[2018-09-05] MEDS: FUROSEMIDE 20 MG TAB PO SCH (17:07)
--- NOTE | 2018-09-05 18:08 | CONS ---
Assessment/Plan Assessment/Plan Hospital Course (Demo Recall) ID PROGRESS NOTE CURRENT ABX: DAY #=> Zosyn +Diflucan 24H INTERVAL SUMMARY * Awake, VSS, no fevers, no new issues, offers no complaints, no questions * chart reviewed IMAGING * 08/29/18 MRI FOOT: IMPRESSION: * 1. Status post amputation of the fifth ray to the level of the proximal diaphysis of the fifth metatarsal and status post third and fourth digits amputation at the level of the MTP joints. * 2. Mild reactive marrow edema at the amputation margin of the fifth met atarsal without marrow infiltrative signal to suggest osteomyelitis at this time. * 3. Stress-related/reactive edema at the base of the second metatarsal noted again. Degenerative changes as above. * 4. Diffuse subcutaneous edema in the dorsum of the foot and remaining toes and diffuse muscle edema. MICRO/OTHER * 08/25/18 BCX (-0 * 08/25/18 WOUND CX: WOUND CULTURE Final Organism 1 CORYNEBACTERIUM SPECIES QUANTITY 3+ Organism 2 VANCO RESISTANT ENTEROCOCCUS QUANTITY SCANT GROWTH . MULTI DRUG RESISTANT ORGANISM Organism 3 COAGULASE NEGATIVE STAPH QUANTITY SCANT GROWTH Organism 4 MARCEL PARAPSILOSIS QUANTITY 1+ * 08/23/18 BCX (+) Organism 1 VANCO RESISTANT ENTEROCOCCUS . MULTI DRUG RESISTANT ORGANISM Organism 2 BACTEROIDES FRAGILIS PHYSICAL EXAMINATION: GENERAL: VSS, NAD HEENT: AT, NC, anicteric, NECK: Supple, CHEST: Equal chest rise bilaterally without dyspnea on observation HEART: Pulse RRR ABDOMEN: soft EXTREMITIES: Warm, dry SKIN: No rash, no diaphoresis ID ASSESSMENT 52 yo M admit with: 1. Severe sepsis, present on admission=> RESOLVED 2. Bilateral lower extremity's gangrene-> no evidence osteomyelitis post amputation 5th ray and toes 3. Peripheral arterial disease 4. Diabetes 5. Acute kidney injury 6. Anemia (-)MRSA Nares ABX ALLERGIES: KNDA INVASIVES: PIV CURRENT ABX: DAY # => Zosyn +Diflucan ID RECOMMENDATIONS/PLAN: 1. Continue current ABX over the weekend 2. 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 Consultation Date/Type/Reason Admit Date/Time Aug 23, 2018 at 21:27 Initial Consult Date 08/25/18 Date/Time of Note DATE: 09/05/18 TIME: 18:07 Exam/Review of Systems Exam Vitals Vital Signs Date Temp Pulse Resp B/P (MAP) Pulse Ox O2 O2 Flow FiO2 Time Delivery Rate 09/05/18 98.3 103 18 137/87 98 Room Air 14:03 (104) Intake and Output 09/04/18 09/04/18 09/05/18 1515:00 23:00 07:00 IntakeIntake Total 340 ml 540 ml 580 ml OutputOutput Total 900 ml BalanceBalance 340 ml 540 ml -320 ml Results Result Diagram: 09/05/18 0422 09/05/18 0422 Results 24hrs Laboratory Tests Test 09/04/18 20:31 09/05/18 04:22 09/05/18 07:55 09/05/18 08:12 Bedside Glucose 99 56 L 61 L White Blood Count 10.4 Red Blood Count 2.47 L Hemoglobin 7.5 L Hematocrit 21.9 L Mean Corpuscular 88.7 Volume Mean Corpuscular 30.4 Hemoglobin Mean Corpuscular 34.2 Hemoglobin Concent Red Cell 13.9 Distribution Width Platelet Count 258 Mean Platelet Volume 9.2 Immature 0.600 H Granulocytes % Neutrophils % 78.8 H Lymphocytes % 13.7 L Monocytes % 5.5 Eosinophils % 1.1 Basophils % 0.3 Nucleated Red Blood 0.0 Cells % Immature 0.060 H Granulocytes # Neutrophils # 8.2 H Lymphocytes # 1.4 Monocytes # 0.6 Eosinophils # 0.1 Basophils # 0.0 Nucleated Red Blood 0.0 Cells # Sodium Level 138 Potassium Level 4.1 Chloride Level 108 Carbon Dioxide Level 25 Anion Gap 5 Blood Urea Nitrogen 20 Creatinine 1.94 H Est Glomerular 36 L Filtrat Rate mL/min Glucose Level 70 Calcium Level 8.0 L Test 09/05/18 08:31 09/05/18 08:50 09/05/18 09:38 09/05/18 11:51 Bedside Glucose 74 98 95 120 Test 09/05/18 17:04 Bedside Glucose 157 Medications Medication Current Medications Ferrous Sulfate (Ferrous Sulfate (Ec)) 325 mg DAILY PO Last administered on 09/05/18at 08:25; Admin Dose 325 MG; Start 08/24/18 at 09:00 Linagliptin (Tradjenta) 5 mg DAILY PO Last administered on 09/05/18 08:27; Admin Dose 5 MG; Start 08/24/18 at 09:00 Pentoxifylline (Trental) 400 mg TID PO Last administered on 09/05/18 08:27; Admin Dose 400 MG; Start 08/24/18 at 09:00 Miscellaneous Information 1 ea NOTE XX ; Start 08/24/18 at 02:30 Glucose (Glutose) 15 gm Q15M PRN PO DECREASED GLUCOSE Last administered on 09/05/18at 07:57; Admin Dose 15 GM; Start 08/24/18 at 02:30 Glucose (Glutose) 22.5 gm Q15M PRN PO DECREASED GLUCOSE; Start 08/24/18 at 02:30 Dextrose (D50w Syringe) 25 ml Q15M PRN IV DECREASED GLUCOSE; Start 08/24/18 at 02:30 Dextrose (D50w Syringe) 50 ml Q15M PRN IV DECREASED GLUCOSE; Start 08/24/18 at 02:30 Glucagon (Glucagen) 1 mg Q15M PRN IM DECREASED GLUCOSE; Start 08/24/18 at 02:30 Glucose (Glutose) 15 gm Q15M PRN BUCCAL DECREASED GLUCOSE; Start 08/24/18 at 02:30 Pantoprazole (Protonix Tab) 40 mg DAILY@06 PO Last administered on 09/05/18 05:34; Admin Dose 40 MG; Start 08/24/18 at 06:00 Acetaminophen (Tylenol Tab) 650 mg Q6H PRN PO MILD PAIN(1-3)OR ELEVATED TEMP Last administered on 08/31/18 14:03; Admin Dose 650 MG; Start 08/24/18 at 03:00 Ondansetron HCl (Zofran Inj) 4 mg Q6H PRN IV NAUSEA AND/OR VOMITING Last administered on 08/25/18 09:10; Admin Dose 4 MG; Start 08/24/18 at 03:00 Miscellaneous Information (* Miscellaneous Pharmacy Order) Zosyn per pharmacy ONCE XX ; Start 08/24/18 at 03:00 Acetaminophen/ Hydrocodone Bitart ([place] (5/325)) 1 tab Q6H PRN PO MODERATE PAIN LEVEL 4-6 Last administered on 08/27/18 06:18; Admin Dose 1 TAB; Start 08/24/18 at 03:00 Miscellaneous Information (Pending Santyl Order For Wound Care) This patient mora... PRN PRN XX WOUND CARE; Start 08/24/18 at 03:00 Collagenase (Santyl) 1 applic DAILY TOP Last administered on 09/03/18 08:12; Admin Dose 1 APPLIC; Start 08/24/18 at 09:00 Collagenase (Santyl) 1 applic DAILY PRN TOP PRN; Start 08/24/18 at 09:00 Insulin Aspart (Novolog Insulin Pen) NOVOLOG *MILD* ALGORITHM WITH MEALS BEDTIME SC Last administered on 09/05/18 17:06; Admin Dose 1 UNIT; Start 08/24/18 at 08:00 Sodium Hypochlorite (Dakins Diluted ()) 1 applic BID TP Last administered on 09/03/18 08:12; Admin Dose 1 APPLIC; Start 08/24/18 at 21:00 Diagnostic Test (Pha) (Accu-Chek) 1 ea 02 XX Last administered on 09/03/18 01:37; Admin Dose 1 EA; Start 08/26/18 at 02:00 Docusate Sodium (Colace) 100 mg BID PRN PO CONSTIPATION Last administered on 08/29/18 12:38; Admin Dose 100 MG; Start 08/28/18 at 09:00 Fluconazole (Diflucan) 100 mg DAILY PO Last administered on 09/05/18 08:25; Admin Dose 100 MG; Start 08/28/18 at 14:30 Polyethylene Glycol (Miralax) 17 gm DAILY PRN PO CONSTIPATION; Start 08/29/18 at 14:30 Amlodipine Besylate (Norvasc) 10 mg DAILY PO Last administered on 09/05/18 08:25; Admin Dose 10 MG; Start 08/31/18 at 09:00 Calcium Carbonate (Tums) 500 mg PC MEALS PO Last administered on 09/05/18 08:27; Admin Dose 500 MG; Start 08/30/18 at 13:00 Piperacillin Sod/ Tazobactam Sod 100 ml @ 200 mls/hr Q8 IVPB Last administered on 09/05/18 14:57; Admin Dose 200 MLS/HR; Start 08/30/18 at 22:00 Metoprolol Succinate (Toprol Xl) 12.5 mg DAILY PO Last administered on 09/05/18at 08:27; Admin Dose 12.5 MG; Start 09/01/18 at 14:00 Insulin Glargine (Lantus) 15 units DAILY@2000 SC Last administered on 09/04/18at 20:33; Admin Dose 15 UNITS; Start 09/04/18 at 20:00 Furosemide (Lasix) 20 mg BID DIURETICS PO Last administered on 09/05/18at 17:07; Admin Dose 20 MG; Start 09/05/18 at 18:00 MAIA CURRY NP September 05, 2018 18:08
[2018-09-05 20:00] VITALS: BP 144/87; PULSE 106; RESP 18
[2018-09-05] MEDS: INSULIN GLARGINE [LANTus] (100 UNITS/ML) SYG SC SCH (21:06)
[2018-09-06 02:00] VITALS: BP 137/87; PULSE 97; RESP 18
[2018-09-06] MEDS: ACCU-CHEK XX SCH (02:00)
[2018-09-06] MEDS: PIPER-TAZO 3.375 GM IV (PMX) 100 ML IVPB SCH ×3 (06:08→21:48)
[2018-09-06] MEDS: PANTOPRAZOLE (EC) 40 MG TAB PO SCH (06:09)
[2018-09-06] MEDS: FUROSEMIDE 20 MG TAB PO SCH ×2 (06:10→17:13)
[2018-09-06 07:49] VITALS: BP 138/87; PULSE 102; RESP 18
[2018-09-06] MEDS: INSULIN ASPART [NOVOLOG] 3 ML PEN SC SCH ×4 (08:00→20:36)
[2018-09-06] MEDS: PENTOXIFYLLINE (SR) 400 MG TAB PO SCH ×3 (08:35→20:36)
[2018-09-06] MEDS: METOPROLOL (XL) 25 MG TAB PO SCH (08:35)
[2018-09-06] MEDS: CALCIUM CARBONATE 500 MG CHEW TAB PO SCH ×3 (08:35→18:33)
[2018-09-06] MEDS: FLUCONAZOLE 100 MG TAB PO SCH (08:36)
[2018-09-06] MEDS: FERROUS SULFATE (EC) 325 MG TAB PO SCH (08:36)
[2018-09-06] MEDS: AMLODIPINE 10 MG TAB PO SCH (08:36)
[2018-09-06] MEDS: LINAGLIPTIN 5 MG TABLET PO SCH (08:37)
[2018-09-06] MEDS: COLLAGENASE 5 GM (UD JAR) TOP SCH (08:38)
[2018-09-06] MEDS: DAKINS 0.0125%(1/40) 473 ML SOLUTION TP SCH ×2 (08:39→21:00)
--- NOTE | 2018-09-06 09:46 | PN ---
Date/Time of Note Date/Time of Note DATE: 09/06/18 TIME: 09:45 Assessment/Plan VTE Prophylaxis Risk score (from [facility] [place])>0 risk: 4 SCD applied (from [facility] [place]): No SCD contraindicated: bilateral amputee Pharmacological prophylaxis: NA/contraindicated Pharm contraindication: bleeding Lines/Catheters IV C[facility]ter Type (from [facility]): PICC Line Central line still needed: Yes Urinary Cath still in place: No Assessment/Plan Hospital Course 1 septic shock secondary to right foot infection with possible soft tissue infection, necrotizing fasciitis (?). Now with gram-negative bacteremia + sp Rt BKA on 08/26/18 2. Diabetes mellitus type II, controlled. 3. Acute kidney injury on chronic kidney disease. 4. Hyponatremia, resolved. 5. Hypotension,resolved 6. Right BKA 7. Anemia, likely anemia of chronic disease, no blood loss no history of GI bleeding 8 Leukocytosis resolved 9 hypocalcemia Assessment/Plan - once Epogen -right stump CT scan -creatinine daily -keep open right BKA - cw PT -c/w iron supplement - pt will need SNF placement sp BKA for iv abx, wound care, spoke to CM working on it however pt has co pay. -pt can not be dc home - cw zosyn -cw lantus 15 and linagliptin -c/w bp meds - GI prophylaxis is Protonix -dvt PROPHYLAXIS , unable to tolerate, anemia. Result Diagram: 09/06/18 0428 09/06/188 Results 24hrs Laboratory Tests Test 09/05/18 11:51 09/05/18 17:04 09/05/18 21:03 09/06/18 04:28 Bedside Glucose 120 157 167 White Blood Count 10.2 Red Blood Count 2.51 L Hemoglobin 7.5 L Hematocrit 22.4 L Mean Corpuscular 89.2 Volume Mean Corpuscular 29.9 Hemoglobin Mean Corpuscular 33.5 Hemoglobin Concent Red Cell 14.1 Distribution Width Platelet Count 244 Mean Platelet Volume 9.0 Immature 0.500 H Granulocytes % Neutrophils % 80.3 H Lymphocytes % 13.2 L Monocytes % 4.7 Eosinophils % 1.1 Basophils % 0.2 Nucleated Red Blood 0.0 Cells % Immature 0.050 H Granulocytes # Neutrophils # 8.2 H Lymphocytes # 1.3 Monocytes # 0.5 Eosinophils # 0.1 Basophils # 0.0 Nucleated Red Blood 0.0 Cells # Sodium Level 139 Potassium Level 4.0 Chloride Level 108 Carbon Dioxide Level 25 Anion Gap 6 Blood Urea Nitrogen 22 H Creatinine 2.03 H Est Glomerular 35 L Filtrat Rate mL/min Glucose Level 90 Calcium Level 8.0 L Test 09/06/18 07:58 Bedside Glucose 91 Subjective 24 Hr Interval Summary Musculoskeletal: bone/joint pain (right stump) Exam/Review of Systems Exam Vitals Vital Signs Date Temp Pulse Resp B/P (MAP) Pulse Ox O2 O2 Flow FiO2 Time Delivery Rate 09/06/18 98.1 102 18 138/87 97 Room Air 07:49 (104) Intake and Output 09/05/18 09/05/18 09/06/18 1515:00 23:00 07:00 IntakeIntake Total 200 ml 590 ml OutputOutput Total 600 ml BalanceBalance -400 ml 590 ml Constitutional: alert, oriented Respiratory: clear to auscultation Cardiovascular: regular rate and rhythm Musculoskeletal: muscle weakness, swelling (right stump) Results Results 24hrs Laboratory Tests Test 09/05/18 11:51 09/05/18 17:04 09/05/18 21:03 09/06/18 04:28 Bedside Glucose 120 157 167 White Blood Count 10.2 Red Blood Count 2.51 L Hemoglobin 7.5 L Hematocrit 22.4 L Mean Corpuscular 89.2 Volume Mean Corpuscular 29.9 Hemoglobin Mean Corpuscular 33.5 Hemoglobin Concent Red Cell 14.1 Distribution Width Platelet Count 244 Mean Platelet Volume 9.0 Immature 0.500 H Granulocytes % Neutrophils % 80.3 H Lymphocytes % 13.2 L Monocytes % 4.7 Eosinophils % 1.1 Basophils % 0.2 Nucleated Red Blood 0.0 Cells % Immature 0.050 H Granulocytes # Neutrophils # 8.2 H Lymphocytes # 1.3 Monocytes # 0.5 Eosinophils # 0.1 Basophils # 0.0 Nucleated Red Blood 0.0 Cells # Sodium Level 139 Potassium Level 4.0 Chloride Level 108 Carbon Dioxide Level 25 Anion Gap 6 Blood Urea Nitrogen 22 H Creatinine 2.03 H Est Glomerular 35 L Filtrat Rate mL/min Glucose Level 90 Calcium Level 8.0 L Test 09/06/18 07:58 Bedside Glucose 91 Medications Medication Current Medications Ferrous Sulfate (Ferrous Sulfate (Ec)) 325 mg DAILY PO Last administered on 09/06/18at 08:36; Admin Dose 325 MG; Start 08/24/18 at 09:00 Linagliptin (Tradjenta) 5 mg DAILY PO Last administered on 09/06/18at 08:37; Admin Dose 5 MG; Start 08/24/18 at 09:00 Pentoxifylline (Trental) 400 mg TID PO Last administered on 09/06/18at 08:35; Admin Dose 400 MG; Start 08/24/18 at 09:00 Miscellaneous Information 1 ea NOTE XX ; Start 08/24/18 at 02:30 Glucose (Glutose) 15 gm Q15M PRN PO DECREASED GLUCOSE Last administered on 09/05/18at 07:57; Admin Dose 15 GM; Start 08/24/18 at 02:30 Glucose (Glutose) 22.5 gm Q15M PRN PO DECREASED GLUCOSE; Start 08/24/18 at 02:30 Dextrose (D50w Syringe) 25 ml Q15M PRN IV DECREASED GLUCOSE; Start 08/24/18 at 02:30 Dextrose (D50w Syringe) 50 ml Q15M PRN IV DECREASED GLUCOSE; Start 08/24/18 at 02:30 Glucagon (Glucagen) 1 mg Q15M PRN IM DECREASED GLUCOSE; Start 08/24/18 at 02:30 Glucose (Glutose) 15 gm Q15M PRN BUCCAL DECREASED GLUCOSE; Start 08/24/18 at 02:30 Pantoprazole (Protonix Tab) 40 mg DAILY@06 PO Last administered on 09/06/18at 06:09; Admin Dose 40 MG; Start 08/24/18 at 06:00 Acetaminophen (Tylenol Tab) 650 mg Q6H PRN PO MILD PAIN(1-3)OR ELEVATED TEMP Last administered on 08/31/18at 14:03; Admin Dose 650 MG; Start 08/24/18 at 03:00 Ondansetron HCl (Zofran Inj) 4 mg Q6H PRN IV NAUSEA AND/OR VOMITING Last administered on 08/25/18at 09:10; Admin Dose 4 MG; Start 08/24/18 at 03:00 Miscellaneous Information (* Miscellaneous Pharmacy Order) Zosyn per pharmacy ONCE XX ; Start 08/24/18 at 03:00 Acetaminophen/ Hydrocodone Bitart ([place] (5/325)) 1 tab Q6H PRN PO MODERATE PAIN LEVEL 4-6 Last administered on 08/27/18 06:18; Admin Dose 1 TAB; Start 08/24/18 at 03:00 Miscellaneous Information (Pending Santyl Order For Wound Care) This patient mora... PRN PRN XX WOUND CARE; Start 08/24/18 at 03:00 Collagenase (Santyl) 1 applic DAILY TOP Last administered on 09/06/18 08:38; Admin Dose 1 APPLIC; Start 08/24/18 at 09:00 Collagenase (Santyl) 1 applic DAILY PRN TOP PRN; Start 08/24/18 at 09:00 Insulin Aspart (Novolog Insulin Pen) NOVOLOG *MILD* ALGORITHM WITH MEALS BEDTIME SC Last administered on 09/05/18 17:06; Admin Dose 1 UNIT; Start 08/24/18 at 08:00 Sodium Hypochlorite (Dakins Diluted ()) 1 applic BID TP Last administered on 09/06/18 08:39; Admin Dose 1 APPLIC; Start 08/24/18 at 21:00 Diagnostic Test (Pha) (Accu-Chek) 1 ea 02 XX Last administered on 09/03/18 01:37; Admin Dose 1 EA; Start 08/26/18 at 02:00 Docusate Sodium (Colace) 100 mg BID PRN PO CONSTIPATION Last administered on 08/29/18 12:38; Admin Dose 100 MG; Start 08/28/18 at 09:00 Fluconazole (Diflucan) 100 mg DAILY PO Last administered on 09/06/18 08:36; Admin Dose 100 MG; Start 08/28/18 at 14:30 Polyethylene Glycol (Miralax) 17 gm DAILY PRN PO CONSTIPATION; Start 08/29/18 at 14:30 Amlodipine Besylate (Norvasc) 10 mg DAILY PO Last administered on 09/06/18 08:36; Admin Dose 10 MG; Start 08/31/18 at 09:00 Calcium Carbonate (Tums) 500 mg PC MEALS PO Last administered on 09/06/18 08:35; Admin Dose 500 MG; Start 08/30/18 at 13:00 Piperacillin Sod/ Tazobactam Sod 100 ml @ 200 mls/hr Q8 IVPB Last administered on 09/06/18 06:08; Admin Dose 200 MLS/HR; Start 08/30/18 at 22:00 Metoprolol Succinate (Toprol Xl) 12.5 mg DAILY PO Last administered on 09/06/18at 08:35; Admin Dose 12.5 MG; Start 09/01/18 at 14:00 Insulin Glargine (Lantus) 15 units DAILY@2000 SC Last administered on 09/05/18at 21:06; Admin Dose 15 UNITS; Start 09/04/18 at 20:00 Furosemide (Lasix) 20 mg BID DIURETICS PO Last administered on 09/06/18at 06:10; Admin Dose 20 MG; Start 09/05/18 at 18:00 TEODORO RIDER September 06, 2018 09:46
[2018-09-06 14:10] VITALS: BP 136/86; PULSE 103; RESP 16
--- NOTE | 2018-09-06 15:34 | CONS ---
Assessment/Plan Assessment/Plan Hospital Course (Demo Recall) ID PROGRESS NOTE CURRENT ABX: DAY #=> Zosyn +Diflucan 24H INTERVAL SUMMARY * Napping with the TV on -- clinically status quo -- VSS, no fevers, NAD, BLEXT feet DSG C/D/I IMAGING * 08/29/18 MRI FOOT: IMPRESSION: * 1. Status post amputation of the fifth ray to the level of the proximal diaphysis of the fifth metatarsal and status post third and fourth digits amputation at the level of the MTP joints. * 2. Mild reactive marrow edema at the amputation margin of the fifth m etatarsal without marrow infiltrative signal to suggest osteomyelitis at this time. * 3. Stress-related/reactive edema at the base of the second metatarsal noted again. Degenerative changes as above. * 4. Diffuse subcutaneous edema in the dorsum of the foot and remaining toes and diffuse muscle edema. MICRO/OTHER * 08/25/18 BCX (-0 * 08/25/18 WOUND CX: WOUND CULTURE Final Organism 1 CORYNEBACTERIUM SPECIES QUANTITY 3+ Organism 2 VANCO RESISTANT ENTEROCOCCUS QUANTITY SCANT GROWTH . MULTI DRUG RESISTANT ORGANISM Organism 3 COAGULASE NEGATIVE STAPH QUANTITY SCANT GROWTH Organism 4 MARCEL PARAPSILOSIS QUANTITY 1+ * 08/23/18 BCX (+) Organism 1 VANCO RESISTANT ENTEROCOCCUS . MULTI DRUG RESISTANT ORGANISM Organism 2 BACTEROIDES FRAGILIS PHYSICAL EXAMINATION: GENERAL: VSS, NAD HEENT: AT, NC, anicteric, NECK: Supple, CHEST: Equal chest rise bilaterally without dyspnea on observation HEART: Pulse RRR ABDOMEN: soft EXTREMITIES: Warm, dry SKIN: No rash, no diaphoresis ID ASSESSMENT 52 yo M admit with: 1. Severe sepsis, present on admission=> RESOLVED 2. Bilateral lower extremity's gangrene-> no evidence osteomyelitis post amputation 5th ray and toes 3. Peripheral arterial disease 4. Diabetes 5. Acute kidney injury 6. Anemia (-)MRSA Nares ABX ALLERGIES: KNDA INVASIVES: PIV CURRENT ABX: DAY # => Zosyn +Diflucan ID RECOMMENDATIONS/PLAN: 1. Continue current ABX over the weekend 2. 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 Consultation Date/Type/Reason Admit Date/Time Aug 23, 2018 at 21:27 Initial Consult Date 08/25/18 Date/Time of Note DATE: 09/06/18 TIME: 15:33 Exam/Review of Systems Exam Vitals Vital Signs Date Temp Pulse Resp B/P (MAP) Pulse Ox O2 O2 Flow FiO2 Time Delivery Rate 09/06/18 98.1 102 18 138/87 97 Room Air 07:49 (104) Intake and Output 09/05/18 09/05/18 09/06/18 1515:00 23:00 07:00 IntakeIntake Total 200 ml 590 ml OutputOutput Total 600 ml BalanceBalance -400 ml 590 ml Results Result Diagram: 09/06/18 0428 09/06/18 0428 Results 24hrs Laboratory Tests Test 09/05/18 17:04 09/05/18 21:03 09/06/18 04:28 09/06/18 07:58 Bedside Glucose 157 167 91 White Blood Count 10.2 Red Blood Count 2.51 L Hemoglobin 7.5 L Hematocrit 22.4 L Mean Corpuscular 89.2 Volume Mean Corpuscular 29.9 Hemoglobin Mean Corpuscular 33.5 Hemoglobin Concent Red Cell 14.1 Distribution Width Platelet Count 244 Mean Platelet Volume 9.0 Immature 0.500 H Granulocytes % Neutrophils % 80.3 H Lymphocytes % 13.2 L Monocytes % 4.7 Eosinophils % 1.1 Basophils % 0.2 Nucleated Red Blood 0.0 Cells % Immature 0.050 H Granulocytes # Neutrophils # 8.2 H Lymphocytes # 1.3 Monocytes # 0.5 Eosinophils # 0.1 Basophils # 0.0 Nucleated Red Blood 0.0 Cells # Sodium Level 139 Potassium Level 4.0 Chloride Level 108 Carbon Dioxide Level 25 Anion Gap 6 Blood Urea Nitrogen 22 H Creatinine 2.03 H Est Glomerular 35 L Filtrat Rate mL/min Glucose Level 90 Calcium Level 8.0 L Test 09/06/18 12:14 Bedside Glucose 140 Medications Medication Current Medications Ferrous Sulfate (Ferrous Sulfate (Ec)) 325 mg DAILY PO Last administered on 09/06/18at 08:36; Admin Dose 325 MG; Start 08/24/18 at 09:00 Linagliptin (Tradjenta) 5 mg DAILY PO Last administered on 09/06/18at 08:37; Admin Dose 5 MG; Start 08/24/18 at 09:00 Pentoxifylline (Trental) 400 mg TID PO Last administered on 09/06/18at 12:19; Admin Dose 400 MG; Start 08/24/18 at 09:00 Miscellaneous Information 1 ea NOTE XX ; Start 08/24/18 at 02:30 Glucose (Glutose) 15 gm Q15M PRN PO DECREASED GLUCOSE Last administered on 09/05/18at 07:57; Admin Dose 15 GM; Start 08/24/18 at 02:30 Glucose (Glutose) 22.5 gm Q15M PRN PO DECREASED GLUCOSE; Start 08/24/18 at 02:30 Dextrose (D50w Syringe) 25 ml Q15M PRN IV DECREASED GLUCOSE; Start 08/24/18 at 02:30 Dextrose (D50w Syringe) 50 ml Q15M PRN IV DECREASED GLUCOSE; Start 08/24/18 at 02:30 Glucagon (Glucagen) 1 mg Q15M PRN IM DECREASED GLUCOSE; Start 08/24/18 at 02:30 Glucose (Glutose) 15 gm Q15M PRN BUCCAL DECREASED GLUCOSE; Start 08/24/18 at 02:30 Pantoprazole (Protonix Tab) 40 mg DAILY@06 PO Last administered on 09/06/18at 06:09; Admin Dose 40 MG; Start 08/24/18 at 06:00 Acetaminophen (Tylenol Tab) 650 mg Q6H PRN PO MILD PAIN(1-3)OR ELEVATED TEMP Last administered on 08/31/18at 14:03; Admin Dose 650 MG; Start 08/24/18 at 03:00 Ondansetron HCl (Zofran Inj) 4 mg Q6H PRN IV NAUSEA AND/OR VOMITING Last admin istered on 08/25/18at 09:10; Admin Dose 4 MG; Start 08/24/18 at 03:00 Miscellaneous Information (* Miscellaneous Pharmacy Order) Zosyn per pharmacy ONCE XX ; Start 08/24/18 at 03:00 Acetaminophen/ Hydrocodone Bitart ([place] (5/325)) 1 tab Q6H PRN PO MODERATE PAIN LEVEL 4-6 Last administered on 08/27/18at 06:18; Admin Dose 1 TAB; Start 08/24/18 at 03:00 Miscellaneous Information (Pending Santyl Order For Wound Care) This patient mora... PRN PRN XX WOUND CARE; Start 08/24/18 at 03:00 Collagenase (Santyl) 1 applic DAILY TOP Last administered on 09/06/18 08:38; Admin Dose 1 APPLIC; Start 08/24/18 at 09:00 Collagenase (Santyl) 1 applic DAILY PRN TOP PRN; Start 08/24/18 at 09:00 Insulin Aspart (Novolog Insulin Pen) NOVOLOG *MILD* ALGORITHM WITH MEALS BEDTIME SC Last administered on 09/05/18 17:06; Admin Dose 1 UNIT; Start 08/24/18 at 08:00 Sodium Hypochlorite (Dakins Diluted ()) 1 applic BID TP Last administered on 09/06/18 08:39; Admin Dose 1 APPLIC; Start 08/24/18 at 21:00 Diagnostic Test (Pha) (Accu-Chek) 1 ea 02 XX Last administered on 09/03/18 01:37; Admin Dose 1 EA; Start 08/26/18 at 02:00 Docusate Sodium (Colace) 100 mg BID PRN PO CONSTIPATION Last administered on 08/29/18 12:38; Admin Dose 100 MG; Start 08/28/18 at 09:00 Fluconazole (Diflucan) 100 mg DAILY PO Last administered on 09/06/18 08:36; Admin Dose 100 MG; Start 08/28/18 at 14:30 Polyethylene Glycol (Miralax) 17 gm DAILY PRN PO CONSTIPATION; Start 08/29/18 at 14:30 Amlodipine Besylate (Norvasc) 10 mg DAILY PO Last administered on 09/06/18 08:36; Admin Dose 10 MG; Start 08/31/18 at 09:00 Calcium Carbonate (Tums) 500 mg PC MEALS PO Last administered on 09/06/18 12:19; Admin Dose 500 MG; Start 08/30/18 at 13:00 Piperacillin Sod/ Tazobactam Sod 100 ml @ 200 mls/hr Q8 IVPB Last administered on 09/06/18 13:19; Admin Dose 200 MLS/HR; Start 08/30/18 at 22:00 Metoprolol Succinate (Toprol Xl) 12.5 mg DAILY PO Last administered on 09/06/18 08:35; Admin Dose 12.5 MG; Start 5/7/19 at 14:00 Insulin Glargine (Lantus) 15 units DAILY@2000 SC Last administered on 09/05/18at 21:06; Admin Dose 15 UNITS; Start 09/04/18 at 20:00 Furosemide (Lasix) 20 mg BID DIURETICS PO Last administered on 09/06/18at 06:1 0; Admin Dose 20 MG; Start 09/05/18 at 18:00 MAIA CURRY NP September 06, 2018 15:34
[2018-09-06 20:00] VITALS: BP 152/95; PULSE 112; RESP 18
[2018-09-06] MEDS: INSULIN GLARGINE [LANTus] (100 UNITS/ML) SYG SC SCH (20:36)
[2018-09-07] MEDS: ACCU-CHEK XX SCH (01:56)
[2018-09-07 02:00] VITALS: BP 139/86; PULSE 109; RESP 18
[2018-09-07] MEDS: PANTOPRAZOLE (EC) 40 MG TAB PO SCH (05:35)
[2018-09-07] MEDS: PIPER-TAZO 3.375 GM IV (PMX) 100 ML IVPB SCH ×3 (05:35→22:12)
[2018-09-07] MEDS: FUROSEMIDE 20 MG TAB PO SCH (05:37)
[2018-09-07] MEDS: INSULIN ASPART [NOVOLOG] 3 ML PEN SC SCH ×4 (08:00→20:51)
[2018-09-07 08:07] VITALS: BP 136/79; PULSE 99; RESP 18
[2018-09-07] MEDS: PENTOXIFYLLINE (SR) 400 MG TAB PO SCH ×3 (08:46→20:51)
[2018-09-07] MEDS: AMLODIPINE 10 MG TAB PO SCH (08:46)
[2018-09-07] MEDS: FERROUS SULFATE (EC) 325 MG TAB PO SCH (08:46)
[2018-09-07] MEDS: FLUCONAZOLE 100 MG TAB PO SCH (08:46)
[2018-09-07] MEDS: LINAGLIPTIN 5 MG TABLET PO SCH (08:48)
[2018-09-07] MEDS: CALCIUM CARBONATE 500 MG CHEW TAB PO SCH ×3 (08:48→19:16)
[2018-09-07] MEDS: METOPROLOL (XL) 25 MG TAB PO SCH (08:49)
[2018-09-07] MEDS: COLLAGENASE 5 GM (UD JAR) TOP SCH (08:51)
[2018-09-07] MEDS: DAKINS 0.0125%(1/40) 473 ML SOLUTION TP SCH ×2 (08:51→21:00)
--- NOTE | 2018-09-07 14:24 | CONS ---
Assessment/Plan Assessment/Plan Hospital Course (Demo Recall) No events, looks comfortable, no fevers Microbiology: Blood culture on admission grew VRE susceptible to ampicillin and gram-negative rods, repeat blood cultures neg Indwelling's: Right upper extremity PICC line Antimicrobials: Zosyn Physical examination: This is a well-developed well-nourished middle-aged male who is in no distress. Head atraumatic normocephalic sclera nonicteric. Neck is supple. Chest rise symmetrical, breath sounds clear. Heart: S1-S2. Abdomen soft bowel sounds present. Extremities with bilateral lower extremity dressings present with purulent drainage and foul order also patient has gangrene all stools Assessment: 1. Severe sepsis, present on admission 2. Bilateral lower extremity's gangrene/osteomyelitis 3. Peripheral arterial disease 4. Diabetes 5. Acute kidney injury 6. Anemia Plan: Remains stable, right lower extremity stump with delio intact no drainage, CT results noted, patient is completed antibiotics today, consider vascular surgery reevaluation prior to discharge given CT findings Consultation Date/Type/Reason Admit Date/Time Aug 23, 2018 at 21:27 Initial Consult Date 08/25/18 Type of Consult id Date/Time of Note DATE: 09/07/18 TIME: 14:23 Exam/Review of Systems Exam Vitals Vital Signs Date Temp Pulse Resp B/P (MAP) Pulse Ox O2 O2 Flow FiO2 Time Delivery Rate 09/07/18 99.5 99 18 136/79 98 Room Air 08:07 (98) Intake and Output 09/06/18 09/06/18 09/07/18 1515:00 23:00 07:00 IntakeIntake Total 100 ml 100 ml 400 ml OutputOutput Total 400 ml 1400 ml BalanceBalance 100 ml -300 ml -1000 ml Results Result Diagram: 09/06/18 0428 09/06/18 0428 Results 24hrs Laboratory Tests Test 09/06/18 17:09 09/06/18 20:31 09/07/18 07:49 09/07/18 11:44 Bedside Glucose 167 156 93 94 Medications Medication Current Medications Ferrous Sulfate (Ferrous Sulfate (Ec)) 325 mg DAILY PO Last administered on 09/07/18at 08:46; Admin Dose 325 MG; Start 08/24/18 at 09:00 Linagliptin (Tradjenta) 5 mg DAILY PO Last administered on 09/07/18at 08:48; Admin Dose 5 MG; Start 08/24/18 at 09:00 Pentoxifylline (Trental) 400 mg TID PO Last administered on 09/07/18at 12:25; Admin Dose 400 MG; Start 08/24/18 at 09:00 Miscellaneous Information 1 ea NOTE XX ; Start 08/24/18 at 02:30 Glucose (Glutose) 15 gm Q15M PRN PO DECREASED GLUCOSE Last administered on 09/05/18at 07:57; Admin Dose 15 GM; Start 08/24/18 at 02:30 Glucose (Glutose) 22.5 gm Q15M PRN PO DECREASED GLUCOSE; Start 08/24/18 at 02:30 Dextrose (D50w Syringe) 25 ml Q15M PRN IV DECREASED GLUCOSE; Start 08/24/18 at 02:30 Dextrose (D50w Syringe) 50 ml Q15M PRN IV DECREASED GLUCOSE; Start 08/24/18 at 02:30 Glucagon (Glucagen) 1 mg Q15M PRN IM DECREASED GLUCOSE; Start 08/24/18 at 02:30 Glucose (Glutose) 15 gm Q15M PRN BUCCAL DECREASED GLUCOSE; Start 08/24/18 at 02:30 Pantoprazole (Protonix Tab) 40 mg DAILY@06 PO Last administered on 09/07/18at 05:35; Admin Dose 40 MG; Start 08/24/18 at 06:00 Acetaminophen (Tylenol Tab) 650 mg Q6H PRN PO MILD PAIN(1-3)OR ELEVATED TEMP Last administered on 08/31/18 14:03; Admin Dose 650 MG; Start 08/24/18 at 03:00 Ondansetron HCl (Zofran Inj) 4 mg Q6H PRN IV NAUSEA AND/OR VOMITING Last administered on 08/25/18 09:10; Admin Dose 4 MG; Start 08/24/18 at 03:00 Miscellaneous Information (* Miscellaneous Pharmacy Order) Zosyn per pharmacy ONCE XX ; Start 08/24/18 at 03:00 Acetaminophen/ Hydrocodone Bitart ([place] (5/325)) 1 tab Q6H PRN PO MODERATE PAIN LEVEL 4-6 Last administered on 08/27/18 06:18; Admin Dose 1 TAB; Start 08/24/18 at 03:00 Miscellaneous Information (Pending Santyl Order For Wound Care) This patient mora... PRN PRN XX WOUND CARE; Start 08/24/18 at 03:00 Collagenase (Santyl) 1 applic DAILY TOP Last administered on 09/07/18 08:51; Admin Dose 1 APPLIC; Start 08/24/18 at 09:00 Collagenase (Santyl) 1 applic DAILY PRN TOP PRN; Start 08/24/18 at 09:00 Insulin Aspart (Novolog Insulin Pen) NOVOLOG *MILD* ALGORITHM WITH MEALS BEDTIME SC Last administered on 09/06/18 17:53; Admin Dose 1 UNIT; Start 08/24/18 at 08:00 Sodium Hypochlorite (Dakins Diluted ()) 1 applic BID TP Last administered on 09/07/18 08:51; Admin Dose 1 APPLIC; Start 08/24/18 at 21:00 Diagnostic Test (Pha) (Accu-Chek) 1 ea 02 XX Last administered on 09/03/18 01:37; Admin Dose 1 EA; Start 08/26/18 at 02:00 Docusate Sodium (Colace) 100 mg BID PRN PO CONSTIPATION Last administered on 08/29/18 12:38; Admin Dose 100 MG; Start 08/28/18 at 09:00 Fluconazole (Diflucan) 100 mg DAILY PO Last administered on 09/07/18 08:46; Admin Dose 100 MG; Start 08/28/18 at 14:30 Polyethylene Glycol (Miralax) 17 gm DAILY PRN PO CONSTIPATION; Start 08/29/18 at 14:30 Amlodipine Besylate (Norvasc) 10 mg DAILY PO Last administered on 09/07/18 08:46; Admin Dose 10 MG; Start 08/31/18 at 09:00 Calcium Carbonate (Tums) 500 mg PC MEALS PO Last administered on 09/07/18 12:25; Admin Dose 500 MG; Start 08/30/18 at 13:00 Piperacillin Sod/ Tazobactam Sod 100 ml @ 200 mls/hr Q8 IVPB Last administered on 09/07/18 13:00; Admin Dose 200 MLS/HR; Start 08/30/18 at 22:00 Metoprolol Succinate (Toprol Xl) 12.5 mg DAILY PO Last administered on 5/13/19at 08:49; Admin Dose 12.5 MG; Start 09/01/18 at 14:00 Insulin Glargine (Lantus) 15 units DAILY@2000 SC Last administered on 09/06/18at 20:36; Admin Dose 15 UNITS; Start 09/04/18 at 20:00 Furosemide (Lasix) 20 mg BID DIURETICS PO Last administered on 09/07/18at 05:37; Admin Dose 20 MG; Start 09/05/18 at 18:00 ROXANNA SOMERS NP September 07, 2018 14:24
--- NOTE | 2018-09-07 15:00 | PN ---
Date/Time of Note Date/Time of Note DATE: 09/07/18 TIME: 15:00 Assessment/Plan VTE Prophylaxis Risk score (from Ns)>0 risk: 4 SCD applied (from Ns): No SCD contraindicated: low risk/ambulating Pharmacological prophylaxis: NA/contraindicated Pharm contraindication: low risk/ambulating Lines/Catheters IV C[facility]ter Type (from [facility] PICC Line Central line still needed: Yes Urinary Cath still in place: No Assessment/Plan Hospital Course 1 septic shock secondary to right foot infection with possible soft tissue infection, necrotizing fasciitis (?). Now with gram-negative bacteremia + sp Rt BKA on 08/26/18 2. Diabetes mellitus type II, controled. 3. Acute kidney injury on chronic kidney disease. 4. Hyponatremia, resolved. 5. Hypotension,resolved 6. Right BKA 7. Anemia, likely anemia of chronic disease, no blood loss no history of GI bleeding 8 Leukocytosis 9 hypocalcemia 10 Hypokalemia Assessment/Plan - cw epogen - cw PT -abx will be finished today - will ask dr perze to look at stump before dc as per ID -cw lantus 24 and linagliptin -c/w bp meds - gi prophylaxis is Protonix -dvt PROPHYLAXIS , unable to tolerate, anemia. Result Diagram: 09/06/18 0428 09/06/18 0428 Results 24hrs Laboratory Tests Test 09/06/18 17:09 09/06/18 20:31 09/07/18 07:49 09/07/18 11:44 Bedside Glucose 167 156 93 94 Subjective 24 Hr Interval Summary Free Text/Dictation CT scan noted Exam/Review of Systems Exam Vitals Vital Signs Date Temp Pulse Resp B/P (MAP) Pulse Ox O2 O2 Flow FiO2 Time Delivery Rate 09/07/18 99.5 99 18 136/79 98 Room Air 08:07 (98) Intake and Output 09/06/18 09/06/18 09/07/18 1515:00 23:00 07:00 IntakeIntake Total 100 ml 100 ml 400 ml OutputOutput Total 400 ml 1400 ml BalanceBalance 100 ml -300 ml -1000 ml Exam Constitutional: alert, oriented Cardiovascular: regular rate and rhythm Gastrointestinal: soft Musculoskeletal: muscle weakness, swelling (rBKA with clear sutures s/pamputation of 3,4 5 toes on left Results Results 24hrs Laboratory Tests Test 09/06/18 17:09 09/06/18 20:31 09/07/18 07:49 09/07/18 11:44 Bedside Glucose 167 156 93 94 Medications Medication Current Medications Ferrous Sulfate (Ferrous Sulfate (Ec)) 325 mg DAILY PO Last administered on 09/07/18 08:46; Admin Dose 325 MG; Start 08/24/18 at 09:00 Linagliptin (Tradjenta) 5 mg DAILY PO Last administered on 09/07/18 08:48; Admin Dose 5 MG; Start 08/24/18 at 09:00 Pentoxifylline (Trental) 400 mg TID PO Last administered on 09/07/18 12:25; Admin Dose 400 MG; Start 08/24/18 at 09:00 Miscellaneous Information 1 ea NOTE XX ; Start 08/24/18 at 02:30 Glucose (Glutose) 15 gm Q15M PRN PO DECREASED GLUCOSE Last administered on 09/05/18at 07:57; Admin Dose 15 GM; Start 08/24/18 at 02:30 Glucose (Glutose) 22.5 gm Q15M PRN PO DECREASED GLUCOSE; Start 08/24/18 at 02:30 Dextrose (D50w Syringe) 25 ml Q15M PRN IV DECREASED GLUCOSE; Start 08/24/18 at 02:30 Dextrose (D50w Syringe) 50 ml Q15M PRN IV DECREASED GLUCOSE; Start 08/24/18 at 02:30 Glucagon (Glucagen) 1 mg Q15M PRN IM DECREASED GLUCOSE; Start 08/24/18 at 02:30 Glucose (Glutose) 15 gm Q15M PRN BUCCAL DECREASED GLUCOSE; Start 08/24/18 at 02:30 Pantoprazole (Protonix Tab) 40 mg DAILY@06 PO Last administered on 09/07/18 05:35; Admin Dose 40 MG; Start 08/24/18 at 06:00 Acetaminophen (Tylenol Tab) 650 mg Q6H PRN PO MILD PAIN(1-3)OR ELEVATED TEMP Last administered on 08/31/18 14:03; Admin Dose 650 MG; Start 08/24/18 at 03:00 Ondansetron HCl (Zofran Inj) 4 mg Q6H PRN IV NAUSEA AND/OR VOMITING Last administered on 08/25/18 09:10; Admin Dose 4 MG; Start 08/24/18 at 03:00 Miscellaneous Information (* Miscellaneous Pharmacy Order) Zosyn per pharmacy ONCE XX ; Start 08/24/18 at 03:00; Stop 09/07/18 at 23:40 Acetaminophen/ Hydrocodone Bitart ([place] (5/325)) 1 tab Q6H PRN PO MODERATE PAIN LEVEL 4-6 Last administered on 08/27/18 06:18; Admin Dose 1 TAB; Start 08/24/18 at 03:00 Miscellaneous Information (Pending Santyl Order For Wound Care) This patient mora... PRN PRN XX WOUND CARE; Start 08/24/18 at 03:00 Collagenase (Santyl) 1 applic DAILY TOP Last administered on 09/07/18 08:51; Admin Dose 1 APPLIC; Start 08/24/18 at 09:00 Collagenase (Santyl) 1 applic DAILY PRN TOP PRN; Start 08/24/18 at 09:00 Insulin Aspart (Novolog Insulin Pen) NOVOLOG *MILD* ALGORITHM WITH MEALS BEDTIME SC Last administered on 09/06/18 17:53; Admin Dose 1 UNIT; Start 08/24/18 at 08:00 Sodium Hypochlorite (Dakins Diluted ()) 1 applic BID TP Last administered on 09/07/18 08:51; Admin Dose 1 APPLIC; Start 08/24/18 at 21:00 Diagnostic Test (Pha) (Accu-Chek) 1 ea 02 XX Last administered on 09/03/18 01:37; Admin Dose 1 EA; Start 08/26/18 at 02:00 Docusate Sodium (Colace) 100 mg BID PRN PO CONSTIPATION Last administered on 08/29/18 12:38; Admin Dose 100 MG; Start 08/28/18 at 09:00 Fluconazole (Diflucan) 100 mg DAILY PO Last administered on 09/07/18 08:46; Admin Dose 100 MG; Start 08/28/18 at 14:30 Polyethylene Glycol (Miralax) 17 gm DAILY PRN PO CONSTIPATION; Start 08/29/18 at 14:30 Amlodipine Besylate (Norvasc) 10 mg DAILY PO Last administered on 09/07/18 08:46; Admin Dose 10 MG; Start 08/31/18 at 09:00 Calcium Carbonate (Tums) 500 mg PC MEALS PO Last administered on 09/07/18 12:25; Admin Dose 500 MG; Start 08/30/18 at 13:00 Piperacillin Sod/ Tazobactam Sod 100 ml @ 200 mls/hr Q8 IVPB Last administered on 09/07/18at 13:00; Admin Dose 200 MLS/HR; Start 08/30/18 at 22:00; Stop 09/07/18 at 23:45 Metoprolol Succinate (Toprol Xl) 12.5 mg DAILY PO Last administered on 09/07/18at 08:49; Admin Dose 12.5 MG; Start 09/01/18 at 14:00 Insulin Glargine (Lantus) 15 units DAILY@2000 SC Last administered on 09/06/18at 20:36; Admin Dose 15 UNITS; Start 09/04/18 at 20:00 Furosemide (Lasix) 20 mg BID DIURETICS PO Last administered on 09/07/18at 05:37; Admin Dose 20 MG; Start 09/05/18 at 18:00 GINA SUTTON MD September 07, 2018 15:00
[2018-09-07 20:45] VITALS: BP 128/82; PULSE 96; RESP 19
[2018-09-07] MEDS: INSULIN GLARGINE [LANTus] (100 UNITS/ML) SYG SC SCH (20:52)
[2018-09-08] MEDS: ACCU-CHEK XX SCH (00:55)
[2018-09-08 02:00] VITALS: BP 133/84; PULSE 86; RESP 19
[2018-09-08] MEDS: PANTOPRAZOLE (EC) 40 MG TAB PO SCH (06:02)
[2018-09-08 07:25] VITALS: BP 133/83; PULSE 89; RESP 16
[2018-09-08] MEDS: INSULIN ASPART [NOVOLOG] 3 ML PEN SC SCH ×4 (08:00→21:00)
[2018-09-08] MEDS: CALCIUM CARBONATE 500 MG CHEW TAB PO SCH ×3 (08:37→20:00)
[2018-09-08] MEDS: PENTOXIFYLLINE (SR) 400 MG TAB PO SCH ×3 (08:37→20:40)
[2018-09-08] MEDS: LINAGLIPTIN 5 MG TABLET PO SCH (08:38)
[2018-09-08] MEDS: AMLODIPINE 10 MG TAB PO SCH (08:41)
[2018-09-08] MEDS: FLUCONAZOLE 100 MG TAB PO SCH (08:41)
[2018-09-08] MEDS: METOPROLOL (XL) 25 MG TAB PO SCH (08:42)
[2018-09-08] MEDS: FERROUS SULFATE (EC) 325 MG TAB PO SCH (08:42)
[2018-09-08] MEDS: COLLAGENASE 5 GM (UD JAR) TOP SCH (08:44)
[2018-09-08] MEDS: DAKINS 0.0125%(1/40) 473 ML SOLUTION TP SCH (08:44)
[2018-09-08 14:10] VITALS: BP 133/87; PULSE 99; RESP 16
--- NOTE | 2018-09-08 14:58 | CONS ---
Assessment/Plan Assessment/Plan Hospital Course (Demo Recall) No events, no fevers Microbiology: Blood culture on admission grew VRE susceptible to ampicillin and gram-negative rods, repeat blood cultures neg Indwelling's: Right upper extremity PICC line Antimicrobials: none Physical examination: This is a well-developed well-nourished middle-aged male who is in no distress. Head atraumatic normocephalic sclera nonicteric. Neck is supple. Chest rise symmetrical, breath sounds clear. Heart: S1-S2. Abdomen soft bowel sounds present. Extremities with bilateral lower extremity dressings present with purulent drainage and foul order also patient has gangrene all stools Assessment: 1. S/p severe sepsis, present on admission 2. Bilateral lower extremity's gangrene/osteomyelitis 3. Peripheral arterial disease 4. Diabetes 5. Acute kidney injury 6. Anemia Plan: Remains stable, completed abx, pending vascular surgery input re CT results Consultation Date/Type/Reason Admit Date/Time Aug 23, 2018 at 21:27 Initial Consult Date 08/25/18 Type of Consult id Date/Time of Note DATE: 09/08/18 TIME: 14:57 Exam/Review of Systems Exam Vitals Vital Signs Date Temp Pulse Resp B/P (MAP) Pulse Ox O2 O2 Flow FiO2 Time Delivery Rate 09/08/18 98.4 99 16 133/87 97 Room Air 14:10 (102) Intake and Output 09/07/18 09/07/18 09/08/18 1515:00 23:00 07:00 IntakeIntake Total 420 ml 300 ml OutputOutput Total 575 ml 400 ml BalanceBalance -155 ml -100 ml Results Result Diagram: 09/06/18 0428 09/08/18 0524 Results 24hrs Laboratory Tests Test 09/07/18 16:51 09/07/18 20:49 09/08/18 05:24 09/08/18 08:36 Bedside Glucose 99 117 72 Blood Urea Nitrogen 22 H Creatinine 1.87 H Test 09/08/18 12:31 Bedside Glucose 130 Medications Medication Current Medications Ferrous Sulfate (Ferrous Sulfate (Ec)) 325 mg DAILY PO Last administered on 09/08/18at 08:42; Admin Dose 325 MG; Start 08/24/18 at 09:00 Linagliptin (Tradjenta) 5 mg DAILY PO Last administered on 09/08/18at 08:38; Admin Dose 5 MG; Start 08/24/18 at 09:00 Pentoxifylline (Trental) 400 mg TID PO Last administered on 09/08/18at 13:12; Admin Dose 400 MG; Start 08/24/18 at 09:00 Miscellaneous Information 1 ea NOTE XX ; Start 08/24/18 at 02:30 Glucose (Glutose) 15 gm Q15M PRN PO DECREASED GLUCOSE Last administered on 09/05/18at 07:57; Admin Dose 15 GM; Start 08/24/18 at 02:30 Glucose (Glutose) 22.5 gm Q15M PRN PO DECREASED GLUCOSE; Start 08/24/18 at 02:30 Dextrose (D50w Syringe) 25 ml Q15M PRN IV DECREASED GLUCOSE; Start 08/24/18 at 02:30 Dextrose (D50w Syringe) 50 ml Q15M PRN IV DECREASED GLUCOSE; Start 08/24/18 at 02:30 Glucagon (Glucagen) 1 mg Q15M PRN IM DECREASED GLUCOSE; Start 08/24/18 at 02:30 Glucose (Glutose) 15 gm Q15M PRN BUCCAL DECREASED GLUCOSE; Start 08/24/18 at 02:30 Pantoprazole (Protonix Tab) 40 mg DAILY@06 PO Last administered on 09/08/18at 06:02; Admin Dose 40 MG; Start 08/24/18 at 06:00 Acetaminophen (Tylenol Tab) 650 mg Q6H PRN PO MILD PAIN(1-3)OR ELEVATED TEMP Last administered on 08/31/18at 14:03; Admin Dose 650 MG; Start 08/24/18 at 03:00 Ondansetron HCl (Zofran Inj) 4 mg Q6H PRN IV NAUSEA AND/OR VOMITING Last administered on 08/25/18 09:10; Admin Dose 4 MG; Start 08/24/18 at 03:00 Acetaminophen/ Hydrocodone Bitart ([place] (5/325)) 1 tab Q6H PRN PO MODERATE PAIN LEVEL 4-6 Last administered on 08/27/18at 06:18; Admin Dose 1 TAB; Start 08/24/18 at 03:00 Miscellaneous Information (Pending Santyl Order For Wound Care) This patient mora... PRN PRN XX WOUND CARE; Start 08/24/18 at 03:00 Collagenase (Santyl) 1 applic DAILY TOP Last administered on 09/07/18 08:51; Admin Dose 1 APPLIC; Start 08/24/18 at 09:00 Collagenase (Santyl) 1 applic DAILY PRN TOP PRN; Start 08/24/18 at 09:00 Insulin Aspart (Novolog Insulin Pen) NOVOLOG *MILD* ALGORITHM WITH MEALS BEDTIME SC Last administered on 09/06/18 17:53; Admin Dose 1 UNIT; Start 08/24/18 at 08:00 Sodium Hypochlorite (Dakins Diluted ()) 1 applic BID TP Last administered on 09/07/18 08:51; Admin Dose 1 APPLIC; Start 08/24/18 at 21:00 Diagnostic Test (Pha) (Accu-Chek) 1 ea 02 XX Last administered on 09/03/18 01:37; Admin Dose 1 EA; Start 08/26/18 at 02:00 Docusate Sodium (Colace) 100 mg BID PRN PO CONSTIPATION Last administered on 08/29/18 12:38; Admin Dose 100 MG; Start 08/28/18 at 09:00 Fluconazole (Diflucan) 100 mg DAILY PO Last administered on 09/08/18 08:41; Admin Dose 100 MG; Start 08/28/18 at 14:30 Polyethylene Glycol (Miralax) 17 gm DAILY PRN PO CONSTIPATION; Start 08/29/18 at 14:30 Amlodipine Besylate (Norvasc) 10 mg DAILY PO Last administered on 09/08/18 08:41; Admin Dose 10 MG; Start 08/31/18 at 09:00 Calcium Carbonate (Tums) 500 mg PC MEALS PO Last administered on 09/08/18 13:12; Admin Dose 500 MG; Start 08/30/18 at 13:00 Metoprolol Succinate (Toprol Xl) 12.5 mg DAILY PO Last administered on 09/08/18 08:42; Admin Dose 12.5 MG; Start 09/01/18 at 14:00 Insulin Glargine (Lantus) 15 units DAILY@2000 SC Last administered on 09/07/18 20:52; Admin Dose 15 UNITS; Start 09/04/18 at 20:00 ROXANNA SOMERS NP September 08, 2018 14:58
--- NOTE | 2018-09-08 16:27 | PN ---
Date/Time of Note Date/Time of Note DATE: 09/08/18 TIME: 16:25 Assessment/Plan VTE Prophylaxis Risk score (from Ns)>0 risk: 7 SCD applied (from [facility] No SCD contraindicated: low risk/ambulating Pharmacological prophylaxis: NA/contraindicated Pharm contraindication: low risk/ambulating Lines/Catheters IV Catheter Type (from [facility]): PICC Line Central line still needed: Yes Urinary Cath still in place: No Assessment/Plan Hospital Course 1 septic shock secondary to right foot infection with possible soft tissue infection, necrotizing fasciitis (?). Now with gram-negative bacteremia + sp Rt BKA on 08/26/18 2. Diabetes mellitus type II, controled. 3. Acute kidney injury on chronic kidney disease. 4. Hyponatremia, resolved. 5. Hypotension,resolved 6. Right BKA 7. Anemia, likely anemia of chronic disease, no blood loss no history of GI bleeding 8 Leukocytosis 9 hypocalcemia 10 Hypokalemia Assessment/Plan - cw epogen - will ask dr chou to look at stump before dc as per ID -decrease lantus -c/w bp meds - cw PT - gi prophylaxis is Protonix -dvt PROPHYLAXIS , unable to tolerate, anemia. DC planning once cleared bY id./Dr Chou and PT Result Diagram: 09/06/18 0428 09/08/18 0524 Results 24hrs Laboratory Tests Test 09/07/18 16:51 09/07/18 20:49 09/08/18 05:24 09/08/18 08:36 Bedside Glucose 99 117 72 Blood Urea Nitrogen 22 H Creatinine 1.87 H Test 09/08/18 12:31 Bedside Glucose 130 Subjective 24 Hr Interval Summary Free Text/Dictation NO complains Exam/Review of Systems Exam Vitals Vital Signs Date Temp Pulse Resp B/P (MAP) Pulse Ox O2 O2 Flow FiO2 Time Delivery Rate 09/08/18 98.4 99 16 133/87 97 Room Air 14:10 (102) Intake and Output 09/07/18 09/07/18 09/08/18 1515:00 23:00 07:00 IntakeIntake Total 420 ml 300 ml OutputOutput Total 575 ml 400 ml BalanceBalance -155 ml -100 ml Exam Constitutional: alert, oriented Cardiovascular: regular rate and rhythm Gastrointestinal: soft Musculoskeletal: muscle weakness, swelling (rBKA with clear sutures s/pamputation of 3,4 5 toes on left Results Results 24hrs Laboratory Tests Test 09/07/18 16:51 09/07/18 20:49 09/08/18 05:24 09/08/18 08:36 Bedside Glucose 99 117 72 Blood Urea Nitrogen 22 H Creatinine 1.87 H Test 09/08/18 12:31 Bedside Glucose 130 Medications Medication Current Medications Ferrous Sulfate (Ferrous Sulfate (Ec)) 325 mg DAILY PO Last administered on 09/08/18at 08:42; Admin Dose 325 MG; Start 08/24/18 at 09:00 Linagliptin (Tradjenta) 5 mg DAILY PO Last administered on 09/08/18 08:38; Admin Dose 5 MG; Start 08/24/18 at 09:00 Pentoxifylline (Trental) 400 mg TID PO Last administered on 09/08/18at 13:12; Admin Dose 400 MG; Start 08/24/18 at 09:00 Miscellaneous Information 1 ea NOTE XX ; Start 08/24/18 at 02:30 Glucose (Glutose) 15 gm Q15M PRN PO DECREASED GLUCOSE Last administered on 03/16at 07:57; Admin Dose 15 GM; Start 08/24/18 at 02:30 Glucose (Glutose) 22.5 gm Q15M PRN PO DECREASED GLUCOSE; Start 08/24/18 at 02:30 Dextrose (D50w Syringe) 25 ml Q15M PRN IV DECREASED GLUCOSE; Start 08/24/18 at 02:30 Dextrose (D50w Syringe) 50 ml Q15M PRN IV DECREASED GLUCOSE; Start 08/24/18 at 02:30 Glucagon (Glucagen) 1 mg Q15M PRN IM DECREASED GLUCOSE; Start 08/24/18 at 02:30 Glucose (Glutose) 15 gm Q15M PRN BUCCAL DECREASED GLUCOSE; Start 08/24/18 at 02:30 Pantoprazole (Protonix Tab) 40 mg DAILY@06 PO Last administered on 09/08/18at 06:02; Admin Dose 40 MG; Start 08/24/18 at 06:00 Acetaminophen (Tylenol Tab) 650 mg Q6H PRN PO MILD PAIN(1-3)OR ELEVATED TEMP Last administered on 08/31/18at 14:03; Admin Dose 650 MG; Start 08/24/18 at 03:00 Ondansetron HCl (Zofran Inj) 4 mg Q6H PRN IV NAUSEA AND/OR VOMITING Last administered on 08/25/18 09:10; Admin Dose 4 MG; Start 08/24/18 at 03:00 Acetaminophen/ Hydrocodone Bitart ([place] (5/325)) 1 tab Q6H PRN PO MODERATE PAIN LEVEL 4-6 Last administered on 08/27/18 06:18; Admin Dose 1 TAB; Start 08/24/18 at 03:00 Miscellaneous Information (Pending Santyl Order For Wound Care) This patient mora... PRN PRN XX WOUND CARE; Start 08/24/18 at 03:00 Collagenase (Santyl) 1 applic DAILY PRN TOP PRN; Start 08/24/18 at 09:00 Insulin Aspart (Novolog Insulin Pen) NOVOLOG *MILD* ALGORITHM WITH MEALS BEDTIME SC Last administered on 09/06/18 17:53; Admin Dose 1 UNIT; Start 08/24/18 at 08:00 Diagnostic Test (Pha) (Accu-Chek) 1 ea 02 XX Last administered on 09/03/18 01:37; Admin Dose 1 EA; Start 08/26/18 at 02:00 Docusate Sodium (Colace) 100 mg BID PRN PO CONSTIPATION Last administered on 08/29/18 12:38; Admin Dose 100 MG; Start 08/28/18 at 09:00 Fluconazole (Diflucan) 100 mg DAILY PO Last administered on 09/08/18 08:41; Admin Dose 100 MG; Start 08/28/18 at 14:30 Polyethylene Glycol (Miralax) 17 gm DAILY PRN PO CONSTIPATION; Start 08/29/18 at 14:30 Amlodipine Besylate (Norvasc) 10 mg DAILY PO Last administered on 09/08/18 08:41; Admin Dose 10 MG; Start 08/31/18 at 09:00 Calcium Carbonate (Tums) 500 mg PC MEALS PO Last administered on 09/08/18 13:12; Admin Dose 500 MG; Start 08/30/18 at 13:00 Metoprolol Succinate (Toprol Xl) 12.5 mg DAILY PO Last administered on 09/08/18 08:42; Admin Dose 12.5 MG; Start 09/01/18 at 14:00 Insulin Glargine (Lantus) 15 units DAILY@2000 SC Last administered on 09/07/18at 20:52; Admin Dose 15 UNITS; Start 09/04/18 at 20:00 GINA SUTTON MD September 08, 2018 16:27
[2018-09-08] MEDS: INSULIN GLARGINE [LANTus] (100 UNITS/ML) SYG SC SCH (20:01)
[2018-09-08 20:08] VITALS: BP 125/80; PULSE 104; RESP 18
[2018-09-09 02:00] VITALS: BP 137/79; PULSE 92; RESP 18
[2018-09-09] MEDS: ACCU-CHEK XX SCH (02:00)
[2018-09-09] MEDS: PANTOPRAZOLE (EC) 40 MG TAB PO SCH (05:56)
[2018-09-09] MEDS: LINAGLIPTIN 5 MG TABLET PO SCH (08:01)
[2018-09-09] MEDS: INSULIN ASPART [NOVOLOG] 3 ML PEN SC SCH ×4 (08:01→20:31)
[2018-09-09] MEDS ORDERED: SOD CHLORIDE 0.9% 250 ML IV* ONE (08:26)
[2018-09-09] MEDS: PENTOXIFYLLINE (SR) 400 MG TAB PO SCH ×3 (09:03→20:32)
[2018-09-09] MEDS: CALCIUM CARBONATE 500 MG CHEW TAB PO SCH ×3 (09:03→19:54)
[2018-09-09] MEDS: FLUCONAZOLE 100 MG TAB PO SCH (09:03)
[2018-09-09] MEDS: FERROUS SULFATE (EC) 325 MG TAB PO SCH (09:03)
[2018-09-09] MEDS: METOPROLOL (XL) 25 MG TAB PO SCH (09:03)
[2018-09-09] MEDS: AMLODIPINE 10 MG TAB PO SCH (09:04)
[2018-09-09 09:31] VITALS: BP 144/83; PULSE 89; RESP 19
--- NOTE | 2018-09-09 10:10 | PN ---
Date/Time of Note Date/Time of Note DATE: 09/09/18 TIME: 10:09 Assessment/Plan Lines/Catheters IV Catheter Type (from Nrsg): PICC Line [place] in Place (from Nrsg): No Assessment/Plan Assessment/Plan Status post right below-knee amputation Wound appears to be healing well [place] are intact No Clinical signs of abscess formation or fluid collection Would continue monitoring the wound Follow-up in my office after discharge Subjective 24 Hr Interval Summary Constitutional: improved Pain Control: mild Exam/Review of Systems Vital Signs Vitals Vital Signs Date Temp Pulse Resp B/P (MAP) Pulse Ox O2 O2 Flow FiO2 Time Delivery Rate 09/09/18 98.9 89 19 144/83 96 09:31 (103) 09/08/18 Room Air 14:10 Intake and Output 09/08/18 09/08/18 09/09/18 1515:00 23:00 07:00 IntakeIntake Total 890 ml 660 ml 200 ml OutputOutput Total 500 ml 650 ml 400 ml BalanceBalance 390 ml 10 ml -200 ml Exam ENMT: nl external ears & nose, nl lips & teeth, nl nasal mucosa & septum, mucosa pink and moist Neck: supple, non-tender Respiratory: clear to auscultation, normal air movement Cardiovascular: regular rate and rhythm, nl pulses Gastrointestinal: soft, nl liver, spleen, non-tender Additional Comments Right below-knee amputation site inspected [place] are intact No clinical signs of fluid collection or abscess formation No dehiscence Bony fragments that are palpable Results Result Diagram: 09/09/18 0528 09/09/18 0528 DONTRELL RODRIGUEZ MD September 09, 2018 10:10
--- NOTE | 2018-09-09 11:30 | CONS ---
Assessment/Plan Assessment/Plan Hospital Course (Demo Recall) No events over night Microbiology: Blood culture on admission grew VRE susceptible to ampicillin and gram-negative rods, repeat blood cultures neg Indwelling's: Right upper extremity PICC line Antimicrobials: none Physical examination: This is a well-developed well-nourished middle-aged male who is in no distress. Head atraumatic normocephalic sclera nonicteric. Neck is supple. Chest rise symmetrical, breath sounds clear. Heart: S1-S2. Abdomen soft bowel sounds present. Extremities with bilateral lower extremity dressings present with purulent drainage and foul order also patient has gangrene all stools Assessment: 1. S/p severe sepsis, present on admission 2. Bilateral lower extremity's gangrene/osteomyelitis 3. Peripheral arterial disease 4. Diabetes 5. Acute kidney injury 6. Anemia Plan: Remains stable, completed abx, vascular surgery rec-s noted, pending dc arrangements Consultation Date/Type/Reason Admit Date/Time Aug 23, 2018 at 21:27 Initial Consult Date 08/25/18 Type of Consult id Date/Time of Note DATE: 09/09/18 TIME: 11:29 Exam/Review of Systems Exam Vitals Vital Signs Date Temp Pulse Resp B/P (MAP) Pulse Ox O2 O2 Flow FiO2 Time Delivery Rate 09/09/18 98.9 89 19 144/83 96 09:31 (103) 09/08/18 Room Air 14:10 Intake and Output 09/08/18 09/08/18 09/09/18 1515:00 23:00 07:00 IntakeIntake Total 890 ml 660 ml 200 ml OutputOutput Total 500 ml 650 ml 400 ml BalanceBalance 390 ml 10 ml -200 ml Results Result Diagram: 09/09/18 0528 09/09/18 0528 Results 24hrs Laboratory Tests Test 09/08/18 12:31 09/08/18 17:29 09/08/18 19:59 09/08/18 21:21 Bedside Glucose 130 149 152 157 Test 09/09/18 05:28 09/09/18 07:59 White Blood Count 8.8 Red Blood Count 1.98 #L Hemoglobin 6.0 *L Hematocrit 17.5 #L Mean Corpuscular 88.4 Volume Mean Corpuscular 30.3 Hemoglobin Mean Corpuscular 34.3 Hemoglobin Concent Red Cell 14.2 Distribution Width Platelet Count 192 # Mean Platelet Volume 9.0 Immature 0.500 H Granulocytes % Neutrophils % 74.7 Lymphocytes % 17.6 Monocytes % 5.2 Eosinophils % 1.7 Basophils % 0.3 Nucleated Red Blood 0.0 Cells % Immature 0.040 H Granulocytes # Neutrophils # 6.6 Lymphocytes # 1.6 Monocytes # 0.5 Eosinophils # 0.2 Basophils # 0.0 Nucleated Red Blood 0.0 Cells # Sodium Level 138 Potassium Level 3.6 Chloride Level 104 Carbon Dioxide Level 27 Anion Gap 7 Blood Urea Nitrogen 25 H Creatinine 1.90 H Est Glomerular 37 L Filtrat Rate mL/min Glucose Level 144 Calcium Level 8.2 L Phosphorus Level 3.4 Magnesium Level 1.8 Bedside Glucose 201 Medications Medication Current Medications Ferrous Sulfate (Ferrous Sulfate (Ec)) 325 mg DAILY PO Last administered on 09/09/18at 09:03; Admin Dose 325 MG; Start 08/24/18 at 09:00 Linagliptin (Tradjenta) 5 mg DAILY PO Last administered on 09/09/18at 08:01; Admin Dose 5 MG; Start 08/24/18 at 09:00 Pentoxifylline (Trental) 400 mg TID PO Last administered on 09/09/18at 09:03; Admin Dose 400 MG; Start 08/24/18 at 09:00 Miscellaneous Information 1 ea NOTE XX ; Start 08/24/18 at 02:30 Glucose (Glutose) 15 gm Q15M PRN PO DECREASED GLUCOSE Last administered on 09/05/18at 07:57; Admin Dose 15 GM; Start 08/24/18 at 02:30 Glucose (Glutose) 22.5 gm Q15M PRN PO DECREASED GLUCOSE; Start 08/24/18 at 02:30 Dextrose (D50w Syringe) 25 ml Q15M PRN IV DECREASED GLUCOSE; Start 08/24/18 at 02:30 Dextrose (D50w Syringe) 50 ml Q15M PRN IV DECREASED GLUCOSE; Start 08/24/18 at 02:30 Glucagon (Glucagen) 1 mg Q15M PRN IM DECREASED GLUCOSE; Start 08/24/18 at 02:30 Glucose (Glutose) 15 gm Q15M PRN BUCCAL DECREASED GLUCOSE; Start 08/24/18 at 02:30 Pantoprazole (Protonix Tab) 40 mg DAILY@06 PO Last administered on 09/09/18 05:56; Admin Dose 40 MG; Start 08/24/18 at 06:00 Acetaminophen (Tylenol Tab) 650 mg Q6H PRN PO MILD PAIN(1-3)OR ELEVATED TEMP Last administered on 08/31/18 14:03; Admin Dose 650 MG; Start 08/24/18 at 03:00 Ondansetron HCl (Zofran Inj) 4 mg Q6H PRN IV NAUSEA AND/OR VOMITING Last administered on 08/25/18 09:10; Admin Dose 4 MG; Start 08/24/18 at 03:00 Acetaminophen/ Hydrocodone Bitart ([place] (5/325)) 1 tab Q6H PRN PO MODERATE PAIN LEVEL 4-6 Last administered on 08/27/18 06:18; Admin Dose 1 TAB; Start 08/24/18 at 03:00 Miscellaneous Information (Pending Santyl Order For Wound Care) This patient mora... PRN PRN XX WOUND CARE; Start 08/24/18 at 03:00 Collagenase (Santyl) 1 applic DAILY PRN TOP PRN; Start 08/24/18 at 09:00 Insulin Aspart (Novolog Insulin Pen) NOVOLOG *MILD* ALGORITHM WITH MEALS BEDTIME SC Last administered on 09/09/18 08:01; Admin Dose 2 UNIT; Start 08/24/18 at 08:00 Diagnostic Test (Pha) (Accu-Chek) 1 ea 02 XX Last administered on 09/03/18 01:37; Admin Dose 1 EA; Start 08/26/18 at 02:00 Docusate Sodium (Colace) 100 mg BID PRN PO CONSTIPATION Last administered on 08/29/18 12:38; Admin Dose 100 MG; Start 08/28/18 at 09:00 Fluconazole (Diflucan) 100 mg DAILY PO Last administered on 09/09/18 09:03; Admin Dose 100 MG; Start 08/28/18 at 14:30 Polyethylene Glycol (Miralax) 17 gm DAILY PRN PO CONSTIPATION; Start 08/29/18 at 14:30 Amlodipine Besylate (Norvasc) 10 mg DAILY PO Last administered on 09/09/18 09:04; Admin Dose 10 MG; Start 08/31/18 at 09:00 Calcium Carbonate (Tums) 500 mg PC MEALS PO Last administered on 09/09/18at 09:03; Admin Dose 500 MG; Start 08/30/18 at 13:00 Metoprolol Succinate (Toprol Xl) 12.5 mg DAILY PO Last administered on 09/09/18 09:03; Admin Dose 12.5 MG; Start 09/01/18 at 14:00 Insulin Glargine (Lantus) 10 units DAILY@2000 SC Last administered on 09/08/18at 20:01; Admin Dose 10 UNITS; Start 09/08/18 at 20:00 ROXANNA SOMERS NP September 09, 2018 11:30
[2018-09-09 14:22] VITALS: BP 143/87; PULSE 94; RESP 18
--- NOTE | 2018-09-09 14:41 | PN ---
Date/Time of Note Date/Time of Note DATE: 09/09/18 TIME: 14:39 Assessment/Plan VTE Prophylaxis Risk score (from [facility] [place]0 risk: 7 SCD applied (from [facility] [place]): No SCD contraindicated: low risk/ambulating Pharmacological prophylaxis: NA/contraindicated Pharm contraindication: low risk/ambulating Lines/Catheters IV Catheter Type (from [facility]): PICC Line Central line still needed: Yes Urinary Cath still in place: No Assessment/Plan Hospital Course 1 septic shock secondary to right foot infection with possible soft tissue infection, necrotizing fasciitis (?). Now with gram-negative bacteremia + sp Rt BKA on 08/26/18 2. Diabetes mellitus type II, controled. 3. Acute kidney injury on chronic kidney disease. 4. Hyponatremia, resolved. 5. Hypotension,resolved 6. Right BKA 7. Anemia, likely anemia of chronic disease, no blood loss no history of GI bleeding 8 Leukocytosis 9 hypocalcemia 10 Hypokalemia Assessment/Plan - cw epogen - per dr perez ok to dc - 1 unit prbc - iv fe - cw lantus -c/w bp meds - cw PT - gi prophylaxis is Protonix -dvt PROPHYLAXIS , unable to tolerate, anemia. Result Diagram: 09/09/1852709/09/18527 Results 24hrs Laboratory Tests Test 09/08/18 17:29 09/08/18 19:59 09/08/18 21:21 09/09/18 05:28 Bedside Glucose 149 152 157 White Blood Count 8.8 Red Blood Count 1.98 #L Hemoglobin 6.0 *L Hematocrit 17.5 #L Mean Corpuscular 88.4 Volume Mean Corpuscular 30.3 Hemoglobin Mean Corpuscular 34.3 Hemoglobin Concent Red Cell 14.2 Distribution Width Platelet Count 192 # Mean Platelet Volume 9.0 Immature 0.500 H Granulocytes % Neutrophils % 74.7 Lymphocytes % 17.6 Monocytes % 5.2 Eosinophils % 1.7 Basophils % 0.3 Nucleated Red Blood 0.0 Cells % Immature 0.040 H Granulocytes # Neutrophils # 6.6 Lymphocytes # 1.6 Monocytes # 0.5 Eosinophils # 0.2 Basophils # 0.0 Nucleated Red Blood 0.0 Cells # Sodium Level 138 Potassium Level 3.6 Chloride Level 104 Carbon Dioxide Level 27 Anion Gap 7 Blood Urea Nitrogen 25 H Creatinine 1.90 H Est Glomerular 37 L Filtrat Rate mL/min Glucose Level 144 Calcium Level 8.2 L Phosphorus Level 3.4 Magnesium Level 1.8 Test 09/09/18 07:59 09/09/18 12:01 Bedside Glucose 201 183 Subjective 24 Hr Interval Summary Free Text/Dictation hb 6.0 today, no bleeding noted Exam/Review of Systems Exam Vitals Vital Signs Date Temp Pulse Resp B/P (MAP) Pulse Ox O2 O2 Flow FiO2 Time Delivery Rate 09/09/18 98.7 94 18 143/87 95 14:22 (105) 09/08/18 Room Air 14:10 Intake and Output 09/08/18 09/08/18 09/09/18 1515:00 23:00 07:00 IntakeIntake Total 890 ml 660 ml 200 ml OutputOutput Total 500 ml 650 ml 400 ml BalanceBalance 390 ml 10 ml -200 ml Exam Constitutional: alert, oriented Cardiovascular: regular rate and rhythm Gastrointestinal: soft Musculoskeletal: muscle weakness, swelling (rBKA with clear sutures s/pamputation of 3,4 5 toes on left Results Results 24hrs Laboratory Tests Test 09/08/18 17:29 09/08/18 19:59 09/08/18 21:21 09/09/18 05:28 Bedside Glucose 149 152 157 White Blood Count 8.8 Red Blood Count 1.98 #L Hemoglobin 6.0 *L Hematocrit 17.5 #L Mean Corpuscular 88.4 Volume Mean Corpuscular 30.3 Hemoglobin Mean Corpuscular 34.3 Hemoglobin Concent Red Cell 14.2 Distribution Width Platelet Count 192 # Mean Platelet Volume 9.0 Immature 0.500 H Granulocytes % Neutrophils % 74.7 Lymphocytes % 17.6 Monocytes % 5.2 Eosinophils % 1.7 Basophils % 0.3 Nucleated Red Blood 0.0 Cells % Immature 0.040 H Granulocytes # Neutrophils # 6.6 Lymphocytes # 1.6 Monocytes # 0.5 Eosinophils # 0.2 Basophils # 0.0 Nucleated Red Blood 0.0 Cells # Sodium Level 138 Potassium Level 3.6 Chloride Level 104 Carbon Dioxide Level 27 Anion Gap 7 Blood Urea Nitrogen 25 H Creatinine 1.90 H Est Glomerular 37 L Filtrat Rate mL/min Glucose Level 144 Calcium Level 8.2 L Phosphorus Level 3.4 Magnesium Level 1.8 Test 09/09/18 07:59 09/09/18 12:01 Bedside Glucose 201 183 Medications Medication Current Medications Ferrous Sulfate (Ferrous Sulfate (Ec)) 325 mg DAILY PO Last administered on 09/09/18 09:03; Admin Dose 325 MG; Start 08/24/18 at 09:00 Linagliptin (Tradjenta) 5 mg DAILY PO Last administered on 09/09/18 08:01; Admin Dose 5 MG; Start 08/24/18 at 09:00 Pentoxifylline (Trental) 400 mg TID PO Last administered on 09/09/18 12:55; Admin Dose 400 MG; Start 08/24/18 at 09:00 Miscellaneous Information 1 ea NOTE XX ; Start 08/24/18 at 02:30 Glucose (Glutose) 15 gm Q15M PRN PO DECREASED GLUCOSE Last administered on 09/05/18 07:57; Admin Dose 15 GM; Start 08/24/18 at 02:30 Glucose (Glutose) 22.5 gm Q15M PRN PO DECREASED GLUCOSE; Start 08/24/18 at 02:30 Dextrose (D50w Syringe) 25 ml Q15M PRN IV DECREASED GLUCOSE; Start 08/24/18 at 02:30 Dextrose (D50w Syringe) 50 ml Q15M PRN IV DECREASED GLUCOSE; Start 08/24/18 at 02:30 Glucagon (Glucagen) 1 mg Q15M PRN IM DECREASED GLUCOSE; Start 08/24/18 at 02:30 Glucose (Glutose) 15 gm Q15M PRN BUCCAL DECREASED GLUCOSE; Start 08/24/18 at 02:30 Pantoprazole (Protonix Tab) 40 mg DAILY@06 PO Last administered on 09/09/18 05:56; Admin Dose 40 MG; Start 08/24/18 at 06:00 Acetaminophen (Tylenol Tab) 650 mg Q6H PRN PO MILD PAIN(1-3)OR ELEVATED TEMP Last administered on 08/31/18 14:03; Admin Dose 650 MG; Start 08/24/18 at 03:00 Ondansetron HCl (Zofran Inj) 4 mg Q6H PRN IV NAUSEA AND/OR VOMITING Last admi nistered on 08/25/18 09:10; Admin Dose 4 MG; Start 08/24/18 at 03:00 Acetaminophen/ Hydrocodone Bitart ([place] (5/325)) 1 tab Q6H PRN PO MODERATE PAIN LEVEL 4-6 Last administered on 08/27/18 06:18; Admin Dose 1 TAB; Start 08/24/18 at 03:00 Miscellaneous Information (Pending Santyl Order For Wound Care) This patient mora... PRN PRN XX WOUND CARE; Start 08/24/18 at 03:00 Collagenase (Santyl) 1 applic DAILY PRN TOP PRN; Start 08/24/18 at 09:00 Insulin Aspart (Novolog Insulin Pen) NOVOLOG *MILD* ALGORITHM WITH MEALS BEDTIME SC Last administered on 09/09/18 12:15; Admin Dose 2 UNIT; Start 08/24 at 08:00 Diagnostic Test (Pha) (Accu-Chek) 1 ea 02 XX Last administered on 09/03/18 01:37; Admin Dose 1 EA; Start 08/26/18 at 02:00 Docusate Sodium (Colace) 100 mg BID PRN PO CONSTIPATION Last administered on 08/29/18 12:38; Admin Dose 100 MG; Start 08/28/18 at 09:00 Fluconazole (Diflucan) 100 mg DAILY PO Last administered on 09/09/18 09:03; Admin Dose 100 MG; Start 08/28/18 at 14:30 Polyethylene Glycol (Miralax) 17 gm DAILY PRN PO CONSTIPATION; Start 08/29/18 at 14:30 Amlodipine Besylate (Norvasc) 10 mg DAILY PO Last administered on 09/09/18 09:04; Admin Dose 10 MG; Start 08/31/18 at 09:00 Calcium Carbonate (Tums) 500 mg PC MEALS PO Last administered on 09/09/18 12:56; Admin Dose 500 MG; Start 08/30/18 at 13:00 Metoprolol Succinate (Toprol Xl) 12.5 mg DAILY PO Last administered on 09/09/18 09:03; Admin Dose 12.5 MG; Start 09/01/18 at 14:00 Insulin Glargine (Lantus) 10 units DAILY@2000 SC Last administered on 09/08/18 20:01; Admin Dose 10 UNITS; Start 09/08/18 at 20:00 Ferric Sodium Gluconate Complex 125 mg/Sodium Chloride 110 ml @ 110 mls/hr DAILY@1300 IVPB ; Start 5/15/19 at 15:00; Stop 09/13/18 at 13:59 GINA SUTTON MD September 09, 2018 14:41
--- NOTE | 2018-09-09 15:33 | CONS ---
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 He has anemia of chronic disease due to recent sepsis and gangrene as well as CRI -check ferritin -replace with ferrlecit daily x 5 doses (ordered) -check stool heme occult, recommend colonoscopy as outpt when he is more stable -check SPEP/light chains/haptoglobin -he is a candidate for procrit given CRI . 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 He presented with foul smelling of the wounds on the right lower extremity, was also having fevers at home that made him come to the emergency department. He has had a complicated hospital course with septic shock due to right foot infection with possible soft tissue infection and gram-negative bacteremia + sp Rt BKA on 08/26/18. We are asked to see him for anemia. Today his hgb has dropped to 6 and he is receiving blood, his baseline hgb around 7 during this admission. His iron studies from August 31 are c/w with iron deficiency and anemia of chronic disease/chronic inflammation, serum iron 18, TIBC 150, iron sat 12%. No recent ferritin. GFR is 37. He has not had a colonoscopy Constitutional: no complaints, improved Eyes: no complaints ENT: no complaints Respiratory: no complaints Cardiovascular: no complaints Gastrointestinal: no complaints Genitourinary: no complaints Musculoskeletal: no complaints Skin: no complaints Neurologic: no complaints Endocrine: no complaints Past Medical History Home Meds Active Scripts Insulin Aspart* (Novolog Insulin Pen*) 100 Unit/Ml Soln, 0 UNIT SC AC MEALS AND BEDTIME for 30 Days Prov:TEODORO RIDER 07/19/18 Clonidine Hcl* (Catapres*) 0.2 Mg Tablet, 0.2 MG PO TID for 30 Days, TAB Prov:TEODORO RIDER 07/19/18 Amlodipine Besylate* (Amlodipine Besylate*) 5 Mg Tablet, 10 MG PO DAILY for 30 Days, TAB Prov:TEODORO RIDER 07/19/18 Pentoxifylline* (Pentoxifylline*) 400 Mg Tablet.sa, 400 MG PO TID for 30 Days Prov:TEODORO RIDER 07/19/18 Ferrous Sulfate* (Ferrous Sulfate*) 325 Mg Tabec, 325 MG PO DAILY for 30 Days, TAB Prov:TEODORO RIDER 07/19/18 Ciprofloxacin Hcl* (Ciprofloxacin Hcl*) 500 Mg Tablet, 500 MG PO BID@,18 for 42 Days, TAB Prov:TEODORO RIDER 07/19/18 Linagliptin (TRADJENTA) 5 Mg Tablet, 5 MG PO DAILY for 30 Days, TAB Prov:GINA SUTTON MD 03/18/18 Medications Current Medications Ferrous Sulfate (Ferrous Sulfate (Ec)) 325 mg DAILY PO Last administered on 09/09/18at 09:03; Admin Dose 325 MG; Start 08/24/18 at 09:00 Linagliptin (Tradjenta) 5 mg DAILY PO Last administered on 09/09/18at 08:01; Admin Dose 5 MG; Start 08/24/18 at 09:00 Pentoxifylline (Trental) 400 mg TID PO Last administered on 09/09/18at 12:55; Admin Dose 400 MG; Start 08/24/18 at 09:00 Miscellaneous Information 1 ea NOTE XX ; Start 08/24/18 at 02:30 Glucose (Glutose) 15 gm Q15M PRN PO DECREASED GLUCOSE Last administered on 09/05/18at 07:57; Admin Dose 15 GM; Start 08/24/18 at 02:30 Glucose (Glutose) 22.5 gm Q15M PRN PO DECREASED GLUCOSE; Start 08/24/18 at 02:30 Dextrose (D50w Syringe) 25 ml Q15M PRN IV DECREASED GLUCOSE; Start 08/24/18 at 02:30 Dextrose (D50w Syringe) 50 ml Q15M PRN IV DECREASED GLUCOSE; Start 08/24/18 at 02:30 Glucagon (Glucagen) 1 mg Q15M PRN IM DECREASED GLUCOSE; Start 08/24/18 at 02:30 Glucose (Glutose) 15 gm Q15M PRN BUCCAL DECREASED GLUCOSE; Start 08/24/18 at 02:30 Pantoprazole (Protonix Tab) 40 mg DAILY@06 PO Last administered on 09/09/18 05:56; Admin Dose 40 MG; Start 08/24/18 at 06:00 Acetaminophen (Tylenol Tab) 650 mg Q6H PRN PO MILD PAIN(1-3)OR ELEVATED TEMP Last administered on 08/31/18 14:03; Admin Dose 650 MG; Start 08/24/18 at 03:00 Ondansetron HCl (Zofran Inj) 4 mg Q6H PRN IV NAUSEA AND/OR VOMITING Last administered on 08/25/18 09:10; Admin Dose 4 MG; Start 08/24/18 at 03:00 Acetaminophen/ Hydrocodone Bitart ([place] (5/325)) 1 tab Q6H PRN PO MODERATE PAIN LEVEL 4-6 Last administered on 08/27/18 06:18; Admin Dose 1 TAB; Start 08/24/18 at 03:00 Miscellaneous Information (Pending Santyl Order For Wound Care) This patient mora... PRN PRN XX WOUND CARE; Start 08/24/18 at 03:00 Collagenase (Santyl) 1 applic DAILY PRN TOP PRN; Start 08/24/18 at 09:00 Insulin Aspart (Novolog Insulin Pen) NOVOLOG *MILD* ALGORITHM WITH MEALS BEDTIME SC Last administered on 09/09/18 12:15; Admin Dose 2 UNIT; Start 08/24/18 at 08:00 Diagnostic Test (Pha) (Accu-Chek) 1 ea 02 XX Last administered on 09/03/18 01:37; Admin Dose 1 EA; Start 08/26/18 at 02:00 Docusate Sodium (Colace) 100 mg BID PRN PO CONSTIPATION Last administered on 08/29/18 12:38; Admin Dose 100 MG; Start 08/28/18 at 09:00 Fluconazole (Diflucan) 100 mg DAILY PO Last administered on 09/09/18 09:03; Admin Dose 100 MG; Start 08/28/18 at 14:30 Polyethylene Glycol (Miralax) 17 gm DAILY PRN PO CONSTIPATION; Start 08/29/18 at 14:30 Amlodipine Besylate (Norvasc) 10 mg DAILY PO Last administered on 09/09/18 09:04; Admin Dose 10 MG; Start 08/31/18 at 09:00 Calcium Carbonate (Tums) 500 mg PC MEALS PO Last administered on 09/09/18at 12:56; Admin Dose 500 MG; Start 08/30/18 at 13:00 Metoprolol Succinate (Toprol Xl) 12.5 mg DAILY PO Last administered on 09/09/18at 09:03; Admin Dose 12.5 MG; Start 09/01/18 at 14:00 Insulin Glargine (Lantus) 10 units DAILY@2000 SC Last administered on 09/08/18at 20:01; Admin Dose 10 UNITS; Start 09/08/18 at 20:00 Ferric Sodium Gluconate Complex 125 mg/Sodium Chloride 110 ml @ 110 mls/hr DAILY@1300 IVPB ; Start 09/09/18 at 15:00; Stop 09/13/18 at 13:59 Allergies: Coded Allergies: No Known Allergy (Unverified , 07/04/18) Past Surgical History Past Surgical Hx: other Social History Smoking Status: Former smoker Exam/Review of Systems Exam Vitals Vital Signs Date Temp Pulse Resp B/P (MAP) Pulse Ox O2 O2 Flow FiO2 Time Delivery Rate 09/09/18 98.7 94 18 143/87 95 14:22 (105) 09/08/18 Room Air 14:10 Intake and Output 09/08/18 09/08/18 09/09/18 1515:00 23:00 07:00 IntakeIntake Total 890 ml 660 ml 200 ml OutputOutput Total 500 ml 650 ml 400 ml BalanceBalance 390 ml 10 ml -200 ml Constitutional: frail Head: normocephalic, atraumatic Musculoskeletal: nl extremities to inspection, nl gait and stance Skin: nl turgor; No rash or lesions Results Result Diagram: 09/09/18 0528 09/09/18 0528 Results 24hrs Laboratory Tests Test 09/08/18 17:29 09/08/18 19:59 09/08/18 21:21 09/09/18 05:28 Bedside Glucose 149 152 157 White Blood Count 8.8 Red Blood Count 1.98 #L Hemoglobin 6.0 *L Hematocrit 17.5 #L Mean Corpuscular 88.4 Volume Mean Corpuscular 30.3 Hemoglobin Mean Corpuscular 34.3 Hemoglobin Concent Red Cell 14.2 Distribution Width Platelet Count 192 # Mean Platelet Volume 9.0 Immature 0.500 H Granulocytes % Neutrophils % 74.7 Lymphocytes % 17.6 Monocytes % 5.2 Eosinophils % 1.7 Basophils % 0.3 Nucleated Red Blood 0.0 Cells % Immature 0.040 H Granulocytes # Neutrophils # 6.6 Lymphocytes # 1.6 Monocytes # 0.5 Eosinophils # 0.2 Basophils # 0.0 Nucleated Red Blood 0.0 Cells # Sodium Level 138 Potassium Level 3.6 Chloride Level 104 Carbon Dioxide Level 27 Anion Gap 7 Blood Urea Nitrogen 25 H Creatinine 1.90 H Est Glomerular 37 L Filtrat Rate mL/min Glucose Level 144 Calcium Level 8.2 L Phosphorus Level 3.4 Magnesium Level 1.8 Test 09/09/18 07:59 09/09/18 12:01 Bedside Glucose 201 183 Medications Medication Current Medications Ferrous Sulfate (Ferrous Sulfate (Ec)) 325 mg DAILY PO Last administered on 09/09/18at 09:03; Admin Dose 325 MG; Start 08/24/18 at 09:00 Linagliptin (Tradjenta) 5 mg DAILY PO Last administered on 09/09/18at 08:01; Admin Dose 5 MG; Start 08/24/18 at 09:00 Pentoxifylline (Trental) 400 mg TID PO Last administered on 09/09/18at 12:55; Admin Dose 400 MG; Start 08/24/18 at 09:00 Miscellaneous Information 1 ea NOTE XX ; Start 08/24/18 at 02:30 Glucose (Glutose) 15 gm Q15M PRN PO DECREASED GLUCOSE Last administered on 09/05/18at 07:57; Admin Dose 15 GM; Start 08/24/18 at 02:30 Glucose (Glutose) 22.5 gm Q15M PRN PO DECREASED GLUCOSE; Start 08/24/18 at 02:30 Dextrose (D50w Syringe) 25 ml Q15M PRN IV DECREASED GLUCOSE; Start 08/24/18 at 02:30 Dextrose (D50w Syringe) 50 ml Q15M PRN IV DECREASED GLUCOSE; Start 08/24/18 at 02:30 Glucagon (Glucagen) 1 mg Q15M PRN IM DECREASED GLUCOSE; Start 08/24/18 at 02:30 Glucose (Glutose) 15 gm Q15M PRN BUCCAL DECREASED GLUCOSE; Start 08/24/18 at 02:30 Pantoprazole (Protonix Tab) 40 mg DAILY@06 PO Last administered on 09/09/18 05:56; Admin Dose 40 MG; Start 08/24/18 at 06:00 Acetaminophen (Tylenol Tab) 650 mg Q6H PRN PO MILD PAIN(1-3)OR ELEVATED TEMP Last administered on 08/31/18 14:03; Admin Dose 650 MG; Start 08/24/18 at 03:00 Ondansetron HCl (Zofran Inj) 4 mg Q6H PRN IV NAUSEA AND/OR VOMITING Last administered on 08/25/18 09:10; Admin Dose 4 MG; Start 08/24/18 at 03:00 Acetaminophen/ Hydrocodone Bitart ([place] (5/325)) 1 tab Q6H PRN PO MODERATE PAIN LEVEL 4-6 Last administered on 08/27/18 06:18; Admin Dose 1 TAB; Start 08/24/18 at 03:00 Miscellaneous Information (Pending Santyl Order For Wound Care) This patient mora... PRN PRN XX WOUND CARE; Start 08/24/18 at 03:00 Collagenase (Santyl) 1 applic DAILY PRN TOP PRN; Start 08/24/18 at 09:00 Insulin Aspart (Novolog Insulin Pen) NOVOLOG *MILD* ALGORITHM WITH MEALS BED TIME SC Last administered on 09/09/18 12:15; Admin Dose 2 UNIT; Start 08/24/18 at 08:00 Diagnostic Test (Pha) (Accu-Chek) 1 ea 02 XX Last administered on 09/03/18 01:37; Admin Dose 1 EA; Start 08/26/18 at 02:00 Docusate Sodium (Colace) 100 mg BID PRN PO CONSTIPATION Last administered on 08/29/18 12:38; Admin Dose 100 MG; Start 08/28/18 at 09:00 Fluconazole (Diflucan) 100 mg DAILY PO Last administered on 09/09/18 09:03; Admin Dose 100 MG; Start 08/28/18 at 14:30 Polyethylene Glycol (Miralax) 17 gm DAILY PRN PO CONSTIPATION; Start 08/29/18 at 14:30 Amlodipine Besylate (Norvasc) 10 mg DAILY PO Last administered on 09/09/18 09:04; Admin Dose 10 MG; Start 08/31/18 at 09:00 Calcium Carbonate (Tums) 500 mg PC MEALS PO Last administered on 09/09/18at 12:56; Admin Dose 500 MG; Start 08/30/18 at 13:00 Metoprolol Succinate (Toprol Xl) 12.5 mg DAILY PO Last administered on 09/09/18at 09:03; Admin Dose 12.5 MG; Start 09/01/18 at 14:00 Insulin Glargine (Lantus) 10 units DAILY@2000 SC Last administered on 09/08/18at 20:01; Admin Dose 10 UNITS; Start 09/08/18 at 20:00 Ferric Sodium Gluconate Complex 125 mg/Sodium Chloride 110 ml @ 110 mls/hr DAILY@1300 IVPB ; Start 09/09/18 at 15:00; Stop 09/13/18 at 13:59 ROCÍO CRUZ September 09, 2018 15:33
[2018-09-09] MEDS: SOD FERRIC GLUC COMPLX 125 MG in SOD CHLORIDE 0.9% 100 ML IVPB SCH (15:36)
[2018-09-09] MEDS: EPOETIN ALFA-EPBX (NON-ESRD 10,000 UNIT/ML VIAL SC SCH (17:32)
[2018-09-09 20:05] VITALS: BP 140/84; PULSE 98; RESP 18
[2018-09-09] MEDS: INSULIN GLARGINE [LANTus] (100 UNITS/ML) SYG SC SCH (20:32)
[2018-09-10] MEDS: ACCU-CHEK XX SCH (01:55)
[2018-09-10 02:28] VITALS: BP 139/87; PULSE 93; RESP 18
[2018-09-10] MEDS: PANTOPRAZOLE (EC) 40 MG TAB PO SCH (05:34)
[2018-09-10 08:00] VITALS: BP 142/100; PULSE 98; RESP 20
[2018-09-10] MEDS: INSULIN ASPART [NOVOLOG] 3 ML PEN SC SCH ×4 (08:00→20:53)
[2018-09-10] MEDS: FLUCONAZOLE 100 MG TAB PO SCH (09:06)
[2018-09-10] MEDS: FERROUS SULFATE (EC) 325 MG TAB PO SCH (09:06)
[2018-09-10] MEDS: PENTOXIFYLLINE (SR) 400 MG TAB PO SCH ×3 (09:06→20:51)
[2018-09-10] MEDS: CALCIUM CARBONATE 500 MG CHEW TAB PO SCH ×3 (09:06→17:40)
[2018-09-10] MEDS: METOPROLOL (XL) 25 MG TAB PO SCH (09:07)
[2018-09-10] MEDS: LINAGLIPTIN 5 MG TABLET PO SCH (09:07)
[2018-09-10] MEDS: AMLODIPINE 10 MG TAB PO SCH (09:07)
[2018-09-10] MEDS: SOD FERRIC GLUC COMPLX 125 MG in SOD CHLORIDE 0.9% 100 ML IVPB SCH (13:07)
--- NOTE | 2018-09-10 13:20 | CONS ---
Assessment/Plan Assessment/Plan Hospital Course (Demo Recall) Alert feels good denies pain no nausea vomiting diarrhea no dysuria WBC today 7.2 platelets 210 Microbiology: Blood culture on admission grew VRE susceptible to ampicillin and gram-negative rods, repeat blood cultures neg Indwelling's: Right upper extremity PICC line Antimicrobials: none Physical examination: This is a well-developed well-nourished middle-aged male who is in no distress. Head atraumatic normocephalic sclera nonicteric. Neck is supple. Chest rise symmetrical, breath sounds clear. Heart: S1-S2. Abdomen soft bowel sounds present. Extremities with bilateral lower extremity dressings present with purulent drainage and foul order also patient has gangrene all stools Assessment: 1. S/p severe sepsis, present on admission 2. Bilateral lower extremity's gangrene/osteomyelitis 3. Peripheral arterial disease 4. Diabetes 5. Acute kidney injury 6. Anemia Plan: Remains stable, completed abx, vascular surgery rec-s noted, pending dc arrangements Consultation Date/Type/Reason Admit Date/Time Aug 23, 2018 at 21:27 Initial Consult Date 08/25/18 Type of Consult id Date/Time of Note DATE: 09/10/18 TIME: 13:20 Exam/Review of Systems Exam Vitals Vital Signs Date Temp Pulse Resp B/P (MAP) Pulse Ox O2 O2 Flow FiO2 Time Delivery Rate 09/10/18 98.6 98 20 142/100 96 08:00 (114) 09/08/18 Room Air 14:10 Intake and Output 09/09/18 09/09/18 09/10/18 1515:00 23:00 07:00 IntakeIntake Total 870 ml 940 ml 1940 ml OutputOutput Total 400 ml 200 ml 1225 ml BalanceBalance 470 ml 740 ml 715 ml Results Result Diagram: 09/10/18 0544 09/09/18 0528 Results 24hrs Laboratory Tests Test 09/09/18 15:30 09/09/18 17:30 09/09/18 20:28 09/10/18 01:57 Ferritin 912.0 H Bedside Glucose 153 214 157 Test 09/10/18 05:44 09/10/18 06:22 09/10/18 08:30 09/10/18 12:09 White Blood Count 7.2 Red Blood Count 2.54 #L Hemoglobin 7.7 #L Hematocrit 22.2 #L Mean Corpuscular 87.4 Volume Mean Corpuscular 30.3 Hemoglobin Mean Corpuscular 34.7 Hemoglobin Concen t Red Cell 14.1 Distribution Width Platelet Count 210 Mean Platelet 9.2 Volume Immature 0.600 H Granulocytes % Neutrophils % 70.9 Lymphocytes % 19.2 Monocytes % 6.0 Eosinophils % 2.7 Basophils % 0.6 Nucleated Red 0.0 Blood Cells % Immature 0.040 H Granulocytes # Neutrophils # 5.1 Lymphocytes # 1.4 Monocytes # 0.4 Eosinophils # 0.2 Basophils # 0.0 Nucleated Red 0.0 Blood Cells # Lab Scanned BLOOD TRANSFUSIO Report N Bedside Glucose 92 153 Medications Medication Current Medications Ferrous Sulfate (Ferrous Sulfate (Ec)) 325 mg DAILY PO Last administered on 09/10/18at 09:06; Admin Dose 325 MG; Start 08/24/18 at 09:00 Linagliptin (Tradjenta) 5 mg DAILY PO Last administered on 09/10/18at 09:07; Admin Dose 5 MG; Start 08/24/18 at 09:00 Pentoxifylline (Trental) 400 mg TID PO Last administered on 09/10/18at 13:07; Admin Dose 400 MG; Start 08/24/18 at 09:00 Miscellaneous Information 1 ea NOTE XX ; Start 08/24/18 at 02:30 Glucose (Glutose) 15 gm Q15M PRN PO DECREASED GLUCOSE Last administered on 09/05/18at 07:57; Admin Dose 15 GM; Start 08/24/18 at 02:30 Glucose (Glutose) 22.5 gm Q15M PRN PO DECREASED GLUCOSE; Start 08/24/18 at 02:30 Dextrose (D50w Syringe) 25 ml Q15M PRN IV DECREASED GLUCOSE; Start 08/24/18 at 02:30 Dextrose (D50w Syringe) 50 ml Q15M PRN IV DECREASED GLUCOSE; Start 08/24/18 at 02:30 Glucagon (Glucagen) 1 mg Q15M PRN IM DECREASED GLUCOSE; Start 08/24/18 at 02:30 Glucose (Glutose) 15 gm Q15M PRN BUCCAL DECREASED GLUCOSE; Start 08/24/18 at 02:30 Pantoprazole (Protonix Tab) 40 mg DAILY@06 PO Last administered on 09/10/18at 05:34; Admin Dose 40 MG; Start 08/24/18 at 06:00 Acetaminophen (Tylenol Tab) 650 mg Q6H PRN PO MILD PAIN(1-3)OR ELEVATED TEMP Last administered on 08/31/18 14:03; Admin Dose 650 MG; Start 08/24/18 at 03:00 Ondansetron HCl (Zofran Inj) 4 mg Q6H PRN IV NAUSEA AND/OR VOMITING Last administered on 08/25/18 09:10; Admin Dose 4 MG; Start 08/24/18 at 03:00 Acetaminophen/ Hydrocodone Bitart ([place] (5/325)) 1 tab Q6H PRN PO MODERATE PAIN LEVEL 4-6 Last administered on 08/27/18 06:18; Admin Dose 1 TAB; Start 08/24/18 at 03:00 Miscellaneous Information (Pending Santyl Order For Wound Care) This patient mora... PRN PRN XX WOUND CARE; Start 08/24/18 at 03:00 Collagenase (Santyl) 1 applic DAILY PRN TOP PRN; Start 08/24/18 at 09:00 Insulin Aspart (Novolog Insulin Pen) NOVOLOG *MILD* ALGORITHM WITH MEALS BEDTIME SC Last administered on 09/10/18 12:16; Admin Dose 1 UNIT; Start 08/24/18 at 08:00 Diagnostic Test (Pha) (Accu-Chek) 1 ea 02 XX Last administered on 09/10/18 01:55; Admin Dose 1 EA; Start 08/26/18 at 02:00 Docusate Sodium (Colace) 100 mg BID PRN PO CONSTIPATION Last administered on 08/29/18 12:38; Admin Dose 100 MG; Start 08/28/18 at 09:00 Fluconazole (Diflucan) 100 mg DAILY PO Last administered on 09/10/18 09:06; Admin Dose 100 MG; Start 08/28/18 at 14:30 Polyethylene Glycol (Miralax) 17 gm DAILY PRN PO CONSTIPATION; Start 08/29/18 at 14:30 Amlodipine Besylate (Norvasc) 10 mg DAILY PO Last administered on 09/10/18 09:07; Admin Dose 10 MG; Start 08/31/18 at 09:00 Calcium Carbonate (Tums) 500 mg PC MEALS PO Last administered on 5/16/19at 13:07; Admin Dose 500 MG; Start 08/30/18 at 13:00 Metoprolol Succinate (Toprol Xl) 12.5 mg DAILY PO Last administered on 09/10/18 09:07; Admin Dose 12.5 MG; Start 09/01/18 at 14:00 Insulin Glargine (Lantus) 10 units DAILY@2000 SC Last administered on 09/09/18 20:32; Admin Dose 10 UNITS; Start 09/08/18 at 20:00 Ferric Sodium Gluconate Complex 125 mg/Sodium Chloride 110 ml @ 110 mls/hr DAILY@1300 IVPB Last administered on 09/10/18 13:07; Admin Dose 110 MLS/HR; Start 09/09/18 at 15:00; Stop 09/13/18 at 13:59 Epoetin Chris-epbx (Retacrit (Non-Esrd)) 10,000 unit MoWeFr@1700 SC Last administered on 09/09/18at 17:32; Admin Dose 10,000 UNIT; Start 09/09/18 at 17:00 ROXANNA SOMERS NP September 10, 2018 13:20
--- NOTE | 2018-09-10 13:38 | CONS ---
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 He has anemia of chronic disease due to recent sepsis and gangrene as well as CRI -anemia in setting of elevated ESR and CRP supports ACD. -ferritin is greater than 900 -continue ferrlecit daily x 5 doses (ordered) -check stool heme occult, recommend colonoscopy as outpt when he is more stable -check SPEP/light chains pending -haptoglobin normal -he is a candidate for procrit given CRI. Cr 1.9 Consultation Date/Type/Reason Admit Date/Time Aug 23, 2018 at 21:27 Initial Consult Date 08/25/18 Type of Consult hematology Reason for Consultation anemia Requesting Provider: GINA SUTTON MD Date/Time of Note DATE: 09/10/18 TIME: 13:32 24 HR Interval Summary Free Text/Dictation HG improved after blood transfusion yesterday Exam/Review of Systems Exam Vitals Vital Signs Date Temp Pulse Resp B/P (MAP) Pulse Ox O2 O2 Flow FiO2 Time Delivery Rate 09/10/18 98.6 98 20 142/100 96 08:00 (114) 09/08/18 Room Air 14:10 Intake and Output 09/09/18 09/09/18 09/10/18 1414:59 22:59 06:59 IntakeIntake Total 840 ml 970 ml 1940 ml OutputOutput Total 400 ml 200 ml 1225 ml BalanceBalance 440 ml 770 ml 715 ml Constitutional: alert, oriented Psych: confusion, depression Head: normocephalic Eyes: nl conjunctiva ENMT: nl external ears & nose Neck: supple Respiratory: clear to auscultation Cardiovascular: regular rate and rhythm Gastrointestinal: soft Musculoskeletal: nl extremities to inspection Results Result Diagram: 09/10/18 0544 09/09/18 0528 Results 24hrs Laboratory Tests Test 09/09/18 15:30 09/09/18 17:30 09/09/18 20:28 09/10/18 01:57 Ferritin 912.0 H Bedside Glucose 153 214 157 Test 09/10/18 05:44 09/10/18 06:22 09/10/18 08:30 09/10/18 12:09 White Blood Count 7.2 Red Blood Count 2.54 #L Hemoglobin 7.7 #L Hematocrit 22.2 #L Mean Corpuscular 87.4 Volume Mean Corpuscular 30.3 Hemoglobin Mean Corpuscular 34.7 Hemoglobin Concen t Red Cell 14.1 Distribution Width Platelet Count 210 Mean Platelet 9.2 Volume Immature 0.600 H Granulocytes % Neutrophils % 70.9 Lymphocytes % 19.2 Monocytes % 6.0 Eosinophils % 2.7 Basophils % 0.6 Nucleated Red 0.0 Blood Cells % Immature 0.040 H Granulocytes # Neutrophils # 5.1 Lymphocytes # 1.4 Monocytes # 0.4 Eosinophils # 0.2 Basophils # 0.0 Nucleated Red 0.0 Blood Cells # Lab Scanned BLOOD TRANSFUSIO Report N Bedside Glucose 92 153 Medications Medication Current Medications Ferrous Sulfate (Ferrous Sulfate (Ec)) 325 mg DAILY PO Last administered on 09/10/18at 09:06; Admin Dose 325 MG; Start 08/24/18 at 09:00 Linagliptin (Tradjenta) 5 mg DAILY PO Last administered on 09/10/18at 09:07; Admin Dose 5 MG; Start 08/24/18 at 09:00 Pentoxifylline (Trental) 400 mg TID PO Last administered on 09/10/18at 13:07; Admin Dose 400 MG; Start 08/24/18 at 09:00 Miscellaneous Information 1 ea NOTE XX ; Start 08/24/18 at 02:30 Glucose (Glutose) 15 gm Q15M PRN PO DECREASED GLUCOSE Last administered on 09/05/18at 07:57; Admin Dose 15 GM; Start 08/24/18 at 02:30 Glucose (Glutose) 22.5 gm Q15M PRN PO DECREASED GLUCOSE; Start 08/24/18 at 02:30 Dextrose (D50w Syringe) 25 ml Q15M PRN IV DECREASED GLUCOSE; Start 08/24/18 at 02:30 Dextrose (D50w Syringe) 50 ml Q15M PRN IV DECREASED GLUCOSE; Start 08/24/18 at 02:30 Glucagon (Glucagen) 1 mg Q15M PRN IM DECREASED GLUCOSE; Start 08/24/18 at 02:30 Glucose (Glutose) 15 gm Q15M PRN BUCCAL DECREASED GLUCOSE; Start 08/24/18 at 02:30 Pantoprazole (Protonix Tab) 40 mg DAILY@06 PO Last administered on 09/10/18 05:34; Admin Dose 40 MG; Start 08/24/18 at 06:00 Acetaminophen (Tylenol Tab) 650 mg Q6H PRN PO MILD PAIN(1-3)OR ELEVATED TEMP Last administered on 08/31/18 14:03; Admin Dose 650 MG; Start 08/24/18 at 03:00 Ondansetron HCl (Zofran Inj) 4 mg Q6H PRN IV NAUSEA AND/OR VOMITING Last administered on 08/25/18 09:10; Admin Dose 4 MG; Start 08/24/18 at 03:00 Acetaminophen/ Hydrocodone Bitart ([place] (5/325)) 1 tab Q6H PRN PO MODERATE PAIN LEVEL 4-6 Last administered on 08/27/18 06:18; Admin Dose 1 TAB; Start 08/24/18 at 03:00 Miscellaneous Information (Pending Santyl Order For Wound Care) This patient mora... PRN PRN XX WOUND CARE; Start 08/24/18 at 03:00 Collagenase (Santyl) 1 applic DAILY PRN TOP PRN; Start 08/24/18 at 09:00 Insulin Aspart (Novolog Insulin Pen) NOVOLOG *MILD* ALGORITHM WITH MEALS BEDT KIKI SC Last administered on 09/10/18 12:16; Admin Dose 1 UNIT; Start 08/24/18 at 08:00 Diagnostic Test (Pha) (Accu-Chek) 1 ea 02 XX Last administered on 09/10/18 01:55; Admin Dose 1 EA; Start 08/26/18 at 02:00 Docusate Sodium (Colace) 100 mg BID PRN PO CONSTIPATION Last administered on 08/29/18 12:38; Admin Dose 100 MG; Start 08/28/18 at 09:00 Fluconazole (Diflucan) 100 mg DAILY PO Last administered on 09/10/18 09:06; Admin Dose 100 MG; Start 08/28/18 at 14:30 Polyethylene Glycol (Miralax) 17 gm DAILY PRN PO CONSTIPATION; Start 08/29/18 at 14:30 Amlodipine Besylate (Norvasc) 10 mg DAILY PO Last administered on 09/10/18 09:07; Admin Dose 10 MG; Start 08/31/18 at 09:00 Calcium Carbonate (Tums) 500 mg PC MEALS PO Last administered on 09/10/18 13:07; Admin Dose 500 MG; Start 08/30/18 at 13:00 Metoprolol Succinate (Toprol Xl) 12.5 mg DAILY PO Last administered on 09/10/18 09:07; Admin Dose 12.5 MG; Start 09/01/18 at 14:00 Insulin Glargine (Lantus) 10 units DAILY@2000 SC Last administered on 09/09/18 20:32; Admin Dose 10 UNITS; Start 09/08/18 at 20:00 Ferric Sodium Gluconate Complex 125 mg/Sodium Chloride 110 ml @ 110 mls/hr DAILY@1300 IVPB Last administered on 09/10/18 13:07; Admin Dose 110 MLS/HR; Start 09/09/18 at 15:00; Stop 09/13/18 at 13:59 Epoetin Chris-epbx (Retacrit (Non-Esrd)) 10,000 unit MoWeFr@1700 SC Last administered on 09/09/18at 17:32; Admin Dose 10,000 UNIT; Start 09/09/18 at 17:00 YI VILLA M.D. September 10, 2018 13:38
[2018-09-10 14:00] VITALS: BP 139/86; PULSE 94; RESP 18
--- NOTE | 2018-09-10 15:17 | PN ---
Date/Time of Note Date/Time of Note DATE: 09/10/18 TIME: 15:17 Assessment/Plan VTE Prophylaxis Risk score (from Ns)>0 risk: 6 SCD applied (from [facility] [place] SCD contraindicated: low risk/ambulating Pharmacological prophylaxis: NA/contraindicated Pharm contraindication: low risk/ambulating Lines/Catheters [facility] PICC Line Central line still needed: Yes Urinary Cath still in place: No Assessment/Plan Hospital Course 1 septic shock secondary to right foot infection with possible soft tissue infection, necrotizing fasciitis (?). Now with gram-negative bacteremia + sp Rt BKA on 08/26/18 2. Diabetes mellitus type II, controled. 3. Acute kidney injury on chronic kidney disease. 4. Hyponatremia, resolved. 5. Hypotension,resolved 6. Right BKA 7. Anemia, likely anemia of chronic disease, no blood loss no history of GI bleeding 8 Leukocytosis 9 hypocalcemia 10 Hypokalemia Assessment/Plan - cw epogen thousand units Friday -Globin improved - per dr perez ok to dc - iv fe to 5 days - cw lantus -c/w bp meds - cw PT - gi prophylaxis is Protonix -dvt PROPHYLAXIS , unable to tolerate, anemia. Talk with the family at bedside we will also do Epogen authorization architectural project manager to arrange for home health Result Diagram: 09/10/18 0544 09/09/18 0528 Results 24hrs Laboratory Tests Test 09/09/18 15:30 09/09/18 17:30 09/09/18 20:28 09/10/18 01:57 Ferritin 912.0 H Bedside Glucose 153 214 157 Test 09/10/18 05:44 09/10/18 06:22 09/10/18 08:30 09/10/18 12:09 White Blood Count 7.2 Red Blood Count 2.54 #L Hemoglobin 7.7 #L Hematocrit 22.2 #L Mean Corpuscular 87.4 Volume Mean Corpuscular 30.3 Hemoglobin Mean Corpuscular 34.7 Hemoglobin Concen t Red Cell 14.1 Distribution Width Platelet Count 210 Mean Platelet 9.2 Volume Immature 0.600 H Granulocytes % Neutrophils % 70.9 Lymphocytes % 19.2 Monocytes % 6.0 Eosinophils % 2.7 Basophils % 0.6 Nucleated Red 0.0 Blood Cells % Immature 0.040 H Granulocytes # Neutrophils # 5.1 Lymphocytes # 1.4 Monocytes # 0.4 Eosinophils # 0.2 Basophils # 0.0 Nucleated Red 0.0 Blood Cells # Lab Scanned BLOOD TRANSFUSIO Report N Bedside Glucose 92 153 Subjective 24 Hr Interval Summary Free Text/Dictation Hemoglobin is better today. Receiving IV iron Talk to the family at bedside Exam/Review of Systems Exam Vitals Vital Signs Date Temp Pulse Resp B/P (MAP) Pulse Ox O2 O2 Flow FiO2 Time Delivery Rate 09/10/18 98.6 98 20 142/100 96 08:00 (114) 09/08/18 Room Air 14:10 Intake and Output 09/09/18 09/09/18 09/10/18 1515:00 23:00 07:00 IntakeIntake Total 870 ml 940 ml 1940 ml OutputOutput Total 400 ml 200 ml 1225 ml BalanceBalance 470 ml 740 ml 715 ml Exam Constitutional: alert, oriented Cardiovascular: regular rate and rhythm Gastrointestinal: soft Musculoskeletal: muscle weakness, swelling (rBKA with clear sutures s/pamputation of 3,4 5 toes on left Results Results 24hrs Laboratory Tests Test 09/09/18 15:30 09/09/18 17:30 09/09/18 20:28 09/10/18 01:57 Ferritin 912.0 H Bedside Glucose 153 214 157 Test 09/10/18 05:44 09/10/18 06:22 09/10/18 08:30 09/10/18 12:09 White Blood Count 7.2 Red Blood Count 2.54 #L Hemoglobin 7.7 #L Hematocrit 22.2 #L Mean Corpuscular 87.4 Volume Mean Corpuscular 30.3 Hemoglobin Mean Corpuscular 34.7 Hemoglobin Concen t Red Cell 14.1 Distribution Width Platelet Count 210 Mean Platelet 9.2 Volume Immature 0.600 H Granulocytes % Neutrophils % 70.9 Lymphocytes % 19.2 Monocytes % 6.0 Eosinophils % 2.7 Basophils % 0.6 Nucleated Red 0.0 Blood Cells % Immature 0.040 H Granulocytes # Neutrophils # 5.1 Lymphocytes # 1.4 Monocytes # 0.4 Eosinophils # 0.2 Basophils # 0.0 Nucleated Red 0.0 Blood Cells # Lab Scanned BLOOD TRANSFUSIO Report N Bedside Glucose 92 153 Medications Medication Current Medications Ferrous Sulfate (Ferrous Sulfate (Ec)) 325 mg DAILY PO Last administered on 09/10/18 09:06; Admin Dose 325 MG; Start 08/24/18 at 09:00 Linagliptin (Tradjenta) 5 mg DAILY PO Last administered on 09/10/18 09:07; Admin Dose 5 MG; Start 08/24/18 at 09:00 Pentoxifylline (Trental) 400 mg TID PO Last administered on 09/10/18 13:07; Admin Dose 400 MG; Start 08/24/18 at 09:00 Miscellaneous Information 1 ea NOTE XX ; Start 08/24/18 at 02:30 Glucose (Glutose) 15 gm Q15M PRN PO DECREASED GLUCOSE Last administered on 09/05/18 07:57; Admin Dose 15 GM; Start 08/24/18 at 02:30 Glucose (Glutose) 22.5 gm Q15M PRN PO DECREASED GLUCOSE; Start 08/24/18 at 02:30 Dextrose (D50w Syringe) 25 ml Q15M PRN IV DECREASED GLUCOSE; Start 08/24/18 at 02:30 Dextrose (D50w Syringe) 50 ml Q15M PRN IV DECREASED GLUCOSE; Start 08/24/18 at 02:30 Glucagon (Glucagen) 1 mg Q15M PRN IM DECREASED GLUCOSE; Start 08/24/18 at 02:30 Glucose (Glutose) 15 gm Q15M PRN BUCCAL DECREASED GLUCOSE; Start 08/24/18 at 02:30 Pantoprazole (Protonix Tab) 40 mg DAILY@06 PO Last administered on 09/10/18 05:34; Admin Dose 40 MG; Start 08/24/18 at 06:00 Acetaminophen (Tylenol Tab) 650 mg Q6H PRN PO MILD PAIN(1-3)OR ELEVATED TEMP Last administered on 08/31/18 14:03; Admin Dose 650 MG; Start 08/24/18 at 03:00 Ondansetron HCl (Zofran Inj) 4 mg Q6H PRN IV NAUSEA AND/OR VOMITING Last administered on 08/25/18 09:10; Admin Dose 4 MG; Start 08/24/18 at 03:00 Acetaminophen/ Hydrocodone Bitart ([place] (5/325)) 1 tab Q6H PRN PO MODERATE PAIN LEVEL 4-6 Last administered on 08/27/18 06:18; Admin Dose 1 TAB; Start 08/24/18 at 03:00 Miscellaneous Information (Pending Santyl Order For Wound Care) This patient mora... PRN PRN XX WOUND CARE; Start 08/24/18 at 03:00 Collagenase (Santyl) 1 applic DAILY PRN TOP PRN; Start 08/24/18 at 09:00 Insulin Aspart (Novolog Insulin Pen) NOVOLOG *MILD* ALGORITHM WITH MEALS BEDTIME SC Last administered on 09/10/18 12:16; Admin Dose 1 UNIT; Start 08/24/18 at 08:00 Diagnostic Test (Pha) (Accu-Chek) 1 ea 02 XX Last administered on 09/10/18 01:55; Admin Dose 1 EA; Start 08/26/18 at 02:00 Docusate Sodium (Colace) 100 mg BID PRN PO CONSTIPATION Last administered on 08/29/18 12:38; Admin Dose 100 MG; Start 08/28/18 at 09:00 Fluconazole (Diflucan) 100 mg DAILY PO Last administered on 09/10/18 09:06; Admin Dose 100 MG; Start 08/28/18 at 14:30 Polyethylene Glycol (Miralax) 17 gm DAILY PRN PO CONSTIPATION; Start 08/29/18 at 14:30 Amlodipine Besylate (Norvasc) 10 mg DAILY PO Last administered on 09/10/18 09:07; Admin Dose 10 MG; Start 08/31/18 at 09:00 Calcium Carbonate (Tums) 500 mg PC MEALS PO Last administered on 09/10/18 13:07; Admin Dose 500 MG; Start 08/30/18 at 13:00 Metoprolol Succinate (Toprol Xl) 12.5 mg DAILY PO Last administered on 09/10/18 09:07; Admin Dose 12.5 MG; Start 09/01/18 at 14:00 Insulin Glargine (Lantus) 10 units DAILY@2000 SC Last administered on 09/09/18 20:32; Admin Dose 10 UNITS; Start 09/08/18 at 20:00 Ferric Sodium Gluconate Complex 125 mg/Sodium Chloride 110 ml @ 110 mls/hr DAILY@1300 IVPB Last administered on 09/10/18 13:07; Admin Dose 110 MLS/HR; Start 09/09/18 at 15:00; Stop 09/13/18 at 13:59 Epoetin Chris-epbx (Retacrit (Non-Esrd)) 10,000 unit MoWeFr@1700 SC Last administered on 09/09/18at 17:32; Admin Dose 10,000 UNIT; Start 09/09/18 at 17:00 GINA SUTTON MD September 10, 2018 15:17
[2018-09-10 20:05] VITALS: BP 134/85; PULSE 103; RESP 19
[2018-09-10] MEDS: INSULIN GLARGINE [LANTus] (100 UNITS/ML) SYG SC SCH (20:52)
[2018-09-11] MEDS: ACCU-CHEK XX SCH (02:13)
[2018-09-11 02:27] VITALS: BP 144/85; PULSE 94; RESP 18
[2018-09-11] MEDS: PANTOPRAZOLE (EC) 40 MG TAB PO SCH (05:30)
[2018-09-11 08:00] VITALS: BP 146/90; PULSE 94; RESP 18
[2018-09-11] MEDS: INSULIN ASPART [NOVOLOG] 3 ML PEN SC SCH ×4 (08:00→21:00)
[2018-09-11] MEDS: METOPROLOL (XL) 25 MG TAB PO SCH (08:08)
[2018-09-11] MEDS: FLUCONAZOLE 100 MG TAB PO SCH (08:09)
[2018-09-11] MEDS: PENTOXIFYLLINE (SR) 400 MG TAB PO SCH ×3 (08:09→21:07)
[2018-09-11] MEDS: LINAGLIPTIN 5 MG TABLET PO SCH (08:09)
[2018-09-11] MEDS: FERROUS SULFATE (EC) 325 MG TAB PO SCH (08:09)
[2018-09-11] MEDS: CALCIUM CARBONATE 500 MG CHEW TAB PO SCH ×3 (08:09→17:25)
[2018-09-11] MEDS: AMLODIPINE 10 MG TAB PO SCH (08:10)
[2018-09-11] MEDS: SOD FERRIC GLUC COMPLX 125 MG in SOD CHLORIDE 0.9% 100 ML IVPB SCH (12:06)
--- NOTE | 2018-09-11 13:03 | CONS ---
Assessment/Plan Assessment/Plan Hospital Course (Demo Recall) Alert feels good Microbiology: Blood culture on admission grew VRE susceptible to ampicillin and gram-negative rods, repeat blood cultures neg Indwelling's: Right upper extremity PICC line Antimicrobials: none Physical examination: This is a well-developed well-nourished middle-aged Hisp anic male who is in no distress. Head atraumatic normocephalic sclera nonicteric. Neck is supple. Chest rise symmetrical, breath sounds clear. Heart: S1-S2. Abdomen soft bowel sounds present. Extremities with bilateral lower extremity dressings present with purulent drainage and foul order also patient has gangrene all stools Assessment: 1. S/p severe sepsis, present on admission 2. Bilateral lower extremity's gangrene/osteomyelitis 3. Peripheral arterial disease 4. Diabetes 5. Acute kidney injury 6. Anemia Plan: Remains stable, pending dc arrangements Consultation Date/Type/Reason Admit Date/Time Aug 23, 2018 at 21:27 Initial Consult Date 08/25/18 Type of Consult id Requesting Provider: GINA SUTTON MD Date/Time of Note DATE: 09/11/18 TIME: 13:03 Exam/Review of Systems Exam Vitals Vital Signs Date Temp Pulse Resp B/P (MAP) Pulse Ox O2 O2 Flow FiO2 Time Delivery Rate 09/11/18 98.9 94 18 146/90 97 Room Air 08:00 (108) Intake and Output 09/10/18 09/10/18 09/11/18 1414:59 22:59 06:59 IntakeIntake Total 1060 ml 730 ml 720 ml OutputOutput Total 300 ml 400 ml BalanceBalance 760 ml 730 ml 320 ml Results Result Diagram: 09/11/18 0421 09/09/18 0528 Results 24hrs Laboratory Tests Test 09/10/18 17:36 09/10/18 20:50 09/11/18 01:48 09/11/18 04:21 Bedside Glucose 162 199 146 White Blood Count 6.9 Red Blood Count 2.48 L Hemoglobin 7.5 L Hematocrit 22.1 L Mean Corpuscular 89.1 Volume Mean Corpuscular 30.2 Hemoglobin Mean Corpuscular 33.9 Hemoglobin Concent Red Cell 14.1 Distribution Width Platelet Count 204 Mean Platelet Volume 9.3 Immature 0.400 Granulocytes % Neutrophils % 69.1 Lymphocytes % 20.7 Monocytes % 6.0 Eosinophils % 3.2 Basophils % 0.6 Nucleated Red Blood 0.0 Cells % Immature 0.030 Granulocytes # Neutrophils # 4.7 Lymphocytes # 1.4 Monocytes # 0.4 Eosinophils # 0.2 Basophils # 0.0 Nucleated Red Blood 0.0 Cells # Test 09/11/18 08:07 09/11/18 12:05 Bedside Glucose 107 165 Medications Medication Current Medications Ferrous Sulfate (Ferrous Sulfate (Ec)) 325 mg DAILY PO Last administered on 09/11/18at 08:09; Admin Dose 325 MG; Start 08/24/18 at 09:00 Linagliptin (Tradjenta) 5 mg DAILY PO Last administered on 09/11/18 08:09; Admin Dose 5 MG; Start 08/24/18 at 09:00 Pentoxifylline (Trental) 400 mg TID PO Last administered on 09/11/18 12:06; Admin Dose 400 MG; Start 08/24/18 at 09:00 Miscellaneous Information 1 ea NOTE XX ; Start 08/24/18 at 02:30 Glucose (Glutose) 15 gm Q15M PRN PO DECREASED GLUCOSE Last administered on at 07:57; Admin Dose 15 GM; Start 08/24/18 at 02:30 Glucose (Glutose) 22.5 gm Q15M PRN PO DECREASED GLUCOSE; Start 08/24/18 at 02:30 Dextrose (D50w Syringe) 25 ml Q15M PRN IV DECREASED GLUCOSE; Start 08/24/18 at 02:30 Dextrose (D50w Syringe) 50 ml Q15M PRN IV DECREASED GLUCOSE; Start 08/24/18 at 02:30 Glucagon (Glucagen) 1 mg Q15M PRN IM DECREASED GLUCOSE; Start 08/24/18 at 02:30 Glucose (Glutose) 15 gm Q15M PRN BUCCAL DECREASED GLUCOSE; Start 08/24/18 at 02:30 Pantoprazole (Protonix Tab) 40 mg DAILY@06 PO Last administered on 09/11/18at 05:30; Admin Dose 40 MG; Start 08/24/18 at 06:00 Acetaminophen (Tylenol Tab) 650 mg Q6H PRN PO MILD PAIN(1-3)OR ELEVATED TEMP Last administered on 08/31/18at 14:03; Admin Dose 650 MG; Start 08/24/18 at 03:00 Ondansetron HCl (Zofran Inj) 4 mg Q6H PRN IV NAUSEA AND/OR VOMITING Last administered on 08/25/18 09:10; Admin Dose 4 MG; Start 08/24/18 at 03:00 Acetaminophen/ Hydrocodone Bitart ([place] (5/325)) 1 tab Q6H PRN PO MODERATE PAIN LEVEL 4-6 Last administered on 08/27/18 06:18; Admin Dose 1 TAB; Start 08/24/18 at 03:00 Miscellaneous Information (Pending Santyl Order For Wound Care) This patient mora... PRN PRN XX WOUND CARE; Start 08/24/18 at 03:00 Collagenase (Santyl) 1 applic DAILY PRN TOP PRN; Start 08/24/18 at 09:00 Insulin Aspart (Novolog Insulin Pen) NOVOLOG *MILD* ALGORITHM WITH MEALS BEDTIME SC Last administered on 09/11/18 12:06; Admin Dose 1 UNIT; Start 08/24/18 at 08:00 Diagnostic Test (Pha) (Accu-Chek) 1 ea 02 XX Last administered on 09/11/18 02:13; Admin Dose 1 EA; Start 08/26/18 at 02:00 Docusate Sodium (Colace) 100 mg BID PRN PO CONSTIPATION Last administered on 08/29/18 12:38; Admin Dose 100 MG; Start 08/28/18 at 09:00 Fluconazole (Diflucan) 100 mg DAILY PO Last administered on 09/11/18 08:09; Admin Dose 100 MG; Start 08/28/18 at 14:30 Polyethylene Glycol (Miralax) 17 gm DAILY PRN PO CONSTIPATION; Start 08/29/18 at 14:30 Amlodipine Besylate (Norvasc) 10 mg DAILY PO Last administered on 09/11/18 08: 10; Admin Dose 10 MG; Start 08/31/18 at 09:00 Calcium Carbonate (Tums) 500 mg PC MEALS PO Last administered on 09/11/18 12:06; Admin Dose 500 MG; Start 08/30/18 at 13:00 Metoprolol Succinate (Toprol Xl) 12.5 mg DAILY PO Last administered on 09/11/18 08:08; Admin Dose 12.5 MG; Start 09/01/18 at 14:00 Insulin Glargine (Lantus) 10 units DAILY@2000 SC Last administered on 09/10/18at 20:52; Admin Dose 10 UNITS; Start 09/08/18 at 20:00 Ferric Sodium Gluconate Complex 125 mg/Sodium Chloride 110 ml @ 110 mls/hr DAILY@1300 IVPB Last administered on 09/11/18at 12:06; Admin Dose 110 MLS/HR; Start 09/09/18 at 15:00; Stop 09/13/18 at 13:59 Epoetin Chris-epbx (Retacrit (Non-Esrd)) 10,000 unit MoWeFr@1700 SC Last administered on 09/09/18at 17:32; Admin Dose 10,000 UNIT; Start 09/09/18 at 17:00 ROXANNA SOMERS NP September 11, 2018 13:03
--- NOTE | 2018-09-11 13:21 | CONS ---
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 He has anemia of chronic disease due to recent sepsis and gangrene as well as CRI -iron studies c/w anemia of chronic disease -replace with ferrlecit daily x 5 doses (ordered) -check stool heme occult, recommend colonoscopy as outpt when he is more stable -f/u SPEP/light chains/haptoglobin -he is a candidate for procrit given CRI (ordered) -transfuse to keep hgb >7 . Consultation Date/Type/Reason Admit Date/Time Aug 23, 2018 at 21:27 Initial Consult Date 08/25/18 Requesting Provider: GINA SUTTON MD Date/Time of Note DATE: 09/11/18 TIME: 13:20 24 HR Interval Summary Free Text/Dictation Laboratory Tests Test 09/10/18 05:44 09/11/18 04:21 Hematocrit 22.2 % 22.1 % Hemoglobin 7.7 g/dl 7.5 g/dl Platelet Count 210 10^3/UL 204 10^3/UL White Blood Count 7.2 10^3/ul 6.9 10^3/ul Exam/Review of Systems Exam Vitals Vital Signs Date Temp Pulse Resp B/P (MAP) Pulse Ox O2 O2 Flow FiO2 Time Delivery Rate 09/11/18 98.9 94 18 146/90 97 Room Air 08:00 (108) Intake and Output 09/10/18 09/10/18 09/11/18 1515:00 23:00 07:00 IntakeIntake Total 1060 ml 730 ml 720 ml OutputOutput Total 300 ml 400 ml BalanceBalance 760 ml 730 ml 320 ml Constitutional: frail Head: normocephalic, atraumatic Results Result Diagram: 09/11/18 0421 09/09/18 0528 Results 24hrs Laboratory Tests Test 09/10/18 17:36 09/10/18 20:50 09/11/18 01:48 09/11/18 04:21 Bedside Glucose 162 199 146 White Blood Count 6.9 Red Blood Count 2.48 L Hemoglobin 7.5 L Hematocrit 22.1 L Mean Corpuscular 89.1 Volume Mean Corpuscular 30.2 Hemoglobin Mean Corpuscular 33.9 Hemoglobin Concent Red Cell 14.1 Distribution Width Platelet Count 204 Mean Platelet Volume 9.3 Immature 0.400 Granulocytes % Neutrophils % 69.1 Lymphocytes % 20.7 Monocytes % 6.0 Eosinophils % 3.2 Basophils % 0.6 Nucleated Red Blood 0.0 Cells % Immature 0.030 Granulocytes # Neutrophils # 4.7 Lymphocytes # 1.4 Monocytes # 0.4 Eosinophils # 0.2 Basophils # 0.0 Nucleated Red Blood 0.0 Cells # Test 09/11/18 08:07 09/11/18 12:05 Bedside Glucose 107 165 Medications Medication Current Medications Ferrous Sulfate (Ferrous Sulfate (Ec)) 325 mg DAILY PO Last administered on 09/11/18at 08:09; Admin Dose 325 MG; Start 08/24/18 at 09:00 Linagliptin (Tradjenta) 5 mg DAILY PO Last administered on 09/11/18at 08:09; Admin Dose 5 MG; Start 08/24/18 at 09:00 Pentoxifylline (Trental) 400 mg TID PO Last administered on 09/11/18at 12:06; Admin Dose 400 MG; Start 08/24/18 at 09:00 Miscellaneous Information 1 ea NOTE XX ; Start 08/24/18 at 02:30 Glucose (Glutose) 15 gm Q15M PRN PO DECREASED GLUCOSE Last administered on 09/05/18at 07:57; Admin Dose 15 GM; Start 08/24/18 at 02:30 Glucose (Glutose) 22.5 gm Q15M PRN PO DECREASED GLUCOSE; Start 08/24/18 at 02:30 Dextrose (D50w Syringe) 25 ml Q15M PRN IV DECREASED GLUCOSE; Start 08/24/18 at 02:30 Dextrose (D50w Syringe) 50 ml Q15M PRN IV DECREASED GLUCOSE; Start 08/24/18 at 02:30 Glucagon (Glucagen) 1 mg Q15M PRN IM DECREASED GLUCOSE; Start 08/24/18 at 02:30 Glucose (Glutose) 15 gm Q15M PRN BUCCAL DECREASED GLUCOSE; Start 08/24/18 at 02:30 Pantoprazole (Protonix Tab) 40 mg DAILY@06 PO Last administered on 09/11/18at 05:30; Admin Dose 40 MG; Start 08/24/18 at 06:00 Acetaminophen (Tylenol Tab) 650 mg Q6H PRN PO MILD PAIN(1-3)OR ELEVATED TEMP Last administered on 08/31/18 14:03; Admin Dose 650 MG; Start 08/24/18 at 03:00 Ondansetron HCl (Zofran Inj) 4 mg Q6H PRN IV NAUSEA AND/OR VOMITING Last administered on 08/25/18 09:10; Admin Dose 4 MG; Start 08/24/18 at 03:00 Acetaminophen/ Hydrocodone Bitart ([place] (5/325)) 1 tab Q6H PRN PO MODERATE PAIN LEVEL 4-6 Last administered on 08/27/18 06:18; Admin Dose 1 TAB; Start 08/24/18 at 03:00 Miscellaneous Information (Pending Santyl Order For Wound Care) This patient mora... PRN PRN XX WOUND CARE; Start 08/24/18 at 03:00 Collagenase (Santyl) 1 applic DAILY PRN TOP PRN; Start 08/24/18 at 09:00 Insulin Aspart (Novolog Insulin Pen) NOVOLOG *MILD* ALGORITHM WITH MEALS BEDTIME SC Last administered on 09/11/18 12:06; Admin Dose 1 UNIT; Start 08/24/18 at 08:00 Diagnostic Test (Pha) (Accu-Chek) 1 ea 02 XX Last administered on 09/11/18 02:13; Admin Dose 1 EA; Start 08/26/18 at 02:00 Docusate Sodium (Colace) 100 mg BID PRN PO CONSTIPATION Last administered on 08/29/18 12:38; Admin Dose 100 MG; Start 08/28/18 at 09:00 Fluconazole (Diflucan) 100 mg DAILY PO Last administered on 09/11/18 08:09; Admin Dose 100 MG; Start 08/28/18 at 14:30 Polyethylene Glycol (Miralax) 17 gm DAILY PRN PO CONSTIPATION; Start 08/29/18 at 14:30 Amlodipine Besylate (Norvasc) 10 mg DAILY PO Last administered on 09/11/18 08:10; Admin Dose 10 MG; Start 08/31/18 at 09:00 Calcium Carbonate (Tums) 500 mg PC MEALS PO Last administered on 09/11/18 12:06; Admin Dose 500 MG; Start 08/30/18 at 13:00 Metoprolol Succinate (Toprol Xl) 12.5 mg DAILY PO Last administered on 09/11at 08:08; Admin Dose 12.5 MG; Start 09/01/18 at 14:00 Insulin Glargine (Lantus) 10 units DAILY@2000 SC Last administered on 09/10/18at 20:52; Admin Dose 10 UNITS; Start 09/08/18 at 20:00 Ferric Sodium Gluconate Complex 125 mg/Sodium Chloride 110 ml @ 110 mls/hr DAILY@1300 IVPB Last administered on 09/11/18at 12:06; Admin Dose 110 MLS/HR; Start 09/09/18 at 15:00; Stop 09/13/18 at 13:59 Epoetin Chris-epbx (Retacrit (Non-Esrd)) 10,000 unit MoWeFr@1700 SC Last administered on 09/09/18at 17:32; Admin Dose 10,000 UNIT; Start 09/09/18 at 17:00 ROCÍO CRUZ September 11, 2018 13:21
[2018-09-11 14:00] VITALS: BP 138/91; PULSE 93; RESP 18
[2018-09-11] MEDS: EPOETIN ALFA-EPBX (NON-ESRD 10,000 UNIT/ML VIAL SC SCH (17:25)
--- NOTE | 2018-09-11 17:59 | PN ---
Date/Time of Note Date/Time of Note DATE: 09/11/18 TIME: 17:56 Assessment/Plan VTE Prophylaxis Risk score (from [facility] [place], [place])>0 risk: 8 SCD applied (from [facility] [place], [place] No SCD contraindicated: bilateral LE trauma Pharmacological prophylaxis: NA/contraindicated Pharm contraindication: anticoag not tolerated Lines/Catheters IV [facility]ter Type (from [facility] PICC Line Central line still needed: Yes Urinary Cath still in place: No Assessment/Plan Hospital Course 1 septic shock secondary to right foot infection with possible soft tissue in fection, necrotizing fasciitis (?). Now with gram-negative bacteremia + sp Rt BKA on 08/26/18 2. Diabetes mellitus type II, controlled. 3. Acute kidney injury on chronic kidney disease. 4. Hyponatremia, resolved. 5. Hypotension,resolved 6. Right BKA 7. Anemia, likely anemia of chronic disease, no blood loss no history of GI bleeding 8 Leukocytosis resolved 9 hypocalcemia Assessment/Plan - cw epogen thousand units Friday -Globin improved - per dr Estrella yanes to dc - cw lantus -c/w bp meds - cw PT - gi prophylaxis is Protonix -dvt PROPHYLAXIS , unable to tolerate, anemia. 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, still pending Result Diagram: 09/11/18 0421 09/09/18 0528 Results 24hrs Laboratory Tests Test 09/10/18 20:50 09/11/18 01:48 09/11/18 04:21 09/11/18 08:07 Bedside Glucose 199 146 107 White Blood Count 6.9 Red Blood Count 2.48 L Hemoglobin 7.5 L Hematocrit 22.1 L Mean Corpuscular 89.1 Volume Mean Corpuscular 30.2 Hemoglobin Mean Corpuscular 33.9 Hemoglobin Concent Red Cell 14.1 Distribution Width Platelet Count 204 Mean Platelet Volume 9.3 Immature 0.400 Granulocytes % Neutrophils % 69.1 Lymphocytes % 20.7 Monocytes % 6.0 Eosinophils % 3.2 Basophils % 0.6 Nucleated Red Blood 0.0 Cells % Immature 0.030 Granulocytes # Neutrophils # 4.7 Lymphocytes # 1.4 Monocytes # 0.4 Eosinophils # 0.2 Basophils # 0.0 Nucleated Red Blood 0.0 Cells # Test 09/11/18 12:05 09/11/18 17:20 Bedside Glucose 165 145 Subjective 24 Hr Interval Summary Free Text/Dictation ambulates with walker Constitutional: improved ENT: no complaints Exam/Review of Systems Exam Vitals Vital Signs Date Temp Pulse Resp B/P (MAP) Pulse Ox O2 O2 Flow FiO2 Time Delivery Rate 09/11/18 97.9 93 18 138/91 97 Room Air 14:00 (107) Intake and Output 09/10/18 09/10/18 09/11/18 1414:59 22:59 06:59 IntakeIntake Total 1060 ml 730 ml 720 ml OutputOutput Total 300 ml 400 ml BalanceBalance 760 ml 730 ml 320 ml Constitutional: alert, oriented Head: normocephalic Eyes: nl conjunctiva Neck: supple Respiratory: clear to auscultation Cardiovascular: regular rate and rhythm Gastrointestinal: soft Genitourinary - Male: CVA tenderness; No nl penis, No nl scrotum, No discharge, No other Musculoskeletal: swelling (right BKA, stapled) Results Results 24hrs Laboratory Tests Test 09/10/18 20:50 09/11/18 01:48 09/11/18 04:21 09/11/18 08:07 Bedside Glucose 199 146 107 White Blood Count 6.9 Red Blood Count 2.48 L Hemoglobin 7.5 L Hematocrit 22.1 L Mean Corpuscular 89.1 Volume Mean Corpuscular 30.2 Hemoglobin Mean Corpuscular 33.9 Hemoglobin Concent Red Cell 14.1 Distribution Width Platelet Count 204 Mean Platelet Volume 9.3 Immature 0.400 Granulocytes % Neutrophils % 69.1 Lymphocytes % 20.7 Monocytes % 6.0 Eosinophils % 3.2 Basophils % 0.6 Nucleated Red Blood 0.0 Cells % Immature 0.030 Granulocytes # Neutrophils # 4.7 Lymphocytes # 1.4 Monocytes # 0.4 Eosinophils # 0.2 Basophils # 0.0 Nucleated Red Blood 0.0 Cells # Test 09/11/18 12:05 09/11/18 17:20 Bedside Glucose 165 145 Medications Medication Current Medications Ferrous Sulfate (Ferrous Sulfate (Ec)) 325 mg DAILY PO Last administered on 09/11/18at 08:09; Admin Dose 325 MG; Start 08/24/18 at 09:00 Linagliptin (Tradjenta) 5 mg DAILY PO Last administered on 09/11/18at 08:09; Admin Dose 5 MG; Start 08/24/18 at 09:00 Pentoxifylline (Trental) 400 mg TID PO Last administered on 09/11/18at 12:06; Admin Dose 400 MG; Start 08/24/18 at 09:00 Miscellaneous Information 1 ea NOTE XX ; Start 08/24/18 at 02:30 Glucose (Glutose) 15 gm Q15M PRN PO DECREASED GLUCOSE Last administered on 09/05/18at 07:57; Admin Dose 15 GM; Start 08/24/18 at 02:30 Glucose (Glutose) 22.5 gm Q15M PRN PO DECREASED GLUCOSE; Start 08/24/18 at 02:30 Dextrose (D50w Syringe) 25 ml Q15M PRN IV DECREASED GLUCOSE; Start 08/24/18 at 02:30 Dextrose (D50w Syringe) 50 ml Q15M PRN IV DECREASED GLUCOSE; Start 08/24/18 at 02:30 Glucagon (Glucagen) 1 mg Q15M PRN IM DECREASED GLUCOSE; Start 08/24/18 at 02:30 Glucose (Glutose) 15 gm Q15M PRN BUCCAL DECREASED GLUCOSE; Start 08/24/18 at 02:30 Pantoprazole (Protonix Tab) 40 mg DAILY@06 PO Last administered on 09/11/18at 05:30; Admin Dose 40 MG; Start 08/24/18 at 06:00 Acetaminophen (Tylenol Tab) 650 mg Q6H PRN PO MILD PAIN(1-3)OR ELEVATED TEMP Last administered on 08/31/18at 14:03; Admin Dose 650 MG; Start 08/24/18 at 03:00 Ondansetron HCl (Zofran Inj) 4 mg Q6H PRN IV NAUSEA AND/OR VOMITING Last administered on 08/25/18at 09:10; Admin Dose 4 MG; Start 08/24/18 at 03:00 Acetaminophen/ Hydrocodone Bitart ([place] (5/325)) 1 tab Q6H PRN PO MODERATE PAIN LEVEL 4-6 Last administered on 08/27/18at 06:18; Admin Dose 1 TAB; Start 08/24/18 at 03:00 Miscellaneous Information (Pending Santyl Order For Wound Care) This patient mora... PRN PRN XX WOUND CARE; Start 08/24/18 at 03:00 Collagenase (Santyl) 1 applic DAILY PRN TOP PRN; Start 08/24/18 at 09:00 Insulin Aspart (Novolog Insulin Pen) NOVOLOG *MILD* ALGORITHM WITH MEALS BEDTIME SC Last administered on 09/11/18 17:24; Admin Dose 1 UNIT; Start 08/24/18 at 08:00 Diagnostic Test (Pha) (Accu-Chek) 1 ea 02 XX Last administered on 09/11/18 02:13; Admin Dose 1 EA; Start 08/26/18 at 02:00 Docusate Sodium (Colace) 100 mg BID PRN PO CONSTIPATION Last administered on 08/29/18 12:38; Admin Dose 100 MG; Start 08/28/18 at 09:00 Fluconazole (Diflucan) 100 mg DAILY PO Last administered on 09/11/18 08:09; Admin Dose 100 MG; Start 08/28/18 at 14:30 Polyethylene Glycol (Miralax) 17 gm DAILY PRN PO CONSTIPATION; Start 08/29/18 at 14:30 Amlodipine Besylate (Norvasc) 10 mg DAILY PO Last administered on 09/11/18 08:10; Admin Dose 10 MG; Start 08/31/18 at 09:00 Calcium Carbonate (Tums) 500 mg PC MEALS PO Last administered on 09/11/18 12:06; Admin Dose 500 MG; Start 08/30/18 at 13:00 Metoprolol Succinate (Toprol Xl) 12.5 mg DAILY PO Last administered on 09/11/18 08:08; Admin Dose 12.5 MG; Start 09/01/18 at 14:00 Insulin Glargine (Lantus) 10 units DAILY@2000 SC Last administered on 09/10/18 20:52; Admin Dose 10 UNITS; Start 09/08/18 at 20:00 Ferric Sodium Gluconate Complex 125 mg/Sodium Chloride 110 ml @ 110 mls/hr DAILY@1300 IVPB Last administered on 09/11/18 12:06; Admin Dose 110 MLS/HR; Start 09/09/18 at 15:00; Stop 09/13/18 at 13:59 Epoetin Chris-epbx (Retacrit (Non-Esrd)) 10,000 unit MoWeFr@1700 SC Last administered on 09/11/18 17:25; Admin Dose 10,000 UNIT; Start 09/09/18 at 17:00 TEODORO RIDER September 11, 2018 17:59
[2018-09-11] MEDS: SOD CHLORIDE 0.9% 1,000 ML IV SCH (18:49)
[2018-09-11 20:05] VITALS: BP 148/92; PULSE 99; RESP 18
[2018-09-11] MEDS: INSULIN GLARGINE [LANTus] (100 UNITS/ML) SYG SC SCH (21:09)
[2018-09-12 02:00] VITALS: BP 140/87; PULSE 87; RESP 18
[2018-09-12] MEDS: ACCU-CHEK XX SCH (02:00)
[2018-09-12] MEDS: PANTOPRAZOLE (EC) 40 MG TAB PO SCH (05:13)
[2018-09-12] MEDS: INSULIN ASPART [NOVOLOG] 3 ML PEN SC SCH ×4 (08:00→21:00)
[2018-09-12 08:03] VITALS: BP 136/84; PULSE 92; RESP 18
[2018-09-12] MEDS: FLUCONAZOLE 100 MG TAB PO SCH (08:10)
[2018-09-12] MEDS: PENTOXIFYLLINE (SR) 400 MG TAB PO SCH ×3 (08:10→21:22)
[2018-09-12] MEDS: FERROUS SULFATE (EC) 325 MG TAB PO SCH (08:10)
[2018-09-12] MEDS: CALCIUM CARBONATE 500 MG CHEW TAB PO SCH ×3 (08:10→17:26)
[2018-09-12] MEDS: LINAGLIPTIN 5 MG TABLET PO SCH (08:10)
[2018-09-12] MEDS: METOPROLOL (XL) 25 MG TAB PO SCH (08:11)
[2018-09-12] MEDS: AMLODIPINE 10 MG TAB PO SCH (08:11)
--- NOTE | 2018-09-12 08:56 | PN ---
Date/Time of Note Date/Time of Note DATE: 09/12/18 TIME: 08:53 Assessment/Plan VTE Prophylaxis Risk score (from [facility] [place])>0 risk: 8 SCD applied (from [facility] [place]): No SCD contraindicated: bilateral amputee Pharmacological prophylaxis: NA/contraindicated Pharm contraindication: surgical contra, anticoag not tolerated Lines/Catheters IV Catheter Type (from [facility]): PICC Line Central line still needed: Yes Urinary Cath still in place: No Assessment/Plan Hospital Course 1 septic shock secondary to right foot infection with possible soft tissue infection, necrotizing fasciitis (?). Now with gram-negative bacteremia + sp Rt BKA on 08/26/18 2. Diabetes mellitus type II, controlled. 3. Acute kidney injury on chronic kidney disease. 4. Hyponatremia, resolved. 5. Hypotension,resolved 6. Right BKA 7. Anemia, likely anemia of chronic disease, no blood loss no history of GI bleeding 8 Leukocytosis resolved 9 hypocalcemia Assessment/Plan - cw epogen 10 thousand units Friday -Globin improved - per dr Estrella yanes to dc - cw lantus -c/w bp meds - cw PT -c/w gentle IV fluids - gi prophylaxis is Protonix -dvt PROPHYLAXIS , unable to tolerate, anemia. 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, still pending Result Diagram: 09/12/18 0511 09/12/18 0511 Results 24hrs Laboratory Tests Test 09/11/18 12:05 09/11/18 17:20 09/11/18 21:08 09/12/18 05:11 Bedside Glucose 165 145 143 White Blood Count 5.8 Red Blood Count 2.50 L Hemoglobin 7.5 L Hematocrit 22.0 L Mean Corpuscular 88.0 Volume Mean Corpuscular 30.0 Hemoglobin Mean Corpuscular 34.1 Hemoglobin Concent Red Cell 14.3 Distribution Width Platelet Count 217 Mean Platelet Volume 9.3 Immature 0.500 H Granulocytes % Neutrophils % 63.6 Lymphocytes % 24.1 Monocytes % 6.5 Eosinophils % 4.6 Basophils % 0.7 Nucleated Red Blood 0.0 Cells % Immature 0.030 Granulocytes # Neutrophils # 3.7 Lymphocytes # 1.4 Monocytes # 0.4 Eosinophils # 0.3 Basophils # 0.0 Nucleated Red Blood 0.0 Cells # Sodium Level 138 Potassium Level 3.8 Chloride Level 107 Carbon Dioxide Level 29 Anion Gap 2 L Blood Urea Nitrogen 36 H Creatinine 1.72 H Est Glomerular 42 L Filtrat Rate mL/min Glucose Level 73 Calcium Level 8.5 Test 09/12/18 08:08 Bedside Glucose 138 Subjective 24 Hr Interval Summary Constitutional: no complaints Exam/Review of Systems Exam Vitals Vital Signs Date Temp Pulse Resp B/P (MAP) Pulse Ox O2 O2 Flow FiO2 Time Delivery Rate 09/12/18 99.2 92 18 136/84 96 08:03 (101) 09/11/18 Room Air 14:00 Intake and Output 09/11/18 09/11/18 09/12/18 1515:00 23:00 07:00 IntakeIntake Total 410 ml 800 ml 480 ml OutputOutput Total 500 ml 600 ml 900 ml BalanceBalance -90 ml 200 ml -420 ml Constitutional: alert, oriented Head: normocephalic Eyes: nl conjunctiva Neck: supple Respiratory: clear to auscultation Cardiovascular: regular rate and rhythm Gastrointestinal: soft (right amputee, delio) Musculoskeletal: swelling Results Results 24hrs Laboratory Tests Test 09/11/18 12:05 09/11/18 17:20 09/11/18 21:08 09/12/18 05:11 Bedside Glucose 165 145 143 White Blood Count 5.8 Red Blood Count 2.50 L Hemoglobin 7.5 L Hematocrit 22.0 L Mean Corpuscular 88.0 Volume Mean Corpuscular 30.0 Hemoglobin Mean Corpuscular 34.1 Hemoglobin Concent Red Cell 14.3 Distribution Width Platelet Count 217 Mean Platelet Volume 9.3 Immature 0.500 H Granulocytes % Neutrophils % 63.6 Lymphocytes % 24.1 Monocytes % 6.5 Eosinophils % 4.6 Basophils % 0.7 Nucleated Red Blood 0.0 Cells % Immature 0.030 Granulocytes # Neutrophils # 3.7 Lymphocytes # 1.4 Monocytes # 0.4 Eosinophils # 0.3 Basophils # 0.0 Nucleated Red Blood 0.0 Cells # Sodium Level 138 Potassium Level 3.8 Chloride Level 107 Carbon Dioxide Level 29 Anion Gap 2 L Blood Urea Nitrogen 36 H Creatinine 1.72 H Est Glomerular 42 L Filtrat Rate mL/min Glucose Level 73 Calcium Level 8.5 Test 09/12/18 08:08 Bedside Glucose 138 Medications Medication Current Medications Ferrous Sulfate (Ferrous Sulfate (Ec)) 325 mg DAILY PO Last administered on 09/12/18 08:10; Admin Dose 325 MG; Start 08/24/18 at 09:00 Linagliptin (Tradjenta) 5 mg DAILY PO Last administered on 09/12/18 08:10; Admin Dose 5 MG; Start 08/24/18 at 09:00 Pentoxifylline (Trental) 400 mg TID PO Last administered on 09/12/18 08:10; Admin Dose 400 MG; Start 08/24/18 at 09:00 Miscellaneous Information 1 ea NOTE XX ; Start 08/24/18 at 02:30 Glucose (Glutose) 15 gm Q15M PRN PO DECREASED GLUCOSE Last administered on 09/05/18 07:57; Admin Dose 15 GM; Start 08/24/18 at 02:30 Glucose (Glutose) 22.5 gm Q15M PRN PO DECREASED GLUCOSE; Start 08/24/18 at 02:30 Dextrose (D50w Syringe) 25 ml Q15M PRN IV DECREASED GLUCOSE; Start 08/24/18 at 02:30 Dextrose (D50w Syringe) 50 ml Q15M PRN IV DECREASED GLUCOSE; Start 08/24/18 at 02:30 Glucagon (Glucagen) 1 mg Q15M PRN IM DECREASED GLUCOSE; Start 08/24/18 at 02:30 Glucose (Glutose) 15 gm Q15M PRN BUCCAL DECREASED GLUCOSE; Start 08/24/18 at 02:30 Pantoprazole (Protonix Tab) 40 mg DAILY@06 PO Last administered on 09/12/18 05:13; Admin Dose 40 MG; Start 08/24/18 at 06:00 Acetaminophen (Tylenol Tab) 650 mg Q6H PRN PO MILD PAIN(1-3)OR ELEVATED TEMP Last administered on 08/31/18 14:03; Admin Dose 650 MG; Start 08/24/18 at 03:00 Ondansetron HCl (Zofran Inj) 4 mg Q6H PRN IV NAUSEA AND/OR VOMITING Last administered on 08/25/18 09:10; Admin Dose 4 MG; Start 08/24/18 at 03:00 Acetaminophen/ Hydrocodone Bitart ([place] (5/325)) 1 tab Q6H PRN PO MODERATE PAIN LEVEL 4-6 Last administered on 5/2/19at 06:18; Admin Dose 1 TAB; Start 08/24/18 at 03:00 Miscellaneous Information (Pending Santyl Order For Wound Care) This patient mora... PRN PRN XX WOUND CARE; Start 08/24/18 at 03:00 Collagenase (Santyl) 1 applic DAILY PRN TOP PRN; Start 08/24/18 at 09:00 Insulin Aspart (Novolog Insulin Pen) NOVOLOG *MILD* ALGORITHM WITH MEALS BEDTIME SC Last administered on 09/11/18 17:24; Admin Dose 1 UNIT; Start 08/24/18 at 08:00 Diagnostic Test (Pha) (Accu-Chek) 1 ea 02 XX Last administered on 09/11/18 02:13; Admin Dose 1 EA; Start 08/26/18 at 02:00 Docusate Sodium (Colace) 100 mg BID PRN PO CONSTIPATION Last administered on 08/29/18 12:38; Admin Dose 100 MG; Start 08/28/18 at 09:00 Fluconazole (Diflucan) 100 mg DAILY PO Last administered on 09/12/18 08:10; Admin Dose 100 MG; Start 08/28/18 at 14:30 Polyethylene Glycol (Miralax) 17 gm DAILY PRN PO CONSTIPATION; Start 08/29/18 at 14:30 Amlodipine Besylate (Norvasc) 10 mg DAILY PO Last administered on 09/12/18 08:11; Admin Dose 10 MG; Start 08/31/18 at 09:00 Calcium Carbonate (Tums) 500 mg PC MEALS PO Last administered on 09/12/18 08:10; Admin Dose 500 MG; Start 08/30/18 at 13:00 Metoprolol Succinate (Toprol Xl) 12.5 mg DAILY PO Last administered on 09/12/18 08:11; Admin Dose 12.5 MG; Start 09/01/18 at 14:00 Insulin Glargine (Lantus) 10 units DAILY@2000 SC Last administered on 09/11/18 21:09; Admin Dose 10 UNITS; Start 09/08/18 at 20:00 Ferric Sodium Gluconate Complex 125 mg/Sodium Chloride 110 ml @ 110 mls/hr DAILY@1300 IVPB Last administered on 09/11/18 12:06; Admin Dose 110 MLS/HR; Start 09/09/18 at 15:00; Stop 09/13/18 at 13:59 Epoetin Chris-epbx (Retacrit (Non-Esrd)) 10,000 unit MoWeFr@1700 SC Last administered on 09/11/18at 17:25; Admin Dose 10,000 UNIT; Start 09/09/18 at 17:00 Sodium Chloride 1,000 ml @ 30 mls/hr Q24H IV Last administered on 09/11/18at 18:49; Admin Dose 30 MLS/HR; Start 09/11/18 at 18:00 TEODORO RIDER September 12, 2018 08:56
[2018-09-12] MEDS: SOD FERRIC GLUC COMPLX 125 MG in SOD CHLORIDE 0.9% 100 ML IVPB SCH (12:22)
--- NOTE | 2018-09-12 14:17 | CONS ---
Consultation Date/Type/Reason Admit Date/Time Aug 23, 2018 at 21:27 Initial Consult Date 08/25/18 Type of Consult SUBJECTIVE: Patient is he is awake, alert, afebrile. No acute events over night. S/P right below-knee amputation 08/27/18 VS: Stable T: 99.2 LABS: Reviewed. WBC-5.8 Repeat MRI of Left foot: IMPRESSION: 1. Status post amputation of the fifth ray to the level of the proximal diaphysis of the fifth metatarsal and status post third and fourth digits amputation at the level of the MTP joints. 2. Mild reactive marrow edema at the amputation margin of the fifth metatarsal without marrow infiltrative signal to suggest osteomyelitis at this time. 3. Stress-related/reactive edema at the base of the second metatarsal noted again. Degenerative changes as above. 4. Diffuse subcutaneous edema in the dorsum of the foot and remaining toes and diffuse muscle edema. Microbiology: Blood culture on admission grew VRE susceptible to ampicillin and gram-negative rods, repeat blood cultures neg Indwelling's: Right upper extremity PICC line Antimicrobials: none at this time Physical examination: GEN: This is a well-developed well-nourished middle-aged male, who is in no distress. HENT: Head atraumatic normocephalic ;sclera nonicteric. Neck is supple. PULM: Chest rise symmetrical, breath sounds clear. Heart: S1-S2. Abdomen soft bowel sounds present. Extremities with bilateral lower extremity dressings present with purulent drainage and foul order also patient has gangrene all stools Assessment: 1. Severe sepsis, present on admission 2. Bilateral lower extremity's gangrene/osteomyelitis 3. Peripheral arterial disease 4. Diabetes 5. Acute kidney injury 6. Anemia Plan: Pt is stable. Pt has completer antbx treatment. Pending DC Requesting Provider: GINA SUTTON MD Date/Time of Note DATE: 09/12/18 TIME: 14:15 Exam/Review of Systems Exam Vitals Vital Signs Date Temp Pulse Resp B/P (MAP) Pulse Ox O2 O2 Flow FiO2 Time Delivery Rate 09/12/18 99.2 92 18 136/84 96 08:03 (101) 09/11/18 Room Air 14:00 Intake and Output 09/11/18 09/11/18 09/12/18 1515:00 23:00 07:00 IntakeIntake Total 410 ml 800 ml 480 ml OutputOutput Total 500 ml 600 ml 900 ml BalanceBalance -90 ml 200 ml -420 ml Results Result Diagram: 09/12/18 0511 09/12/18 05 Results 24hrs Laboratory Tests Test 09/11/18 17:20 09/11/18 21:08 09/12/18 05:11 09/12/18 08:08 Bedside Glucose 145 143 138 White Blood Count 5.8 Red Blood Count 2.50 L Hemoglobin 7.5 L Hematocrit 22.0 L Mean Corpuscular 88.0 Volume Mean Corpuscular 30.0 Hemoglobin Mean Corpuscular 34.1 Hemoglobin Concent Red Cell 14.3 Distribution Width Platelet Count 217 Mean Platelet Volume 9.3 Immature 0.500 H Granulocytes % Neutrophils % 63.6 Lymphocytes % 24.1 Monocytes % 6.5 Eosinophils % 4.6 Basophils % 0.7 Nucleated Red Blood 0.0 Cells % Immature 0.030 Granulocytes # Neutrophils # 3.7 Lymphocytes # 1.4 Monocytes # 0.4 Eosinophils # 0.3 Basophils # 0.0 Nucleated Red Blood 0.0 Cells # Sodium Level 138 Potassium Level 3.8 Chloride Level 107 Carbon Dioxide Level 29 Anion Gap 2 L Blood Urea Nitrogen 36 H Creatinine 1.72 H Est Glomerular 42 L Filtrat Rate mL/min Glucose Level 73 Calcium Level 8.5 Test 09/12/18 12:20 Bedside Glucose 172 Medications Medication Current Medications Ferrous Sulfate (Ferrous Sulfate (Ec)) 325 mg DAILY PO Last administered on 09/12/18at 08:10; Admin Dose 325 MG; Start 08/24/18 at 09:00 Linagliptin (Tradjenta) 5 mg DAILY PO Last administered on 09/12/18at 08:10; Admin Dose 5 MG; Start 08/24/18 at 09:00 Pentoxifylline (Trental) 400 mg TID PO Last administered on 09/12/18at 12:24; Admin Dose 400 MG; Start 08/24/18 at 09:00 Miscellaneous Information 1 ea NOTE XX ; Start 08/24/18 at 02:30 Glucose (Glutose) 15 gm Q15M PRN PO DECREASED GLUCOSE Last administered on 03/16at 07:57; Admin Dose 15 GM; Start 08/24/18 at 02:30 Glucose (Glutose) 22.5 gm Q15M PRN PO DECREASED GLUCOSE; Start 08/24/18 at 02:30 Dextrose (D50w Syringe) 25 ml Q15M PRN IV DECREASED GLUCOSE; Start 08/24/18 at 02:30 Dextrose (D50w Syringe) 50 ml Q15M PRN IV DECREASED GLUCOSE; Start 08/24/18 at 02:30 Glucagon (Glucagen) 1 mg Q15M PRN IM DECREASED GLUCOSE; Start 08/24/18 at 02:30 Glucose (Glutose) 15 gm Q15M PRN BUCCAL DECREASED GLUCOSE; Start 08/24/18 at 02:30 Pantoprazole (Protonix Tab) 40 mg DAILY@06 PO Last administered on 09/12/18at 05:13; Admin Dose 40 MG; Start 08/24/18 at 06:00 Acetaminophen (Tylenol Tab) 650 mg Q6H PRN PO MILD PAIN(1-3)OR ELEVATED TEMP Last administered on 08/31/18at 14:03; Admin Dose 650 MG; Start 08/24/18 at 03:00 Ondansetron HCl (Zofran Inj) 4 mg Q6H PRN IV NAUSEA AND/OR VOMITING Last administered on 08/25/18 09:10; Admin Dose 4 MG; Start 08/24/18 at 03:00 Acetaminophen/ Hydrocodone Bitart ([place] (5/325)) 1 tab Q6H PRN PO MODERATE PAIN LEVEL 4-6 Last administered on 08/27/18 06:18; Admin Dose 1 TAB; Start 08/24/18 at 03:00 Miscellaneous Information (Pending Santyl Order For Wound Care) This patient mora... PRN PRN XX WOUND CARE; Start 08/24/18 at 03:00 Collagenase (Santyl) 1 applic DAILY PRN TOP PRN; Start 08/24/18 at 09:00 Insulin Aspart (Novolog Insulin Pen) NOVOLOG *MILD* ALGORITHM WITH MEALS BEDTIME SC Last administered on 09/12/18at 12:22; Admin Dose 1 UNIT; Start 08/24/18 at 08:00 Diagnostic Test (Pha) (Accu-Chek) 1 ea 02 XX Last administered on 09/11/18at 02:13; Admin Dose 1 EA; Start 08/26/18 at 02:00 Docusate Sodium (Colace) 100 mg BID PRN PO CONSTIPATION Last administered on 08/29/18 12:38; Admin Dose 100 MG; Start 08/28/18 at 09:00 Fluconazole (Diflucan) 100 mg DAILY PO Last administered on 09/12/18 08:10; Admin Dose 100 MG; Start 08/28/18 at 14:30 Polyethylene Glycol (Miralax) 17 gm DAILY PRN PO CONSTIPATION; Start 08/29/18 at 14:30 Amlodipine Besylate (Norvasc) 10 mg DAILY PO Last administered on 09/12/18 08:11; Admin Dose 10 MG; Start 08/31/18 at 09:00 Calcium Carbonate (Tums) 500 mg PC MEALS PO Last administered on 09/12/18 12:24; Admin Dose 500 MG; Start 08/30/18 at 13:00 Metoprolol Succinate (Toprol Xl) 12.5 mg DAILY PO Last administered on 09/12/18 08:11; Admin Dose 12.5 MG; Start 09/01/18 at 14:00 Insulin Glargine (Lantus) 10 units DAILY@2000 SC Last administered on 09/11/18 21:09; Admin Dose 10 UNITS; Start 09/08/18 at 20:00 Ferric Sodium Gluconate Complex 125 mg/Sodium Chloride 110 ml @ 110 mls/hr DAILY@1300 IVPB Last administered on 09/12/18 12:22; Admin Dose 110 MLS/HR; Start 09/09/18 at 15:00; Stop 09/13/18 at 13:59 Epoetin Chris-epbx (Retacrit (Non-Esrd)) 10,000 unit MoWeFr@1700 SC Last administered on 09/11/18 17:25; Admin Dose 10,000 UNIT; Start 09/09/18 at 17:00 Sodium Chloride 1,000 ml @ 30 mls/hr Q24H IV Last administered on 09/11/18 18:49; Admin Dose 30 MLS/HR; Start 09/11/18 at 18:00 MATIAS HASTINGS September 12, 2018 14:17
[2018-09-12 14:49] VITALS: BP 138/85; PULSE 94; RESP 16
[2018-09-12] MEDS: SOD CHLORIDE 0.9% 1,000 ML IV SCH (17:26)
[2018-09-12 19:34] VITALS: BP 127/74; PULSE 102; RESP 17
[2018-09-12] MEDS: INSULIN GLARGINE [LANTus] (100 UNITS/ML) SYG SC SCH (21:24)
[2018-09-13 01:57] VITALS: BP 141/87; PULSE 93; RESP 17
[2018-09-13] MEDS: ACCU-CHEK XX SCH (02:00)
[2018-09-13] MEDS: PANTOPRAZOLE (EC) 40 MG TAB PO SCH (05:35)
[2018-09-13] MEDS: INSULIN ASPART [NOVOLOG] 3 ML PEN SC SCH ×4 (08:00→20:27)
[2018-09-13 08:12] VITALS: BP 144/87; PULSE 93; RESP 18
[2018-09-13] MEDS: FERROUS SULFATE (EC) 325 MG TAB PO SCH (09:05)
[2018-09-13] MEDS: AMLODIPINE 10 MG TAB PO SCH (09:05)
[2018-09-13] MEDS: FLUCONAZOLE 100 MG TAB PO SCH (09:05)
[2018-09-13] MEDS: CALCIUM CARBONATE 500 MG CHEW TAB PO SCH ×3 (09:06→19:05)
[2018-09-13] MEDS: PENTOXIFYLLINE (SR) 400 MG TAB PO SCH ×3 (09:06→20:26)
[2018-09-13] MEDS: LINAGLIPTIN 5 MG TABLET PO SCH (09:06)
[2018-09-13] MEDS: METOPROLOL (XL) 25 MG TAB PO SCH (09:06)
[2018-09-13] MEDS: SOD CHLORIDE 0.9% 1,000 ML IV SCH ×2 (09:09→17:16)
--- NOTE | 2018-09-13 11:21 | PN ---
Date/Time of Note Date/Time of Note DATE: 09/13/18 TIME: 11:18 Assessment/Plan VTE Prophylaxis Risk score (from [facility] [place])>0 risk: 9 SCD applied (from [facility] [place]): No SCD contraindicated: bilateral amputee Pharmacological prophylaxis: NA/contraindicated Pharm contraindication: blood coag disorder Lines/Catheters IV [facility]from [facility] PICC Line Central line still needed: Yes Urinary Cath still in place: No Assessment/Plan Hospital Course 1 septic shock secondary to right foot infection with possible soft tissue infection, necrotizing fasciitis (?). Now with gram-negative bacteremia + sp Rt BKA on 08/26/18 2. Diabetes mellitus type II, controlled. 3. Acute kidney injury on chronic kidney disease. 4. Hyponatremia, resolved. 5. Hypotension,resolved 6. Right BKA 7. Anemia, likely anemia of chronic disease, no blood loss no history of GI bleeding 8 Leukocytosis resolved 9 hypocalcemia Assessment/Plan - cw epogen 10 thousand units Friday -Globin improved - per dr Estrella yanes to dc - cw lantus -c/w bp meds - cw PT -c/w gentle IV fluids - gi prophylaxis is Protonix -dvt PROPHYLAXIS , unable to tolerate, anemia. -Epogen authorization rejected -manager [employer] to arrange for home health, still pending -remove delio every other Result Diagram: 09/12/18 0511 09/12/18 0511 Results 24hrs Laboratory Tests Test 09/12/18 12:20 09/12/18 17:25 09/12/18 21:22 09/13/18 08:40 Bedside Glucose 172 135 150 112 Subjective 24 Hr Interval Summary Constitutional: no complaints Eyes: no complaints Exam/Review of Systems Exam Vitals Vital Signs Date Temp Pulse Resp B/P (MAP) Pulse Ox O2 O2 Flow FiO2 Time Delivery Rate 09/13/18 99.6 93 18 144/87 96 08:12 (106) 09/11/18 Room Air 14:00 Intake and Output 09/12/18 09/12/18 09/13/18 1515:00 23:00 07:00 IntakeIntake Total 110 ml 1830 ml 650 ml OutputOutput Total 1000 ml 750 ml BalanceBalance 110 ml 830 ml -100 ml Constitutional: alert, oriented Neck: supple Respiratory: normal air movement Cardiovascular: regular rate and rhythm Gastrointestinal: soft Extremities: edema (right stump), other (left foot wound) Results Results 24hrs Laboratory Tests Test 09/12/18 12:20 09/12/18 17:25 09/12/18 21:22 09/13/18 08:40 Bedside Glucose 172 135 150 112 Medications Medication Current Medications Ferrous Sulfate (Ferrous Sulfate (Ec)) 325 mg DAILY PO Last administered on 09/13/18 09:05; Admin Dose 325 MG; Start 08/24/18 at 09:00 Linagliptin (Tradjenta) 5 mg DAILY PO Last administered on 09/13/18 09:06; Admin Dose 5 MG; Start 08/24/18 at 09:00 Pentoxifylline (Trental) 400 mg TID PO Last administered on 09/13/18 09:06; Admin Dose 400 MG; Start 08/24/18 at 09:00 Miscellaneous Information 1 ea NOTE XX ; Start 08/24/18 at 02:30 Glucose (Glutose) 15 gm Q15M PRN PO DECREASED GLUCOSE Last administered on 09/05/18at 07:57; Admin Dose 15 GM; Start 08/24/18 at 02:30 Glucose (Glutose) 22.5 gm Q15M PRN PO DECREASED GLUCOSE; Start 08/24/18 at 0 2:30 Dextrose (D50w Syringe) 25 ml Q15M PRN IV DECREASED GLUCOSE; Start 08/24/18 at 02:30 Dextrose (D50w Syringe) 50 ml Q15M PRN IV DECREASED GLUCOSE; Start 08/24/18 at 02:30 Glucagon (Glucagen) 1 mg Q15M PRN IM DECREASED GLUCOSE; Start 08/24/18 at 02:30 Glucose (Glutose) 15 gm Q15M PRN BUCCAL DECREASED GLUCOSE; Start 08/24/18 at 02:30 Pantoprazole (Protonix Tab) 40 mg DAILY@06 PO Last administered on 09/13/18at 05:35; Admin Dose 40 MG; Start 08/24/18 at 06:00 Acetaminophen (Tylenol Tab) 650 mg Q6H PRN PO MILD PAIN(1-3)OR ELEVATED TEMP Last administered on 08/31/18at 14:03; Admin Dose 650 MG; Start 08/24/18 at 03:00 Ondansetron HCl (Zofran Inj) 4 mg Q6H PRN IV NAUSEA AND/OR VOMITING Last administered on 08/25/18 09:10; Admin Dose 4 MG; Start 08/24/18 at 03:00 Acetaminophen/ Hydrocodone Bitart ([place] (5/325)) 1 tab Q6H PRN PO MODERATE PAIN LEVEL 4-6 Last administered on 08/27/18 06:18; Admin Dose 1 TAB; Start 08/24/18 at 03:00 Miscellaneous Information (Pending Santyl Order For Wound Care) This patient mora... PRN PRN XX WOUND CARE; Start 08/24/18 at 03:00 Collagenase (Santyl) 1 applic DAILY PRN TOP PRN; Start 08/24/18 at 09:00 Insulin Aspart (Novolog Insulin Pen) NOVOLOG *MILD* ALGORITHM WITH MEALS BEDTIME SC Last administered on 09/12/18 12:22; Admin Dose 1 UNIT; Start 08/24/18 at 08:00 Diagnostic Test (Pha) (Accu-Chek) 1 ea 02 XX Last administered on 09/11/18 02:13; Admin Dose 1 EA; Start 08/26/18 at 02:00 Docusate Sodium (Colace) 100 mg BID PRN PO CONSTIPATION Last administered on 08/29/18 12:38; Admin Dose 100 MG; Start 08/28/18 at 09:00 Fluconazole (Diflucan) 100 mg DAILY PO Last administered on 09/13/18 09:05; Admin Dose 100 MG; Start 08/28/18 at 14:30 Polyethylene Glycol (Miralax) 17 gm DAILY PRN PO CONSTIPATION; Start 08/29/18 at 14:30 Amlodipine Besylate (Norvasc) 10 mg DAILY PO Last administered on 09/13/18 09:05; Admin Dose 10 MG; Start 08/31/18 at 09:00 Calcium Carbonate (Tums) 500 mg PC MEALS PO Last administered on 09/13/18 09:06; Admin Dose 500 MG; Start 08/30/18 at 13:00 Metoprolol Succinate (Toprol Xl) 12.5 mg DAILY PO Last administered on 09/13/18 09:06; Admin Dose 12.5 MG; Start 09/01/18 at 14:00 Insulin Glargine (Lantus) 10 units DAILY@2000 SC Last administered on 5/18/19at 21:24; Admin Dose 10 UNITS; Start 09/08/18 at 20:00 Ferric Sodium Gluconate Complex 125 mg/Sodium Chloride 110 ml @ 110 mls/hr DAILY@1300 IVPB Last administered on 09/12/18at 12:22; Admin Dose 110 MLS/HR; Start 09/09/18 at 15:00; Stop 09/13/18 at 13:59 Epoetin Chris-epbx (Retacrit (Non-Esrd)) 10,000 unit MoWeFr@1700 SC Last administered on 09/11/18at 17:25; Admin Dose 10,000 UNIT; Start 09/09/18 at 17:00 Sodium Chloride 1,000 ml @ 30 mls/hr Q24H IV Last administered on 09/13/18at 09:09; Admin Dose 30 MLS/HR; Start 09/11/18 at 18:00 TEODORO RIDER September 13, 2018 11:21
--- NOTE | 2018-09-13 11:53 | CONS ---
Consultation Date/Type/Reason Admit Date/Time Aug 23, 2018 at 21:27 Initial Consult Date 08/25/18 Type of Consult SUBJECTIVE: Patient is sleepy, comfortable. Low grade fever in AM. No acute events over night. S/P right below-knee amputation 08/27/18 VS: Stable T: 99.6 LABS: Reviewed. Repeat MRI of Left foot: IMPRESSION: 1. Status post amputation of the fifth ray to the level of the proximal diaphysis of the fifth metatarsal and status post third and fourth digits amputation at the level of the MTP joints. 2. Mild reactive marrow edema at the amputation margin of the fifth metatarsal without marrow infiltrative signal to suggest osteomyelitis at this time. 3. Stress-related/reactive edema at the base of the second metatarsal noted again. Degenerative changes as above. 4. Diffuse subcutaneous edema in the dorsum of the foot and remaining toes and diffuse muscle edema. Microbiology: Blood culture on admission grew VRE susceptible to ampicillin and gram-negative rods, repeat blood cultures neg Indwelling's: Right upper extremity PICC line Antimicrobials: none at this time Physical examination: GEN: This is a well-developed well-nourished middle-aged male, who is in no distress. HENT: Head atraumatic normocephalic ;sclera nonicteric. Neck is supple. PULM: Chest rise symmetrical, breath sounds clear. Heart: S1-S2. Abdomen soft bowel sounds present. Extremities with bilateral lower extremity dressings present with purulent drainage and foul order also patient has gangrene all stools Assessment: 1. Severe sepsis, present on admission 2. Bilateral lower extremity's gangrene/osteomyelitis 3. Peripheral arterial disease 4. Diabetes 5. Acute kidney injury 6. Anemia Plan: Pt is stable. Pt has completed antbx treatment. Pending DC. Requesting Provider: GINA SUTTON MD Date/Time of Note DATE: 09/13/18 TIME: 11:51 Exam/Review of Systems Exam Vitals Vital Signs Date Temp Pulse Resp B/P (MAP) Pulse Ox O2 O2 Flow FiO2 Time Delivery Rate 09/13/18 99.6 93 18 144/87 96 08:12 (106) 09/11/18 Room Air 14:00 Intake and Output 09/12/18 09/12/18 09/13/18 1515:00 23:00 07:00 IntakeIntake Total 110 ml 1830 ml 650 ml OutputOutput Total 1000 ml 750 ml BalanceBalance 110 ml 830 ml -100 ml Results Result Diagram: 09/12/18 0509/12/18 0511 Results 24hrs Laboratory Tests Test 09/12/18 12:20 09/12/18 17:25 09/12/18 21:22 09/13/18 08:40 Bedside Glucose 172 135 150 112 Medications Medication Current Medications Ferrous Sulfate (Ferrous Sulfate (Ec)) 325 mg DAILY PO Last administered on 09/13/18 09:05; Admin Dose 325 MG; Start 08/24/18 at 09:00 Linagliptin (Tradjenta) 5 mg DAILY PO Last administered on 09/13/18 09:06; Admin Dose 5 MG; Start 08/24/18 at 09:00 Pentoxifylline (Trental) 400 mg TID PO Last administered on 09/13/18 09:06; Admin Dose 400 MG; Start 08/24/18 at 09:00 Miscellaneous Information 1 ea NOTE XX ; Start 08/24/18 at 02:30 Glucose (Glutose) 15 gm Q15M PRN PO DECREASED GLUCOSE Last administered on 09/05/18 07:57; Admin Dose 15 GM; Start 08/24/18 at 02:30 Glucose (Glutose) 22.5 gm Q15M PRN PO DECREASED GLUCOSE; Start 08/24/18 at 02:30 Dextrose (D50w Syringe) 25 ml Q15M PRN IV DECREASED GLUCOSE; Start 08/24/18 at 02:30 Dextrose (D50w Syringe) 50 ml Q15M PRN IV DECREASED GLUCOSE; Start 08/24/18 at 02:30 Glucagon (Glucagen) 1 mg Q15M PRN IM DECREASED GLUCOSE; Start 08/24/18 at 02:30 Glucose (Glutose) 15 gm Q15M PRN BUCCAL DECREASED GLUCOSE; Start 08/24/18 at 02:30 Pantoprazole (Protonix Tab) 40 mg DAILY@06 PO Last administered on 09/13/18 05:35; Admin Dose 40 MG; Start 08/24/18 at 06:00 Acetaminophen (Tylenol Tab) 650 mg Q6H PRN PO MILD PAIN(1-3)OR ELEVATED TEMP Last administered on 08/31/18at 14:03; Admin Dose 650 MG; Start 08/24/18 at 03:00 Ondansetron HCl (Zofran Inj) 4 mg Q6H PRN IV NAUSEA AND/OR VOMITING Last administered on 08/25/18 09:10; Admin Dose 4 MG; Start 08/24/18 at 03:00 Acetaminophen/ Hydrocodone Bitart ([place] (5/325)) 1 tab Q6H PRN PO MODERATE PAIN LEVEL 4-6 Last administered on 08/27/18 06:18; Admin Dose 1 TAB; Start 08/24/18 at 03:00 Miscellaneous Information (Pending Santyl Order For Wound Care) This patient mora... PRN PRN XX WOUND CARE; Start 08/24/18 at 03:00 Collagenase (Santyl) 1 applic DAILY PRN TOP PRN; Start 08/24/18 at 09:00 Insulin Aspart (Novolog Insulin Pen) NOVOLOG *MILD* ALGORITHM WITH MEALS BEDTIME SC Last administered on 09/12/18 12:22; Admin Dose 1 UNIT; Start 08/24/18 at 08:00 Diagnostic Test (Pha) (Accu-Chek) 1 ea 02 XX Last administered on 09/11/18 02:13; Admin Dose 1 EA; Start 08/26/18 at 02:00 Docusate Sodium (Colace) 100 mg BID PRN PO CONSTIPATION Last administered on 08/29/18 12:38; Admin Dose 100 MG; Start 08/28/18 at 09:00 Fluconazole (Diflucan) 100 mg DAILY PO Last administered on 09/13/18 09:05; Admin Dose 100 MG; Start 08/28/18 at 14:30 Polyethylene Glycol (Miralax) 17 gm DAILY PRN PO CONSTIPATION; Start 08/29/18 at 14:30 Amlodipine Besylate (Norvasc) 10 mg DAILY PO Last administered on 09/13/18 09:05; Admin Dose 10 MG; Start 08/31/18 at 09:00 Calcium Carbonate (Tums) 500 mg PC MEALS PO Last administered on 09/13/18 09:06; Admin Dose 500 MG; Start 08/30/18 at 13:00 Metoprolol Succinate (Toprol Xl) 12.5 mg DAILY PO Last administered on 09/13/18 09:06; Admin Dose 12.5 MG; Start 09/01/18 at 14:00 Insulin Glargine (Lantus) 10 units DAILY@2000 SC Last administered on 09/12/18at 21:24; Admin Dose 10 UNITS; Start 09/08/18 at 20:00 Ferric Sodium Gluconate Complex 125 mg/Sodium Chloride 110 ml @ 110 mls/hr DAILY@1300 IVPB Last administered on 09/12/18at 12:22; Admin Dose 110 MLS/HR; Start 09/09/18 at 15:00; Stop 09/13/18 at 13:59 Epoetin Chris-epbx (Retacrit (Non-Esrd)) 10,000 unit MoWeFr@1700 SC Last administered on 09/11/18at 17:25; Admin Dose 10,000 UNIT; Start 09/09/18 at 17:00 Sodium Chloride 1,000 ml @ 30 mls/hr Q24H IV Last administered on 09/13/18at 09:09; Admin Dose 30 MLS/HR; Start 09/11/18 at 18:00 MATIAS HASTINGS September 13, 2018 11:53
[2018-09-13] MEDS: SOD FERRIC GLUC COMPLX 125 MG in SOD CHLORIDE 0.9% 100 ML IVPB SCH (13:48)
[2018-09-13 14:47] VITALS: BP 140/87; PULSE 95; RESP 18
[2018-09-13 20:14] VITALS: BP 134/87; PULSE 97; RESP 19
[2018-09-13] MEDS: INSULIN GLARGINE [LANTus] (100 UNITS/ML) SYG SC SCH (20:25)
[2018-09-14] MEDS: ACCU-CHEK XX SCH (01:53)
[2018-09-14 02:00] VITALS: BP 150/92; PULSE 89; RESP 19
[2018-09-14] MEDS: PANTOPRAZOLE (EC) 40 MG TAB PO SCH (05:20)
[2018-09-14 08:00] VITALS: BP_SYST 141; BP_SYST 143; BP_DIAS 80; BP_DIAS 83; PULSE 91; RESP 18
[2018-09-14] MEDS: INSULIN ASPART [NOVOLOG] 3 ML PEN SC SCH ×4 (08:00→21:12)
[2018-09-14] MEDS: LINAGLIPTIN 5 MG TABLET PO SCH (08:11)
[2018-09-14] MEDS: FERROUS SULFATE (EC) 325 MG TAB PO SCH (09:14)
[2018-09-14] MEDS: PENTOXIFYLLINE (SR) 400 MG TAB PO SCH ×3 (09:14→21:10)
[2018-09-14] MEDS: FLUCONAZOLE 100 MG TAB PO SCH (09:14)
[2018-09-14] MEDS: CALCIUM CARBONATE 500 MG CHEW TAB PO SCH ×3 (09:14→18:39)
[2018-09-14] MEDS: METOPROLOL (XL) 25 MG TAB PO SCH (09:16)
[2018-09-14] MEDS: AMLODIPINE 10 MG TAB PO SCH (09:22)
--- NOTE | 2018-09-14 14:05 | CONS ---
Assessment/Plan Assessment/Plan Hospital Course (Demo Recall) Alert feels good Microbiology: Blood culture on admission grew VRE susceptible to ampicillin and gram-negative rods, repeat blood cultures neg Indwelling's: Right upper extremity PICC line Antimicrobials: none Physical examination: This is a well-developed well-nourished middle-aged Hisp anic male who is in no distress. Head atraumatic normocephalic sclera nonicteric. Neck is supple. Chest rise symmetrical, breath sounds clear. Heart: S1-S2. Abdomen soft bowel sounds present. Extremities with bilateral lower extremity dressings present with purulent drainage and foul order also patient has gangrene all stools Assessment: 1. S/p severe sepsis, present on admission 2. Bilateral lower extremity's gangrene/osteomyelitis 3. Peripheral arterial disease 4. Diabetes 5. Acute kidney injury 6. Anemia Plan: Remains stable, off abx, pending dc arrangements Consultation Date/Type/Reason Admit Date/Time Aug 23, 2018 at 21:27 Initial Consult Date 08/25/18 Type of Consult id Requesting Provider: GINA SUTTON MD Date/Time of Note DATE: 09/14/18 TIME: 14:05 Exam/Review of Systems Exam Vitals Vital Signs Date Temp Pulse Resp B/P (MAP) Pulse Ox O2 O2 Flow FiO2 Time Delivery Rate 09/14/18 98.2 91 18 141/80 98 Room Air 08:00 (100) Intake and Output 09/13/18 09/13/18 09/14/18 1515:00 23:00 07:00 IntakeIntake Total 1180 ml 940 ml 760 ml OutputOutput Total 400 ml BalanceBalance 1180 ml 540 ml 760 ml Results Result Diagram: 09/14/18 0423 09/14/18 0423 Results 24hrs Laboratory Tests Test 09/13/18 17:37 09/13/18 20:24 09/14/18 04:23 09/14/18 08:05 Bedside Glucose 118 168 84 White Blood Count 5.8 Red Blood Count 2.51 L Hemoglobin 7.5 L Hematocrit 22.6 L Mean Corpuscular 90.0 Volume Mean Corpuscular 29.9 Hemoglobin Mean Corpuscular 33.2 Hemoglobin Concent Red Cell 15.1 H Distribution Width Platelet Count 246 Mean Platelet Volume 9.2 Immature 0.700 H Granulocytes % Neutrophils % 62.7 Lymphocytes % 24.0 Monocytes % 7.6 Eosinophils % 4.5 Basophils % 0.5 Nucleated Red Blood 0.0 Cells % Immature 0.040 H Granulocytes # Neutrophils # 3.6 Lymphocytes # 1.4 Monocytes # 0.4 Eosinophils # 0.3 Basophils # 0.0 Nucleated Red Blood 0.0 Cells # Sodium Level 140 Potassium Level 3.9 Chloride Level 109 Carbon Dioxide Level 28 Anion Gap 3 L Blood Urea Nitrogen 35 H Creatinine 1.62 H Est Glomerular 45 L Filtrat Rate mL/min Glucose Level 62 #L Calcium Level 8.5 Test 09/14/18 12:02 Bedside Glucose 109 Medications Medication Current Medications Ferrous Sulfate (Ferrous Sulfate (Ec)) 325 mg DAILY PO Last administered on 09/14/18at 09:14; Admin Dose 325 MG; Start 08/24/18 at 09:00 Linagliptin (Tradjenta) 5 mg DAILY PO Last administered on 09/14/18at 08:11; Admin Dose 5 MG; Start 08/24/18 at 09:00 Pentoxifylline (Trental) 400 mg TID PO Last administered on 09/14/18at 12:38; Admin Dose 400 MG; Start 08/24/18 at 09:00 Miscellaneous Information 1 ea NOTE XX ; Start 08/24/18 at 02:30 Glucose (Glutose) 15 gm Q15M PRN PO DECREASED GLUCOSE Last administered on 09/05/18at 07:57; Admin Dose 15 GM; Start 08/24/18 at 02:30 Glucose (Glutose) 22.5 gm Q15M PRN PO DECREASED GLUCOSE; Start 08/24/18 at 02:30 Dextrose (D50w Syringe) 25 ml Q15M PRN IV DECREASED GLUCOSE; Start 08/24/18 at 02:30 Dextrose (D50w Syringe) 50 ml Q15M PRN IV DECREASED GLUCOSE; Start 08/24/18 at 02:30 Glucagon (Glucagen) 1 mg Q15M PRN IM DECREASED GLUCOSE; Start 08/24/18 at 02:30 Glucose (Glutose) 15 gm Q15M PRN BUCCAL DECREASED GLUCOSE; Start 08/24/18 at 02:30 Pantoprazole (Protonix Tab) 40 mg DAILY@06 PO Last administered on 09/14/18at 05:20; Admin Dose 40 MG; Start 08/24/18 at 06:00 Acetaminophen (Tylenol Tab) 650 mg Q6H PRN PO MILD PAIN(1-3)OR ELEVATED TEMP Last administered on 08/31/18 14:03; Admin Dose 650 MG; Start 08/24/18 at 03:00 Ondansetron HCl (Zofran Inj) 4 mg Q6H PRN IV NAUSEA AND/OR VOMITING Last administered on 08/25/18 09:10; Admin Dose 4 MG; Start 08/24/18 at 03:00 Acetaminophen/ Hydrocodone Bitart ([place] (5/325)) 1 tab Q6H PRN PO MODERATE PAIN LEVEL 4-6 Last administered on 08/27/18 06:18; Admin Dose 1 TAB; Start 08/24/18 at 03:00 Miscellaneous Information (Pending Santyl Order For Wound Care) This patient mora... PRN PRN XX WOUND CARE; Start 08/24/18 at 03:00 Collagenase (Santyl) 1 applic DAILY PRN TOP PRN Last administered on 09/14/18 09:14; Admin Dose 1 APPLIC; Start 08/24/18 at 09:00 Insulin Aspart (Novolog Insulin Pen) NOVOLOG *MILD* ALGORITHM WITH MEALS BEDTIME SC Last administered on 09/12/18 12:22; Admin Dose 1 UNIT; Start 08/24/18 at 08:00 Diagnostic Test (Pha) (Accu-Chek) 1 ea 02 XX Last administered on 09/11/18 02:13; Admin Dose 1 EA; Start 08/26/18 at 02:00 Docusate Sodium (Colace) 100 mg BID PRN PO CONSTIPATION Last administered on 08/29/18 12:38; Admin Dose 100 MG; Start 08/28/18 at 09:00 Fluconazole (Diflucan) 100 mg DAILY PO Last administered on 09/14/18 09:14; Admin Dose 100 MG; Start 08/28/18 at 14:30 Polyethylene Glycol (Miralax) 17 gm DAILY PRN PO CONSTIPATION; Start 08/29/18 at 14:30 Amlodipine Besylate (Norvasc) 10 mg DAILY PO Last administered on 09/14/18 09:22; Admin Dose 10 MG; Start 08/31/18 at 09:00 Calcium Carbonate (Tums) 500 mg PC MEALS PO Last administered on 5/20/19at 12:38; Admin Dose 500 MG; Start 08/30/18 at 13:00 Metoprolol Succinate (Toprol Xl) 12.5 mg DAILY PO Last administered on 09/14/18at 09:16; Admin Dose 12.5 MG; Start 09/01/18 at 14:00 Insulin Glargine (Lantus) 10 units DAILY@2000 SC Last administered on 09/13/18at 20:25; Admin Dose 10 UNITS; Start 09/08/18 at 20:00 Epoetin Chris-epbx (Retacrit (Non-Esrd)) 10,000 unit MoWeFr@1700 SC Last administered on 09/11/18at 17:25; Admin Dose 10,000 UNIT; Start 09/09/18 at 17:00 Sodium Chloride 1,000 ml @ 30 mls/hr Q24H IV Last administered on 09/13/18at 0 9:09; Admin Dose 30 MLS/HR; Start 09/11/18 at 18:00 ROXANNA SOMERS NP September 14, 2018 14:05
--- NOTE | 2018-09-14 16:26 | PN ---
Date/Time of Note Date/Time of Note DATE: 09/14/18 TIME: 16:26 Assessment/Plan VTE Prophylaxis Risk score (from [facility])>0 risk: 8 SCD applied (from [facility]): No SCD contraindicated: low risk/ambulating Pharmacological prophylaxis: NA/contraindicated Pharm contraindication: low risk/ambulating Lines/Catheters IV [facility]ter Type (from [facility]): PICC Line Central line still needed: Yes Urinary Cath still in place: No Assessment/Plan Hospital Course 1 septic shock secondary to right foot infection with possible soft tissue infection, necrotizing fasciitis (?). Now with gram-negative bacteremia + sp Rt BKA on 08/26/18 2. Diabetes mellitus type II, controled. 3. Acute kidney injury on chronic kidney disease. 4. Hyponatremia, resolved. 5. Hypotension,resolved 6. Right BKA 7. Anemia, likely anemia of chronic disease, no blood loss no history of GI bleeding 8 Leukocytosis 9 hypocalcemia 10 Hypokalemia Assessment/Plan - cw epogen thousand units Friday -Globin improved -- cw lantus -c/w bp meds - cw PT - gi prophylaxis is Protonix -dvt PROPHYLAXIS , unable to tolerate, anemia. client support manager to arrange for home health which is not covered,epogen not covered and snifnot covered spoketo CM working [facility] discharge Result Diagram: 09/14/18 0423 09/14/18 0423 Results 24hrs Laboratory Tests Test 09/13/18 17:37 09/13/18 20:24 09/14/18 04:23 09/14/18 08:05 Bedside Glucose 118 168 84 White Blood Count 5.8 Red Blood Count 2.51 L Hemoglobin 7.5 L Hematocrit 22.6 L Mean Corpuscular 90.0 Volume Mean Corpuscular 29.9 Hemoglobin Mean Corpuscular 33.2 Hemoglobin Concent Red Cell 15.1 H Distribution Width Platelet Count 246 Mean Platelet Volume 9.2 Immature 0.700 H Granulocytes % Neutrophils % 62.7 Lymphocytes % 24.0 Monocytes % 7.6 Eosinophils % 4.5 Basophils % 0.5 Nucleated Red Blood 0.0 Cells % Immature 0.040 H Granulocytes # Neutrophils # 3.6 Lymphocytes # 1.4 Monocytes # 0.4 Eosinophils # 0.3 Basophils # 0.0 Nucleated Red Blood 0.0 Cells # Sodium Level 140 Potassium Level 3.9 Chloride Level 109 Carbon Dioxide Level 28 Anion Gap 3 L Blood Urea Nitrogen 35 H Creatinine 1.62 H Est Glomerular 45 L Filtrat Rate mL/min Glucose Level 62 #L Calcium Level 8.5 Test 09/14/18 12:02 Bedside Glucose 109 Subjective 24 Hr Interval Summary Free Text/Dictation no acute events Exam/Review of Systems Exam Vitals Vital Signs Date Temp Pulse Resp B/P (MAP) Pulse Ox O2 O2 Flow FiO2 Time Delivery Rate 09/14/18 98.2 91 18 141/80 98 Room Air 08:00 (100) Intake and Output 09/13/18 09/13/18 09/14/18 1515:00 23:00 07:00 IntakeIntake Total 1180 ml 940 ml 760 ml OutputOutput Total 400 ml BalanceBalance 1180 ml 540 ml 760 ml Exam Constitutional: alert, oriented Cardiovascular: regular rate and rhythm Gastrointestinal: soft Musculoskeletal: muscle weakness, swelling (rBKA with clear sutures s/pamputation of 3,4 5 toes on left Results Results 24hrs Laboratory Tests Test 09/13/18 17:37 09/13/18 20:24 09/14/18 04:23 09/14/18 08:05 Bedside Glucose 118 168 84 White Blood Count 5.8 Red Blood Count 2.51 L Hemoglobin 7.5 L Hematocrit 22.6 L Mean Corpuscular 90.0 Volume Mean Corpuscular 29.9 Hemoglobin Mean Corpuscular 33.2 Hemoglobin Concent Red Cell 15.1 H Distribution Width Platelet Count 246 Mean Platelet Volume 9.2 Immature 0.700 H Granulocytes % Neutrophils % 62.7 Lymphocytes % 24.0 Monocytes % 7.6 Eosinophils % 4.5 Basophils % 0.5 Nucleated Red Blood 0.0 Cells % Immature 0.040 H Granulocytes # Neutrophils # 3.6 Lymphocytes # 1.4 Monocytes # 0.4 Eosinophils # 0.3 Basophils # 0.0 Nucleated Red Blood 0.0 Cells # Sodium Level 140 Potassium Level 3.9 Chloride Level 109 Carbon Dioxide Level 28 Anion Gap 3 L Blood Urea Nitrogen 35 H Creatinine 1.62 H Est Glomerular 45 L Filtrat Rate mL/min Glucose Level 62 #L Calcium Level 8.5 Test 09/14/18 12:02 Bedside Glucose 109 Medications Medication Current Medications Ferrous Sulfate (Ferrous Sulfate (Ec)) 325 mg DAILY PO Last administered on 09/14/18 09:14; Admin Dose 325 MG; Start 08/24/18 at 09:00 Linagliptin (Tradjenta) 5 mg DAILY PO Last administered on 09/14/18 08:11; Admin Dose 5 MG; Start 08/24/18 at 09:00 Pentoxifylline (Trental) 400 mg TID PO Last administered on 09/14/18 12:38; Admin Dose 400 MG; Start 08/24/18 at 09:00 Miscellaneous Information 1 ea NOTE XX ; Start 08/24/18 at 02:30 Glucose (Glutose) 15 gm Q15M PRN PO DECREASED GLUCOSE Last administered on 09/05/18 07:57; Admin Dose 15 GM; Start 08/24/18 at 02:30 Glucose (Glutose) 22.5 gm Q15M PRN PO DECREASED GLUCOSE; Start 08/24/18 at 02:30 Dextrose (D50w Syringe) 25 ml Q15M PRN IV DECREASED GLUCOSE; Start 08/24/18 at 02:30 Dextrose (D50w Syringe) 50 ml Q15M PRN IV DECREASED GLUCOSE; Start 08/24/18 at 02:30 Glucagon (Glucagen) 1 mg Q15M PRN IM DECREASED GLUCOSE; Start 08/24/18 at 02:30 Glucose (Glutose) 15 gm Q15M PRN BUCCAL DECREASED GLUCOSE; Start 08/24/18 at 02:30 Pantoprazole (Protonix Tab) 40 mg DAILY@06 PO Last administered on 09/14/18 05:20; Admin Dose 40 MG; Start 08/24/18 at 06:00 Acetaminophen (Tylenol Tab) 650 mg Q6H PRN PO MILD PAIN(1-3)OR ELEVATED TEMP Last administered on 08/31/18 14:03; Admin Dose 650 MG; Start 08/24/18 at 03:00 Ondansetron HCl (Zofran Inj) 4 mg Q6H PRN IV NAUSEA AND/OR VOMITING Last administered on 08/25/18 09:10; Admin Dose 4 MG; Start 08/24/18 at 03:00 Acetaminophen/ Hydrocodone Bitart ([place] (5/325)) 1 tab Q6H PRN PO MODERATE PAIN LEVEL 4-6 Last administered on 08/27/18 06:18; Admin Dose 1 TAB; Start 08/24/18 at 03:00 Miscellaneous Information (Pending Santyl Order For Wound Care) This patient mora... PRN PRN XX WOUND CARE; Start 08/24/18 at 03:00 Collagenase (Santyl) 1 applic DAILY PRN TOP PRN Last administered on 09/14/18 09:14; Admin Dose 1 APPLIC; Start 08/24/18 at 09:00 Insulin Aspart (Novolog Insulin Pen) NOVOLOG *MILD* ALGORITHM WITH MEALS BEDTIME SC Last administered on 09/12/18 12:22; Admin Dose 1 UNIT; Start at 08:00 Diagnostic Test (Pha) (Accu-Chek) 1 ea 02 XX Last administered on 09/11/18 02:13; Admin Dose 1 EA; Start 08/26/18 at 02:00 Docusate Sodium (Colace) 100 mg BID PRN PO CONSTIPATION Last administered on 08/29/18 12:38; Admin Dose 100 MG; Start 08/28/18 at 09:00 Fluconazole (Diflucan) 100 mg DAILY PO Last administered on 09/14/18 09:14; Admin Dose 100 MG; Start 08/28/18 at 14:30 Polyethylene Glycol (Miralax) 17 gm DAILY PRN PO CONSTIPATION; Start 08/29/18 at 14:30 Amlodipine Besylate (Norvasc) 10 mg DAILY PO Last administered on 09/14/18 09:22; Admin Dose 10 MG; Start 08/31/18 at 09:00 Calcium Carbonate (Tums) 500 mg PC MEALS PO Last administered on 09/14/18 12:38; Admin Dose 500 MG; Start 08/30/18 at 13:00 Metoprolol Succinate (Toprol Xl) 12.5 mg DAILY PO Last administered on 09/14/18 09:16; Admin Dose 12.5 MG; Start 09/01/18 at 14:00 Insulin Glargine (Lantus) 10 units DAILY@2000 SC Last administered on 09/13/18 20:25; Admin Dose 10 UNITS; Start 09/08/18 at 20:00 Epoetin Chris-epbx (Retacrit (Non-Esrd)) 10,000 unit MoWeFr@1700 SC Last administered on 09/11/18 17:25; Admin Dose 10,000 UNIT; Start 09/09/18 at 17:00 Sodium Chloride 1,000 ml @ 30 mls/hr Q24H IV Last administered on 09/13/18at 09:09; Admin Dose 30 MLS/HR; Start 09/11/18 at 18:00 GINA SUTTON MD September 14, 2018 16:26
[2018-09-14] MEDS: SOD CHLORIDE 0.9% 1,000 ML IV SCH (17:11)
[2018-09-14] MEDS: EPOETIN ALFA-EPBX (NON-ESRD 10,000 UNIT/ML VIAL SC SCH (17:15)
[2018-09-14 20:00] VITALS: BP 131/85; PULSE 95; RESP 18
[2018-09-14] MEDS: INSULIN GLARGINE [LANTus] (100 UNITS/ML) SYG SC SCH (21:12)
[2018-09-15 01:48] VITALS: BP 140/87; PULSE 87; RESP 20
[2018-09-15] MEDS: ACCU-CHEK XX SCH (02:00)
[2018-09-15] MEDS: PANTOPRAZOLE (EC) 40 MG TAB PO SCH (05:29)
[2018-09-15] MEDS: INSULIN ASPART [NOVOLOG] 3 ML PEN SC SCH ×4 (07:53→21:00)
[2018-09-15 08:00] VITALS: BP 143/87; PULSE 89; RESP 18
[2018-09-15] MEDS: CALCIUM CARBONATE 500 MG CHEW TAB PO SCH ×3 (08:32→19:05)
[2018-09-15] MEDS: LINAGLIPTIN 5 MG TABLET PO SCH (08:32)
[2018-09-15] MEDS: FERROUS SULFATE (EC) 325 MG TAB PO SCH (08:32)
[2018-09-15] MEDS: FLUCONAZOLE 100 MG TAB PO SCH (08:33)
[2018-09-15] MEDS: AMLODIPINE 10 MG TAB PO SCH (08:33)
[2018-09-15] MEDS: METOPROLOL (XL) 25 MG TAB PO SCH (08:33)
[2018-09-15] MEDS: PENTOXIFYLLINE (SR) 400 MG TAB PO SCH ×3 (08:33→21:40)
--- NOTE | 2018-09-15 13:08 | CONS ---
Assessment/Plan Assessment/Plan Hospital Course (Demo Recall) All noted, no acute events Microbiology: Blood culture on admission grew VRE susceptible to ampicillin and gram-negative rods, repeat blood cultures neg Indwelling's: Right upper extremity PICC line Antimicrobials: none Physical examination: This is a well-developed well-nourished middle-aged male who is in no distress. Head atraumatic normocephalic sclera nonicteric. Neck is supple. Chest rise symmetrical, breath sounds clear. Heart: S1-S2. Abdomen soft bowel sounds present. Extremities with bilateral lower extremity dressings present with purulent drainage and foul order also patient has gangrene all stools Assessment: 1. S/p severe sepsis, present on admission 2. Bilateral lower extremity's gangrene/osteomyelitis 3. Peripheral arterial disease 4. Diabetes 5. Acute kidney injury 6. Anemia Plan: Remains stable, off abx, pending dc arrangements Consultation Date/Type/Reason Admit Date/Time Aug 23, 2018 at 21:27 Initial Consult Date 08/25/18 Type of Consult id Requesting Provider: GINA SUTTON MD Date/Time of Note DATE: 09/15/18 TIME: 13:06 Exam/Review of Systems Exam Vitals Vital Signs Date Temp Pulse Resp B/P (MAP) Pulse Ox O2 O2 Flow FiO2 Time Delivery Rate 09/15/18 98.0 89 18 143/87 97 Room Air 08:00 (105) Intake and Output 09/14/18 09/14/18 09/15/18 1515:00 23:00 07:00 IntakeIntake Total 240 ml 1200 ml 900 ml OutputOutput Total 500 ml 1200 ml 800 ml BalanceBalance -260 ml 0 ml 100 ml Results Result Diagram: 09/14/18 0423 09/14/18 0423 Results 24hrs Laboratory Tests Test 09/14/18 17:17 09/14/18 21:09 09/15/18 02:47 09/15/18 07:52 Bedside Glucose 182 194 86 104 Test 09/15/18 11:59 Bedside Glucose 165 Medications Medication Current Medications Ferrous Sulfate (Ferrous Sulfate (Ec)) 325 mg DAILY PO Last administered on 09/15/18at 08:32; Admin Dose 325 MG; Start 08/24/18 at 09:00 Linagliptin (Tradjenta) 5 mg DAILY PO Last administered on 09/15/18 08:32; Admin Dose 5 MG; Start 08/24/18 at 09:00 Pentoxifylline (Trental) 400 mg TID PO Last administered on 09/15/18 12:51; Ad min Dose 400 MG; Start 08/24/18 at 09:00 Miscellaneous Information 1 ea NOTE XX ; Start 08/24/18 at 02:30 Glucose (Glutose) 15 gm Q15M PRN PO DECREASED GLUCOSE Last administered on 09/05/18at 07:57; Admin Dose 15 GM; Start 08/24/18 at 02:30 Glucose (Glutose) 22.5 gm Q15M PRN PO DECREASED GLUCOSE; Start 08/24/18 at 02:30 Dextrose (D50w Syringe) 25 ml Q15M PRN IV DECREASED GLUCOSE; Start 08/24/18 at 02:30 Dextrose (D50w Syringe) 50 ml Q15M PRN IV DECREASED GLUCOSE; Start 08/24/18 at 02:30 Glucagon (Glucagen) 1 mg Q15M PRN IM DECREASED GLUCOSE; Start 08/24/18 at 02:30 Glucose (Glutose) 15 gm Q15M PRN BUCCAL DECREASED GLUCOSE; Start 08/24/18 at 02:30 Pantoprazole (Protonix Tab) 40 mg DAILY@06 PO Last administered on 09/15/18 05:29; Admin Dose 40 MG; Start 08/24/18 at 06:00 Acetaminophen (Tylenol Tab) 650 mg Q6H PRN PO MILD PAIN(1-3)OR ELEVATED TEMP Last administered on 08/31/18 14:03; Admin Dose 650 MG; Start 08/24/18 at 03:00 Ondansetron HCl (Zofran Inj) 4 mg Q6H PRN IV NAUSEA AND/OR VOMITING Last administered on 08/25/18 09:10; Admin Dose 4 MG; Start 08/24/18 at 03:00 Acetaminophen/ Hydrocodone Bitart ([place] (5/325)) 1 tab Q6H PRN PO MODERATE PAIN LEVEL 4-6 Last administered on 08/27/18 06:18; Admin Dose 1 TAB; Start 08/24/18 at 03:00 Miscellaneous Information (Pending [facility] Order For Wound Care) This patient mora... PRN PRN XX WOUND CARE; Start 08/24/18 at 03:00 Collagenase (Santyl) 1 applic DAILY PRN TOP PRN Last administered on 09/14/18 09:14; Admin Dose 1 APPLIC; Start 08/24/18 at 09:00 Insulin Aspart (Novolog Insulin Pen) NOVOLOG *MILD* ALGORITHM WITH MEALS BEDTIME SC Last administered on 09/15/18 12:03; Admin Dose 1 UNIT; Start 08/24/18 at 08:00 Diagnostic Test (Pha) (Accu-Chek) 1 ea 02 XX Last administered on 09/11/18 02:13; Admin Dose 1 EA; Start 08/26/18 at 02:00 Docusate Sodium (Colace) 100 mg BID PRN PO CONSTIPATION Last administered on 08/29/18 12:38; Admin Dose 100 MG; Start 08/28/18 at 09:00 Fluconazole (Diflucan) 100 mg DAILY PO Last administered on 09/15/18 08:33; Admin Dose 100 MG; Start 08/28/18 at 14:30 Polyethylene Glycol (Miralax) 17 gm DAILY PRN PO CONSTIPATION; Start 08/29/18 at 14:30 Amlodipine Besylate (Norvasc) 10 mg DAILY PO Last administered on 09/15/18 08:33; Admin Dose 10 MG; Start 08/31/18 at 09:00 Calcium Carbonate (Tums) 500 mg PC MEALS PO Last administered on 09/15/18 12:51; Admin Dose 500 MG; Start 08/30/18 at 13:00 Metoprolol Succinate (Toprol Xl) 12.5 mg DAILY PO Last administered on 09/15/18 08:33; Admin Dose 12.5 MG; Start 09/01/18 at 14:00 Insulin Glargine (Lantus) 10 units DAILY@2000 SC Last administered on 09/14/18 21:12; Admin Dose 10 UNITS; Start 09/08/18 at 20:00 Epoetin Chris-epbx (Retacrit (Non-Esrd)) 10,000 unit MoWeFr@1700 SC Last administered on 09/14/18 17:15; Admin Dose 10,000 UNIT; Start 09/09/18 at 17:00 ROXANNA SOMERS NP September 15, 2018 13:07
[2018-09-15 14:00] VITALS: BP 144/89; PULSE 88; RESP 18
--- NOTE | 2018-09-15 15:05 | PN ---
Date/Time of Note Date/Time of Note DATE: 09/15/18 TIME: 15:00 Assessment/Plan VTE Prophylaxis Risk score (from [facility])>0 risk: 1 SCD applied (from [facility]): No SCD contraindicated: low risk/ambulating Pharmacological prophylaxis: NA/contraindicated Pharm contraindication: low risk/ambulating Lines/Catheters IV [facility]from [facility] [place] Urinary Cath still in place: No Assessment/Plan Hospital Course 1 septic shock secondary to right foot infection with possible soft tissue infection, necrotizing fasciitis (?). Now with gram-negative bacteremia + sp Rt BKA on 08/26/18 resolved 2. Diabetes mellitus type II, controled. 3. Acute kidney injury on chronic kidney disease. CKD stable 4. Hyponatremia, resolved. 5. Hypotension,resolved 6. Right BKA 7. Anemia, likely anemia of chronic disease, no blood loss no history of GI bleeding 8 Leukocytosis resolved 9 hypocalcemia 10 Hypokalemia Assessment/Plan - cw epogen thousand units Friday - HB 7.5 -- cw lantus - iv lasix for edema - dc diflucan -c/w bp meds - cw PT - gi prophylaxis is Protonix -dvt PROPHYLAXIS , unable to tolerate, anemia. lead case manager to arrange for home health which is not covered,epogen not covered and snifnot covered epogen : will recheck ferritin/ fe michele, auth form had been filled [facility]alt being called spoke to lynda boucehr multiple times > working on safe dc Result Diagram: 09/14/18 0423 09/14/18 0423 Results 24hrs Laboratory Tests Test 09/14/18 17:17 09/14/18 21:09 09/15/18 02:47 09/15/18 07:52 Bedside Glucose 182 194 86 104 Test 09/15/18 11:59 Bedside Glucose 165 Subjective 24 Hr Interval Summary Free Text/Dictation spoke to CM barriers in dc epogwn not covered home health not covered Exam/Review of Systems Exam Vitals Vital Signs Date Temp Pulse Resp B/P (MAP) Pulse Ox O2 O2 Flow FiO2 Time Delivery Rate 09/15/18 98.0 89 18 143/87 97 Room Air 08:00 (105) Intake and Output 09/14/18 09/14/18 09/15/18 1515:00 23:00 07:00 IntakeIntake Total 240 ml 1200 ml 900 ml OutputOutput Total 500 ml 1200 ml 800 ml BalanceBalance -260 ml 0 ml 100 ml Exam Constitutional: alert, oriented Cardiovascular: regular rate and rhythm Gastrointestinal: soft Musculoskeletal: muscle weakness, swelling (rBKA with clear sutures s/pamputation of 3,4 5 toes on left Results Results 24hrs Laboratory Tests Test 09/14/18 17:17 09/14/18 21:09 09/15/18 02:47 09/15/18 07:52 Bedside Glucose 182 194 86 104 Test 09/15/18 11:59 Bedside Glucose 165 Medications Medication Current Medications Ferrous Sulfate (Ferrous Sulfate (Ec)) 325 mg DAILY PO Last administered on 09/15/18at 08:32; Admin Dose 325 MG; Start 08/24/18 at 09:00 Linagliptin (Tradjenta) 5 mg DAILY PO Last administered on 09/15/18at 08:32; Admin Dose 5 MG; Start 08/24/18 at 09:00 Pentoxifylline (Trental) 400 mg TID PO Last administered on 09/15/18at 12:51; Admin Dose 400 MG; Start 08/24/18 at 09:00 Miscellaneous Information 1 ea NOTE XX ; Start 08/24/18 at 02:30 Glucose (Glutose) 15 gm Q15M PRN PO DECREASED GLUCOSE Last administered on 09/05/18at 07:57; Admin Dose 15 GM; Start 08/24/18 at 02:30 Glucose (Glutose) 22.5 gm Q15M PRN PO DECREASED GLUCOSE; Start 08/24/18 at 02:30 Dextrose (D50w Syringe) 25 ml Q15M PRN IV DECREASED GLUCOSE; Start 08/24/18 at 02:30 Dextrose (D50w Syringe) 50 ml Q15M PRN IV DECREASED GLUCOSE; Start 08/24/18 at 02:30 Glucagon (Glucagen) 1 mg Q15M PRN IM DECREASED GLUCOSE; Start 08/24/18 at 02:30 Glucose (Glutose) 15 gm Q15M PRN BUCCAL DECREASED GLUCOSE; Start 08/24/18 at 02:30 Pantoprazole (Protonix Tab) 40 mg DAILY@06 PO Last administered on 09/15/18at 05:29; Admin Dose 40 MG; Start 08/24/18 at 06:00 Acetaminophen (Tylenol Tab) 650 mg Q6H PRN PO MILD PAIN(1-3)OR ELEVATED TEMP Last administered on 08/31/18 14:03; Admin Dose 650 MG; Start 08/24/18 at 03:00 Ondansetron HCl (Zofran Inj) 4 mg Q6H PRN IV NAUSEA AND/OR VOMITING Last administered on 08/25/18 09:10; Admin Dose 4 MG; Start 08/24/18 at 03:00 Acetaminophen/ Hydrocodone Bitart ([place] (5/325)) 1 tab Q6H PRN PO MODERATE PAIN LEVEL 4-6 Last administered on 08/27/18 06:18; Admin Dose 1 TAB; Start 08/24/18 at 03:00 Miscellaneous Information (Pending Santyl Order For Wound Care) This patient mora... PRN PRN XX WOUND CARE; Start 08/24/18 at 03:00 Collagenase (Santyl) 1 applic DAILY PRN TOP PRN Last administered on 09/14/18 09:14; Admin Dose 1 APPLIC; Start 08/24/18 at 09:00 Insulin Aspart (Novolog Insulin Pen) NOVOLOG *MILD* ALGORITHM WITH MEALS BEDTIME SC Last administered on 09/15/18 12:03; Admin Dose 1 UNIT; Start 08/24/18 at 08:00 Diagnostic Test (Pha) (Accu-Chek) 1 ea 02 XX Last administered on 09/11/18 02:13; Admin Dose 1 EA; Start 08/26/18 at 02:00 Docusate Sodium (Colace) 100 mg BID PRN PO CONSTIPATION Last administered on 08/29/18 12:38; Admin Dose 100 MG; Start 08/28/18 at 09:00 Polyethylene Glycol (Miralax) 17 gm DAILY PRN PO CONSTIPATION; Start 08/29/18 at 14:30 Amlodipine Besylate (Norvasc) 10 mg DAILY PO Last administered on 09/15/18 08:33; Admin Dose 10 MG; Start 08/31/18 at 09:00 Calcium Carbonate (Tums) 500 mg PC MEALS PO Last administered on 09/15/18 12:51; Admin Dose 500 MG; Start 08/30/18 at 13:00 Metoprolol Succinate (Toprol Xl) 12.5 mg DAILY PO Last administered on 5/21/19at 08:33; Admin Dose 12.5 MG; Start 09/01/18 at 14:00 Insulin Glargine (Lantus) 10 units DAILY@2000 SC Last administered on 09/14/18at 21:12; Admin Dose 10 UNITS; Start 09/08/18 at 20:00 Epoetin Chris-epbx (Retacrit (Non-Esrd)) 10,000 unit MoWeFr@1700 SC Last administered on 09/14/18at 17:15; Admin Dose 10,000 UNIT; Start 09/09/18 at 17:00 GINA SUTTON MD September 15, 2018 15:05
[2018-09-15] MEDS: FUROSEMIDE 20 MG INJ IV SCH (16:28)
[2018-09-15 20:00] VITALS: BP 129/77; PULSE 96; RESP 18
[2018-09-15] MEDS: INSULIN GLARGINE [LANTus] (100 UNITS/ML) SYG SC SCH (21:42)
[2018-09-15] MEDS ORDERED: ALTEPLASE (CATHFLO) 2 MG INJ CATHETER ONE (22:00)
[2018-09-16 02:00] VITALS: BP 125/76; PULSE 88; RESP 17
[2018-09-16] MEDS: ACCU-CHEK XX SCH (02:00)
[2018-09-16] MEDS: PANTOPRAZOLE (EC) 40 MG TAB PO SCH (05:54)
[2018-09-16 07:25] VITALS: BP 136/79; PULSE 86; RESP 16
[2018-09-16] MEDS: LINAGLIPTIN 5 MG TABLET PO SCH (07:52)
[2018-09-16] MEDS: INSULIN ASPART [NOVOLOG] 3 ML PEN SC SCH ×4 (07:52→20:51)
[2018-09-16] MEDS: FUROSEMIDE 20 MG INJ IV SCH (09:17)
[2018-09-16] MEDS: FERROUS SULFATE (EC) 325 MG TAB PO SCH (09:17)
[2018-09-16] MEDS: AMLODIPINE 10 MG TAB PO SCH (09:17)
[2018-09-16] MEDS: PENTOXIFYLLINE (SR) 400 MG TAB PO SCH ×3 (09:18→20:49)
[2018-09-16] MEDS: METOPROLOL (XL) 25 MG TAB PO SCH (09:18)
[2018-09-16] MEDS: CALCIUM CARBONATE 500 MG CHEW TAB PO SCH ×3 (09:18→19:05)
--- NOTE | 2018-09-16 10:44 | PN ---
Date/Time of Note Date/Time of Note DATE: 09/16/18 TIME: 10:43 Assessment/Plan VTE Prophylaxis Risk score (from Ns)>0 risk: 5 SCD applied (from [facility] [place]): No SCD contraindicated: low risk/ambulating Pharmacological prophylaxis: NA/contraindicated Pharm contraindication: low risk/ambulating Lines/Catheters IV C[facility]ter Type (from [facility] PICC Line Central line still needed: Yes Urinary Cath still in place: No Assessment/Plan Hospital Course 1 septic shock secondary to right foot infection with possible soft tissue infection, necrotizing fasciitis (?). Now with gram-negative bacteremia + sp Rt BKA on 08/26/18 resolved 2. Diabetes mellitus type II, controled. 3. Acute kidney injury on chronic kidney disease. CKD stable 4. Hyponatremia, resolved. 5. Hypotension,resolved 6. Right BKA 7. Anemia, likely anemia of chronic disease, no blood loss no history of GI bleeding 8 Leukocytosis resolved 9 hypocalcemia 10 Hypokalemia Assessment/Plan - cw epogen thousand units Friday - HB 7.5 -- cw lantus - iv lasix for edema -c/w bp meds - cw PT - gi prophylaxis is Protonix -dvt PROPHYLAXIS , unable to tolerate, anemia. 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 arrange for home health which is not covered,epogen not covered and snif not covered epogen : will recheck ferritin/ fe michele, auth form had been filled [facility] being called spoke to lynda boucher multiple times > working on safe dc DC today Result Diagram: 09/14/18 0423 09/14/18 0423 Results 24hrs Laboratory Tests Test 09/15/18 11:59 09/15/18 15:32 09/15/18 17:35 09/15/18 21:38 Bedside Glucose 165 132 130 Absolute 0.146 H Reticulocyte Count Percent Reticulocyte 5.6 H Count Ferritin 1210.0 H Test 09/16/18 07:51 Bedside Glucose 105 Subjective 24 Hr Interval Summary Free Text/Dictation doing well Exam/Review of Systems Exam Vitals Vital Signs Date Temp Pulse Resp B/P (MAP) Pulse Ox O2 O2 Flow FiO2 Time Delivery Rate 09/16/18 98.6 86 16 136/79 96 Room Air 07:25 (98) Intake and Output 09/15/18 09/15/18 09/16/18 1515:00 23:00 07:00 IntakeIntake Total 800 ml OutputOutput Total 1000 ml 600 ml 1626 ml BalanceBalance -200 ml -600 ml -1626 ml Exam Constitutional: alert, oriented Cardiovascular: regular rate and rhythm Gastrointestinal: soft Musculoskeletal: muscle weakness, swelling (rBKA with clear sutures s/pamputation of 3,4 5 toes on left Results Results 24hrs Laboratory Tests Test 09/15/18 11:59 09/15/18 15:32 09/15/18 17:35 09/15/18 21:38 Bedside Glucose 165 132 130 Absolute 0.146 H Reticulocyte Count Percent Reticulocyte 5.6 H Count Ferritin 1210.0 H Test 09/16/18 07:51 Bedside Glucose 105 Medications Medication Current Medications Ferrous Sulfate (Ferrous Sulfate (Ec)) 325 mg DAILY PO Last administered on 09/16/18at 09:17; Admin Dose 325 MG; Start 08/24/18 at 09:00 Linagliptin (Tradjenta) 5 mg DAILY PO Last administered on 09/16/18at 07:52; Admin Dose 5 MG; Start 08/24/18 at 09:00 Pentoxifylline (Trental) 400 mg TID PO Last administered on 09/16/18at 09:18; Admin Dose 400 MG; Start 08/24/18 at 09:00 Miscellaneous Information 1 ea NOTE XX ; Start 08/24/18 at 02:30 Glucose (Glutose) 15 gm Q15M PRN PO DECREASED GLUCOSE Last administered on 09/05/18at 07:57; Admin Dose 15 GM; Start 08/24/18 at 02:30 Glucose (Glutose) 22.5 gm Q15M PRN PO DECREASED GLUCOSE; Start 08/24/18 at 02:30 Dextrose (D50w Syringe) 25 ml Q15M PRN IV DECREASED GLUCOSE; Start 08/24/18 at 02:30 Dextrose (D50w Syringe) 50 ml Q15M PRN IV DECREASED GLUCOSE; Start 08/24/18 at 02:30 Glucagon (Glucagen) 1 mg Q15M PRN IM DECREASED GLUCOSE; Start 08/24/18 at 02:30 Glucose (Glutose) 15 gm Q15M PRN BUCCAL DECREASED GLUCOSE; Start 08/24/18 at 02:30 Pantoprazole (Protonix Tab) 40 mg DAILY@06 PO Last administered on 09/16/18 05:54; Admin Dose 40 MG; Start 08/24/18 at 06:00 Acetaminophen (Tylenol Tab) 650 mg Q6H PRN PO MILD PAIN(1-3)OR ELEVATED TEMP Last administered on 08/31/18 14:03; Admin Dose 650 MG; Start 08/24/18 at 03:00 Ondansetron HCl (Zofran Inj) 4 mg Q6H PRN IV NAUSEA AND/OR VOMITING Last admi nistered on 08/25/18 09:10; Admin Dose 4 MG; Start 08/24/18 at 03:00 Acetaminophen/ Hydrocodone Bitart ([place] (5/325)) 1 tab Q6H PRN PO MODERATE PAIN LEVEL 4-6 Last administered on 08/27/18 06:18; Admin Dose 1 TAB; Start 08/24/18 at 03:00 Miscellaneous Information (Pending Santyl Order For Wound Care) This patient mora... PRN PRN XX WOUND CARE; Start 08/24/18 at 03:00 Collagenase (Santyl) 1 applic DAILY PRN TOP PRN Last administered on 09/14/18 09:14; Admin Dose 1 APPLIC; Start 08/24/18 at 09:00 Insulin Aspart (Novolog Insulin Pen) NOVOLOG *MILD* ALGORITHM WITH MEALS BEDTIME SC Last administered on 09/15/18 12:03; Admin Dose 1 UNIT; Start 08/24/18 at 08:00 Diagnostic Test (Pha) (Accu-Chek) 1 ea 02 XX Last administered on 09/11/18 02:13; Admin Dose 1 EA; Start 08/26/18 at 02:00 Docusate Sodium (Colace) 100 mg BID PRN PO CONSTIPATION Last administered on 08/29/18 12:38; Admin Dose 100 MG; Start 08/28/18 at 09:00 Polyethylene Glycol (Miralax) 17 gm DAILY PRN PO CONSTIPATION; Start 08/29/18 at 14:30 Amlodipine Besylate (Norvasc) 10 mg DAILY PO Last administered on 09/16/18 09:17; Admin Dose 10 MG; Start 08/31/18 at 09:00 Calcium Carbonate (Tums) 500 mg PC MEALS PO Last administered on 09/16/18 09:18; Admin Dose 500 MG; Start 08/30/18 at 13:00 Metoprolol Succinate (Toprol Xl) 12.5 mg DAILY PO Last administered on 09/16/18at 09:18; Admin Dose 12.5 MG; Start 09/01/18 at 14:00 Insulin Glargine (Lantus) 10 units DAILY@2000 SC Last administered on 09/15/18at 21:42; Admin Dose 10 UNITS; Start 09/08/18 at 20:00 Epoetin Chris-epbx (Retacrit (Non-Esrd)) 10,000 unit MoWeFr@1700 SC Last administered on 09/14/18at 17:15; Admin Dose 10,000 UNIT; Start 09/09/18 at 17:00 Furosemide (Lasix) 20 mg DAILY IV Last administered on 09/16/18at 09:17; Admin Dose 20 MG; Start 09/15/18 at 15:00 GINA SUTTON MD September 16, 2018 10:44
--- NOTE | 2018-09-16 10:46 | PDOCDIS ---
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
[2018-09-16] MEDS ORDERED: METO-335 PO (10:49)
[2018-09-16] MEDS ORDERED: Epoetin Alfa-Epbx (Non-Esrd) SC (10:49)
[2018-09-16] MEDS ORDERED: FER325 PO (10:49)
[2018-09-16] MEDS ORDERED: Insulin Glargine SC (10:49)
[2018-09-16 14:05] VITALS: BP 137/82; PULSE 89; RESP 16
--- NOTE | 2018-09-16 15:23 | CONS ---
Assessment/Plan Assessment/Plan Hospital Course (Demo Recall) Alert, feels good, no fevers, right stump looks okay Microbiology: Blood culture on admission grew VRE susceptible to ampicillin and gram-negative rods, repeat blood cultures neg Indwelling's: Right upper extremity PICC line Antimicrobials: none Physical examination: This is a well-developed well-nourished middle-aged male who is in no distress. Head atraumatic normocephalic sclera nonicteric. Neck is supple. Chest rise symmetrical, breath sounds clear. Heart: S1-S2. Abdomen soft bowel sounds present. Extremities with bilateral lower extremity dressings present with purulent drainage and foul order also patient has gangrene all stools Assessment: 1. S/p severe sepsis, present on admission 2. Bilateral lower extremity's gangrene/osteomyelitis 3. Peripheral arterial disease 4. Diabetes 5. Acute kidney injury 6. Anemia Plan: Remains stable, off abx, pending dc arrangements Consultation Date/Type/Reason Admit Date/Time Aug 23, 2018 at 21:27 Initial Consult Date 08/25/18 Type of Consult id Requesting Provider: GINA SUTTON MD Date/Time of Note DATE: 09/16/18 TIME: 15:22 Exam/Review of Systems Exam Vitals Vital Signs Date Temp Pulse Resp B/P (MAP) Pulse Ox O2 O2 Flow FiO2 Time Delivery Rate 09/16/18 98.2 89 16 137/82 99 Room Air 14:05 (100) Intake and Output 09/15/18 09/15/18 09/16/18 1515:00 23:00 07:00 IntakeIntake Total 800 ml OutputOutput Total 1000 ml 600 ml 1626 ml BalanceBalance -200 ml -600 ml -1626 ml Results Result Diagram: 09/14/18 0423 09/14/18 0423 Results 24hrs Laboratory Tests Test 09/15/18 15:32 09/15/18 17:35 09/15/18 21:38 09/16/18 07:51 Absolute 0.146 H Reticulocyte Count Percent Reticulocyte 5.6 H Count Ferritin 1210.0 H Bedside Glucose 132 130 105 Test 09/16/18 12:30 Bedside Glucose 136 Medications Medication Current Medications Ferrous Sulfate (Ferrous Sulfate (Ec)) 325 mg DAILY PO Last administered on 09/16/18at 09:17; Admin Dose 325 MG; Start 08/24/18 at 09:00 Linagliptin (Tradjenta) 5 mg DAILY PO Last administered on 09/16/18at 07:52; A dmin Dose 5 MG; Start 08/24/18 at 09:00 Pentoxifylline (Trental) 400 mg TID PO Last administered on 09/16/18at 12:34; Admin Dose 400 MG; Start 08/24/18 at 09:00 Miscellaneous Information 1 ea NOTE XX ; Start 08/24/18 at 02:30 Glucose (Glutose) 15 gm Q15M PRN PO DECREASED GLUCOSE Last administered on 09/05/18at 07:57; Admin Dose 15 GM; Start 08/24/18 at 02:30 Glucose (Glutose) 22.5 gm Q15M PRN PO DECREASED GLUCOSE; Start 08/24/18 at 02:30 Dextrose (D50w Syringe) 25 ml Q15M PRN IV DECREASED GLUCOSE; Start 08/24/18 at 02:30 Dextrose (D50w Syringe) 50 ml Q15M PRN IV DECREASED GLUCOSE; Start 08/24/18 at 02:30 Glucagon (Glucagen) 1 mg Q15M PRN IM DECREASED GLUCOSE; Start 08/24/18 at 02:30 Glucose (Glutose) 15 gm Q15M PRN BUCCAL DECREASED GLUCOSE; Start 08/24/18 at 02:30 Pantoprazole (Protonix Tab) 40 mg DAILY@06 PO Last administered on 09/16/18at 05:54; Admin Dose 40 MG; Start 08/24/18 at 06:00 Acetaminophen (Tylenol Tab) 650 mg Q6H PRN PO MILD PAIN(1-3)OR ELEVATED TEMP Last administered on 08/31/18at 14:03; Admin Dose 650 MG; Start 08/24/18 at 03:00 Ondansetron HCl (Zofran Inj) 4 mg Q6H PRN IV NAUSEA AND/OR VOMITING Last administered on 08/25/18at 09:10; Admin Dose 4 MG; Start 08/24/18 at 03:00 Acetaminophen/ Hydrocodone Bitart ([place] (5/325)) 1 tab Q6H PRN PO MODERATE PAIN LEVEL 4-6 Last administered on 08/27/18 06:18; Admin Dose 1 TAB; Start 08/24/18 at 03:00 Miscellaneous Information (Pending Santyl Order For Wound Care) This patient mora... PRN PRN XX WOUND CARE; Start 08/24/18 at 03:00 Collagenase (Santyl) 1 applic DAILY PRN TOP PRN Last administered on 09/14/18 09:14; Admin Dose 1 APPLIC; Start 08/24/18 at 09:00 Insulin Aspart (Novolog Insulin Pen) NOVOLOG *MILD* ALGORITHM WITH MEALS BEDTIME SC Last administered on 09/15/18 12:03; Admin Dose 1 UNIT; Start 07/28 01/14 at 08:00 Diagnostic Test (Pha) (Accu-Chek) 1 ea 02 XX Last administered on 09/11/18 02:13; Admin Dose 1 EA; Start 08/26/18 at 02:00 Docusate Sodium (Colace) 100 mg BID PRN PO CONSTIPATION Last administered on 08/29/18 12:38; Admin Dose 100 MG; Start 08/28/18 at 09:00 Polyethylene Glycol (Miralax) 17 gm DAILY PRN PO CONSTIPATION; Start 08/29/18 at 14:30 Amlodipine Besylate (Norvasc) 10 mg DAILY PO Last administered on 09/16/18 09:17; Admin Dose 10 MG; Start 08/31/18 at 09:00 Calcium Carbonate (Tums) 500 mg PC MEALS PO Last administered on 09/16/18 12:34; Admin Dose 500 MG; Start 08/30/18 at 13:00 Metoprolol Succinate (Toprol Xl) 12.5 mg DAILY PO Last administered on 09/16/18 09:18; Admin Dose 12.5 MG; Start 09/01/18 at 14:00 Insulin Glargine (Lantus) 10 units DAILY@2000 SC Last administered on 09/15/18 21:42; Admin Dose 10 UNITS; Start 09/08/18 at 20:00 Epoetin Chris-epbx (Retacrit (Non-Esrd)) 10,000 unit MoWeFr@1700 SC Last administered on 09/14/18 17:15; Admin Dose 10,000 UNIT; Start 09/09/18 at 17:00 Furosemide (Lasix) 20 mg DAILY IV Last administered on 09/16/18 09:17; Admin Dose 20 MG; Start 09/15/18 at 15:00 ROXANNA SOMERS NP September 16, 2018 15:23
[2018-09-16] MEDS: EPOETIN ALFA-EPBX (NON-ESRD 10,000 UNIT/ML VIAL SC SCH (17:12)
[2018-09-16 20:00] VITALS: BP 139/90; PULSE 93; RESP 18
[2018-09-16] MEDS: INSULIN GLARGINE [LANTus] (100 UNITS/ML) SYG SC SCH (20:51)
[2018-09-17 02:00] VITALS: BP 140/82; PULSE 83; RESP 19
[2018-09-17] MEDS: ACCU-CHEK XX SCH (02:00)
[2018-09-17] MEDS: PANTOPRAZOLE (EC) 40 MG TAB PO SCH (05:29)
[2018-09-17] MEDS: INSULIN ASPART [NOVOLOG] 3 ML PEN SC SCH ×3 (07:47→17:33)
[2018-09-17 08:00] VITALS: BP 146/84; PULSE 76; RESP 20
[2018-09-17] MEDS: CALCIUM CARBONATE 500 MG CHEW TAB PO SCH ×3 (09:11→18:14)
[2018-09-17] MEDS: METOPROLOL (XL) 25 MG TAB PO SCH (09:12)
[2018-09-17] MEDS: AMLODIPINE 10 MG TAB PO SCH (09:12)
[2018-09-17] MEDS: LINAGLIPTIN 5 MG TABLET PO SCH (09:12)
[2018-09-17] MEDS: FERROUS SULFATE (EC) 325 MG TAB PO SCH (09:12)
[2018-09-17] MEDS: PENTOXIFYLLINE (SR) 400 MG TAB PO SCH ×2 (09:12→13:14)
[2018-09-17] MEDS: FUROSEMIDE 20 MG INJ IV SCH (09:16)
--- NOTE | 2018-09-17 11:10 | PN ---
Date/Time of Note Date/Time of Note DATE: 09/17/18 TIME: 11:07 Assessment/Plan VTE Prophylaxis Risk score (from Ns)>0 risk: 5 SCD applied (from [facility]): No SCD contraindicated: bilateral amputee Pharmacological prophylaxis: NA/contraindicated Pharm contraindication: anticoag not tolerated Lines/Catheters [facility] Type (from [facility] PICC Line Central line still needed: Yes Urinary Cath still in place: No Assessment/Plan Hospital Course 1 septic shock secondary to right foot infection with possible soft tissue infection, necrotizing fasciitis (?). Now with gram-negative bacteremia + sp Rt BKA on 08/26/18 2. Diabetes mellitus type II, controlled. 3. Acute kidney injury on chronic kidney disease. 4. Hyponatremia, resolved. 5. Hypotension,resolved 6. Right BKA 7. Anemia, likely anemia of chronic disease, no blood loss no history of GI bleeding 8 Leukocytosis resolved 9 hypocalcemia Assessment/Plan - cw epogen thousand units Friday - HB 7.5 -creatinine down -- cw lantus, changed to demarcus Ruiz. is given for Glypizide, januvia per insurance - iv lasix for edema -c/w bp meds - cw PT - gi prophylaxis is Protonix -dvt PROPHYLAXIS , unable to tolerate, anemia. 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 which is not covered,epogen not covered and snf not covered -epogen : will recheck ferritin/ fe michele, auth form had been filled -[facility] being called -spoke to Result Diagram: 09/14/18 0423 09/14/18 0423 Results 24hrs Laboratory Tests Test 09/16/18 12:30 09/16/18 17:25 09/16/18 20:48 09/17/18 07:47 Bedside Glucose 136 132 165 88 Subjective 24 Hr Interval Summary Constitutional: no complaints Exam/Review of Systems Exam Vitals Vital Signs Date Temp Pulse Resp B/P (MAP) Pulse Ox O2 O2 Flow FiO2 Time Delivery Rate 09/17/18 98.6 76 20 146/84 96 08:00 (104) 09/16/18 Room Air 14:05 Intake and Output 09/16/18 09/16/18 09/17/18 1515:00 23:00 07:00 IntakeIntake Total 660 ml 400 ml OutputOutput Total 850 ml 500 ml 1100 ml BalanceBalance -190 ml -500 ml -700 ml Constitutional: alert, oriented Head: normocephalic Eyes: nl conjunctiva Neck: supple Respiratory: clear to auscultation Cardiovascular: regular rate and rhythm Gastrointestinal: soft Musculoskeletal: other (right leg BKA) Results Results 24hrs Laboratory Tests Test 09/16/18 12:30 09/16/18 17:25 09/16/18 20:48 09/17/18 07:47 Bedside Glucose 136 132 165 88 Medications Medication Current Medications Ferrous Sulfate (Ferrous Sulfate (Ec)) 325 mg DAILY PO Last administered on 09/17/18at 09:12; Admin Dose 325 MG; Start 08/24/18 at 09:00 Linagliptin (Tradjenta) 5 mg DAILY PO Last administered on 09/17/18at 09:12; Admin Dose 5 MG; Start 08/24/18 at 09:00 Pentoxifylline (Trental) 400 mg TID PO Last administered on 09/17/18at 09:12; Admin Dose 400 MG; Start 08/24/18 at 09:00 Miscellaneous Information 1 ea NOTE XX ; Start 08/24/18 at 02:30 Glucose (Glutose) 15 gm Q15M PRN PO DECREASED GLUCOSE Last administered on 09/05/18at 07:57; Admin Dose 15 GM; Start 08/24/18 at 02:30 Glucose (Glutose) 22.5 gm Q15M PRN PO DECREASED GLUCOSE; Start 08/24/18 at 02:30 Dextrose (D50w Syringe) 25 ml Q15M PRN IV DECREASED GLUCOSE; Start 08/24/18 at 02:30 Dextrose (D50w Syringe) 50 ml Q15M PRN IV DECREASED GLUCOSE; Start 08/24/18 at 02:30 Glucagon (Glucagen) 1 mg Q15M PRN IM DECREASED GLUCOSE; Start 08/24/18 at 02:30 Glucose (Glutose) 15 gm Q15M PRN BUCCAL DECREASED GLUCOSE; Start 08/24/18 at 02:30 Pantoprazole (Protonix Tab) 40 mg DAILY@06 PO Last administered on 09/17/18at 05:29; Admin Dose 40 MG; Start 08/24/18 at 06:00 Acetaminophen (Tylenol Tab) 650 mg Q6H PRN PO MILD PAIN(1-3)OR ELEVATED TEMP Last administered on 08/31/18 14:03; Admin Dose 650 MG; Start 08/24/18 at 03:00 Ondansetron HCl (Zofran Inj) 4 mg Q6H PRN IV NAUSEA AND/OR VOMITING Last administered on 08/25/18 09:10; Admin Dose 4 MG; Start 08/24/18 at 03:00 Acetaminophen/ Hydrocodone Bitart ([place] (5/325)) 1 tab Q6H PRN PO MODERATE PAIN LEVEL 4-6 Last administered on 08/27/18 06:18; Admin Dose 1 TAB; Start 08/24/18 at 03:00 Miscellaneous Information (Pending Santyl Order For Wound Care) This patient mora... PRN PRN XX WOUND CARE; Start 08/24/18 at 03:00 Collagenase (Santyl) 1 applic DAILY PRN TOP PRN Last administered on 09/14/18 09:14; Admin Dose 1 APPLIC; Start 08/24/18 at 09:00 Insulin Aspart (Novolog Insulin Pen) NOVOLOG *MILD* ALGORITHM WITH MEALS BEDTIME SC Last administered on 09/15/18 12:03; Admin Dose 1 UNIT; Start 08/24/18 at 08:00 Diagnostic Test (Pha) (Accu-Chek) 1 ea 02 XX Last administered on 09/11/18 02:13; Admin Dose 1 EA; Start 08/26/18 at 02:00 Docusate Sodium (Colace) 100 mg BID PRN PO CONSTIPATION Last administered on 08/29/18 12:38; Admin Dose 100 MG; Start 08/28/18 at 09:00 Polyethylene Glycol (Miralax) 17 gm DAILY PRN PO CONSTIPATION; Start 08/29/18 at 14:30 Amlodipine Besylate (Norvasc) 10 mg DAILY PO Last administered on 09/17/18 09:12; Admin Dose 10 MG; Start 08/31/18 at 09:00 Calcium Carbonate (Tums) 500 mg PC MEALS PO Last administered on 09/17/18 09:11; Admin Dose 500 MG; Start 08/30/18 at 13:00 Metoprolol Succinate (Toprol Xl) 12.5 mg DAILY PO Last administered on 09/17/18 09:12; Admin Dose 12.5 MG; Start 09/01/18 at 14:00 Insulin Glargine (Lantus) 10 units DAILY@2000 SC Last administered on 09/16/18at 20:51; Admin Dose 10 UNITS; Start 09/08/18 at 20:00 Epoetin Chris-epbx (Retacrit (Non-Esrd)) 10,000 unit MoWeFr@1700 SC Last admini stered on 09/16/18at 17:12; Admin Dose 10,000 UNIT; Start 09/09/18 at 17:00 Furosemide (Lasix) 20 mg DAILY IV Last administered on 09/17/18at 09:16; Admin Dose 20 MG; Start 09/15/18 at 15:00 TEODORO RIDER September 17, 2018 11:10
[2018-09-17 14:00] VITALS: BP 136/75; PULSE 76; RESP 20
[2018-09-17 20:00] VITALS: BP 141/84; PULSE 94; RESP 18
== END 2018-09-17 20:18 | disposition home health service (06) | DRG 853 ==
LOC: E/R 19:41 → PP2 21:27 → ICU 08-24 19:23 → PP2 08-27 10:58
PROVIDERS: ADMIT Internal Medicine Nephrology; ATTEND Internal Medicine Nephrology
PROC: 30233N1 Transfusion of Nonautologous Red Blood Cells into Peripheral Vein, Percutaneous Approach (ICD-10-PCS; 2018-08-24)
PROC: 0Y6H0Z2 Detachment at Right Lower Leg, Mid, Open Approach (ICD-10-PCS; principal; 2018-08-26 22:00)
DX: A41.50 Gram-negative sepsis, unspecified (principal); R65.21 Severe sepsis with septic shock; E11.52 Type 2 diabetes mellitus with diabetic peripheral angiopathy with gangrene; N17.9 Acute kidney failure, unspecified; E87.1 Hypo-osmolality and hyponatremia; E87.2 Acidosis; E11.22 Type 2 diabetes mellitus with diabetic chronic kidney disease; I12.9 Hypertensive chronic kidney disease with stage 1 through stage 4 chronic kidney disease, or unspecified chronic kidney disease; N18.9 Chronic kidney disease, unspecified; E83.51 Hypocalcemia; E87.6 Hypokalemia; D63.1 Anemia in chronic kidney disease; E11.621 Type 2 diabetes mellitus with foot ulcer; L97.519 Non-pressure chronic ulcer of other part of right foot with unspecified severity; E11.21 Type 2 diabetes mellitus with diabetic nephropathy; E78.5 Hyperlipidemia, unspecified; Z79.4 Long term (current) use of insulin; Z89.422 Acquired absence of other left toe(s)
CPT/HCPCS: 36415; 36430; 71045; 73630; 73700; 73718; 80048; 80053; 80202; 81001; 82140; 82270; 82565; 82607; 82728; 82746; 82962; 83010; 83540; 83605; 83735; 84100; 84155; 84165; 84484; 84520; 85014; 85018; 85025; 85045; 85610; 85730; 86850; 86880; 86900; 86901; 86920; 87070; 87081; 88307; 93005; 96374; 96375; 97110; 97116; 97162; 97530; J0131; J1100; J1200; J1815; J1940; J2405; J2543; J2916; J2997; J3370; J3480; J7030; J7040; J7042; J7050; P9016; Q5105; Q5106

== ENCOUNTER 2018-09-20 18:35 | Emergency (ER) | payer OTHER ==
[~2018-09-20] VITALS: Ht 167.6 cm; Wt 75.0 kg
[~2018-09-20 18:35] MED LIST changes: -CIPR500T4 PO; -CLON0.2T12 PO; +Epoetin Alfa-Epbx (Non-Esrd) SC; +Insulin Glargine SC; +METO-335 PO; -NOVO3I SC
[2018-09-20 18:39] VITALS: Ht 167.6 cm; Wt 75.0 kg
--- NOTE | 2018-09-20 20:27 | ERD ---
ER Documentation Chief Complaint Chief Complaint PT reports fall and RBK amputation opened HPI 52-year-old man complaining of bleeding to right lower extremity stump, he is status post right BKA recently and lost balance today while in the bathroom and the stump struck the floor and caused gaping wound dehiscence and bleeding. His delio were recently removed. He denies head or neck injury and he had no loss of consciousness. ROS All systems reviewed and are negative except as per history of present illness. Medications Home Meds Active Scripts [Insulin Glargine] 100 UNITS/ML SOLN No Conflict Check, 8 UNITS SC DAILY@1999 Prov:GINA SUTTON MD 09/16/18 Metoprolol Succinate* (Toprol XL*) 25 Mg Tab.sr.24h, 12.5 MG PO DAILY for 30 Days Prov:GINA SUTTON MD 09/16/18 [Epoetin Chris-Epbx (Non-Esrd)] 45009 UNIT/1 ML SOLUTION No Conflict Check, 87676 UNIT SC MoWeFr@1700 for 28 Days Prov:GINA SUTTON MD 09/16/18 Ferrous Sulfate* (Ferrous Sulfate*) 325 Mg Tabec, 325 MG PO BID for 30 Days, TAB Prov:GINA SUTTON MD 09/16/18 Amlodipine Besylate* (Amlodipine Besylate*) 5 Mg Tablet, 10 MG PO DAILY for 30 Days, TAB Prov:TEODORO RIDER 07/19/18 Pentoxifylline* (Pentoxifylline*) 400 Mg Tablet.sa, 400 MG PO TID for 30 Days Prov:TEODORO RIDER 07/19/18 Linagliptin (TRADJENTA) 5 Mg Tablet, 5 MG PO DAILY for 30 Days, TAB Prov:GINA SUTTON MD 03/18/18 Discontinued Scripts Insulin Aspart* (Novolog Insulin Pen*) 100 Unit/Ml Soln, 0 UNIT SC AC MEALS AND BEDTIME for 30 Days Prov:TEODORO RIDER 07/19/18 Clonidine Hcl* (Catapres*) 0.2 Mg Tablet, 0.2 MG PO TID for 30 Days, TAB Prov:TEODORO RIDER 07/19/18 Ciprofloxacin Hcl* (Ciprofloxacin Hcl*) 500 Mg Tablet, 500 MG PO BID@18 for 42 Days, TAB Prov:TEODORO RIDER 07/19/18 Allergies Allergies: Coded Allergies: No Known Allergy (Unverified , 07/04/18) PMhx/Soc History of bilateral lower extremity chronic osteomyelitis and dry gangrene, peripheral arterial disease, diabetes, chronic renal insufficiency, anemia, recent right BKA, chronic lower extremity edema History of Surgery: Yes (Left foot 3RD, 4TH, AND 5TH TOE, RIGHT LEG BKA) Anesthesia Reaction: No Hx Neurological Disorder: No Hx Respiratory Disorders: No Hx Cardiac Disorders: Yes (HTN ) Hx Psychiatric Problems: Yes (Anxiety ) Hx Miscellaneous Medical Probl: No Hx Alcohol Use: No Hx Substance Use: No Hx Tobacco Use: No Smoking Status: Never smoker FmHx Family History: No diabetes Physical Exam Vitals Vital Signs Date Temp Pulse Resp B/P (MAP) Pulse Ox O2 O2 Flow FiO2 Time Delivery Rate 09/20/18 97.6 88 20 146/99 Room Air 21:40 (115) 09/20/18 85 22 160/91 100 Room Air 19:15 (114) 09/20/18 97.2 85 16 155/94 98 18:39 (114) Physical Exam Const: No acute distress, well-developed well-nourished, afebrile Resp: Clear to auscultation bilaterally Cardio: Regular rate and rhythm, no murmurs Skin: 8 cm gaping postop incision to the right lower extremity stump with mild bleeding the skin around the incision site appears clean and dry without induration or erythema Ext: Chronic stasis dermatitis and edema to the left lower extremity with chronic thickening of the skin to the left foot and chronic ulcerative changes to the toes. No purulent discharge Results 24 hrs Current Medications Medications Dose Sig/Bridger Start Time Status Last (Trade) Ordered Route PRN Stop Time Admin Dose Reason Admin Lidocaine 20 ml ONCE ONCE 09/20/18 DC 09/20/18 (Xylocaine SC 20:30 21:17 1% (Mdv) 20 09/20/18 20:31 ml) Procedures/MDM Right BKA stump was cleansed and irrigated. I administered a cc of 1% lidocaine to the subcutaneous tissue at the incision site. 12 delio were placed with good approximation of the skin, patient tolerated procedure well final ankle laceration was about 10 cm Patient feels much better at this time, and vital signs are normal, symptoms have improved. I did give strict instructions to return to the ED if symptoms continue or worsen, patient will otherwise follow-up with primary care physician. Patient understood instructions and agreed to plan. Disclaimer: Inadvertent spelling and grammatical errors are likely due to EHR/dictation software use and do not reflect on the overall quality of patient care. Also, please note that the electronic time recorded on this note does not necessarily reflect the actual time of the patient encounter. Departure Diagnosis: Primary Impression: Postoperative dehiscence of skin wound Encounter type: initial encounter Qualified Codes: T81.31XA - Disruption of external operation (surgical) wound, not elsewhere classified, initial encounter Additional Impression: Skin laceration Condition: Good MARCO ANTONIO GARCIA MD September 20, 2018 20:27
[2018-09-20] MEDS ORDERED: LIDOCAINE 1% (MDV) 20 ML INJ SC ONE (20:30)
[2018-09-20 21:40] VITALS: BP 146/99; PULSE 88; RESP 20
== END 2018-09-20 22:13 | disposition home or self-care (01) ==
LOC: FTE 18:35 → E/R 22:13
DX: S81.811A Laceration without foreign body, right lower leg, initial encounter (principal); T81.31XA Disruption of external operation (surgical) wound, not elsewhere classified, initial encounter; N18.9 Chronic kidney disease, unspecified; I12.9 Hypertensive chronic kidney disease with stage 1 through stage 4 chronic kidney disease, or unspecified chronic kidney disease; E11.22 Type 2 diabetes mellitus with diabetic chronic kidney disease; W18.39XA Other fall on same level, initial encounter; Y82.9 Unspecified medical devices associated with adverse incidents; Y92.002 Bathroom of unspecified non-institutional (private) residence as the place of occurrence of the external cause; Z79.4 Long term (current) use of insulin